=== PATIENT | male | born 1940 | race Caucasian/White ===

== ENCOUNTER 2021-04-19 11:20 | Inpatient (IN) ==
[2021-04-19] MEDS ORDERED: AMIODARONE / D5W 150 MG/100 ML BAG IV STA (12:12)
[2021-04-19] MEDS ORDERED: STAT IV Infusion **Titration per Protocol STA (12:12)
[2021-04-19] MEDS ORDERED: AMIODARONE IV BOLUS & DRIP IV STA (12:12)
[2021-04-19] MEDS ORDERED: 0.2 MICRON FILTER SET 1 EA IV ONE (12:12)
[2021-04-19 12:21] LABS: Basophils # (auto) 0.01 K/uL (0-0.2); Basophils % (auto) 0.2 %; Eosinophils # (auto) 0.15 K/uL (0-0.5); Eosinophils % (auto) 2.6 %; Hematocrit (blood only) 44.9 % (42-52); Hemoglobin 14.8 g/dL (14.0-18.0); Immature Granulocytes # (auto) 0.01 K/uL (0.00-0.02); Immature Granulocytes % (auto) 0.2 %; Lymphocytes # (auto) 1.27 K/uL (1.2-3.4); Lymphocytes % (auto) 22.2 %; Mean Corpuscular Hemoglobin 30.5 pg (25-34); Mean Corpuscular Volume 92.4 fL (80-100); Mean Platelet Volume 10.3 fL (7.4-10.4); Monocytes # (auto) 0.43 K/uL (0.11-0.59); Monocytes % (auto) 7.5 %; Neutrophils # (auto) 3.84 K/uL (1.4-6.5); Neutrophils % (auto) 67.3 %; Platelet Count 181 K/uL (130-400); RDW Coefficient of Variation 13.8 % (11.5-14.5); RDW Standard Deviation 46.8 fL (36.4-46.3); Red Blood Count 4.86 M/uL (4.7-6.1); White Blood Count 5.71 K/uL (4.8-10.8)
[2021-04-19] MEDS ORDERED: AMIODARONE / D5W 360 MG/200 ML BAG IV ONE (12:23)
--- NOTE | 2021-04-19 12:23 | Emergency Department Note ---
Impression & Plan Ventricular tachycardia, Chest pain, Cardiac defibrillator in place ED Provider Note Provider: Willie Swann MD DATE OF SERVICE: 04/16/2021 CHIEF COMPLAINT: Pacemaker defibrillation, referred HISTORY OF PRESENT ILLNESS: Patient is a 80-year-old gentleman extensive history of cardiac disease including prior CABG x2, stenting, and pacemaker placement presenting here today referred by his doctor for AICD defibrillation. Patient states yesterday he was doing some work and began to experience a bit of chest discomfort. Took a nitroglycerin and then shortly thereafter felt a little bit dizzy for very brief period and then received a jolt. Since then has not had further issues such as chest pain, shortness of breath, or lightheadedness. Patient denies recent illness. Patient states compliance with her medication including his aspirin, Plavix, and metoprolol. Patient referred here by his doctor for further evaluation given the pacemaker defibrillation which was interrogated in the office and reported to show evidence of episode of VT (~10- 12 secs shock x1 with termination) REVIEW OF SYSTEMS: A total of 10 review of systems was obtained and negative except as stated above in the HPI. 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 NECK: Trachea midline. ENT: Mucous membranes pink and moist. LUNGS: Airway patent. No retractions. Breath sounds clear with good air entry bilaterally. HEART: Regular rate and rhythm. No chest wall tenderness ABDOMEN: Soft and non-tender, without guarding or rebound. SKIN: Acyanotic, warm, dry, without rashes EXTREMITIES: Without swelling, tenderness or deformity NEUROLOGICAL: No focal deficits. No aphasia. No facial droop or slurred speech. Ambulatory. EK bpm sinus rhythm with first-degree AV block occasionally ventricular paced rhythms. No acute ST segment elevation with inferior and lateral T wave inversions noted in a QTC of 464.Compared to previous from July 192009 now with some paced rhythm however fairly persistent T wave inversions. CONTINUOUS CARDIAC MONITORING: was ordered and showed a heart rate of 60-80s bpm in sinus rhythm first-degree block with intermittently paced rhythms without evidence of V. tach. Patient's laboratory studies and imaging reviewed. Differential includes Premature contractions, cardiac ischemia, electrolyte abnormality, cardiac dysrhythmia, thyroid dysfunction, pulmonary embolism, infection, gastrointestinal, as well as other pathologies. IMPRESSION/MEDICAL DECISION MAKING: Patient denies any active chest pain or complaints at this time.'s extensive cardiac history. Defibrillated by his AICD yesterday after an episode of chest pain with an episode of ventricular tachycardia for approximately 10 to 12 seconds. Seen at bedside by Dr. 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 Patient will be loaded with amiodarone and start an amiodarone drip per cardiology direction. EKG here today without STEMI or obvious significant arrhythmia. Basic labs were obtained. Chest x-ray obtained. Doubt this is acute dissection or PE given the patient's lack of complaint at this time but question if there is some ongoing ischemia versus an episode of dysrhythmia from his underlying cardiac disease and CAD. Blood work today without significant leukocytosis or anemia. No significant electrolyte abnormality noted. Troponin level detectable but an abnormal at 0.044. Again patient without active chest pain at this time. Cardiology is making inquiries to see if the patient can be transferred to [facility] for advanced cardiac catheterization care. Given the current pandemic and busyness of the hospitals patient will likely need to be monitored here until this can be arranged. Hospitalist made aware. Cardiology ordered a TTE and given some delay in transfer planning for cardiac catheterization. DIAGNOSIS: Pacemaker defibrillation, chest pain/angina, ventricular tachycardia DISPOSITION: Hospitalist will evaluate Patient was agreeable with this plan. Critical Care I have personally spent 33 minutes of critical care time in the direct management of this patient. This includes bedside care, interpretation of diagnostic studies, and testing, discussion with consultants, patient, and other required patient management activities. These 33 minutes is in excess of all separately billable procedures. Past Med/Surg History Medical History (Updated 04/19/21 @ 14:18 by Ken Jacobs DO) BPH (benign prostatic hyperplasia) CAD (coronary artery disease) CKD (chronic kidney disease) stage 3, GFR 30-59 ml/min GERD (gastroesophageal reflux disease) H/O cardiac arrest H/O myocardial ischemia HTN (hypertension) Hypothyroidism ICD (implantable cardioverter-defibrillator) in place PLACED 2012 @ [facility] LAST CHECKED VIA REMOTE 09/20/2017 Ischemic cardiomyopathy EF 30-35% Pacemaker PLACED 2012 LAST CHECKED VIA REMOTE 09/20/2017 Prostate cancer Dx 2012, surveillance only Stable angina pectoris Systolic CHF Surgical History (System 11/20/19 @ 11:36 by Eleni Haro) Encounter for insertion of cardiac resynchronization therapy defibrillator H/O two vessel coronary artery bypass graft 1990 and 1999 History of appendectomy History of cardiac cath X6 STENTS (2012 & 2014 [facility]) UNSURE OF DATES -- WILL BRING STENT CARDS DOS History of tonsillectomy Social History (System 11/20/19 @ 11:36 by Eleni Haro) Smoking Status: Never smoker Second Hand Exposure: No; Hx Alcohol Use: No Hx Substance Use: No Preferred Language: Salvadorean Communication Ability: Effective Solution Professional Required: No Beliefs That Will Affect Care: None Current Living Situation: Alone Feels Safe at Home: Yes Assistive Devices: Glasses Allergies Allergies Allergy/AdvReac Type Severity Reaction Status Date / Time pantoprazole [From Protonix] Allergy Unknown Hives Verified 11/20/19 11:36 sucralfate Allergy Unknown Hives Verified 11/20/19 11:36 Home Meds Home Medications Medication Instructions Recorded Confirmed lisinopril 20 mg tablet 20 mg PO QAM #0 07/19/09 04/19/21 amlodipine 5 mg tablet 5 mg PO QAM #0 08/15/11 04/19/21 levothyroxine 50 mcg tablet 50 mcg PO QAM #0 08/15/11 04/19/21 aspirin 81 mg tablet,delayed 81 mg PO QAM 01/16/18 04/19/21 release (Aspirin Low Dose) clopidogrel 75 mg tablet (Plavix) 75 mg PO QAM 01/16/18 04/19/21 finasteride 5 mg tablet 5 mg PO QAM 01/16/18 04/19/21 isosorbide mononitrate 30 mg 30 mg PO QAM 01/16/18 04/19/21 tablet,extended release 24 hr metoprolol succinate 50 mg 50 mg PO QAM 01/16/18 04/19/21 tablet,extended release 24 hr nitroglycerin 0.4 mg sublingual 1 dose SUBLINGUAL UD PRN 01/16/18 04/19/21 tablet (Nitrostat) metoprolol succinate 25 mg 25 mg PO QPM 04/19/21 04/19/21 tablet,extended release 24 hr zoster vaccine live (PF) 1 ea IM Q2M 04/19/21 04/19/21 Results & Data (ED) Vital Signs Vital Signs - 24 hr 04/19/21 11:27 04/19/21 12:19 04/19/21 12:20 Temperature 36.7 C Temperature Source Temporal Artery Scan Pulse Rate 71 66 63 Pulse Rate [Left Radial] Pulse Rate from SpO2 Sensor 66 62 Pulse Rhythm Pulse Rhythm [Left Radial] Pulse Strength [Left Radial] Respiratory Rate 18 21 23 Respiratory Effort / Characteristics Non-Labored Spontaneous Respiratory Depth Normal Respiratory Pattern Regular Blood Pressure 150/87 H Blood Pressure [Left Radial Artery] Blood Pressure Mean 108 Blood Pressure Mean [Left Radial Artery] Blood Pressure Position Sitting Blood Pressure Position [Left Radial Artery] Pulse Oximetry 98 97 96 Oxygen Delivery Method Room Air Sepsis Recent Fever Within 48 Hours No Sepsis New/Unexplained Change in Mental Status N/A Sepsis Action Taken by Nursing No Action Required 04/19/21 12:30 04/19/21 12:40 04/19/21 12:50 Temperature Temperature Source Pulse Rate 67 67 73 Pulse Rate [Left Radial] Pulse Rate from SpO2 Sensor 64 66 67 Pulse Rhythm Pulse Rhythm [Left Radial] Pulse Strength [Left Radial] Respiratory Rate 22 22 21 Respiratory Effort / Characteristics Respiratory Depth Respiratory Pattern Blood Pressure Blood Pressure [Left Radial Artery] Blood Pressure Mean Blood Pressure Mean [Left Radial Artery] Blood Pressure Position Blood Pressure Position [Left Radial Artery] Pulse Oximetry 94 98 99 Oxygen Delivery Method Sepsis Recent Fever Within 48 Hours Sepsis New/Unexplained Change in Mental Status Sepsis Action Taken by Nursing 04/19/21 12:51 04/19/21 12:54 04/19/21 13:00 Temperature Temperature Source Pulse Rate 64 66 Pulse Rate [Left Radial] 64 Pulse Rate from SpO2 Sensor 66 Pulse Rhythm Regular Pulse Rhythm [Left Radial] Regular Pulse Strength [Left Radial] Normal Respiratory Rate 23 23 24 Respiratory Effort / Characteristics Non-Labored Respiratory Depth Normal Respiratory Pattern Regular Blood Pressure Blood Pressure [Left Radial Artery] 116/74 Blood Pressure Mean Blood Pressure Mean [Left Radial Artery] 88 Blood Pressure Position Blood Pressure Position [Left Radial Artery] Sitting Pulse Oximetry 98 98 97 Oxygen Delivery Method Room Air Room Air Sepsis Recent Fever Within 48 Hours Sepsis New/Unexplained Change in Mental Status Sepsis Action Taken by Nursing 04/19/21 13:10 04/19/21 13:20 Temperature Temperature Source Pulse Rate 62 61 Pulse Rate [Left Radial] Pulse Rate from SpO2 Sensor 61 Pulse Rhythm Pulse Rhythm [Left Radial] Pulse Strength [Left Radial] Respiratory Rate 25 H 20 Respiratory Effort / Characteristics Respiratory Depth Respiratory Pattern Blood Pressure Blood Pressure [Left Radial Artery] Blood Pressure Mean Blood Pressure Mean [Left Radial Artery] Blood Pressure Position Blood Pressure Position [Left Radial Artery] Pulse Oximetry 97 Oxygen Delivery Method Sepsis Recent Fever Within 48 Hours Sepsis New/Unexplained Change in Mental Status Sepsis Action Taken by Nursing Laboratory Data Result diagrams: 04/19/21 Unknown 04/19/21 Unknown Lab Results 04/19/21 04/19/21 04/19/21 Range/Units 12:50 Unknown Unknown WBC 5.71 (4.8-10.8) K/uL RBC 4.86 (4.7-6.1) M/uL Hgb 14.8 (14.0-18.0) g/dL Hct 44.9 (42-52) % MCV 92.4 (80-100) fL MCH 30.5 (25-34) pg MCHC 33.0 (32-36) g/dL RDW Std Deviation 46.8 H (36.4-46.3) fL RDW Coeff of Ángel 13.8 (11.5-14.5) % Plt Count 181 (130-400) K/uL MPV 10.3 (7.4-10.4) fL Immature Gran % (Auto) 0.2 % Neut % (Auto) 67.3 % Lymph % (Auto) 22.2 % Glades % (Auto) 7.5 % Eos % (Auto) 2.6 % Baso % (Auto) 0.2 % Neut # (Auto) 3.84 (1.4-6.5) K/uL Lymph # (Auto) 1.27 (1.2-3.4) K/uL Glades # (Auto) 0.43 (0.11-0.59) K/uL Eos # (Auto) 0.15 (0-0.5) K/uL Baso # (Auto) 0.01 (0-0.2) K/uL Immature Gran # (Auto) 0.01 (0.00-0.02) K/uL PT 11.1 (9.0-12.0) Seconds INR 1.1 (0.9-1.1) APTT 24.6 (21.0-31.0) Seconds PTT Ratio 0.9 Sodium (136-145) mmol/L Potassium (3.5-5.1) mmol/L Chloride (98-107) mmol/L Carbon Dioxide (21-32) mmol/L Anion Gap (3-11) BUN (7-18) mg/dl Creatinine (0.6-1.4) mg/dl Est Cr Clr Drug Dosing ml/min Est GFR ( Amer) ml/min Est GFR (Non-Af Amer) ml/min BUN/Creatinine Ratio (10-20) Glucose (70-99) mg/dl Calcium (8.5-10.1) mg/dl Magnesium (1.8-2.4) mg/dl Total Bilirubin (0.2-1) mg/dl AST (15-37) U/L ALT (12-78) Alkaline Phosphatase (45-117) U/L Troponin I (0-0.045) ng/ml Total Protein (6.4-8.2) gm/dl Albumin (3.4-5.0) gm/dl Globulin (2.5-4.0) gm/dl Albumin/Globulin Ratio (0.9-2) SARS-CoV-2, RNA, NAAT NEGATIVE (NEGATIVE) 04/19/21 Range/Units Unknown WBC (4.8-10.8) K/uL RBC (4.7-6.1) M/uL Hgb (14.0-18.0) g/dL Hct (42-52) % MCV (80-100) fL MCH (25-34) pg MCHC (32-36) g/dL RDW Std Deviation (36.4-46.3) fL RDW Coeff of Ángel (11.5-14.5) % Plt Count (130-400) K/uL MPV (7.4-10.4) fL Immature Gran % (Auto) % Neut % (Auto) % Lymph % (Auto) % Glades % (Auto) % Eos % (Auto) % Baso % (Auto) % Neut # (Auto) (1.4-6.5) K/uL Lymph # (Auto) (1.2-3.4) K/uL Glades # (Auto) (0.11-0.59) K/uL Eos # (Auto) (0-0.5) K/uL Baso # (Auto) (0-0.2) K/uL Immature Gran # (Auto) (0.00-0.02) K/uL PT (9.0-12.0) Seconds INR (0.9-1.1) APTT (21.0-31.0) Seconds PTT Ratio Sodium 142 (136-145) mmol/L Potassium 4.2 (3.5-5.1) mmol/L Chloride 110 H (98-107) mmol/L Carbon Dioxide 27 (21-32) mmol/L Anion Gap 5.0 (3-11) BUN 17 (7-18) mg/dl Creatinine 1.25 (0.6-1.4) mg/dl Est Cr Clr Drug Dosing 41.1 ml/min Est GFR ( Amer) 63.1 ml/min Est GFR (Non-Af Amer) 54.4 ml/min BUN/Creatinine Ratio 13.4 (10-20) Glucose 86 (70-99) mg/dl Calcium 8.8 (8.5-10.1) mg/dl Magnesium 2.5 H (1.8-2.4) mg/dl Total Bilirubin 0.7 (0.2-1) mg/dl AST 17 (15-37) U/L ALT 29 (12-78) Alkaline Phosphatase 60 (45-117) U/L Troponin I 0.044 (0-0.045) ng/ml Total Protein 7.7 (6.4-8.2) gm/dl Albumin 3.6 (3.4-5.0) gm/dl Globulin 4.1 H (2.5-4.0) gm/dl Albumin/Globulin Ratio 0.9 (0.9-2) SARS-CoV-2, RNA, NAAT (NEGATIVE) Administered Medications Amiodarone HCl/Dextrose (Nexterone / D5w) 360 mg in 200 mls @ 33.333 mls/hr IV ONE ONE Stop: 04/19/21 18:22 Last Admin: 04/19/21 13:04 Dose: 33.3 mls/hr Documented by: [id number] Cosigned by: [id number] Discontinued Medications Amiodarone HCl (Amiodarone Iv Bolus & Drip) 1 ea IV NOW STA; Protocol Stop: 04/19/21 12:13 Last Admin: 04/19/21 12:42 Dose: 1 ea Documented by: [id number] Amiodarone HCl/Dextrose (Nexterone / D5w) 150 mg in 100 mls @ 600 mls/hr IV NOW STA Stop: 04/19/21 12:21 Last Admin: 04/19/21 12:42 Dose: 600 mls/hr Documented by: [id number] Cosigned by: [id number] Miscellaneous (Stat Iv Infusion Titration Per Protocol) 1 ea N/A NOW STA Stop: 04/19/21 12:13 Last Admin: 04/19/21 12:42 Dose: 1 ea Documented by: [id number] Imaging Data Radiologist's Impression: Chest X-Ray 04/19/21 12:13 XR chest 1V portable HISTORY: 80 years-old Male pacemaker defib status post placement of a left subclavian pacer COMPARISON: Chest radiograph 07/19/2009 TECHNIQUE: Portable AP view of the chest FINDINGS: Cardiac silhouette is mildly enlarged. Prior median sternotomy. Surgical clips of the left heart border with coronary arterial stents. No pneumothorax, pleural effusion or overt pulmonary edema. Mild linear subsegmental left basilar opacities. The lead left subclavian pacer/AICD. No acute fracture. IMPRESSION: 1. Cardiomegaly with left subclavian pacer/AICD. 2. Minimal linear subsegmental left basilar scarring/atelectasis. ACT 112: Negative or not required by law. The above report was generated using voice recognition software. It may contain grammatical, syntax or spelling errors. Electronically signed by: Ghanshyam Jon M.D. 04/19/2021 12:32 PM Discharge Plan Visit Data Chief Complaint: Cardiac Assessment Stated Complaint: CHECK DEFIBILATOR/ERLINDA OFF YESTERDAY ED Provider: Willie Swann Discharge Problem: Ventricular tachycardia, Chest pain, Cardiac defibrillator in place Patient Disposition: Being Evaluated by Hospitalist Forms Stand Alone Forms: [facility] [employer] - [place] Prescriptions Prescriptions: No Action lisinopril 20 mg Tablet 20 mg PO QAM Qty: 0 RF: 0 amlodipine 5 mg Tablet 5 mg PO QAM Qty: 0 RF: 0 levothyroxine 50 mcg Tablet 50 mcg PO QAM Qty: 0 RF: 0 isosorbide mononitrate 30 mg Tablet Extended Release 24 Hr 30 mg PO QAM RF: 0 clopidogrel [Plavix] 75 mg Tablet 75 mg PO QAM RF: 0 metoprolol succinate 50 mg Tablet Extended Release 24 Hr 50 mg PO QAM RF: 0 finasteride 5 mg Tablet 5 mg PO QAM RF: 0 aspirin [Aspirin Low Dose] 81 mg Tablet,Delayed Release (Dr/Ec) 81 mg PO QAM RF: 0 nitroglycerin [Nitrostat] 0.4 mg Tablet, Sublingual 1 dose Sublingual UD PRN (Reason: Chest Pain) RF: 0 metoprolol succinate 25 mg Tablet Extended Release 24 Hr 25 mg PO QPM RF: 0 zoster vaccine live (PF) 1 ea IM Q2M RF: 0 Referrals Referrals: Arpit Thurston MD [Primary Care Provider] - Discharge Problem: Chest pain Qualifiers: Chest pain type: unspecified Qualified Code(s): R07.9 - Chest pain, unspecified
[2021-04-19 12:32] LABS: INR 1.1 (0.9-1.1); Partial Thromboplastin Ratio 0.9; Partial Thromboplastin Time 24.6 Seconds (21.0-31.0); Prothrombin Time 11.1 Seconds (9.0-12.0)
--- NOTE | 2021-04-19 12:34 | XRay Report ---
XR chest 1V portable HISTORY: 80 years-old Male pacemaker defib status post placement of a left subclavian pacer COMPARISON: Chest radiograph 07/19/2009 TECHNIQUE: Portable AP view of the chest FINDINGS: Cardiac silhouette is mildly enlarged. Prior median sternotomy. Surgical clips of the left heart bord er with coronary arterial stents. No pneumothorax, pleural effusion or overt pulmonary edema. Mild li near subsegmental left basilar opacities. The lead left subclavian pacer/AICD. No acute fracture. IMPRESSION: 1. Cardiomegaly with left subclavian pacer/AICD. 2. Minimal linear subsegmental left basilar scarring/atelectasis. ACT 112: Negative or not required by law. The above report was generated using voice recognition software. It may contain grammatical, syntax o r spelling errors. Electronically signed by: Ghanshyam Jon M.D. 04/19/2021 12:32 PM
--- NOTE | 2021-04-19 12:44 | Cardiology Consultation ---
Date of Consultation April 19, 2021 Assessment & Plan (1) Unstable angina pectoris: (2) Ventricular tachycardia: (3) Cardiac defibrillator in place: 80-year-old male with longstanding history of schema cardiomyopathy, moderate left ventricular systolic dysfunction, previously survived cardiac arrest, presents with worsening crescendo angina pattern for over a week, with angina yesterday followed by appropriate AICD discharge for ventricular fibrillation. At time presentation to the emergency room he has no current chest discomfort. Initial troponin is negative. Mild new repolarization changes in the lateral precordial leads of his EKG without ST elevation. The patient has had multiple complex coronary interventions performed at [facility] most recently in 2014. Initial consideration was hospital hospital transfer for ongoing evaluation and consideration of high risk cardiac catheterization at [facility], however with high emergency room and hospital volumes related to the ongoing pandemic, rapid transfer was not an option. Case reviewed with Dr. Persaud of [facility] interventional cardiology and we reviewed the 2015 films. Option reviewed with patient/son. At this time we will proceed with diagnostic cardiac catheterization here at [facility]. Continue prior to hospital medications including aspirin and clopidogrel. Ad[facility] telemetry floor[facility] amiodarone infusion has been initiated given the recent ventricular arrhythmias. History of Present Illness History of Present Illness Jose HendrixSr is a 73-year-old male seen in cardiology consultation in the emergency room per the request of my partner Dr Danielle and Dr Swann of emergency medicine for the evaluation of unstable angina and recent AICD discharge. The patient has a complex past cardiac history as described below. He has a history of chronic exertional angina, and on a chronic basis for at least the last year he takes nitroglycerin. Recently, for at least the last week he has been having more frequent episodes of angina at lower levels of exertion and has been taking multiple nitroglycerin tablets on a daily basis. 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 His son witnessed it and noticed that he had turned white. His AICD was interrogated remotely today, and it was found that the patient had a ventricular fibrillation event, successfully treated with AICD discharge. He has been in sinus rhythm since. Past Cardiac History: Patient with aggressive early onset coronary heart disease, initially having had coronary bypass graft surgery in 1990 at [place]. He had a second coronary bypass surgery in 1999 (or 2000) in [place] (although the patient's office chart describes that perhaps he had his second surgery at [facility] , the patient tells me he was in [place]) He has had multiple percutaneous coronary interventions in the meantime, most recently having had 3 cardiac catheterizations within a short span in July,, with complex PCI of the vein graft to the obtuse marginal, and 3 drug- eluting stents to the proximal [place] right coronary artery which was completely occluded distally. He has known 100% occlusions of his [place] LAD, circumflex and mid/distal RCA. History of ischemic cardiomyopathy, survived cardiac arrest, [place] dual- chamber AICD (placed 2002) with 8.9 months of estimated generator longevity LVEF 30-35%, chronic RCA territory scar, LAD territory hypokinesis Dyslipidemia Stage IIIa chronic kidney disease Allergies Allergy/AdvReac Type Severity Reaction Status Date / Time pantoprazole [From Protonix] Allergy Unknown Hives Verified 11/20/19 11:36 sucralfate Allergy Unknown Hives Verified 11/20/19 11:36 Home Medications Medication Instructions Recorded Confirmed Type lisinopril 20 mg tablet 20 mg PO QAM #0 07/19/09 02/23/19 History amlodipine 5 mg tablet 5 mg PO QAM #0 08/15/11 02/23/19 History levothyroxine 50 mcg tablet 50 mcg PO QAM #0 08/15/11 02/23/19 History aspirin 81 mg tablet,delayed 81 mg PO QAM 01/16/18 02/23/19 History release (Aspirin Low Dose) clopidogrel 75 mg tablet (Plavix) 75 mg PO QAM 01/16/18 02/23/19 History finasteride 5 mg tablet 5 mg PO QAM 01/16/18 01/20/18 History isosorbide mononitrate 30 mg 30 mg PO QAM 01/16/18 02/23/19 History tablet,extended release 24 hr metoprolol succinate 50 mg 50 mg PO QAM 01/16/18 02/23/19 History tablet,extended release 24 hr nitroglycerin 0.4 mg sublingual 1 dose SUBLINGUAL UD PRN 01/16/18 02/23/19 History tablet (Nitrostat) metoprolol succinate 25 mg 25 mg PO QPM 04/19/21 04/19/21 History tablet,extended release 24 hr zoster vaccine live (PF) 1 ea IM Q2M 04/19/21 04/19/21 History Patient History Medical History (Updated 04/19/21 @ 14:18 by Ken Jacobs DO) BPH (benign prostatic hyperplasia) CAD (coronary artery disease) CKD (chronic kidney disease) stage 3, GFR 30-59 ml/min GERD (gastroesophageal reflux disease) H/O cardiac arrest H/O myocardial ischemia HTN (hypertension) Hypothyroidism ICD (implantable cardioverter-defibrillator) in place PLACED 2012 @ [facility] LAST CHECKED VIA REMOTE 09/20/2017 Ischemic cardiomyopathy EF 30-35% Pacemaker PLACED 2012 LAST CHECKED VIA REMOTE 09/20/2017 Prostate cancer Dx 2011, surveillance only Stable angina pectoris Systolic CHF Surgical History Encounter for insertion of cardiac resynchronization therapy defibrillator H/O two vessel coronary artery bypass graft 1990 and 1999 History of appendectomy History of cardiac cath X6 STENTS (2012 & 2014 [place]) UNSURE OF DATES -- WILL BRING STENT CARDS DOS History of tonsillectomy Social History Smoking Status: Never smoker Second Hand Exposure: No; Hx Alcohol Use: No Hx Substance Use: No Preferred Language: Belgian Communication Ability: Effective Lather Apprentice Required: No Beliefs That Will Affect Care: None Current Living Situation: Alone Feels Safe at Home: Yes Assistive Devices: Glasses Review of Systems Review of Systems: All systems reviewed & are unremarkable except as noted in HPI & below Physical Exam Physical Exam: Temp Pulse Resp BP Pulse Ox 36.7 C 61 20 116/74 97 04/19/21 11:27 04/19/21 13:20 04/19/21 13:20 04/19/21 12:51 04/19/21 13:20 Constitutional: WD/WN, vitals as above Respiratory: normal respiratory effort, lungs clear to auscultation Cardiovascular: RRR, no murmur, no edema Gastrointestinal (Abdomen): normal bowel sounds, soft, nontender, no hepatosplenomegaly Neurologic: PERRL, EOMI, accommodation nl, no face palsy, no dysarthria Results & Data ([facility]) Vital Signs (Past 12 Hours) Vital Signs Temp Pulse Resp BP Pulse Ox 04/19/21 11:27 36.7 C 71 18 150/87 H 98 Laboratory Results Cardiac Enzymes 04/19/21 Range/Units Unknown AST 17 (15-37) U/L Troponin I 0.044 (0-0.045) ng/ml Coagulation 04/19/21 Range/Units Unknown PT 11.1 (9.0-12.0) Seconds APTT 24.6 (21.0-31.0) Seconds CBC 04/19/21 Range/Units Unknown WBC 5.71 (4.8-10.8) K/uL RBC 4.86 (4.7-6.1) M/uL Hgb 14.8 (14.0-18.0) g/dL Hct 44.9 (42-52) % Plt Count 181 (130-400) K/uL Neut # (Auto) 3.84 (1.4-6.5) K/uL Lymph # (Auto) 1.27 (1.2-3.4) K/uL [place] # (Auto) 0.43 (0.11-0.59) K/uL Eos # (Auto) 0.15 (0-0.5) K/uL Baso # (Auto) 0.01 (0-0.2) K/uL Comprehensive Metabolic Panel 04/19/21 Range/Units Unknown Sodium 142 (136-145) mmol/L Potassium 4.2 (3.5-5.1) mmol/L Chloride 110 H (98-107) mmol/L Carbon Dioxide 27 (21-32) mmol/L BUN 17 (7-18) mg/dl Creatinine 1.25 (0.6-1.4) mg/dl Glucose 86 (70-99) mg/dl Calcium 8.8 (8.5-10.1) mg/dl AST 17 (15-37) U/L ALT 29 (12-78) Alkaline Phosphatase 60 (45-117) U/L Total Protein 7.7 (6.4-8.2) gm/dl Albumin 3.6 (3.4-5.0) gm/dl Intake and Output 04/18/21 04/19/21 04/19/21 22:59 06:59 14:59 Other: Weight 69.6 kg Weight Measurement Method Chair Scale Patient Weight 04/20/21 06:59 Weight 69.6 kg Diagnostic Findings EKG performed today 04/19/2021 reviewed independently reveals sinus rhythm at 72 bpm with first-degree AV block, demand atrial and ventricular pacing, incomplete left bundle branch block, T wave inversions in the high lateral leads I and aVL, low amplitude T wave inversions in the lateral precordial leads V4 to V6. -Compared to the previous tracing performed as an outpatient 02/23/2020, the deep T wave inversions in leads I and aVL are chronic, the T wave inversions in leads V4 to V6 are new.
[2021-04-19 12:45] LABS: Albumin Level 3.6 gm/dl (3.4-5.0); BUN Creatinine Ratio 13.4 (10-20); Calcium 8.8 mg/dl (8.5-10.1); Creatinine Clr Calc Pharmacy 41.1 ml/min; Est GFR (African American) 63.1 ml/min; Est GFR (Non-African American) 54.4 ml/min; Magnesium 2.5 mg/dl (1.8-2.4); Potassium 4.2 mmol/L (3.5-5.1)
[2021-04-19 12:49] LABS: Albumin Globulin Ratio 0.9 (0.9-2); Bilirubin,Total 0.7 mg/dl (0.2-1); Globulin 4.1 gm/dl (2.5-4.0); Total Protein 7.7 gm/dl (6.4-8.2); Troponin I 0.044 ng/ml (0-0.045)
--- NOTE | 2021-04-19 14:01 | History & Physical Report ---
Date of Service April 19, 2021 Assessment & Plan (1) Unstable angina pectoris: (2) Ventricular tachycardia: (3) ICD (implantable cardioverter-defibrillator) discharge: Plan: CAD S/P Stents and CABG Ischemic cardiomyopathy, ICD in place Episode VT Patient is 80-year-old male with PMH complex cardiac history including unstable angina, ischemic cardiomyopathy, s/p ICD, history of cardiac arrest, CAD s/p stents and CABG, TIA, CKD III, HTN, HLD, prostate cancer, BPH presented to ER with complaint of episode of chest pain yesterday with firing of his ICD. Denies CP today. In ER vitals stable, initial troponin negative. EKG with some changes. Cardiology-Dr. Jacobs had evaluated patient in ER and initial attempt to transfer to [facility] with patient's complex cardiac history and high risk, however transfer at this time was not available. Dr. Persaud-interventional cardiology took patient to [facility] from ER. Amiodarone drip started in ER. Will continue Continue continue aspirin, Plavix, isosorbide, metoprolol succinate Will start low dose rosuvastatin. prior statin intolerance listed in outpatient notes Trend troponin EKG in a.m. CBC, BMP in a.m. Cardiology following along HTN Continue lisinopril, amlodipine H/O TIA Continue aspirin, plavix Hypothyroid Continue levothyroxine H/O Prostate Cancer, BPH Continue finasteride DVT Prophylaxis SCDs Full Code as per discussion with pt Follows with Dr Gale for routine care Pt was seen and care coordinated with Dr Allison. See addendum History of Present Illness Chief Complaint: ICD fired yesterday Primary Care Provider: Arpit Thurston MD Patient is 80-year-old male with PMH complex cardiac history including unstable angina, ischemic cardiomyopathy, s/p ICD, history of cardiac arrest, CAD s/p stents and CABG, TIA, CKD III, HTN, HLD, prostate cancer, BPH presented to ER with complaint of episode of chest pain yesterday with firing of his ICD. Patient reports was working yesterday using heavy equipment and when he had onset of right chest pain that radiated to right side of jaw. He reports he felt short of breath. He states he took 1 nitro and within 30 minutes chest pain resolved. He does report that had firing of his ICD yesterday and after that he felt dizzy. Patient denies any further chest pain or any recurrent ICD firings. He states "I feel fine right now". Cardiology-Dr. Jacobs had evaluated patient in ER and initial attempt to transfer to [facility] with patient's complex cardiac history and high risk, however transfer at this time was not available. Dr. Persaud-interventional cardiology took patient to [facility] from ER. Denies fever/chills, diaphoresis, N/V/D/C, QUINTERO, dizziness, syncope, vision changes, neck pain, cough, sore throat, choking, otalgia, rhinorrhea, abdominal pain, paresthesias, weakness, extremity weakness, extremity edema, rashes, urinary symptoms. Allergies Allergy/AdvReac Type Severity Reaction Status Date / Time pantoprazole [From Protonix] Allergy Unknown Hives Verified 11/20/19 11:36 sucralfate Allergy Unknown Hives Verified 11/20/19 11:36 Home Medications Medication Instructions Recorded Confirmed Type lisinopril 20 mg tablet 20 mg PO QAM #0 07/19/09 04/19/21 History amlodipine 5 mg tablet 5 mg PO QAM #0 08/15/11 04/19/21 History levothyroxine 50 mcg tablet 50 mcg PO QAM #0 08/15/11 04/19/21 History aspirin 81 mg tablet,delayed 81 mg PO QAM 01/16/18 04/19/21 History release (Aspirin Low Dose) clopidogrel 75 mg tablet (Plavix) 75 mg PO QAM 01/16/18 04/19/21 History finasteride 5 mg tablet 5 mg PO QAM 01/16/18 04/19/21 History isosorbide mononitrate 30 mg 30 mg PO QAM 01/16/18 04/19/21 History tablet,extended release 24 hr metoprolol succinate 50 mg 50 mg PO QAM 01/16/18 04/19/21 History tablet,extended release 24 hr nitroglycerin 0.4 mg sublingual 1 dose SUBLINGUAL UD PRN 01/16/18 04/19/21 History tablet (Nitrostat) metoprolol succinate 25 mg 25 mg PO QPM 04/19/21 04/19/21 History tablet,extended release 24 hr zoster vaccine live (PF) 1 ea IM Q2M 04/19/21 04/19/21 History Past Med/Surg History Medical History (Updated 04/19/21 @ 17:20 by Carmen Finn PA-C) BPH (benign prostatic hyperplasia) CAD (coronary artery disease) CKD (chronic kidney disease) stage 3, GFR 30-59 ml/min GERD (gastroesophageal reflux disease) H/O cardiac arrest H/O myocardial ischemia HTN (hypertension) Hypothyroidism ICD (implantable cardioverter-defibrillator) in place PLACED 2012 @ [facility] LAST CHECKED VIA REMOTE 09/20/2017 Ischemic cardiomyopathy EF 30-35% Pacemaker PLACED 2012 LAST CHECKED VIA REMOTE 09/20/2017 Prostate cancer Dx 2011, surveillance only Stable angina pectoris Systolic CHF Surgical History Encounter for insertion of cardiac resynchronization therapy defibrillator H/O two vessel coronary artery bypass graft 1990 and 1999 History of appendectomy History of cardiac cath X6 STENTS (2012 & 2014 [place]) UNSURE OF DATES -- WILL BRING STENT CARDS DOS History of tonsillectomy Family History (Updated 04/19/21 @ 17:19 by Carmen Finn PA-C) Other Coronary heart disease Social History Smoking Status: Never smoker Second Hand Exposure: No; Hx Alcohol Use: No Hx Substance Use: No Preferred Language: Kiswahili Communication Ability: Effective 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: No Beliefs That Will Affect Care: None Current Living Situation: Alone Other Information That Helps Us Care for You: No Feels Safe at Home: Yes Safety Concerns: Feels Safe At This Time Assistive Devices: Glasses Review of Systems Review of Systems: All systems reviewed & are unremarkable except as noted in HPI & below Physical Exam Physical Exam: General: no distress, WDWN Head: normocephalic, atraumatic Eyes: conjunctiva non-injected, anicteric ENT: normal inspection external ears, nose, mucous membranes moist Neck: supple, trachea midline Lungs: clear, no respiratory distress, no wheezing/rhonchi/rales CV: RRR, no pretibial edema Abd: normal BS, soft, non-tender Ext: no cyanosis, no calf tenderness Neuro: A&O x 3, no focal deficits noted, normal affect Skin: warm, dry Results & Data Results & Data ([facility]) Vital Signs (Past 12 Hours) Vital Signs Temp Pulse Pulse Resp BP BP Pulse Ox 04/19/21 13:20 61 20 97 04/19/21 13:10 62 25 H 04/19/21 13:00 66 24 97 04/19/21 12:54 64 23 98 04/19/21 12:51 64 23 116/74 98 04/19/21 12:50 73 21 99 04/19/21 12:40 67 22 98 04/19/21 12:30 67 22 94 04/19/21 12:20 63 23 96 04/19/21 12:19 66 21 97 04/19/21 11:27 36.7 C 71 18 150/87 H 98 Laboratory Results Short CBC 04/19/21 Range/Units Unknown WBC 5.71 (4.8-10.8) K/uL Hgb 14.8 (14.0-18.0) g/dL Hct 44.9 (42-52) % Plt Count 181 (130-400) K/uL BMP 04/19/21 Unknown Sodium 142 Potassium 4.2 Chloride 110 H Carbon Dioxide 27 BUN 17 Creatinine 1.25 Glucose 86 Calcium 8.8 Cardiac Enzymes 04/19/21 Range/Units Unknown Troponin I 0.044 (0-0.045) ng/ml Liver Function 04/19/21 Range/Units Unknown Total Bilirubin 0.7 (0.2-1) mg/dl AST 17 (15-37) U/L ALT 29 (12-78) Alkaline Phosphatase 60 (45-117) U/L Albumin 3.6 (3.4-5.0) gm/dl Diagnostic Findings Chest X-Ray 04/19/21 12:13 XR chest 1V portable HISTORY: 80 years-old Male pacemaker defib status post placement of a left subclavian pacer COMPARISON: Chest radiograph 07/19/2009 TECHNIQUE: Portable AP view of the chest FINDINGS: Cardiac silhouette is mildly enlarged. Prior median sternotomy. Surgical clips of the left heart border with coronary arterial stents. No pneumothorax, pleural effusion or overt pulmonary edema. Mild linear subsegmental left basilar opacities. The lead left subclavian pacer/AICD. No acute fracture. IMPRESSION: 1. Cardiomegaly with left subclavian pacer/AICD. 2. Minimal linear subsegmental left basilar scarring/atelectasis. ACT 112: Negative or not required by law. The above report was generated using voice recognition software. It may contain grammatical, syntax or spelling errors. Electronically signed by: Ghanshyam Jon M.D. 04/19/2021 12:32 PM Supervising Physician Co-Signing Physician Notes Patient is a 80-year-old male with history of unstable angina, ischemic cardiomyopathy, coronary artery disease and other medical problems presents with history of chest pain relieved with nitroglycerin and firing of ICD yesterday. He states chest pain lasted for about 30 minutes retrosternal, radiating to jaw, associated with shortness of breath. Patient also noticed to have ICD firing associated with dizziness. Please review HPI for complete details of presentation. AICD interrogation showed ventricular fibrillation, successfully AICD discharge. Patient was planned to be sent to emergent cardiac catheterization. His initial troponin was elevated at 0.52, TSH within normal limits 1.3. On exam patient is moderately built and nourished, no apparent distress, normocephalic atraumatic, EOMI, lungs are clear to auscultation, n ormal breath sounds, S1-S2, no murmur, no pedal edema, abdomen soft, nontender, no guarding or rigidity is noted alert, awake, oriented, grossly no focal deficits. Unstable angina, ventricular tachycardia, AICD discharge. Patient is planned for emergent cardiac catheterization. Appreciate cardiology input. We will continue to trend cardiac enzymes, consider resting echo. Plan to resume dual antiplatelet therapy and start on Lipitor. Continue beta-shamir. Further management based on cardiac catheterization. I personally reviewed the record. Patient is interviewed and examined at bedside. Patient's care is coordinated with Carmen Finn PA-C. Please refer to the documentation above for details of patient's presentation and for discussion of other issues.
[2021-04-19] MEDS ORDERED: niCARdipine HCL INJ 2.5 MG/ML 10 ML AMP ONE (14:08)
[2021-04-19] MEDS ORDERED: MIDAZOLAM HCL 1 MG/ML 2ML VIAL ONE ×2 (14:08→15:20)
[2021-04-19] MEDS ORDERED: fentaNYL citrate 100 MCG/2 ML VIAL ONE (14:08)
[2021-04-19] MEDS ORDERED: HEPARIN (PORCINE) 1000 UNIT/ML 10 ML (CATH LAB USE ONLY) ONE (14:09)
[2021-04-19] MEDS ORDERED: NITROGLYCERIN/D5W 100MCG/ML 20ML SYR ONE (14:09)
--- NOTE | 2021-04-19 14:23 | Pre Anesthesia Assessment ---
Date of Service April 19, 2021 Pre Sedation Assessment Vital Signs Temp Pulse Pulse Resp BP BP Pulse Ox 04/19/21 13:20 61 20 97 04/19/21 13:10 62 25 H 04/19/21 13:00 66 24 97 04/19/21 12:54 64 23 98 04/19/21 12:51 64 23 116/74 98 04/19/21 12:50 73 21 99 04/19/21 12:40 67 22 98 04/19/21 12:30 67 22 94 04/19/21 12:20 63 23 96 04/19/21 12:19 66 21 97 04/19/21 11:27 98.1 F 71 18 150/87 H 98 Cardiovascular RRR, no murmur, no edema Respiratory normal respiratory effort, lungs clear to auscultation Pre-Sedation Airway Assessment Smoking Status: Never smoker Hx Sleep Apnea: No Hx Difficult Intubation: No Short, Thick Neck: No Thyromental Distance: < 3.5 Finger Breadths Mallampati Class: III ASA: ASA3 Procedure Planning Contraindications for Sedation: none Current Medications Reviewed: Yes Notes The planned sedation has been discussed with the patient. Informed Consent was obtained. I have identified the patient, determined the appropriateness of sedation and have assessed the patient immediately prior to the procedure. All medicine(s) and interventions are by my order.
[2021-04-19] MEDS ORDERED: CLOPIDOGREL BISULFATE 300 MG TAB ONE (16:09)
--- NOTE | 2021-04-19 16:32 | Post Anesthesia Assessment ---
Date of Service April 19, 2021 Post Sedation Assessment Vital Signs Temp Pulse Pulse Resp BP BP Pulse Ox 04/19/21 16:19 63 16 108/78 95 04/19/21 13:20 61 20 97 04/19/21 13:10 62 25 H 04/19/21 13:00 66 24 97 04/19/21 12:54 64 23 98 04/19/21 12:51 64 23 116/74 98 04/19/21 12:50 73 21 99 04/19/21 12:40 67 22 98 04/19/21 12:30 67 22 94 04/19/21 12:20 63 23 96 04/19/21 12:19 66 21 97 04/19/21 11:27 98.1 F 71 18 150/87 H 98 Recovery Score Activity: Moves 4 extremities Respiration: Deep Breath/Cough Circulation: +/-20% PreAnes Value Consciousness: Fully Awake Oxygen Saturation: > 92% On Room Air Post Anesthesia Score: 10 Discharge Sedation Level of Care: Fast Track Phase II Post Sedation Plan On clinical assessment, the patient appears to have tolerated the sedation without complications. Patient is recovering as anticipated. Patient will continue to be monitored by nursing and may be discharged when sedation discharge criteria are met per below protocol. Upon Completions of procedure up to 15 minutes continue every 5 minute vital signs and the P.A.R. score; then discharge to a Phase I or Fast Track to Phase II per the following guidelines: * Discharge Patient to appropriate Phase II area if PAR is 8 or greater or return to pre- procedure baseline. The post - procedure orders will be as directed. * If PAR score is less than 8 or not return to pre-procedure baseline then patient will follow Phase I monitoring till PAR is reached for Phase II. The Phase I may be done in procedure room or may call to secure a Phase I area. * If naloxone or flumazenil are used for reversal, hold in Phase I for continued monitoring from when last reversal dose was given for a minimum of 60 minutes or longer pending the nurse and/or physician discretion of patient condition before discharge to Phase II. Please call the Sedation Physician to re-evaluate and complete post-note for discharge to Phase II area. Do NOT discharge from procedure sedation or Phase 1 until post- sedation evaluation note is complete by procedure /sedation MD Sedation Discharge Instructions to be given to the patient at discharge to home.
[2021-04-19] MEDS ORDERED: SODIUM CHLORIDE 0.9% 1000ML 1,000 ML IV SCH (16:45)
--- NOTE | 2021-04-19 16:53 | Cardiac Catheterization ---
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 fib) Lesion Segment Name: SVG to D2 Culprit Artery: Yes Stenosis Prior to Rx (%): 95 Chronic Total Occlusion: No IVUS: No FFR: No Pre-Procedure JOE Flow: 2 Previously Treated Lesion: Timeframe: greater than 2 years Treated with Stent: Yes In-Stent Restenosis: Yes Stent Type: KALEN Yes Lesion Complexity: High/C Lesion Length (mm): 12 Thrombus Present: Yes Bifurcation Lesion: No Guidewire Across Lesion: Stenosis Post-Procedure (%): 0 Post-Procedure JOE Flow: 3 Devices(s) Deployed: Yes Yes Intraprocedure Events Significant Disection: No Perforation: No Cardiac Cath Procedure Full Procedure Date April 19, 2021 Pre-Procedure Diagnosis Pre-Procedure Diagnosis: Angina and Arrhythmia AUC Score AUC Score: 8 Post-Procedure Diagnosis Post-Procedure Diagnosis: Severe CAD and Successful PCI Procedure(s) Performed Procedure(s) Performed: Coronary Angiography, Drug Eluting Stent and Bypass Graft Angiography Rubber Goods Repairer Corbin Persaud MD Rfid Specialist(s) Jonathan Estimated Blood Loss Estimated Blood Loss: 25 Medication(s) Medication(s): Clopidogrel, Fentanyl, Heparin, Lidocaine 1%, Nicardipine, Nitroglycerin and Versed Summary of Findings Indication: Unstable angina, VF post ICD firing. History of complex CAD post CABG and numerous PCI Access: 6 Fr right radial artery Catheters: Diagnostic JR4 (RCA), MPA (SVG-PDA-OM), [place] (SVG to D2), [place] left 3.5 guide Findings: LM -known to be 100% occluded LADdistal segment fills retrograde via right to left collaterals from RV branch and left to left collaterals from D2. Circumflexnondominant, fills via collaterals from proximal RCA branches. RCA -dominant, medium caliber, 50% proximal/earlymid stenosis, mid RCA stents widely patent. Distal RCA occluded after RV branch. PDA and RPL branches fill via right to right collaterals. SVG to second [id number] to 60% stenosis and proximal aspect of graft, 95% in- stent restenosis in mid segment, 70% stenosis at anastomosis. Bifurcating D2 without significant disease. SVG to right [id number] occluded at origin SVG to mid LADknown to be occluded at origin. Previously stented 03/19/2013 SVG to small first diagonalknown to be occluded at origin VERDUZCO to LADknown to be occluded -- PCI -- Antithrombotic therapy: Heparin, clopidogrel Procedure: SVG to D2 cannulated with [place] left 3.5 guide Speech Language Pathology Assistant 50 wire passed across lesion into distal vessel With the aid of a telescope support catheter lesion predilated with 2.5 compliant balloon Dilated in-stent lesion stented with 3.5 x 15 mm [place] drug-eluting stent Stent post-dilated with 4.0 noncompliant balloon Residual 70% stenosis at anastomosis. Lesion dilated with 2.5 balloon Anastomotic lesion stented with 2.5 x 15 mm Umesh drug-eluting stent IC vasodilators administered for spasm Post procedure JOE 3 flow, stents well expanded with minimal residual stenosis and no apparent cardiac complications. Arterial Closure: TR band Summary: 1. Chronic severe [place] multivessel CAD 50% proximal RCA stenosis. Patent mid stents. 100% distal RCA occlusion. PDA/RPLB fill via right to right collaterals -Known 100% LMCA occlusion Distal LAD fills via left to left collaterals from D2 and right to left collaterals from RV branch Circumflex fills via right to left collaterals from proximal RCA branches 2. Severe bypass graft occlusive disease Acute 95% in-stent restenosis in mid SVG to D2. 70% at anastomosis. SVG-PDA-OM2 now occluded at origin VERDUZCO to LAD, SVG to D1, SVG to mid LAD all previously known to be occluded 3. Successful PCI of SVG to D2 with a KALEN (3.5 x 15 U[place]) to mid graft in-stent restenosis and a second KALEN (2.5 x 15 Umesh) across graft anastomosis. Recommendations: To PCU for continued monitoring Reloaded with clopidogrel 300 mg in Power Grader Operator Continue extended dual antiplatelet therapy Consult cardiac Rehab Hemodynamics Rest Ao:: 91/61/93 Final Ao: 105/60/78 LV: Recommendations Recommendations: PCI without planned CABG Specimens Specimens: None Radiation Exposure (mGy) 2058 Contrast (mls) 135 Fluids (cc crystalloids) Fluids (cc crystalloids): 520 Drains Drains: None Anesthesia Moderate [id number] Procedural Complication(s) None Disposition PCU I attest to the content of the Intraoperative Record and any orders documented therein. Any exceptions are noted below. [facility] Card Cath Procedure Codes Cardiac Catheterization Procedure 1: Cardiovascular Cath Procedures: 14231 Coronaries and Grafts/IM (venous & atrial) & RHC Moderate Sedation Procedure 1: Sedation/Anesthesia: 99676 Mod Sedation by the same physician;Init15 Min Child Age 5 & Up Procedure 2: Sedation/Anesthesia: 94266 Mod Sedation by the same physician; Ea [id number] Minutes Stenting Procedure 1: Cardiovascular Stent Procedures: 49675 Perc tranluminal revascularization of or throughout CABG PG Care Time/CCT Total # of Minutes Spent Total Time Spent with Patient: Total time spent is greater than 50% in coordination of care (as documented) at patient's floor/unit and/or counseling patient:
[2021-04-19] MEDS ORDERED: NITROGLYCERIN SL 0.4 MG/TAB TAB SL PRN (17:04)
[2021-04-19] MEDS ORDERED: ACETAMINOPHEN 325 MG TAB PO PRN (17:04)
[2021-04-19] MEDS: AMIODARONE / D5W 360 MG/200 ML BAG IV SCH (18:46)
[2021-04-19] MEDS: METOPROLOL SUCC 25MG EXT REL TAB PO SCH (19:42)
[2021-04-20 05:52] LABS: Hematocrit (blood only) 41.5 % (42-52); Hemoglobin 13.3 g/dL (14.0-18.0); Mean Corpuscular Volume 93.7 fL (80-100); Mean Platelet Volume 10.6 fL (7.4-10.4); Platelet Count 171 K/uL (130-400); RDW Coefficient of Variation 13.8 % (11.5-14.5); RDW Standard Deviation 47.4 fL (36.4-46.3); Red Blood Count 4.43 M/uL (4.7-6.1); White Blood Count 5.72 K/uL (4.8-10.8)
[2021-04-20] MEDS: AMIODARONE / D5W 360 MG/200 ML BAG IV SCH (05:55)
[2021-04-20] MEDS: LEVOTHYROXINE SODIUM 50 MCG TABLET PO SCH (05:55)
[2021-04-20 06:30] LABS: BUN Creatinine Ratio 12.5 (10-20); Calcium 8.3 mg/dl (8.5-10.1); Creatinine Clr Calc Pharmacy 44.1 ml/min; Est GFR (Non-African American) 59.6 ml/min; Potassium 4.4 mmol/L (3.5-5.1)
[2021-04-20 07:43] LABS: Basophils # (auto) 0.02 K/uL (0-0.2); Basophils % (auto) 0.3 %; Eosinophils # (auto) 0.26 K/uL (0-0.5); Eosinophils % (auto) 4.5 %; Hematocrit (blood only) 41.8 % (42-52); Hemoglobin 13.7 g/dL (14.0-18.0); Immature Granulocytes # (auto) 0.01 K/uL (0.00-0.02); Immature Granulocytes % (auto) 0.2 %; Lymphocytes # (auto) 1.08 K/uL (1.2-3.4); Lymphocytes % (auto) 18.8 %; Mean Corpuscular Hemoglobin 30.2 pg (25-34); Mean Corpuscular Hgb Conc 32.8 g/dL (32-36); Mean Corpuscular Volume 92.3 fL (80-100); Mean Platelet Volume 10.5 fL (7.4-10.4); Monocytes % (auto) 6.9 %; Neutrophils # (auto) 3.99 K/uL (1.4-6.5); Neutrophils % (auto) 69.3 %; Platelet Count 173 K/uL (130-400); RDW Coefficient of Variation 13.8 % (11.5-14.5); RDW Standard Deviation 46.6 fL (36.4-46.3); Red Blood Count 4.53 M/uL (4.7-6.1); White Blood Count 5.76 K/uL (4.8-10.8)
[2021-04-20 08:07] LABS: Magnesium 2.4 mg/dl (1.8-2.4); Troponin I 0.67 ng/ml (0-0.045)
[2021-04-20] MEDS: ASPIRIN 81 MG ECTAB PO SCH (08:48)
[2021-04-20] MEDS: METOPROLOL SUCC 50MG EXT REL TAB PO SCH (08:48)
[2021-04-20] MEDS: ROSUVASTATIN CALCIUM 5 MG TAB PO SCH (08:48)
[2021-04-20] MEDS: amLODIPine BESYLATE 5 MG TAB PO SCH (08:49)
[2021-04-20] MEDS: FINASTERIDE 5 MG TAB PO SCH (08:49)
[2021-04-20] MEDS: ISOSORBIDE MONO EXTENDED REL 30 MG TABCR PO SCH (08:49)
[2021-04-20] MEDS: CLOPIDOGREL BISULFATE 75 MG TAB PO SCH (08:49)
[2021-04-20] MEDS: lisinopril 20 MG TAB PO SCH (08:50)
[2021-04-20] MEDS ORDERED: CLOPIDOGREL BISULFATE 75 MG TAB PO SCH (09:00)
[2021-04-20] MEDS ORDERED: ASPIRIN 81 MG ECTAB PO SCH (09:00)
[2021-04-20] MEDS ORDERED: AMIODARONE 200 MG TAB PO ONE (09:37)
--- NOTE | 2021-04-20 09:40 | Cardiology Progress Note ---
Date of Service April 20, 2021 Assessment & Plan (1) Unstable angina pectoris: (2) Ventricular tachycardia: (3) Cardiac defibrillator in place: Plan: s/p cardiac catheterization, complex PCI of SVG to D2 with a KALEN (3.5 x 15 [place]) to mid graft in-stent restenosis and a second KALEN (2.5 x 15 U[place]) across graft anastomosis. For clarification, this is the same graft for which the patient received intervention at [facility] in 2014, although it was labeled and the report is being a graft to the obtuse marginal territory, it appears to be a second diagonal branch. The patient has severe coronary heart disease, with patent stents in the mid RCA, 100% distal RCA occlusion, with collaterals supplying the PDA and right PLB. The patient's entire coronary circulation is dependent on the vein graft to D2 which was addressed with intervention today, and the proximal to mid RCA, with 100% occlusion of the distal RCA. Continue chronic ASA and clopidogrel. The patient's recent ventricular fibrillation event for which she received successful AICD discharge was likely due to ischemia, he is certainly at risk for further arrhythmia events despite the PCI as there is ongoing further substrate for ischemia. Although starting amiodarone may increase his defibrillation threshold, at present, feel it is prudent to continue amiodarone treatment. DC IV amiodarone, change to oral. LFTs and TSH normal. Continue metoprolol, amlodipine, Imdur, lisinopril. Add rosuvastatin, previously deemed to be intolerant of statins, but most recent trial was with simvastatin in 2015. OK to ambulate in hallway in order to assess for recurrent angina. 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 Admission and Anticipated Discharge Date Admission Date: April 19, 2021 Subjective Patient seen in follow-up. Denies chest discomfort or shortness of breath, sinus rhythm with atrial pacing in the 60s noted overnight last night, on amiodarone infusion. Review of Systems Review of Systems: All systems reviewed & are unremarkable except as noted in HPI & below Physical Exam Physical Exam: Temp Pulse Resp BP Pulse Ox 36.7 C 60 18 145/81 H 96 04/20/21 07:18 04/20/21 07:18 04/20/21 07:18 04/20/21 07:18 04/20/21 07:18 Constitutional: WD/WN, vitals as above Respiratory: normal respiratory effort, lungs clear to auscultation Cardiovascular: RRR, no murmur, no edema Gastrointestinal (Abdomen): normal bowel sounds, soft, nontender, no hepatosplenomegaly Skin: Right radial access clean dry and intact. No ecchymosis. No hematoma. Neurologic: PERRL, EOMI, accommodation nl, no face palsy, no dysarthria Results & Data ([facility]) Vital Signs (Past 12 Hours) Vital Signs Temp Pulse Resp BP Pulse Ox 04/20/21 07:18 36.7 C 60 18 145/81 H 96 04/20/21 04:03 36.6 C 61 20 120/46 L 96 04/19/21 23:18 36.5 C 80 17 123/76 95 Laboratory Results Cardiac Enzymes 04/19/21 04/19/21 04/20/21 Range/Units 17:16 Unknown 00:43 AST 17 (15-37) U/L Troponin I 0.052 H* 0.044 0.460 H* (0-0.045) ng/ml 04/20/21 Range/Units 07:23 AST (15-37) U/L Troponin I 0.670 H* (0-0.045) ng/ml Coagulation 04/19/21 Range/Units Unknown PT 11.1 (9.0-12.0) Seconds APTT 24.6 (21.0-31.0) Seconds Lipids 04/20/21 Range/Units 05:27 Triglycerides 101 (0-150) mg/dl Cholesterol 186 (0-200) mg/dl HDL Cholesterol 48 mg/dl Cholesterol/HDL Ratio 4 CBC 04/19/21 04/20/21 04/20/21 Range/Units Unknown 05:27 07:23 WBC 5.71 5.72 5.76 (4.8-10.8) K/uL RBC 4.86 4.43 L 4.53 L (4.7-6.1) M/uL Hgb 14.8 13.3 L 13.7 L (14.0-18.0) g/dL Hct 44.9 41.5 L 41.8 L (42-52) % Plt Count 181 171 173 (130-400) K/uL Neut # (Auto) 3.84 3.99 (1.4-6.5) K/uL Lymph # (Auto) 1.27 1.08 L (1.2-3.4) K/uL [place] # (Auto) 0.43 0.40 (0.11-0.59) K/uL Eos # (Auto) 0.15 0.26 (0-0.5) K/uL Baso # (Auto) 0.01 0.02 (0-0.2) K/uL Comprehensive Metabolic Panel 04/19/21 04/20/21 Range/Units Unknown 05:27 Sodium 142 139 (136-145) mmol/L Potassium 4.2 4.4 (3.5-5.1) mmol/L Chloride 110 H 110 H (98-107) mmol/L Carbon Dioxide 27 26 (21-32) mmol/L BUN 17 14 (7-18) mg/dl Creatinine 1.25 1.16 (0.6-1.4) mg/dl Glucose 86 85 (70-99) mg/dl Calcium 8.8 8.3 L (8.5-10.1) mg/dl AST 17 (15-37) U/L ALT 29 (12-78) Alkaline Phosphatase 60 (45-117) U/L Total Protein 7.7 (6.4-8.2) gm/dl Albumin 3.6 (3.4-5.0) gm/dl Intake and Output 04/19/21 04/20/21 04/20/21 22:59 06:59 14:59 Intake Total 800.000 / 1502.627 702.627 / 1502.627 59.285 / 59.285 Output Total 125 / 675 550 / 675 600 / 600 Balance 675.000 / 827.627 152.627 / 827.627 -540.715 / -540.715 Intake: IV 800.000 / 1002.627 202.627 / 1002.627 59.285 / 59.285 Amiodarone / D5w 150 mg In 100 100 / 100 ml @ 600 mls/hr IV NOW STA Rx#: [id number] Amiodarone / D5w 360 mg In 200 200.000 / 402.627 202.627 / 402.627 59.285 / 59.285 ml @ 0.5 MG/MIN 16.667 mls/hr IV .Q12H CECILIO Rx#:[id number] Sodium Chloride 0.9% 1000ML 1, 500 / 500 000 ml @ 100 mls/hr IV .Q10H CECILIO Rx#:[id number] Oral 500 / 500 Output: Urine 125 / 675 550 / 675 600 / 600 Other: Weight 69.6 kg 68.9 kg Weight Measurement Method Chair Scale Built in Bedscale
[2021-04-20] MEDS: AMIODARONE 200 MG TAB PO SCH (17:23)
--- NOTE | 2021-04-20 17:51 | Hospitalist Progress Note ---
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 Denied CP on the day of arrival. He is being managed for the following: #. CAD S/P Stents and CABG #. Ischemic cardiomyopathy, ICD in place #. Episodic VT In ER vitals stable, initial troponin negative. Admitting EKG without ST elevation but with mild new repolarization in the lateral precordial leads Cardiology-Dr. Jacobs had evaluated patient in ER and initial attempt to transfer to [facility] with patient's complex cardiac history and high risk, however transfer at this time was not available. Dr. Persaud-interventional cardiology took patient to Policy Director from ER 04/19 Status post cath on 04/20: Chronic severe [place] multivessel CAD, severe by vascular occlusive disease---> successful PCI with KALEN x2 (one to stent restenosis and another across graft anastomosis). c/w amiodarone and rosuvastatin Rx per cardiology. Previously deemed to be intolerant of statin as per outpatient notes. c/w home meds (amlod, imdur, metoprolol and lisinopril) Patient chest pain-free, no new issues. Cardiology following along, continue to monitor in telemetry. HTN Continue lisinopril, amlodipine H/O TIA Continue aspirin, plavix Hypothyroid Continue levothyroxine H/O Prostate Cancer, BPH Continue finasteride DVT Prophylaxis SCDs Full Code as per discussion with pt Follows with Dr Gale for routine care Admission and Anticipated Discharge Date Admission Date: April 19, 2021 Subjective Patient was sitting up in bed, on room air, NAD, no new acute events overnight. Patient is eating okay. Patient denies chest pain/palpitation/shortness of breath/fever/headache/dizziness/other review of symptoms. Physical Exam Physical Exam: GENERAL: Alert and oriented x3. NAD, on RA. HEENT: No pallor, no icterus. Pupils equal, round and reactive to light. Oral mucosa moist. NECK: No JVD, no neck masses. HEART: S1 and S2 heard. Regular rate and rhythm. Systolic murmur at Aortic area, no gallop. RESPIRATORY SYSTEM: Normal AP diameter. No accessory muscle use. No wheezing, no crackles. ABDOMEN: Soft, bowel sounds present, nontender, no distention. CENTRAL NERVOUS SYSTEM: No facial droop. Speech is clear. Obeys simple commands. Moves extremities. EXTREMITIES: No edema, no erythema seen. Results & Data Results & Data ([facility]) Vital Signs (Past 12 Hours) Vital Signs Temp Pulse Resp BP Pulse Ox 04/20/21 15:44 36.9 C 56 L 16 123/69 95 04/20/21 12:48 36.4 C L 60 16 106/66 93 04/20/21 07:18 36.7 C 60 18 145/81 H 96
[2021-04-20] MEDS: METOPROLOL SUCC 25MG EXT REL TAB PO SCH (20:54)
--- NOTE | 2021-04-20 21:07 | Electrocardiogram Report ---
Test Reason : Blood Pressure : / mmHG Vent. Rate : 072 BPM Atrial Rate : 072 BPM P-R Int : 222 ms QRS Dur : 118 ms QT Int : 424 ms P-R-T Axes : 052 045 160 degrees QTc Int : 464 ms Suspect unspecified pacemaker failure Sinus rhythm with 1st degree A-V block with occasional ventricular-paced complexes Occasional atrial pacing Premature atrial complexes and Premature ventricular complexes Incomplete left bundle block Abnormal ECG When compared with ECG of 19-JUL-2009 15:17, Ventricular and atrial paced complexes are now present T wave inversion more evident in Lateral leads Confirmed by Christian Lynch ([id number]) on 04/20/2021 9:07:02 PM Referred By: REFERRED SELF Confirmed By:Christian Lynch
--- NOTE | 2021-04-20 22:35 | Electrocardiogram Report ---
Test Reason : Blood Pressure : / mmHG Vent. Rate : 060 BPM Atrial Rate : 060 BPM P-R Int : 278 ms QRS Dur : 110 ms QT Int : 474 ms P-R-T Axes : 053 038 143 degrees QTc Int : 474 ms Poor data quality, interpretation may be adversely affected Atrial-paced rhythm with prolonged AV conduction Incomplete left bundle block Abnormal ECG When compared with ECG of 19-APR-2021 11:57, Ventricular pacing is no longer present Confirmed by Christian Lynch ([id number]) on 04/20/2021 10:34:58 PM Referred By: REFERRED SELF Confirmed By:Christian Lynch
[2021-04-21] MEDS: LEVOTHYROXINE SODIUM 50 MCG TABLET PO SCH (06:04)
--- NOTE | 2021-04-21 06:32 | Electrocardiogram Report ---
Test Reason : Blood Pressure : / mmHG Vent. Rate : 061 BPM Atrial Rate : 061 BPM P-R Int : 244 ms QRS Dur : 116 ms QT Int : 468 ms P-R-T Axes : 033 037 161 degrees QTc Int : 471 ms Sinus rhythm with 1st degree A-V block Incomplete left bundle block Abnormal ECG When compared with ECG of 20-APR-2021 05:58, Sinus rhythm has replaced Electronic atrial pacemaker Confirmed by Christian Lynch ([id number]) on 04/21/2021 6:32:29 AM Referred By: REFERRED SELF Confirmed By:Christian Lynch
[2021-04-21 07:45] LABS: Hematocrit (blood only) 42.5 % (42-52); Hemoglobin 13.9 g/dL (14.0-18.0); Mean Corpuscular Hemoglobin 30.2 pg (25-34); Mean Corpuscular Hgb Conc 32.7 g/dL (32-36); Mean Corpuscular Volume 92.4 fL (80-100); Mean Platelet Volume 10.8 fL (7.4-10.4); Platelet Count 175 K/uL (130-400); RDW Coefficient of Variation 13.6 % (11.5-14.5); RDW Standard Deviation 46.2 fL (36.4-46.3); White Blood Count 5.79 K/uL (4.8-10.8)
[2021-04-21 08:12] LABS: BUN Creatinine Ratio 12.6 (10-20); Calcium 8.6 mg/dl (8.5-10.1); Creatinine Clr Calc Pharmacy 39.2 ml/min; Est GFR (African American) 60.1 ml/min; Est GFR (Non-African American) 51.9 ml/min; Magnesium 2.4 mg/dl (1.8-2.4); Potassium 4.3 mmol/L (3.5-5.1)
[2021-04-21] MEDS: AMIODARONE 200 MG TAB PO SCH (08:23)
[2021-04-21] MEDS: amLODIPine BESYLATE 5 MG TAB PO SCH (08:38)
[2021-04-21] MEDS: CLOPIDOGREL BISULFATE 75 MG TAB PO SCH (08:39)
[2021-04-21] MEDS: ASPIRIN 81 MG ECTAB PO SCH (08:39)
[2021-04-21] MEDS: ISOSORBIDE MONO EXTENDED REL 30 MG TABCR PO SCH (08:40)
[2021-04-21] MEDS: FINASTERIDE 5 MG TAB PO SCH (08:40)
[2021-04-21] MEDS: lisinopril 20 MG TAB PO SCH (08:40)
[2021-04-21] MEDS: ROSUVASTATIN CALCIUM 5 MG TAB PO SCH (08:41)
[2021-04-21] MEDS: METOPROLOL SUCC 50MG EXT REL TAB PO SCH (08:41)
--- NOTE | 2021-04-21 10:11 | Cardiology Progress Note ---
Date of Service April 21, 2021 Assessment & Plan (1) Unstable angina pectoris: (2) Ventricular tachycardia: (3) Cardiac defibrillator in place: Plan: s/p cardiac catheterization, complex PCI of SVG to D2 with a KALEN (3.5 x 15 [place]) to mid graft in-stent restenosis and a second KALEN (2.5 x 15 [place]) across graft anastomosis. For clarification, this is the same graft for which the patient received intervention at [facility] in 2015, although it was labeled in the report is being a graft to the obtuse marginal territory,however it appears to be a second diagonal branch. The patient has severe coronary heart disease, with patent stents in the mid RCA, 100% distal RCA occlusion, with collaterals supplying the PDA and right PLB. 100% occusions of LAD, SVG to LAD, VERDUZCO to LAD, and [place] Cx. Continue chronic ASA and clopidogrel. The patient's recent ventricular fibrillation event for which she received successful AICD discharge was likely due to ischemia, he is certainly at risk for further arrhythmia events despite the PCI as there is ongoing further substrate for ischemia. Although starting amiodarone may increase his defibrillation threshold, at present, feel it is prudent to continue amiodarone treatment. Screeing LFTs and TSH normal. Continue metoprolol, amlodipine, Imdur, lisinopril. Add rosuvastatin, previously deemed to be intolerant of statins, but most recent trial was with simvastatin in 2014. 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 Stable for discharge: New medications, Rosuvastatin 5 mg daily, amiodarone 200 mg BID with meals, Metoprolol succinate 50 mg am, 25 mg pm. 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 I have contacted office , requested follow up visit with Lida Whittaker, or Dr Jacobs within 1-3 weeks. Admission and Anticipated Discharge Date Admission Date: April 19, 2021 Subjective Mr Hendrix is seen in cardiology follow up of unstable angina, AICD discharge. Pt feeling well s/p complex PCI two days ago. Telemetry reveals SR with atrial pacing at 60 bpm. Lateral T wave changes noted on presenting EKG have resolved. Review of Systems Review of Systems: All systems reviewed & are unremarkable except as noted in HPI & below Physical Exam Physical Exam: Temp Pulse Resp BP Pulse Ox 36.8 C 60 18 136/64 95 04/21/21 07:10 04/21/21 07:25 04/21/21 07:10 04/21/21 07:10 04/21/21 07:10 Constitutional: WD/WN, vitals as above Respiratory: normal respiratory effort, lungs clear to auscultation Cardiovascular: RRR, no murmur, no edema Gastrointestinal (Abdomen): normal bowel sounds, soft, nontender, no hepatosplenomegaly Neurologic: PERRL, EOMI, accommodation nl, no face palsy, no dysarthria Results & Data ([facility]) Vital Signs (Past 12 Hours) Vital Signs Temp Pulse Pulse Resp BP Pulse Ox 04/21/21 07:25 60 04/21/21 07:10 36.8 C 73 18 136/64 95 04/21/21 04:23 36.8 C 60 60 H 129/68 95 04/21/21 00:14 36.6 C 108 H 18 136/67 94 Laboratory Results Cardiac Enzymes 04/20/21 Range/Units 12:57 Troponin I 0.561 H* (0-0.045) ng/ml CBC 04/21/21 Range/Units 06:35 WBC 5.79 (4.8-10.8) K/uL RBC 4.60 L (4.7-6.1) M/uL Hgb 13.9 L (14.0-18.0) g/dL Hct 42.5 (42-52) % Plt Count 175 (130-400) K/uL Comprehensive Metabolic Panel 04/21/21 Range/Units 06:35 Sodium 139 (136-145) mmol/L Potassium 4.3 (3.5-5.1) mmol/L Chloride 108 H (98-107) mmol/L Carbon Dioxide 27 (21-32) mmol/L BUN 16 (7-18) mg/dl Creatinine 1.30 (0.6-1.4) mg/dl Glucose 83 (70-99) mg/dl Calcium 8.6 (8.5-10.1) mg/dl Intake and Output 04/20/21 04/21/21 04/21/21 22:59 06:59 14:59 Intake Total 250 / 1134.285 475 / 1134.285 Balance 250 / 533.285 475 / 533.285 Intake: Oral 250 / 1075 475 / 1075 Other: Weight 68.5 kg Weight Measurement Method Built in [facility]
--- NOTE | 2021-04-21 11:53 | Hospitalist Progress Note ---
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 Denied CP on the day of arrival. He is being managed for the following: #. CAD S/P Stents and CABG #. Ischemic cardiomyopathy, ICD in place #. Episodic VT In ER vitals stable, initial troponin negative. Admitting EKG without ST elevation but with mild new repolarization in the lateral precordial leads Cardiology-Dr. Jacobs had evaluated patient in ER and initial attempt to transfer to [facility] with patient's complex cardiac history and high risk, however transfer at this time was not available. Dr. Persaud-interventional cardiology took patient to Cubing Machine Tender from ER 04/19 Status post cath on 04/20:s/p cardiac catheterization, complex PCI of SVG to D2 with a KALEN (3.5 x 15 Umesh) to mid graft in-stent restenosis and a second KALEN (2.5 x 15 [place]) across graft anastomosis. The patient has severe coronary heart disease, with patent stents in the mid RCA, 100% distal RCA occlusion, with collaterals supplying the PDA and right PLB. 100% occusions of LAD, SVG to LAD, VERDUZCO to LAD, and [place] Cx. c/w amiodarone and rosuvastatin Rx per cardiology. Previously deemed to be intolerant of statin as per outpatient notes. c/w home meds (amlod, imdur, metoprolol and lisinopril) Appreciate cardiology input and recommendation Remains stable as of today and will be sent home this afternoon He will have follow-up with the ultra sound technician as an outpatient within 1 to 3 weeks HTN Continue lisinopril, amlodipine Blood pressure remains stable H/O TIA Continue aspirin, plavix Hypothyroid Continue levothyroxine H/O Prostate Cancer, BPH Continue finasteride DVT Prophylaxis SCDs Full Code as per discussion with pt Admission and Anticipated Discharge Date Admission Date: April 19, 2021 Subjective 04/21/2021 The patient was seen and examined in telemetry unit He was admitted with unstable angina and ventricular tachycardia with status post ICD implantation He underwent cardiac cath and has been feeling much better since then Denies any more cardiac symptoms and no more arrhythmias in the telemetry unit Review of Systems Review of Systems: All systems reviewed and are unremarkable except as noted below Cardiovascular: Additional Comments: No chest pain, palpitation or shortness of breath Physical Exam Physical Exam: Lying in bed comfortably Constitutional: average body habitus; not ill appearing Eyes: PERRL, conjunctivae normal, anicteric sclerae ENMT: external ear and nose normal, oropharynx normal Neck: trachea midline, no thyromegaly Respiratory: no respiratory distress Auscultation: lungs clear to auscultation bilaterally Cardiovascular: Rate/Rhythm: regular rate and regular rhythm; not tachycardic Heart Sounds: normal S1 and normal S2; no murmur Extremities: no edema Gastrointestinal (Abdomen): Inspection/Auscultation: normal bowel sounds; abdomen not distended Percussion/Palpation: abdomen soft; abdomen nontender Musculoskeletal: No acute arthritis in any joint Neurologic: Alert, awake and oriented x3. No focal sensory or motor deficit appreciated Lymphatic: no cervical or axillary lymphadenopathy Results & Data Results & Data ([facility]) Vital Signs (Past 12 Hours) Vital Signs Temp Pulse Pulse Resp BP BP Pulse Ox 04/21/21 11:08 36.6 C 60 19 110/67 96 04/21/21 07:25 60 04/21/21 07:10 36.8 C 73 18 136/64 95 04/21/21 04:23 36.8 C 60 60 H 129/68 95 04/21/21 00:14 36.6 C 108 H 18 136/67 94 Laboratory Results Short CBC 04/21/21 Range/Units 06:35 WBC 5.79 (4.8-10.8) K/uL Hgb 13.9 L (14.0-18.0) g/dL Hct 42.5 (42-52) % Plt Count 175 (130-400) K/uL BMP 04/21/21 06:35 Sodium 139 Potassium 4.3 Chloride 108 H Carbon Dioxide 27 BUN 16 Creatinine 1.30 Glucose 83 Calcium 8.6 Cardiac Enzymes 04/20/21 Range/Units 12:57 Troponin I 0.561 H* (0-0.045) ng/ml Medications Administered Current Inpatient Medications Acetaminophen (Acetaminophen 325 Mg Tab) 650 mg PO Q4H PRN PRN Reason: Pain or Fever Stop: 05/19/21 17:03 Amiodarone HCl ([facility] 200 Mg Tab) [facility] Stop: 05/20/21 16:59 Last Admin: 04/21/21 08:23 Dose: 200 mg Documented by: Amlodipine Besylate (Amlodipine Besylate 5 Mg Tab) 5 mg PO [facility] Stop: 05/20/21 08:59 Last Admin: 04/21/21 08:38 Dose: 5 mg Documented by: Aspirin (Aspirin 81 Mg Ectab) 81 mg PO [facility] Stop: 05/20/21 08:59 Last Admin: 04/21/21 08:39 Dose: 81 mg Documented by: Clopidogrel Bisulfate (Clopidogrel Bisulfate 75 Mg Tab) 75 mg PO [facility] Stop: 05/20/21 08:59 Last Admin: 04/21/21 08:39 Dose: 75 mg Documented by: Finasteride (Finasteride 5 Mg Tab) 5 mg PO [facility] Stop: 05/20/21 08:59 Last Admin: 04/21/21 08:40 Dose: 5 mg Documented by: Isosorbide Mononitrate (Isosorbide [place] Extended Rel 30 Mg Tabcr) 30 mg PO [facility] Stop: 05/20/21 08:59 Last Admin: 04/21/21 08:40 Dose: 30 mg Documented by: Levothyroxine Sodium (Levothyroxine Sodium 50 Mcg Tablet) [facility] Stop: 05/20/21 06:29 Last Admin: 04/21/21 06:04 Dose: 50 mcg Documented by: Lisinopril (Lisinopril 20 Mg Tab) 20 mg PO [facility] Stop: 05/20/21 08:59 Last Admin: 04/21/21 08:40 Dose: 20 mg Documented by: Metoprolol Succinate (Metoprolol Succ 50mg Ext Rel Tab) 50 mg PO [facility] Stop: 05/20/21 08:59 Last Admin: 04/21/21 08:41 Dose: 50 mg Documented by: Metoprolol Succinate (Metoprolol Succ 25mg Ext Rel Tab) 25 mg PO QPM [facility] Stop: 05/19/21 20:59 Last Admin: 04/20/21 20:54 Dose: 25 mg Documented by: Nitroglycerin (Nitroglycerin Sl 0.4 Mg/Tab Tab) 0.4 mg SL UD PRN PRN Reason: Chest Pain Stop: 05/19/21 17:03 Rosuvastatin Calcium (Rosuvastatin Calcium 5 Mg Tab) 5 mg PO [facility] Stop: 05/20/21 08:59 Last Admin: 04/21/21 08:41 Dose: 5 mg Documented by:
--- NOTE | 2021-04-21 15:07 | Electrocardiogram Report ---
Test Reason : Blood Pressure : / mmHG Vent. Rate : 062 BPM Atrial Rate : 062 BPM P-R Int : 256 ms QRS Dur : 140 ms QT Int : 492 ms P-R-T Axes : 047 -28 110 degrees QTc Int : 499 ms AV dual-paced rhythm with prolonged AV conduction with occasional ventricular-paced complexes Abnormal ECG When compared with ECG of 20-APR-2021 14:13, Electronic ventricular pacemaker has replaced Sinus rhythm Confirmed by Miky Rodriguez ([id number]) on 04/21/2021 3:07:04 PM Referred By: REFERRED SELF Confirmed By:Miky Rodriguez
--- NOTE | 2021-04-22 08:11 | Discharge Summary ---
Date of Service April 22, 2021 Admission HPI Per Admitting Provider Patient is 80-year-old male with PMH complex cardiac history including unstable angina, ischemic cardiomyopathy, s/p ICD, history of cardiac arrest, CAD s/p stents and CABG, TIA, CKD III, HTN, HLD, prostate cancer, BPH presented to ER with complaint of episode of chest pain yesterday with firing of his ICD. Patient reports was working yesterday using heavy equipment and when he had onset of right chest pain that radiated to right side of jaw. He reports he felt short of breath. He states he took 1 nitro and within 30 minutes chest pain resolved. He does report that had firing of his ICD yesterday and after that he felt dizzy. Patient denies any further chest pain or any recurrent ICD firings. He states "I feel fine right now". Cardiology-Dr. Jacobs had evaluated patient in ER and initial attempt to transfer to [facility] with patient's complex cardiac history and high risk, however transfer at this time was not available. Dr. Persaud-interventional cardiology took patient to Special Education Classroom Aide from ER. Denies fever/chills, diaphoresis, N/V/D/C, QUINTERO, dizziness, syncope, vision changes, neck pain, cough, sore throat, choking, otalgia, rhinorrhea, abdominal pain, paresthesias, weakness, extremity weakness, extremity edema, rashes, urinary symptoms. Admission Exam Per Admitting Provider Physical Exam: General: no distress, WDWN Head: normocephalic, atraumatic Eyes: conjunctiva non-injected, anicteric ENT: normal inspection external ears, nose, mucous membranes moist Neck: supple, trachea midline Lungs: clear, no respiratory distress, no wheezing/rhonchi/rales CV: RRR, no pretibial edema Abd: normal BS, soft, non-tender Ext: no cyanosis, no calf tenderness Neuro: A&O x 3, no focal deficits noted, normal affect Skin: warm, dry Principal Diagnosis Unstable angina pectoris, ventricular tachycardia, ischemic cardiomyopathy with ICD in place, status post cardiac cath Discharge Exam Lying in bed comfortably Constitutional average body habitus; not ill appearing Eyes PERRL, conjunctivae normal, anicteric sclerae ENMT external ear and nose normal, oropharynx normal Neck trachea midline, no thyromegaly Respiratory no respiratory distress Auscultation: lungs clear to auscultation bilaterally Cardiovascular Rate/Rhythm: regular rate and regular rhythm; not tachycardic Heart Sounds: normal S1 and normal S2; no murmur Extremities: no edema Gastrointestinal (Abdomen) Inspection/Auscultation: normal bowel sounds; abdomen not distended Percussion/Palpation: abdomen soft; abdomen nontender Lymphatic no cervical or axillary lymphadenopathy Discharge Data Allergies Allergy/AdvReac Type Severity Reaction Status Date / Time pantoprazole [From Protonix] Allergy Unknown Hives Verified 11/20/19 11:36 sucralfate Allergy Unknown Hives Verified 11/20/19 11:36 Consultations 04/19/21 12:15 ED Decision to Admit Stat 04/19/21 12:22 Consult Cardiology Stat 04/19/21 16:39 Consult Cardiac Rehabilitation Routine 04/19/21 17:04 Consult Cardiology Routine Procedures Performed Operation Date: 04/19/21 14:00 Actual Procedures s Cineradiography w/Routine Exam - Harjinder Persaud MD p Cath, Coronaries ONLY (no LV) - Harjinder Persaud MD s Drug Eluting Stent Bypass GR - Harjinder Persaud MD Ordered Studies 04/19/21 13:53 CL Cath Imgs for PACS use only Stat 04/19/21 13:54 CL Cath Imgs for PACS use only Stat Hospital Course (1) Unstable angina pectoris: (2) Ventricular tachycardia: (3) ICD (implantable cardioverter-defibrillator) discharge: 80-year-old male with PMH of complex cardiac history including unstable angina, ischemic cardiomyopathy, s/p ICD, history of cardiac arrest, CAD s/p stents and CABG, TIA, CKD III, HTN, HLD, prostate cancer, BPH presented to ER with 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 Denied CP on the day of arrival. He is being managed for the following: #. CAD S/P Stents and CABG #. Ischemic cardiomyopathy, ICD in place #. Episodic VT In ER vitals stable, initial troponin negative. Admitting EKG without ST elevation but with mild new repolarization in the lateral precordial leads Cardiology-Dr. Jacobs had evaluated patient in ER and initial attempt to transfer to [facility] with patient's complex cardiac history and high risk, however transfer at this time was not available. Dr. Persaud-interventional cardiology took patient to [employer] Education Classroom Aide from ER 04/19 Status post cath on 04/20:s/p cardiac catheterization, complex PCI of SVG to D2 with a KALEN (3.5 x 15 [place]) to mid graft in-stent restenosis and a second KALEN (2.5 x 15 [place]) across graft anastomosis. The patient has severe coronary heart disease, with patent stents in the mid RCA, 100% distal RCA occlusion, with collaterals supplying the PDA and right PLB. 100% occusions of LAD, SVG to LAD, VERDUZCO to LAD, and [place] Cx. c/w amiodarone and rosuvastatin Rx per cardiology. Previously deemed to be intolerant of statin as per outpatient notes. c/w home meds (amlod, imdur, metoprolol and lisinopril) Appreciate cardiology input and recommendation Remains stable as of today and will be sent home this afternoon He will have follow-up with the ctc operator as an outpatient within 1 to 3 weeks HTN Continue lisinopril, amlodipine Blood pressure remains stable H/O TIA Continue aspirin, plavix Hypothyroid Continue levothyroxine H/O Prostate Cancer, BPH Continue finasteride DVT Prophylaxis SCDs Full Code as per discussion with pt Total Time Total Time Spent Total Time Spent (In Minutes): 35 minutes Discharge Plan Discharge Items Patient Disposition: Home - Self-Care Reason For Visit: CHECK DEFIBILATOR/ERLINDA OFF YESTERDAY Discharge Diagnosis: Unstable angina pectoris, ventricular tachycardia, ischemic cardiomyopathy with ICD in place, status post cardiac cath Condition on Discharge: Fair Activity: Resume your previous activity Non-emergency contact: Primary Care Provider Call non-emergency contact if: you have any medication questions and your symptoms worsen Follow-up/Referrals: Vee Beckwith PA-C [Physician Garbage Truck Dispatcher] - (Date & Time 05/11/2021 3:00 PM Provider Vee Beckwith PA-C Department Cardiology, [facility] ) Roslyn Gale DO [Outside Practitioners] - (Date & Time 04/26/2021 1:40 PM Provider Roslyn Gale DO Department [facility] ) Diet: Heart Healthy Addtl Attending Provider Instructions: Please take precautions to avoid fall Take your medications as advised You should get the Covid vaccine as an outpatient ACTIVITY RECOMMENDATIONS: Excess manipulation of the wrist should be avoided for the next 24-48 hours. * No lifting over 2 pounds (approximately a 1/2 gallon of milk) with the utilized arm for 24 hours. * No strenuous activity such as bowling or tennis for 3 days. * Keep the site of the procedure covered with a bandage for 24 hours. *You may shower the day after the procedure. Do not take a tub bath or submerge the puncture site in water for the next 3 days. *Do not operate any motorized equipment for 3 days. SPECIAL CARE INSTRUCTIONS: The site may be slightly bruised and sore following your procedure. Should any of the following occur, contact the Dr. who performed your procedure. 1. Redness/inflammation, swelling, chills, or fever, or colored drainage at procedure site within 3-7 days after your procedure. 2. Coldness, discoloration, ongoing numbness, severe pain, or swelling. Expect mild tingling of hand and tenderness at the puncture site for up to three days. If this persists beyond three days, or other symptoms develop, notify the Dr. who performed y our procedure. BLEEDING: If the procedure site on your wrist begins to bleed, do not panic 1. Place 1 or 2 fingers firmly just slightly above the insertion site to stop the bleeding. You may be able to feel your pulse as you hold pressure. 2. Lift your finger after 5 minutes to see if the bleeding has stopped. 3. Once the bleeding has stopped, gently wipe the wrist area clean with a bandage. * If the bleeding from your wrist does not stop after 10 minutes, or if there is a large amount of bleeding or spurting, call 911 (do not drive yourself to the hospital). SKIN IRRITATION: * You may experience some redness and/or swelling in the area where radiation was administered. If any skin irritation occurs, please contact your family physician. FOLLOW UP VISIT: Keep any scheduled doctor appointments. Pending Studies at Discharge: No Stand-Alone Forms: My [facility] [employer], Smoking Cessation Medications and DC Order Prescriptions: New amiodarone 200 mg Tablet 200 mg PO BIDM 30 Days Qty: 60 RF: 0 rosuvastatin [Crestor] 5 mg Tablet 5 mg PO QAM 30 Days Qty: 30 RF: 0 Continued lisinopril 20 mg Tablet 20 mg PO QAM Qty: 0 RF: 0 amlodipine 5 mg Tablet 5 mg PO QAM Qty: 0 RF: 0 levothyroxine 50 mcg Tablet 50 mcg PO QAM Qty: 0 RF: 0 isosorbide mononitrate 30 mg Tablet Extended Release 24 Hr 30 mg PO QAM RF: 0 clopidogrel [Plavix] 75 mg Tablet 75 mg PO QAM RF: 0 metoprolol succinate 50 mg Tablet Extended Release 24 Hr 50 mg PO QAM RF: 0 finasteride 5 mg Tablet 5 mg PO QAM RF: 0 aspirin [Aspirin Low Dose] 81 mg Tablet,Delayed Release (Dr/Ec) 81 mg PO QAM RF: 0 nitroglycerin [Nitrostat] 0.4 mg Tablet, Sublingual 1 dose Sublingual UD PRN (Reason: Chest Pain) RF: 0 metoprolol succinate 25 mg Tablet Extended Release 24 Hr 25 mg PO QPM RF: 0 zoster vaccine live (PF) 1 ea IM Q2M RF: 0 Discharge Orders: Discharge Order (Routine); Ordered 04/21/21 Ordered By: Giovanna Ruiz/Other Patient Handouts: Eating Heart-Healthy Foods Admission Data Admit Date/Time: 04/19/21 14:05 Attending Provider: Giovanna Villanueva Admit Provider: Jesse Allison Primary Care Provider: Arpit Thurston Other Providers: Ken Jacobs ; Jesse Allison ; Alisha Son Other Interventions: Discharge Summary Assessment (RN) Last Done: 04/21/21 13:27
== END 2021-04-21 14:00 | disposition home or self-care (01) | DRG 246 ==
LOC: ED 11:20 → SUATTDRO 14:05 → EDINP 14:05 → 2S 17:00
PROC: CLB.CCO (2021-04-19 14:00)

== ENCOUNTER 2021-12-31 22:32 | Observation (INO) ==
[2021-12-31 22:57] LABS: Basophils # (auto) 0.05 K/uL (0-0.2); Basophils % (auto) 0.8 %; Eosinophils # (auto) 0.36 K/uL (0-0.50); Eosinophils % (auto) 5.4 %; Hematocrit (blood only) 44.2 % (40.1-51.0); Hemoglobin 14.4 g/dl (14.0-18.0); Immature Granulocytes # (auto) 0.02 K/uL (0.00-0.02); Immature Granulocytes % (auto) 0.3 %; Lymphocytes # (auto) 1.53 K/uL (1.2-3.4); Lymphocytes % (auto) 23.1 %; Mean Corpuscular Hemoglobin 29.8 pg (25.0-34.0); Mean Corpuscular Hgb Conc 32.6 g/dL (32.0-36.0); Mean Corpuscular Volume 91.5 fL (80.0-100.0); Mean Platelet Volume 10.2 fL (9.4-12.4); Monocytes # (auto) 0.66 K/uL (0.24-0.82); Neutrophils # (auto) 4.01 K/uL (1.4-6.5); Neutrophils % (auto) 60.4 %; Platelet Count 199 K/uL (130-400); RDW Coefficient of Variation 13.9 % (11.5-14.5); Red Blood Count 4.83 M/uL (4.63-6.08); White Blood Count 6.63 K/ul (4.8-10.8)
[2021-12-31 23:20] LABS: INR 1.1 (0.9-1.1); Partial Thromboplastin Ratio 0.9; Partial Thromboplastin Time 25.4 Seconds (21.0-31.0); Prothrombin Time 11.5 Seconds (9.0-12.0)
[2021-12-31 23:25] LABS: Alanine Aminotransferase 26 U/L (7-52); Albumin Globulin Ratio 1.3 (0.9-2); Albumin Level 4.3 gm/dl (3.4-5.0); Alkaline Phosphatase 72 U/L (34-104); Anion Gap 7 (3-11); Aspartate Aminotransferase 23 U/L (13-39); BUN Creatinine Ratio 16.3 (10-20); Bilirubin,Total 0.7 mg/dl (0.2-1.0); Blood Urea Nitrogen 20 mg/dl (6-23); Carbon Dioxide 25 mmol/L (21-32); Chloride 105 mmol/L (98-107); Est GFR (African American) 63.9 ml/min; Est GFR (Non-African American) 55.1 ml/min; Globulin 3.2 gm/dl (2.5-4.0); Glucose 98 mg/dl (70-99(Fasting)); Potassium 4.1 mmol/L (3.5-5.1); Sodium 137 mmol/L (136-145); Total Protein 7.5 gm/dl (6.0-8.3)
[2021-12-31 23:26] LABS: Troponin I High Sensitivity 11.4 pg/ml (0-20)
--- NOTE | 2021-12-31 23:38 | Emergency Department Note ---
Impression & Plan Chest pain ADMIT ED Provider Note HPI: The patient is an 81-year-old gentleman with history of coronary artery disease, who presents emergency department with a chief complaint of chest pain. Patient states that around 6 PM he developed some chest pain in the left side of his chest that radiated to his back. Patient states he took some sublingual nitro and this did seem to help with his pain however it did later then return. Patient then presented to the emergency room for further assessment. On arrival the patient is hemodynamically stable, he is in no acute distress on my initial evaluation. Patient states his pain is currently mild in nature ROS: -Cardio: Chest pain *10 point review systems was conducted and is otherwise negative unless stated above *Outpatient medications and allergy history reviewed PE: General: Alert, NAD HEENT: Normocephalic, atraumatic Eyes: Extraocular eye movement is intact, no scleral erythema Pulmonary: Clear to auscultation bilaterally, no wheezing Cardio: Regular rate and rhythm GI: Abdomen is soft, nontender : No suprapubic tenderness MSK: No evidence of trauma or malformation of the extremities, no edema Skin: No evidence of rash Neuro: Alert, no focal deficits Psychiatric: Cooperative classroom monitor: - An order was placed for continuous cardiac monitoring - Patient was noted to be in paced rhythm with a rate of 64 EKG: Rate: 60 Rhythm: Paced rhythm Intervals: [place] interval 310 ms, QRS 144 ms, QTC [address] changes: No ST elevation Time: 2239 Medical Decision Making: Patient presented to the emergency department the chief complaint of left-sided chest pain, EKG does not show any acute ischemic changes, shows paced rhythm. Troponin is negative x1. Given the patient's complaint of radiation of his pain to the mid back area I did obtain CT angiography of the chest that does not show any evidence of pulmonary embolism, no evidence of aortic dissection. Patient states he already took a full dose of aspirin earlier today therefore this was not given in the ED. On my reassessment the patient states that his chest pain is improved, just very mild in nature. Given his history of coronary artery disease status post multiple stents and reported open heart surgery, I feel that he should be admitted for observation and trending of troponin, patient is in agreement to this. I discussed the above case with the on-call hospitalist, Dr. Thompson, and the patient was admitted in stable condition for further care. Diagnosis: 1. Chest pain, acute 2. History of coronary artery disease status post multiple stents Disposition: Admission Ezequiel Peña DO Emergency Medicine Past Med/Surg History Medical History (Updated 01/01/22 @ 02:20 by Ezequiel Peña DO) BPH (benign prostatic hyperplasia) CAD (coronary artery disease) CKD (chronic kidney disease) stage 3, GFR 30-59 ml/min GERD (gastroesophageal reflux disease) H/O cardiac arrest H/O myocardial ischemia HTN (hypertension) Hypothyroidism ICD (implantable cardioverter-defibrillator) in place PLACED 2012 @ [facility] LAST CHECKED VIA REMOTE 09/20/2017 Ischemic cardiomyopathy EF 30-35% Pacemaker PLACED 2012 LAST CHECKED VIA REMOTE 09/20/2017 Prostate cancer Dx 2011, surveillance only Stable angina pectoris Systolic CHF Surgical History Encounter for insertion of cardiac resynchronization therapy defibrillator H/O two vessel coronary artery bypass graft 1990 and 1999 History of appendectomy History of cardiac cath X6 STENTS (2012 & 2014 [facility]) UNSURE OF DATES -- WILL BRING STENT CARDS DOS History of tonsillectomy Family History (Updated 04/19/21 @ 17:19 by Carmen Finn PA-C) Other Coronary heart disease Social History Smoking Status: Never smoker Second Hand Exposure: No; Hx Alcohol Use: No Hx Substance Use: No Preferred Language: Danish Communication Ability: Effective Bag Worker Required: No Beliefs That Will Affect Care: None marital status: Unknown Current Living Situation: Alone Feels Safe at Home: Yes Assistive Devices: None Allergies Allergies Allergy/AdvReac Type Severity Reaction Status Date / Time pantoprazole [From Protonix] Allergy Unknown Hives Verified 01/01/22 01:04 sucralfate Allergy Unknown Hives Verified 01/01/22 01:04 Home Meds Home Medications Medication Instructions Recorded Confirmed lisinopril 20 mg tablet 20 mg PO QAM ##0 07/19/09 01/01/22 amlodipine 5 mg tablet 5 mg PO QAM ##0 08/15/11 01/01/22 levothyroxine 50 mcg tablet 50 mcg PO QAM ##0 08/15/11 01/01/22 aspirin 81 mg tablet,delayed 81 mg PO QAM 01/16/18 01/01/22 release (Thomas Low Dose Aspirin) clopidogrel 75 mg tablet (Plavix) 75 mg PO QAM 01/16/18 01/01/22 finasteride 5 mg tablet 5 mg PO QAM 01/16/18 01/01/22 isosorbide mononitrate 30 mg 30 mg PO QAM 01/16/18 01/01/22 tablet,extended release 24 hr metoprolol succinate 50 mg 50 mg PO QAM 01/16/18 01/01/22 tablet,extended release 24 hr nitroglycerin 0.4 mg sublingual 1 dose sublingual UD PRN Chest Pain 01/16/18 01/01/22 tablet (Nitrostat) metoprolol succinate 25 mg 25 mg PO QPM 04/19/21 01/01/22 tablet,extended release 24 hr amiodarone 200 mg tablet 200 mg PO DAILY 01/01/22 01/01/22 rosuvastatin 5 mg tablet 5 mg PO DAILY 01/01/22 01/01/22 Results & Data (ED) Vital Signs Vital Signs - 24 hr 12/31/21 22:35 12/31/21 23:00 12/31/21 23:53 Temperature 36.9 C Temperature Source Temporal Artery Scan Pulse Rate 60 60 60 Pulse Rate from SpO2 Sensor 60 60 Respiratory Rate 19 21 26 H Respiratory Effort / Characteristics Non-Labored Spontaneous Respiratory Depth Normal Respiratory Pattern Regular Blood Pressure 173/98 H 154/89 H Blood Pressure Mean 123 110 Pulse Oximetry 97 97 95 Oxygen Delivery Method Room Air Sepsis Recent Fever Within 48 Hours No Sepsis New/Unexplained Change in Mental Status N/A Sepsis Action Taken by Nursing No Action Required 01/01/22 00:00 01/01/22 00:30 01/01/22 01:01 Temperature Temperature Source Pulse Rate 60 60 60 Pulse Rate from SpO2 Sensor 60 60 61 Respiratory Rate 22 17 15 Respiratory Effort / Characteristics Respiratory Depth Respiratory Pattern Blood Pressure 146/88 H 137/85 135/80 Blood Pressure Mean 107 102 98 Pulse Oximetry 97 94 96 Oxygen Delivery Method Sepsis Recent Fever Within 48 Hours Sepsis New/Unexplained Change in Mental Status Sepsis Action Taken by Nursing 01/01/22 01:30 Temperature Temperature Source Pulse Rate 60 Pulse Rate from SpO2 Sensor 60 Respiratory Rate 18 Respiratory Effort / Characteristics Respiratory Depth Respiratory Pattern Blood Pressure 144/89 H Blood Pressure Mean 107 Pulse Oximetry 97 Oxygen Delivery Method Sepsis Recent Fever Within 48 Hours Sepsis New/Unexplained Change in Mental Status Sepsis Action Taken by Nursing Laboratory Data Result diagrams: 12/31/21 22:48 12/31/21 22:48 Lab Results 12/31/21 12/31/21 12/31/21 Range/Units 22:48 22:48 22:48 WBC 6.63 (4.8-10.8) K/ul RBC 4.83 (4.63-6.08) M/uL Hgb 14.4 (14.0-18.0) g/dl Hct 44.2 (40.1-51.0) % MCV 91.5 (80.0-100.0) fL MCH 29.8 (25.0-34.0) pg MCHC 32.6 (32.0-36.0) g/dL RDW Std Deviation 47.0 H (36.4-46.3) fL RDW Coeff of Ángel 13.9 (11.5-14.5) % Plt Count 199 (130-400) K/uL MPV 10.2 (9.4-12.4) fL Immature Gran % (Auto) 0.3 % Neut % (Auto) 60.4 % Lymph % (Auto) 23.1 % [place] % (Auto) 10.0 % Eos % (Auto) 5.4 % Baso % (Auto) 0.8 % Neut # (Auto) 4.01 (1.4-6.5) K/uL Lymph # (Auto) 1.53 (1.2-3.4) K/uL [place] # (Auto) 0.66 (0.24-0.82) K/uL Eos # (Auto) 0.36 (0-0.50) K/uL Baso # (Auto) 0.05 (0-0.2) K/uL Immature Gran # (Auto) 0.02 (0.00-0.02) K/uL PT 11.5 (9.0-12.0) Seconds INR 1.1 (0.9-1.1) APTT 25.4 (21.0-31.0) Seconds PTT Ratio 0.9 Sodium 137 (136-145) mmol/L Potassium 4.1 (3.5-5.1) mmol/L Chloride 105 (98-107) mmol/L Carbon Dioxide 25 (21-32) mmol/L Anion Gap 7 (3-11) BUN 20 (6-23) mg/dl Creatinine 1.23 (0.6-1.4) mg/dl Est Cr Clr Drug Dosing Not Reportable Est GFR ( Amer) 63.9 ml/min Est GFR (Non-Af Amer) 55.1 ml/min BUN/Creatinine Ratio 16.3 (10-20) Glucose 98 (70-99(Fasting)) mg/dl Calcium 9.0 (8.5-10.1) mg/dl Total Bilirubin 0.7 (0.2-1.0) mg/dl AST 23 (13-39) U/L ALT 26 (7-52) U/L Alkaline Phosphatase 72 (34-104) U/L Troponin I High Sens 11.4 (0-20) pg/ml Total Protein 7.5 (6.0-8.3) gm/dl Albumin 4.3 (3.4-5.0) gm/dl Globulin 3.2 (2.5-4.0) gm/dl Albumin/Globulin Ratio 1.3 (0.9-2) SARS-CoV-2, RNA, NAAT (NEGATIVE) 01/01/22 01/01/22 Range/Units 00:40 00:47 WBC (4.8-10.8) K/ul RBC (4.63-6.08) M/uL Hgb (14.0-18.0) g/dl Hct (40.1-51.0) % MCV (80.0-100.0) fL MCH (25.0-34.0) pg MCHC (32.0-36.0) g/dL RDW Std Deviation (36.4-46.3) fL RDW Coeff of Ángel (11.5-14.5) % Plt Count (130-400) K/uL MPV (9.4-12.4) fL Immature Gran % (Auto) % Neut % (Auto) % Lymph % (Auto) % [place] % (Auto) % Eos % (Auto) % Baso % (Auto) % Neut # (Auto) (1.4-6.5) K/uL Lymph # (Auto) (1.2-3.4) K/uL [place] # (Auto) (0.24-0.82) K/uL Eos # (Auto) (0-0.50) K/uL Baso # (Auto) (0-0.2) K/uL Immature Gran # (Auto) (0.00-0.02) K/uL PT (9.0-12.0) Seconds INR (0.9-1.1) APTT (21.0-31.0) Seconds PTT Ratio Sodium (136-145) mmol/L Potassium (3.5-5.1) mmol/L Chloride (98-107) mmol/L Carbon Dioxide (21-32) mmol/L Anion Gap (3-11) BUN (6-23) mg/dl Creatinine (0.6-1.4) mg/dl Est Cr Clr Drug Dosing Est GFR ( Amer) ml/min Est GFR (Non-Af Amer) ml/min BUN/Creatinine Ratio (10-20) Glucose (70-99(Fasting)) mg/dl Calcium (8.5-10.1) mg/dl Total Bilirubin (0.2-1.0) mg/dl AST (13-39) U/L ALT (7-52) U/L Alkaline Phosphatase (34-104) U/L Troponin I High Sens 10.3 (0-20) pg/ml Total Protein (6.0-8.3) gm/dl Albumin (3.4-5.0) gm/dl Globulin (2.5-4.0) gm/dl Albumin/Globulin Ratio (0.9-2) SARS-CoV-2, RNA, NAAT NEGATIVE (NEGATIVE) Administered Medications Discontinued Medications Ioversol (Optiray 300 500ml) 125 ml IV ONCE ONE Stop: 12/31/21 23:58 Last Admin: 12/31/21 23:57 Dose: 106 ml Documented By: ALEJO Discharge Plan Visit Data Chief Complaint: Chest Pain Stated Complaint: CHEST PAIN ED Provider: Ezequiel Peña Discharge Problem: Chest pain Patient Disposition: Admitted As Inpatient Forms Stand Alone Forms: My [facility] Prescriptions Prescriptions: No Action lisinopril 20 mg Tablet 20 mg PO QAM Qty: 0 amlodipine 5 mg Tablet 5 mg PO QAM Qty: 0 levothyroxine 50 mcg Tablet 50 mcg PO QAM Qty: 0 isosorbide mononitrate 30 mg Tablet Extended Release 24 Hr 30 mg PO QAM clopidogrel [Plavix] 75 mg Tablet 75 mg PO QAM metoprolol succinate 50 mg Tablet Extended Release 24 Hr 50 mg PO QAM finasteride 5 mg Tablet 5 mg PO QAM aspirin [Thomas Low Dose Aspirin] 81 mg Tablet,Delayed Release (Dr/Ec) 81 mg PO QAM nitroglycerin [Nitrostat] 0.4 mg Tablet, Sublingual 1 dose Sublingual UD PRN (Reason: Chest Pain) metoprolol succinate 25 mg Tablet Extended Release 24 Hr 25 mg PO QPM amiodarone 200 mg tablet 200 mg PO DAILY rosuvastatin 5 mg tablet 5 mg PO DAILY Referrals Referrals: Arpit Thurston MD [Outside Practitioners] -
[2021-12-31] MEDS ORDERED: OPTIRAY 300 500mL IV ONE (23:57)
[2022-01-01] MEDS ORDERED: ACETAMINOPHEN 325 MG TAB PO PRN (02:59)
[2022-01-01] MEDS ORDERED: NITROGLYCERIN SL 0.4 MG/TAB TAB SL PRN (02:59)
[2022-01-01 05:14] LABS: Basophils # (auto) 0.04 K/uL (0-0.2); Basophils % (auto) 0.7 %; Eosinophils # (auto) 0.27 K/uL (0-0.50); Eosinophils % (auto) 4.9 %; Hematocrit (blood only) 44.5 % (40.1-51.0); Hemoglobin 14.6 g/dl (14.0-18.0); Immature Granulocytes # (auto) 0.02 K/uL (0.00-0.02); Immature Granulocytes % (auto) 0.4 %; Lymphocytes % (auto) 16.2 %; Mean Corpuscular Hemoglobin 29.9 pg (25.0-34.0); Mean Corpuscular Hgb Conc 32.8 g/dL (32.0-36.0); Mean Platelet Volume 10.1 fL (9.4-12.4); Monocytes # (auto) 0.44 K/uL (0.24-0.82); Monocytes % (auto) 7.9 %; Neutrophils # (auto) 3.89 K/uL (1.4-6.5); Neutrophils % (auto) 69.9 %; Platelet Count 167 K/uL (130-400); RDW Coefficient of Variation 13.7 % (11.5-14.5); Red Blood Count 4.89 M/uL (4.63-6.08); White Blood Count 5.56 K/ul (4.8-10.8)
--- NOTE | 2022-01-01 05:49 | History and Physical Report ---
DATE OF ADMISSION: 01/01/2022. CHIEF COMPLAINT: Chest pain. HISTORY OF PRESENT ILLNESS: This is an 81-year-old male with past medical history significant for hypothyroidism, hyperlipidemia, history of chronic kidney disease stage III, history of CABG, history of multiple coronary interventions, most recently in 04/2021 with a drug-eluting stent to SVG, history of coronary bypass surgery in 1980; repeat in 1999, cardiac arrest x 2, dual chamber ICD placement, V-fib arrest, systolic CHF, GERD, BPH, presents with chest pain. The patient lives alone, ambulates without any support. The patient has some chest pains on and off since last evening, he took nitro, it seemed to help, but the pain seemed to come back , that is why he came back to the hospital. It is in the left lower chest, radiating to the back, mild in severity, aching pain, sometimes sharp pains. Currently, the pain only just feeling some soreness in that area, not associated with any nausea or sweating, dizziness or headaches. Currently, resting comfortably and hemodynamically stable. Denies any blurred visions, no earache, no runny nose, no sore throat, no cough, no fever, no chills. Appetite is okay. No difficulty swallowing. No nausea, no vomiting, no shortness of breath, no abdominal pain. Normal bowel and bladder movements. No swelling in the legs. ALLERGIES: PROTONIX AND SUCRALFATE. PAST MEDICAL HISTORY: As mentioned above. PAST SURGICAL HISTORY: CABG, cardiac angioplasty, DC cardioversion, ICD placement, laparoscopic cholecystectomy, appendectomy, tonsillectomy, removal of small bladder stone. MEDICATIONS: The patient is on amiodarone 200 mg p.o. daily, amlodipine 5 mg p.o. daily, aspirin 81 mg p.o. daily, Plavix 75 mg p.o. daily, finasteride 5 mg p.o. daily, isosorbide mononitrate 30 mg p.o. daily, levothyroxine 50 mcg p.o. daily, lisinopril 20 mg p.o. daily, metoprolol succinate 50 mg p.o. a.m., metoprolol succinate 25 mg p.o. p.m., Nitrostat sublingual p.r.n., rosuvastatin 5 mg p.o. daily. FAMILY HISTORY: Significant for brother has heart disorder, father has CVA; mother has lung cancer. SOCIAL HISTORY: , lives alone. No smoking, no alcohol, no drug use. REVIEW OF SYSTEMS: As per HPI. Rest of review of systems is negative. PHYSICAL EXAMINATION: GENERAL: The patient is old and frail, not in acute distress. VITAL SIGNS: Temperature 36.9, pulse 60, respiratory rate 20, blood pressure 146/88, oxygen 97% on room air. HEENT: Pupils equal, round and reactive to light. Oral mucosa moist. NECK: No JVD. No neck masses. CARDIOVASCULAR: S1 and S2 heard. Regular rate and rhythm. No murmur, no gallop. RESPIRATORY SYSTEM: Normal AP diameter. No accessory muscle use. No wheezing, no crackles. ABDOMEN: Soft. Bowel sounds present, nontender, no distention. CENTRAL NERVOUS SYSTEM: Cranial nerves II-XII grossly intact, nonfocal. EXTREMITIES: No edema, no erythema. LABORATORY DATA: WBC 6.6, hemoglobin 14.4, hematocrit 44.2, platelets 199. PT 11.5, INR 1.1, APTT 25.4. Sodium 137, potassium 4.1, chloride 105, bicarbonate 25, BUN 20, creatinine 1.2, serum glucose 98, calcium 9, total bilirubin 0.7, AST 23, ALT 26, alkaline phosphatase 72. Troponin I high sensitivity 10.3. SARS-CoV-2 rapid test negative. IMAGING: CT of the chest results are pending. Chest x-ray, no acute findings. EKG: Atrial paced rhythm with prolonged AV conduction, rate of 60. ASSESSMENT AND PLAN: An 81-year-old male with a significant cardiac history who presented with chest pain. 1. Chest pain: Rule out acute coronary syndrome. Initial workup is negative. will keep him n.p.o. Serial enzymes, echo. Consult cardiology in the a.m. for further recommendation. Monitor in U-NOTE. 2. History of coronary artery disease, status post coronary artery bypass graft x2 in 1980 and repeat in 1999. 3. History of cardiac arrest x2 and AICD placement: Continue his home medication of aspirin, Plavix, statin, Imdur, and metoprolol succinate. 4. History of chronic systolic congestive heart failure, EF of 30%: On metoprolol succinate and lisinopril, Imdur. Monitor for any volume overload. 5. History of ventricular fibrillation cardiac arrest: On amiodarone. 6. Hyperlipidemia: On statin. 7. Hypothyroidism: On Synthroid. 8. Deep venous thrombosis prophylaxis: Sequential compression devices for now. DISPOSITION: Observe in med tele. PT/OT prior to discharge. Social service to help with discharge planning. Level 1 full code. Job ID: [id number] MTDD
[2022-01-01 05:52] LABS: BUN Creatinine Ratio 15.6 (10-20); Calcium 8.6 mg/dl (8.5-10.1); Creatinine Clr Calc Pharmacy 46.8 ml/min; Est GFR (African American) 73.9 ml/min; Est GFR (Non-African American) 63.8 ml/min; Magnesium 2.2 mg/dl (1.7-2.4); Potassium 3.9 mmol/L (3.5-5.1)
[2022-01-01] MEDS: LEVOTHYROXINE SODIUM 50 MCG TABLET PO SCH (06:38)
[2022-01-01] MEDS: ROSUVASTATIN CALCIUM 5 MG TAB PO SCH (08:27)
[2022-01-01] MEDS: lisinopril 20 MG TAB PO SCH (08:27)
[2022-01-01] MEDS: ISOSORBIDE MONO EXTENDED REL 30 MG TABCR PO SCH (08:27)
[2022-01-01] MEDS: FINASTERIDE 5 MG TAB PO SCH (08:27)
--- NOTE | 2022-01-01 08:27 | CT Scan Report ---
CT angio chest PE protocol CLINICAL HISTORY: PE TECHNIQUE: Multidetector row helical CT of the chest was performed with angiographic protocol. Arias l and sagittal reformations were obtained. Coronal and sagittal MIPS were obtained from the axial charo a set and were submitted for review. Automated dose lowering techniques and/or adjustment according to patient size were utilized for this exam. CT DOSE: 255.44 mGy.cm Comparison: Comparison is made to chest radiograph 04/19/2021 and chest radiograph 12/31/2021 FINDINGS: Lungs and pleura: Atelectasis versus scarring is seen in the dependent portions of the lungs. Heart and pericardium: Cardiomegaly is seen with biatrial enlargement. Pacemaker defibrillator is no rito. Vessels: Postsurgical changes of coronary bypass are noted. Atherosclerotic changes are seen. No evid ence of pulmonary embolus is seen. Mediastinum and nicholas: Subcentimeter lymph nodes are seen. Chest wall and lower neck: Unremarkable. 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 Bones: Unremarkable. IMPRESSION: No evidence of pulmonary embolism or other acute abnormality. Redemonstration of cardiomegaly and pos tsurgical changes about the heart. ACT 112: Negative or not required by law. Electronically signed by: Candido Oswald M.D. 01/01/2022 8:26 AM
[2022-01-01] MEDS: ASPIRIN 81 MG ECTAB PO SCH (08:28)
[2022-01-01] MEDS: amLODIPine BESYLATE 5 MG TAB PO SCH (08:28)
[2022-01-01] MEDS: CLOPIDOGREL BISULFATE 75 MG TAB PO SCH (08:28)
[2022-01-01] MEDS: AMIODARONE 200 MG TAB PO SCH (08:28)
--- NOTE | 2022-01-01 08:30 | XRay Report ---
SINGLE VIEW CHEST CLINICAL HISTORY: Atypical chest pain. FINDINGS: An AP, portable, upright chest radiograph is compared to study dated 04/19/2021. The patient is status post midline sternotomy. A 2-lead cardiac AICD is unchanged in position and largely obscur es the left lower chest. The heart is enlarged noting atherosclerotic calcification of the thoracic a jose. The pulmonary vasculature is noncongested. There is elevation of the left hemidiaphragm with bi basilar scarring/atelectasis. No airspace consolidation or large pleural effusion is identified. No p neumothorax is seen. The skeletal structures are osteopenic. The bony thorax is grossly intact. IMPRESSION: 1. Cardiomegaly and AICD without radiographic evidence of congestive failure. 2. No airspace consolidation or large pleural effusion is identified. ACT 112: Negative or not required by law. Electronically signed by: Chuck Pacheco M.D. 01/01/2022 8:29 AM
[2022-01-01] MEDS ORDERED: METOPROLOL SUCC 50MG EXT REL TAB PO SCH (09:00)
--- NOTE | 2022-01-01 09:21 | Cardiology Consultation ---
Date of Consultation January 01, 2022 Assessment & Plan (1) Chest pain: (2) Ischemic cardiomyopathy: (3) CAD (coronary artery disease): (4) H/O cardiac arrest: (5) H/O two vessel coronary artery bypass graft: (6) Pacemaker: (7) ICD (implantable cardioverter-defibrillator) in place: (8) HTN (hypertension): Plan Medically complex 81-year-old male with a history of complex CAD and ischemic cardiomyopathy with pacemaker/ICD in place. Initially presented for concerns regarding atypical chest discomfort. Echocardiogram stable. High-sensitivity troponin negative. Questionable musculoskeletal component to his discomfort. Given his atypical presentation and negative HS troponin would be hesitant to send patient for cardiac catheterization. He also received contrast dye load for CT scan done in the ED yesterday (hx of CKD stage 3). We will attempt to optimize medications and observe overnight prior to more invasive measures. 1. Increase metoprolol succinate to 50 mg twice daily 2. Interrogate AICD- patient presented atypically during last ICD firing. Supervising Physician Co-Signing Physician Notes Patient was seen and examined personally, chart reviewed. 81-year-old male with complex ischemic heart disease with last coronary invention April 2021 after presenting following ICD discharge. Patient very physically active with extensive exertion on day prior to admission. Symptoms atypical for angina and initial cardiac enzymes negative for injury or infarct, echocardiogram unchanged. Plan as above to optimize medical regimen increase activity in hospital. Currently no indications proceeding to cardiac catheterization especially in light of recent contrast administration. If change in symptoms or worsening complaints observed would proceed History of Present Illness Reason for Consultation: Chest pain Requesting Physician: Marci Fregoso Attending Physician: Reese Rinaldi MD History of Present Illness 81-year-old medically complex male initially presented to the emergency department due to complaints of chest pain. Carries a history of complex CAD as described below under problem list. Notes last evening (Saturday) he was sitting resting and developed a dull aching chest discomfort on his left side/back. Took total of x3 nitro with slight relief in symptoms. He then developed an sharp discomfort across his sternum whe re he took a 4th nitro and called his son to bring him to the ED. Since presentation the intensity of his chest discomfort has improved, but not completely resolved. Describes it as "annoying". Denies any associated symptoms of worsening shortness of breath, dizziness, or nausea. 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 Denies any heavy lifting. No chest pain while working. Upon entrance into the room he was resting comfortably in bed. HOB flat. Noted ongoing dull chest discomfort. No shortness of breath, palpitations, dizziness, syncope or near syncope. No orthopnea, PND, or increased lower extremity edema. No fever, chills, cough, hematochezia, melena, or hemoptysis. Chest x-ray showed: No acute abnormalities, no evidence of CHF CTA of the chest: No evidence of PE EKG atrial paced, LBBB, 60 bpm Echo: LVEF 30 to 35% with wall motion abnormalities/scarring of the inferior and posterior wall consistent with ischemic cardiomyopathy, grade 2 diastolic dysfunction consistent with elevated left atrial pressure, moderate aortic sclerosis without stenosis. Similar compared to 04/2021 echo. High-sensitivity troponin: Negative, 11.4, 10.3, 10.0 Lab work unremarkable. COVID-negative PMH: Complex CAD, hx of multiple coronary interventions, Hx of CABG , 1981 with redo in 1999 Last PCI 04/2021 with x2 KALEN to SVG Hx of cardiac arrest x2 ~2009, s/p ICD Hx of Vfib arrest with rescue with ICD, 04/2021- atypical symptoms. Chronic systolic CHF, LVEF 30%, 04/2021 CKD stage 3 Allergies Allergy/AdvReac Type Severity Reaction Status Date / Time pantoprazole [From Protonix] Allergy Unknown Hives Verified 01/01/22 01:04 sucralfate Allergy Unknown Hives Verified 01/01/22 01:04 Home Medications Medication Instructions Recorded Confirmed Type lisinopril 20 mg tablet 20 mg PO QAM ##0 07/19/09 01/01/22 History amlodipine 5 mg tablet 5 mg PO QAM ##0 08/15/11 01/01/22 History levothyroxine 50 mcg tablet 50 mcg PO QAM ##0 08/15/11 01/01/22 History aspirin 81 mg tablet,delayed 81 mg PO QAM 01/16/18 01/01/22 History release (Thomas Low Dose Aspirin) clopidogrel 75 mg tablet (Plavix) 75 mg PO QAM 01/16/18 01/01/22 History finasteride 5 mg tablet 5 mg PO QAM 01/16/18 01/01/22 History isosorbide mononitrate 30 mg 30 mg PO QAM 01/16/18 01/01/22 History tablet,extended release 24 hr metoprolol succinate 50 mg 50 mg PO QAM 01/16/18 01/01/22 History tablet,extended release 24 hr nitroglycerin 0.4 mg sublingual 1 dose sublingual UD PRN Chest Pain 01/16/18 01/01/22 History tablet (Nitrostat) metoprolol succinate 25 mg 25 mg PO QPM 04/19/21 01/01/22 History tablet,extended release 24 hr amiodarone 200 mg tablet 200 mg PO DAILY 01/01/22 01/01/22 History rosuvastatin 5 mg tablet 5 mg PO DAILY 01/01/22 01/01/22 History Patient History Medical History (Updated 01/01/22 @ 10:26 by WILLOW Trujillo) BPH (benign prostatic hyperplasia) CAD (coronary artery disease) CKD (chronic kidney disease) stage 3, GFR 30-59 ml/min GERD (gastroesophageal reflux disease) H/O cardiac arrest H/O myocardial ischemia HTN (hypertension) Hypothyroidism ICD (implantable cardioverter-defibrillator) in place PLACED 2012 @ [facility] LAST CHECKED VIA REMOTE 09/20/2017 Ischemic cardiomyopathy EF 30-35% Pacemaker PLACED 2012 LAST CHECKED VIA REMOTE 09/20/2017 Prostate cancer Dx 2011, surveillance only Stable angina pectoris Systolic CHF Surgical History (Updated 01/01/22 @ 10:26 by WILLOW Trujillo) Encounter for insertion of cardiac resynchronization therapy defibrillator H/O two vessel coronary artery bypass graft 1990 and 1999 History of appendectomy History of cardiac cath X6 STENTS (2012 & 2014 [facility]) UNSURE OF DATES -- WILL BRING STENT CARDS DOS History of tonsillectomy Family History (Updated 04/19/21 @ 17:19 by Carmen Finn PA-C) Other Coronary heart disease Social History Smoking Status: Never smoker Second Hand Exposure: No; Hx Alcohol Use: No Hx Substance Use: No Preferred Language: Tongan Communication Ability: Effective Geophysicist Required: No Beliefs That Will Affect Care: None marital status: Unknown Current Living Situation: Alone Feels Safe at Home: Yes Safety Concerns: Feels Safe At This Time Assistive Devices: None Review of Systems Review of Systems: All systems reviewed & are unremarkable except as noted in HPI & below Physical Exam Constitutional: WD/WN, vitals as above no acute distress Eyes: PERRL, conjunctivae normal, anicteric sclerae Neck: normal visual inspection and trachea midline Respiratory: normal respiratory effort, lungs clear to auscultation no cough Cardiovascular: RRR, no murmur, no edema Heart Sounds: normal S1 and normal S2 Vessels: no JVD and no carotid bruit Chest (Breasts): Chest: + pacemaker (no signs of infection) Gastrointestinal (Abdomen): normal bowel sounds, soft, nontender, no hepatosplenomegaly Skin: no rashes, warm and dry Psychiatric: A+Ox3, euthymic affect Results & Data ([facility]) Vital Signs (Past 12 Hours) Vital Signs Temp Pulse Pulse Resp BP BP Pulse Ox 01/01/22 07:00 60 18 140/91 96 01/01/22 07:00 01/01/22 07:00 01/01/22 06:39 60 20 135/90 94 01/01/22 04:30 60 21 01/01/22 04:00 60 20 01/01/22 03:31 60 17 95 01/01/22 03:00 60 19 95 01/01/22 02:38 60 20 141/85 H 97 01/01/22 02:30 60 14 163/93 H 94 01/01/22 01:30 60 18 144/89 H 97 01/01/22 01:01 60 15 135/80 96 01/01/22 00:30 60 17 137/85 94 01/01/22 00:00 60 22 146/88 H 97 12/31/21 23:53 60 26 H 154/89 H 95 12/31/21 23:00 60 21 97 12/31/21 22:35 36.9 C 60 19 173/98 H 97 Pulse Ox O2 Del Method O2 Del Method 01/01/22 07:00 Room Air 01/01/22 07:00 96 Room Air 01/01/22 07:00 Room Air 01/01/22 06:39 Room Air 01/01/22 04:30 01/01/22 04:00 01/01/22 03:31 01/01/22 03:00 01/01/22 02:38 01/01/22 02:30 01/01/22 01:30 01/01/22 01:01 01/01/22 00:30 01/01/22 00:00 12/31/21 23:53 12/31/21 23:00 12/31/21 22:35 Room Air Laboratory Results Cardiac Enzymes 12/31/21 01/01/22 01/01/22 Range/Units 22:48 00:47 05:01 AST 23 (13-39) U/L Troponin I High Sens 11.4 10.3 10.0 (0-20) pg/ml Coagulation 12/31/21 Range/Units 22:48 PT 11.5 (9.0-12.0) Seconds APTT 25.4 (21.0-31.0) Seconds CBC 12/31/21 01/01/22 Range/Units 22:48 05:01 WBC 6.63 5.56 (4.8-10.8) K/ul RBC 4.83 4.89 (4.63-6.08) M/uL Hgb 14.4 14.6 (14.0-18.0) g/dl Hct 44.2 44.5 (40.1-51.0) % Plt Count 199 167 (130-400) K/uL Neut # (Auto) 4.01 3.89 (1.4-6.5) K/uL Lymph # (Auto) 1.53 0.90 L (1.2-3.4) K/uL [place] # (Auto) 0.66 0.44 (0.24-0.82) K/uL Eos # (Auto) 0.36 0.27 (0-0.50) K/uL Baso # (Auto) 0.05 0.04 (0-0.2) K/uL Comprehensive Metabolic Panel 12/31/21 01/01/22 Range/Units 22:48 05:01 Sodium 137 138 (136-145) mmol/L Potassium 4.1 3.9 (3.5-5.1) mmol/L Chloride 105 106 (98-107) mmol/L Carbon Dioxide 25 24 (21-32) mmol/L BUN 20 17 (6-23) mg/dl Creatinine 1.23 1.09 (0.6-1.4) mg/dl Glucose 98 84 (70-99(Fasting)) mg/dl Calcium 9.0 8.6 (8.5-10.1) mg/dl AST 23 (13-39) U/L ALT 26 (7-52) U/L Alkaline Phosphatase 72 (34-104) U/L Total Protein 7.5 (6.0-8.3) gm/dl Albumin 4.3 (3.4-5.0) gm/dl Intake and Output 12/31/21 01/01/22 01/01/22 22:59 06:59 14:59 Other: Weight 71.1 kg 71 kg Weight Measurement Method Chair [facility] (1) Chest pain Chest pain type: unspecified Qualified Code(s): R07.9 - Chest pain, unspecified
--- NOTE | 2022-01-01 12:34 | Electrocardiogram Report ---
Test Reason : Blood Pressure : / mmHG Vent. Rate : 060 BPM Atrial Rate : 060 BPM P-R Int : 310 ms QRS Dur : 144 ms QT Int : 496 ms P-R-T Axes : -11 007 199 degrees QTc Int : 496 ms Atrial-paced rhythm with prolonged AV conduction Left bundle branch block Abnormal ECG When compared with ECG of 21-APR-2021 06:04, Electronic atrial pacemaker has replaced Electronic ventricular pacemaker Confirmed by Arpit Rodriguez ([id number]) on 01/01/2022 12:33:51 PM Referred By: REFERRED SELF Confirmed By:Arpit Rodriguez
--- NOTE | 2022-01-01 18:35 | Communication Note ---
Date of Service: January 01, 2022 Seen and examined at bedside. Reviewed H and P note and cardio consult note. Reviewed labs and imaging. No CP since admission, feels fine. No other issues. Monitoring overnight for chest pain per cardio given his complex history. Already on DAPT, BB, imdur, statin, ACEI. Continue current management. His ICD was interrogated and is working appropriately with no events or issues noted per the forest technician who I spoke to. Review H and P note for details of presentation.
[2022-01-01] MEDS: METOPROLOL SUCC 50MG EXT REL TAB PO SCH (20:36)
[2022-01-01] MEDS ORDERED: METOPROLOL SUCC 25MG EXT REL TAB PO SCH (21:00)
[2022-01-02] MEDS: LEVOTHYROXINE SODIUM 50 MCG TABLET PO SCH (06:13)
--- NOTE | 2022-01-02 07:51 | Cardiology Progress Note ---
Date of Service January 02, 2022 Assessment & Plan (1) Chest pain: (2) Ischemic cardiomyopathy: (3) CAD (coronary artery disease): (4) H/O cardiac arrest: (5) H/O two vessel coronary artery bypass graft: (6) Pacemaker: (7) ICD (implantable cardioverter-defibrillator) in place: (8) HTN (hypertension): Plan 81-year-old male with complex ischemic heart disease with last coronary intervention 04/2021 after presenting following an ICD discharge. Patient is physically active noting extensive exertion on day prior to admission. Patient presented to the emergency department for symptoms of atypical angina. Work-up has been negative thus far including normal high-sensitivity troponins, and stable echocardiogram. AICD working well per hospitalist team. Symptoms of atypical chest discomfort have resolved with this morning. Currently no indications proceeding to cardiac catheterization especially in light of recent contrast administration. If change in symptoms or worsening complaints observed would proceed. Renal decline noted on this morning's BMP. Encourage adequate hydration. Medications optimized, continue metoprolol succinate 50 mg twice daily at discharge, increased 01/01. Case discussed with Dr. Bynum. Jocelyne to discharge from a cardiology standpoint. Follow up with cardiology as an outpatient in in 4-6 weeks. I will arrange. Admission and Anticipated Discharge Date Admission Date: January 01, 2022 Supervising Physician Co-Signing Physician Notes Patient was seen and personally examined. Evaluation as above. No further symptoms of chest pain or discomfort with atypical complaints on presentation. No evidence of acute ischemia by enzyme analysis. Patient ambulatory in room and hallway without difficulty. Would recommend BMP in 1 week given mild decline in creatinine likely contrast mediated Medications adjusted as above. Patient to promptly report any recurrence of complaints with outpatient cardiology follow-up to be scheduled Subjective Medically complex 81-year-old male with a history of complex CAD and ischemic cardiomyopathy with pacemaker/ICD in place. Initially presented with atypical chest discomfort. Work-up has been negative thus far. Telemetry: Paced in the 60s 01/02/2022: Patient resting comfortably in bed without acute concern. Chest discomfort completely resolved. Denies any difficulties completing morning ADLs. Eager to go home today. Blood pressure and heart rate stable overnight. Unable to locate AICD interrogation report, Per hospitalist note yesterday, " AICD was interrogated and is working appropriately with no events or issues noted per the field contact technician". Renal decline after receiving IV contrast, serum creatinine 1.5. 01/01/2022: Metoprolol succinate increased to 50 mg twice daily AICD interrogated Review of Systems Review of Systems: All systems reviewed & are unremarkable except as noted in HPI & below Physical Exam Constitutional: WD/WN, vitals as above no acute distress Eyes: PERRL, conjunctivae normal, anicteric sclerae Neck: normal visual inspection and trachea midline Respiratory: normal respiratory effort, lungs clear to auscultation no cough Cardiovascular: RRR, no murmur, no edema Heart Sounds: normal S1 and normal S2 Vessels: no JVD and no carotid bruit Chest (Breasts): Chest: + pacemaker (no signs of infection) Gastrointestinal (Abdomen): normal bowel sounds, soft, nontender, no hepatosplenomegaly Skin: no rashes, warm and dry Psychiatric: A+Ox3, euthymic affect Results & Data ([facility]) Vital Signs (Past 12 Hours) Vital Signs Temp Pulse Pulse Resp BP BP Pulse Ox 01/02/22 07:40 01/02/22 07:13 61 01/02/22 04:00 36.7 C 60 18 110/73 95 01/01/22 23:48 60 01/01/22 23:19 36.7 C 60 18 117/70 97 O2 Del Method 01/02/22 07:40 Room Air 01/02/22 07:13 01/02/22 04:00 Room Air 01/01/22 23:48 01/01/22 23:19 Room Air Laboratory Results Cardiac Enzymes 01/01/22 01/02/22 Range/Units 11:12 07:19 Troponin I High Sens 10.5 9.2 (0-20) pg/ml CBC 01/02/22 Range/Units 07:19 WBC 6.15 (4.8-10.8) K/ul RBC 4.55 L (4.63-6.08) M/uL Hgb 13.6 L (14.0-18.0) g/dl Hct 41.6 (40.1-51.0) % Plt Count 175 (130-400) K/uL Comprehensive Metabolic Panel 01/02/22 Range/Units 07:19 Sodium 138 (136-145) mmol/L Potassium 3.9 (3.5-5.1) mmol/L Chloride 105 (98-107) mmol/L Carbon Dioxide 26 (21-32) mmol/L BUN 24 H (6-23) mg/dl Creatinine 1.51 H D (0.6-1.4) mg/dl Glucose 83 (70-99(Fasting)) mg/dl Calcium 8.5 (8.5-10.1) mg/dl Intake and Output 01/01/22 01/02/22 01/02/22 22:59 06:59 14:59 Intake Total 200 / 630 430 / 630 Output Total 0 / 0 0 / 0 Balance 200 / 630 430 / 630 Intake: Oral 200 / 630 430 / 630 Output: Urine 0 / 0 0 / 0 Other: Weight 68.8 kg 67 kg Weight Measurement Method Standing Scale Standing Scale (1) Chest pain Chest pain type: unspecified Qualified Code(s): R07.9 - Chest pain, unspecified
[2022-01-02 08:21] LABS: Hematocrit (blood only) 41.6 % (40.1-51.0); Hemoglobin 13.6 g/dl (14.0-18.0); Mean Corpuscular Hemoglobin 29.9 pg (25.0-34.0); Mean Corpuscular Hgb Conc 32.7 g/dL (32.0-36.0); Mean Corpuscular Volume 91.4 fL (80.0-100.0); Mean Platelet Volume 10.6 fL (9.4-12.4); Platelet Count 175 K/uL (130-400); RDW Coefficient of Variation 13.8 % (11.5-14.5); RDW Standard Deviation 46.5 fL (36.4-46.3); Red Blood Count 4.55 M/uL (4.63-6.08); White Blood Count 6.15 K/ul (4.8-10.8)
[2022-01-02] MEDS: ISOSORBIDE MONO EXTENDED REL 30 MG TABCR PO SCH (08:23)
[2022-01-02] MEDS: METOPROLOL SUCC 50MG EXT REL TAB PO SCH (08:23)
[2022-01-02] MEDS: lisinopril 20 MG TAB PO SCH (08:24)
[2022-01-02] MEDS: ROSUVASTATIN CALCIUM 5 MG TAB PO SCH (08:24)
[2022-01-02] MEDS: ASPIRIN 81 MG ECTAB PO SCH (08:24)
[2022-01-02] MEDS: amLODIPine BESYLATE 5 MG TAB PO SCH (08:24)
[2022-01-02] MEDS: AMIODARONE 200 MG TAB PO SCH (08:24)
[2022-01-02] MEDS: CLOPIDOGREL BISULFATE 75 MG TAB PO SCH (08:25)
[2022-01-02] MEDS: FINASTERIDE 5 MG TAB PO SCH (08:25)
[2022-01-02 08:43] LABS: BUN Creatinine Ratio 15.9 (10-20); Calcium 8.5 mg/dl (8.5-10.1); Creatinine Clr Calc Pharmacy 32.9 ml/min; Est GFR (African American) 49.8 ml/min; Magnesium 2.2 mg/dl (1.7-2.4); Potassium 3.9 mmol/L (3.5-5.1)
[2022-01-02 08:47] LABS: Troponin I High Sensitivity 9.2 pg/ml (0-20)
--- NOTE | 2022-01-02 09:41 | Electrocardiogram Report ---
Test Reason : Blood Pressure : / mmHG Vent. Rate : 060 BPM Atrial Rate : 060 BPM P-R Int : 348 ms QRS Dur : 142 ms QT Int : 506 ms P-R-T Axes : 029 006 198 degrees QTc Int : 506 ms Atrial-paced rhythm with prolonged AV conduction Left bundle branch block Abnormal ECG When compared with ECG of 31-DEC-2021 22:39, No significant change was found Confirmed by Arpit Rodriguez ([id number]) on 01/02/2022 9:41:01 AM Referred By: REFERRED SELF Confirmed By:Arpit Rodriguez
[2022-01-02 11:23] LABS: BUN Creatinine Ratio 16.1 (10-20); Calcium 8.5 mg/dl (8.5-10.1); Creatinine Clr Calc Pharmacy 36.2 ml/min; Est GFR (African American) 56.1 ml/min; Est GFR (Non-African American) 48.4 ml/min; Potassium 3.9 mmol/L (3.5-5.1)
--- NOTE | 2022-01-02 13:12 | Discharge Summary ---
Date of Service January 02, 2022 Admission HPI Per Admitting Provider This is an 81-year-old male with past medical history significant for hypothyroidism, hyperlipidemia, history of chronic kidney disease stage III, history of CABG, history of multiple coronary interventions, most recently in 04/2021 with a drug-eluting stent to SVG, history of coronary bypass surgery in 1980; repeat in 1999, cardiac arrest x 2, dual chamber ICD placement, V-fib arrest, systolic CHF, GERD, BPH, presents with chest pain. The patient lives alone, ambulates without any support. The patient has some chest pains on and off since last evening, he took nitro, it seemed to help, but the pain seemed to come back , that is why he came back to the hospital. It is in the left lower chest, radiating to the back, mild in severity, aching pain, sometimes sharp pains. Currently, the pain only just feeling some soreness in that area, not associated with any nausea or sweating, dizziness or headaches. Currently, resting comfortably and hemodynamically stable. Denies any blurred visions, no earache, no runny nose, no sore throat, no cough, no fever, no chills. Appetite is okay. No difficulty swallowing. No nausea, no vomiting, no shortness of breath, no abdominal pain. Normal bowel and bladder movements. No swelling in the legs. Admission Exam Per Admitting Provider GENERAL: The patient is old and frail, not in acute distress. VITAL SIGNS: Temperature 36.9, pulse 60, respiratory rate 20, blood pressure 146/88, oxygen 97% on room air. HEENT: Pupils equal, round and reactive to light. Oral mucosa moist. NECK: No JVD. No neck masses. CARDIOVASCULAR: S1 and S2 heard. Regular rate and rhythm. No murmur, no gallop. RESPIRATORY SYSTEM: Normal AP diameter. No accessory muscle use. No wheezing, no crackles. ABDOMEN: Soft. Bowel sounds present, nontender, no distention. CENTRAL NERVOUS SYSTEM: Cranial nerves II-XII grossly intact, nonfocal. EXTREMITIES: No edema, no erythema. Principal Diagnosis Chest pain Discharge Exam General: Sitting comfortably in bed, not in distress, on room air HEENT: EOMI, TIANA, MMM Chest: no chest wall tenderness. Clear breath sounds bilaterally, no wheezes or crackles CVS: Regular rate and rhythm, normal heart sounds, no murmur Abdomen: Soft, non tender, not distended, normal bowel sounds Neuro: Awake, alert, oriented, conversing well, non focal Extremities: No edema He is independent with ADL. He ambulated in the room independently in my presence. Discharge Data Allergies Allergy/AdvReac Type Severity Reaction Status Date / Time pantoprazole [From Protonix] Allergy Unknown Hives Verified 01/01/22 01:04 sucralfate Allergy Unknown Hives Verified 01/01/22 01:04 Consultations 01/01/22 00:50 ED Decision to Admit Stat 01/01/22 08:00 Consult Cardiology Routine Ordered Studies 12/31/21 23:35 CT angio chest PE protocol Urgent Laboratory Results WBC 6.15 K/ul (4.8-10.8) 01/02/22 07:19 RBC 4.55 M/uL (4.63-6.08) L 01/02/22 07:19 Hgb 13.6 g/dl (14.0-18.0) L 01/02/22 07:19 Hct 41.6 % (40.1-51.0) 01/02/22 07:19 MCV 91.4 fL (80.0-100.0) 01/02/22 07:19 MCH 29.9 pg (25.0-34.0) 01/02/22 07:19 MCHC 32.7 g/dL (32.0-36.0) 01/02/22 07:19 RDW Std Deviation 46.5 fL (36.4-46.3) H 01/02/22 07:19 RDW Coeff of Ángel 13.8 % (11.5-14.5) 01/02/22 07:19 Plt Count 175 K/uL (130-400) 01/02/22 07:19 MPV 10.6 fL (9.4-12.4) 01/02/22 07:19 Immature Gran % (Auto) 0.4 % 01/01/22 05:01 Neut % (Auto) 69.9 % 01/01/22 05:01 Lymph % (Auto) 16.2 % 01/01/22 05:01 [place] % (Auto) 7.9 % 01/01/22 05:01 Eos % (Auto) 4.9 % 01/01/22 05:01 Baso % (Auto) 0.7 % 01/01/22 05:01 Neut # (Auto) 3.89 K/uL (1.4-6.5) 01/01/22 05:01 Lymph # (Auto) 0.90 K/uL (1.2-3.4) L 01/01/22 05:01 [place] # (Auto) 0.44 K/uL (0.24-0.82) 01/01/22 05:01 Eos # (Auto) 0.27 K/uL (0-0.50) 01/01/22 05:01 Baso # (Auto) 0.04 K/uL (0-0.2) 01/01/22 05:01 Immature Gran # (Auto) 0.02 K/uL (0.00-0.02) 01/01/22 05:01 PT 11.5 Seconds (9.0-12.0) 12/31/21 22:48 INR 1.1 (0.9-1.1) 12/31/21 22:48 APTT 25.4 Seconds (21.0-31.0) 12/31/21 22:48 PTT Ratio 0.9 12/31/21 22:48 Sodium 138 mmol/L (136-145) 01/02/22 10:46 Potassium 3.9 mmol/L (3.5-5.1) 01/02/22 10:46 Chloride 104 mmol/L (98-107) 01/02/22 10:46 Carbon Dioxide 28 mmol/L (21-32) 01/02/22 10:46 Anion Gap 6 (3-11) 01/02/22 10:46 BUN 22 mg/dl (6-23) 01/02/22 10:46 Creatinine 1.37 mg/dl (0.6-1.4) 01/02/22 10:46 Est Cr Clr Drug Dosing 36.2 ml/min 01/02/22 10:46 Est GFR ( Amer) 56.1 ml/min 01/02/22 10:46 Est GFR (Non-Af Amer) 48.4 ml/min 01/02/22 10:46 BUN/Creatinine Ratio 16.1 (10-20) 01/02/22 10:46 Glucose 87 mg/dl (70-99(Fasting)) 01/02/22 10:46 Calcium 8.5 mg/dl (8.5-10.1) 01/02/22 10:46 Magnesium 2.2 mg/dl (1.7-2.4) 01/02/22 07:19 Total Bilirubin 0.7 mg/dl (0.2-1.0) 12/31/21 22:48 AST 23 U/L (13-39) 12/31/21 22:48 ALT 26 U/L (7-52) 12/31/21 22:48 Alkaline Phosphatase 72 U/L (34-104) 12/31/21 22:48 Troponin I High Sens 9.2 pg/ml (0-20) 01/02/22 07:19 Total Protein 7.5 gm/dl (6.0-8.3) 12/31/21 22:48 Albumin 4.3 gm/dl (3.4-5.0) 12/31/21 22:48 Globulin 3.2 gm/dl (2.5-4.0) 12/31/21 22:48 Albumin/Globulin Ratio 1.3 (0.9-2) 12/31/21 22:48 SARS-CoV-2, RNA, NAAT NEGATIVE (NEGATIVE) 01/01/22 00:40 Impressions Chest X-Ray 12/31/21 22:37 SINGLE VIEW CHEST CLINICAL HISTORY: Atypical chest pain. FINDINGS: An AP, portable, upright chest radiograph is compared to study dated 04/19/2021. The patient is status post midline sternotomy. A 2-lead cardiac AICD is unchanged in position and largely obscures the left lower chest. The heart is enlarged noting atherosclerotic calcification of the thoracic aorta. The pul monary vasculature is noncongested. There is elevation of the left hemidiaphragm with bibasilar scarring/atelectasis. No airspace consolidation or large pleural effusion is identified. No pneumothorax is seen. The skeletal structures are osteopenic. The bony thorax is grossly intact. IMPRESSION: 1. Cardiomegaly and AICD without radiographic evidence of congestive failure. 2. No airspace consolidation or large pleural effusion is identified. ACT 112: Negative or not required by law. Electronically signed by: Chuck Pacheco M.D. 01/01/2022 8:29 AM Chest CTA 12/31/21 23:35 CT angio chest PE protocol CLINICAL HISTORY: PE TECHNIQUE: Multidetector row helical CT of the chest was performed with angiographic protocol. Coronal and sagittal reformations were obtained. Coronal and sagittal MIPS were obtained from the axial data set and were submitted for review. Automated dose lowering techniques and/or adjustment according to patient size were utilized for this exam. CT DOSE: 255.44 mGy.cm Comparison: Comparison is made to chest radiograph 04/19/2021 and chest radiograph 12/31/2021 FINDINGS: Lungs and pleura: Atelectasis versus scarring is seen in the dependent portions of the lungs. Heart and pericardium: Cardiomegaly is seen with biatrial enlargement. Pacemaker defibrillator is noted. Vessels: Postsurgical changes of coronary bypass are noted. Atherosclerotic changes are seen. No evidence of pulmonary embolus is seen. Mediastinum and nicholas: Subcentimeter lymph nodes are seen. Chest wall and lower neck: Unremarkable. 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 Bones: Unremarkable. IMPRESSION: No evidence of pulmonary embolism or other acute abnormality. Redemonstration of cardiomegaly and postsurgical changes about the heart. ACT 112: Negative or not required by law. Electronically signed by: Candido Oswald M.D. 01/01/2022 8:26 AM Hospital Course (1) Chest pain: Plan 81 year old male with PMH as above presented to the ED with an episode of chest pain under the left breast. ACS ruled out with serial trop, EKG. Tele unremarkable. ICD interrogation unremarkable. Echo reviewed. He has had no more chest pain since presentation. Seen by cardio and cleared for discharge home- hi s toprol was increased to 50 bid. His Cr was slightly up this morning but already downtrending. Recommended repeat BMP in a week and follow up with cardio and PCP. He is comfortable and stable for discharge home. Ambulating independently without issues, no CP or WILLETT. Declines any needs for discharge. Total Time Total Time Spent Total Time Spent (In Minutes): 35 Discharge Plan Discharge Items Patient Disposition: Home - Self-Care Reason For Visit: CHEST PAIN Discharge Diagnosis: Chest pain Activity: Resume your previous activity Non-emergency contact: Primary Care Provider and Band Saw Operator Call non-emergency contact if: you have any medication questions, your symptoms worsen and your pain is concerning for you Follow-up/Referrals: Roslyn Gale DO [Primary Care Provider] - (Date & Time 01/10/2022 12:00 PM Provider Paola Rudolph DO Department [facility] [place] ) Diet: Heart Healthy Addtl Attending Provider Instructions: You were seen by cardiology. You currently do not have acute heart attack. Cardiology increased your metoprolol to 50 mg twice daily Recommend repeat blood work (BMP) in a week and follow with family doctor. If you have recurrent chest pain, please call cardiology immediately or come to the emergency. Pending Studies at Discharge: No Stand-Alone Forms: My [facility], Smoking Cessation Medications and DC Order Prescriptions: Continued lisinopril 20 mg Tablet 20 mg PO QAM Qty: 0 amlodipine 5 mg Tablet 5 mg PO QAM Qty: 0 levothyroxine 50 mcg Tablet 50 mcg PO QAM Qty: 0 isosorbide mononitrate 30 mg Tablet Extended Release 24 Hr 30 mg PO QAM clopidogrel [Plavix] 75 mg Tablet 75 mg PO QAM finasteride 5 mg Tablet 5 mg PO QAM aspirin [Thomas Low Dose Aspirin] 81 mg Tablet,Delayed Release (Dr/Ec) 81 mg PO QAM nitroglycerin [Nitrostat] 0.4 mg Tablet, Sublingual 1 dose Sublingual UD PRN (Reason: Chest Pain) amiodarone 200 mg tablet 200 mg PO DAILY rosuvastatin 5 mg tablet 5 mg PO DAILY metoprolol succinate 50 mg Tablet Extended Release 24 Hr 50 mg PO QAM Qty: 60 0RF Discontinued metoprolol succinate 25 mg Tablet Extended Release 24 Hr 25 mg PO QPM Discharge Orders: Discharge Order (Routine); Ordered 01/02/22 Ordered By: Reese Rinaldi Admission Data Admit Date/Time: 01/01/22 01:28 Attending Provider: Reese Rinaldi Admit Provider: Jake Thompson Primary Care Provider: Roslyn Gale Other Providers: Jake Thompson ; Dion Aguiar ; Ken Jacobs ; Geovani Bynum ; Kirk Ramos ; Alexis Danielle ; Ezequiel Mock ; Vee Beckwith ; Nancy Ramon ; Candace Adhikari ; Mega Stuart Other Interventions: Discharge Summary Assessment (RN) Last Done: 01/02/22 12:21
== END 2022-01-02 14:24 | disposition home or self-care (01) ==
LOC: ED 22:32 → EDINP 22:32 → 2N 01-01 03:30

== ENCOUNTER 2022-09-25 16:34 | Inpatient (IN) ==
--- NOTE | 2022-09-25 16:53 | Emergency Department Note ---
Impression & Plan Acute exacerbation of CHF (congestive heart failure), Elevated brain natriuretic peptide (BNP) level, Acute dyspnea, Acute hypokalemia ED Provider Note HISTORY OF PRESENT ILLNESS: Patient is an 81-year-old male presenting with shortness of breath. Patient reports he has been having progressively worsening shortness of breath for the last 3 months. However, since last night he has been having significant worsening shortness of breath and was noted to have saturations of 80% today. He is only able to take a few steps before becoming significantly winded. Denies any chest pain with shortness of breath. He denies any history of DVT or PE. He is on aspirin and Plavix daily. He has a history of multiple cardiac stents. Denies any lower extremity edema. Family reports the patient has had a 20 pound weight loss in the last 5 months. Before he has had numerous tests as an outpatient without any answers. No reported abdominal pain. No reported fevers. ROS: as above PHYSICAL EXAM: Constitutional: Patient appears in no acute distress. HENT: Head: Normocephalic and atraumatic. Eyes: EOMI, PERRL Mouth/Throat: Mucous membranes moist. Neck: Trachea midline. Neck supple. Cardiovascular: RRR, No murmurs, rubs or gallops. Intact distal pulses. Pulmonary/Chest: No respiratory distress. Breath sounds clear and equal bilaterally. No wheezes or rales. Conversationally dyspneic. Coarse breath sounds bilaterally. Abdominal: BS +. Abdomen soft, no tenderness, rebound or guarding. Musculoskeletal: No edema, tenderness or deformity noted. Skin: Warm and dry. No rash, erythema, pallor or cyanosis Psychiatric: Appropriate mood and affect for situation. Neurological: Alert and keenly responsive. CN II-XII grossly intact, moving all extremities equally and fully. MDM: - Vitals signs stable. - History obtained via patient. Patient presents with dyspnea. Reports progressively worsening dyspnea over the last 3 months, but significantly worse since last night. Reportedly had saturations of 80% today. Denies any DVT or PE history. He is on aspirin and Plavix daily. - Chronic conditions affecting care: CAD (s/p PCI); HTN; hypothyroidism; ischemic cardiomyopathy (s/p ICD and pacemaker); CHF - Differential diagnoses include, but are not limited to: Congestive heart failure; acute coronary syndrome; COPD/asthma exacerbation; pulmonary edema; pulmonary embolism; pneumonia; pneumothorax; viral syndrome - Order placed for continuous cardiac monitoring. At this time, monitor showed rate of 85 bpm with normal sinus rhythm, per my interpretation. - External medical records reviewed. Cardiology clinic note from March 2022 was reviewed. He had an ICD generator change performed in March - EKG reviewed by myself showed left bundle branch block, which has been noted on previous EKGs. No acute ischemic changes. Rate 61 bpm. - Laboratory workup interpreted by myself showed normal WBC; stable anemia; normal troponin; hypokalemia (K 3.4); normal creatinine; elevated BNP (3205) - Imaging interpretation by myself pulmonary vascular congestion, per my interpretation. Radiologist notes layering pleural effusion. - Patient givne 40 mg IV lasix. - He was started on 2L NC in ER. - Considered CT PE of the chest, but patient's hypoxia is likely secondary to pulmonary edema and he is has been taking his aspirin and plavix as prescribed. - Discussed case with manager social media about need for admission. - Discussed case with hospitalist for admission. - [facility] ASSESSMENT AND PLAN: Diagnosis: acute CHF exacerbation; dyspnea; pulmonary edema; hypokalemia Plan: admit Past Med/Surg History Medical History (Updated 09/25/22 @ 18:35 by Martha Tapia MD) BPH (benign prostatic hyperplasia) CAD (coronary artery disease) CKD (chronic kidney disease) stage 3, GFR 30-59 ml/min GERD (gastroesophageal reflux disease) H/O cardiac arrest H/O myocardial ischemia HTN (hypertension) Hypothyroidism ICD (implantable cardioverter-defibrillator) in place PLACED 2012 @ [facility] LAST CHECKED VIA REMOTE 09/20/2017 Ischemic cardiomyopathy EF 30-35% Pacemaker PLACED 2012 LAST CHECKED VIA REMOTE 09/20/2017 Prostate cancer Dx 2011, surveillance only Stable angina pectoris Systolic CHF Surgical History (Updated 01/01/22 @ 10:26 by WILLOW Trujillo) Encounter for insertion of cardiac resynchronization therapy defibrillator H/O two vessel coronary artery bypass graft 1990 and 1999 History of appendectomy History of cardiac cath X6 STENTS (2012 & 2014 [place]) UNSURE OF DATES -- WILL BRING STENT CARDS DOS History of tonsillectomy Family History (Updated 04/19/21 @ 17:19 by Carmen Finn PA-C) Other Coronary heart disease Social History Smoking Status: Never smoker Second Hand Exposure: No; Do You Dip or Chew Tobacco: No; Hx Alcohol Use: No Hx Substance Use: No Preferred Language: Surinamese Communication Ability: Effective Soundscriber Mechanic Required: No Beliefs That Will Affect Care: None marital status: Unknown Current Living Situation: Alone Feels Safe at Home: Yes Assistive Devices: Glasses Allergies Allergies Allergy/AdvReac Type Severity Reaction Status Date / Time pantoprazole [From Protonix] Allergy Unknown Hives Verified 03/14/22 07:12 sucralfate Allergy Unknown Hives Verified 03/14/22 07:12 Home Meds Home Medications Medication Instructions Recorded Confirmed lisinopril 20 mg tablet 20 mg PO QAM ##0 07/19/09 03/14/22 amlodipine 5 mg tablet 5 mg PO QAM ##0 08/15/11 03/14/22 levothyroxine 50 mcg tablet 50 mcg PO QAM ##0 08/15/11 03/14/22 aspirin 81 mg tablet,delayed 81 mg PO QAM 01/16/18 03/14/22 release (Thomas Low Dose Aspirin) clopidogrel 75 mg tablet (Plavix) 75 mg PO QAM 01/16/18 03/14/22 finasteride 5 mg tablet 5 mg PO QAM 01/16/18 03/14/22 isosorbide mononitrate 30 mg 30 mg PO QAM 01/16/18 03/14/22 tablet,extended release 24 hr nitroglycerin 0.4 mg sublingual 1 dose sublingual UD PRN Chest Pain 01/16/18 03/14/22 tablet (Nitrostat) amiodarone 200 mg tablet 200 mg PO DAILY 01/01/22 03/14/22 rosuvastatin 5 mg tablet 5 mg PO DAILY 01/01/22 03/14/22 Previous Rx's Medication Instructions Recorded metoprolol succinate 50 mg 50 mg PO QAM #60 tabs 01/02/22 tablet,extended release 24 hr Results & Data (ED) Vital Signs Vital Signs - 24 hr 09/25/22 16:37 09/25/22 16:35 09/25/22 16:49 Temperature 36.8 C Temperature Source Temporal Artery Scan Pulse Rate 84 60 Pulse Rate [Apical] 60 Respiratory Rate 16 18 18 Respiratory Effort / Characteristics Non-Labored Spontaneous Respiratory Depth Normal Respiratory Pattern Regular Blood Pressure 108/71 Blood Pressure [Left Arm] 107/68 Blood Pressure Mean 83 Blood Pressure Mean [Left Arm] 81 Blood Pressure Position Sitting Pulse Oximetry 93 95 95 Oxygen Delivery Method Room Air Nasal Cannula Oxygen Flow Rate 2 Sepsis Recent Fever Within 48 Hours No Sepsis New/Unexplained Change in Mental Status N/A Sepsis Action Taken by Nursing No Action Required 09/25/22 16:49 09/25/22 17:35 Temperature Temperature Source Pulse Rate 60 Pulse Rate [Apical] Respiratory Rate Respiratory Effort / Characteristics Respiratory Depth Respiratory Pattern Blood Pressure Blood Pressure [Left Arm] Blood Pressure Mean Blood Pressure Mean [Left Arm] Blood Pressure Position Pulse Oximetry Oxygen Delivery Method Room Air Oxygen Flow Rate Sepsis Recent Fever Within 48 Hours Sepsis New/Unexplained Change in Mental Status Sepsis Action Taken by Nursing Laboratory Data 09/25/22 17:06 09/25/22 17:06 Lab Results 09/25/22 09/25/22 09/25/22 Range/Units 17:06 17:06 17:06 WBC 7.71 (4.8-10.8) K/ul RBC 4.04 L (4.70-6.10) M/uL Hgb 12.4 L (14.0-18.0) g/dl Hct 36.6 L (42.0-52.0) % MCV 90.6 (80.0-100.0) fL MCH 30.7 (25.0-34.0) pg MCHC 33.9 (32.0-36.0) g/dL RDW Std Deviation 54.0 H (36.4-46.3) fL RDW Coeff of Ángel 16.4 H (11.5-14.5) % Plt Count 150 (130-400) K/uL MPV 11.8 (9.4-12.4) fL Immature Gran % (Auto) 0.6 % Neut % (Auto) 82.1 % Lymph % (Auto) 7.4 % [place] % (Auto) 8.7 % Eos % (Auto) 0.8 % Baso % (Auto) 0.4 % Neut # (Auto) 6.33 (1.40-6.50) K/uL Lymph # (Auto) 0.57 L (1.2-3.4) K/uL [place] # (Auto) 0.67 H (0.11-0.59) K/uL Eos # (Auto) 0.06 (0-0.50) K/uL Baso # (Auto) 0.03 (0-0.2) K/uL Immature Gran # (Auto) 0.05 (0.01-0.20) K/uL Sodium 132 L (136-145) mmol/L Potassium 3.4 L (3.5-5.1) mmol/L Chloride 99 (98-107) mmol/L Carbon Dioxide 23 (21-32) mmol/L Anion Gap 10 (3-11) BUN 23 (6-23) mg/dl Creatinine 1.00 (0.6-1.4) mg/dl Est Cr Clr Drug Dosing 45.5 ml/min Est GFR ( Amer) 82.0 ml/min Est GFR (Non-Af Amer) 70.8 ml/min BUN/Creatinine Ratio 23.0 H (10-20) Glucose 125 H (70-99(Fasting)) mg/dl Calcium 8.6 (8.6-10.3) mg/dl Magnesium 1.9 (1.7-2.4) mg/dl Total Bilirubin 1.3 H (0.2-1.0) mg/dl AST 20 (13-39) U/L ALT 23 (7-52) U/L Alkaline Phosphatase 72 (34-104) U/L Troponin I High Sens 13.0 (0-20) pg/ml B-Natriuretic Peptide 3205 H (0-100) pg/ml Total Protein 7.2 (6.0-8.3) gm/dl Albumin 3.6 (3.4-5.0) gm/dl Globulin 3.6 (2.5-4.0) gm/dl Albumin/Globulin Ratio 1.0 (0.9-2) Imaging Data Radiologist's Impression: Chest X-Ray 09/25/22 16:49 SINGLE VIEW CHEST CLINICAL HISTORY: Dyspnea. FINDINGS: An AP, portable, upright chest radiograph is compared to chest x-ray and chest CT dated 12/31/2021. The patient is status post midline sternotomy. A 2-lead cardiac AICD is unchanged in position and partially obscures the left lower chest. The heart is enlarged noting atherosclerotic calcification of the thoracic area. There is pulmonary vascular congestion with mild interstitial edema. There are layering pleural effusions with dependent consolidation. No pneumothorax is seen. The skeletal structures are osteopenic. The bony thorax is grossly intact. Cholecystectomy clips are noted in the right upper quadrant. IMPRESSION: 1. Cardiomegaly and AICD with evidence of congestive failure. 2. Small pleural effusions with dependent consolidation. ACT 112: Negative or not required by law. Electronically signed by: Chuck Pacheco M.D. 09/25/2022 5:30 PM Discharge Plan Visit Data Chief Complaint: Shortness of Breath/Dyspnea Stated Complaint: SOB,O2 81,WEAKNESS, ED Provider: Martha Tapia Discharge Problem: Acute exacerbation of CHF (congestive heart failure), Elevated brain natriuretic peptide (BNP) level, Acute dyspnea, Acute hypokalemia Forms Stand Alone Forms: [facility] Nu-Pulse Prescriptions Prescriptions: No Action lisinopril 20 mg Tablet 20 mg PO QAM Qty: 0 amlodipine 5 mg Tablet 5 mg PO QAM Qty: 0 levothyroxine 50 mcg Tablet 50 mcg PO QAM Qty: 0 isosorbide mononitrate 30 mg Tablet Extended Release 24 Hr 30 mg PO QAM clopidogrel [Plavix] 75 mg Tablet 75 mg PO QAM finasteride 5 mg Tablet 5 mg PO QAM aspirin [Thomas Low Dose Aspirin] 81 mg Tablet,Delayed Release (Dr/Ec) 81 mg PO QAM nitroglycerin [Nitrostat] 0.4 mg Tablet, Sublingual 1 dose Sublingual UD PRN (Reason: Chest Pain) amiodarone 200 mg tablet 200 mg PO DAILY rosuvastatin 5 mg tablet 5 mg PO DAILY metoprolol succinate 50 mg Tablet Extended Release 24 Hr 50 mg PO QAM Qty: 60 0RF Referrals Referrals: Roslyn Gale DO [Primary Care Provider] -
--- NOTE | 2022-09-25 17:32 | XRay Report ---
SINGLE VIEW CHEST CLINICAL HISTORY: Dyspnea. FINDINGS: An AP, portable, upright chest radiograph is compared to chest x-ray and chest CT dated 12/12. The patient is status post midline sternotomy. A 2-lead cardiac AICD is unchanged in position and partially obscures the left lower chest. The heart is enlarged noting atherosclerotic calcificat ion of the thoracic area. There is pulmonary vascular congestion with mild interstitial edema. There are layering pleural effusions with dependent consolidation. No pneumothorax is seen. The skeletal st ructures are osteopenic. The bony thorax is grossly intact. Cholecystectomy clips are noted in the ri ght upper quadrant. IMPRESSION: 1. Cardiomegaly and AICD with evidence of congestive failure. 2. Small pleural effusions with dependent consolidation. ACT 112: Negative or not required by law. Electronically signed by: Chuck Pacheco M.D. 09/25/2022 5:30 PM
[2022-09-25 17:51] LABS: Basophils # (auto) 0.03 K/uL (0-0.2); Basophils % (auto) 0.4 %; Eosinophils # (auto) 0.06 K/uL (0-0.50); Eosinophils % (auto) 0.8 %; Hematocrit (blood only) 36.6 % (42.0-52.0); Hemoglobin 12.4 g/dl (14.0-18.0); Immature Granulocytes # (auto) 0.05 K/uL (0.01-0.20); Immature Granulocytes % (auto) 0.6 %; Lymphocytes # (auto) 0.57 K/uL (1.2-3.4); Lymphocytes % (auto) 7.4 %; Mean Corpuscular Hemoglobin 30.7 pg (25.0-34.0); Mean Corpuscular Hgb Conc 33.9 g/dL (32.0-36.0); Mean Corpuscular Volume 90.6 fL (80.0-100.0); Mean Platelet Volume 11.8 fL (9.4-12.4); Monocytes # (auto) 0.67 K/uL (0.11-0.59); Monocytes % (auto) 8.7 %; Neutrophils # (auto) 6.33 K/uL (1.40-6.50); Neutrophils % (auto) 82.1 %; Platelet Count 150 K/uL (130-400); RDW Coefficient of Variation 16.4 % (11.5-14.5); Red Blood Count 4.04 M/uL (4.70-6.10); White Blood Count 7.71 K/ul (4.8-10.8)
[2022-09-25 18:09] LABS: Albumin Level 3.6 gm/dl (3.4-5.0); Bilirubin,Total 1.3 mg/dl (0.2-1.0); Calcium 8.6 mg/dl (8.6-10.3); Creatinine Clr Calc Pharmacy 45.5 ml/min; Est GFR (Non-African American) 70.8 ml/min; Globulin 3.6 gm/dl (2.5-4.0); Magnesium 1.9 mg/dl (1.7-2.4); Potassium 3.4 mmol/L (3.5-5.1); Total Protein 7.2 gm/dl (6.0-8.3)
[2022-09-25] MEDS ORDERED: FUROSEMIDE 40 MG/4 ML VIAL IV ONE (18:16)
[2022-09-25 18:41] LABS: INR 1.3 (0.9-1.1)
--- NOTE | 2022-09-25 18:49 | History & Physical Report ---
Date of Service September 25, 2022 Assessment & Plan (1) Acute exacerbation of CHF (congestive heart failure): (2) Elevated brain natriuretic peptide (BNP) level: (3) Ischemic cardiomyopathy: (4) H/O cardiac arrest: (5) ICD (implantable cardioverter-defibrillator) in place: (6) Acute hypokalemia: (7) CAD (coronary artery disease): (8) HTN (hypertension): (9) CKD (chronic kidney disease) stage 3, GFR 30-59 ml/min: (10) Hypothyroidism: Plan This is an 81yo M with a PMH of ischemic cardiomyopathy with chronic systolic heart failure and an estimated left ventricular ejection fraction of 30%, severe CAD s/p CABG and most recently stent in 04/2021 with KALEN, history of V-fib and V. tach status post AICD updated in Mar 2022, hypothyroidism, dyslipidemia, hypertension, BPH, statin intolerance and other medical problems listed below who presents with progressively worsening shortness of breath over the past few weeks. Acute decompensated heart failure Progressive SOB BLE edema over past few weeks Afebrile, no leukocytosis, HS troponin WNL, BNP 3,000 CXR with cardiomegaly and AICD with evidence of congestive failure. Small pleural effusions with dependent consolidation Most recent echo in Dec 2021 with EF 30-35%, grade II diastolic dysfunction, aortic valve sclerosis Given 40mg IV Lasix in ED, monitor on tele, strict I&Os, repeat 2D echo, cardiology consult Continue Toprol, lisinopril Weight loss Per Epic, 23 lb unintentional weight loss since May, per chart review Outpatient CT chest revealing evidence of mass effect on the esophagus as a result of the enlarged left atrium, however, there is also suggestion of thickening of the mucosa above this level Mass effect likely contributing to appetite decline Dietitian consult placed, will add Boost BID for now CAD H/o CABG, KALEN in 2020 No CP, ECG without acute changes. Continue Toprol, aspirin, plavix, Imdur, statin H/o Vfib, vtach cardiac arrest AICD updated in Mar 2022. Continue amiodarone Hypothyroidism Continue levothyroxine BPH Continue finasteride CKD III Cr of 1 (baseline ~1.3). Daily BMP DVT Ppx: SQ heparin Code status: FULL PCP: Shahla Dispo: Admitted to PCU Patient seen in collaboration with Dr. Chu. Please see addendum. I spent a total of 75 minutes coordinating, documenting, and providing care for this patient excluding time spent in the performance of separately billed services. History of Present Illness Chief Complaint: SOB Primary Care Provider: Roslyn Gale DO This is an 81yo M with a PMH of ischemic cardiomyopathy with chronic systolic heart failure and an estimated left ventricular ejection fraction of 30%, severe CAD s/p CABG and most recently stent in 04/2021 with KALEN, history of V-fib and V. tach status post AICD updated in Mar 2022, hypothyroidism, dyslipidemia, hypertension, BPH, statin intolerance and other medical problems listed below who presents with progressively worsening shortness of breath over the past few weeks. Associated swelling in lower extremities and had trouble fitting boots due to swelling the past day or two. Usually sleeps lying down but had to get out of bed and sleep in recliner last night. Does not take a diuretic. Feels dizzy with quick movements. Does not require oxygen at baseline. Endorses unintentional weight loss of approximately 20-30 lbs since May. No night sweats. Underwent outpatient workup in August with CT chest revealing evidence of mass effect on the esophagus as a result of the enlarged left atrium, however, there is also suggestion of thickening of the mucosa above this level. Consider EGD. Colonoscopy performed around this time with with evidence of diverticulosis. No fever, chills, visual changes, CP, wheezing, N/V, abdominal pain, dysuria, diarrhea or constipation. Lives in same home as grandson. Ambulates independently. Allergies Allergy/AdvReac Type Severity Reaction Status Date / Time pantoprazole [From Protonix] Allergy Unknown Hives Verified 09/25/22 18:55 sucralfate Allergy Unknown Hives Verified 09/25/22 18:55 Home Medications Medication Instructions Recorded Confirmed Type lisinopril 20 mg tablet 20 mg PO QAM ##0 07/19/09 09/25/22 History amlodipine 5 mg tablet 5 mg PO QAM ##0 08/15/11 09/25/22 History aspirin 81 mg tablet,delayed 81 mg PO QAM 01/16/18 09/25/22 History release (Thomas Low Dose Aspirin) clopidogrel 75 mg tablet (Plavix) 75 mg PO QAM 01/16/18 09/25/22 History finasteride 5 mg tablet 5 mg PO QAM 01/16/18 09/25/22 History isosorbide mononitrate 30 mg 30 mg PO BID 01/16/18 09/25/22 History tablet,extended release 24 hr nitroglycerin 0.4 mg sublingual 1 dose sublingual UD PRN Chest Pain 01/16/18 09/25/22 History tablet (Nitrostat) amiodarone 200 mg tablet 200 mg PO DAILY 01/01/22 09/25/22 History rosuvastatin 5 mg tablet 5 mg PO DAILY 01/01/22 09/25/22 History albuterol sulfate 90 mcg/actuation 2 puff inhalation 6XD PRN 09/25/22 09/25/22 History aerosol inhaler (Proventil HFA) Shortness Of Breath Or Wheezing cetirizine 5 mg tablet 5 mg PO DAILY 09/25/22 09/25/22 History levothyroxine 75 mcg tablet 75 mcg PO DAILYBB 09/25/22 09/25/22 History metoprolol succinate 50 mg 50 mg PO BID 09/25/22 09/25/22 History tablet,extended release 24 hr Past Med/Surg History Medical History (Updated 09/25/22 @ 19:26 by Maria C Webb PA-C) BPH (benign prostatic hyperplasia) CAD (coronary artery disease) CKD (chronic kidney disease) stage 3, GFR 30-59 ml/min GERD (gastroesophageal reflux disease) H/O cardiac arrest H/O myocardial ischemia HTN (hypertension) Hypothyroidism ICD (implantable cardioverter-defibrillator) in place PLACED 2012 @ [facility] LAST CHECKED VIA REMOTE 09/20/2017 Ischemic cardiomyopathy EF 30-35% Pacemaker PLACED 2012 LAST CHECKED VIA REMOTE 09/20/2017 Prostate cancer Dx 2011, surveillance only Stable angina pectoris Systolic CHF Surgical History Encounter for insertion of cardiac resynchronization therapy defibrillator H/O two vessel coronary artery bypass graft 1990 and 1999 History of appendectomy History of cardiac cath X6 STENTS (2012 & 2014 [place]) UNSURE OF DATES -- WILL BRING STENT CARDS DOS History of tonsillectomy Family History Other Coronary heart disease Social History Smoking Status: Never smoker Second Hand Exposure: No; Do You Dip or Chew Tobacco: No; Hx Alcohol Use: No Hx Substance Use: No Preferred Language: Belgian Communication Ability: Effective Supervisor Tower Required: No Beliefs That Will Affect Care: None marital status: Unknown Current Living Situation: Alone Feels Safe at Home: Yes Assistive Devices: Glasses Review of Systems Review of Systems: At least ten systems reviewed and negative except as noted in the HPI. Physical Exam Physical Exam: Please see Dr. Chu's addendum for physical exam. Results & Data Results & Data Vital Signs (Past 12 Hours) Vital Signs Temp Pulse Pulse Resp BP BP Pulse Ox 09/25/22 18:43 73 18 132/83 97 09/25/22 17:35 60 09/25/22 16:49 09/25/22 16:49 60 18 95 09/25/22 16:35 60 18 107/68 95 09/25/22 16:37 36.8 C 84 16 108/71 93 O2 Del Method O2 Flow Rate 09/25/22 18:43 09/25/22 17:35 09/25/22 16:49 Room Air 09/25/22 16:49 09/25/22 16:35 Nasal Cannula 2 09/25/22 16:37 Room Air Laboratory Results Short CBC 09/25/22 Range/Units 17:06 WBC 7.71 (4.8-10.8) K/ul Hgb 12.4 L (14.0-18.0) g/dl Hct 36.6 L (42.0-52.0) % Plt Count 150 (130-400) K/uL BMP 09/25/22 17:06 Sodium 132 L Potassium 3.4 L Chloride 99 Carbon Dioxide 23 BUN 23 Creatinine 1.00 Glucose 125 H Calcium 8.6 Liver Function 09/25/22 Range/Units 17:06 Total Bilirubin 1.3 H (0.2-1.0) mg/dl AST 20 (13-39) U/L ALT 23 (7-52) U/L Alkaline Phosphatase 72 (34-104) U/L Albumin 3.6 (3.4-5.0) gm/dl Urine 09/25/22 Range/Units 18:40 Urine Color Bond Urine Appearance Cloudy A (Clear) Urine pH 5.0 (4.5-7.5) Ur Specific [place] 1.028 (1.000-1.030) Urine Protein 2+ H (Negative) Urine Glucose (UA) Negative (Negative) Diagnostic Findings Chest X-Ray 09/25/22 16:49 SINGLE VIEW CHEST CLINICAL HISTORY: Dyspnea. FINDINGS: An AP, portable, upright chest radiograph is compared to chest x-ray and chest CT dated 12/31/2021. The patient is status post midline sternotomy. A 2-lead cardiac AICD is unchanged in position and partially obscures the left lower chest. The heart is enlarged noting atherosclerotic calcification of the thoracic area. There is pulmonary vascular congestion with mild interstitial edema. There are layering pleural effusions with dependent consolidation. No pneumothorax is seen. The skeletal structures are osteopenic. The bony thorax is grossly intact. Cholecystectomy clips are noted in the right upper quadrant. IMPRESSION: 1. Cardiomegaly and AICD with evidence of congestive failure. 2. Small pleural effusions with dependent consolidation. ACT 112: Negative or not required by law. Electronically signed by: Chuck Pacheco M.D. 09/25/2022 5:30 PM ECG Additional Comments: EKG reviewed: LBBB previous noted, no acute ST changes Code Status & VTE Plan VTE Prophylaxis Plan VTE Prophylaxis will be ordered: Yes Supervising Physician Co-Signing Physician Notes Pt is a 81 y/o M with hx of CAD s/p CABG, HFrEF, Hypothyroidism, Hx of Vfib s/p ICD, HTN, HLD, BPH admitted for acute respiratory failure due to acute HF CT chest w Con 08/29/22: there is evidence of mass affect on the esophagus as a result of the enlarged L atrium. However there is a also suggestion of thickening of mucosa EGD 08/27/22: small hiatal hernia, diffuse inflammation of the stomach, Gastroesophageal flap valve classified as Hill grade II Colonoscopy 08/27/22: overall normal PE: NAD, well developed, NC in place Cardiac: Systolic murmur, normal S1/S2 Lungs: good air entry b/l with lower lobe crackles Abd: ND, NT, soft MSK: no LE edema Psych: AAOx3, normal affect A/P: Acute respiratory failure 2/2 acute on CHF (HFrEF): -BNP is elevated and CXR showed small pleural effusions -trop neg -pt received IV lasix 40mg in the ER ---- pt is Lasix pattie -depending on the VS and Cr will decide on the Lasix dose tomorrow -Echo and admit to tele -cardiology consult -Strict I/O (will put pt on condom cath) UTI: -started the pt on ceftriaxone Weight loss: -pt has had outpt work up - CT chest, colonoscopy and egd results above -likely due to mild dysphagia from mass effect on the esophagus -recommend outpt GI follow up Agree with A/P by Maria C Wbeb PA-C
[2022-09-25] MEDS ORDERED: POTASSIUM CHLORIDE CRTAB 20 MEQ TABCR PO STA (18:56)
[2022-09-25 19:05] LABS: Appearance Urine Cloudy (Clear); Bacteria Urine Automated Negative (Negative); Blood Urine Negative (Negative); Color Urine Orange; Epithelial Cell Urine Auto >30 /lpf (0-5); Glucose Urine UA Negative (Negative); Ketones Urine Trace (Negative); Leukocyte Esterase Urine Trace (Negative); Nitrite Urine Positive (Negative); Protein Urine 2+ (Negative); Specific Gravity Urine 1.028 (1.000-1.030); Urobilinogen Urine Negative (Negative)
[2022-09-25 19:11] LABS: Bilirubin Urine 1+ (Negative)
[2022-09-25 19:26] LABS: Cast Urine Automated 0 /lpf (0-5)
[2022-09-25 19:27] LABS: Calcium Oxalate Crystals Urine Present (None Prsent); Mucus Urine Present (None Prsent)
[2022-09-25] MEDS ORDERED: ACETAMINOPHEN 325 MG TAB PO PRN (20:11)
[2022-09-25] MEDS ORDERED: ONDANSETRON INJ 2 MG/ML 2 ML VIAL IV PRN (20:11)
[2022-09-25] MEDS ORDERED: POLYETHYLENE (MIRALAX) 17 GM PACK PO PRN (20:11)
[2022-09-25] MEDS ORDERED: ALBUTEROL HFA 8 GM INHALER INH PRN (20:11)
[2022-09-25] MEDS: cefTRIAXone SODIUM 1,000 MG in DEXTROSE 5% AD-VAN 50 ML IV SCH (21:08)
[2022-09-25] MEDS: METOPROLOL SUCC 50MG EXT REL TAB PO SCH (21:08)
[2022-09-25] MEDS: ISOSORBIDE MONO EXTENDED REL 30 MG TABCR PO SCH (21:08)
[2022-09-26] MEDS: LEVOTHYROXINE SODIUM 75 MCG TABLET PO SCH (06:07)
[2022-09-26] MEDS: FINASTERIDE 5 MG TAB PO SCH (08:36)
[2022-09-26] MEDS: AMIODARONE 200 MG TAB PO SCH (08:36)
[2022-09-26] MEDS: lisinopril 20 MG TAB PO SCH (08:36)
[2022-09-26] MEDS: ISOSORBIDE MONO EXTENDED REL 30 MG TABCR PO SCH (08:36)
[2022-09-26] MEDS: CETIRIZINE HCL 10 MG TABLET PO SCH (08:36)
[2022-09-26] MEDS: METOPROLOL SUCC 50MG EXT REL TAB PO SCH ×2 (08:36→20:31)
[2022-09-26] MEDS: ROSUVASTATIN CALCIUM 5 MG TAB PO SCH (08:37)
[2022-09-26] MEDS: CLOPIDOGREL BISULFATE 75 MG TAB PO SCH (08:37)
[2022-09-26] MEDS: ASPIRIN 81 MG ECTAB PO SCH (08:37)
[2022-09-26] MEDS: HEPARIN SOD 5,000 UNIT/0.5 ML VIAL SQ SCH ×2 (08:38→20:31)
[2022-09-26 08:56] LABS: Hematocrit (blood only) 34.1 % (42.0-52.0); Hemoglobin 11.4 g/dl (14.0-18.0); Mean Corpuscular Hemoglobin 30.4 pg (25.0-34.0); Mean Corpuscular Hgb Conc 33.4 g/dL (32.0-36.0); Mean Corpuscular Volume 90.9 fL (80.0-100.0); Mean Platelet Volume 11.8 fL (9.4-12.4); Platelet Count 128 K/uL (130-400); RDW Coefficient of Variation 16.5 % (11.5-14.5); RDW Standard Deviation 54.2 fL (36.4-46.3); Red Blood Count 3.75 M/uL (4.70-6.10); White Blood Count 6.88 K/ul (4.8-10.8)
[2022-09-26] MEDS ORDERED: amLODIPine BESYLATE 5 MG TAB PO SCH (09:00)
--- NOTE | 2022-09-26 09:07 | Cardiology Consultation ---
Date of Consultation September 26, 2022 Assessment & Plan (1) Acute on chronic HFrEF (heart failure with reduced ejection fraction): (2) Ischemic cardiomyopathy: (3) Pacemaker: (4) H/O cardiac arrest: (5) ICD (implantable cardioverter-defibrillator) in place: Plan IMPRESSION: Medically complex 81 year old male with acute on chronic HFrEF. Carries a history of history of ischemic cardiomyopathy with AICD placement following x2 cardiac arrest- on amiodarone, most recent AICD shock 04/2021 for vfib arrest. Echo this admission with a further decline in EF noting ~15-20%. PLAN: 1. Hyponatremia noted on blood work, possibly dilutional. Patient symptoms improving with the use of IV diuretics- continue IV Lasix 40 mg daily. 2. Trend daily BMP- potassium goal of 4.0 (supplemented this am), and mag goal of 2.0. Monitor sodium 3. Strict I&O. Daily STANDING weights. 4. Discontinue Norvasc due to recent CHF exacerbation. Will focus on GDMT titration- continue Lisinopril and metoprolol as ordered, consider transition to Entresto . 5. Amiodarone for history of VFIB arrest- continue. 6. Imdur currently being taken as 30 mg TWICE per day- will change to 60 mg daily to allow for adequate time off nitrate therapy. 7. Continue DAPT with ASA and Plavix for CAD. Case discussed with Dr. Bynum- will follow. Supervising Physician Co-Signing Physician Notes Patient was seen and personally examined. Findings and plan as well outlined above 81-year-old male with known ischemic cardiomyopathy presenting with gradual decline in functional capacity and reduced ejection fraction, acute on chronic congestive heart failure. He denies any specific cardiac complaints otherwise other than dyspnea and fluid retention. No chest pains. Has been concerned regarding ongoing weight loss since May with weight down 20 pounds but with negative evaluation. Does admit to anorexia and dysgeusia. Plan will be to continue diuretics as above. Follow renal function closely History of Present Illness Reason for Consultation: Acute on chronic CHF Requesting Physician: Marci hospitalist Attending Physician: Jesse Allison MD History of Present Illness Medically complex 81-year-old male who presented to the [facility] emergency department due to progressive shortness of breath and lower extremity edema over the last 3 months. Chest x-ray revealing small pleural effusions with dependent consolidation. Patient was given 40 mg of IV Lasix in the emergency department. As an outpatient he is on any diuretics. Echocardiogram 09/26: Revealed a severely reduced LVEF of 15 to 20%. Wall motion abnormalities consistent with ischemic cardiomyopathy with extensive inferior posterior scarring and severe hypokinesis of other segments. Moderate MR and TR. RV systolic pressure elevated at 40 to 50 mmHg. Prior echo dated 12/2021 showed an LVEF of 30 to 35%. Wall motion abnormality and valvular status similar to recent. Upon entrance into the room patient resting in bed with HOB slightly inclined. Notes an improvement in his breathing since admission- wore O2 over night, but not currently this am. Lower extremity swelling resolved. No chest pain. No palpitations or lightheadedness. Notes activity intolerance. Of note, he also endorses an unintentional weight loss of approximately 30 pounds since May. Outpatient work-up in the spring including a chest CT revealed mass effect on the esophagus. Patient notes that he had an EGD/[facility] done at [facility]- biopsies taken. Past medical history Complex CAD, hx of multiple coronary interventions, Hx of CABG , 1980 with redo in 1999 Last PCI 04/2021 with x2 KALEN to SVG Hx of cardiac arrest x2 ~2009, s/p ICD (generator change 03/2022) Hx of Vfib arrest with rescue with ICD, 04/2021- atypical symptoms. On amiodarone. Chronic systolic CHF, LVEF 30%, 04/2021 CKD stage 3 Allergies Allergy/AdvReac Type Severity Reaction Status Date / Time pantoprazole [From Protonix] Allergy Unknown Hives Verified 09/25/22 18:55 sucralfate Allergy Unknown Hives Verified 09/25/22 18:55 Home Medications Medication Instructions Recorded Confirmed Type lisinopril 20 mg tablet 20 mg PO QAM ##0 07/19/09 09/25/22 History amlodipine 5 mg tablet 5 mg PO QAM ##0 08/15/11 09/25/22 History aspirin 81 mg tablet,delayed 81 mg PO QAM 01/16/18 09/25/22 History release (Thomas Low Dose Aspirin) clopidogrel 75 mg tablet (Plavix) 75 mg PO QAM 01/16/18 09/25/22 History finasteride 5 mg tablet 5 mg PO QAM 01/16/18 09/25/22 History isosorbide mononitrate 30 mg 30 mg PO BID 01/16/18 09/25/22 History tablet,extended release 24 hr nitroglycerin 0.4 mg sublingual 1 dose sublingual UD PRN Chest Pain 01/16/18 09/25/22 History tablet (Nitrostat) amiodarone 200 mg tablet 200 mg PO DAILY 01/01/22 09/25/22 History rosuvastatin 5 mg tablet 5 mg PO DAILY 01/01/22 09/25/22 History albuterol sulfate 90 mcg/actuation 2 puff inhalation 6XD PRN 09/25/22 09/25/22 History aerosol inhaler (Proventil HFA) Shortness Of Breath Or Wheezing cetirizine 5 mg tablet 5 mg PO DAILY 09/25/22 09/25/22 History levothyroxine 75 mcg tablet 75 mcg PO DAILYBB 09/25/22 09/25/22 History metoprolol succinate 50 mg 50 mg PO BID 09/25/22 09/25/22 History tablet,extended release 24 hr Patient History Medical History BPH (benign prostatic hyperplasia) CAD (coronary artery disease) CKD (chronic kidney disease) stage 3, GFR 30-59 ml/min GERD (gastroesophageal reflux disease) H/O cardiac arrest H/O myocardial ischemia HTN (hypertension) Hypothyroidism ICD (implantable cardioverter-defibrillator) in place PLACED 2012 @ [facility] LAST CHECKED VIA REMOTE 09/20/2017 Ischemic cardiomyopathy EF 30-35% Pacemaker PLACED 2012 LAST CHECKED VIA REMOTE 09/20/2017 Prostate cancer Dx 2011, surveillance only Stable angina pectoris Systolic CHF Surgical History Encounter for insertion of cardiac resynchronization therapy defibrillator H/O two vessel coronary artery bypass graft 1990 and 1999 History of appendectomy History of cardiac cath X6 STENTS (2012 & 2014 [place]) UNSURE OF DATES -- WILL BRING STENT CARDS DOS History of tonsillectomy Family History Other Coronary heart disease Social History Smoking Status: Never smoker Second Hand Exposure: No; Do You Dip or Chew Tobacco: No; Hx Alcohol Use: No Hx Substance Use: No Preferred Language: Sami Communication Ability: Effective Specialist Managers Required: No Beliefs That Will Affect Care: None marital status: Unknown Current Living Situation: Family Feels Safe at Home: Yes Safety Concerns: Feels Safe At This Time Assistive Devices: None Review of Systems Review of Systems: All systems reviewed & are unremarkable except as noted in HPI & below Physical Exam Constitutional: WD/WN, vitals as above no acute distress Eyes: PERRL, conjunctivae normal, anicteric sclerae Neck: normal visual inspection and trachea midline Respiratory: normal respiratory effort and + cough; no respiratory distress Auscultation: + diminished lung sounds (BL bases) and + rales (bibasilar) Cardiovascular: Rate/Rhythm: regular rate and regular rhythm Heart Sounds: normal S1, normal S2 and + murmur Vessels: no JVD Extremities: + edema (trace pedal edema) Chest (Breasts): Chest: + pacemaker Gastrointestinal (Abdomen): normal bowel sounds, soft, nontender, no hepatosplenomegaly Skin: no rashes, warm and dry Psychiatric: A+Ox3, euthymic affect Results & Data Vital Signs (Past 12 Hours) Vital Signs Temp Pulse Resp BP BP Pulse Ox O2 Del Method 09/26/22 07:26 36.6 C 60 18 114/78 98 Nasal Cannula 09/26/22 03:30 37.0 C 60 16 111/67 95 Nasal Cannula 09/25/22 23:51 37.0 C 68 18 111/76 94 Nasal Cannula 09/25/22 21:43 Nasal Cannula O2 Flow Rate 09/26/22 07:26 2 09/26/22 03:30 1.0 09/25/22 23:51 2.0 09/25/22 21:43 2 Laboratory Results Cardiac Enzymes 09/25/22 09/25/22 Range/Units 17:06 17:06 AST 20 (13-39) U/L Troponin I High Sens 13.0 (0-20) pg/ml B-Natriuretic Peptide 3205 H (0-100) pg/ml Coagulation 09/25/22 09/25/22 Range/Units 17:06 17:06 PT 14.0 H (9.0-12.0) Seconds B-Natriuretic Peptide 3205 H (0-100) pg/ml CBC 09/25/22 09/26/22 Range/Units 17:06 07:44 WBC 7.71 6.88 (4.8-10.8) K/ul RBC 4.04 L 3.75 L (4.70-6.10) M/uL Hgb 12.4 L 11.4 L (14.0-18.0) g/dl Hct 36.6 L 34.1 L (42.0-52.0) % Plt Count 150 128 L (130-400) K/uL Neut # (Auto) 6.33 (1.40-6.50) K/uL Lymph # (Auto) 0.57 L (1.2-3.4) K/uL [place] # (Auto) 0.67 H (0.11-0.59) K/uL Eos # (Auto) 0.06 (0-0.50) K/uL Baso # (Auto) 0.03 (0-0.2) K/uL Comprehensive Metabolic Panel 09/25/22 09/26/22 Range/Units 17:06 07:44 Sodium 132 L 134 L (136-145) mmol/L Potassium 3.4 L 3.4 L (3.5-5.1) mmol/L Chloride 99 100 (98-107) mmol/L Carbon Dioxide 23 25 (21-32) mmol/L BUN 23 17 (6-23) mg/dl Creatinine 1.00 0.92 (0.6-1.4) mg/dl Glucose 125 H 85 (70-99(Fasting)) mg/dl Calcium 8.6 8.7 (8.6-10.3) mg/dl AST 20 (13-39) U/L ALT 23 (7-52) U/L Alkaline Phosphatase 72 (34-104) U/L Total Protein 7.2 (6.0-8.3) gm/dl Albumin 3.6 (3.4-5.0) gm/dl Intake and Output 09/25/22 09/26/22 09/26/22 22:59 06:59 14:59 Intake Total 50 / 150 100 / 150 Output Total 400 / 401 200 / 200 Balance 49 / -251 -300 / -251 -200 / -200 Intake: IV 50 / 50 cefTRIAXone SODIUM 1,000 mg In 50 / 50 Dextrose 5% Ad-Van 50 ml @ 100 mls/hr IV Q24H [facility] Rx#:[id number] Oral 100 / 100 Output: Urine 400 / 400 200 / 200 # Bowel Movements Other: # Unmeasured Voids 1 1 Weight 56.6 kg 55.3 kg Weight Measurement Method Built in [facility]
[2022-09-26 09:08] LABS: BUN Creatinine Ratio 18.5 (10-20); Calcium 8.7 mg/dl (8.6-10.3); Creatinine Clr Calc Pharmacy 49.5 ml/min; Est GFR (African American) 90.7 ml/min; Est GFR (Non-African American) 78.3 ml/min; Potassium 3.4 mmol/L (3.5-5.1)
--- NOTE | 2022-09-26 10:01 | Electrocardiogram Report ---
Test Reason : Blood Pressure : / mmHG Vent. Rate : 061 BPM Atrial Rate : 000 BPM P-R Int : 000 ms QRS Dur : 178 ms QT Int : 508 ms P-R-T Axes : 000 000 176 degrees QTc Int : 511 ms Sinus rhythm with demand atrial pacing Left bundle branch block Abnormal ECG Confirmed by Corbin Torres ([id number] on 09/26/2022 10:00:54 AM Referred By: REFERRED SELF Confirmed By:Alfie Torres
[2022-09-26] MEDS ORDERED: POTASSIUM CHLORIDE CRTAB 20 MEQ TABCR PO ONE (10:03)
--- NOTE | 2022-09-26 10:29 | Electrocardiogram Report ---
Test Reason : Blood Pressure : / mmHG Vent. Rate : 061 BPM Atrial Rate : 061 BPM P-R Int : 274 ms QRS Dur : 182 ms QT Int : 508 ms P-R-T Axes : -07 003 168 degrees QTc Int : 511 ms Atrial-paced rhythm with prolonged AV conduction Left bundle branch block Abnormal ECG When compared with ECG of 25-SEP-2022 16:55, (unconfirmed) Electronic atrial pacemaker has replaced Wide QRS rhythm Confirmed by Corbin Torres ([id number] on 09/26/2022 10:29:10 AM Referred By: REFERRED SELF Confirmed By:Alfie Torres
[2022-09-26] MEDS: FUROSEMIDE 40 MG/4 ML VIAL IV SCH (11:12)
--- NOTE | 2022-09-26 16:35 | Hospitalist Progress Note ---
Date of Service September 26, 2022 Assessment & Plan (1) Acute exacerbation of CHF (congestive heart failure): (2) Elevated brain natriuretic peptide (BNP) level: (3) Ischemic cardiomyopathy: (4) H/O cardiac arrest: (5) ICD (implantable cardioverter-defibrillator) in place: (6) Acute hypokalemia: (7) CAD (coronary artery disease): (8) HTN (hypertension): (9) CKD (chronic kidney disease) stage 3, GFR 30-59 ml/min: (10) Hypothyroidism: Plan Patient is an 81 yr male with H/O Ischemic cardiomyopathy with chronic systolic heart failure and an estimated left ventricular ejection fraction of 30%, severe CAD s/p CABG and most recently stent in 04/2021 with KALEN, history of V-fib and V. tach status post AICD updated in Mar 2022, hypothyroidism, dyslipidemia, hypertension, BPH, statin intolerance and other medical problems listed below who presents with progressively worsening shortness of breath over the past few weeks. Acute on chronic Systolic heart failure -CXR:Cardiomegaly and AICD with evidence of congestive failure. Small pleural effusions with dependent consolidation. --ECHO: Aortic valve sclerosis mild, without significant aortic valvular stenosis. Left ventricle is borderline dilated. Apical wall motion abnormality may reflect pacemaker activation. Wall motion abnormalities are present consistent with ischemic cardiomyopathy with extensive inferoposterior scar and severe hypokinesis of other segments. EF 15 to 20%. Moderate mitral and tricuspid regurgitation. Right ventricle systolic pressure is elevated at 40 to 50 mmHg. --BNP 3205 -- Continue IV Lasix 40 mg daily Monitor I's and O's, daily weight Appreciate cardiology input Continue metoprolol, lisinopril, Imdur Hyponatremia Likely secondary to volume overload Monitor sodium levels Hypokalemia Replete electrolytes as needed Weight loss Per Epic, 23 lb unintentional weight loss since May, per chart review Outpatient CT chest revealing evidence of mass effect on the esophagus as a result of the enlarged left atrium, however, there is also suggestion of thickening of the mucosa above this level Mass effect likely contributing to appetite decline Dietitian consulted CAD H/o CABG, KALEN in 2020 Continue Toprol, aspirin, Plavix, Imdur, statin H/o Vfib, vtach cardiac arrest AICD updated in Mar 2022. 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 22.3 Control Technician Consulted DVT Px: SQ heparin Code status: FULL CODE Admission and Anticipated Discharge Date Admission Date: September 25, 2022 Subjective Patient is seen and examined at bedside Reports dyspnea on exertion, chest congestion, leg edema Denies any chest pain, nausea, vomiting, abdominal pain Discussed with cardiology today No other complaints Saturating low 90s on room air Review of Systems Review of Systems: All systems reviewed & are unremarkable except as noted in Subjective Physical Exam Physical Exam: Physical Exam: Vitals signs as noted above General Appearance:Thin, frail, no apparent distress Head: normocephalic, Atraumatic Eyes: normal inspection, EOMI Neck: supple, Trachea midline Respiratory/Chest: Decreased breath sounds, +rales, No accessory muscle use Cardiovascular: S1, S2, + murmur Abdomen/GI:Soft, Non tender, Bowel sounds present Extremities/Musculoskeletal:normal inspection, no edema Neurologic/Psych:AAOX3, grossly no focal neurological deficits Skin: normal color, warm Results & Data Results & Data Vital Signs (Past 12 Hours) Vital Signs Temp Pulse Resp BP BP Pulse Ox O2 Del Method 09/26/22 15:31 36.6 C 66 17 110/66 91 Room Air 09/26/22 10:00 Room Air 09/26/22 11:11 36.8 C 62 18 109/65 92 Room Air 09/26/22 07:26 36.6 C 60 18 114/78 98 Nasal Cannula O2 Flow Rate 09/26/22 15:31 09/26/22 10:00 09/26/22 11:11 09/26/22 07:26 2 Laboratory Results Short CBC 09/25/22 09/26/22 Range/Units 17:06 07:44 WBC 7.71 6.88 (4.8-10.8) K/ul Hgb 12.4 L 11.4 L (14.0-18.0) g/dl Hct 36.6 L 34.1 L (42.0-52.0) % Plt Count 150 128 L (130-400) K/uL BMP 09/25/22 09/26/22 17:06 07:44 Sodium 132 L 134 L Potassium 3.4 L 3.4 L Chloride 99 100 Carbon Dioxide 23 25 BUN 23 17 Creatinine 1.00 0.92 Glucose 125 H 85 Calcium 8.6 8.7 Liver Function 09/25/22 Range/Units 17:06 Total Bilirubin 1.3 H (0.2-1.0) mg/dl AST 20 (13-39) U/L ALT 23 (7-52) U/L Alkaline Phosphatase 72 (34-104) U/L Albumin 3.6 (3.4-5.0) gm/dl Urine 09/25/22 Range/Units 18:40 Urine Color [place] Urine Appearance Cloudy A (Clear) Urine pH 5.0 (4.5-7.5) Ur Specific [place] 1.028 (1.000-1.030) Urine Protein 2+ H (Negative) Urine Glucose (UA) Negative (Negative)
[2022-09-26] MEDS: cefTRIAXone SODIUM 1,000 MG in DEXTROSE 5% AD-VAN 50 ML IV SCH (20:28)
[2022-09-27] MEDS: LEVOTHYROXINE SODIUM 75 MCG TABLET PO SCH (05:57)
[2022-09-27 07:27] LABS: Hematocrit (blood only) 32.6 % (42.0-52.0); Mean Corpuscular Hemoglobin 30.6 pg (25.0-34.0); Mean Corpuscular Hgb Conc 33.7 g/dL (32.0-36.0); Mean Corpuscular Volume 90.6 fL (80.0-100.0); Mean Platelet Volume 11.9 fL (9.4-12.4); Platelet Count 127 K/uL (130-400); RDW Coefficient of Variation 16.6 % (11.5-14.5); RDW Standard Deviation 55.1 fL (36.4-46.3); White Blood Count 5.96 K/ul (4.8-10.8)
[2022-09-27 07:39] LABS: BUN Creatinine Ratio 19.3 (10-20); Calcium 8.6 mg/dl (8.6-10.3); Creatinine Clr Calc Pharmacy 39.9 ml/min; Est GFR (Non-African American) 60.4 ml/min; Magnesium 1.8 mg/dl (1.7-2.4); Potassium 3.7 mmol/L (3.5-5.1)
--- NOTE | 2022-09-27 08:24 | Cardiology Progress Note ---
Date of Service September 27, 2022 Assessment & Plan (1) Acute on chronic HFrEF (heart failure with reduced ejection fraction): (2) Ischemic cardiomyopathy: (3) Pacemaker: (4) H/O cardiac arrest: (5) ICD (implantable cardioverter-defibrillator) in place: Plan IMPRESSION: Medically complex 81 year old male with acute on chronic HFrEF. Carries a history of history of ischemic cardiomyopathy with AICD placement following x2 cardiac arrest- on amiodarone, most recent AICD shock 04/2021 for vfib arrest. Echo this admission with a further decline in EF noting ~15-20%. PLAN: 1. Hyponatremia noted on blood work, possibly dilutional. Patient symptoms improving with the use of IV diuretics- will give and addition 40 mg IV Lasix this afternoon. 2. Trend daily BMP- potassium goal of 4.0 (supplemented this am), and mag goal of 2.0. Unable to add Aldactone at this time due to hyponatremia- will continue to monitor sodium level. 3. Strict I&O. Daily STANDING weights. 4. Discontinue Norvasc due to recent CHF exacerbation. Will focus on GDMT titration- continue Lisinopril and metoprolol as ordered, consider transition to Entresto . 5. Amiodarone for history of VFIB arrest- continue. 6. Imdur currently being taken as 30 mg TWICE per day- will change to 60 mg daily to allow for adequate time off nitrate therapy. 7. Continue DAPT with ASA and Plavix for CAD. Case discussed with Dr. Bynum- will follow. Admission and Anticipated Discharge Date Admission Date: September 25, 2022 Supervising Physician Co-Signing Physician Notes Patient seen and assessed as above. Slowly making progress but still room to improve volume status. Continue to adjust medical therapies with inpatient foll owing on telemetry as diuresis continue Subjective Medically complex 81-year-old male who initially presented to [facility] due to shortness of breath and lower extremity edema-found to be in acute on chronic CHF Carries a history of ischemic cardiomyopathy with AICD placement following x2 cardiac arrest, on amiodarone. LVEF at baseline approximately 30 to 35%, further reduced on inpatient echo of approximately 15 to 20% 09/26: Diuresed with 40 mg of IV Lasix Norvasc discontinued. 09/27: Telemetry: Paced 60s Weight: 58.2 >> 58 kg I&O: -1.3L Upon entrance into the room patient resting comfortably in bed. COntinues to have dyspnea with minimal activity- asymptomatic at rest. Notes mild orthopnea. No chest pain. Lower extremity edema resolved. No lightheadedness. Review of Systems Review of Systems: All systems reviewed & are unremarkable except as noted in HPI & below Physical Exam Constitutional: WD/WN, vitals as above no acute distress Eyes: PERRL, conjunctivae normal, anicteric sclerae Neck: normal visual inspection and trachea midline Respiratory: normal respiratory effort and + cough; no respiratory distress Auscultation: + diminished lung sounds (BL bases) and + rales (bibasilar) Cardiovascular: Rate/Rhythm: regular rate and regular rhythm Heart Sounds: normal S1, normal S2 and + murmur Vessels: no JVD Extremities: no edema Chest (Breasts): Chest: + pacemaker Gastrointestinal (Abdomen): normal bowel sounds, soft, nontender, no he patosplenomegaly Skin: no rashes, warm and dry Psychiatric: A+Ox3, euthymic affect Results & Data Vital Signs (Past 12 Hours) Vital Signs Temp Pulse Pulse Resp BP Pulse Ox O2 Del Method 09/27/22 07:56 65 09/27/22 07:36 36.7 C 64 18 112/73 93 Nasal Cannula 09/27/22 03:00 36.7 C 68 16 102/67 99 Room Air 09/26/22 23:00 36.7 C 63 19 103/68 97 Room Air O2 Flow Rate 09/27/22 07:56 09/27/22 07:36 2 09/27/22 03:00 09/26/22 23:00 Laboratory Results CBC 09/26/22 09/27/22 Range/Units 07:44 06:43 WBC 6.88 5.96 (4.8-10.8) K/ul RBC 3.75 L 3.60 L (4.70-6.10) M/uL Hgb 11.4 L 11.0 L (14.0-18.0) g/dl Hct 34.1 L 32.6 L (42.0-52.0) % Plt Count 128 L 127 L (130-400) K/uL Comprehensive Metabolic Panel 09/26/22 09/27/22 Range/Units 07:44 06:43 Sodium 134 L 134 L (136-145) mmol/L Potassium 3.4 L 3.7 (3.5-5.1) mmol/L Chloride 100 100 (98-107) mmol/L Carbon Dioxide 25 26 (21-32) mmol/L BUN 17 22 (6-23) mg/dl Creatinine 0.92 1.14 (0.6-1.4) mg/dl Glucose 85 82 (70-99(Fasting)) mg/dl Calcium 8.7 8.6 (8.6-10.3) mg/dl Intake and Output 09/26/22 09/27/22 09/27/22 22:59 06:59 14:59 Intake Total 50 / 50 Output Total 350 / 1150 100 / 1150 Balance -300 / -1100 -100 / -1100 Intake: IV 50 / 50 cefTRIAXone SODIUM 1,000 mg In 50 / 50 Dextrose 5% Ad-Van 50 ml @ 100 mls/hr IV Q24H [facility] Rx#:[id number] Output: Urine 350 / 1150 100 / 1150 Other: Weight 58 kg
[2022-09-27] MEDS: AMIODARONE 200 MG TAB PO SCH (08:48)
[2022-09-27] MEDS: CETIRIZINE HCL 10 MG TABLET PO SCH (08:49)
[2022-09-27] MEDS: ASPIRIN 81 MG ECTAB PO SCH (08:49)
[2022-09-27] MEDS: CLOPIDOGREL BISULFATE 75 MG TAB PO SCH (08:50)
[2022-09-27] MEDS: FINASTERIDE 5 MG TAB PO SCH (08:51)
[2022-09-27] MEDS: lisinopril 20 MG TAB PO SCH (08:51)
[2022-09-27] MEDS: ROSUVASTATIN CALCIUM 5 MG TAB PO SCH (08:52)
[2022-09-27] MEDS: METOPROLOL SUCC 50MG EXT REL TAB PO SCH ×2 (08:52→21:37)
[2022-09-27] MEDS: FUROSEMIDE 40 MG/4 ML VIAL IV SCH (09:00)
[2022-09-27] MEDS ORDERED: ISOSORBIDE MONO EXTENDED REL 60 MG TABCR PO SCH (09:00)
[2022-09-27] MEDS ORDERED: POTASSIUM CHLORIDE CRTAB 20 MEQ TABCR PO SCH (09:00)
[2022-09-27] MEDS: HEPARIN SOD 5,000 UNIT/0.5 ML VIAL SQ SCH ×2 (09:02→21:38)
[2022-09-27] MEDS ORDERED: FUROSEMIDE 40 MG/4 ML VIAL IV ONE (14:00)
--- NOTE | 2022-09-27 19:02 | Hospitalist Progress Note ---
Date of Service September 27, 2022 Assessment & Plan (1) Acute exacerbation of CHF (congestive heart failure): (2) Elevated brain natriuretic peptide (BNP) level: (3) Ischemic cardiomyopathy: (4) H/O cardiac arrest: (5) ICD (implantable cardioverter-defibrillator) in place: (6) Acute hypokalemia: (7) CAD (coronary artery disease): (8) HTN (hypertension): (9) CKD (chronic kidney disease) stage 3, GFR 30-59 ml/min: (10) Hypothyroidism: Plan Patient is an 81 yr male with H/O Ischemic cardiomyopathy with chronic systolic heart failure and an estimated left ventricular ejection fraction of 30%, severe CAD s/p CABG and most recently stent in 04/2021 with KALEN, history of V-fib and V. tach status post AICD updated in Mar 2022, hypothyroidism, dyslipidemia, hypertension, BPH, statin intolerance and other medical problems listed below who presents with progressively worsening shortness of breath over the past few weeks. Acute on chronic Systolic heart failure -CXR:Cardiomegaly and AICD with evidence of congestive failure. Small pleural effusions with dependent consolidation. --ECHO: Aortic valve sclerosis mild, without significant aortic valvular stenosis. Left ventricle is borderline dilated. Apical wall motion abnormality may reflect pacemaker activation. Wall motion abnormalities are present consistent with ischemic cardiomyopathy with extensive inferoposterior scar and severe hypokinesis of other segments. EF 15 to 20%. Moderate mitral and tricuspid regurgitation. Right ventricle systolic pressure is elevated at 40 to 50 mmHg. --BNP 3205 -- Continue IV Lasix 40 mg daily Monitor I's and O's, daily weight Appreciate cardiology input Continue metoprolol, lisinopril, Imdur Amlodipine discontinued Continue current management Needs follow-up with cardiology upon discharge Hyponatremia Likely secondary to volume overload Monitor sodium levels Sodium level improved to 134 Hypokalemia Replete electrolytes as needed Resolved Weight loss Per Epic, 23 lb unintentional weight loss since May, per chart review Outpatient CT chest revealing evidence of mass effect on the esophagus as a result of the enlarged left atrium, however, there is also suggestion of thickening of the mucosa above this level Mass effect likely contributing to appetite decline Dietitian consulted CAD H/o CABG, KALEN in 2020 Continue Toprol, aspirin, Plavix, Imdur, statin H/o Vfib, vtach cardiac arrest AICD updated in Mar 2022. 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 22.3 Dispensing And Measuring Optician Consulted DVT Px: SQ heparin Code status: FULL CODE Admission and Anticipated Discharge Date Admission Date: September 25, 2022 Subjective Patient is seen and examined at bedside Leg edema much improved No new complaints Dyspnea on exertion slowly improving Denies any chest congestion today Denies any chest pain, nausea, vomiting, abdominal pain Review of Systems Review of Systems: All systems reviewed & are unremarkable except as noted in Subjective Physical Exam Physical Exam: Physical Exam: Vitals signs as noted above General Appearance:Thin, frail, no apparent distress Head: normocephalic, Atraumatic Eyes: normal inspection, EOMI Neck: supple, Trachea midline Respiratory/Chest: Decreased breath sounds, +R basal rales, No accessory muscle use Cardiovascular: S1, S2, + murmur Abdomen/GI:Soft, Non tender, Bowel sounds present Extremities/Musculoskeletal:normal inspection, no edema Neurologic/Psych:AAOX3, grossly no focal neurological deficits Skin: normal color, warm Results & Data Results & Data Vital Signs (Past 12 Hours) Vital Signs Temp Pulse Pulse Resp BP BP Pulse Ox 09/27/22 07:30 09/27/22 16:47 81 09/27/22 15:20 37.0 C 65 18 95/58 L 93 09/27/22 10:49 36.5 C 68 19 112/79 94 09/27/22 07:56 65 09/27/22 07:36 36.7 C 64 18 112/73 93 O2 Del Method O2 Flow Rate 09/27/22 07:30 Room Air 09/27/22 16:47 09/27/22 15:20 Room Air 09/27/22 10:49 Room Air 09/27/22 07:56 09/27/22 07:36 Nasal Cannula 2 Laboratory Results Short CBC 09/27/22 Range/Units 06:43 WBC 5.96 (4.8-10.8) K/ul Hgb 11.0 L (14.0-18.0) g/dl Hct 32.6 L (42.0-52.0) % Plt Count 127 L (130-400) K/uL BMP 09/27/22 06:43 Sodium 134 L Potassium 3.7 Chloride 100 Carbon Dioxide 26 BUN 22 Creatinine 1.14 Glucose 82 Calcium 8.6
[2022-09-27] MEDS: cefTRIAXone SODIUM 1,000 MG in DEXTROSE 5% AD-VAN 50 ML IV SCH (23:52)
[2022-09-28] MEDS: LEVOTHYROXINE SODIUM 75 MCG TABLET PO SCH (05:56)
[2022-09-28 06:55] LABS: BUN Creatinine Ratio 22.1 (10-20); Calcium 8.5 mg/dl (8.6-10.3); Creatinine Clr Calc Pharmacy 40.3 ml/min; Est GFR (African American) 70.8 ml/min; Est GFR (Non-African American) 61.1 ml/min; Potassium 3.4 mmol/L (3.5-5.1)
--- NOTE | 2022-09-28 07:18 | Cardiology Progress Note ---
Date of Service September 28, 2022 Assessment & Plan (1) Acute on chronic HFrEF (heart failure with reduced ejection fraction): (2) Ischemic cardiomyopathy: (3) Pacemaker: (4) H/O cardiac arrest: (5) ICD (implantable cardioverter-defibrillator) in place: Plan IMPRESSION: Medically complex 81 year old male with acute on chronic HFrEF. Carries a history of history of ischemic cardiomyopathy with AICD placement following x2 cardiac arrest- on amiodarone, most recent AICD shock 04/2021 for vfib arrest. Echo this admission with a further decline in EF noting ~15-20%. PLAN: 1. Patient remains mildly hypervolemic. Will give an addition 40 mg IV lasix this afternoon. Ongoing mild hyponatremia- renal function otherwise stable with continued IV diuresis. 2. Trend daily BMP- potassium goal of 4.0 (supplemented this am and increased to 40 meq BID), and mag goal of 2.0. Unable to add Aldactone at this time due to hyponatremia- will continue to monitor sodium level. 3. Strict I&O. Daily STANDING weights. 4. Discontinue Norvasc due to recent CHF exacerbation. Will focus on GDMT titration, will hold lisinopril at this time due to hypotension- consider restarting at lower dose pending clinic course. Continue metoprolol as ordered 5. Amiodarone for history of VFIB arrest- continue. 6. Imdur currently being taken as 30 mg TWICE per day- will change to 60 mg daily to allow for adequate time off nitrate therapy- holding currently due to hypotension 7. Continue DAPT with ASA and Plavix for CAD. Case discussed with Dr. Bynum- will follow. Admission and Anticipated Discharge Date Admission Date: September 25, 2022 Supervising Physician Co-Signing Physician Notes Patient seen and assessed as above. Slowly making progress but still room to improve volume status. Rales audible on exam. Hemodynamic stable with blood pressure trending downward. Lisinopril and isosorbide mononitrate on hold Add spironolactone 12.5 mg/day given potassium demand We will consider restarting lisinopril versus low-dose Entresto as diuresis progresses Subjective Medically complex 81-year-old male who initially presented to [facility] due to shortness of breath and lower extremity edema-found to be in acute on chronic CHF Carries a history of ischemic cardiomyopathy with AICD placement following x2 cardiac arrest, on amiodarone. LVEF at baseline approximately 30 to 35%, further reduced on inpatient echo of approximately 15 to 20% 09/26: Diuresed with 40 mg of IV Lasix Norvasc discontinued. 09/27: Telemetry: Paced 60s Weight: 58.2 >> 58 kg I&O: -1.3L Continued diuresis with IV Lasix 40 mg daily. 09/28: Telemetry: Paced 60s I&O: -1.7 L Weight: 58.2 >> 57 kg Potassium low at 3.4 Patient resting in bed. No acute concerns. No chest pain, shortness of breath improved. No orthopnea, no lower extremity edema. Notes ongoing weakenss. Review of Systems Review of Systems: All systems reviewed & are unremarkable except as noted in HPI & below Physical Exam Constitutional: WD/WN, vitals as above no acute distress Eyes: PERRL, conjunctivae normal, anicteric sclerae Neck: normal visual inspection and trachea midline Respiratory: normal respiratory effort and + cough; no respiratory distress Auscultation: + diminished lung sounds (BL bases) and + rales (bibasilar) Cardiovascular: Rate/Rhythm: regular rate and regular rhythm Heart Sounds: normal S1, normal S2 and + murmur Vessels: no JVD Extremities: no edema Chest (Breasts): Chest: + pacemaker Gastrointestinal (Abdomen): normal bowel sounds, soft, nontender, no hepatosplenomegaly Skin: no rashes, warm and dry Psychiatric: A+Ox3, euthymic affect Results & Data Vital Signs (Past 12 Hours) Vital Signs Temp Pulse Pulse Resp BP BP Pulse Ox 09/27/22 22:00 60 09/28/22 03:00 36.6 C 66 21 107/64 98 09/27/22 23:00 36.8 C 62 18 99/61 L 95 09/27/22 21:37 72 99/61 L O2 Del Method 09/27/22 22:00 09/28/22 03:00 Room Air 09/27/22 23:00 Room Air 09/27/22 21:37 Laboratory Results Laboratory Results - last 24 hr 09/28/22 05:52 Sodium 134 L Potassium 3.4 L Chloride 98 Carbon Dioxide 27 Anion Gap 9 BUN 25 H Creatinine 1.13 Est Cr Clr Drug Dosing 40.3 Est GFR ( Amer) 70.8 Est GFR (Non-Af Amer) 61.1 BUN/Creatinine Ratio 22.1 H Glucose 75 Calcium 8.5 L
[2022-09-28] MEDS: POTASSIUM CHLORIDE CRTAB 20 MEQ TABCR PO SCH ×2 (08:24→17:23)
[2022-09-28] MEDS: ROSUVASTATIN CALCIUM 5 MG TAB PO SCH (08:28)
[2022-09-28] MEDS: AMIODARONE 200 MG TAB PO SCH (08:29)
[2022-09-28] MEDS: CLOPIDOGREL BISULFATE 75 MG TAB PO SCH (08:30)
[2022-09-28] MEDS: ASPIRIN 81 MG ECTAB PO SCH (08:30)
[2022-09-28] MEDS: FINASTERIDE 5 MG TAB PO SCH (08:30)
[2022-09-28] MEDS: CETIRIZINE HCL 10 MG TABLET PO SCH (08:30)
[2022-09-28] MEDS: METOPROLOL SUCC 50MG EXT REL TAB PO SCH ×2 (08:31→21:32)
[2022-09-28] MEDS: FUROSEMIDE 40 MG/4 ML VIAL IV SCH (08:35)
[2022-09-28] MEDS: HEPARIN SOD 5,000 UNIT/0.5 ML VIAL SQ SCH ×2 (08:38→21:32)
[2022-09-28] MEDS: SPIRONOLACTONE 12.5 MG TAB PO SCH (12:39)
[2022-09-28] MEDS ORDERED: FUROSEMIDE 40 MG/4 ML VIAL IV ONE (14:00)
--- NOTE | 2022-09-28 18:07 | Hospitalist Progress Note ---
Date of Service September 28, 2022 Assessment & Plan (1) Acute exacerbation of CHF (congestive heart failure): (2) Elevated brain natriuretic peptide (BNP) level: (3) Ischemic cardiomyopathy: (4) H/O cardiac arrest: (5) ICD (implantable cardioverter-defibrillator) in place: (6) Acute hypokalemia: (7) CAD (coronary artery disease): (8) HTN (hypertension): (9) CKD (chronic kidney disease) stage 3, GFR 30-59 ml/min: (10) Hypothyroidism: Plan Patient is an 81 yr male with H/O Ischemic cardiomyopathy with chronic systolic heart failure and an estimated left ventricular ejection fraction of 30%, severe CAD s/p CABG and most recently stent in 04/2021 with KALEN, history of V-fib and V. tach status post AICD updated in Mar 2022, hypothyroidism, dyslipidemia, hypertension, BPH, statin intolerance and other medical problems listed below who presents with progressively worsening shortness of breath over the past few weeks. Acute on chronic Systolic heart failure -CXR:Cardiomegaly and AICD with evidence of congestive failure. Small pleural effusions with dependent consolidation. --ECHO: Aortic valve sclerosis mild, without significant aortic valvular stenosis. Left ventricle is borderline dilated. Apical wall motion abnormality may reflect pacemaker activation. Wall motion abnormalities are present consistent with ischemic cardiomyopathy with extensive inferoposterior scar and severe hypokinesis of other segments. EF 15 to 20%. Moderate mitral and tricuspid regurgitation. Right ventricle systolic pressure is elevated at 40 to 50 mmHg. --BNP 3205 -- Continue IV Lasix 40 mg daily Monitor I's and O's, daily weight Appreciate cardiology input Continue metoprolol lisinopril, Imdur held due to low BP Amlodipine discontinued Needs follow-up with cardiology upon discharge Continue IV diuresis per cardiology Also added on Aldactone 12 mg daily Hyponatremia Likely secondary to volume overload Monitor sodium levels Sodium level improved to 134 Hypokalemia Replete electrolytes as needed Resolved Weight loss Per Epic, 23 lb unintentional weight loss since May, per chart review Outpatient CT chest revealing evidence of mass effect on the esophagus as a result of the enlarged left atrium, however, there is also suggestion of thickening of the mucosa above this level Mass effect likely contributing to appetite decline Dietitian consulted CAD H/o CABG, KALEN in 2020 Continue Toprol, aspirin, Plavix, Imdur, statin H/o Vfib, vtach cardiac arrest AICD updated in Mar 2022. 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 22.3 Undercollar Maker Consulted DVT Px: SQ heparin Code status: FULL CODE Admission and Anticipated Discharge Date Admission Date: September 25, 2022 Subjective Patient is seen and examined at bedside No new complaints Denies any chest pain, dyspnea, dizziness, nausea, abdominal pain Leg edema resolved No other complaints Saturating well on room air Review of Systems Review of Systems: All systems reviewed & are unremarkable except as noted in Subjective Physical Exam Physical Exam: Physical Exam: Vitals signs as noted above General Appearance:Thin, frail, no apparent distress Head: normocephalic, Atraumatic Eyes: normal inspection, EOMI Neck: supple, Trachea midline Respiratory/Chest: Decreased breath sounds, CTA, No accessory muscle use Cardiovascular: S1, S2, + murmur Abdomen/GI:Soft, Non tender, Bowel sounds present Extremities/Musculoskeletal:normal inspection, no edema Neurologic/Psych:AAOX3, grossly no focal neurological deficits Skin: normal color, warm Results & Data Results & Data Vital Signs (Past 12 Hours) Vital Signs Temp Pulse Pulse Resp BP Pulse Ox O2 Del Method 09/28/22 15:56 36.6 C 68 18 95/65 L 91 Room Air 09/28/22 15:25 73 09/28/22 08:00 Room Air 09/28/22 12:19 36.8 C 69 19 98/63 L 91 Room Air 09/28/22 07:57 36.8 C 63 19 113/70 97 Room Air 09/28/22 07:27 64 Laboratory Results [facility] 09/28/22 05:52 Sodium 134 L Potassium 3.4 L Chloride 98 Carbon Dioxide 27 BUN 25 H Creatinine 1.13 Glucose 75 Calcium 8.5 L
[2022-09-29] MEDS: LEVOTHYROXINE SODIUM 75 MCG TABLET PO SCH (06:23)
[2022-09-29 06:49] LABS: Hemoglobin 11.4 g/dl (14.0-18.0); Mean Corpuscular Hemoglobin 29.9 pg (25.0-34.0); Mean Corpuscular Hgb Conc 32.6 g/dL (32.0-36.0); Mean Corpuscular Volume 91.9 fL (80.0-100.0); Mean Platelet Volume 10.9 fL (9.4-12.4); Platelet Count 146 K/uL (130-400); RDW Coefficient of Variation 16.8 % (11.5-14.5); RDW Standard Deviation 56.1 fL (36.4-46.3); Red Blood Count 3.81 M/uL (4.70-6.10); White Blood Count 5.87 K/ul (4.8-10.8)
[2022-09-29 07:09] LABS: BUN Creatinine Ratio 23.8 (10-20); Calcium 8.6 mg/dl (8.6-10.3); Creatinine Clr Calc Pharmacy 37.3 ml/min; Est GFR (African American) 64.5 ml/min; Est GFR (Non-African American) 55.6 ml/min; Magnesium 1.8 mg/dl (1.7-2.4); Potassium 4.3 mmol/L (3.5-5.1)
[2022-09-29] MEDS: HEPARIN SOD 5,000 UNIT/0.5 ML VIAL SQ SCH ×3 (09:16→20:30)
[2022-09-29] MEDS: AMIODARONE 200 MG TAB PO SCH (09:17)
[2022-09-29] MEDS: CETIRIZINE HCL 10 MG TABLET PO SCH (09:17)
[2022-09-29] MEDS: SPIRONOLACTONE 12.5 MG TAB PO SCH (09:17)
[2022-09-29] MEDS: ROSUVASTATIN CALCIUM 5 MG TAB PO SCH (09:17)
[2022-09-29] MEDS: CLOPIDOGREL BISULFATE 75 MG TAB PO SCH (09:18)
[2022-09-29] MEDS: FUROSEMIDE 40 MG/4 ML VIAL IV SCH (09:18)
[2022-09-29] MEDS: ASPIRIN 81 MG ECTAB PO SCH (09:18)
[2022-09-29] MEDS: FINASTERIDE 5 MG TAB PO SCH (09:18)
[2022-09-29] MEDS: METOPROLOL SUCC 50MG EXT REL TAB PO SCH ×2 (09:18→20:30)
[2022-09-29] MEDS: POTASSIUM CHLORIDE CRTAB 20 MEQ TABCR PO SCH ×2 (09:31→16:55)
--- NOTE | 2022-09-29 14:53 | Cardiology Progress Note ---
Date of Service September 29, 2022 Assessment & Plan (1) Acute on chronic HFrEF (heart failure with reduced ejection fraction): (2) Ischemic cardiomyopathy: (3) Pacemaker: (4) H/O cardiac arrest: (5) ICD (implantable cardioverter-defibrillator) in place: Plan IMPRESSION: Medically complex 81 year old male with acute on chronic HFrEF. Carries a history of history of ischemic cardiomyopathy with AICD placement following x2 cardiac arrest- on amiodarone, most recent AICD shock 04/2021 for vfib arrest. Echo this admission with a further decline in EF noting ~15-20%. PLAN: Continue DAPT with ASA and Plavix for CAD. Change to oral torsemide am of 09/29/22 Continue spironolactone 12.5 mg daily Imdur and lisinopril are on hold due to low blood pressure with SBPs in the 90s to low 100s. Continue metoprolol and amiodarone-has h/o VT arrest. Has dual chamber AICD. Given decline in LVEF from 30-35% in 12/2021 to 15-20% now, and development of LBBB QRS duration in range of 130-180 ms future considerations include upgrade to a Biventricular CHIEF CRUISER capable device. Continue SQ heparin for DVT prophylaxis. Admission and Anticipated Discharge Date Admission Date: September 25, 2022 Subjective Patient seen in cardiology follow up. No acute distress. Feels like he is better from a shortness of breath standpoint compared to when he was admitted. Telemetry reveals SR in the 60s with LBBB. Review of Systems Review of Systems: All systems reviewed & are unremarkable except as noted in HPI & below Physical Exam Constitutional: WD/WN, vitals as above no acute distress Eyes: PERRL, conjunctivae normal, anicteric sclerae Neck: normal visual inspection and trachea midline Respiratory: normal respiratory effort and + cough; no respiratory distress Auscultation: + diminished lung sounds (BL bases) and + rales (bibasilar) Cardiovascular: Rate/Rhythm: regular rate and regular rhythm Heart Sounds: normal S1, normal S2 and + murmur Vessels: no JVD Extremities: no edema Chest (Breasts): Chest: + pacemaker Gastrointestinal (Abdomen): normal bowel sounds, soft, nontender, no hepatosplenomegaly Skin: no rashes, warm and dry Psychiatric: A+Ox3, euthymic affect Results & Data Vital Signs (Past 12 Hours) Vital Signs Temp Pulse Resp BP Pulse Ox O2 Del Method O2 Flow Rate 09/29/22 08:00 Room Air, Nasal Cannula 09/29/22 11:03 36.6 C 63 18 95/64 L 93 Room Air 09/29/22 07:49 37.3 C 60 18 102/61 99 Nasal Cannula 2 09/29/22 04:32 36.9 C 62 20 112/63 98 Nasal Cannula 2 Laboratory Results CBC 09/29/22 Range/Units 06:22 WBC 5.87 (4.8-10.8) K/ul RBC 3.81 L (4.70-6.10) M/uL Hgb 11.4 L (14.0-18.0) g/dl Hct 35.0 L (42.0-52.0) % Plt Count 146 (130-400) K/uL Comprehensive Metabolic Panel 09/29/22 Range/Units 06:22 Sodium 137 (136-145) mmol/L Potassium 4.3 D (3.5-5.1) mmol/L Chloride 101 (98-107) mmol/L Carbon Dioxide 29 (21-32) mmol/L BUN 29 H (6-23) mg/dl Creatinine 1.22 (0.6-1.4) mg/dl Glucose 78 (70-99(Fasting)) mg/dl Calcium 8.6 (8.6-10.3) mg/dl Intake and Output 09/28/22 09/29/22 09/29/22 22:59 06:59 14:59 Intake Total 720 / 720 Output Total 450 / 1375 1300 / 1300 Balance -450 / -895 -580 / -580 Intake: Oral 720 / 720 Output: Urine 450 / 1375 1300 / 1300 Other: Weight 56.1 kg Weight Measurement Method Built in [facility] Diagnostic Findings EKG 09/26/22 and reviewed independently:SR with atrial pacing, [place] QRS with LBBB. ttecho performed 09/26/22: LVEF 15-20% with extensive inferior posterior scar and severe hypokinesis of the remaining segments
--- NOTE | 2022-09-29 16:37 | Hospitalist Progress Note ---
Date of Service September 29, 2022 Assessment & Plan (1) Acute exacerbation of CHF (congestive heart failure): (2) Elevated brain natriuretic peptide (BNP) level: (3) Ischemic cardiomyopathy: (4) H/O cardiac arrest: (5) ICD (implantable cardioverter-defibrillator) in place: (6) Acute hypokalemia: (7) CAD (coronary artery disease): (8) HTN (hypertension): (9) CKD (chronic kidney disease) stage 3, GFR 30-59 ml/min: (10) Hypothyroidism: Plan Patient is an 81 yr male with H/O Ischemic cardiomyopathy with chronic systolic heart failure and an estimated left ventricular ejection fraction of 30%, severe CAD s/p CABG and most recently stent in 04/2021 with KALEN, history of V-fib and V. tach status post AICD updated in Mar 2022, hypothyroidism, dyslipidemia, hypertension, BPH, statin intolerance and other medical problems listed below who presents with progressively worsening shortness of breath over the past few weeks. Acute on chronic Systolic heart failure -CXR:Cardiomegaly and AICD with evidence of congestive failure. Small pleural effusions with dependent consolidation. --ECHO: Aortic valve sclerosis mild, without significant aortic valvular stenosis. Left ventricle is borderline dilated. Apical wall motion abnormality may reflect pacemaker activation. Wall motion abnormalities are present consistent with ischemic cardiomyopathy with extensive inferoposterior scar and severe hypokinesis of other segments. EF 15 to 20%. Moderate mitral and tricuspid regurgitation. Right ventricle systolic pressure is elevated at 40 to 50 mmHg. --BNP 3205 -- Received IV Lasix Monitor I's and O's, daily weight Appreciate cardiology input Continue metoprolol lisinopril, Imdur held due to low BP Amlodipine discontinued Needs follow-up with cardiology upon discharge IV Lasix transition to torsemide Continue Aldactone 12.5 mg daily May need 2 step prior to discharge Hyponatremia Likely secondary to volume overload Monitor sodium levels Sodium level improved to 137 Hypokalemia Replete electrolytes as needed Resolved Weight loss Per Epic, 23 lb unintentional weight loss since May, per chart review Outpatient CT chest revealing evidence of mass effect on the esophagus as a result of the enlarged left atrium, however, there is also suggestion of thickening of the mucosa above this level Mass effect likely contributing to appetite decline Dietitian consulted CAD H/o CABG, KALEN in 2020 Continue Toprol, aspirin, Plavix, Imdur, statin H/o Vfib, vtach cardiac arrest AICD updated in Mar 2022. 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 22.3 Qualifications Examiner Consulted DVT Px: SQ heparin Code status: FULL CODE Admission and Anticipated Discharge Date Admission Date: September 25, 2022 Subjective Patient is seen and examined at bedside Feeling well today Dyspnea on exertion resolved Denies any chest pain, dyspnea, dizziness, nausea, abdominal pain Saturating well on room air Review of Systems Review of Systems: All systems reviewed & are unremarkable except as noted in Subjective Physical Exam Physical Exam: Physical Exam: Vitals signs as noted above General Appearance:Thin, frail, no apparent distress Head: normocephalic, Atraumatic Eyes: normal inspection, EOMI Neck: supple, Trachea midline Respiratory/Chest: Decreased breath sounds, CTA, No accessory muscle use Cardiovascular: S1, S2, + murmur Abdomen/GI:Soft, Non tender, Bowel sounds present Extremities/Musculoskeletal:normal inspection, no edema Neurologic/Psych:AAOX3, grossly no focal neurological deficits Skin: normal color, warm Results & Data Results & Data Vital Signs (Past 12 Hours) Vital Signs Temp Pulse Resp BP Pulse Ox O2 Del Method O2 Flow Rate 09/29/22 15:25 36.3 C L 63 16 103/67 96 Room Air 09/29/22 08:00 Room Air, Nasal Cannula 09/29/22 11:03 36.6 C 63 18 95/64 L 93 Room Air 09/29/22 07:49 37.3 C 60 18 102/61 99 Nasal Cannula 2 Laboratory Results Short CBC 09/29/22 Range/Units 06:22 WBC 5.87 (4.8-10.8) K/ul Hgb 11.4 L (14.0-18.0) g/dl Hct 35.0 L (42.0-52.0) % Plt Count 146 (130-400) K/uL BMP 09/29/22 06:22 Sodium 137 Potassium 4.3 D Chloride 101 Carbon Dioxide 29 BUN 29 H Creatinine 1.22 Glucose 78 Calcium 8.6
[2022-09-30] MEDS: LEVOTHYROXINE SODIUM 75 MCG TABLET PO SCH (06:22)
[2022-09-30 07:28] LABS: BUN Creatinine Ratio 26.6 (10-20); Calcium 8.7 mg/dl (8.6-10.3); Creatinine Clr Calc Pharmacy 41.7 ml/min; Est GFR (African American) 73.9 ml/min; Est GFR (Non-African American) 63.8 ml/min; Potassium 4.7 mmol/L (3.5-5.1)
[2022-09-30] MEDS ORDERED: TORSEMIDE 10 MG TAB PO SCH (09:00)
[2022-09-30] MEDS: POTASSIUM CHLORIDE CRTAB 20 MEQ TABCR PO SCH (09:08)
[2022-09-30] MEDS: SPIRONOLACTONE 12.5 MG TAB PO SCH (09:17)
[2022-09-30] MEDS: AMIODARONE 200 MG TAB PO SCH (09:17)
[2022-09-30] MEDS: CLOPIDOGREL BISULFATE 75 MG TAB PO SCH (09:17)
[2022-09-30] MEDS: METOPROLOL SUCC 50MG EXT REL TAB PO SCH (09:17)
[2022-09-30] MEDS: FINASTERIDE 5 MG TAB PO SCH (09:18)
[2022-09-30] MEDS: ASPIRIN 81 MG ECTAB PO SCH (09:18)
[2022-09-30] MEDS: ROSUVASTATIN CALCIUM 5 MG TAB PO SCH (09:18)
[2022-09-30] MEDS: CETIRIZINE HCL 10 MG TABLET PO SCH (09:18)
[2022-09-30] MEDS: HEPARIN SOD 5,000 UNIT/0.5 ML VIAL SQ SCH (09:19)
--- NOTE | 2022-09-30 13:27 | Hospitalist Progress Note ---
Date of Service September 30, 2022 Assessment & Plan (1) Acute exacerbation of CHF (congestive heart failure): (2) Elevated brain natriuretic peptide (BNP) level: (3) Ischemic cardiomyopathy: (4) H/O cardiac arrest: (5) ICD (implantable cardioverter-defibrillator) in place: (6) Acute hypokalemia: (7) CAD (coronary artery disease): (8) HTN (hypertension): (9) CKD (chronic kidney disease) stage 3, GFR 30-59 ml/min: (10) Hypothyroidism: Plan Patient is an 81 yr male with H/O Ischemic cardiomyopathy with chronic systolic heart failure and an estimated left ventricular ejection fraction of 30%, severe CAD s/p CABG and most recently stent in 04/2021 with KALEN, history of V-fib and V. tach status post AICD updated in Mar 2022, hypothyroidism, dyslipidemia, hypertension, BPH, statin intolerance and other medical problems listed below who presents with progressively worsening shortness of breath over the past few weeks. Acute on chronic Systolic heart failure -CXR:Cardiomegaly and AICD with evidence of congestive failure. Small pleural effusions with dependent consolidation. --ECHO: Aortic valve sclerosis mild, without significant aortic valvular stenosis. Left ventricle is borderline dilated. Apical wall motion abnormality may reflect pacemaker activation. Wall motion abnormalities are present consistent with ischemic cardiomyopathy with extensive inferoposterior scar and severe hypokinesis of other segments. EF 15 to 20%. Moderate mitral and tricuspid regurgitation. Right ventricle systolic pressure is elevated at 40 to 50 mmHg. --BNP 3205 -- Received IV Lasix Monitor I's and O's, daily weight Appreciate cardiology input Continue metoprolol lisinopril discontinued Changed Imdur to 60mg daily Amlodipine discontinued Needs follow-up with cardiology upon discharge IV Lasix transition to torsemide 10 mg daily Continue Aldactone 12.5 mg daily 2 step: Did not qualify for Oxygen Consideration for Entresto as outpatient Needs follow-up with cardiology upon discharge Hyponatremia Likely secondary to volume overload Monitor sodium levels Sodium level improved to 136 Hypokalemia Replete electrolytes as needed Resolved Weight loss Per Epic, 23 lb unintentional weight loss since May, per chart review Outpatient CT chest revealing evidence of mass effect on the esophagus as a result of the enlarged left atrium, however, there is also suggestion of thickening of the mucosa above this level Mass effect likely contributing to appetite decline Dietitian consulted CAD H/o CABG, KALEN in 2020 Continue Toprol, aspirin, Plavix, Imdur, statin H/o Vfib, vtach cardiac arrest AICD updated in Mar 2022. 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 22.3 Pneumatic Tester Consulted DVT Px: SQ heparin Code status: FULL CODE Admission and Anticipated Discharge Date Admission Date: September 25, 2022 Subjective Patient is seen and examined at bedside No new complaints Doing well today Denies any chest pain, dyspnea, dizziness, nausea, abdominal pain Saturating well on room air Had 2 step earlier today Review of Systems Review of Systems: All systems reviewed & are unremarkable except as noted in Subjective Physical Exam Physical Exam: Physical Exam: Vitals signs as noted above General Appearance:Thin, frail, no apparent distress Head: normocephalic, Atraumatic Eyes: normal inspection, EOMI Neck: supple, Trachea midline Respiratory/Chest: Decreased breath sounds, CTA, No accessory muscle use Cardiovascular: S1, S2, + murmur Abdomen/GI:Soft, Non tender, Bowel sounds present Extremities/Musculoskeletal:normal inspection, no edema Neurologic/Psych:AAOX3, grossly no focal neurological deficits Skin: normal color, warm Results & Data Results & Data Vital Signs (Past 12 Hours) Vital Signs Temp Pulse Pulse Pulse Pulse Resp Resp 09/30/22 09:00 09/30/22 11:19 37.0 C 67 18 09/30/22 08:02 77 71 70 20 09/30/22 07:22 36.5 C 64 16 09/30/22 03:16 36.6 C 66 20 Resp Resp BP BP Pulse Ox Pulse Ox Pulse Ox 09/30/22 09:00 09/30/22 11:19 101/65 91 09/30/22 08:02 16 16 93 94 09/30/22 07:22 109/72 98 09/30/22 03:16 107/67 99 Pulse Ox O2 Del Method O2 Flow Rate 09/30/22 09:00 Room Air 09/30/22 11:19 Room Air 09/30/22 08:02 95 09/30/22 07:22 Nasal Cannula 2 09/30/22 03:16 Nasal Cannula 2 Laboratory Results BMP 09/30/22 06:38 Sodium 136 Potassium 4.7 Chloride 102 Carbon Dioxide 30 BUN 29 H Creatinine 1.09 Glucose 82 Calcium 8.7
--- NOTE | 2022-09-30 13:53 | Cardiology Progress Note ---
Date of Service September 30, 2022 Assessment & Plan (1) Acute on chronic HFrEF (heart failure with reduced ejection fraction): (2) Ischemic cardiomyopathy: (3) Pacemaker: (4) H/O cardiac arrest: (5) ICD (implantable cardioverter-defibrillator) in place: Plan IMPRESSION: Medically complex 81 year old male with acute on chronic HFrEF. Carries a history of history of ischemic cardiomyopathy with AICD placement following x2 cardiac arrest- on amiodarone, most recent AICD shock 04/2021 for vfib arrest. Echo this admission with a further decline in EF noting ~15-20%. PLAN: Stable for discharge on current medications to include: Aspirin 81 mg daily Clopidogrel 75 mg daily Rosuvastatin 5 mg daily Amiodarone 200 mg daily Metoprolol succinate 50 mg twice daily Levothyroxine 75 mcg daily Spironolactone 12.5 mg daily (new medication) Torsemide 10 mg by mouth daily (new medication) Isosorbide mononitrate 60 mg daily-change from previous dose of 30 mg twice daily -Continue to hold lisinopril 20 mg daily at discharge. If blood pressure allows at follow-up, future considerations include resuming lisinopril at lower dose or perhaps transitioning to Entresto. Patient being discharged off of an ADRIANO inhibitor, ARB , and Entresto due to re lative hypotension with systolic blood pressure in the 90s to low 100s. Has dual chamber AICD. Given decline in LVEF from 30-35% in 12/2021 to 15-20% now, and development of LBBB QRS duration in range of 130-180 ms future considerations include upgrade to a Biventricular PLANT MAINTENANCE MANAGER capable device. Patient had recently had generator change performed in March,, at that time, upgrade to a PLANT MAINTENANCE MANAGER capable device was not clinically indicated as he was stable from a CHF standpoint without preceding decompensations or worsening heart failure symptoms. Admission and Anticipated Discharge Date Admission Date: September 25, 2022 Subjective Patient seen in cardiology follow-up. He notes feeling well. Denies chest discomfort or shortness of breath at present and states he is feeling progressively improved compared to when he was admitted to the hospital. Telemetry reveals sinus rhythm with atrial pacing, ventricular QRS complexes in the 60s. Physical Exam Constitutional: WD/WN, vitals as above no acute distress Eyes: PERRL, conjunctivae normal, anicteric sclerae Neck: normal visual inspection and trachea midline Respiratory: normal respiratory effort and + cough; no respiratory distress Auscultation: + diminished lung sounds (BL bases) and + rales (bibasilar) Cardiovascular: Rate/Rhythm: regular rate and regular rhythm Heart Sounds: normal S1, normal S2 and + murmur Vessels: no JVD Extremities: no edema Chest (Breasts): Chest: + pacemaker Gastrointestinal (Abdomen): normal bowel sounds, soft, nontender, no hepatosplenomegaly Skin: no rashes, warm and dry Psychiatric: A+Ox3, euthymic affect Results & Data Vital Signs (Past 12 Hours) Vital Signs Temp Pulse Pulse Pulse Pulse Resp Resp 09/30/22 09:00 09/30/22 11:19 37.0 C 67 18 09/30/22 08:02 77 71 70 20 09/30/22 07:22 36.5 C 64 16 09/30/22 03:16 36.6 C 66 20 Resp Resp BP BP Pulse Ox Pulse Ox Pulse Ox 09/30/22 09:00 09/30/22 11:19 101/65 91 09/30/22 08:02 16 16 93 94 09/30/22 07:22 109/72 98 09/30/22 03:16 107/67 99 Pulse Ox O2 Del Method O2 Flow Rate 09/30/22 09:00 Room Air 09/30/22 11:19 Room Air 09/30/22 08:02 95 09/30/22 07:22 Nasal Cannula 2 09/30/22 03:16 Nasal Cannula 2 Laboratory Results Comprehensive Metabolic Panel 09/30/22 Range/Units 06:38 Sodium 136 (136-145) mmol/L Potassium 4.7 (3.5-5.1) mmol/L Chloride 102 (98-107) mmol/L Carbon Dioxide 30 (21-32) mmol/L BUN 29 H (6-23) mg/dl Creatinine 1.09 (0.6-1.4) mg/dl Glucose 82 (70-99(Fasting)) mg/dl Calcium 8.7 (8.6-10.3) mg/dl Intake and Output 09/29/22 09/30/22 09/30/22 22:59 06:59 14:59 Intake Total 150 / 1110 240 / 1110 Output Total 500 / 2100 300 / 2100 Balance -350 / -990 -60 / -990 Intake: Oral 150 / 1110 240 / 1110 Output: Urine 500 / 2100 300 / 2100 Other: Weight 55 kg Weight Measurement Method Built in [facility]
[2022-09-30] MEDS ORDERED: ISOSORBIDE MONO EXTENDED REL 60 MG TABCR PO SCH (14:00)
--- NOTE | 2022-09-30 14:10 | Discharge Summary ---
Date of Service September 30, 2022 Admission HPI Per Admitting Provider This is an 81yo M with a PMH of ischemic cardiomyopathy with chronic systolic heart failure and an estimated left ventricular ejection fraction of 30%, severe CAD s/p CABG and most recently stent in 04/2021 with KALEN, history of V-fib and V. tach status post AICD updated in Mar 2022, hypothyroidism, dyslipidemia, hypertension, BPH, statin intolerance and other medical problems listed below who presents with progressively worsening shortness of breath over the past few weeks. Associated swelling in lower extremities and had trouble fitting boots due to swelling the past day or two. Usually sleeps lying down but had to get out of bed and sleep in recliner last night. Does not take a diuretic. Feels dizzy with quick movements. Does not require oxygen at baseline. Endorses unintentional weight loss of approximately 20-30 lbs since May. No night sweats. Underwent outpatient workup in August with CT chest revealing evidence of mass effect on the esophagus as a result of the enlarged left atrium, however, there is also suggestion of thickening of the mucosa above this level. Consider EGD. Colonoscopy performed around this time with with evidence of diverticulosis. No fever, chills, visual changes, CP, wheezing, N/V, abdominal pain, dysuria, diarrhea or constipation. Lives in same home as grandson. Ambulates independently. Admission Exam Per Admitting Provider PE: NAD, well developed, NC in place Cardiac: Systolic murmur, normal S1/S2 Lungs: good air entry b/l with lower lobe crackles Abd: ND, NT, soft MSK: no LE edema Psych: AAOx3, normal affect Principal Diagnosis Acute on chronic Systolic heart failure Hyponatremia Discharge Data Allergies Allergy/AdvReac Type Severity Reaction Status Date / Time pantoprazole [From Protonix] Allergy Unknown Hives Verified 09/25/22 18:55 sucralfate Allergy Unknown Hives Verified 09/25/22 18:55 Consultations 09/25/22 18:28 ED Decision to Admit Stat 09/25/22 20:05 Consult Cardiology Routine Procedures Performed Laboratory Results WBC 5.87 K/ul (4.8-10.8) 09/29/22 06:22 RBC 3.81 M/uL (4.70-6.10) L 09/29/22 06:22 Hgb 11.4 g/dl (14.0-18.0) L 09/29/22 06: Hct 35.0 % (42.0-52.0) L 09/29/22 06:22 MCV 91.9 fL (80.0-100.0) 09/29/22 06:22 MCH 29.9 pg (25.0-34.0) 09/29/22 06: MCHC 32.6 g/dL (32.0-36.0) 09/29/22 06: RDW Std Deviation 56.1 fL (36.4-46.3) H 09/29/22 06: RDW Coeff of Ángel 16.8 % (11.5-14.5) H 09/29/22 06: Plt Count 146 K/uL (130-400) 09/29/22 06: MPV 10.9 fL (9.4-12.4) 09/29/22 06:22 Immature Gran % (Auto) 0.6 % 09/25/22 17:06 Neut % (Auto) 82.1 % 09/25/22 17:06 Lymph % (Auto) 7.4 % 09/25/22 17:06 Morgan % (Auto) 8.7 % 09/25/22 17:06 Eos % (Auto) 0.8 % 09/25/22 17:06 Baso % (Auto) 0.4 % 09/25/22 17:06 Neut # (Auto) 6.33 K/uL (1.40-6.50) 09/25/22 17:06 Lymph # (Auto) 0.57 K/uL (1.2-3.4) L 09/25/22 17:06 Morgan # (Auto) 0.67 K/uL (0.11-0.59) H 09/25/22 17:06 Eos # (Auto) 0.06 K/uL (0-0.50) 09/25/22 17:06 Baso # (Auto) 0.03 K/uL (0-0.2) 09/25/22 17:06 Immature Gran # (Auto) 0.05 K/uL (0.01-0.20) 09/25/22 17:06 PT 14.0 Seconds (9.0-12.0) H 09/25/22 17:06 INR 1.3 (0.9-1.1) H 09/25/22 17:06 Sodium 136 mmol/L (136-145) 09/30/22 06:38 Potassium 4.7 mmol/L (3.5-5.1) 09/30/22 06:38 Chloride 102 mmol/L (98-107) 09/30/22 06:38 Carbon Dioxide 30 mmol/L (21-32) 09/30/22 06:38 Anion Gap 4 (3-11) 09/30/22 06:38 BUN 29 mg/dl (6-23) H 09/30/22 06:38 Creatinine 1.09 mg/dl (0.6-1.4) 09/30/22 06:38 Est Cr Clr Drug Dosing 41.7 ml/min 09/30/22 06:38 Est GFR ( Amer) 73.9 ml/min 09/30/22 06:38 Est GFR (Non-Af Amer) 63.8 ml/min 09/30/22 06:38 BUN/Creatinine Ratio 26.6 (10-20) H 09/30/22 06:38 Glucose 82 mg/dl (70-99(Fasting)) 09/30/22 06:38 Calcium 8.7 mg/dl (8.6-10.3) 09/30/22 06:38 Magnesium 1.8 mg/dl (1.7-2.4) 09/29/22 06:22 Total Bilirubin 1.3 mg/dl (0.2-1.0) H 09/25/22 17:06 AST 20 U/L (13-39) 09/25/22 17:06 ALT 23 U/L (7-52) 09/25/22 17:06 Alkaline Phosphatase 72 U/L (34-104) 09/25/22 17:06 Troponin I High Sens 13.0 pg/ml (0-20) 09/25/22 17:06 B-Natriuretic Peptide 3205 pg/ml (0-100) H 09/25/22 17:06 Total Protein 7.2 gm/dl (6.0-8.3) 09/25/22 17:06 Albumin 3.6 gm/dl (3.4-5.0) 09/25/22 17:06 Globulin 3.6 gm/dl (2.5-4.0) 09/25/22 17:06 Albumin/Globulin Ratio 1.0 (0.9-2) 09/25/22 17:06 Procalcitonin < 0.05 ng/ml (0-0.5) 09/26/22 08:41 Urine Color Sierra 09/25/22 18:40 Urine Appearance Cloudy (Clear) A 09/25/22 18:40 Urine pH 5.0 (4.5-7.5) 09/25/22 18:40 Ur Specific Holiday 1.028 (1.000-1.030) 09/25/22 18:40 Urine Protein 2+ (Negative) H 09/25/22 18:40 Urine Glucose (UA) Negative (Negative) 09/25/22 18:40 Urine Ketones Trace (Negative) H 09/25/22 18:40 Urine Blood Negative (Negative) 09/25/22 18:40 Urine Nitrite Positive (Negative) A 09/25/22 18:40 Urine Bilirubin 1+ (Negative) H 09/25/22 18:40 Urine Urobilinogen Negative (Negative) 09/25/22 18:40 Ur Leukocyte Esterase Trace (Negative) H 09/25/22 18:40 Urine WBC (Auto) 5-10 /hpf (0-5) H 09/25/22 18:40 Urine RBC (Auto) 5-10 /hpf (0-4) H 09/25/22 18:40 U Hyaline Cast (Auto) 0 /lpf (0-5) 09/25/22 18:40 U Epithel Cells (Auto) >30 /lpf (0-5) H 09/25/22 18:40 Urine Bacteria (Auto) Negative (Negative) 09/25/22 18:40 Ur Renal Epithelial Cell Not Reportable 09/25/22 18:40 Urine Crystals Not Reportable 09/25/22 18:40 Calcium Oxalate Crystal Present (None Prsent) A 09/25/22 18:40 Urine Mucus Present (None Prsent) A 09/25/22 18:40 SARS-CoV-2, RNA, NAAT NEGATIVE (NEGATIVE) 09/25/22 Unknown Impressions Chest X-Ray 09/25/22 16:49 SINGLE VIEW CHEST CLINICAL HISTORY: Dyspnea. FINDINGS: An AP, portable, upright chest radiograph is compared to chest x-ray and chest CT dated 12/31/2021. The patient is status post midline sternotomy. A 2-lead cardiac AICD is unchanged in position and partially obscures the left lower chest. The heart is enlarged noting atherosclerotic calcification of the thoracic area. There is pulmonary vascular congestion with mild interstitial edema. There are layering pleural effusions with dependent consolidation. No pneumothorax is seen. The skeletal structures are osteopenic. The bony thorax is grossly intact. Cholecystectomy clips are noted in the right upper quadrant. IMPRESSION: 1. Cardiomegaly and AICD with evidence of congestive failure. 2. Small pleural effusions with dependent consolidation. ACT 112: Negative or not required by law. Electronically signed by: Chuck Pacheco M.D. 09/25/2022 5:30 PM Hospital Course (1) Acute exacerbation of CHF (congestive heart failure): (2) Elevated brain natriuretic peptide (BNP) level: (3) Ischemic cardiomyopathy: (4) H/O cardiac arrest: (5) ICD (implantable cardioverter-defibrillator) in place: (6) Acute hypokalemia: (7) CAD (coronary artery disease): (8) HTN (hypertension): (9) CKD (chronic kidney disease) stage 3, GFR 30-59 ml/min: (10) Hypothyroidism: Plan Patient is an 81 yr male with H/O Ischemic cardiomyopathy with chronic systolic heart failure and an estimated left ventricular ejection fraction of 30%, severe CAD s/p CABG and most recently stent in 04/2021 with KALEN, history of V-fib and V. tach status post AICD updated in Mar 2022, hypothyroidism, dyslipidemia, hypertension, BPH, statin intolerance and other medical problems listed below who presents with progressively worsening shortness of breath over the past few weeks. Acute on chronic Systolic heart failure -CXR:Cardiomegaly and AICD with evidence of congestive failure. Small pleural effusions with dependent consolidation. --ECHO: Aortic valve sclerosis mild, without significant aortic valvular stenosis. Left ventricle is borderline dilated. Apical wall motion abnormality may reflect pacemaker activation. Wall motion abnormalities are present consistent with ischemic cardiomyopathy with extensive inferoposterior scar and severe hypokinesis of other segments. EF 15 to 20%. Moderate mitral and tricuspid regurgitation. Right ventricle systolic pressure is elevated at 40 to 50 mmHg. --BNP 3205 -- Received IV Lasix Monitor I's and O's, daily weight Appreciate cardiology input Continue metoprolol lisinopril discontinued Changed Imdur to 60mg daily Amlodipine discontinued Needs follow-up with cardiology upon discharge IV Lasix transition to torsemide 10 mg daily Continue Aldactone 12.5 mg daily 2 step: Did not qualify for Oxygen Consideration for Entresto as outpatient Needs follow-up with cardiology upon discharge Hyponatremia Likely secondary to volume overload Monitor sodium levels Sodium level improved to 136 Hypokalemia Replete electrolytes as needed Resolved Weight loss Per Epic, 23 lb unintentional weight loss since May, per chart review Outpatient CT chest revealing evidence of mass effect on the esophagus as a result of the enlarged left atrium, however, there is also suggestion of thickening of the mucosa above this level Mass effect likely contributing to appetite decline Dietitian consulted CAD H/o CABG, KALEN in 2020 Continue Toprol, aspirin, Plavix, Imdur, statin H/o Vfib, vtach cardiac arrest AICD updated in Mar 2022. 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 DVT Px: SQ heparin Code status: FULL CODE Total Time Total Time Spent Total Time Spent (In Minutes): 53 minutes Discharge Plan Discharge Items Patient Disposition: Home - Self-Care Reason For Visit: CHF EXACERBATION Discharge Diagnosis: Acute on chronic Systolic heart failure Hyponatremia Activity: Per Instructions section Exercise/Sports: Wait until after follow-up appointment Non-emergency contact: Primary Care Provider and Pheresis Specialist Call non-emergency contact if: you have any medication questions, your symptoms worsen, your pain is concerning for you and you have a fever Follow-up/Referrals: Roslyn Gale DO [Primary Care Provider] - Diet: Heart Healthy and Low Sodium (2gm) Diet Texture: Easy to Chew Addtl Attending Provider Instructions: Follow-up with your primary care physician Dr. 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 Bynum/ as recommended. Office will call you with appointment Seek immediate medical attention if your symptoms reoccur or worsen Please take all medications as instructed on discharge list below. Please call if you have any questions or problems. You can reach a [facility] hospitalist on duty at [facility] 24 hours a day by calling [phone] Call your Primary Care doctor if any of the following symptoms or problems start or get worse: * Shortness of breath or difficulty breathing * Wake up at night short of breath * Chest pain * Cough * Swelling of your hands, feet, or legs * More fatigued or tired with your normal activity * Palpitations - sudden fast heart beats WEIGHT * Weigh yourself every morning after using the bathroom. * Use the same scale. * Wear the same amount of clothing. * Write your weight down on a chart. * Call your Primary Care doctor if you gain more than 2-3 pounds in 1-2 days. MEDICATIONS * Use this discharge instruction sheet for medication instructions. * Take your medications at the time your doctor ordered. * Do not skip a dose of your medicines. * If you miss a dose of medicine, take it as soon as possible, but DO NOT DOUBLE A DOSE. * Read your medicine information when you get home. * Know all of the side effects of your medicine. If in doubt, ask your pharmacist * Call your Primary Care doctor's office if you have any side effects. * Be sure all of your doctors know what medicine and herbs you take (including cold, flu, and herbal medicine). Take the following with you to your follow-up doctor appointments: * Weight Chart * Medication List * List of questions Do not drink excessive alcohol, beer or wine. Pending Studies at Discharge: No Stand-Alone Forms: My [facility], Smoking Cessation Medications and DC Order Prescriptions: New torsemide 10 mg Tablet 10 mg PO QAM Qty: 30 1RF spironolactone 25 mg Tablet 12.5 mg PO DAILY Qty: 30 1RF isosorbide mononitrate 60 mg Tablet Extended Release 24 Hr 60 mg PO QAM Qty: 30 1RF Continued clopidogrel [Plavix] 75 mg Tablet 75 mg PO QAM finasteride 5 mg Tablet 5 mg PO QAM aspirin [Thomas Low Dose Aspirin] 81 mg Tablet,Delayed Release (Dr/Ec) 81 mg PO QAM nitroglycerin [Nitrostat] 0.4 mg Tablet, Sublingual 1 dose Sublingual UD PRN (Reason: Chest Pain) amiodarone 200 mg tablet 200 mg PO DAILY rosuvastatin 5 mg tablet 5 mg PO DAILY levothyroxine 75 mcg tablet 75 mcg PO DAILYBB cetirizine 5 mg tablet 5 mg PO DAILY albuterol sulfate [Proventil HFA] 90 mcg/actuation Hfa Aerosol Inhaler 2 puff INHALATION 6XD PRN (Reason: Shortness Of Breath Or Wheezing) metoprolol succinate 50 mg tablet extended release 24 hr 50 mg PO BID Discontinued lisinopril 20 mg Tablet 20 mg PO QAM Qty: 0 amlodipine 5 mg Tablet 5 mg PO QAM Qty: 0 isosorbide mononitrate 30 mg Tablet Extended Release 24 Hr 30 mg PO BID Discharge Orders: Discharge Order- CHF (Routine); Ordered 09/30/22 Ordered By: Jesse Allison Admission Data Admit Date/Time: 09/25/22 18:36 Attending Provider: Jesse Allison Admit Provider: Demetrius Chu Primary Care Provider: Roslyn Gale Other Providers: Demetrius Chu ; Geovani Bynum
[2022-10-01] MEDS ORDERED: POTASSIUM CHLORIDE 10 MEQ TABCR PO SCH (09:00)
== END 2022-09-30 16:00 | disposition home or self-care (01) | DRG 291 ==
LOC: ED 16:34 → SUATTDRO 18:36 → 2E 18:36

== ENCOUNTER 2023-05-17 21:28 | Inpatient (IN) ==
--- NOTE | 2023-05-17 22:33 | CT Scan Report ---
CT SCAN OF THE BRAIN WITHOUT IV CONTRAST CLINICAL HISTORY: Change in mental status. COMPARISON STUDY: No priors. TECHNIQUE: Unenhanced axial CT scan of the brain is performed from the vertex to the skull base. A do se lowering technique was utilized adhering to the principles of ALARA. CT DOSE: 547.75 mGy.cm FINDINGS: Brain parenchyma: There is age-related involutional change noting mild subcortical and periventricula r microangiopathic disease. There is no hemorrhage, mass effect, or evidence of acute territorial isc hemia by CT criteria. 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 Mi neralization is noted in the basal ganglia. Mcgregor-white matter differentiation is preserved. No extra- axial fluid collection is seen. Ventricles, sulci, cisterns: Prominent secondary to involutional change. Intracranial vasculature: There is atherosclerotic calcification of the cavernous carotid and vertebr al arteries. Calvarium: Unremarkable. Sinuses and mastoids: The visualized paranasal sinuses are clear. The mastoid air cells are well pneu matized. Orbits: The bony orbits are grossly intact. IMPRESSION: There is no hemorrhage, mass effect, or evidence of acute territorial ischemia by CT lyndsay gan. ACT 112: Negative or not required by law. Electronically signed by: Chuck Pacheco M.D. 05/17/2023 10:31 PM
[2023-05-17 22:44] LABS: Basophils # (auto) 0.04 K/uL (0.00-0.20); Basophils % (auto) 0.6 %; Eosinophils # (auto) 0.18 K/uL (0.00-0.50); Eosinophils % (auto) 2.6 %; Hematocrit (blood only) 36.6 % (42.0-52.0); Hemoglobin 11.4 g/dl (14.0-18.0); Immature Granulocytes # (auto) 0.03 K/uL (0.01-0.20); Immature Granulocytes % (auto) 0.4 %; Lymphocytes # (auto) 0.57 K/uL (1.20-3.40); Lymphocytes % (auto) 8.3 %; Mean Corpuscular Hemoglobin 31.1 pg (25.0-34.0); Mean Corpuscular Hgb Conc 31.1 g/dL (32.0-36.0); Mean Corpuscular Volume 99.7 fL (80.0-100.0); Mean Platelet Volume 11.2 fL (9.4-12.4); Monocytes # (auto) 0.36 K/uL (0.11-0.59); Monocytes % (auto) 5.2 %; Neutrophils % (auto) 82.9 %; Platelet Count 143 K/uL (130-400); RDW Coefficient of Variation 18.2 % (11.5-14.5); RDW Standard Deviation 65.2 fL (36.4-46.3); Red Blood Count 3.67 M/uL (4.70-6.10); White Blood Count 6.88 K/ul (4.8-10.8)
--- NOTE | 2023-05-17 22:45 | XRay Report ---
SINGLE VIEW CHEST CLINICAL HISTORY: Sepsis FINDINGS: An AP, portable, upright chest radiograph is compared to study dated 09/25/2022. A 2-lead ca rdiac AICD is unchanged in position and partially obscures the left mid chest. Coronary artery stents are noted. The patient is status post midline sternotomy. The heart is enlarged. The pulmonary vascu lature is noncongested. Chronic interstitial thickening is similar to previous. There is bibasilar sc arring/atelectasis. The lungs and pleural spaces are otherwise clear. No pneumothorax is seen. The sk eletal structures are osteopenic. The bony thorax is grossly intact. IMPRESSION: 1. Cardiomegaly and AICD without radiographic evidence of congestive failure. 2. No airspace consolidation or large pleural effusion is identified. ACT 112: Negative or not required by law. Electronically signed by: Chuck Pacheco M.D. 05/17/2023 10:44 PM
[2023-05-17 22:59] LABS: Albumin Level 3.4 gm/dl (3.4-5.0); BUN Creatinine Ratio 19.1 (10-20); Bilirubin Direct 1.1 mg/dl (0-0.2); Bilirubin,Total 2.2 mg/dl (0.2-1.0); Calcium 8.8 mg/dl (8.6-10.3); Creatinine Clr Calc Pharmacy 35.3 ml/min; Est GFR (African American) 68.8 ml/min; Est GFR (Non-African American) 59.4 ml/min; Magnesium 2.1 mg/dl (1.7-2.4); Potassium 4.1 mmol/L (3.5-5.1); Total Protein 7.4 gm/dl (6.0-8.3)
[2023-05-17 23:05] LABS: Troponin I High Sensitivity 18.9 pg/ml (0-20)
[2023-05-17 23:05] LABS: Appearance Urine Clear (Clear); Bacteria Urine Automated Negative (Negative); Blood Urine Negative (Negative); Color Urine Dark Yellow; Epithelial Cell Urine Auto >30 /lpf (0-5); Glucose Urine UA Negative (Negative); Ketones Urine Negative (Negative); Leukocyte Esterase Urine Trace (Negative); Nitrite Urine Positive (Negative); Protein Urine 2+ (Negative); RBC Urine Automated 0-4 /hpf (0-4); Specific Gravity Urine 1.023 (1.000-1.030); Urobilinogen Urine Positive (Negative); pH Urine 5.5 (4.5-7.5)
[2023-05-17 23:10] LABS: INR 1.3 (0.9-1.1); Partial Thromboplastin Time 29 Seconds (21-31)
[2023-05-17 23:11] LABS: Base Excess VBG -1.1 mEq/L; HCO3 VBG 24 mmol/L; Oxygen Saturation VBG < 60.0 %; PCO2 VBG 42 mmHg (38-50); PO2 VBG 20 mmHg; pH VBG 7.37 (7.36-7.41)
[2023-05-17 23:25] LABS: Bilirubin Urine 1+ (Negative)
--- NOTE | 2023-05-17 23:43 | Emergency Department Note ---
History of Present Illness General Chief complaint: Confusion Stated complaint: INCREASED CONFUSION, WEAKNESS Time Seen by Provider: 05/17/23 21:50 Source: patient and family (Son and [id number]) History of Present Illness Provider complaint: Altered mental status 82-year-old male was brought into the hospital by his son and [id number] for altered mental status. Son and [id number] report that the patient been increasing confused the last 2 days and having visual hallucinations not knowing where he is. They report that the patient is on Eliquis but has not had any falls or traumas. They report that the patient been on a fluid restriction for his congestive heart failure. No fevers. Patient is reporting no pain. Home Medications Medication Instructions Recorded Confirmed Type aspirin 81 mg tablet,delayed 81 mg PO QAM 01/16/18 05/17/23 History release (Thomas Low Dose Aspirin) clopidogrel 75 mg tablet (Plavix) 75 mg PO QAM 01/16/18 05/17/23 History finasteride 5 mg tablet (Proscar) 5 mg PO QAM 01/16/18 05/17/23 History rosuvastatin 5 mg tablet 5 mg PO DAILY 01/01/22 05/17/23 History metoprolol succinate 50 mg 50 mg PO BID 09/25/22 05/17/23 History tablet,extended release 24 hr lisinopril 2.5 mg tablet 2.5 mg PO QAM 01/28/23 05/17/23 History docusate sodium 100 mg capsule 100 mg PO HS 05/17/23 05/17/23 History isosorbide mononitrate 30 mg 30 mg PO QAM 05/17/23 05/17/23 History tablet,extended release 24 hr levothyroxine 100 mcg tablet 100 mcg PO DAILYBB 05/17/23 05/17/23 History polyethylene glycol 3350 17 17 g PO DAILY 05/17/23 05/17/23 History gram/dose oral powder (Miralax) potassium chloride 10 mEq 10 meq PO BID 05/17/23 05/17/23 History capsule,extended release torsemide 10 mg tablet 5 mg PO QAM 05/17/23 05/17/23 History Allergies Allergy/AdvReac Type Severity Reaction Status Date / Time pantoprazole [From Protonix] Allergy Intermediate Hives Verified 05/17/23 22:21 sucralfate Allergy Intermediate Hives Verified 05/17/23 22:21 Past Med/Surg History Medical History Pacemaker PLACED 2012 LAST CHECKED VIA REMOTE 09/20/2017 ICD (implantable cardioverter-defibrillator) in place PLACED 2012 @ [facility] LAST CHECKED VIA REMOTE 09/20/2017 Systolic CHF HTN (hypertension) GERD (gastroesophageal reflux disease) Hypothyroidism CKD (chronic kidney disease) stage 3, GFR 30-59 ml/min Prostate cancer Dx 2011, surveillance only BPH (benign prostatic hyperplasia) H/O cardiac arrest Stable angina pectoris Ischemic cardiomyopathy EF 30-35% H/O myocardial ischemia CAD (coronary artery disease) Surgical History History of tonsillectomy History of appendectomy Encounter for insertion of cardiac resynchronization therapy defibrillator History of cardiac cath X6 STENTS (2012 & 2014 [place]) UNSURE OF DATES -- WILL BRING STENT CARDS DOS H/O two vessel coronary artery bypass graft 1990 and 1999 Family History Other Coronary heart disease Social History Smoking Status: Never smoker Second Hand Exposure: No; Do You Dip or Chew Tobacco: No; Hx Alcohol Use: No Hx Substance Use: No Preferred Language: Citizen Of [place] Communication Ability: Effective Offbearer Sewer Pipe Required: No Beliefs That Will Affect Care: None marital status: Unknown Current Living Situation: Family Feels Safe at Home: Yes Assistive Devices: None Physical Exam Vital Signs Vital Signs - 24 hr 05/17/23 21:36 05/17/23 21:36 05/17/23 21:36 Temperature 36.8 C Temperature Source Oral Pulse Rate 68 Pulse Rate [Left Apical] 68 Respiratory Rate 15 Blood Pressure 116/82 Blood Pressure [Right Arm] 116/82 Blood Pressure Mean 93 Blood Pressure Mean [Right Arm] 93 Pulse Oximetry 97 Oxygen Delivery Method Room Air Room Air Sepsis Recent Fever Within 48 Hours No Sepsis New/Unexplained Change in Mental Status N/A Sepsis Action Taken by Nursing No Action Required Pulse Oximetry Post Tiitration 97 05/17/23 21:46 05/17/23 22:57 05/17/23 22:57 Temperature 36.8 C Temperature Source Oral Pulse Rate 66 66 Pulse Rate [Left Apical] 68 Respiratory Rate 15 15 Blood Pressure Blood Pressure [Right Arm] 116/82 Blood Pressure Mean Blood Pressure Mean [Right Arm] 93 Pulse Oximetry 97 97 Oxygen Delivery Method Room Air Room Air Sepsis Recent Fever Within 48 Hours Sepsis New/Unexplained Change in Mental Status Sepsis Action Taken by Nursing Pulse Oximetry Post Tiitration Physical Exam HENT: Exam performed. - Head: Normocephalic and atraumatic. - Right Ear: External ear normal. No mastoid erythema - Left Ear: External ear normal. No mastoid erythema - Mouth/Throat: The oropharynx is clear and moist. No trismus in the jaw. No dental abscesses or uvula swelling. No oropharyngeal exudate or tonsillar abscesses. EYES: Conjunctivae and EOM are normal. Pupils are equal, round, and reactive to light. Right eye exhibits no discharge. Left eye exhibits no discharge. No scleral icterus. NECK: Normal range of motion. Neck supple. No JVD present. No spinous process tenderness present.No rigidity. No tracheal deviation and normal range of motion present. CV: Normal rate, regular rhythm, normal heart sounds and intact distal pulses. There is no peripheral edema. Palpable radial pulses bue. PULM/CHEST: Effort normal and breath sounds normal. No respiratory distress. No stridor. He has no wheezes. He has no rales. ABD: The abdomen is soft. Bowel sounds are normal. He has no distension. No mass is present. There is no tenderness. There is no rebound, no guarding, no Sam's sign and no tenderness at McBurney's point. Rovsig negative. MUSC/SKEL: Normal range of motion. There is no peripheral edema, tenderness or deformity. NEURO: He is alert and oriented to person and place. Patient is not oriented to time. He has normal strength. No cranial nerve deficit or sensory deficit. Coordination and gait normal. Course Course 2149: The patient was evaluated in room A12. A complete history and physical exam was performed Cardiac monitoring: An order was placed for continuous cardiac monitoring. The monitor shows a rate of 70 with sinus rhythm interpreted by [place] 0010: Vital signs stable. Labs within normal limits with exception of mild lactic acidemia of 2.1 urinalysis does appear to be infected. Patient be treated with Rocephin. Labs are also significant for total bilirubin of 2.2 direct bilirubin of 1.1 AST of 42 alkaline phosphatase 158. Patient has no pain on palpation the abdomen. Imaging is within normal limits. Patient will be admitted to the [facility] hospitalist team. Administered Medications Discontinued Medications Ceftriaxone Sodium (Rocephin) 2,000 mg in 50 mls @ 100 mls/hr IV NOW STA Stop: 05/18/23 00:23 Last Admin: 05/18/23 00:37 Dose: 100 mls/hr Documented By: LATHA Medical Decision Making Laboratory Data Attestation: I reviewed the patient's lab results. 05/17/23 21:54 05/17/23 21:54 Lab Results 05/17/23 05/17/23 05/17/23 Range/Units 21:54 22:35 22:55 WBC 6.88 (4.8-10.8) K/ul RBC 3.67 L (4.70-6.10) M/uL Hgb 11.4 L (14.0-18.0) g/dl Hct 36.6 L (42.0-52.0) % MCV 99.7 (80.0-100.0) fL MCH 31.1 (25.0-34.0) pg MCHC 31.1 L (32.0-36.0) g/dL RDW Std Deviation 65.2 H (36.4-46.3) fL RDW Coeff of Ángel 18.2 H (11.5-14.5) % Plt Count 143 (130-400) K/uL MPV 11.2 (9.4-12.4) fL Immature Gran % (Auto) 0.4 % Neut % (Auto) 82.9 % Lymph % (Auto) 8.3 % [place] % (Auto) 5.2 % Eos % (Auto) 2.6 % Baso % (Auto) 0.6 % Neut # (Auto) 5.70 (1.40-6.50) K/uL Lymph # (Auto) 0.57 L (1.20-3.40) K/uL [place] # (Auto) 0.36 (0.11-0.59) K/uL Eos # (Auto) 0.18 (0.00-0.50) K/uL Baso # (Auto) 0.04 (0.00-0.20) K/uL Immature Gran # (Auto) 0.03 (0.01-0.20) K/uL PT 14.0 H (9.0-12.0) Seconds INR 1.3 H (0.9-1.1) APTT 29 (21-31) Seconds PTT Ratio 1.0 VBG pH (7.36-7.41) VBG pCO2 (38-50) mmHg VBG pO2 mmHg VBG HCO3 mmol/L VBG O2 Saturation % VBG Base Excess mEq/L Carboxyhemoglobin % THgb Sodium 139 (136-145) mmol/L Potassium 4.1 (3.5-5.1) mmol/L Chloride 107 (98-107) mmol/L Carbon Dioxide 23 (21-32) mmol/L Anion Gap 9 (3-11) BUN 22 (6-23) mg/dl Creatinine 1.15 (0.6-1.4) mg/dl Est Cr Clr Drug Dosing 35.3 ml/min Est GFR ( Amer) 68.8 ml/min Est GFR (Non-Af Amer) 59.4 ml/min BUN/Creatinine Ratio 19.1 (10-20) Glucose 105 H (70-99(Fasting)) mg/dl Lactate (0.4-2.0) mmol/L Calcium 8.8 (8.6-10.3) mg/dl Magnesium 2.1 (1.7-2.4) mg/dl Total Bilirubin 2.2 H (0.2-1.0) mg/dl Direct Bilirubin 1.1 H (0-0.2) mg/dl AST 42 H (13-39) U/L ALT 45 (7-52) U/L Alkaline Phosphatase 158 H (34-104) U/L Ammonia Troponin I High Sens 18.9 (0-20) pg/ml Total Protein 7.4 (6.0-8.3) gm/dl Albumin 3.4 (3.4-5.0) gm/dl Procalcitonin 0.21 (0-0.5) ng/ml Urine Color Dark Yellow Urine Appearance Clear (Clear) Urine pH 5.5 (4.5-7.5) Ur Specific [place] 1.023 (1.000-1.030) Urine Protein 2+ H (Negative) Urine Glucose (UA) Negative (Negative) Urine Ketones Negative (Negative) Urine Blood Negative (Negative) Urine Nitrite Positive A (Negative) Urine Bilirubin 1+ H (Negative) Urine Urobilinogen Positive H (Negative) Ur Leukocyte Esterase Trace H (Negative) Urine WBC (Auto) 1-5 (0-5) /hpf Urine RBC (Auto) 0-4 (0-4) /hpf U Hyaline Cast (Auto) 5-10 H (0-5) /lpf U Epithel Cells (Auto) >30 H (0-5) /lpf Urine Bacteria (Auto) Negative (Negative) Urine Mucus Present A (None Prsent) Adenovirus (PCR) Not Detected (NotDetected) B. pertussis DNA (PCR) Not Detected (NotDetected) B.parapertussis DNA PCR Not Detected (NotDetected) C. pneumoniae DNA (PCR) Not Detected (NotDetected) Coronavirus OC43 (PCR) Not Detected (NotDetected) Coronavirus HKU1 (PCR) Not Detected (NotDetected) Coronavirus 229E (PCR) Not Detected (NotDetected) SARS-CoV-2 (PCR) Not Detected (NotDetected) Coronavirus NL63 (PCR) Not Detected (NotDetected) Human Metapneumovir PCR Not Detected (NotDetected) Influenza Type A (PCR) Not Detected (NotDetected) Influenza Type B (PCR) Not Detected (NotDetected) M. pneumoniae (PCR) Not Detected (NotDetected) Parainfluenza 1 (PCR) Not Detected (NotDetected) Parainfluenza 2 (PCR) Not Detected (NotDetected) Parainfluenza 3 (PCR) Not Detected (NotDetected) Parainfluenza 4 (PCR) Not Detected (NotDetected) RSV (PCR) Not Detected (NotDetected) Entero/Rhino (PCR) Not Detected (NotDetected) 05/17/23 05/18/23 Range/Units 22:56 00:05 WBC (4.8-10.8) K/ul RBC (4.70-6.10) M/uL Hgb (14.0-18.0) g/dl Hct (42.0-52.0) % MCV (80.0-100.0) fL MCH (25.0-34.0) pg MCHC (32.0-36.0) g/dL RDW Std Deviation (36.4-46.3) fL RDW Coeff of Ángel (11.5-14.5) % Plt Count (130-400) K/uL MPV (9.4-12.4) fL Immature Gran % (Auto) % Neut % (Auto) % Lymph % (Auto) % [place] % (Auto) % Eos % (Auto) % Baso % (Auto) % Neut # (Auto) (1.40-6.50) K/uL Lymph # (Auto) (1.20-3.40) K/uL [place] # (Auto) (0.11-0.59) K/uL Eos # (Auto) (0.00-0.50) K/uL Baso # (Auto) (0.00-0.20) K/uL Immature Gran # (Auto) (0.01-0.20) K/uL PT (9.0-12.0) Seconds INR (0.9-1.1) APTT (21-31) Seconds PTT Ratio VBG pH 7.37 (7.36-7.41) VBG pCO2 42 (38-50) mmHg VBG pO2 20 mmHg VBG HCO3 24 mmol/L VBG O2 Saturation < 60.0 % VBG Base Excess -1.1 mEq/L Carboxyhemoglobin < 0.3 % THgb Sodium (136-145) mmol/L Potassium (3.5-5.1) mmol/L Chloride (98-107) mmol/L Carbon Dioxide (21-32) mmol/L Anion Gap (3-11) BUN (6-23) mg/dl Creatinine (0.6-1.4) mg/dl Est Cr Clr Drug Dosing ml/min Est GFR ( Amer) ml/min Est GFR (Non-Af Amer) ml/min BUN/Creatinine Ratio (10-20) Glucose (70-99(Fasting)) mg/dl Lactate 2.1 H* (0.4-2.0) mmol/L Calcium (8.6-10.3) mg/dl Magnesium (1.7-2.4) mg/dl Total Bilirubin (0.2-1.0) mg/dl Direct Bilirubin (0-0.2) mg/dl AST (13-39) U/L ALT (7-52) U/L Alkaline Phosphatase (34-104) U/L Ammonia TNP 23.0 Troponin I High Sens (0-20) pg/ml Total Protein (6.0-8.3) gm/dl Albumin (3.4-5.0) gm/dl Procalcitonin (0-0.5) ng/ml Urine Color Urine Appearance (Clear) Urine pH (4.5-7.5) Ur Specific [place] (1.000-1.030) Urine Protein (Negative) Urine Glucose (UA) (Negative) Urine Ketones (Negative) Urine Blood (Negative) Urine Nitrite (Negative) Urine Bilirubin (Negative) Urine Urobilinogen (Negative) Ur Leukocyte Esterase (Negative) Urine WBC (Auto) (0-5) /hpf Urine RBC (Auto) (0-4) /hpf U Hyaline Cast (Auto) (0-5) /lpf U Epithel Cells (Auto) (0-5) /lpf Urine Bacteria (Auto) (Negative) Urine Mucus (None Prsent) Adenovirus (PCR) (NotDetected) B. pertussis DNA (PCR) (NotDetected) B.parapertussis DNA PCR (NotDetected) C. pneumoniae DNA (PCR) (NotDetected) Coronavirus OC43 (PCR) (NotDetected) Coronavirus HKU1 (PCR) (NotDetected) Coronavirus 229E (PCR) (NotDetected) SARS-CoV-2 (PCR) (NotDetected) Coronavirus NL63 (PCR) (NotDetected) Human Metapneumovir PCR (NotDetected) Influenza Type A (PCR) (NotDetected) Influenza Type B (PCR) (NotDetected) M. pneumoniae (PCR) (NotDetected) Parainfluenza 1 (PCR) (NotDetected) Parainfluenza 2 (PCR) (NotDetected) Parainfluenza 3 (PCR) (NotDetected) Parainfluenza 4 (PCR) (NotDetected) RSV (PCR) (NotDetected) Entero/Rhino (PCR) (NotDetected) Imaging Data Attestation: I personally reviewed and interpreted this imaging study as follows: My Impression: Chest x-ray: No significant change from the x-ray done on Sep 25 2022 Radiologist's Impression: Chest X-Ray 05/17/23 22:05 SINGLE VIEW CHEST CLINICAL HISTORY: Sepsis FINDINGS: An AP, portable, upright chest radiograph is compared to study dated 09/25/2022. A 2-lead cardiac AICD is unchanged in position and partially obscures the left mid chest. Coronary artery stents are noted. The patient is status post midline sternotomy. The heart is enlarged. The pulmonary vasculature is noncongested. Chronic interstitial thickening is similar to previous. There is bibasilar scarring/atelectasis. The lungs and pleural spaces are otherwise clear. No pneumothorax is seen. The skeletal structures are osteopenic. The bony thorax is grossly intact. IMPRESSION: 1. Cardiomegaly and AICD without radiographic evidence of congestive failure. 2. No airspace consolidation or large pleural effusion is identified. ACT 112: Negative or not required by law. Electronically signed by: Chuck Pacheco M.D. 05/17/2023 10:[address] 05/17/23 22:06 CT SCAN OF THE BRAIN WITHOUT IV CONTRAST CLINICAL HISTORY: Change in mental status. COMPARISON STUDY: No priors. TECHNIQUE: Unenhanced axial CT scan of the brain is performed from the vertex to the skull base. A dose lowering technique was utilized adhering to the principles of ALARA. CT DOSE: 547.75 mGy.cm FINDINGS: Brain parenchyma: There is age-related involutional change noting mild subcortical and periventricular microangiopathic disease. There is no hemorrhage, mass effect, or evidence of acute territorial ischemia by CT criteria. 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 Mineralization is noted in the basal ganglia. Mcgregor-white matter differentiation is preserved. No extra-axial fluid collection is seen. Ventricles, sulci, cisterns: Prominent secondary to involutional change. Intracranial vasculature: There is atherosclerotic calcification of the cavernous carotid and vertebral arteries. Calvarium: Unremarkable. Sinuses and mastoids: The visualized paranasal sinuses are clear. The mastoid air cells are well pneumatized. Orbits: The bony orbits are grossly intact. IMPRESSION: There is no hemorrhage, mass effect, or evidence of acute territorial ischemia by CT criteria. ACT 112: Negative or not required by law. Electronically signed by: Chuck Pacheco M.D. 05/17/2023 10:31 PM ECG Data Attestation: I personally reviewed and interpreted this ECG as follows: Additional Comments: Sinus rhythm with rate of 65. RI 198 QRS [address] elevation or ST depression [facility] Narrative 2150: The patient was evaluated in room A12. A complete history and physical exam was performed Cardiac monitoring: An order was placed for continuous cardiac monitoring. The monitor shows a rate of 70 with sinus rhythm interpreted by me 0010: Vital signs stable. Labs within normal limits with exception of mild lactic acidemia of 2.1 urinalysis does appear to be infected. Patient be treated with Rocephin. Labs are also significant for total bilirubin of 2.2 direct bilirubin of 1.1 AST of 42 alkaline phosphatase 158. Patient has no pain on palpation the abdomen. Imaging is within normal limits. Patient will be admitted to the [facility]ist team. Impression & Plan Altered mental status, Lactic acidemia, Acute UTI Discharge Plan Visit Data Chief Complaint: Confusion Stated Complaint: INCREASED CONFUSION, WEAKNESS ED Provider: Juan Manuel Toussaint Discharge Problem: Altered mental status, Lactic acidemia, Acute UTI Patient Disposition: Admitted As Inpatient Forms Stand Alone Forms: My [facility] Prescriptions Prescriptions: No Action clopidogrel [Plavix] 75 mg Tablet 75 mg PO QAM finasteride [Proscar] 5 mg Tablet 5 mg PO QAM aspirin [Thomas Low Dose Aspirin] 81 mg Tablet,Delayed Release (Dr/Ec) 81 mg PO QAM rosuvastatin 5 mg tablet 5 mg PO DAILY lisinopril 2.5 mg tablet 2.5 mg PO QAM potassium chloride 10 mEq capsule, extended release 10 meq PO BID isosorbide mononitrate 30 mg tablet extended release 24 hr 30 mg PO QAM levothyroxine 100 mcg tablet 100 mcg PO DAILYBB docusate sodium 100 mg Capsule 100 mg PO HS polyethylene glycol 3350 [Miralax] 17 gram/dose Powder 17 g PO DAILY torsemide 10 mg tablet 5 mg PO QAM metoprolol succinate 50 mg tablet extended release 24 hr 50 mg PO BID Rx Instructions: PER GM--"ONLY TAKING ONCE DAILY NON ADHERENCE" Referrals Referrals: Roslyn Gale DO [Primary Care Provider] -
[2023-05-17 23:47] LABS: Mucus Urine Present (None Prsent)
[2023-05-17] MEDS ORDERED: cefTRIAXone SODIUM 2,000 MG/50 ML BAG IV STA (23:54)
[2023-05-18 00:04] LABS: Adenovirus PCR Not Detected (NotDetected); Bordetella parapertussis PCR Not Detected (NotDetected); Bordetella pertussis PCR Not Detected (NotDetected); Chlamydia pneumoniae PCR Not Detected (NotDetected); Coronavirus 229E PCR Not Detected (NotDetected); Coronavirus CoV-2 (COVID19)PCR Not Detected (NotDetected); Coronavirus HKU1 PCR Not Detected (NotDetected); Coronavirus NL63 PCR Not Detected (NotDetected); Coronavirus OC43PCR Not Detected (NotDetected); Human Metapneumovirus PCR Not Detected (NotDetected); Influenza A PCR Not Detected (NotDetected); Influenza B PCR Not Detected (NotDetected); Mycoplasma pneumoniae PCR Not Detected (NotDetected); Parainfluenza Virus 1 PCR Not Detected (NotDetected); Parainfluenza Virus 2 PCR Not Detected (NotDetected); Parainfluenza Virus 3 PCR Not Detected (NotDetected); Parainfluenza Virus 4 PCR Not Detected (NotDetected); Respiratory Syncytial VirusPCR Not Detected (NotDetected); Rhinovirus/Enterovirus PCR Not Detected (NotDetected)
--- NOTE | 2023-05-18 05:26 | History & Physical Report ---
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 Seems no falls. Patient currently alert and awake and oriented. Currently family not in the room. His main concern is losing weight. Denies any headache. Denies cough. No runny nose or sore throat. No chest pain. No shortness of breath. No nausea. No abdominal pain. Normal bowel and bladder movements as per patient.As per cardiology notes patient had 2 cardiac arrest. First in 2009 when he received secondary prevention ICD. Second cardiac arrest in 2020 and was rescued by his ICD. He is having significant weight loss and chris cachexia. Amiodarone was stopped because of possible toxicity .Also CAT scan of the chest was showing enlargement of left atrium with compression of the esophagus which is not unexpected considering his severe heart disease and could be contributing to his anorexia as per cardiology notes. Seems lately his appetite is slightly better. Altered mental status Possible from UTI Initial lactic acid was 2.1 repeat is 1.6 Received IV Rocephin which will be continued Gentle fluids IV normal saline 50 mill per hour for 1 L Will follow cultures Close monitor History of chronic systolic CHF EF 15 to 20% S/p ICD Currently getting gentle fluids Holding torsemide and potassium supplements Restart diuretics as soon as possible Monitor for volume overload History of CAD s/p CABG S/p stents Continue aspirin, Plavix, Imdur, Toprol and rosuvastatin History of ventricular fibrillation and cardiac arrest S/p ICD Hypertension On Imdur, Toprol, lisinopril Will monitor BPH On Proscar CKD stage III Presented creatinine 1.15 Will follow Malnutrition Dietitian consult Follow-up with PCP DVT prophylaxis Heparin subcu Disposition Med/tele Full code History of Present Illness Chief Complaint: Confusion, UTI Primary Care Provider: Roslyn Gale DO 82-year-old male with past medical history significant for hyperlipidemia, hypothyroidism, 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 Seems no falls. Patient currently alert and awake and oriented. Currently family not in the room. His main concern is losing weight. Denies any headache. Denies cough. No runny nose or sore throat. No chest pain. No shortness of breath. No nausea. No abdominal pain. Normal bowel and bladder movements as per patient.As per cardiology notes patient had 2 cardiac arrest. First in 2009 when he received secondary prevention ICD. Second cardiac arrest in 2020 and was rescued by his ICD. He is having significant weight loss and chris cachexia. Amiodarone was stopped because of possible toxicity .Also CAT scan of the chest was showing enlargement of left atrium with compression of the esophagus which is not unexpected considering his severe heart disease and could be contributing to his anorexia as per cardiology notes. Seems lately his appetite is slightly better. Past medical history. As mentioned above Past surgical history. CABG in 1980 and with redo in 1999. S/p ICD. status postcardiac stents. Laparoscopic cholecystectomy. Appendectomy. Tonsillectomy. Removal of bladder stone. Social history. No smoking. No alcohol use. No drug use. Family history. All brothers have heart disease. Father had CVA. Mother had lung cancer. Allergies Allergy/AdvReac Type Severity Reaction Status Date / Time pantoprazole [From Protonix] Allergy Intermediate Hives Verified 05/17/23 22:21 sucralfate Allergy Intermediate Hives Verified 05/17/23 22:21 Home Medications Medication Instructions Recorded Confirmed Type aspirin 81 mg tablet,delayed 81 mg PO QAM 01/16/18 05/17/23 History release (Thomas Low Dose Aspirin) clopidogrel 75 mg tablet (Plavix) 75 mg PO QAM 01/16/18 05/17/23 History finasteride 5 mg tablet (Proscar) 5 mg PO QAM 01/16/18 05/17/23 History rosuvastatin 5 mg tablet 5 mg PO DAILY 01/01/22 05/17/23 History metoprolol succinate 50 mg 50 mg PO BID 09/25/22 05/17/23 History tablet,extended release 24 hr lisinopril 2.5 mg tablet 2.5 mg PO QAM 01/28/23 05/17/23 History docusate sodium 100 mg capsule 100 mg PO HS 05/17/23 05/17/23 History isosorbide mononitrate 30 mg 30 mg PO QAM 05/17/23 05/17/23 History tablet,extended release 24 hr levothyroxine 100 mcg tablet 100 mcg PO DAILYBB 05/17/23 05/17/23 History polyethylene glycol 3350 17 17 g PO DAILY 05/17/23 05/17/23 History gram/dose oral powder (Miralax) potassium chloride 10 mEq 10 meq PO BID 05/17/23 05/17/23 History capsule,extended release torsemide 10 mg tablet 5 mg PO QAM 05/17/23 05/17/23 History Past Med/Surg History Medical History Pacemaker PLACED 2012 LAST CHECKED VIA REMOTE 09/20/2017 ICD (implantable cardioverter-defibrillator) in place PLACED 2012 @ [facility] LAST CHECKED VIA REMOTE 09/20/2017 Systolic CHF HTN (hypertension) GERD (gastroesophageal reflux disease) Hypothyroidism CKD (chronic kidney disease) stage 3, GFR 30-59 ml/min Prostate cancer Dx 2011, surveillance only BPH (benign prostatic hyperplasia) H/O cardiac arrest Stable angina pectoris Ischemic cardiomyopathy EF 30-35% H/O myocardial ischemia CAD (coronary artery disease) Surgical History History of tonsillectomy History of appendectomy Encounter for insertion of cardiac resynchronization therapy defibrillator History of cardiac cath X6 STENTS (2012 & 2014 [place]) UNSURE OF DATES -- WILL BRING STENT CARDS DOS H/O two vessel coronary artery bypass graft 1990 and 1999 Family History Other Coronary heart disease Social History Smoking Status: Never smoker Second Hand Exposure: No; Do You Dip or Chew Tobacco: No; Hx Alcohol Use: No Hx Substance Use: No Preferred Language: Guamanian Communication Ability: Effective Manager Book Required: No Beliefs That Will Affect Care: None marital status: Unknown Current Living Situation: Family Feels Safe at Home: Yes Assistive Devices: None Review of Systems Review of Systems: All systems reviewed & are unremarkable except as noted in HPI & below Physical Exam Physical Exam: General- Not in distress Head- atraumatic Eyes- PERRL. ENT- oropharynx clear Neck- supple, no JVD. Lungs- clear to auscultation no wheezing or crackles. Heart- regular rhythm; no murmur, no gallop. Abdomen- normal bowel sounds, soft, nontender, no distension. Extremities- no pretibial edema, no erythema t Neuro- alert, oriented x 3; PERRL,no facial palsy; no dysarthria; moves extremities. Skin- warm & dry Results & Data Results & Data Vital Signs (Past 12 Hours) Vital Signs Temp Pulse Pulse Resp BP BP Pulse Ox 05/18/23 04:00 77 16 140/99 98 05/18/23 03:12 73 18 132/90 96 05/18/23 02:01 64 20 131/89 05/18/23 01:35 63 05/18/23 01:30 62 21 92 05/18/23 01:00 63 12 127/85 93 05/18/23 00:30 65 23 132/90 05/18/23 00:00 66 22 05/17/23 23:30 65 24 05/17/23 23:00 66 23 05/17/23 22:57 36.8 C 68 15 116/82 97 05/17/23 22:57 66 15 97 05/17/23 21:46 66 05/17/23 21:36 68 116/82 05/17/23 21:36 05/17/23 21:36 36.8 C 68 15 116/82 97 O2 Del Method 05/18/23 04:00 Room Air 05/18/23 03:12 Room Air 05/18/23 02:01 05/18/23 01:35 05/18/23 01:30 05/18/23 01:00 05/18/23 00:30 05/18/23 00:00 05/17/23 23:30 05/17/23 23:00 05/17/23 22:57 Room Air 05/17/23 22:57 Room Air 05/17/23 21:46 05/17/23 21:36 05/17/23 21:36 Room Air 05/17/23 21:36 Room Air Diagnostic Findings Laboratory Results WBC 6.88 K/ul (4.8-10.8) 05/17/23 21:54 RBC 3.67 M/uL (4.70-6.10) L 05/17/23 21:54 Hgb 11.4 g/dl (14.0-18.0) L 05/17/23 21:54 Hct 36.6 % (42.0-52.0) L 05/17/23 21:54 MCV 99.7 fL (80.0-100.0) 05/17/23 21:54 MCH 31.1 pg (25.0-34.0) 05/17/23 21:54 MCHC 31.1 g/dL (32.0-36.0) L 05/17/23 21:54 RDW Std Deviation 65.2 fL (36.4-46.3) H 05/17/23 21:54 RDW Coeff of Ángel 18.2 % (11.5-14.5) H 05/17/23 21:54 Plt Count 143 K/uL (130-400) 05/17/23 21:54 MPV 11.2 fL (9.4-12.4) 05/17/23 21:54 Immature Gran % (Auto) 0.4 % 05/17/23 21:54 Neut % (Auto) 82.9 % 05/17/23 21:54 Lymph % (Auto) 8.3 % 05/17/23 21:54 Garrard % (Auto) 5.2 % 05/17/23 21:54 Eos % (Auto) 2.6 % 05/17/23 21:54 Baso % (Auto) 0.6 % 05/17/23 21:54 Neut # (Auto) 5.70 K/uL (1.40-6.50) 05/17/23 21:54 Lymph # (Auto) 0.57 K/uL (1.20-3.40) L 05/17/23 21:54 Garrard # (Auto) 0.36 K/uL (0.11-0.59) 05/17/23 21:54 Eos # (Auto) 0.18 K/uL (0.00-0.50) 05/17/23 21:54 Baso # (Auto) 0.04 K/uL (0.00-0.20) 05/17/23 21:54 Immature Gran # (Auto) 0.03 K/uL (0.01-0.20) 05/17/23 21:54 PT 14.0 Seconds (9.0-12.0) H 05/17/23 21:54 INR 1.3 (0.9-1.1) H 05/17/23 21:54 APTT 29 Seconds (21-31) 05/17/23 21:54 PTT Ratio 1.0 05/17/23 21:54 VBG pH 7.37 (7.36-7.41) 05/17/23 22:56 VBG pCO2 42 mmHg (38-50) 05/17/23 22:56 VBG pO2 20 mmHg 05/17/23 22:56 VBG HCO3 24 mmol/L 05/17/23 22:56 VBG O2 Saturation < 60.0 % 05/17/23 22:56 VBG Base Excess -1.1 mEq/L 05/17/23 22:56 Carboxyhemoglobin < 0.3 % TH 05/17/23 22:56 Sodium 139 mmol/L (136-145) 05/17/23 21:54 Potassium 4.1 mmol/L (3.5-5.1) 05/17/23 21:54 Chloride 107 mmol/L (98-107) 05/17/23 21:54 Carbon Dioxide 23 mmol/L (21-32) 05/17/23 21:54 Anion Gap 9 (3-11) 05/17/23 21:54 BUN 22 mg/dl (6-23) 05/17/23 21:54 Creatinine 1.15 mg/dl (0.6-1.4) 05/17/23 21:54 Est Cr Clr Drug Dosing 35.3 ml/min 05/17/23 21:54 Est GFR ( Amer) 68.8 ml/min 05/17/23 21:54 Est GFR (Non-Af Amer) 59.4 ml/min 05/17/23 21:54 BUN/Creatinine Ratio 19.1 (10-20) 05/17/23 21:54 Glucose 105 mg/dl (70-99(Fasting)) H 05/17/23 21:54 Lactate 1.6 mmol/L (0.4-2.0) 05/18/23 01:40 Calcium 8.8 mg/dl (8.6-10.3) 05/17/23 21:54 Magnesium 2.1 mg/dl (1.7-2.4) 05/17/23 21:54 Total Bilirubin 2.2 mg/dl (0.2-1.0) H 05/17/23 21:54 Direct Bilirubin 1.1 mg/dl (0-0.2) H 05/17/23 21:54 AST 42 U/L (13-39) H 05/17/23 21:54 ALT 45 U/L (7-52) 05/17/23 21:54 Alkaline Phosphatase 158 U/L (34-104) H 05/17/23 21:54 Ammonia 23.0 umol/L (18-72) 05/18/23 00:05 Troponin I High Sens 18.9 pg/ml (0-20) 05/17/23 21:54 Total Protein 7.4 gm/dl (6.0-8.3) 05/17/23 21:54 Albumin 3.4 gm/dl (3.4-5.0) 05/17/23 21:54 Procalcitonin 0.21 ng/ml (0-0.5) 05/17/23 21:54 Urine Color Dark Yellow 05/17/23 22:35 Urine Appearance Clear (Clear) 05/17/23 22:35 Urine pH 5.5 (4.5-7.5) 05/17/23 22:35 Ur Specific [place] 1.023 (1.000-1.030) 05/17/23 22:35 Urine Protein 2+ (Negative) H 05/17/23 22:35 Urine Glucose (UA) Negative (Negative) 05/17/23 22:35 Urine Ketones Negative (Negative) 05/17/23 22:35 Urine Blood Negative (Negative) 05/17/23 22:35 Urine Nitrite Positive (Negative) A 05/17/23 22:35 Urine Bilirubin 1+ (Negative) H 05/17/23 22:35 Urine Urobilinogen Positive (Negative) H 05/17/23 22:35 Ur Leukocyte Esterase Trace (Negative) H 05/17/23 22:35 Urine WBC (Auto) 1-5 /hpf (0-5) 05/17/23 22:35 Urine RBC (Auto) 0-4 /hpf (0-4) 05/17/23 22:35 U Hyaline Cast (Auto) 5-10 /lpf (0-5) H 05/17/23 22:35 U Epithel Cells (Auto) >30 /lpf (0-5) H 05/17/23 22:35 Urine Bacteria (Auto) Negative (Negative) 05/17/23 22:35 Urine Mucus Present (None Prsent) A 05/17/23 22:35 Adenovirus (PCR) Not Detected (NotDetected) 05/17/23 22:55 B. pertussis DNA (PCR) Not Detected (NotDetected) 05/17/23 22:55 B.parapertussis DNA PCR Not Detected (NotDetected) 05/17/23 22:55 C. pneumoniae DNA (PCR) Not Detected (NotDetected) 05/17/23 22:55 Coronavirus OC43 (PCR) Not Detected (NotDetected) 05/17/23 22:55 Coronavirus HKU1 (PCR) Not Detected (NotDetected) 05/17/23 22:55 Coronavirus 229E (PCR) Not Detected (NotDetected) 05/17/23 22:55 SARS-CoV-2 (PCR) Not Detected (NotDetected) 05/17/23 22:55 Coronavirus NL63 (PCR) Not Detected (NotDetected) 05/17/23 22:55 Human Metapneumovir PCR Not Detected (NotDetected) 05/17/23 22:55 Influenza Type A (PCR) Not Detected (NotDetected) 05/17/23 22:55 Influenza Type B (PCR) Not Detected (NotDetected) 05/17/23 22:55 M. pneumoniae (PCR) Not Detected (NotDetected) 05/17/23 22:55 Parainfluenza 1 (PCR) Not Detected (NotDetected) 05/17/23 22:55 Parainfluenza 2 (PCR) Not Detected (NotDetected) 05/17/23 22:55 Parainfluenza 3 (PCR) Not Detected (NotDetected) 05/17/23 22:55 Parainfluenza 4 (PCR) Not Detected (NotDetected) 05/17/23 22:55 RSV (PCR) Not Detected (NotDetected) 05/17/23 22:55 Entero/Rhino (PCR) Not Detected (NotDetected) 05/17/23 22:55 Impressions Chest X-Ray 05/17/23 22:05 SINGLE VIEW CHEST CLINICAL HISTORY: Sepsis FINDINGS: An AP, portable, upright chest radiograph is compared to study dated 09/25/2022. A 2-lead cardiac AICD is unchanged in position and partially obscures the left mid chest. Coronary artery stents are noted. The patient is status post midline sternotomy. The heart is enlarged. The pulmonary vasculature is noncongested. Chronic interstitial thickening is similar to previous. There is bibasilar scarring/atelectasis. The lungs and pleural spaces are otherwise clear. No pneumothorax is seen. The skeletal structures are osteopenic. The bony thorax is grossly intact. IMPRESSION: 1. Cardiomegaly and AICD without radiographic evidence of congestive failure. 2. No airspace consolidation or large pleural effusion is identified. ACT 112: Negative or not required by law. Electronically signed by: Chuck Pacheco M.D. 05/17/2023 10:[address] 05/17/23 22:06 CT SCAN OF THE BRAIN WITHOUT IV CONTRAST CLINICAL HISTORY: Change in mental status. COMPARISON STUDY: No priors. TECHNIQUE: Unenhanced axial CT scan of the brain is performed from the vertex to the skull base. A dose lowering technique was utilized adhering to the principles of ALARA. CT DOSE: 547.75 mGy.cm FINDINGS: Brain parenchyma: There is age-related involutional change noting mild subcortical and periventricular microangiopathic disease. There is no hemorrhage, mass effect, or evidence of acute territorial ischemia by CT criteria. 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 Mineralization is noted in the basal ganglia. Mcgregor-white matter differentiation is preserved. No extra-axial fluid collection is seen. Ventricles, sulci, cisterns: Prominent secondary to involutional change. Intracranial vasculature: There is atherosclerotic calcification of the cavernous carotid and vertebral arteries. Calvarium: Unremarkable. Sinuses and mastoids: The visualized paranasal sinuses are clear. The mastoid air cells are well pneumatized. Orbits: The bony orbits are grossly intact. IMPRESSION: There is no hemorrhage, mass effect, or evidence of acute territorial ischemia by CT criteria. ACT 112: Negative or not required by law. Electronically signed by: Chuck Pacheco M.D. 05/17/2023 10:31 PM ECG Additional Comments: ECG. Normal sinus rhythm rate of 65. Nonspecific intraventricular conduction block. Nonspecific T wave abnormalities. Code Status & VTE Plan VTE Prophylaxis Plan VTE Prophylaxis will be ordered: Yes
[2023-05-18] MEDS ORDERED: NITROGLYCERIN SL 0.4 MG/TAB TAB SL PRN (05:56)
[2023-05-18] MEDS ORDERED: SODIUM CHLORIDE 0.9% 1,000 ML IV SCH (05:56)
[2023-05-18] MEDS: LEVOTHYROXINE SODIUM 100 MCG TABLET PO SCH (06:44)
[2023-05-18] MEDS: FINASTERIDE 5 MG TAB PO SCH (08:00)
[2023-05-18] MEDS: ASPIRIN 81 MG ECTAB PO SCH (08:00)
[2023-05-18] MEDS: CLOPIDOGREL BISULFATE 75 MG TAB PO SCH (08:00)
[2023-05-18] MEDS: HEPARIN SOD 5,000 UNIT/0.5 ML VIAL SQ SCH ×2 (08:01→20:29)
[2023-05-18] MEDS: POLYETHYLENE (MIRALAX) 17 GM PACK PO SCH (08:02)
[2023-05-18] MEDS: ISOSORBIDE MONO EXTENDED REL 30 MG TABCR PO SCH (08:02)
[2023-05-18] MEDS: METOPROLOL SUCC 50MG EXT REL TAB PO SCH ×2 (08:02→20:29)
[2023-05-18] MEDS: ROSUVASTATIN CALCIUM 5 MG TAB PO SCH (08:02)
[2023-05-18] MEDS: lisinopril 2.5 MG TAB PO SCH (08:02)
[2023-05-18 08:51] LABS: Basophils # (auto) 0.04 K/uL (0.00-0.20); Basophils % (auto) 0.6 %; Eosinophils # (auto) 0.11 K/uL (0.00-0.50); Eosinophils % (auto) 1.7 %; Hemoglobin 11.1 g/dl (14.0-18.0); Immature Granulocytes # (auto) 0.03 K/uL (0.01-0.20); Immature Granulocytes % (auto) 0.5 %; Lymphocytes # (auto) 0.71 K/uL (1.20-3.40); Mean Corpuscular Hemoglobin 31.4 pg (25.0-34.0); Mean Corpuscular Hgb Conc 31.7 g/dL (32.0-36.0); Mean Corpuscular Volume 98.9 fL (80.0-100.0); Mean Platelet Volume 11.2 fL (9.4-12.4); Monocytes # (auto) 0.37 K/uL (0.11-0.59); Monocytes % (auto) 5.8 %; Neutrophils # (auto) 5.17 K/uL (1.40-6.50); Neutrophils % (auto) 80.4 %; Platelet Count 146 K/uL (130-400); RDW Standard Deviation 64.4 fL (36.4-46.3); Red Blood Count 3.54 M/uL (4.70-6.10); White Blood Count 6.43 K/ul (4.8-10.8)
[2023-05-18 08:54] LABS: BUN Creatinine Ratio 19.4 (10-20); Calcium 8.4 mg/dl (8.6-10.3); Creatinine Clr Calc Pharmacy 37.6 ml/min; Est GFR (African American) 74.2 ml/min; Magnesium 2.1 mg/dl (1.7-2.4)
--- OUTSIDE RECORDS SUMMARY | 2023-05-18 10:47 | External Medical Summary | Summary of Care ---
Author Name Unknown Organization [facility] Address [address] [place] [address] Phone [phone] Care Team Providers Care Assembler Trim Name Role Phone Roslyn Gale DO Primary Care Provider [phone]- [phone] Encounter Details Date Type Department Care Team (Late st Contact Info) Description 04/22/2023 8:00 AM EST Home Visit Care Coordination and Integration [address], [place] [id number] Rebecca Roque, Community Health Capacity Planning Manager [address] [place] [address], [place] [phone] Allergies Active Allergy Reactions Criticality Noted Date Comments Pantoprazole Hives 01/13/2016 Sucralfate Hives 01/13/2016 documented as of this encounter (statuses as of 04/25/2023) Medications Medication Sig Dispensed Refills Start Date End Date Status ASPIRIN 81 MG PO CHEWIndications:INTE RFACED RESULT Take 1 tablet by mouth daily 32 Tab 11 03/24/2013 Active Nitroglycerin 0.4 MG Sublingual Tablet Sublingual (Nitrostat)Indicatio ns:Cardiac arrest (HCC),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 25 Tablet 3 05/11/2021 Active Additional Information Patient not taking.Reported on 04/03/2023 Finasteride 5 MG Oral Tablet (Proscar)Indications :BPH with obstruction/lower urinary tract symptoms,Prostate cancer (HCC) Take 1 Tablet by mouth in the morning. 90 Tablet 3 05/22/2022 Active Rosuvastatin Calcium 5 MG Oral Tablet (Crestor)Indications :Dyslipidemia, goal LDL below 70 Take 1 Tablet by mouth in the morning. 90 Tablet 3 05/24/2022 Active Docusate Sodium 100 MG Oral Capsule (Colace)Indications: Constipation, unspecified constipation type Take 1 Capsule by mouth every night at bedtime. 90 Capsule 3 10/19/2022 Active Torsemide 10 MG Oral Tablet (Demadex) Take 0.5 Tablets by mouth in the morning. 90 Tablet 3 10/24/2022 Active Isosorbide Mononitrate ER 30 MG Oral Tablet Extended Release 24 Hour (Imdur)Indications:H eart failure, systolic, due to CAD Take 1 Tablet by mouth in the morning. 90 Tablet 3 10/26/2022 Active Lisinopril 2.5 MG Oral Tablet (Prinivil) Take 1 Tablet by mouth in the morning. 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 850 g 5 03/28/2023 Active Levothyroxine Sodium 100 MCG Oral Tablet (Synthroid)Indicatio ns:Acquired hypothyroidism Take 1 Tablet by mouth in the morning. (at least 30 min prior to breakfast or other meds). 90 Tablet 1 04/10/2023 Active Potassium Chloride ER 10 MEQ Oral Capsule Extended ReleaseIndications:H ypokalemia Take 1 Capsule by mouth in the morning and 1 Capsule before bedtime. 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, model [id number] Fortify, serial number [id number]. -Atrial lead digital business analyst [employer], model [id number]-52 Tendril SDX, serial number [id number]. -Right ventricular defibrillator lead digital business analyst [employer], model [id number]-65 Durata, serial number [id number]. 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 stage 3 chronic kidney disease 04/22/2017 09/22/2020 Overview: Per CKD protocol Gastroesophageal reflux dise ase without esophagitis 08/04/2015 2015 HTN, goal below 140/90 04/04/201512/04 Kidney disease, chronic, sta ge III (GFR 30-59 ml/min) 12/13/2014 08/23/2017 Overview: Per CKD protocol #1 Prostate cancer 08/20/2014 07/13/2021 CAD (coronary artery disease) 07/21/2014 11/10/2018 Stable angina 04/22/2014 2015 Heart failure, systolic, due to CAD 04/03/2013 04/22/2017 Atrial flutter 03/23/2013 06/19/2016 HTN (hypertension) 03/18/2013 5 Pharyngeal dysphagia 03/18/2013 016 Electrolyte and fluid disorder 03/15/2013 08/04/2015 Pulmonary edema cardiac cause 03/15/2013 06/19/2016 Arrhythmia 03/15/2013 08/04/2015 Elevated liver enzymes 03/15/201306/19 Metabolic acidosis 03/15/2013 6 Cardiac arrest 03/14/2013 10/23/2016 Respiratory failure, acute 03/14/2013 1 06/04/2014 documented as of this encounter (statuses as of 04/25/2023) Immunizations Name Administration Dates Next Due Pneumococcal Conjugate Vacc, 13 Valent (Prevnar) 2015 Pneumococcal Conjugate Vacci ne, 7 Valent 04/01/2014 Pneumococcal Polysaccharide PPV23 (Pneumovax) 03/21/2013 Seasonal Influenza Virus Vac cine, Unspecified Formulation 01/30/2022,01/13/2021,03/09/2020,02/17,04/22/2018,04/22/2017,03/21/2013 Seasonal Influenza, PF, 6 M & above, IM , (FluLaval or Fluzone) 03/09/2020,02/17/2019,04/22/2018 Seasonal Influenza, Quadriva lent Hd (Fluzone Hd) 03/28/2023,01/30/2022,01/13/2021 Seasonal Influenza, Quadriva lent, No Preserve, IM 04/04/2015 Seasonal Influenza, Split, I IV3, With Preserve, Inj 03/29/2014,03/21/2013 Seasonal Influenza, Trivalen t, High Dose, No Preserve, IM 04/22/2017 TDAP (age 11 and older)(Adacel) 04/08/2023,04/12 Varicella Zoster Vaccine (Adult) 05/17/2014 documented as of this encounter Social History Tobacco Use Types Packs/Day Years Used Date Smoking Tobacco: Never Smokeless Tobacco: Never Alcohol Use Standard Drinks/Week Comments No 0 (1 standard drink = 0.6 oz pur e alcohol) PHQ-2 Answer Date Recorded PHQ-2 Score 0 05/18/2019 Hunger Vital Sign Answer Date Recorded Within the past 12 months, y ou worried that your food would run out before you got the money to buy more. Never true 04/22/20 23 Within the past 12 months, t he food you bought just didn't last and you didn't have money to get more. Never true 04/22/2023 Sex and Gender Information Value Date Recorded Sex Assigned at Not on file Gender Identity Not on file Sexual Orientation Not on file Job Start Date Occupation Industry Not on file Not on file Not on file documented as of this encounter Last Filed Vital Signs Vital Sign Reading Time Taken Comments Blood Pressure 98/64 04/22/2023 10:22 AM EST Pulse 59 04/22/2023 10:22 AM EST Temperature 36.7 C (98.1 F) 04/22/2023 10:[address] Respiratory Rate 16 04/22/2023 10:22 AM EST Oxygen Saturation 98% 04/22/2023 10:22 AM EST Inhaled Oxygen Concentration - - Weight - - Height - - Body Mass Index - - documented in this encounter Progress Notes * Rebecca Roque Community Health Capacity Planning Manager - 04/22/2023 10:25 AM EST Telemedicine visit: No Community Health Capacity Planning Manager ([facility]) documentation: [facility] home visit per the request of [facility] BP 98/64 (BP Site: Left Arm, BP Position: Sitting, BP Cuff Size: Regular) | Pulse 59 | Temp 36.7 C (98.1 F) (Infrared ) | Resp 16 | SpO2 98% Son, Jose Sanz, present for visit Taking all meds as prescribed--son manages pill box Resides in small apartment set-up within grandson's home. Son lives across driveway Multiple family members check on pt throughout day Son reports main concern is weakness and appetite Prefers soft, moist foods--mainly eating soups, pudding, yogurt, soft breads Reports multiple falls in past 6 months--one fall at PCP office required stitches on nose Has walker present, but not using for all ambulation; furniture surfs thru home Discussed waiver paperwork---son does not feel patient needs waiver at this time; declines help in home, states family will continue to care for patient as his health declines. Discussed AAA referral---referral placed by CM in March, pt has not heard from office to schedule intake visit. Son also reluctant about AAA involvement, does not feel pt needs at this time Discussed PERS d/t frequent falls---declines at this time; per son, "someone is always home and cancome check on him" Discussed falls thru night, states "he always has cordless phone nearby and would call for help if he needed it" Discussed MOW---does not feel pt would be able to eat most of the foods d/t textures; may be interested in revisiting MOW referral if pt is able to put on some weight and able to tolerate more foods in future. Discussed DME---has walker and DIL just purchased raised toilet seat. Interested in shower chair; message to CM to place order Plans to keep Palliative appt tmrw, though does not understand need for multiple specialist appts. Prefers PCP and Cardiology manage majority of care. Denies further needs/concerns documented in this encounter Plan of Treatment Upcoming Encounters Date Type Department Care Team (Late st Contact Info) Description 04/30/2023 12:20 PM EST Office Visit Family Practice [address] [place] [address] Paul Brandt PA-C [address] [place] [address] 05/22/2023 8:15 AM EST Office Visit Urology [facility] [address] [place] [address] [place] [address] Ronny Mackey Jr., MD [address] [place] [address] [place] [address] 07/02/2023 2:30 PM EST Office Visit Cardiology, [facility] [address] [place] [address] Candace Adhikari CRNP [address] [place] [address] 10/04/2023 7:20 AM EDT Office Visit Family Practice [place] [facility] [address] [place] [id number] Roslyn Gale DO [address] [place] [address] Health Maintenance Due Date Last Done Comments COVID-19 Vaccine (#1) 06/07/1941 Zoster Vaccines (2 of 3) 07/12/2014 05/17/2014 Depression Screening 11/22/2020 11/23/2019 Albumin/Creatinine Ratio 10/06/2023 023, 04/15/2017, 11/10/2014 GFR 10/07/2023 04/08/2023, 10/13, 10/24/2022, Additional history exists CKD HGB USE SMARTSET 01805 04/08/202404/08, 04/08/2023, 10/24/2022, Additional history exists CKD PHOS USE SMARTSET 30276 04/08/202403/14, 01/23/2022, 01/13/2021, Additional history exists TSH 04/08/2024 04/08/2023, 10/11, 10/24/2022, Additional history exists DTaP,Tdap,and Td Vaccines (3 - Td or Tdap) 04/08/2033 04/08/2023, 04/12/2014 Pneumococcal Vaccine: 65+ Years Completed 2015, 03/21/2013 Influenza Vaccine (FLU shot) Completed , 01/30/2022, 01/30/2022, Additional history exists GARDASIL-HPV IMMUNIZATION SERIES Aged Out No longer eligible based on patient's age to complete this topic Hepatitis B Aged Out No longer eligi ble based on patient's age to complete this topic MENINGOCOCCAL (MENACTRA/MENVEO) Aged Out No longer eligible based on patient's age to complete this topic documented as of this encounter Medical Devices Not on filedocumented as of this encounter Advance Directives Latest Code Status on File Code Status Date Activated Date Inactivated Comments Full Code 02/29/2020 12:43 PM 02/29/2020 7:27 PM Th is order reflects the patients wishes and were consensually agreed upon. Question Answer Comments Discussion of Advance Directives occurred with: Not Discussed Does the patient have a Living Will? No Does the patient have Health Care Power of Director Clinical Operations? No Code Status History Code Status Date Activated Date Inactivated Comments Full Code 07/27/2014 1:43 PM 07/28/2014 2:00 PM This order reflects the patients wishes and were consensually agreed upon. Question Answer Comments Discussion of Advance Directives occurred with: Not Discussed Does the patient have a Living Will? No Does the patient have Health Care Power of Director Clinical Operations? No Full Code 07/21/2014 11:34 AM 07/21/2014 10:34 PM Thi s order reflects the patients wishes and were consensually agreed upon. Question Answer Comments Discussion of Advance Directives occurred with: Not Discussed Does the patient have a Living Will? No Does the patient have Health Care Power of Director Clinical Operations? No Full Code 03/14/2013 10:18 PM 03/25/2013 2:39 PM Thi s order reflects the patients wishes and were consensually agreed upon. Question Answer Comments Discussion of Advance Directives occurred with: Not Discussed Does the patient have a Living Will? No Does the patient have Health Care Power of Director Clinical Operations? No Healthcare Agents on File Name Relationship Healthcare Agent Relationship Communication Jose HENDRIX Adult Child Health Early Breastfeeding Care Specialist resentative (appointed verbally by patient or by statute hierarchy) Care Teams Assembler Trim Relationship Specialty Start Date End Date Roslyn Gale DO [address] [facility] [place] [address] PCP - General Family Medicine 11/10/18 documented as of this encounter
--- OUTSIDE RECORDS SUMMARY | 2023-05-18 10:47 | External Medical Summary | Summary of Care ---
Author Name Unknown Organization [facility] Address [address] [place] [address] Phone [phone] Care Team Providers Care Seo Coordinator Name Role Phone Roslyn Gale DO Primary Care Provider +1- [phone] Encounter Details Date Type Department Care Team (Late st Contact Info) Description 04/26/2023 12:30 PM EST Home Visit Care Coordination and Integration [address] [place], [place] [phone] Rebecca Roque, Community Health Public Safety Officer [address] [employer], [place] [phone] Allergies Active Allergy Reactions Criticality Noted Date Comments Pantoprazole Hives 01/13/2016 Sucralfate Hives 01/13/2016 documented as of this encounter (statuses as of 04/26/2023) Medications Medication Sig Dispensed Refills Start Date End Date Status ASPIRIN 81 MG PO CHEWIndications:INTE RFACED RESULT Take 1 tablet by mouth daily 32 Tab 11 03/24/2013 Active Nitroglycerin 0.4 MG Sublingual Tablet Sublingual (Nitrostat)Indicatio ns:Cardiac arrest (HCC),Atherosclerosi s of koi coronary artery of koi heart with stable angina pectoris (HCC),Crescendo angina [...] Oral Tablet (pLAVix)Indications: Cardiomyopathy, ischemic,Atheroscler osis of koi coronary artery of koi heart with stable angina pectoris (HCC) take 1 tablet by mouth once daily 90 Tablet 3 02/23/2023 Active Metoprolol Succinate ER 50 MG Oral Tablet Extended Release 24 Hour (toPROL XL)Indications:Ather osclerosis of koi coronary artery of koi heart with stable angina pectoris (HCC),Cardiomyopathy , [...] as of this encounter (statuses as of 04/26/2023) Active Problems Problem Noted Date Diagnosed Date Osteoarthritis, knee 03/28/2023 Protein-calorie malnutrition 10/19/2022 VT (ventricular tachycardia) 07/13/2021 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 stage 3 chronic kidney disease 07/13/2021 VF (ventricular fibrillation) 05/11/2021 S/P drug eluting coronary stent placement 2020 Heart failure, systolic, due to CAD 07/13/2020 Atherosclerosis of koi co ronary artery of koi heart with stable angina pectoris 11/10/2018 History of cardiac arrest 11/10/2018 History of prostate cancer 04/22/2017 S/P CABG (coronary artery bypass graft) 04/22/20 17 Statin intolerance 10/23/2016 Gastroesophageal reflux disease with esophagitis 2015 HTN, goal below 130/80 2015 BPH without obstruction/lower urinary tract symp toms 08/20/2014 ICD (implantable cardioverter-defibrillator) in place 03/20/2013 Overview: -Cardioverter-defibrillator liquor tester [employer], model [id number] Fortify, serial number [id number]. -Atrial lead liquor tester [employer], model [id number]-52 Tendril SDX, serial number [id number]. -Right ventricular defibrillator lead liquor tester [employer], model [id number]-65 Durata, serial number [id number]. Dyslipidemia, goal LDL below 70 03/18/2013 Acquired hypothyroidism 03/18/2013 Cardiomyopathy, ischemic 03/15/2013 documented as of this encounter (statuses as of 04/26/2023) Resolved Problems Problem Noted Date Diagnosed Date [...] as of this encounter (statuses as of 04/26/2023) Immunizations Name Administration Dates Next Due Pneumococcal [...] on file documented as of this encounter Progress Notes * Rebecca Roque Community Health Public Safety Officer - 04/26/2023 12:25 PM EST Telemedicine visit: No Community Health Public Safety Officer ([facility]) documentation: [facility] home visit to deliver shower chair from Lauren Dao. documented in this encounter Plan of Treatment Upcoming Encounters Date Type Department Care Team (Late st Contact Info) Description 04/30/2023 12:20 PM EST Office Visit Family Practice [address] [place] [address] Paul Brandt PA-C [address] [place] [address] [address] 05/22/2023 8:15 AM EST Office [facility] [address] [place] [address] Ronny Mackey Jr., MD [address] [place] [address] [place] [address] 07/02/2023 2:30 PM EST [facility] [place] [address] Candace Adhikari CRNP [address] [place] [address] 10/04/2023 7:20 AM EDT Office Visit Family Practice [address], [place] [address] [place] [address] Roslyn Gale DO [address] [place] [address] Health Maintenance Due Date Last Done Comments COVID-19 Vaccine (#1) 06/07/1941 Zoster Vaccines (2 of 3) 07/12/2014 05/17/2014 Depression Screening 11/22/2020 11/23/2019 Albumin/Creatinine Ratio 10/06/2023 023, 04/15/2017, 11/10/2014 GFR 10/07/2023 04/08/2023, 10/13, 10/24/2022, Additional history exists CKD HGB USE SMARTSET 59931 04/08/202404/08, 04/08/2023, 10/24/2022, Additional history exists CKD PHOS USE SMARTSET 64753 04/08/202403/14, 01/23/2022, 01/13/2021, Additional history exists TSH [...] the patient have Health Care Power of Hospice Team Lead? No Code Status History Code Status Date Activated Date Inactivated Comments Full Code 07/27/2014 1:43 PM 07/28/2014 2:00 PM This order reflects the patients wishes and were consensually agreed upon. Question Answer Comments Discussion of Advance Directives occurred with: Not Discussed Does the patient have a Living Will? No Does the patient have Health Care Power of Hospice Team Lead? No Full Code 07/21/2014 11:34 AM 07/21/2014 10:34 PM Thi s order reflects the patients wishes and were consensually agreed upon. Question Answer Comments Discussion of Advance Directives occurred with: Not Discussed Does the patient have a Living Will? No Does the patient have Health Care Power of Hospice Team Lead? No Full Code 03/14/2013 10:18 PM 03/25/2013 2:39 PM Thi s order reflects the patients wishes and were consensually agreed upon. Question Answer Comments Discussion of Advance Directives occurred with: Not Discussed Does the patient have a Living Will? No Does the patient have Health Care Power of Hospice Team Lead? No Healthcare Agents on File Name Relationship Healthcare Agent Relationship Communication Jose HENDRIX Adult Child Health Object Oriented Developer resentative (appointed verbally by patient or by statute hierarchy) Care Teams Seo Coordinator Relationship Specialty Start Date End Date Roslyn Gale DO [address] [facility] [place] [address] PCP - General Family Medicine 11/10/18 documented as of this encounter
--- OUTSIDE RECORDS SUMMARY | 2023-05-18 10:47 | External Medical Summary | Summary of Care ---
Author Name Unknown Organization [facility] Address [address] [facility] [address] Phone [phone] Care Team Providers Care Marble Supervisor Name Role Phone ShahlaEzekielRoslynashleigh Mora DO Primary Care Provider +1- [phone] Reason for Visit * Reason Comments eRx-Medication Refill Encounter Details Date Type Department Care Team (Late st Contact Info) Description 05/11/2023 Refill Cardiology, [facility] [address] [place] [address] Vee Beckwith PA-C [address] [place] [address] Allergies Active Allergy Reactions Criticality Noted Date Comments Pantoprazole Hives 01/13/2016 Sucralfate Hives 01/13/2016 documented as of this encounter (statuses as of 05/16/2023) Medications Medication Sig Dispensed Refills Start Date End Date Status ASPIRIN 81 MG PO CHEWIndications:INTE RFACED RESULT Take 1 tablet by mouth daily 32 Tab 11 03/24/2013 Active Nitroglycerin 0.4 MG Sublingual Tablet Sublingual (Nitrostat)Indicatio ns:Cardiac arrest (HCC),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),Crescendo angina [...] Oral Tablet (pLAVix)Indications: Cardiomyopathy, ischemic,Atheroscler osis of [place] coronary artery of [place] heart with stable angina pectoris (HCC) take 1 tablet by mouth once daily 90 Tablet 3 02/23/2023 Active Metoprolol Succinate ER 50 MG Oral Tablet Extended Release 24 Hour (toPROL XL)Indications:Ather osclerosis of [place] coronary artery of [place] heart with stable angina pectoris (HCC),Cardiomyopathy , [...] as of this encounter (statuses as of 05/16/2023) Active Problems Problem Noted Date Diagnosed Date Osteoarthritis, knee 03/28/2023 Protein-calorie malnutrition 10/19/2022 VT (ventricular tachycardia) 07/13/2021 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 stage 3 chronic kidney disease 07/13/2021 VF (ventricular fibrillation) 05/11/2021 S/P drug eluting coronary stent placement 2020 Heart failure, systolic, due to CAD 07/13/2020 Atherosclerosis of [place] co ronary artery of [place] heart with stable angina pectoris 11/10/2018 History of cardiac arrest 11/10/2018 History of prostate cancer 04/22/2017 S/P CABG (coronary artery bypass graft) 04/22/20 17 Statin intolerance 10/23/2016 Gastroesophageal reflux disease with esophagitis 2015 HTN, goal below 130/80 2015 BPH without obstruction/lower urinary tract symp toms 08/20/2014 ICD (implantable cardioverter-defibrillator) in place 03/20/2013 Overview: -Cardioverter-defibrillator insulation technician [employer], model [id number] Fortify, serial number [id number]. -Atrial lead insulation technician [employer], model 1688TC-52 Tendril SDX, serial number [id number]. -Right ventricular defibrillator lead insulation technician [employer], model 7122Q-65 Durata, serial number [id number]. Dyslipidemia, goal LDL below 70 03/18/2013 Acquired hypothyroidism 03/18/2013 Cardiomyopathy, ischemic 03/15/2013 documented as of this encounter (statuses as of 05/16/2023) Resolved Problems Problem Noted Date Diagnosed Date [...] as of this encounter (statuses as of 05/16/2023) Immunizations Name Administration Dates Next Due Pneumococcal [...] on file documented as of this encounter Miscellaneous Notes * Telephone Encounter - Vee Beckwith PA-C - 05/16/2023 9:48 AM EST Previously discontinued * Telephone Encounter - Alexis Danielle DO - 05/16/2023 9:42 AM EST Pending Prescriptions: Disp Refills Amiodarone HCl 200 MG Oral Tablet [Pharmac*90 Tab*3 Sig: take 1 tablet by mouth once daily * Telephone Encounter - Susan Gonzalez LPN - 05/15/2023 9:16 AM ESTPending Prescriptions: Disp Refills Amiodarone HCl 200 MG Oral Tablet [Pharmac*90 Tab*3 Sig: take 1 tablet by mouth once daily * Telephone Encounter - Susan Gonzalez LPN - 05/15/2023 9:16 AM EST Pending Prescriptions: Disp Refills Amiodarone HCl 200 MG Oral Tablet (Cordar*90 Tab*3 Sig: take 1 tablet by mouth once daily documented in this encounter Plan of Treatment Upcoming Encounters Date Type Department Care Team (Late st Contact Info) Description 05/22/2023 8:15 AM EST Office Visit Urology Sherman Coleman [address] [place] [address] [place] [address] Ronny Mackey Jr., MD [address] [place] [address] [place] [address] 07/02/2023 2:30 PM EST Office Visit Cardiology, [facility] [address] [place] [address] Candace Adhikari CRNP [address] [place] [address] 10/04/2023 7:20 AM EDT [facility] [address] [place] [address] Roslyn Gale DO [address] [facility] [place] [address] Health Maintenance Due Date Last Done Comments COVID-19 Vaccine (#1) 06/07/1941 Zoster Vaccines (2 of 3) 07/12/2014 05/17/2014 Depression Screening 11/22/2020 11/23/2019 Albumin/Creatinine Ratio 10/06/2023 023, 04/15/2017, 11/10/2014 GFR 10/07/2023 04/08/2023, 10/13, 10/24/2022, Additional history exists CKD HGB USE SMARTSET 75678 04/08/202404/08, 04/08/2023, 10/24/2022, Additional history exists CKD PHOS USE SMARTSET 99223 04/08/202403/14, 01/23/2022, 01/13/2021, Additional history exists TSH [...] patient have Health Care Power of Director Agency & Strategic Partnerships? No Code Status History Code Status Date Activated Date Inactivated Comments Full Code 07/27/2014 1:43 PM 07/28/2014 2:00 PM This order reflects the patients wishes and were consensually agreed upon. Question Answer Comments Discussion of Advance Directives occurred with: Not Discussed Does the patient have a Living Will? No Does the patient have Health Care Power of Director Agency & Strategic Partnerships? No Full Code 07/21/2014 11:34 AM 07/21/2014 10:34 PM Thi s order reflects the patients wishes and were consensually agreed upon. Question Answer Comments Discussion of Advance Directives occurred with: Not Discussed Does the patient have a Living Will? No Does the patient have Health Care Power of Director Agency & Strategic Partnerships? No Full Code 03/14/2013 10:18 PM 03/25/2013 2:39 PM Thi s order reflects the patients wishes and were consensually agreed upon. Question Answer Comments Discussion of Advance Directives occurred with: Not Discussed Does the patient have a Living Will? No Does the patient have Health Care Power of Director Agency & Strategic Partnerships? No Healthcare Agents on File Name Relationship Healthcare Agent Relationship Communication Jose HENDRIX Adult Child Health Lithographers Printer resentative (appointed verbally by patient or by statute hierarchy) Care Teams Marble Supervisor Relationship Specialty Start Date End Date Rosyln Gale DO [address] [facility] [place] [address] PCP - General Family Medicine 11/10/18 documented as of this encounter
--- OUTSIDE RECORDS SUMMARY | 2023-05-18 10:48 | External Medical Summary | Summary of Care ---
Author Name Unknown Organization [facility] Address [address] [facility] [address] Phone [phone] Care Team Providers Care Speech Therapy Assistant Name Role Phone Roslyn Gale DO Primary Care Provider +1- [phone] Reason for Visit * Reason Onset Date Comments Advice 04/12/2023 Encounter Details Date Type Department Care Team (Late st Contact Info) Description 04/12/2023 Telephone Cardiology Sherman Rowley [address] [place] [address] Nancy Ramon DO [address] [place] [id number] Advice Allergies Active Allergy Reactions Criticality Noted Date Comments Pantoprazole Hives 01/13/2016 Sucralfate Hives 01/13/2016 documented as of this encounter (statuses as of 04/19/2023) Medications Medication Sig Dispensed Refills Start Date End Date Status ASPIRIN 81 MG PO CHEWIndications:INTE RFACED RESULT Take 1 tablet by mouth daily 32 Tab 11 03/24/2013 Active Nitroglycerin 0.4 MG Sublingual Tablet Sublingual (Nitrostat)Indicatio ns:Cardiac arrest (HCC),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),Crescendo angina [...] Oral Tablet (pLAVix)Indications: Cardiomyopathy, ischemic,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) take 1 tablet by mouth once daily 90 Tablet 3 02/23/2023 Active Metoprolol Succinate ER 50 MG Oral Tablet Extended Release 24 Hour (toPROL XL)Indications:Ather osclerosis of [place] coronary artery of [place] heart with stable angina pectoris (HCC),Cardiomyopathy , [...] as of this encounter (statuses as of 04/19/2023) Active Problems Problem Noted Date Diagnosed Date Osteoarthritis, knee 03/28/2023 Protein-calorie malnutrition 10/19/2022 VT (ventricular tachycardia) 07/13/2021 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 stage 3 chronic kidney disease 07/13/2021 VF (ventricular fibrillation) 05/11/2021 S/P drug eluting coronary stent placement 2020 Heart failure, systolic, due to CAD 07/13/2020 Atherosclerosis of [place] co ronary artery of [place] heart with stable angina pectoris 11/10/2018 History of cardiac arrest 11/10/2018 History of prostate cancer 04/22/2017 S/P CABG (coronary artery bypass graft) 04/22/20 17 Statin intolerance 10/23/2016 Gastroesophageal reflux disease with esophagitis 2015 HTN, goal below 130/80 2015 BPH without obstruction/lower urinary tract symp toms 08/20/2014 ICD (implantable cardioverter-defibrillator) in place 03/20/2013 Overview: -Cardioverter-defibrillator anode crew supervisor [employer], model [id number] Fortify, serial number [id number]. -Atrial lead anode crew supervisor [employer], model 1688TC-52 Tendril SDX, serial number [id number]. -Right ventricular defibrillator lead anode crew supervisor [employer], model 7122Q-65 Durata, serial number [id number]. Dyslipidemia, goal LDL below 70 03/18/2013 Acquired hypothyroidism 03/18/2013 Cardiomyopathy, ischemic 03/15/2013 documented as of this encounter (statuses as of 04/19/2023) Resolved Problems Problem Noted Date Diagnosed Date [...] as of this encounter (statuses as of 04/19/2023) Immunizations Name Administration Dates Next Due Pneumococcal Conjugate Vacc, 13 Valent (Prevnar) 2015 Pneumococcal Conjugate Vacci ne, 7 Valent 04/01/2014 Pneumococcal Polysaccharide PPV23 (Pneumovax) 03/21/2013 SEASONAL INFLUENZA, PF, 6 M & Above, IM , (FLULAVAL or FLUZONE) 03/09/2020,02/17/2019,04/22/2018 Seasonal Influenza Virus Vac cine, Unspecified Formulation 01/30/2022,01/13/2021,03/09/2020,02/17,04/22/2018,04/22/2017,03/21/2013 Seasonal Influenza, Quadriva lent Hd (Fluzone Hd) [...] the money to buy more. Never true 10/02/19 23 Within the past 12 months, t he food you bought just didn't last and you didn't have money to get more. Never true 10/01/2022 Sex and Gender Information Value Date Recorded Sex Assigned at Not on file Gender Identity Not on file Sexual Orientation Not on file Job Start Date Occupation Industry Not on file Not on file Not on file documented as of this encounter Miscellaneous Notes * Telephone Encounter - Alexis Danielle DO - 04/19/2023 7:34 AM EST Agree patient should just keep appointment On 04/24. * Telephone Encounter - Jeremiah Belcher LPN - 04/17/2023 10:25 AM EST Patient's son called back an indicated he sees no concerns for edema. Patient is losing weight and weak but no other concerns. Patient to keep appointment with Dr. Danielle on 04/24/23. * Telephone Encounter - José Castillo RN - 04/16/2023 2:33 PM EST Called and left message to return call to assess for fluid retention due to abnormal pace maker reading * Telephone Encounter - Jessica Billy RN - 04/12/2023 4:26 PM EST Remote transmission received and reviewed. Providers see scanned reports in scans tab. Jessica Billy RN Thoracic Impedance Out of Range 1 Fluid index reveals a decreased thoracic impedance indicating fluid retention. Findings report to the office staff to contact patient and assess for symptoms. documented in this encounter Plan of Treatment Upcoming Encounters Date Type Department Care Team (Late st Contact Info) Description 04/22/2023 8:00 AM EST Home Visit [facility] [address] [place] [address] Rebecca Roque [facility] Bench [facility] [address] [place] [address] 04/23/2023 1:00 PM EST Office Visit Palliative Medicine, [facility] [address] [facility] 5th [place] [address] Aleta Blake CRNP [address] [place] [address] 04/24/2023 10:30 AM EST [facility] Visit [facility], [facility] [place] [address] Alexis Danielle DO [address] [place] [address] 04/24/2023 10:30 AM EST Cardiac Studies Cardiology, [facility] [address] [place] [address] [facility] [address] [place] [address] 04/30/2023 12:20 PM EST Office [facility] [facility] [place] [address] [place] [address] Paul Brandt PA-C [address] [place] [address] 05/22/2023 8:15 AM EST Office Visit Urology Sherman Coleman [address] [place] [address] [place] [address] Ronny Mackey Jr., MD [address] [place] [address] [place] [address] 10/04/2023 7:20 AM EDT [facility] [address] [place] [address] Roslyn Gale DO [address] [place] [address] Health Maintenance Due Date Last Done Comments COVID-19 Vaccine (#1) 06/07/1941 Zoster Vaccines (2 of 3) 07/12/2014 05/17/2014 Depression Screening 11/22/2020 11/23/2019 Albumin/Creatinine Ratio 10/06/2023 023, 04/15/2017, 11/10/2014 GFR 10/07/2023 04/08/2023, 10/13, 10/24/2022, Additional history exists CKD HGB USE SMARTSET 37742 04/08/202404/08, 04/08/2023, 10/24/2022, Additional history exists CKD PHOS USE SMARTSET 28913 04/08/202403/14, 01/23/2022, 01/13/2021, Additional history exists TSH [...] the patient have Health Care Power of Research Tech? No Code Status History Code Status Date Activated Date Inactivated Comments Full Code 07/27/2014 1:43 PM 07/28/2014 2:00 PM This order reflects the patients wishes and were consensually agreed upon. Question Answer Comments Discussion of Advance Directives occurred with: Not Discussed Does the patient have a Living Will? No Does the patient have Health Care Power of Research Tech? No Full Code 07/21/2014 11:34 AM 07/21/2014 10:34 PM Thi s order reflects the patients wishes and were consensually agreed upon. Question Answer Comments Discussion of Advance Directives occurred with: Not Discussed Does the patient have a Living Will? No Does the patient have Health Care Power of Research Tech? No Full Code 03/14/2013 10:18 PM 03/25/2013 2:39 PM Thi s order reflects the patients wishes and were consensually agreed upon. Question Answer Comments Discussion of Advance Directives occurred with: Not Discussed Does the patient have a Living Will? No Does the patient have Health Care Power of Research Tech? No Healthcare Agents on File Name Relationship Healthcare Agent Relationship Communication Jose HENDRIX Adult Child Health Staying Machine Operator resentative (appointed verbally by patient or by statute hierarchy) Care Teams Speech Therapy Assistant Relationship Specialty Start Date End Date Roslyn Gale DO [address] [facility] [place] [address] PCP - General Family Medicine 11/10/18 documented as of this encounter
--- OUTSIDE RECORDS SUMMARY | 2023-05-18 10:48 | External Medical Summary | Summary of Care ---
Author Name Unknown Organization [facility] Address [address] [place] [address] Phone [phone] Care Team Providers Care Wire Mill Rover Name Role Phone Roslyn Gale DO Primary Care Provider +1- [phone] Reason for Visit * Reason Onset Date Comments Palliative Care Follow-up 04/16/2023 Encounter Details Date Type Department Care Team (Late st Contact Info) Description 04/16/2023 Telephone Palliative Medicine, [facility] [address] [facility] 5th [place] [address] Aleta Blake CRNP [address] [place] [address] Palliative Care Follow-up Allergies Active Allergy Reactions Criticality Noted Date Comments Pantoprazole Hives 01/13/2016 Sucralfate Hives 01/13/2016 documented as of this encounter (statuses as of 04/16/2023) Medications Medication Sig Dispensed Refills Start Date End Date Status ASPIRIN 81 MG PO CHEWIndications:INTE RFACED RESULT Take 1 tablet by mouth daily 32 Tab 11 03/24/2013 Active Nitroglycerin 0.4 MG Sublingual Tablet Sublingual (Nitrostat)Indicatio ns:Cardiac arrest (HCC),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),Crescendo angina [...] Oral Tablet (pLAVix)Indications: Cardiomyopathy, ischemic,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) take 1 tablet by mouth once daily 90 Tablet 3 02/23/2023 Active Metoprolol Succinate ER 50 MG Oral Tablet Extended Release 24 Hour (toPROL XL)Indications:Ather osclerosis of [place] coronary artery of [place] heart with stable angina pectoris (HCC),Cardiomyopathy , [...] as of this encounter (statuses as of 04/16/2023) Active Problems Problem Noted Date Diagnosed Date Osteoarthritis, knee 03/28/2023 Protein-calorie malnutrition 10/19/2022 VT (ventricular tachycardia) 07/13/2021 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 stage 3 chronic kidney disease 07/13/2021 VF (ventricular fibrillation) 05/11/2021 S/P drug eluting coronary stent placement 2020 Heart failure, systolic, due to CAD 07/13/2020 Atherosclerosis of [place] co ronary artery of [place] heart with stable angina pectoris 11/10/2018 History of cardiac arrest 11/10/2018 History of prostate cancer 04/22/2017 S/P CABG (coronary artery bypass graft) 04/22/20 17 Statin intolerance 10/23/2016 Gastroesophageal reflux disease with esophagitis 2015 HTN, goal below 130/80 2015 BPH without obstruction/lower urinary tract symp toms 08/20/2014 ICD (implantable cardioverter-defibrillator) in place 03/20/2013 Overview: -Cardioverter-defibrillator smearer [employer], model [id number] Fortify, serial number [id number]. -Atrial lead smearer [employer], model 1688TC-52 Tendril SDX, serial number [id number]. -Right ventricular defibrillator lead smearer [employer], model 7122Q-65 Durata, serial number [id number]. Dyslipidemia, goal LDL below 70 03/18/2013 Acquired hypothyroidism 03/18/2013 Cardiomyopathy, ischemic 03/15/2013 documented as of this encounter (statuses as of 04/16/2023) Resolved Problems Problem Noted Date Diagnosed Date [...] as of this encounter (statuses as of 04/16/2023) Immunizations Name Administration Dates Next Due Pneumococcal [...] encounter Miscellaneous Notes * Telephone Encounter - Lilly Sims OSA - 04/16/2023 2:21 PM EST Pt's daughter in law returning call; the appt date/time is fine, confirmed 04/23 at 1 PM. * Telephone Encounter - Juanita Drake LPN - 04/16/2023 8:54 AM EST Referral received from Case Management Call to patient Offered 04/23 at 1pm He asked if we could call son to confirm that will be okay as his son coordinates his appointments Call to polloJose No answer Left message requesting return call to [phone] documented in this encounter Plan of Treatment Upcoming Encounters Date Type Department Care Team (Late st Contact Info) Description 04/23/2023 1:00 PM EST Office Visit Palliative Medicine, [facility] [address] [facility] 5th [address] [place] [address] Aleta Blake CRNP [address] [facility] [place] [address] 04/24/2023 10:30 AM EST Office Visit [facility], [facility] [address] [facility] [place] [address] Alexis Danielle DO [address] [facility] [place] [address] 04/24/2023 10:30 AM EST Cardiac Studies Cardiology, [facility] [address] [facility] [place] [address] [place] [address] [place] [address] 04/30/2023 12:20 PM EST Office Visit [facility] [address] [place] [address] [place] [address] Paul Brandt PA-C [address] [place] [address] 05/22/2023 8:15 AM EST Office Visit Urology [facility] [place] [address] [place] [address] [place] [address] Ronny Mackey Jr., MD [address] [place] [address] [place] [address] 10/04/2023 7:20 AM EDT Office Visit [facility] [address] [place] [address] [place] [address] Shahla Roslyn Abby, [address] [place] [address] Health Maintenance Due Date Last Done Comments COVID-19 Vaccine (#1) 06/07/1941 Zoster Vaccines (2 of 3) 07/12/2014 05/17/2014 Depression Screening 11/22/2020 11/23/2019 Albumin/Creatinine Ratio 10/06/2023 023, 04/15/2017, 11/10/2014 GFR 10/07/2023 04/08/2023, 10/13, 10/24/2022, Additional history exists CKD HGB USE SMARTSET 69525 04/08/202404/08, 04/08/2023, 10/24/2022, Additional history exists CKD PHOS USE SMARTSET 32076 04/08/202403/14, 01/23/2022, 01/13/2021, Additional history exists TSH [...] the patient have Health Care Power of Media Clerk? No Code Status History Code Status Date Activated Date Inactivated Comments Full Code 07/27/2014 1:43 PM 07/28/2014 2:00 PM This order reflects the patients wishes and were consensually agreed upon. Question Answer Comments Discussion of Advance Directives occurred with: Not Discussed Does the patient have a Living Will? No Does the patient have Health Care Power of Media Clerk? No Full Code 07/21/2014 11:34 AM 07/21/2014 10:34 PM Thi s order reflects the patients wishes and were consensually agreed upon. Question Answer Comments Discussion of Advance Directives occurred with: Not Discussed Does the patient have a Living Will? No Does the patient have Health Care Power of Media Clerk? No Full Code 03/14/2013 10:18 PM 03/25/2013 2:39 PM Thi s order reflects the patients wishes and were consensually agreed upon. Question Answer Comments Discussion of Advance Directives occurred with: Not Discussed Does the patient have a Living Will? No Does the patient have Health Care Power of Media Clerk? No Healthcare Agents on File Name Relationship Healthcare Agent Relationship Communication Jose HENDRIX Adult Child Health Learning Coach resentative (appointed verbally by patient or by statute hierarchy) Care Teams Wire Mill Rover Relationship Specialty Start Date End Date Roslyn Gale DO [address] [facility] [place] [address] PCP - General Family Medicine 11/10/18 documented as of this encounter
--- OUTSIDE RECORDS SUMMARY | 2023-05-18 10:48 | External Medical Summary | Summary of Care ---
Author Name Unknown Organization [facility] Address [address] [place] [address] Phone [phone] Care Team Providers Care Resin Remover Name Role Phone Roslyn Gale DO Primary Care Provider +1- [phone] Reason for Visit * Reason Onset Date Comments Test Results 04/12/2023 Encounter Details Date Type Department Care Team (Late st Contact Info) Description 04/12/2023 Telephone Family Practice [address] [place] [address] [place] [address] Roslyn Gale DO [address] [facility] [place] [address] Test Results Allergies Active Allergy Reactions Criticality Noted Date Comments Pantoprazole Hives 01/13/2016 Sucralfate Hives 01/13/2016 documented as of this encounter (statuses as of 04/12/2023) Medications Medication Sig Dispensed Refills Start Date End Date Status ASPIRIN 81 MG PO CHEWIndications:INTE RFACED RESULT Take 1 tablet by mouth daily 32 Tab 11 03/24/2013 Active Nitroglycerin 0.4 MG Sublingual Tablet Sublingual (Nitrostat)Indicatio ns:Cardiac arrest (HCC),Atherosclerosi s of blackfeet coronary artery of blackfeet heart with stable angina pectoris (HCC),Crescendo angina [...] Oral Tablet (pLAVix)Indications: Cardiomyopathy, ischemic,Atheroscler osis of blackfeet coronary artery of blackfeet heart with stable angina pectoris (HCC) take 1 tablet by mouth once daily 90 Tablet 3 02/23/2023 Active Metoprolol Succinate ER 50 MG Oral Tablet Extended Release 24 Hour (toPROL XL)Indications:Ather osclerosis of blackfeet coronary artery of blackfeet heart with stable angina pectoris (HCC),Cardiomyopathy , [...] as of this encounter (statuses as of 04/12/2023) Active Problems Problem Noted Date Diagnosed Date Osteoarthritis, knee 03/28/2023 Protein-calorie malnutrition 10/19/2022 VT (ventricular tachycardia) 07/13/2021 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 stage 3 chronic kidney disease 07/13/2021 VF (ventricular fibrillation) 05/11/2021 S/P drug eluting coronary stent placement 2020 Heart failure, systolic, due to CAD 07/13/2020 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, model [id number] Fortify, serial number [id number]. -Atrial lead director of personnel [employer], model 1688TC-52 Tendril SDX, serial number [id number]. -Right ventricular defibrillator lead director of personnel [employer], model 7122Q-65 Durata, serial number [id number]. Dyslipidemia, goal LDL below 70 03/18/2013 Acquired hypothyroidism 03/18/2013 Cardiomyopathy, ischemic 03/15/2013 documented as of this encounter (statuses as of 04/12/2023) Resolved Problems Problem Noted Date Diagnosed Date [...] as of this encounter (statuses as of 04/12/2023) Immunizations Name Administration Dates Next Due Pneumococcal [...] encounter Miscellaneous Notes * Telephone Encounter - Leticia Murguia LPN - 04/12/2023 2:41 PM EST Pt updated, verbalized understanding. * Telephone Encounter - Roslyn Gale DO - 04/12/2023 2:02 PM EST Please let patient and family know that his liver ultrasound was normal documented in this encounter Plan of Treatment Upcoming Encounters Date Type Department Care Team (Late st Contact Info) Description 04/15/2023 9:00 AM EST Office Visit Family [facility] [address] [place] [address] Paul Brandt PA-C [address] [place] [address] 04/24/2023 10:30 AM EST Office Visit Cardiology, [facility] [address] [place] [address] Alexis Danielle, DO [address] [facility] [place] [address] 04/26/2023 9:00 AM EST Cardiac Studies Cardiology, [facility] [address] [place] [address] [facility] [address] [place] [address] 05/22/2023 8:15 AM EST Office Visit Urology [facility] Coleman [address] [place] [address] Ronny Mackey Jr., MD [address] [place] [address] 10/04/2023 7:20 AM EDT Office Visit Family [facility] [place] [address] [place] [address] Roslyn Gale DO [address] [place] [address] Health Maintenance Due Date Last Done Comments COVID-19 Vaccine (#1) 06/07/1941 Zoster Vaccines (2 of 3) 07/12/2014 05/17/2014 Depression Screening 11/22/2020 11/23/2019 Albumin/Creatinine Ratio 10/06/2023 023, 04/15/2017, 11/10/2014 GFR 10/07/2023 04/08/2023, 10/13, 10/24/2022, Additional history exists CKD HGB USE SMARTSET 67881 04/08/202404/08, 04/08/2023, 10/24/2022, Additional history exists CKD PHOS USE SMARTSET 42970 04/08/202403/14, 01/23/2022, 01/13/2021, Additional history exists TSH [...] the patient have Health Care Power of Phlebotomy Manager? No Code Status History Code Status Date Activated Date Inactivated Comments Full Code 07/27/2014 1:43 PM 07/28/2014 2:00 PM This order reflects the patients wishes and were consensually agreed upon. Question Answer Comments Discussion of Advance Directives occurred with: Not Discussed Does the patient have a Living Will? No Does the patient have Health Care Power of Phlebotomy Manager? No Full Code 07/21/2014 11:34 AM 07/21/2014 10:34 PM Thi s order reflects the patients wishes and were consensually agreed upon. Question Answer Comments Discussion of Advance Directives occurred with: Not Discussed Does the patient have a Living Will? No Does the patient have Health Care Power of Phlebotomy Manager? No Full Code 03/14/2013 10:18 PM 03/25/2013 2:39 PM Thi s order reflects the patients wishes and were consensually agreed upon. Question Answer Comments Discussion of Advance Directives occurred with: Not Discussed Does the patient have a Living Will? No Does the patient have Health Care Power of Phlebotomy Manager? No Healthcare Agents on File Name Relationship Healthcare Agent Relationship Communication Jose HENDRIX Adult Child Health Manager Clinic resentative (appointed verbally by patient or by statute hierarchy) Care Teams Resin Remover Relationship Specialty Start Date End Date Roslyn Gale DO [address] [facility] [place] [address] PCP - General Family Medicine 11/10/18 documented as of this encounter
--- OUTSIDE RECORDS SUMMARY | 2023-05-18 10:48 | External Medical Summary | Summary of Care ---
Author Name Unknown Organization [facility] Address [address] [place] [address] Phone [phone] Care Team Providers Care Land Department Head Name Role Phone Roslyn Gale DO Primary Care Provider [phone]- [phone] Reason for Referral * Evaluate & Treat - Unlimited Visits (Within 3 days (urgent)) - Authorized Specialty Diagnoses / Procedures Referred By Contac sissy Referred To Contact Dietitian / Nutrition Services Diagnoses Heart failure, systolic, due to CAD Cardiomyopathy, ischemic Protein-calorie malnutrition (HCC) Roslyn Gale DO [address] [facility] [place] [address] Referral ID Status Reason Start Date Expiration Date Visits Requested Visits Authorized [id number] Authorized Specialty Services Required 3 999 999 Question Answer Referral Priority Within 3 days (urgent) Where should this appointment be scheduled? [facility] What condition is the patient being seen for? Weight Reduction/Excessive Weight Gain Comments Patient has had ~50 lb weight loss in last 6 months. Unable to determine cause, need assistance with nutrition recommendations/ consult. ?FTT Thank you! * Evaluate & Treat - Unlimited Visits (Within 3 days (urgent)) - Authorized Specialty Diagnoses / Procedures Referred By Contac t Referred To Contact Hospice and Palliative Medicine / Palliative Medicine Diagnoses Heart failure, systolic, due to CAD Cardiomyopathy, ischemic Protein-calorie malnutrition (HCC) Roslyn Gale DO [address] [place] [address] Referral ID Status Reason Start Date Expiration Date Visits Requested Visits Authorized [id number] Authorized Specialty Services Required 3 999 999 Question Answer Referral Priority Within 3 days (urgent) Where should this appointment be scheduled? [facility] Reason for Referral: Heart Failure Palliative Medicine To Address: Goals of Care Is this referral for [facility] Palliative service? ([facility] Insurance Only) No Comments CHF patient, discussion on goals of care intermediate project manager Reason for Visit * Reason Onset Date Comments case management 04/11/2023 Referral 04/11/202304/12 LMOM/Pallia tive/nutrition Encounter Details Date Type Department Care Team (Latest Contact Info) Description 04/11/2023 Materials Handling Coordinator Telephone Care Coordination and Integration [address] [place] [address] Martha Peters RN [address] [place] [address] case management; Referral (04/12 LMOM/Palli... Allergies Active Allergy Reactions Criticality Noted Date Comments Pantoprazole Hives 01/13/2016 Sucralfate Hives 01/13/2016 documented as of this encounter (statuses as of 04/12/2023) Medications Medication Sig Dispensed Refills Start Date End Date Status ASPIRIN 81 MG PO CHEWIndications:INTE RFACED RESULT Take 1 tablet by mouth daily 32 Tab 11 03/24/2013 Active Nitroglycerin 0.4 MG Sublingual Tablet Sublingual (Nitrostat)Indicatio ns:Cardiac arrest (HCC),Atherosclerosi s of [place] coronary artery of [place] heart with stable angina pectoris (HCC),Crescendo angina [...] Oral Tablet (pLAVix)Indications: Cardiomyopathy, ischemic,Atheroscler osis of [place] coronary artery of [place] heart with stable angina pectoris (HCC) take 1 tablet by mouth once daily 90 Tablet 3 02/23/2023 Active Metoprolol Succinate ER 50 MG Oral Tablet Extended Release 24 Hour (toPROL XL)Indications:Ather osclerosis of [place] coronary artery of [place] heart with stable angina pectoris (HCC),Cardiomyopathy , [...] systolic, due to CAD 07/13/2020 Atherosclerosis of still[place] co ronary artery of stillaguam[place] heart with stable angina pectoris 11/10/2018 History of cardiac arrest 11/10/2018 History of prostate cancer 04/22/2017 S/P CABG (coronary artery bypass graft) 04/22/20 17 Statin intolerance 10/23/2016 Gastroesophageal reflux disease with esophagitis 2015 HTN, goal below 130/80 2015 BPH without obstruction/lower urinary tract symp toms 08/20/2014 ICD (implantable cardioverter-defibrillator) in place 03/20/2013 Overview: -Cardioverter-defibrillator collections manager [employer], model [id number] Fortify, serial number [id number]. -Atrial lead collections manager [employer], model 1688TC-52 Tendril SDX, serial number [id number]. -Right ventricular defibrillator lead collections manager [employer], model 7122Q-65 Durata, serial number [id number]. Dyslipidemia, goal LDL below 70 03/18/2013 Acquired [...] encounter Miscellaneous Notes * Telephone Encounter - Sarah Mendoza OSA - 04/12/2023 11:01 AM EST LMOM to schedule nutrition appt. Pt will be contacted directly by Palliative care * Telephone Encounter - Roslyn Gale DO - 04/11/2023 4:30 PM EST Referral signed * Telephone Encounter - Martha Peters RN - 04/11/2023 4:05 PM EST Spoke with Dr Gale regarding patient via telephone. See CM encounter from today. Dr Gale- pending referrals for palliative and nutrition. Is there an appetite stimulant? Not sureif that would work-- US of liver is tomorrow.. Called [employer], senior sales associate will be out to look at in home care. Thanks! Martha Peters, RN documented in this encounter Plan of Treatment Upcoming Encounters Date Type Department Care Team (Late st Contact Info) Description 04/12/2023 12:30 PM EST Imaging Radiology [facility] [address] [facility] [place] [address] 04/15/2023 9:00 AM EST Office Visit [facility] [address], [place] [address] [place] [address] Paul Brandt PA-C [address] [place] [address] 04/24/2023 10:30 AM EST Office Visit Cardiology, [facility] [address] [place] [address] Alexis Danielle, [address] [facility] [place] [address] 04/26/2023 9:00 AM EST Cardiac Studies Cardiology, [facility] [address] [place] [address] [facility] [address] [facility] [place] [address] 05/22/2023 8:15 AM EST Office Visit Urology Sherman Coleman [address] [place] [address] Ronny Mackey Jr., MD [address] [place] [address] [place] [address] 10/04/2023 7:20 AM EDT Office Visit [facility] [address], [place] [address] [place] [address] Roslyn Gale DO [address] [place] [address] Scheduled Referrals Name Type Priority Associated Diagnoses Orde r Schedule PALLIATIVE CARE REFERRAL OP Referral Within 3 days (urgent) Heart failure, systolic, due to CAD Cardiomyopathy, ischemic Protein-calorie malnutrition (HCC) Ordered: 04/11/2023 NUTRITION-CLINICAL DIETITIAN REFERRAL OP Referral Within 3 days (urgent) Heart failure, systolic, due to CAD Cardiomyopathy, ischemic Protein-calorie malnutrition (HCC) Ordered: 04/11/2023 Health Maintenance Due Date Last Done Comments COVID-19 Vaccine (#1) 06/07/1941 Zoster Vaccines (2 of 3) 07/12/2014 05/17/2014 Depression Screening 11/22/2020 11/23/2019 Albumin/Creatinine Ratio 10/06/2023 023, 04/15/2017, 11/10/2014 GFR 10/07/2023 04/08/2023, 10/13, 10/24/2022, Additional history exists CKD HGB USE SMARTSET 94280 04/08/202404/08, 04/08/2023, 10/24/2022, Additional history exists CKD PHOS USE SMARTSET 00772 04/08/202403/14, 01/23/2022, 01/13/2021, Additional history exists TSH [...] Not on filedocumented as of this encounter Visit Diagnoses Diagnosis Heart failure, systolic, due to CAD- Primary Unspecified systolic heart failure Cardiomyopathy, ischemic Other specified forms of chronic ischemic heart disease Protein-calorie malnutrition (HCC) Unspecified protein-calorie malnutrition documented in this encounter Advance Directives Latest Code Status on File Code Status Date Activated Date Inactivated Comments Full Code 02/29/2020 12:43 PM 02/29/2020 7:27 PM Th is order reflects the patients wishes and were consensually agreed upon. Question Answer Comments Discussion of Advance Directives occurred with: Not Discussed Does the patient have a Living Will? No Does the patient have Health Care Power of Rotary Machine Operator? No Code Status History Code Status Date Activated Date Inactivated Comments Full Code 07/27/2014 1:43 PM 07/28/2014 2:00 PM This order reflects the patients wishes and were consensually agreed upon. Question Answer Comments Discussion of Advance Directives occurred with: Not Discussed Does the patient have a Living Will? No Does the patient have Health Care Power of Rotary Machine Operator? No Full Code 07/21/2014 11:34 AM 07/21/2014 10:34 PM Thi s order reflects the patients wishes and were consensually agreed upon. Question Answer Comments Discussion of Advance Directives occurred with: Not Discussed Does the patient have a Living Will? No Does the patient have Health Care Power of Rotary Machine Operator? No Full Code 03/14/2013 10:18 PM 03/25/2013 2:39 PM Thi s order reflects the patients wishes and were consensually agreed upon. Question Answer Comments Discussion of Advance Directives occurred with: Not Discussed Does the patient have a Living Will? No Does the patient have Health Care Power of Rotary Machine Operator? No Healthcare Agents on File Name Relationship Healthcare Agent Relationship Communication Jose HENDRIX Adult Child Health Cooperative Manager resentative (appointed verbally by patient or by statute hierarchy) Care Teams Land Department Head Relationship Specialty Start Date End Date Roslyn Gale DO [address] [facility] [place] [address] PCP - General Family Medicine 11/10/18 documented as of this encounter
--- OUTSIDE RECORDS SUMMARY | 2023-05-18 10:48 | External Medical Summary | Summary of Care ---
Author Name Unknown Organization [facility] Address [address] [place] [address] Phone [phone] Care Team Providers Care High Speed Printer Operator Name Role Phone Roslyn Gale DO Primary Care Provider [phone]- [phone] Reason for Visit * Reason Comments Pacemaker Clinic Encounter Details Date Type Department Care Team (Late st Contact Info) Description 04/24/2023 10:30 AM EST Cardiac Studies Cardiology, [facility] [address] [place] [address] [facility] [address] [place] [address] Arrived Allergies Active Allergy Reactions Criticality Noted Date Comments Pantoprazole Hives 01/13/2016 Sucralfate Hives 01/13/2016 documented as of this encounter (statuses as of 04/24/2023) Medications Medication Sig Dispensed Refills Start Date End Date Status ASPIRIN 81 MG PO CHEWIndications:INTE RFACED RESULT Take 1 tablet by mouth daily 32 Tab 11 03/24/2013 Active Nitroglycerin 0.4 MG Sublingual Tablet Sublingual (Nitrostat)Indicatio ns:Cardiac arrest (HCC),Atherosclerosi s of [place] coronary artery of [place] heart with stable angina pectoris (HCC),Crescendo angina [...] Oral Tablet (pLAVix)Indications: Cardiomyopathy, ischemic,Atheroscler osis of [place] coronary artery of ak [place] heart with stable angina pectoris (HCC) take 1 tablet by mouth once daily 90 Tablet 3 02/23/2023 Active Metoprolol Succinate ER 50 MG Oral Tablet Extended Release 24 Hour (toPROL XL)Indications:Ather osclerosis of [place] chin coronary artery of ak chin heart with stable angina pectoris (HCC),Cardiomyopathy , [...] as of this encounter (statuses as of 04/24/2023) Active Problems Problem Noted Date Diagnosed Date Osteoarthritis, knee 03/28/2023 Protein-calorie malnutrition 10/19/2022 VT (ventricular tachycardia) 07/13/2021 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 stage 3 chronic kidney disease 07/13/2021 VF (ventricular fibrillation) 05/11/2021 S/P drug eluting coronary stent placement 2020 Heart failure, systolic, due to CAD 07/13/2020 Atherosclerosis of ak chin co ronary artery of ak chin heart with stable angina pectoris 11/10/2018 History of cardiac arrest 11/10/2018 History of prostate cancer 04/22/2017 S/P CABG (coronary artery bypass graft) 04/22/20 17 Statin intolerance 10/23/2016 Gastroesophageal reflux disease with esophagitis 2015 HTN, goal below 130/80 2015 BPH without obstruction/lower urinary tract symp toms 08/20/2014 ICD (implantable cardioverter-defibrillator) in place 03/20/2013 Overview: -Cardioverter-defibrillator webfed offset press operator [employer], model [id number] Fortify, serial number [id number]. -Atrial lead webfed offset press operator [employer], model 1688TC-52 Tendril SDX, serial number [id number]. -Right ventricular defibrillator lead webfed offset press operator [employer], model 7122Q-65 Durata, serial number [id number]. Dyslipidemia, goal LDL below 70 03/18/2013 Acquired hypothyroidism 03/18/2013 Cardiomyopathy, ischemic 03/15/2013 documented as of this encounter (statuses as of 04/24/2023) Resolved Problems Problem Noted Date Diagnosed Date [...] as of this encounter (statuses as of 04/24/2023) Immunizations Name Administration Dates Next Due Pneumococcal [...] on file documented as of this encounter Nursing Notes * Aleta Hoffman RN - 04/24/2023 11:20 AM EST ICD reprogramming B>AX performed as per [employer] advisory. documented in this encounter Plan of Treatment Upcoming Encounters Date Type Department Care Team (Late st Contact Info) Description 04/30/2023 12:20 PM EST Office Visit Family Practice [address] [place] [address] Paul Brandt PA-C [address] [place] [address] 05/22/2023 8:15 AM EST Office Visit Urology [facility] Coleman [address] [place] [address] [place] [address] Ronny Mackey Jr., MD [address] [place] [address] [place] [address] 07/02/2023 2:30 PM EST Office Visit Cardiology, [facility] [address] [facility] [place] [address] Candace Adhikari CRNP [address] [place] [address] 10/04/2023 7:20 AM EDT Office Visit Family Practice [address], [place] [address] [place] [id number] Roslyn Gale DO [address] [place] [address] Health Maintenance Due Date Last Done Comments COVID-19 Vaccine (#1) 06/07/1941 Zoster Vaccines (2 of 3) 07/12/2014 05/17/2014 Depression Screening 11/22/2020 11/23/2019 Albumin/Creatinine Ratio 10/06/2023 023, 04/15/2017, 11/10/2014 GFR 10/07/2023 04/08/2023, 10/13, 10/24/2022, Additional history exists CKD HGB USE SMARTSET 61761 04/08/202404/08, 04/08/2023, 10/24/2022, Additional history exists CKD PHOS USE SMARTSET 67417 04/08/202403/14, 01/23/2022, 01/13/2021, Additional history exists TSH [...] the patient have Health Care Power of Topstitcher Lockstitch? No Code Status History Code Status Date Activated Date Inactivated Comments Full Code 07/27/2014 1:43 PM 07/28/2014 2:00 PM This order reflects the patients wishes and were consensually agreed upon. Question Answer Comments Discussion of Advance Directives occurred with: Not Discussed Does the patient have a Living Will? No Does the patient have Health Care Power of Topstitcher Lockstitch? No Full Code 07/21/2014 11:34 AM 07/21/2014 10:34 PM Thi s order reflects the patients wishes and were consensually agreed upon. Question Answer Comments Discussion of Advance Directives occurred with: Not Discussed Does the patient have a Living Will? No Does the patient have Health Care Power of Topstitcher Lockstitch? No Full Code 03/14/2013 10:18 PM 03/25/2013 2:39 PM Thi s order reflects the patients wishes and were consensually agreed upon. Question Answer Comments Discussion of Advance Directives occurred with: Not Discussed Does the patient have a Living Will? No Does the patient have Health Care Power of Topstitcher Lockstitch? No Healthcare Agents on File Name Relationship Healthcare Agent Relationship Communication Jose HENDRIX Adult Child Health Department Helper resentative (appointed verbally by patient or by statute hierarchy) Care Teams High Speed Printer Operator Relationship Specialty Start Date End Date Roslyn Gale DO [address] [facility] [place] [id number] PCP - General Family Medicine 11/10/18 documented as of this encounter
--- OUTSIDE RECORDS SUMMARY | 2023-05-18 10:48 | External Medical Summary | Summary of Care ---
Author Name Unknown Organization [facility] Address [address] [place] [address] Phone [phone] Care Team Providers Care Pasting Inspector Name Role Phone oRslyn Gale DO Primary Care Provider +1- [phone] Reason for Visit * Reason Onset Date Comments Palliative Care Follow-up 04/23/2023 Encounter Details Date Type Department Care Team (Late st Contact Info) Description 04/23/2023 Telephone Palliative Medicine, [facility] [address] [facility] 5th [place] [address] Aleta Blake CRNP [address] [place] [address] Palliative Care Follow-up Allergies Active Allergy Reactions Criticality Noted Date Comments Pantoprazole Hives 01/13/2016 Sucralfate Hives 01/13/2016 documented as of this encounter (statuses as of 04/23/2023) Medications Medication Sig Dispensed Refills Start Date End Date Status ASPIRIN 81 MG PO CHEWIndications:INTE RFACED RESULT Take 1 tablet by mouth daily 32 Tab 11 03/24/2013 Active Nitroglycerin 0.4 MG Sublingual Tablet Sublingual (Nitrostat)Indicatio ns:Cardiac arrest (HCC),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),Crescendo angina [...] Oral Tablet (pLAVix)Indications: Cardiomyopathy, ischemic,Atheroscler osis of [place] coronary artery of [place] heart with stable angina pectoris (HCC) take 1 tablet by mouth once daily 90 Tablet 3 02/23/2023 Active Metoprolol Succinate ER 50 MG Oral Tablet Extended Release 24 Hour (toPROL XL)Indications:Ather osclerosis of [place] coronary artery of [place] heart with stable angina pectoris (HCC),Cardiomyopathy , [...] as of this encounter (statuses as of 04/23/2023) Active Problems Problem Noted Date Diagnosed Date Osteoarthritis, knee 03/28/2023 Protein-calorie malnutrition 10/19/2022 VT (ventricular tachycardia) 07/13/2021 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 stage 3 chronic kidney disease 07/13/2021 VF (ventricular fibrillation) 05/11/2021 S/P drug eluting coronary stent placement 2020 Heart failure, systolic, due to CAD 07/13/2020 Atherosclerosis of [place] co ronary artery of [place] heart with stable angina pectoris 11/10/2018 History of cardiac arrest 11/10/2018 History of prostate cancer 04/22/2017 S/P CABG (coronary artery bypass graft) 04/22/20 17 Statin intolerance 10/23/2016 Gastroesophageal reflux disease with esophagitis 2015 HTN, goal below 130/80 2015 BPH without obstruction/lower urinary tract symp toms 08/20/2014 ICD (implantable cardioverter-defibrillator) in place 03/20/2013 Overview: -Cardioverter-defibrillator poultry farmer 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, model [id number] Fortify, serial number [id number]. -Atrial lead poultry farmer meat [employer], model 1688TC-52 Tendril SDX, serial number [id number]. -Right ventricular defibrillator lead poultry farmer meat [employer], model 7122Q-65 Durata, serial number [id number]. Dyslipidemia, goal LDL below 70 03/18/2013 Acquired hypothyroidism 03/18/2013 Cardiomyopathy, ischemic 03/15/2013 documented as of this encounter (statuses as of 04/23/2023) Resolved Problems Problem Noted Date Diagnosed Date [...] as of this encounter (statuses as of 04/23/2023) Immunizations Name Administration Dates Next Due Pneumococcal [...] encounter Miscellaneous Notes * Telephone Encounter - Juanita Drake LPN - 04/23/2023 1:22 PM EST Patient was scheduled for a new patient palliative visit today at 1pm Phone call to patient at 1:16pm Patient answered home phone He states he is not coming to appointment He is very overwhelmed with all the appointments and phone calls he has been getting, and he isn't even sure what this appointment was for Explained to patient the role of palliative medicine Informed him this visit was to discuss his goals of care in regards to his healthcare Explained to patient what a POLST form was-he does not recall he has ever completed one before Did inform patient that this can be done at PCP or cardiology as well He would prefer that as that would mean less appointments for him He does not want to reschedule palliative visit at this time FYI to Care Team documented in this encounter Plan of Treatment Upcoming Encounters Date Type Department Care Team (Late st Contact Info) Description 04/24/2023 10:30 AM EST Office Visit Cardiology, [facility] [address] [place] [address] Alexis Danielle 132 [facility] [place] [address] 04/24/2023 10:30 AM EST Cardiac Studies Cardiology, [facility] [address] [facility] [place] [address] [facility] [address] [place] [address] 04/30/2023 12:20 PM EST Office Visit Family Practice [address], [place] [address] [place] [address] Paul Brandt PA-C [address] [place] [address] 05/22/2023 8:15 AM EST Office Visit Urology [place] [address] [place] [address] [place] [address] Ronny Mackey Jr., MD [address] [place] [address] [place] [address] 10/04/2023 7:20 AM EDT Office Visit Family Practice [address], [place] [address] [place] [address] Roslyn Gale DO [address] [place] [address] Health Maintenance Due Date Last Done Comments COVID-19 Vaccine (#1) 06/07/1941 Zoster Vaccines (2 of 3) 07/12/2014 05/17/2014 Depression Screening 11/22/2020 11/23/2019 Albumin/Creatinine Ratio 10/06/2023 023, 04/15/2017, 11/10/2014 GFR 10/07/2023 04/08/2023, 10/13, 10/24/2022, Additional history exists CKD HGB USE SMARTSET 07587 04/08/202404/08, 04/08/2023, 10/24/2022, Additional history exists CKD PHOS USE SMARTSET 65176 04/08/202403/14, 01/23/2022, 01/13/2021, Additional history exists TSH [...] the patient have Health Care Power of Bed And Breakfast Cook? No Code Status History Code Status Date Activated Date Inactivated Comments Full Code 07/27/2014 1:43 PM 07/28/2014 2:00 PM This order reflects the patients wishes and were consensually agreed upon. Question Answer Comments Discussion of Advance Directives occurred with: Not Discussed Does the patient have a Living Will? No Does the patient have Health Care Power of Bed And Breakfast Cook? No Full Code 07/21/2014 11:34 AM 07/21/2014 10:34 PM Thi s order reflects the patients wishes and were consensually agreed upon. Question Answer Comments Discussion of Advance Directives occurred with: Not Discussed Does the patient have a Living Will? No Does the patient have Health Care Power of Bed And Breakfast Cook? No Full Code 03/14/2013 10:18 PM 03/25/2013 2:39 PM Thi s order reflects the patients wishes and were consensually agreed upon. Question Answer Comments Discussion of Advance Directives occurred with: Not Discussed Does the patient have a Living Will? No Does the patient have Health Care Power of Bed And Breakfast Cook? No Healthcare Agents on File Name Relationship Healthcare Agent Relationship Communication Jose HENDRIX Adult Child Health Locomotive Mechanic resentative (appointed verbally by patient or by statute hierarchy) Care Teams Pasting Inspector Relationship Specialty Start Date End Date Roslyn Gale DO [address] [facility] [place] [address] PCP - General Family Medicine 11/10/18 documented as of this encounter
--- OUTSIDE RECORDS SUMMARY | 2023-05-18 10:48 | External Medical Summary | Summary of Care ---
Author Name Unknown Organization [facility] Address [address] [facility] [address] Phone [phone] Care Team Providers Care Senior Billing Consultant Name Role Phone Roslyn Gale DO Primary Care Provider +1- [phone] Encounter Details Date Type Department Care Team (Late st Contact Info) Description 04/12/2023 Telephone [facility] [place] [address] [place] [address] Nancy Ramon DO [address] [facility] [place] [address] Allergies Active Allergy Reactions Criticality Noted Date Comments Pantoprazole Hives 01/13/2016 Sucralfate Hives 01/13/2016 documented as of this encounter (statuses as of 04/17/2023) Medications Medication Sig Dispensed Refills Start Date End Date Status ASPIRIN 81 MG PO CHEWIndications:INTE RFACED RESULT Take 1 tablet by mouth daily 32 Tab 11 03/24/2013 Active Nitroglycerin 0.4 MG Sublingual Tablet Sublingual (Nitrostat)Indicatio ns:Cardiac arrest (HCC),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),Crescendo angina [...] Oral Tablet (pLAVix)Indications: Cardiomyopathy, ischemic,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) take 1 tablet by mouth once daily 90 Tablet 3 02/23/2023 Active Metoprolol Succinate ER 50 MG Oral Tablet Extended Release 24 Hour (toPROL XL)Indications:Ather osclerosis of [place] coronary artery of [place] heart with stable angina pectoris (HCC),Cardiomyopathy , [...] as of this encounter (statuses as of 04/17/2023) Active Problems Problem Noted Date Diagnosed Date Osteoarthritis, knee 03/28/2023 Protein-calorie malnutrition 10/19/2022 VT (ventricular tachycardia) 07/13/2021 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 stage 3 chronic kidney disease 07/13/2021 VF (ventricular fibrillation) 05/11/2021 S/P drug eluting coronary stent placement 2020 Heart failure, systolic, due to CAD 07/13/2020 Atherosclerosis of [place] co ronary artery of [place] heart with stable angina pectoris 11/10/2018 History of cardiac arrest 11/10/2018 History of prostate cancer 04/22/2017 S/P CABG (coronary artery bypass graft) 04/22/20 17 Statin intolerance 10/23/2016 Gastroesophageal reflux disease with esophagitis 2015 HTN, goal below 130/80 2015 BPH without obstruction/lower urinary tract symp toms 08/20/2014 ICD (implantable cardioverter-defibrillator) in place 03/20/2013 Overview: -Cardioverter-defibrillator expander [employer], model [id number] Fortify, serial number [id number]. -Atrial lead expander [employer], model 1688TC-52 Tendril SDX, serial number [id number]. -Right ventricular defibrillator lead expander [employer], model 7122Q-65 Durata, serial number [id number]. Dyslipidemia, goal LDL below 70 03/18/2013 Acquired hypothyroidism 03/18/2013 Cardiomyopathy, ischemic 03/15/2013 documented as of this encounter (statuses as of 04/17/2023) Resolved Problems Problem Noted Date Diagnosed Date [...] as of this encounter (statuses as of 04/17/2023) Immunizations Name Administration Dates Next Due Pneumococcal [...] encounter Miscellaneous Notes * Telephone Encounter - Jeremiah Belcher LPN [...] 1:00 PM EST Office Visit Palliative Medicine, [facility] [address] [facility] 5th [place] [address] Aleta Blake CRNP [address] [place] [address] 04/24/2023 10:30 AM EST Office Visit Cardiology, [facility] [address] [facility] [place] [address] Alexis Danielle DO [address] [facility] [place] [address] 04/24/2023 10:30 AM EST Cardiac Studies Cardiology, [facility] [address] [facility] [place] [address] [place], Pacer [facility] [address] [facility] [address] 04/30/2023 12:20 PM EST Office Visit Family [facility] [place] [address] [place] [address] Paul Brandt PA-C [address] [place] [address] 05/22/2023 8:15 AM EST Office Visit [facility] [address] [place] [address] [place] [address] [place] Sanz, Ronny Esquivel MD [address] [place] [address] [place] [address] 10/04/2023 7:20 AM EDT Office Visit Family Practice [address], [place] [address] [place] [address] Roslyn Gale DO [address] [place] [address] Health Maintenance Due Date Last Done Comments COVID-19 Vaccine (#1) 06/07/1941 Zoster Vaccines (2 of 3) 07/12/2014 05/17/2014 Depression Screening 11/22/2020 11/23/2019 Albumin/Creatinine Ratio 10/06/2023 023, 04/15/2017, 11/10/2014 GFR 10/07/2023 04/08/2023, 10/13, 10/24/2022, Additional history exists CKD HGB USE SMARTSET 25256 04/08/202404/08, 04/08/2023, 10/24/2022, Additional history exists CKD PHOS USE SMARTSET 12165 04/08/202403/14, 01/23/2022, 01/13/2021, Additional history exists TSH [...] the patient have Health Care Power of Printing Equipment Mechanic? No Code Status History Code Status Date Activated Date Inactivated Comments Full Code 07/27/2014 1:43 PM 07/28/2014 2:00 PM This order reflects the patients wishes and were consensually agreed upon. Question Answer Comments Discussion of Advance Directives occurred with: Not Discussed Does the patient have a Living Will? No Does the patient have Health Care Power of Printing Equipment Mechanic? No Full Code 07/21/2014 11:34 AM 07/21/2014 10:34 PM Thi s order reflects the patients wishes and were consensually agreed upon. Question Answer Comments Discussion of Advance Directives occurred with: Not Discussed Does the patient have a Living Will? No Does the patient have Health Care Power of Printing Equipment Mechanic? No Full Code 03/14/2013 10:18 PM 03/25/2013 2:39 PM Thi s order reflects the patients wishes and were consensually agreed upon. Question Answer Comments Discussion of Advance Directives occurred with: Not Discussed Does the patient have a Living Will? No Does the patient have Health Care Power of Printing Equipment Mechanic? No Healthcare Agents on File Name Relationship Healthcare Agent Relationship Communication Jose HENDRIX Adult Child Health Verification Clerk resentative (appointed verbally by patient or by statute hierarchy) Care Teams Senior Billing Consultant Relationship Specialty Start Date End Date Roslyn Gale DO [address] [facility] [place] [address] PCP - General Family Medicine 11/10/18 documented as of this encounter
--- OUTSIDE RECORDS SUMMARY | 2023-05-18 10:48 | External Medical Summary | Summary of Care ---
Author Name Unknown Organization [facility] Address [address] [place] [address] Phone [phone] Care Team Providers Care Log Cut Off Sawyer Name Role Phone Roslyn Gale DO Primary Care Provider +1- [phone] Reason for Visit * Reason Onset Date Comments Palliative Care Follow-up 04/23/2023 Encounter Details Date Type Department Care Team (Late st Contact Info) Description 04/23/2023 Telephone Palliative Medicine, [facility] [address] [facility] 5th [place] [address] Aleta Blake CRNP [address] [place] [address] Palliative Care Follow-up Allergies Active [...] Sublingual (Nitrostat)Indicatio ns:Cardiac arrest (HCC),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),Crescendo angina [...] Oral Tablet (pLAVix)Indications: Cardiomyopathy, ischemic,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) take 1 tablet by mouth once daily 90 Tablet 3 02/23/2023 Active Metoprolol Succinate ER 50 MG Oral Tablet Extended Release 24 Hour (toPROL XL)Indications:Ather osclerosis of [place] coronary artery of [place] heart with stable angina pectoris (HCC),Cardiomyopathy , [...] systolic, due to CAD 07/13/2020 Atherosclerosis of [place] co ronary artery of hoh heart with stable angina pectoris 11/10/2018 History of cardiac arrest 11/10/2018 History of prostate cancer 04/22/2017 S/P CABG (coronary artery bypass graft) 04/22/20 17 Statin intolerance 10/23/2016 Gastroesophageal reflux disease with esophagitis 2015 HTN, goal below 130/80 2015 BPH without obstruction/lower urinary tract symp toms 08/20/2014 ICD (implantable cardioverter-defibrillator) in place 03/20/2013 Overview: -Cardioverter-defibrillator child's nurse [employer], model [id number] Fortify, serial number [id number]. -Atrial lead child's nurse [employer], model 1688TC-52 Tendril SDX, serial number [id number]. -Right ventricular defibrillator lead child's nurse [employer], model 7122Q-65 Durata, serial number [id number]. Dyslipidemia, goal LDL below 70 03/18/2013 Acquired [...] encounter Miscellaneous Notes * Telephone Encounter - Juana Mccall MD - 04/23/2023 1:58 PM EST Sharan pierce seeing you 04/30/23 * Telephone Encounter - Juanita Drake LPN [...] 04/24/2023 10:30 AM EST Office Visit Cardiology, [facility] [address] [place] [address] Alexis Danielle DO [address] [place] [address] 04/24/2023 10:30 AM EST Cardiac Studies Cardiology, [facility] [address] [place] [address] [place], Pacer Clinic [facility] [address] [place] [address] 04/30/2023 12:20 PM EST Office Visit [facility] [place] Bull[place] [address] [place] [address] Paul Brandt PA-C [address] [place] [address] 05/22/2023 8:15 AM EST Office Visit Urology Sherman Coleman [address] [place] [address] [place] [address] Ronny Mackey Jr., MD [address] [place] [address] [place] [address] 10/04/2023 7:20 AM EDT Office Visit [facility] [place] Bullock [address] [place] [address] Roslyn Gale, DO [address] [facility] [place] [address] Health Maintenance Due Date Last Done Comments COVID-19 Vaccine (#1) 06/07/1941 Zoster Vaccines (2 of 3) 07/12/2014 05/17/2014 Depression Screening 11/22/2020 11/23/2019 Albumin/Creatinine Ratio 10/06/2023 023, 04/15/2017, 11/10/2014 GFR 10/07/2023 04/08/2023, 10/13, 10/24/2022, Additional history exists CKD HGB USE SMARTSET 18699 04/08/202404/08, 04/08/2023, 10/24/2022, Additional history exists CKD PHOS USE SMARTSET 53235 04/08/202403/14, 01/23/2022, 01/13/2021, Additional history exists TSH [...] the patient have Health Care Power of Ocean Freight Forwarder? No Code Status History Code Status Date Activated Date Inactivated Comments Full Code 07/27/2014 1:43 PM 07/28/2014 2:00 PM This order reflects the patients wishes and were consensually agreed upon. Question Answer Comments Discussion of Advance Directives occurred with: Not Discussed Does the patient have a Living Will? No Does the patient have Health Care Power of Ocean Freight Forwarder? No Full Code 07/21/2014 11:34 AM 07/21/2014 10:34 PM Thi s order reflects the patients wishes and were consensually agreed upon. Question Answer Comments Discussion of Advance Directives occurred with: Not Discussed Does the patient have a Living Will? No Does the patient have Health Care Power of Ocean Freight Forwarder? No Full Code 03/14/2013 10:18 PM 03/25/2013 2:39 PM Thi s order reflects the patients wishes and were consensually agreed upon. Question Answer Comments Discussion of Advance Directives occurred with: Not Discussed Does the patient have a Living Will? No Does the patient have Health Care Power of Ocean Freight Forwarder? No Healthcare Agents on File Name Relationship Healthcare Agent Relationship Communication Jose HENDRIX Adult Child Health Computer Information Science Professor resentative (appointed verbally by patient or by statute hierarchy) Care Teams Log Cut Off Sawyer Relationship Specialty Start Date End Date Roslyn Gale DO [address] [facility] [place] [address] PCP - General Family Medicine 11/10/18 documented as of this encounter
--- OUTSIDE RECORDS SUMMARY | 2023-05-18 10:48 | External Medical Summary | Summary of Care ---
Author Name Unknown Organization [facility] Address [address] [place] [address] Phone [phone] Care Team Providers Care Pacs Administrator Name Role Phone Roslyn Gale DO Primary Care Provider [phone] Encounter Details Date Type Department Care Team (Late st Contact Info) Description 04/22/2023 Result Scan Unspecified Department Alexis Danielle DO [address] [place] [address] <No scans attached> Allergies Active Allergy Reactions Criticality Noted Date Comments Pantoprazole Hives 01/13/2016 Sucralfate Hives 01/13/2016 documented as of this encounter (statuses as of 04/22/2023) Medications Medication Sig Dispensed Refills Start Date End Date Status ASPIRIN 81 MG PO CHEWIndications:INTE RFACED RESULT Take 1 tablet by mouth daily 32 Tab 11 03/24/2013 Active Nitroglycerin 0.4 MG Sublingual Tablet Sublingual (Nitrostat)Indicatio ns:Cardiac arrest (HCC),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 (HCC),Crescendo angina [...] Oral Tablet (pLAVix)Indications: Cardiomyopathy, ischemic,Atheroscler osis of [place] coronary artery of [place] heart with stable angina pectoris (HCC) take 1 tablet by mouth once daily 90 Tablet 3 02/23/2023 Active Metoprolol Succinate ER 50 MG Oral Tablet Extended Release 24 Hour (toPROL XL)Indications:Ather osclerosis of [place] coronary artery of [place] heart with stable angina pectoris (HCC),Cardiomyopathy , [...] as of this encounter (statuses as of 04/22/2023) Active Problems Problem Noted Date Diagnosed Date Osteoarthritis, knee 03/28/2023 Protein-calorie malnutrition 10/19/2022 VT (ventricular tachycardia) 07/13/2021 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 stage 3 chronic kidney disease 07/13/2021 VF (ventricular fibrillation) 05/11/2021 S/P drug eluting coronary stent placement 2020 Heart failure, systolic, due to CAD 07/13/2020 Atherosclerosis of [place] co ronary artery of [place] heart with stable angina pectoris 11/10/2018 History of cardiac arrest 11/10/2018 History of prostate cancer 04/22/2017 S/P CABG (coronary artery bypass graft) 04/22/20 17 Statin intolerance 10/23/2016 Gastroesophageal reflux disease with esophagitis 2015 HTN, goal below 130/80 2015 BPH without obstruction/lower urinary tract symp toms 08/20/2014 ICD (implantable cardioverter-defibrillator) in place 03/20/2013 Overview: -Cardioverter-defibrillator still operator batch or continuous [employer], model [id number] Fortify, serial number [id number]. -Atrial lead still operator batch or continuous [employer], model 1688TC-52 Tendril SDX, serial number [id number]. -Right ventricular defibrillator lead still operator batch or continuous [employer], model [id number]-65 Durata, serial number [id number]. Dyslipidemia, goal LDL below 70 03/18/2013 Acquired hypothyroidism 03/18/2013 Cardiomyopathy, ischemic 03/15/2013 documented as of this encounter (statuses as of 04/22/2023) Resolved Problems Problem Noted Date Diagnosed Date [...] as of this encounter (statuses as of 04/22/2023) Immunizations Name Administration Dates Next Due Pneumococcal [...] on file documented as of this encounter Plan of Treatment Upcoming Encounters Date Type Department Care Team (Late st Contact Info) Description 04/23/2023 1:00 PM EST Office Visit Palliative Medicine, [facility] [address] [facility] 5[address] [place] [address] Aleta Blake CRNP [address] [place] [address] 04/24/2023 10:30 AM EST Office Visit Cardiology, [facility] [address] [place] [address] Alexis Danielle DO [address] [place] [address] 04/24/2023 10:30 AM EST Cardiac Studies Cardiology, [facility] [address] [place] [address] [place], [address] [place] [address] 04/30/2023 12:20 PM EST Office Visit Family Practice [facility] [place] [address] [place] [place] [address] Paul Brandt PA-C [address] [place] [address] 05/22/2023 8:15 AM EST Office Visit Urology [facility] [address] [place] [address] [place] [address] Ronny Mackey Jr., MD [address] [place] [address] [place] [address] 10/04/2023 7:20 AM EDT Office Visit [facility] [place] [address] [place] [address] Roslyn Gale DO [address] [place] [address] Health Maintenance Due Date Last Done Comments COVID-19 Vaccine (#1) 06/07/1941 Zoster Vaccines (2 of 3) 07/12/2014 05/17/2014 Depression Screening 11/22/2020 11/23/2019 Albumin/Creatinine Ratio 10/06/2023 023, 04/15/2017, 11/10/2014 GFR 10/07/2023 04/08/2023, 10/13, 10/24/2022, Additional history exists CKD HGB USE SMARTSET 88485 04/08/202404/08, 04/08/2023, 10/24/2022, Additional history exists CKD PHOS USE SMARTSET 83227 04/08/202403/14, 01/23/2022, 01/13/2021, Additional history exists TSH [...] Not on filedocumented as of this encounter Procedures Procedure Name Priority Date/Time Associated Diagnosis Comments CARDIOLOGY SCANNED RESULT 04/22/2023 documented in this encounter Results * CARDIOLOGY SCANNED RESULT (04/22/2023) 04/22/2023 Alexis Danielle DO OTHER documented in this encounter Advance Directives Latest [...] the patient have Health Care Power of Conservation Policy Analyst? No Code Status History Code Status Date Activated Date Inactivated Comments Full Code 07/27/2014 1:43 PM 07/28/2014 2:00 PM This order reflects the patients wishes and were consensually agreed upon. Question Answer Comments Discussion of Advance Directives occurred with: Not Discussed Does the patient have a Living Will? No Does the patient have Health Care Power of Conservation Policy Analyst? No Full Code 07/21/2014 11:34 AM 07/21/2014 10:34 PM Thi s order reflects the patients wishes and were consensually agreed upon. Question Answer Comments Discussion of Advance Directives occurred with: Not Discussed Does the patient have a Living Will? No Does the patient have Health Care Power of Conservation Policy Analyst? No Full Code 03/14/2013 10:18 PM 03/25/2013 2:39 PM Thi s order reflects the patients wishes and were consensually agreed upon. Question Answer Comments Discussion of Advance Directives occurred with: Not Discussed Does the patient have a Living Will? No Does the patient have Health Care Power of Conservation Policy Analyst? No Healthcare Agents on File Name Relationship Healthcare Agent Relationship Communication Jose HENDRIX Adult Child Health Script Girl resentative (appointed verbally by patient or by statute hierarchy) Care Teams Pacs Administrator Relationship Specialty Start Date End Date Roslyn Gale DO [address] [facility] [place] [id number] PCP - General Family Medicine 11/10/18 documented as of this encounter
--- OUTSIDE RECORDS SUMMARY | 2023-05-18 10:48 | External Medical Summary | Summary of Care ---
Author Name Unknown Organization [facility] Address [address] [facility] [place] [address] Phone [phone] Care Team Providers Care Home Care Giver Name Role Phone Roslyn Gale DO Primary Care Provider [phone] Reason for Visit * Reason Comments Follow Up Encounter Details Date Type Department Care Team (Late st Contact Info) Description 04/24/2023 10:30 AM EST Office Visit Cardiology, [facility] [address] [place] [address] Alexis Danielle DO [address] [place] [id number] ICD (implantable cardioverter-defibril lator) battery depletion*; Ischemic cardiomyopathy; Heart failure, systolic, due to CAD ; History of cardiac arrest; SSS (sick sinus syndrome) ([facility]) Allergies Active Allergy Reactions Criticality Noted Date Comments Pantoprazole Hives 01/13/2016 Sucralfate Hives 01/13/2016 documented as of this encounter (statuses as of 04/24/2023) Medications Medication Sig Dispensed Refills Start Date End Date Status ASPIRIN 81 MG PO CHEWIndications:INTE RFACED RESULT Take 1 tablet by mouth daily 32 Tab 11 03/24/2013 Active Nitroglycerin 0.4 MG Sublingual Tablet Sublingual (Nitrostat)Indicatio ns:Cardiac arrest (HCC),Atherosclerosi s of [place] coronary artery of [place] heart with stable angina pectoris (HCC),Crescendo angina [...] Oral Tablet (pLAVix)Indications: Cardiomyopathy, ischemic,Atheroscler osis of [place] coronary artery of [place] heart with stable angina pectoris (HCC) take 1 tablet by mouth once daily 90 Tablet 3 02/23/2023 Active Metoprolol Succinate ER 50 MG Oral Tablet Extended Release 24 Hour (toPROL XL)Indications:Ather osclerosis of [place] coronary artery of [place] heart with stable angina pectoris (HCC),Cardiomyopathy , [...] systolic, due to CAD 07/13/2020 Atherosclerosis of [place] co ronary artery of [place] heart with stable angina pectoris 11/10/2018 History of cardiac arrest 11/10/2018 History of prostate cancer 04/22/2017 S/P CABG (coronary artery bypass graft) 04/22/20 17 Statin intolerance 10/23/2016 Gastroesophageal reflux disease with esophagitis 2015 HTN, goal below 130/80 2015 BPH without obstruction/lower urinary tract symp toms 08/20/2014 ICD (implantable cardioverter-defibrillator) in place 03/20/2013 Overview: -Cardioverter-defibrillator cold food packer [employer], model [id number] Fortify, serial number [id number]. -Atrial lead cold food packer [employer], model 1688TC-52 Tendril SDX, serial number [id number]. -Right ventricular defibrillator lead cold food packer [employer], model 7122Q-65 Durata, serial number [id number]. Dyslipidemia, goal LDL below 70 03/18/2013 Acquired [...] Sign Reading Time Taken Comments Blood Pressure 112/74 04/24/2023 10:40 AM EST Pulse 64 04/24/2023 10:40 AM EST Temperature - - Respiratory Rate 16 04/24/2023 10:40 AM EST Oxygen Saturation - - Inhaled Oxygen Concentration - - Weight 45.8 kg (101 lb) 04/24/2023 10:40 AM EST Height - - Body Mass Index 18.47 03/28/2023 7:49 AM EST documented in this encounter Progress Notes * Alexis Danielle, DO - 04/24/2023 10:57 AM EST Cardiology Outpatient Follow-up Jose Lida Hendrix Sr. is a 82 year old male who is seen for follow-up of cardiomyopathy. HPI: This is an 82-year-old male patient who had coronary artery bypass surgery 1980 with a redo in 1999. He has had previous PCI of the vein graft. He has also had 2 cardiac arrest. The 1st occurred in 2009 when he received a secondary prevention ICD. He then had a 2nd cardiac arrest in 2020 and was rescued by his ICD. His last estimated left ventricular ejection fraction was 15-20% by echocardiography. Recently he has had significant weight loss and chris cachexia. During his last visit we stoppedhis amiodarone because of possible toxicity. Labs also indicated an elevated TSH and he has since been started on thyroid supplement by his PCP. He returned today for follow-up with his son. There has been some improvement in his appetite and his son feels he has gained a little weight back. Since his last visit, he had a fall which resulted in a laceration of the bridge of his nose requiring sutures. Also during that emergency department visit he had several CT scans including a CT of the chest which revealed an enlargement of left atrium with compression of the esophagus which is not unexpected considering his severe heart disease. It could be contributing to his anorexia. 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 CHF, NYHA class 3 and CKD stage 3 (HCC) Per CKD protocol BPH without obstruction/lower urinary tract symptoms 08/20/2014 CAD (coronary artery disease) Cardiac arrest (HCC) 04/22/2018 HLD (hyperlipidemia) HTN (hypertension) INFORMATION 02/2013 cardiac arrest - hospitalized over 1 week Malignant neoplasm of prostate (HCC) 08/20/2014 Prostate cancer (HCC) Thyroid activity decreased TIA (transient ischemic attack) Patient Active Problem List Diagnosis Code Cardiomyopathy, ischemic I25.5 Dyslipidemia, goal LDL below 70 E78.5 Acquired hypothyroidism E03.9 ICD (implantable cardioverter-defibrillator) in place Z95.810 BPH without obstruction/lower urinary tract symptoms N40.0 Gastroesophageal reflux disease with esophagitis K21.00 HTN, goal below 130/80 I10 Statin intolerance Z78.9 History of prostate cancer Z85.46 S/P CABG (coronary artery bypass graft) Z95.1 Atherosclerosis of sh[place]ne[place] coronary artery of [place] heart with stable angina pectoris (HCC) I25.118 History of cardiac arrest Z86.74 Heart failure, systolic, due to CAD I50.20, I25.10 VF (ventricular fibrillation) ([facility]) I49.01 S/P drug eluting coronary stent placement Z95.5 VT (ventricular tachycardia) ([facility]) I47.20 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 stage 3 chronic kidney disease ([facility]) I13.0, I50.20, N18.30 Protein-calorie malnutrition ([facility]) E46 Osteoarthritis, knee M17.9 Past Surgical History: Procedure Laterality Date BYPASS GRAFT ANGIOGRAPHY W/LEFT HEART CATH 03/19/2013 BYPASS GRAFT ANGIOGRAPHY W/LEFT HEART CATH performed by Maribel Lion MD at [facility] BYPASS GRAFT ANGIOGRAPHY W/LEFT HEART CATH 07/14/2014 BYPASS GRAFT ANGIOGRAPHY W/LEFT HEART CATH performed by Ken Haider MD at [facility] CABG, ARTERIAL, FOUR OR MORE 1991 4 CARDIAC ANGIOPLASTY, PERCUTANEOUS, 1 ARTERY 07/21/2014 PTCA, CARDIAC ANGIOPLASTY, PERCUTANEOUS, 1 ARTERY performed by Ken Haider MD at [facility] CARDIAC ANGIOPLASTY, PERCUTANEOUS, 1 ARTERY 07/27/2014 PTCA, CARDIAC ANGIOPLASTY, PERCUTANEOUS, 1 ARTERY performed by Ken Haider MD at [facility] CORONARY ANGIOGRAPHY W/LEFT HEART CATH 03/19/2013 CORONARY ANGIOGRAPHY W/LEFT HEART CATH performed by Maribel Lion MD at [facility] HEART ELECTROCONVERSION, EXTERNAL 05/20/2013 DC CARDIOVERSION performed by Samantha Hernández IV, MD at [facility] INSERT/REPLACE DEFIBRILLATOR W/TRANSVERSE LEAD(S) 03/20/2013 NON-THOR ICD LEADS AND GENERATOR IMPLANT performed by Samantha Hernández IV, MD at [facility] LAPAROSCOPY; CHOLECYSTECTOMY 01/20/2018 01/20/2018 laparoscopic cholecystecomy [facility] Dr. Stnaton LAPAROSCOPY; CHOLECYSTECTOMY 01/20/2018 01/20/2018 laparoscopic cholecystectomy [facility] Dr. Stanton REMOVAL OF APPENDIX REMOVAL OF TONSILS, UNDER AGE 12 REMOVE SMALL BLADDER STONE, SIMPLE N/A 02/29/2020 LITHOLAPAXY SIMPLE performed by Ronny Mackey Jr., MD at OR [facility] REOPERATION, CORONARY ARTERY BYPASS PROCEDURE OR VALVE PROCEDURE 2000 3 Family History Problem Relation Age of Onset Other (lung cancer [Other]) Mother Other (cva [Other]) Father Heart Disorder Brother all brothers have heart disease Social History Tobacco Use Smoking status: Never Smokeless tobacco: Never Substance Use Topics Alcohol use: No Drug use: No Review of patient's allergies indicates: Allergen Reactions Protonix [Pantoprazole] Hives Sucralfate Hives Current Outpatient Medications Medication Sig Dispense Refill ASPIRIN 81 MG PO CHEW Take 1 tablet by mouth daily 32 Tab 11 Finasteride 5 MG Oral Tablet (Proscar) Take 1 Tablet by mouth in the morning. 90 Tablet 3 Rosuvastatin Calcium 5 MG Oral Tablet (Crestor) Take 1 Tablet by mouth in the morning. 90 Tablet 3 Docusate Sodium 100 MG Oral Capsule (Colace) Take 1 Capsule by mouth every night at bedtime. 90 Capsule 3 Torsemide 10 MG Oral Tablet (Demadex) Take 0.5 Tablets by mouth in the morning. 90 Tablet 3 Isosorbide Mononitrate ER 30 MG Oral Tablet Extended Release 24 Hour (Imdur) Take 1 Tablet by mouthin the morning. 90 Tablet 3 Lisinopril 2.5 MG Oral Tablet (Prinivil) Take 1 Tablet by mouth in the morning. 90 Tablet 3 Clopidogrel Bisulfate 75 MG Oral Tablet (pLAVix) take 1 tablet by mouth once daily 90 Tablet 3 Metoprolol Succinate ER 50 MG Oral Tablet Extended Release 24 Hour (toPROL XL) take 1 tablet by mouth twice a day 180 Tablet 2 Polyethylene Glycol 3350 17 GM/SCOOP Oral Powder (Miralax) Take 17 g by mouth in the morning. 850 g5 Levothyroxine Sodium 100 MCG Oral Tablet (Synthroid) Take 1 Tablet by mouth in the morning. (at least 30 min prior to breakfast or other meds). 90 Tablet 1 Potassium Chloride ER 10 MEQ Oral Capsule Extended Release Take 1 Capsule by mouth in the morning and 1 Capsule before bedtime. 60 Capsule 5 Nitroglycerin 0.4 MG Sublingual Tablet Sublingual (Nitrostat) PLACE 1 TABLET UNDER THE TONGUE EVERY5 MINUTES NEEDED, UP TO 3 DOSES PER EPISODE. (Patient not taking: Reported on 04/03/2023) 25 Tablet 3 No current facility-administered medications for this visit. ROS: Review of Systems: See HPI for pertinent positives. All other review of systems is negative. PHYSICAL EXAMINATION BP 112/74 | Pulse 64 | Resp 16 | Wt 45.8 kg (101 lb) | BMI 18.47 kg/m | BSA 1.42 m Body mass index is 18.47 kg/m. General: no acute distress and stated age Head: normocephalic, no masses, lesions, tenderness or abnormalities Eyes: conjunctiva are pink and non-injected, sclera clear Neck: supple, no adenopathy, no bruits, normal jugular venous pulse, no hepatojugular reflux Chest: normal shape and normal respiratory effort Lungs: clear to auscultation and percussion Cardiac Exam: - regular rate & rhythm, no murmurs gallops or rubs - normal S1, normal S2 Pulses: 2(+) throughout Abdomen: abdomen soft, non-tender, no abnormal masses and no hepatosplenomegaly Musculoskeletal: no gait disturbance, no joint inflammation, no deforming arthritis Extremities: no edema and no cyanosis Neuro: grossly normal exam Laboratory Data Review: Latest Reference Range & Units 04/08/23 11:05 Triglycerides <=174 mg/dL 110 Cholesterol <200 mg/dL 138 Non-HDL Cholesterol <=159 mg/dL 103 HDL Cholesterol >39 mg/dL 35 (L) LDL Cholesterol <=129 mg/dL 81 Sodium 135 - 146 mmol/L 135 Potassium 3.5 - 5.1 mmol/L 3.0 (L) Chloride 98 - 107 mmol/L 94 (L) CO2 22 - 32 mmol/L 26 BUN 6 - 20 mg/dL 11 Creatinine 0.6 - 1.2 mg/dL 0.8 Estimated Glomerular Filtration Rate >=60 mL/min 88 Anion Gap 7 - 15 mmol/L 15 Glucose 70 - 120 mg/dL 78 Calcium 8.4 - 10.2 mg/dL 8.4 Phosphorus 2.5 - 4.8 mg/dL 2.7 Protein 6.0 - 8.3 g/dL 6.5 TSH 0.27 - 4.20 uIU/mL 16.50 (H) TSH WITH FREE T4 IF INDICATED Rpt ! T4, Free 0.9 - 1.7 ng/dL 1.5 CBC Rpt ! CBC WITH WBC DIFFERENTIAL Rpt ! WBC 4.00 - 10.80 K/uL 4.62 HGB 14.0 - 16.8 g/dL 13.4 (L) HCT 40.0 - 48.4 % 41.7 MCV 82.0 - 99.5 fL 95.0 PLT 140 - 400 K/uL 144 Absolute Neutrophils 1.80 - 7.70 K/uL 3.91 Absolute Lymphocytes 1.00 - 4.80 K/ul 0.44 (L) Absolute Monocytes 0.00 - 1.10 K/uL 0.18 Absolute Eosinophils 0.00 - 0.70 K/uL 0.05 Absolute Basophils 0.00 - 0.20 K/uL 0.01 (L): Data is abnormally low (H): Data is abnormally high !: Data is abnormal Rpt: View report in Results Review for more information Impression: Complex coronary artery disease, history of multiple coronary interventions History of CABG, 1980 with redo in 1999 Last PCI 04/2021 with KALEN x2 to SVG History of cardiac arrest x2 ~2010, s/p ICD (generator change 03/2022) History of VFib arrest with rescue from ICD, 04/2021, atypical symptoms. 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 As mentioned above his appetite has improved and he may have gained some of the weight back. Currently he is going to continue his current medications. I will have follow-up with him in 2 months to monitor his progress. This chart was completed in part utilizing [employer] Speech Voice Recognition Software. Grammatical errors, random word insertions, prounoun errors, and incomplete sentences are an occasional consequence of this system due to software limitations, ambient noise, and hardware issues. Any formal questions or concerns about the content, text, or information contained within the body of this dictation should be directly addressed to the provider for clarification. I spent a total of 30-39 minutes (exact time 35 mins) on the date of service in preparation, delivery, and documentation of the care provided to Jose Hendrix Sr. excluding any time spent in theperformance of separately billed services. Alexis Danielle DO Cardiology, [address] [address] 04/24/2023 documented in this encounter Nursing Notes * José Castillo RN - 04/24/2023 10:39 AM EST Examination Room: room 17 Name: Jose Hendrix Sr. Date of : (1940). Reason for Visit: for follow up Interim Hospitalization(s): denies Problems/Concerns: fell several weeks ago and fractured his nose, losing a lot of weight Chest Pain/SOB: denies [facility] Discussed: Not applicable [facility] is a way you can talk to your provider online through e-mail. Would you like to sign up? I can activate it for you? ALREADY ACTIVE Patient was instructed to not get up on the exam table until directed and assisted by their provider; patient is to remain seated in the chair/ wheelchair/ exam table for fall prevention and safety reasons. Patient is aware to have assistance to step down off exam table with personnel. Patient voiced full comprehension of instructions. documented in this encounter Plan of Treatment Upcoming Encounters Date Type Department Care Team (Late st Contact Info) Description 04/30/2023 12:20 PM EST Office Visit Family [facility], [address] [place] [address] Paul Brandt PA-C [address] [place] [address] 05/22/2023 8:15 AM EST Office Visit Urology [facility] [address] [place] [address] [place] [address] Ronny Mackey Jr., MD [address] [place] [address] [place] [address] 07/02/2023 2:30 PM EST Office Visit Cardiology, [facility] [address] [place] [address] Candace Adhikari CRNP [address] [place] [address] 10/04/2023 7:20 AM EDT Office Visit Family [facility] [address] [place] [address] Roslyn Gale DO [address] [place] [address] Health Maintenance Due Date Last Done Comments COVID-19 Vaccine (#1) 06/07/1941 Zoster Vaccines (2 of 3) 07/12/2014 05/17/2014 Depression Screening 11/22/2020 11/23/2019 Albumin/Creatinine Ratio 10/06/2023 023, 04/15/2017, 11/10/2014 GFR 10/07/2023 04/08/2023, 10/13, 10/24/2022, Additional history exists CKD HGB USE SMARTSET 50486 04/08/202404/08, 04/08/2023, 10/24/2022, Additional history exists CKD PHOS USE SMARTSET 29713 04/08/202403/14, 01/23/2022, 01/13/2021, Additional history exists TSH [...] as of this encounter Visit Diagnoses Diagnosis ICD (implantable cardioverter-defibrillator) battery depletion- Primary Ischemic cardiomyopathy Other specified forms of chronic ischemic heart disease Heart failure, systolic, due to CAD Unspecified systolic heart failure History of cardiac arrest Personal history of sudden cardiac arrest SSS (sick sinus syndrome) (HCC) Sinoatrial node dysfunction documented in this encounter Advance Directives Latest [...] the patient have Health Care Power of Vp Corporate Development? No Code Status History Code Status Date Activated Date Inactivated Comments Full Code 07/27/2014 1:43 PM 07/28/2014 2:00 PM This order reflects the patients wishes and were consensually agreed upon. Question Answer Comments Discussion of Advance Directives occurred with: Not Discussed Does the patient have a Living Will? No Does the patient have Health Care Power of Vp Corporate Development? No Full Code 07/21/2014 11:34 AM 07/21/2014 10:34 PM Thi s order reflects the patients wishes and were consensually agreed upon. Question Answer Comments Discussion of Advance Directives occurred with: Not Discussed Does the patient have a Living Will? No Does the patient have Health Care Power of Vp Corporate Development? No Full Code 03/14/2013 10:18 PM 03/25/2013 2:39 PM Thi s order reflects the patients wishes and were consensually agreed upon. Question Answer Comments Discussion of Advance Directives occurred with: Not Discussed Does the patient have a Living Will? No Does the patient have Health Care Power of Vp Corporate Development? No Healthcare Agents on File Name Relationship Healthcare Agent Relationship Communication Jose HENDRIX Adult Child Health Cylinder Inspector resentative (appointed verbally by patient or by statute hierarchy) Care Teams Home Care Giver Relationship Specialty Start Date End Date Roslyn Gale DO [address] [facility] [place] [address] PCP - General Family Medicine 11/10/18 documented as of this encounter"
--- OUTSIDE RECORDS SUMMARY | 2023-05-18 10:48 | External Medical Summary | Summary of Care ---
Author Name Unknown Organization [facility] Address [address] [place] [address] Phone [phone] Care Team Providers Care Signals Collector/Analyst Name Role Phone Roslyn Gale DO Primary Care Provider +1- [phone] Reason for Referral * Evaluate & Treat - Unlimited Visits (Within 3 days (urgent)) - Authorized Specialty Diagnoses / Procedures Referred By Contac sissy Referred To Contact Dietitian / Nutrition Services Diagnoses Heart failure, systolic, due to CAD Cardiomyopathy, ischemic Protein-calorie malnutrition (HCC) Roslyn Gale DO [address] [facility] [place] [address] Referral ID Status Reason Start Date Expiration Date Visits Requested Visits Authorized [id number] Authorized Specialty Services Required 3 999 999 [...] ischemic Protein-calorie malnutrition (HCC) Roslyn Gale DO [address] [place] [address] Referral ID Status Reason Start Date Expiration Date Visits Requested Visits Authorized [id number] Authorized Specialty Services Required 3 999 999 Question Answer Referral Priority Within 3 days (urgent) Where should this appointment be scheduled? [facility] Reason for Referral: Heart Failure Palliative Medicine To Address: Goals of Care Is this referral for [facility] Palliative service? 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) take 1 tablet by mouth once daily 90 Tablet 3 02/23/2023 Active Metoprolol Succinate ER 50 MG Oral Tablet Extended Release 24 Hour (toPROL XL)Indications:Ather osclerosis of [place] coronary artery of [place] heart with stable angina pectoris (HCC),Cardiomyopathy , [...] systolic, due to CAD 07/13/2020 Atherosclerosis of [place] co ronary artery of [place] heart with stable angina pectoris 11/10/2018 History of cardiac arrest 11/10/2018 History of prostate cancer 04/22/2017 S/P CABG (coronary artery bypass graft) 04/22/20 17 Statin intolerance 10/23/2016 Gastroesophageal reflux disease with esophagitis 2015 HTN, goal below 130/80 2015 BPH without obstruction/lower urinary tract symp toms 08/20/2014 ICD (implantable cardioverter-defibrillator) in place 03/20/2013 Overview: -Cardioverter-defibrillator procurement intern [employer], model [id number] Fortify, serial number [id number]. -Atrial lead procurement intern [employer], model 1688TC-52 Tendril SDX, serial number [id number]. -Right ventricular defibrillator lead procurement intern [employer], model 7122Q-65 Durata, serial number [id number]. Dyslipidemia, goal LDL below 70 03/18/2013 Acquired [...] Telephone Encounter - Sarah Mendoza OSA - 04/16/2023 9:21 AM EST LMOM * Telephone Encounter - Sarah Mendoza OSA [...] US of liver is tomorrow.. Called [employer], newborn hearing screener will be out to look at in home care. Thanks! Martha Peters, RN documented in this encounter Plan of Treatment Upcoming Encounters Date Type Department Care Team (Late st Contact Info) Description 04/23/2023 1:00 PM EST Office Visit Palliative Medicine, [facility] [address] [facility] 5th [place] [address] Aleta Blake CRNP [address] [facility] [address] 04/24/2023 10:30 AM EST Office Visit Cardiology, [facility] [address] [facility] [place] [address] Alexis Danielle, [address] [facility] [place] [address] 04/26/2023 9:00 AM EST Cardiac Studies Cardiology, [facility] [address] [facility] [place] [address] Tessie, Pacer Clinic [facility] [address] [facility] [place] [address] 04/30/2023 12:20 PM EST Office Visit Family Practice [address] Lauren Bullock [address] [place] [address] Paul Brandt PA-C [address] [place] [address] 05/22/2023 8:15 AM EST Office Visit Urology Sherman Coleman [address] [place] [address] Ronny Mackey Jr., MD [address] [place] [address] 10/04/2023 7:20 AM EDT [facility] [address] [place] [address] Roslyn Gale DO [address] [place] [address] Scheduled Referrals Name Type Priority Associated Diagnoses [...] Additional history exists CKD HGB USE SMARTSET 93324 04/08/202404/08, 04/08/2023, 10/24/2022, Additional history exists CKD PHOS USE SMARTSET 34488 04/08/202403/14, 01/23/2022, 01/13/2021, Additional history exists TSH [...] the patient have Health Care Power of Air Traffic Control Operator? No Code Status History Code Status Date Activated Date Inactivated Comments Full Code 07/27/2014 1:43 PM 07/28/2014 2:00 PM This order reflects the patients wishes and were consensually agreed upon. Question Answer Comments Discussion of Advance Directives occurred with: Not Discussed Does the patient have a Living Will? No Does the patient have Health Care Power of Air Traffic Control Operator? No Full Code 07/21/2014 11:34 AM 07/21/2014 10:34 PM Thi s order reflects the patients wishes and were consensually agreed upon. Question Answer Comments Discussion of Advance Directives occurred with: Not Discussed Does the patient have a Living Will? No Does the patient have Health Care Power of Air Traffic Control Operator? No Full Code 03/14/2013 10:18 PM 03/25/2013 2:39 PM Thi s order reflects the patients wishes and were consensually agreed upon. Question Answer Comments Discussion of Advance Directives occurred with: Not Discussed Does the patient have a Living Will? No Does the patient have Health Care Power of Air Traffic Control Operator? No Healthcare Agents on File Name Relationship Healthcare Agent Relationship Communication Jose HENDRIX Adult Child Health Or Manager resentative (appointed verbally by patient or by statute hierarchy) Care Teams Signals Collector/Analyst Relationship Specialty Start Date End Date Roslyn Gale DO [address] [facility] [place] [address] PCP - General Family Medicine 11/10/18 documented as of this encounter
--- OUTSIDE RECORDS SUMMARY | 2023-05-18 10:48 | External Medical Summary | Summary of Care ---
Author Name Unknown Organization [facility] Address [address] [place] [address] Phone [phone] Care Team Providers Care Shaper Setter Name Role Phone Roslyn Gale DO Primary Care Provider +1- [phone] Reason for Visit * Reason Onset Date Comments Palliative Care Follow-up 04/23/2023 Encounter Details Date Type Department Care Team (Late st Contact Info) Description 04/23/2023 Telephone Palliative Medicine, [facility] [address] [facility] 5th [place] [address] Aleta Blake CRNP [address] [place] [address] Palliative Care Follow-up Allergies Active [...] Sublingual (Nitrostat)Indicatio ns:Cardiac arrest (HCC),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),Crescendo angina [...] Oral Tablet (pLAVix)Indications: Cardiomyopathy, ischemic,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) take 1 tablet by mouth once daily 90 Tablet 3 02/23/2023 Active Metoprolol Succinate ER 50 MG Oral Tablet Extended Release 24 Hour (toPROL XL)Indications:Ather osclerosis of [place] coronary artery of [place] heart with stable angina pectoris (HCC),Cardiomyopathy , [...] systolic, due to CAD 07/13/2020 Atherosclerosis of [place] co ronary artery of [place] heart with stable angina pectoris 11/10/2018 History of cardiac arrest 11/10/2018 History of prostate cancer 04/22/2017 S/P CABG (coronary artery bypass graft) 04/22/20 17 Statin intolerance 10/23/2016 Gastroesophageal reflux disease with esophagitis 2015 HTN, goal below 130/80 2015 BPH without obstruction/lower urinary tract symp toms 08/20/2014 ICD (implantable cardioverter-defibrillator) in place 03/20/2013 Overview: -Cardioverter-defibrillator remote mortgage underwriter [employer], model [id number] Fortify, serial number [id number]. -Atrial lead remote mortgage underwriter [employer], model 1688TC-52 Tendril SDX, serial number [id number]. -Right ventricular defibrillator lead remote mortgage underwriter [employer], model 7122Q-65 Durata, serial number [id number]. Dyslipidemia, goal LDL below 70 03/18/2013 Acquired [...] money to buy more. Never true 04/22/20 Within the past 12 months, t he [...] encounter Miscellaneous Notes * Telephone Encounter - Paul Brandt PA-C - 04/23/2023 8:59 PM EST Noted. Thank you * Telephone Encounter - Juana Mccall MD [...] 04/24/2023 10:30 AM EST Office Visit Cardiology, [facility] [address] [place] [address] Alexis Danielle, 132 [facility] [place] [address] 04/24/2023 10:30 AM EST Cardiac Studies Cardiology, [facility] [address] [place] [address] [place], Pacer Clinic [facility] 132 [facility] [place] [address] 04/30/2023 12:20 PM EST Office Visit Family [facility] [address] Lauren Bullock [address] [place] [address] Paul Brandt PA-C [address] [place] [address] 05/22/2023 8:15 AM EST Office Visit Urology Sherman Coleman [address] [place] [address] Ronny Mackey Jr., MD [address] [place] [address] 10/04/2023 7:20 AM EDT Office Visit Family [facility] [address], Lauren [address] [place] [address] Roslyn Gale DO [address] [place] [address] Health Maintenance Due Date Last Done Comments COVID-19 Vaccine (#1) 06/07/1941 Zoster Vaccines (2 of 3) 07/12/2014 05/17/2014 Depression Screening 11/22/2020 11/23/2019 Albumin/Creatinine Ratio 10/06/2023 023, 04/15/2017, 11/10/2014 GFR 10/07/2023 04/08/2023, 10/13, 10/24/2022, Additional history exists CKD HGB USE SMARTSET 68565 04/08/202404/08, 04/08/2023, 10/24/2022, Additional history exists CKD PHOS USE SMARTSET 36803 04/08/202403/14, 01/23/2022, 01/13/2021, Additional history exists TSH [...] the patient have Health Care Power of Sausage Stringer? No Code Status History Code Status Date Activated Date Inactivated Comments Full Code 07/27/2014 1:43 PM 07/28/2014 2:00 PM This order reflects the patients wishes and were consensually agreed upon. Question Answer Comments Discussion of Advance Directives occurred with: Not Discussed Does the patient have a Living Will? No Does the patient have Health Care Power of Sausage Stringer? No Full Code 07/21/2014 11:34 AM 07/21/2014 10:34 PM Thi s order reflects the patients wishes and were consensually agreed upon. Question Answer Comments Discussion of Advance Directives occurred with: Not Discussed Does the patient have a Living Will? No Does the patient have Health Care Power of Sausage Stringer? No Full Code 03/14/2013 10:18 PM 03/25/2013 2:39 PM Thi s order reflects the patients wishes and were consensually agreed upon. Question Answer Comments Discussion of Advance Directives occurred with: Not Discussed Does the patient have a Living Will? No Does the patient have Health Care Power of Sausage Stringer? No Healthcare Agents on File Name Relationship Healthcare Agent Relationship Communication Jose HENDRIX Adult Child Health Bean Snapper resentative (appointed verbally by patient or by statute hierarchy) Care Teams Shaper Setter Relationship Specialty Start Date End Date Roslyn Gale DO [address] [facility] [place] [address] PCP - General Family Medicine 11/10/18 documented as of this encounter
--- OUTSIDE RECORDS SUMMARY | 2023-05-18 10:48 | External Medical Summary | Summary of Care ---
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),Crescendo angina [...] Oral Tablet (pLAVix)Indications: Cardiomyopathy, ischemic,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) take 1 tablet by mouth once daily 90 Tablet 3 02/23/2023 Active Metoprolol Succinate ER 50 MG Oral Tablet Extended Release 24 Hour (toPROL XL)Indications:Ather osclerosis of [place] coronary artery of [place] heart with stable angina pectoris (HCC),Cardiomyopathy , [...] systolic, due to CAD 07/13/2020 Atherosclerosis of [place] co ronary artery of [place] heart with stable angina pectoris 11/10/2018 History of cardiac arrest 11/10/2018 History of prostate cancer 04/22/2017 S/P CABG (coronary artery bypass graft) 04/22/20 17 Statin intolerance 10/23/2016 Gastroesophageal reflux disease with esophagitis 2015 HTN, goal below 130/80 2015 BPH without obstruction/lower urinary tract symp toms 08/20/2014 ICD (implantable cardioverter-defibrillator) in place 03/20/2013 Overview: -Cardioverter-defibrillator architecture drafter [employer], model [id number] Fortify, serial number [id number]. -Atrial lead architecture drafter [employer], model 1688TC-52 Tendril SDX, serial number [id number]. -Right ventricular defibrillator lead architecture drafter [employer], model 7122Q-65 Durata, serial number [id number]. Dyslipidemia, goal LDL below 70 03/18/2013 Acquired [...] 12:20 PM EST [facility] [address] [facility] [place] [address] Paul Brandt PA-C [address] [facility] [place] [address] 05/22/2023 8:15 AM EST Office Visit Urology Sherman Coleman [address] [place] [address] [place] [address] Ronny Mackey Jr., MD [address] [place] [address] [place] [address] 07/02/2023 2:30 PM EST Office Visit Cardiology, [facility] [address] [place] [address] Candace Adhikari CRNP [address] [place] [address] 10/04/2023 7:20 AM EDT Office Visit [facility] [address], Lauren [address] [place] [address] Roslyn Gale DO [address] [place] [address] Health Maintenance Due Date Last Done Comments COVID-19 Vaccine (#1) 06/07/1941 Zoster Vaccines (2 of 3) 07/12/2014 05/17/2014 Depression Screening 11/22/2020 11/23/2019 Albumin/Creatinine Ratio 10/06/2023 023, 04/15/2017, 11/10/2014 GFR 10/07/2023 04/08/2023, 10/13, 10/24/2022, Additional history exists CKD HGB USE SMARTSET 75829 04/08/202404/08, 04/08/2023, 10/24/2022, Additional history exists CKD PHOS USE SMARTSET 08855 04/08/202403/14, 01/23/2022, 01/13/2021, Additional history exists TSH [...] Date/Time Associated Diagnosis Comments CARDIOLOGY SCANNED RESULT 04/24/2023 documented in this encounter Results * CARDIOLOGY SCANNED RESULT (04/24/2023) 04/24/2023 No Physician Data Unknown OTHER documented in this encounter Advance Directives [...] the patient have Health Care Power of Sand Mixer? No Code Status History Code Status Date Activated Date Inactivated Comments Full Code 07/27/2014 1:43 PM 07/28/2014 2:00 PM This order reflects the patients wishes and were consensually agreed upon. Question Answer Comments Discussion of Advance Directives occurred with: Not Discussed Does the patient have a Living Will? No Does the patient have Health Care Power of Sand Mixer? No Full Code 07/21/2014 11:34 AM 07/21/2014 10:34 PM Thi s order reflects the patients wishes and were consensually agreed upon. Question Answer Comments Discussion of Advance Directives occurred with: Not Discussed Does the patient have a Living Will? No Does the patient have Health Care Power of Sand Mixer? No Full Code 03/14/2013 10:18 PM 03/25/2013 2:39 PM Thi s order reflects the patients wishes and were consensually agreed upon. Question Answer Comments Discussion of Advance Directives occurred with: Not Discussed Does the patient have a Living Will? No Does the patient have Health Care Power of Sand Mixer? No Healthcare Agents on File Name Relationship Healthcare Agent Relationship Communication Jose [facility]ALINCOL[facility] MEDICAL CENTERBERENICE Adult Child Health Wireworker resentative (appointed verbally by patient or by statute hierarchy) Care Teams Summer Analyst Relationship Specialty Start Date End Date Roslyn Gale DO [address] [facility] [place] [address] PCP - General Family Medicine 11/10/18 documented as of this encounter
--- OUTSIDE RECORDS SUMMARY | 2023-05-18 10:48 | External Medical Summary | Summary of Care ---
Author Name Unknown Organization [facility] Address [address] [place] [address] Phone [phone] Care Team Providers Care Car Rental Agent Name Role Phone Roslyn Gale DO Primary Care Provider +1- [phone] Reason for Visit * Reason Onset Date Comments Test Results 04/12/2023 Encounter Details Date Type Department Care Team (Late st Contact Info) Description 04/12/2023 Telephone Family Practice [address] Lauren Bullock [address] [place] [address] Roslyn Gale DO [address] [facility] [place] [address] Test Results Allergies Active Allergy Reactions Criticality [...] Sublingual (Nitrostat)Indicatio ns:Cardiac arrest (HCC),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),Crescendo angina [...] Oral Tablet (pLAVix)Indications: Cardiomyopathy, ischemic,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) take 1 tablet by mouth once daily 90 Tablet 3 02/23/2023 Active Metoprolol Succinate ER 50 MG Oral Tablet Extended Release 24 Hour (toPROL XL)Indications:Ather osclerosis of [place] 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, model [id number] Fortify, serial number [id number]. -Atrial lead press worker helper [employer], model 1688TC-52 Tendril SDX, serial number [id number]. -Right ventricular defibrillator lead press worker helper [employer], model 7122Q-65 Durata, serial number [id number]. Dyslipidemia, goal LDL below 70 03/18/2013 Acquired [...] encounter Miscellaneous Notes * Telephone Encounter - Roslyn Gale DO - 04/12/2023 2:02 PM EST Please let patient and family know that his liver ultrasound was normal documented in this encounter Plan of Treatment Upcoming Encounters Date Type Department Care Team (Late st Contact Info) Description 04/15/2023 9:00 AM EST Office Visit Family Practice [address] [place] [address] Paul Brandt PA-C [address] [place] [address] 04/24/2023 10:30 AM EST Office Visit Cardiology, [facility] [address] [place] [address] Alexis Danielle, DO [address] [place] [address] 04/26/2023 9:00 AM EST Cardiac Studies Cardiology, [facility] [address] [place] [address] Tessie Pacer Clinic [facility] [address] [place] [address] 05/22/2023 8:15 AM EST Office Visit Urology Sherman Coleman [address] [place] [address] [place] [address] Ronny Mackey Jr., MD [address] [place] [address] [place] [address] 10/04/2023 7:20 AM EDT Office Visit Family Practice [address] Lauren Bullock [address] [place] [address] Roslyn Gale, [address] [place] [address] Health Maintenance Due Date Last Done Comments COVID-19 Vaccine (#1) 06/07/1941 Zoster Vaccines (2 of 3) 07/12/2014 05/17/2014 Depression Screening 11/22/2020 11/23/2019 Albumin/Creatinine Ratio 10/06/2023 023, 04/15/2017, 11/10/2014 GFR 10/07/2023 04/08/2023, 10/13, 10/24/2022, Additional history exists CKD HGB USE SMARTSET 57435 04/08/202404/08, 04/08/2023, 10/24/2022, Additional history exists CKD PHOS USE SMARTSET 21694 04/08/202403/14, 01/23/2022, 01/13/2021, Additional history exists TSH [...] the patient have Health Care Power of Road Sign Installer? No Code Status History Code Status Date Activated Date Inactivated Comments Full Code 07/27/2014 1:43 PM 07/28/2014 2:00 PM This order reflects the patients wishes and were consensually agreed upon. Question Answer Comments Discussion of Advance Directives occurred with: Not Discussed Does the patient have a Living Will? No Does the patient have Health Care Power of Road Sign Installer? No Full Code 07/21/2014 11:34 AM 07/21/2014 10:34 PM Thi s order reflects the patients wishes and were consensually agreed upon. Question Answer Comments Discussion of Advance Directives occurred with: Not Discussed Does the patient have a Living Will? No Does the patient have Health Care Power of Road Sign Installer? No Full Code 03/14/2013 10:18 PM 03/25/2013 2:39 PM Thi s order reflects the patients wishes and were consensually agreed upon. Question Answer Comments Discussion of Advance Directives occurred with: Not Discussed Does the patient have a Living Will? No Does the patient have Health Care Power of Road Sign Installer? No Healthcare Agents on File Name Relationship Healthcare Agent Relationship Communication Jose HENDRIX Adult Child Health Civil Designer resentative (appointed verbally by patient or by statute hierarchy) Care Teams Car Rental Agent Relationship Specialty Start Date End Date Roslyn Gale DO [address] [facility] [place] [address] PCP - General Family Medicine 11/10/18 documented as of this encounter
--- OUTSIDE RECORDS SUMMARY | 2023-05-18 10:49 | External Medical Summary | Summary of Care ---
Author Name Unknown Organization [facility] Address [address] [place] [address] Phone [phone] Care Team Providers Care Paste Mixer Name Role Phone Rsolyn Gale DO Primary Care Provider +1- [phone] Reason for Visit * Reason Onset Date Comments FYI 04/08/2023 Encounter Details Date Type Department Care Team (Late st Contact Info) Description 04/08/2023 Telephone Family Practice [place] Bullock [address] [place] [place] [address] Roslyn Gale DO [address] [place] [address] FYI Allergies Active Allergy Reactions Criticality Noted Date Comments Pantoprazole Hives 01/13/2016 Sucralfate Hives 01/13/2016 documented as of this encounter (statuses as of 04/09/2023) Medications Medication Sig Dispensed Refills Start Date End Date Status ASPIRIN 81 MG PO CHEWIndications:INTE RFACED RESULT Take 1 tablet by mouth daily 32 Tab 11 03/24/2013 Active Nitroglycerin 0.4 MG Sublingual Tablet Sublingual (Nitrostat)Indicatio ns:Cardiac arrest (HCC),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 25 Tablet 3 05/11/2021 Active Additional Information Patient not taking.Reported on 04/03/2023 Amiodarone HCl 200 MG Oral Tablet (Cordarone) take 1 tablet by mouth once daily 90 Tablet 3 04/30/2022 Active Finasteride 5 MG Oral Tablet (Proscar)Indications :BPH [...] at bedtime. 90 Capsule 3 10/19/2022 Active Additional Information Patient not taking.Reported on 04/03/2023 Torsemide 10 MG Oral Tablet (Demadex) Take [...] Oral Tablet (pLAVix)Indications: Cardiomyopathy, ischemic,Atheroscler osis of [place] coronary artery of [place] heart with stable angina pectoris (HCC) take 1 tablet by mouth once daily 90 Tablet 3 02/23/2023 Active Levothyroxine Sodium 75 MCG Oral Tablet (Levoxyl)Indications :Acquired hypothyroidism take 1 tablet by mouth every morning AT LEAST 30 MINUTES PRIOR TO BREAKFAST/OTHER MEDS 90 Tablet 3 02/23/2023 Active Metoprolol Succinate ER 50 MG Oral Tablet Extended Release 24 Hour (toPROL XL)Indications:Ather osclerosis of [place] coronary artery of [place] heart with stable angina pectoris (HCC),Cardiomyopathy , ischemic take 1 tablet by mouth twice a day 180 Tablet 2 03/15/2023 Active Polyethylene Glycol 3350 17 GM/SCOOP Oral Powder (Miralax) Take 17 g by mouth in the morning. 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 stage 3 chronic kidney disease 07/13/2021 VF (ventricular fibrillation) 05/11/2021 S/P drug eluting coronary stent placement 2020 Heart failure, systolic, due to CAD 07/13/2020 Atherosclerosis of [place] co ronary artery of [place] heart with stable angina pectoris 11/10/2018 History of cardiac arrest 11/10/2018 History of prostate cancer 04/22/2017 S/P CABG (coronary artery bypass graft) 04/22/20 17 Statin intolerance 10/23/2016 Gastroesophageal reflux disease with esophagitis 2015 HTN, goal below 130/80 2015 BPH without obstruction/lower urinary tract symp toms 08/20/2014 ICD (implantable cardioverter-defibrillator) in place 03/20/2013 Overview: -Cardioverter-defibrillator commercial coordinator [employer], model [id number] Fortify, serial number [id number]. -Atrial lead commercial coordinator [employer], model 1688TC-52 Tendril SDX, serial number [id number]. -Right ventricular defibrillator lead commercial coordinator [employer], model 7122Q-65 Durata, serial number [id number]. Dyslipidemia, goal LDL below 70 03/18/2013 Acquired hypothyroidism 03/18/2013 Cardiomyopathy, ischemic 03/15/2013 documented as of this encounter (statuses as of 04/09/2023) Resolved Problems Problem Noted Date Diagnosed Date [...] as of this encounter (statuses as of 04/09/2023) Immunizations Name Administration Dates Next Due Pneumococcal [...] encounter Miscellaneous Notes * Telephone Encounter - Susan Wade LPN - 04/09/2023 10:38 AM EST Please assist with scheduling * Telephone Encounter - Juana Mccall MD - 04/09/2023 10:[address] from ED visit Nasal fracture noted Some sinus mucosal thickening But there was not of some chronic and senescent intracranial findings with suggestions for MRI if concern persists Would recommend ED follow up to review this with patient and if MRI warranted * Telephone Encounter - Patricia Brandt PA-C - 04/08/2023 12:25 PM EST I saw and evaluated the patient in the office. There is a large laceration across the nasal bridge with visible nasal bone. Active bleeding noted. There is also a small laceration on the left fourth finger. Laceration on the nasal bridge was dressed with a pressure dressing and ice applied. Cervical spine was non-tender to palpation. No visible deformity of the eyes, neck noted. Recommended pt go to the ER by ambulance; pt and his son declined; son will drive him to [facility] ER. Nursing called ER to give report and faxed face sheet over. Jose Hendrix Sr. refuses treatment and/or wishes to leave the office against medical advice. 1. The circumstances surrounding the care: fall in the parking lot, sustained a large open wound tothe face with visible bone 2. The patient's mental status: alert and oriented x 3, son was also present and alert, oriented x 3 3. The exact care refused: ambulance transfer to hospital for facial trauma 4. I have discussed with the nature of the patient's condition; the potential risks and consequences of the patient/parent refusing the care or leaving the office against medical advice; any factual scenarios that prompt an immediate return to the emergency department. 5. Follow up instructions for the patient: No follow-ups on file. Patricia Brandt PA-C 04/08/2023 12:27 PM * Telephone Encounter - Sheyla Richardson LPN - 04/08/2023 11:26 AM EST Pt. Fell outside of facility after having labs done. Pt. Was reaching down for his handkerchief with out bending at knees and fell directly on face. documented in this encounter Plan of Treatment Upcoming Encounters Date Type Department Care Team (Late st Contact Info) Description 04/24/2023 10:30 AM EST Office Visit Cardiology, [address] [place] [address] Alexis Danielle DO [address] [place] [address] 04/26/2023 9:00 AM EST Cardiac Studies Cardiology, [facility] [address] [place] [address] [place], [facility] [address] [place] [address] 05/22/2023 8:15 AM EST Office Visit Urology [place] [address] [place] [address] [place] [address] Ronny Mackey Jr., MD [address] [place] [address] [place] [address] 10/04/2023 7:20 AM EDT Office Visit Family Practice [place] Bull[place] [address] [place] [address] Roslyn Gale, [address] [place] [address] Health Maintenance Due Date Last Done Comments COVID-19 Vaccine (#1) 06/07/1941 Zoster Vaccines (2 of 3) 07/12/2014 05/17/2014 Depression Screening 11/22/2020 11/23/2019 Albumin/Creatinine Ratio 10/06/2023 023, 04/15/2017, 11/10/2014 GFR 10/07/2023 04/08/2023, 10/13, 10/24/2022, Additional history exists CKD HGB USE SMARTSET 55314 04/08/202404/08, 04/08/2023, 10/24/2022, Additional history exists CKD PHOS USE SMARTSET 89732 04/08/202403/14, 01/23/2022, 01/13/2021, Additional history exists TSH [...] the patient have Health Care Power of Janitorial Cleaner? No Code Status History Code Status Date Activated Date Inactivated Comments Full Code 07/27/2014 1:43 PM 07/28/2014 2:00 PM This order reflects the patients wishes and were consensually agreed upon. Question Answer Comments Discussion of Advance Directives occurred with: Not Discussed Does the patient have a Living Will? No Does the patient have Health Care Power of Janitorial Cleaner? No Full Code 07/21/2014 11:34 AM 07/21/2014 10:34 PM Thi s order reflects the patients wishes and were consensually agreed upon. Question Answer Comments Discussion of Advance Directives occurred with: Not Discussed Does the patient have a Living Will? No Does the patient have Health Care Power of Janitorial Cleaner? No Full Code 03/14/2013 10:18 PM 03/25/2013 2:39 PM Thi s order reflects the patients wishes and were consensually agreed upon. Question Answer Comments Discussion of Advance Directives occurred with: Not Discussed Does the patient have a Living Will? No Does the patient have Health Care Power of Janitorial Cleaner? No Healthcare Agents on File Name Relationship Healthcare Agent Relationship Communication Jose HENDRIX Adult Child Health Vest Front Presser resentative (appointed verbally by patient or by statute hierarchy) Care Teams Paste Mixer Relationship Specialty Start Date End Date Roslyn Gale DO [address] [facility] [place] [address] PCP - General Family Medicine 11/10/18 documented as of this encounter
--- OUTSIDE RECORDS SUMMARY | 2023-05-18 10:49 | External Medical Summary | Summary of Care ---
Author Name Unknown Organization [facility] Address [address] [place] [address] Phone [phone] Care Team Providers Care Buyer Renter Name Role Phone Roslyn Gale DO Primary Care Provider +1- [phone] Reason for Visit * Reason Onset Date Comments FYI 04/08/2023 Encounter Details Date Type Department Care Team (Late st Contact Info) Description 04/08/2023 Telephone Family Practice [place] Bullock [address] [place] [address] [place] [address] Roslyn Gale DO [address] [place] [address] [place] [address] FYI Allergies Active Allergy Reactions Criticality Noted Date Comments Pantoprazole Hives 01/13/2016 Sucralfate Hives 01/13/2016 documented as of this encounter (statuses as of 04/08/2023) Medications Medication Sig Dispensed Refills Start Date [...] as of this encounter (statuses as of 04/08/2023) Active Problems Problem Noted Date Diagnosed Date [...] (implantable cardioverter-defibrillator) in place 03/20/2013 Overview: -Cardioverter-defibrillator senior interactive producer [employer], model [id number] Fortify, serial number [id number]. -Atrial lead senior interactive producer [employer], model 1688TC-52 Tendril SDX, serial number [id number]. -Right ventricular defibrillator lead senior interactive producer [employer], model 7122Q-65 Durata, serial number [id number]. Dyslipidemia, goal LDL below 70 03/18/2013 Acquired hypothyroidism 03/18/2013 Cardiomyopathy, ischemic 03/15/2013 documented as of this encounter (statuses as of 04/08/2023) Resolved Problems Problem Noted Date Diagnosed Date [...] as of this encounter (statuses as of 04/08/2023) Immunizations Name Administration Dates Next Due Pneumococcal [...] IM 04/22/2017 TDAP (age 11 and older)(Adacel) 04/12/2014 Varicella Zoster Vaccine (Adult) 05/17/2014 documented as [...] encounter Miscellaneous Notes * Telephone Encounter - Patricia Brandt PA-C [...] son declined; son will drive him to [facility] ER. Nursing called ER to give report [...] 04/24/2023 10:30 AM EST Office Visit Cardiology, [facility] [address] [facility] [place] [address] Alexis Danielle, [address] [facility] [place] [address] 04/26/2023 9:00 AM EST Cardiac Studies Cardiology, [facility] [address] [facility] [place] [address] [facility] [address] [facility] [place] [address] 05/22/2023 8:15 AM EST Office Visit Urology [place] [address] [place] [address] [place] [address] Ronny Mackey Jr., MD [address] [place] [address] [place] [address] 10/04/2023 7:20 AM EDT Office Visit Family Practice [address], [place] [address] [place] [address] Roslyn Gale DO [address] [place] [address] Health Maintenance Due Date Last Done Comments COVID-19 Vaccine (#1) 06/07/1941 Zoster Vaccines (2 of 3) 07/12/2014 05/17/2014 Depression Screening 11/22/2020 11/23/2019 CKD PHOS USE SMARTSET 61740 01/23/202301/11, 01/13/2021, 03/04/2019, Additional history exists GFR 05/11/2023 11/09/2022, 10/11, 10/05/2022, Additional history exists Albumin/Creatinine Ratio 10/06/2023 023, 04/15/2017, 11/10/2014 CKD HGB USE SMARTSET 21865 10/25/202310/24, 10/24/2022, 10/05/2022, Additional history exists TSH 10/25/2023 10/24/2022, 10/11, 10/05/2022, Additional history exists DTaP,Tdap,and Td Vaccines (2 - Td or Tdap) 04/12/2024 04/12/2014 Pneumococcal Vaccine: 65+ Years Completed 2015, [...] the patient have Health Care Power of Brand Executive? No Code Status History Code Status Date Activated Date Inactivated Comments Full Code 07/27/2014 1:43 PM 07/28/2014 2:00 PM This order reflects the patients wishes and were consensually agreed upon. Question Answer Comments Discussion of Advance Directives occurred with: Not Discussed Does the patient have a Living Will? No Does the patient have Health Care Power of Brand Executive? No Full Code 07/21/2014 11:34 AM 07/21/2014 10:34 PM Thi s order reflects the patients wishes and were consensually agreed upon. Question Answer Comments Discussion of Advance Directives occurred with: Not Discussed Does the patient have a Living Will? No Does the patient have Health Care Power of Brand Executive? No Full Code 03/14/2013 10:18 PM 03/25/2013 2:39 PM Thi s order reflects the patients wishes and were consensually agreed upon. Question Answer Comments Discussion of Advance Directives occurred with: Not Discussed Does the patient have a Living Will? No Does the patient have Health Care Power of Brand Executive? No Healthcare Agents on File Name Relationship Healthcare Agent Relationship Communication Jose HENDRIX Adult Child Health Concrete Panel Installer resentative (appointed verbally by patient or by statute hierarchy) Care Teams Buyer Renter Relationship Specialty Start Date End Date Roslyn Gale DO [address] [facility] [place] [address] PCP - General Family Medicine 11/10/18 documented as of this encounter
--- OUTSIDE RECORDS SUMMARY | 2023-05-18 10:49 | External Medical Summary | Summary of Care ---
Author Name Unknown Organization [facility] Address [address] [place] [address] Phone [phone] Care Team Providers Care Theatre Program Director Name Role Phone Roslyn Gale DO Primary Care Provider +1- [phone] Reason for Visit * Reason Onset Date Comments FYI 04/08/2023 ER follow up Encounter Details Date Type Department Care Team (Late st Contact Info) Description 04/08/2023 Telephone Family Practice [place] Bullock [address] [place] [address] Roslyn Gale DO [address] [facility] [place] [address] FYI (ER follow up) Allergies Active Allergy Reactions Criticality Noted Date Comments Pantoprazole Hives 01/13/2016 Sucralfate Hives 01/13/2016 documented as of this encounter (statuses as of 04/09/2023) Medications Medication Sig Dispensed Refills Start Date End Date Status ASPIRIN 81 MG PO CHEWIndications:INTE RFACED RESULT Take 1 tablet by mouth daily 32 Tab 11 03/24/2013 Active Nitroglycerin 0.4 MG Sublingual Tablet Sublingual (Nitrostat)Indicatio ns:Cardiac arrest (HCC),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),Crescendo angina [...] Oral Tablet (pLAVix)Indications: Cardiomyopathy, ischemic,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) take 1 tablet by mouth once daily 90 Tablet 3 02/23/2023 Active Levothyroxine Sodium 75 MCG Oral Tablet (Levoxyl)Indications :Acquired hypothyroidism take 1 tablet by mouth every morning AT LEAST 30 MINUTES PRIOR TO BREAKFAST/OTHER MEDS 90 Tablet 3 02/23/2023 Active Metoprolol Succinate ER 50 MG Oral Tablet Extended Release 24 Hour (toPROL XL)Indications:Ather osclerosis of [place] coronary artery of [place] heart with stable angina pectoris (HCC),Cardiomyopathy , [...] systolic, due to CAD 07/13/2020 Atherosclerosis of [place] co ronary artery of [place] heart with stable angina pectoris 11/10/2018 History of cardiac arrest 11/10/2018 History of prostate cancer 04/22/2017 S/P CABG (coronary artery bypass graft) 04/22/20 17 Statin intolerance 10/23/2016 Gastroesophageal reflux disease with esophagitis 2015 HTN, goal below 130/80 2015 BPH without obstruction/lower urinary tract symp toms 08/20/2014 ICD (implantable cardioverter-defibrillator) in place 03/20/2013 Overview: -Cardioverter-defibrillator sandblaster paint sprayer [employer], model [id number] Fortify, serial number [id number]. -Atrial lead sandblaster paint sprayer [employer], model 1688TC-52 Tendril SDX, serial number [id number]. -Right ventricular defibrillator lead sandblaster paint sprayer [employer], model 7122Q-65 Durata, serial number [id number]. Dyslipidemia, goal LDL below 70 03/18/2013 Acquired [...] encounter Miscellaneous Notes * Telephone Encounter - Arelis Mohamud OSA - 04/09/2023 12:18 PM EST Spoke with pt. Appt scheduled. * Telephone Encounter - Susan Wade LPN [...] son declined; son will drive him to [facility] ER. Nursing called ER to [...] Description 04/15/2023 9:00 AM EST Office Visit [facility] [address] [place] [address] Paul Brandt PA-C [address] [place] [address] 04/24/2023 10:30 AM EST Office Visit Cardiology, [facility] [address] [place] [address] Alexis Danielle, [address] [place] [address] 04/26/2023 9:00 AM EST Cardiac Studies Cardiology, [facility] [address] [place] [address] [address] [facility] [address] [place] [address] 05/22/2023 8:15 AM EST Office Visit Urology [place] [address] [place] [address] [place] [address] Ronny Mackey Jr., MD [address] [place] [address] [place] [address] 10/04/2023 7:20 AM EDT Office Visit [facility] [place] Bullock [address] [place] [address] Roslyn Gale DO [address] [place] [address] Health Maintenance Due Date Last Done Comments COVID-19 Vaccine (#1) 06/07/1941 Zoster Vaccines (2 of 3) 07/12/2014 05/17/2014 Depression Screening 11/22/2020 11/23/2019 Albumin/Creatinine Ratio 10/06/2023 023, 04/15/2017, 11/10/2014 GFR 10/07/2023 04/08/2023, 10/13, 10/24/2022, Additional history exists CKD HGB USE SMARTSET 83162 04/08/202404/08, 04/08/2023, 10/24/2022, Additional history exists CKD PHOS USE SMARTSET 43256 04/08/202403/14, 01/23/2022, 01/13/2021, Additional history exists TSH [...] the patient have Health Care Power of Merchandise Distributor? No Code Status History Code Status Date Activated Date Inactivated Comments Full Code 07/27/2014 1:43 PM 07/28/2014 2:00 PM This order reflects the patients wishes and were consensually agreed upon. Question Answer Comments Discussion of Advance Directives occurred with: Not Discussed Does the patient have a Living Will? No Does the patient have Health Care Power of Merchandise Distributor? No Full Code 07/21/2014 11:34 AM 07/21/2014 10:34 PM Thi s order reflects the patients wishes and were consensually agreed upon. Question Answer Comments Discussion of Advance Directives occurred with: Not Discussed Does the patient have a Living Will? No Does the patient have Health Care Power of Merchandise Distributor? No Full Code 03/14/2013 10:18 PM 03/25/2013 2:39 PM Thi s order reflects the patients wishes and were consensually agreed upon. Question Answer Comments Discussion of Advance Directives occurred with: Not Discussed Does the patient have a Living Will? No Does the patient have Health Care Power of Merchandise Distributor? No Healthcare Agents on File Name Relationship Healthcare Agent Relationship Communication Jose HENDRIX Adult Child Health Garbage Stoker resentative (appointed verbally by patient or by statute hierarchy) Care Teams Theatre Program Director Relationship Specialty Start Date End Date Roslyn Gale DO [address] [facility] [place] [address] PCP - General Family Medicine 11/10/18 documented as of this encounter
--- OUTSIDE RECORDS SUMMARY | 2023-05-18 10:49 | External Medical Summary | Summary of Care ---
Author Name Unknown Organization [facility] Address [address] [place] [address] Phone [phone] Care Team Providers Care Government Documents Librarian Name Role Phone Roslyn Gale DO Primary Care Provider +1- [phone] Reason for Visit * Reason Onset Date Comments Abnormal Test Results 04/10/202304/10 Encounter Details Date Type Department Care Team (Late st Contact Info) Description 04/10[facility] [place] [address] Roslyn Gale DO [address] [place] [address] Abnormal Test Results (04/10) Allergies Active Allergy Reactions Criticality Noted Date Comments Pantoprazole Hives 01/13/2016 Sucralfate Hives 01/13/2016 documented as of this encounter (statuses as of 04/10/2023) Medications Medication Sig Dispensed Refills Start Date End Date Status ASPIRIN 81 MG PO CHEWIndications:INT ERFACED RESULT Take 1 tablet by mouth daily 32 Tab 11 3 Active Nitroglycerin 0.4 MG Sublingual Tablet Sublingual (Nitrostat)Indicati ons:Cardiac arrest (HCC),Atheroscleros [place] of [place] 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 25 Tablet 3 1 Active Additional Information Patient not taking.Reported on 04/03/2023 Amiodarone HCl 200 MG Oral Tablet (Cordarone) take 1 tablet by mouth once daily 90 Tablet 3 2 Active Finasteride 5 MG Oral Tablet (Proscar)Indication s:BPH with obstruction/lower urinary tract symptoms,Prostate cancer (HCC) Take 1 Tablet by mouth in the morning. 90 Tablet 3 3 Active Rosuvastatin Calcium 5 MG Oral Tablet (Crestor)Indication s:Dyslipidemia, goal LDL below 70 Take 1 Tablet by mouth in the morning. 90 Tablet 3 3 Active Docusate Sodium 100 MG Oral Capsule (Colace)Indications :Constipation, unspecified constipation type Take 1 Capsule by mouth every night at bedtime. 90 Capsule 3 3 Active Additional Information Patient not taking.Reported on 04/03/2023 Torsemide 10 MG Oral Tablet (Demadex) Take 0.5 Tablets by mouth in the morning. 90 Tablet 3 3 Active Isosorbide Mononitrate ER 30 MG Oral Tablet Extended Release 24 Hour (Imdur)Indications: Heart failure, systolic, due to CAD Take 1 Tablet by mouth in the morning. 90 Tablet 3 3 Active Lisinopril 2.5 MG Oral Tablet (Prinivil) Take 1 Tablet by mouth in the morning. 90 Tablet 3 3 Active Clopidogrel Bisulfate 75 MG Oral Tablet (pLAVix)Indications :Cardiomyopathy, ischemic,Atheroscle rosis of [place] coronary artery of [place] heart with stable angina pectoris (HCC) take 1 tablet by mouth once daily 90 Tablet 3 3 Active Metoprolol Succinate ER 50 MG Oral Tablet Extended Release 24 Hour (toPROL XL)Indications:Athe rosclerosis of [place] coronary artery of [place] heart with stable angina pectoris (HCC),Cardiomyopath y, ischemic take 1 tablet by mouth twice a day 180 Tablet 2 3 Active Polyethylene Glycol 3350 17 GM/SCOOP Oral Powder (Miralax) Take 17 g by mouth in the morning. 850 g 5 3 Active Additional Information Patient not taking.Reported on 04/03/2023 Levothyroxine Sodium 100 MCG Oral Tablet (Synthroid)Indicati ons:Acquired hypothyroidism Take 1 Tablet by mouth in the morning. (at least 30 min prior to breakfast or other meds). 90 Tablet 1 3 Active Potassium Chloride ER 10 MEQ Oral Capsule Extended ReleaseIndications: Hypokalemia Take 1 Capsule by mouth in the morning and 1 Capsule before bedtime. 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 stage 3 chronic kidney disease 07/13/2021 VF (ventricular fibrillation) 05/11/2021 S/P drug eluting coronary stent placement 2020 Heart failure, systolic, due to CAD 07/13/2020 Atherosclerosis of [place] co ronary artery of [place] heart with stable angina pectoris 11/10/2018 History of cardiac arrest 11/10/2018 History of prostate cancer 04/22/2017 S/P CABG (coronary artery bypass graft) 04/22/20 17 Statin intolerance 10/23/2016 Gastroesophageal reflux disease with esophagitis 2015 HTN, goal below 130/80 2015 BPH without obstruction/lower urinary tract symp toms 08/20/2014 ICD (implantable cardioverter-defibrillator) in place 03/20/2013 Overview: -Cardioverter-defibrillator high school principal [employer], model [id number] Fortify, serial number [id number]. -Atrial lead high school principal [employer], model 1688TC-52 Tendril SDX, serial number [id number]. -Right ventricular defibrillator lead high school principal [employer], model 7122Q-65 Durata, serial number [id number]. Dyslipidemia, goal LDL below 70 03/18/2013 Acquired hypothyroidism 03/18/2013 Cardiomyopathy, ischemic 03/15/2013 documented as of this encounter (statuses as of 04/10/2023) Resolved Problems Problem Noted Date Diagnosed Date [...] as of this encounter (statuses as of 04/10/2023) Immunizations Name Administration Dates Next Due Pneumococcal [...] Telephone Encounter - Leticia Murguia LPN - 04/10/2023 9:19 AM EST Left message for pt to return call for update * Telephone Encounter - Sarah Mendoza OSA - 04/10/2023 8:44 AM EST Please send encounter to [id number] when pt is aware of US order so appt can be nicky'd. * Telephone Encounter - Roslyn Gale DO - 04/10/2023 8:30 AM EST Labs reviewed Thyroid levels are not normal Recommend starting low dose of synthroid Will take one tablet daily in morning Potassium levels are also low, will send in potassium supplement Will also check a ultrasound of his liver xochitl Liver test are mildly elevated documented in this encounter Plan of Treatment Upcoming Encounters Date Type Department Care Team (Late st Contact Info) Description 04/15/2023 9:00 AM EST Office Visit Family [facility] [place] [address] [place] [address] Paul Brandt PA-C [address] [place] [address] 04/24/2023 10:30 AM EST Office Visit Cardiology, [facility] [address] [place] [address] Alexis Danielle DO [address] [place] [address] 04/26/2023 9:00 AM EST Cardiac Studies Cardiology, [facility] [address] [place] [address] Katherine Kurtz [facility] [address] [place] [address] 05/22/2023 8:15 AM EST Office Visit Urology [place] [address] [place] [address] [place] [address] Ronny Mackey Jr., MD [address] [place] [address] [place] [address] 10/04/2023 7:20 AM EDT Office Visit [facility] [address], [place] [address] [place] [id number] Roslyn Gale DO [address] [place] [address] Scheduled Orders Name Type Priority Associated Diagnoses Orde r Schedule US ABDOMEN LIMITED Medical Imaging STAT Elevated LFTs Expected: 04/10/2023, Expires: 05/10/2024 TSH WITH FREE T4 IF INDICATED Lab Routine Acquired hypothyroidism Expected: 05/10/2023 (Approximate), Expires: 04/09/2024 COMPREHENSIVE METABOLIC PANEL Lab Routine Hypokalemia Elevated LFTs Expected: 05/10/2023 (Approximate), Expires: 04/09/2024 Health Maintenance Due Date Last Done Comments COVID-19 Vaccine (#1) 06/07/1941 Zoster Vaccines (2 of 3) 07/12/2014 05/17/2014 Depression Screening 11/22/2020 11/23/2019 Albumin/Creatinine Ratio 10/06/2023 023, 04/15/2017, 11/10/2014 GFR 10/07/2023 04/08/2023, 10/13, 10/24/2022, Additional history exists CKD HGB USE SMARTSET 99303 04/08/202404/08, 04/08/2023, 10/24/2022, Additional history exists CKD PHOS USE SMARTSET 68590 04/08/202403/14, 01/23/2022, 01/13/2021, Additional history exists TSH [...] as of this encounter Visit Diagnoses Diagnosis Acquired hypothyroidism- Primary Unspecified hypothyroidism Hypokalemia Hypopotassemia Elevated LFTs Other abnormal blood chemistry documented in this encounter Advance Directives Latest [...] the patient have Health Care Power of Environmental Attorney? No Code Status History Code Status Date Activated Date Inactivated Comments Full Code 07/27/2014 1:43 PM 07/28/2014 2:00 PM This order reflects the patients wishes and were consensually agreed upon. Question Answer Comments Discussion of Advance Directives occurred with: Not Discussed Does the patient have a Living Will? No Does the patient have Health Care Power of Environmental Attorney? No Full Code 07/21/2014 11:34 AM 07/21/2014 10:34 PM Thi s order reflects the patients wishes and were consensually agreed upon. Question Answer Comments Discussion of Advance Directives occurred with: Not Discussed Does the patient have a Living Will? No Does the patient have Health Care Power of Environmental Attorney? No Full Code 03/14/2013 10:18 PM 03/25/2013 2:39 PM Thi s order reflects the patients wishes and were consensually agreed upon. Question Answer Comments Discussion of Advance Directives occurred with: Not Discussed Does the patient have a Living Will? No Does the patient have Health Care Power of Environmental Attorney? No Healthcare Agents on File Name Relationship Healthcare Agent Relationship Communication Jose HENDRIX Adult Child Health Feather Shaper resentative (appointed verbally by patient or by statute hierarchy) Care Teams Government Documents Librarian Relationship Specialty Start Date End Date Roslyn Gale DO [address] [facility] [place] [address] PCP - General Family Medicine 11/10/18 documented as of this encounter
--- OUTSIDE RECORDS SUMMARY | 2023-05-18 10:49 | External Medical Summary | Summary of Care ---
Author Name Unknown Organization [facility] Address [address] [place] [address] Phone [phone] Care Team Providers Care Electric Meter Reader Name Role Phone Roslyn Gale DO Primary Care Provider +1- [phone] Reason for Referral * Evaluate & Treat - Unlimited Visits (Within 3 days (urgent)) - Authorized Specialty Diagnoses / Procedures Referred By Contac sissy Referred To Contact Dietitian / Nutrition Services Diagnoses Heart failure, systolic, due to CAD Cardiomyopathy, ischemic Protein-calorie malnutrition (HCC) Roslyn Gale DO [address] [facility] [place] [address] Referral ID Status Reason Start Date Expiration Date Visits Requested Visits Authorized [id number] Authorized Specialty Services Required 3 999 999 [...] ischemic Protein-calorie malnutrition (HCC) Roslyn Gale DO [address] [place] [address] Referral ID Status Reason Start Date Expiration Date Visits Requested Visits Authorized [id number] Authorized Specialty Services Required 3 999 999 Question Answer Referral Priority Within 3 days (urgent) Where should this appointment be scheduled? [facility] Reason for Referral: Heart Failure Palliative Medicine To Address: Goals of Care Is this referral for [facility] service? ([facility] Insurance Only) No Comments CHF patient, discussion on goals of care intermediate Reason for Visit * Reason Onset Date Comments case management 04/11/2023 Referral 04/11/2023 Palliative/nutri tion Encounter Details Date Type Department Care Team (Latest Contact Info) Description 04/11/2023 Exhauster Telephone Care Coordination and Integration [address] [place] [address] Martha Peters RN [address] [place] [address] case management; Referral (Palliative/nutr... Allergies Active Allergy Reactions Criticality Noted Date Comments Pantoprazole Hives 01/13/2016 Sucralfate Hives 01/13/2016 documented as of this encounter (statuses as of 04/11/2023) Medications Medication Sig Dispensed Refills Start Date End Date Status ASPIRIN 81 MG PO CHEWIndications:INTE RFACED RESULT Take 1 tablet by mouth daily 32 Tab 11 03/24/2013 Active Nitroglycerin 0.4 MG Sublingual Tablet Sublingual (Nitrostat)Indicatio ns:Cardiac arrest (HCC),Atherosclerosi s of [place] coronary artery of [place] heart with stable angina pectoris (HCC),Crescendo angina [...] Oral Tablet (pLAVix)Indications: Cardiomyopathy, ischemic,Atheroscler osis of [place] coronary artery of [place] heart with stable angina pectoris (HCC) take 1 tablet by mouth once daily 90 Tablet 3 02/23/2023 Active Metoprolol Succinate ER 50 MG Oral Tablet Extended Release 24 Hour (toPROL XL)Indications:Ather osclerosis of [place] coronary artery of [place] heart with stable angina pectoris (HCC),Cardiomyopathy , [...] as of this encounter (statuses as of 04/11/2023) Active Problems Problem Noted Date Diagnosed Date Osteoarthritis, knee 03/28/2023 Protein-calorie malnutrition 10/19/2022 VT (ventricular tachycardia) 07/13/2021 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 stage 3 chronic kidney disease 07/13/2021 VF (ventricular fibrillation) 05/11/2021 S/P drug eluting coronary stent placement 2020 Heart failure, systolic, due to CAD 07/13/2020 Atherosclerosis of [place] co ronary artery of [place] heart with stable angina pectoris 11/10/2018 History of cardiac arrest 11/10/2018 History of prostate cancer 04/22/2017 S/P CABG (coronary artery bypass graft) 04/22/20 17 Statin intolerance 10/23/2016 Gastroesophageal reflux disease with esophagitis 2015 HTN, goal below 130/80 2015 BPH without obstruction/lower urinary tract symp toms 08/20/2014 ICD (implantable cardioverter-defibrillator) in place 03/20/2013 Overview: -Cardioverter-defibrillator senior system operator [employer], model [id number] Fortify, serial number [id number]. -Atrial lead senior system operator [employer], model 1688TC-52 Tendril SDX, serial number [id number]. -Right ventricular defibrillator lead senior system operator [employer], model 7122Q-65 Durata, serial number [id number]. Dyslipidemia, goal LDL below 70 03/18/2013 Acquired hypothyroidism 03/18/2013 Cardiomyopathy, ischemic 03/15/2013 documented as of this encounter (statuses as of 04/11/2023) Resolved Problems Problem Noted Date Diagnosed Date [...] as of this encounter (statuses as of 04/11/2023) Immunizations Name Administration Dates Next Due Pneumococcal [...] US of liver is tomorrow.. Called [facility], cinder worker will be out to look at in home care. Thanks! Martha Peters RN documented in this encounter Plan of Treatment Upcoming Encounters Date Type Department Care Team (Late st Contact Info) Description 04/12/2023 12:30 PM EST Imaging Radiology [address] [place] [address] 04/15/2023 9:00 AM EST Office Visit [facility] [place] [address] [place] [address] Paul Brandt PA-C [address] [place] [address] 04/24/2023 10:30 AM EST Office Visit Cardiology, [facility] [address] [place] [address] Alexis Danielle, DO [address] [place] [address] 04/26/2023 9:00 AM EST Cardiac Studies Cardiology, [facility] [address] [facility] [place] [address] [facility] [address] [place] [address] 05/22/2023 8:15 AM EST Office Visit Urology [facility] [address] [place] [address] [place] [address] Ronny Mackey Jr., MD [address] [place] [address] [place] [address] 10/04/2023 7:20 AM EDT Office Visit [facility] [place], [place] [address] [place] [address] Roslyn Gale DO [address] [place] [address] Scheduled Referrals Name Type Priority Associated Diagnoses [...] Additional history exists CKD HGB USE SMARTSET 10543 04/08/202404/08, 04/08/2023, 10/24/2022, Additional history exists CKD PHOS USE SMARTSET 35824 04/08/202403/14, 01/23/2022, 01/13/2021, Additional history exists TSH [...] the patient have Health Care Power of Vocational Education Teacher? No Code Status History Code Status Date Activated Date Inactivated Comments Full Code 07/27/2014 1:43 PM 07/28/2014 2:00 PM This order reflects the patients wishes and were consensually agreed upon. Question Answer Comments Discussion of Advance Directives occurred with: Not Discussed Does the patient have a Living Will? No Does the patient have Health Care Power of Vocational Education Teacher? No Full Code 07/21/2014 11:34 AM 07/21/2014 10:34 PM Thi s order reflects the patients wishes and were consensually agreed upon. Question Answer Comments Discussion of Advance Directives occurred with: Not Discussed Does the patient have a Living Will? No Does the patient have Health Care Power of Vocational Education Teacher? No Full Code 03/14/2013 10:18 PM 03/25/2013 2:39 PM Thi s order reflects the patients wishes and were consensually agreed upon. Question Answer Comments Discussion of Advance Directives occurred with: Not Discussed Does the patient have a Living Will? No Does the patient have Health Care Power of Vocational Education Teacher? No Healthcare Agents on File Name Relationship Healthcare Agent Relationship Communication Jose HENDRIX Adult Child Health Clipper Operator resentative (appointed verbally by patient or by statute hierarchy) Care Teams Electric Meter Reader Relationship Specialty Start Date End Date Roslyn Gale DO [address] [facility] [place] [address] PCP - General Family Medicine 11/10/18 documented as of this encounter
--- OUTSIDE RECORDS SUMMARY | 2023-05-18 10:49 | External Medical Summary | Summary of Care ---
Author Name Unknown Organization [facility] Address [address] [place] [address] Phone [phone] Care Team Providers Care Road Driver Name Role Phone Roslyn Gale DO Primary Care Provider +1- [phone] Reason for Referral * Evaluate & Treat - Unlimited Visits (Within 3 days (urgent)) - Authorized Specialty Diagnoses / Procedures Referred By Contac sissy Referred To Contact Dietitian / Nutrition Services Diagnoses Heart failure, systolic, due to CAD Cardiomyopathy, ischemic Protein-calorie malnutrition (HCC) Roslyn Gale DO [address] [facility] [place] [address] Referral ID Status Reason Start Date Expiration Date Visits Requested Visits Authorized [id number] Authorized Specialty Services Required 3 [phone] [...] ischemic Protein-calorie malnutrition (HCC) Roslyn Gale DO [address] [place] [address] Referral ID Status Reason Start Date Expiration Date Visits Requested Visits Authorized [id number] Authorized Specialty Services Required 3 999 999 Question Answer Referral Priority Within 3 days (urgent) Where should this appointment be scheduled? [facility] Reason for Referral: Heart Failure Palliative Medicine To Address: Goals of Care Is this referral for [facility]? ([facility] Insurance Only) No Comments CHF patient, discussion on goals of care retirement Reason for Visit * Reason Onset Date Comments case management 04/11/2023 Referral 04/11/2023 Palliative/nutri tion Encounter Details Date Type Department Care Team (Latest Contact Info) Description 04/11/2023 [place] Telephone Care Coordination and Integration [address] [place] [address] Martha Peters RN [address] [place] [address] case management; Referral (Palliative/nutr... 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) take 1 tablet by mouth once daily 90 Tablet 3 02/23/2023 Active Metoprolol Succinate ER 50 MG Oral Tablet Extended Release 24 Hour (toPROL XL)Indications:Ather osclerosis of [place] coronary artery of [place] heart with stable angina pectoris (HCC),Cardiomyopathy , [...] systolic, due to CAD 07/13/2020 Atherosclerosis of [place] co ronary artery of [place] heart with stable angina pectoris 11/10/2018 History of cardiac arrest 11/10/2018 History of prostate cancer 04/22/2017 S/P CABG (coronary artery bypass graft) 04/22/20 17 Statin intolerance 10/23/2016 Gastroesophageal reflux disease with esophagitis 2015 HTN, goal below 130/80 2015 BPH without obstruction/lower urinary tract symp toms 08/20/2014 ICD (implantable cardioverter-defibrillator) in place 03/20/2013 Overview: -Cardioverter-defibrillator needle board repairer [employer], model [id number] Fortify, serial number [id number]. -Atrial lead needle board repairer [employer], model 1688TC-52 Tendril SDX, serial number [id number]. -Right ventricular defibrillator lead needle board repairer [employer], model 7122Q-65 Durata, serial number [id number]. Dyslipidemia, goal LDL below 70 03/18/2013 Acquired [...] US of liver is tomorrow.. Called [facility], digital imager will be out to look at in home care. Thanks! Martha Peters RN documented in this encounter Plan of Treatment Upcoming Encounters Date Type Department Care Team (Late st Contact Info) Description 04/12/2023 12:30 PM EST Imaging Radiology [address] [place] [address] 04/15/2023 9:00 AM EST Office Visit [facility] [place] [address] [place] [address] Paul Brandt PA-C [address] [place] [address] 04/24/2023 10:30 AM EST Office Visit Cardiology, [facility] [address] [place] [address] Alexis Danielle, DO [address] [facility] [place] [address] 04/26/2023 9:00 AM EST Cardiac Studies Cardiology, [facility] [address] [facility] [place] [address] [facility] [address] [facility] [place] [address] 05/22/2023 8:15 AM EST Office Visit Urology [facility] [address] [place] [address] [place] [address] Ronny Mackey Jr., MD [address] [place] [address] [place] [address] 10/04/2023 7:20 AM EDT Office Visit [facility] [place], [place] [address] [place] [address] Roslyn Gale DO [address] [place] [address] Scheduled Referrals Name Type Priority Associated Diagnoses [...] Additional history exists CKD HGB USE SMARTSET 36844 04/08/202404/08, 04/08/2023, 10/24/2022, Additional history exists CKD PHOS USE SMARTSET 75182 04/08/202403/14, 01/23/2022, 01/13/2021, Additional history exists TSH [...] the patient have Health Care Power of Gym Manager? No Code Status History Code Status Date Activated Date Inactivated Comments Full Code 07/27/2014 1:43 PM 07/28/2014 2:00 PM This order reflects the patients wishes and were consensually agreed upon. Question Answer Comments Discussion of Advance Directives occurred with: Not Discussed Does the patient have a Living Will? No Does the patient have Health Care Power of Gym Manager? No Full Code 07/21/2014 11:34 AM 07/21/2014 10:34 PM Thi s order reflects the patients wishes and were consensually agreed upon. Question Answer Comments Discussion of Advance Directives occurred with: Not Discussed Does the patient have a Living Will? No Does the patient have Health Care Power of Gym Manager? No Full Code 03/14/2013 10:18 PM 03/25/2013 2:39 PM Thi s order reflects the patients wishes and were consensually agreed upon. Question Answer Comments Discussion of Advance Directives occurred with: Not Discussed Does the patient have a Living Will? No Does the patient have Health Care Power of Gym Manager? No Healthcare Agents on File Name Relationship Healthcare Agent Relationship Communication Jose HENDRIX Adult Child Health Straw Hat Washer Operator resentative (appointed verbally by patient or by statute hierarchy) Care Teams Road Driver Relationship Specialty Start Date End Date Roslyn Gale DO [address] [facility] [place] [address] PCP - General Family Medicine 11/10/18 documented as of this encounter
--- OUTSIDE RECORDS SUMMARY | 2023-05-18 10:49 | External Medical Summary | Summary of Care ---
Author Name Unknown Organization [facility] Address [address] [place] [address] Phone [phone] Care Team Providers Care Pipeline Systems Operator Name Role Phone Roslyn Gale DO Primary Care Provider +1- [phone] Reason for Visit * Reason Onset Date Comments Abnormal Test Results 04/10/202304/10 Encounter Details Date Type Department Care Team (Late st Contact Info) Description 04/10/2023 [facility] [place] [address] Roslyn Gale DO [address] [facility] [place] [address] Abnormal Test Results (04/10) Allergies Active [...] Sublingual (Nitrostat)Indicati ons:Cardiac arrest (HCC),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),Crescendo angina [...] Oral Tablet (pLAVix)Indications :Cardiomyopathy, ischemic,Atheroscle rosis of jackson 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) take 1 tablet by mouth once daily 90 Tablet 3 3 Active Metoprolol Succinate ER 50 MG Oral Tablet Extended Release 24 Hour (toPROL XL)Indications:Athe rosclerosis of jackson 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, model [id number] Fortify, serial number [id number]. -Atrial lead cook ship [employer], model 1688TC-52 Tendril SDX, serial number [id number]. -Right ventricular defibrillator lead cook ship [employer], model 7122Q-65 Durata, serial number [id number]. Dyslipidemia, goal LDL below 70 03/18/2013 Acquired [...] encounter Miscellaneous Notes * Telephone Encounter - Liliane Heath LPN - 04/10/2023 10:32 AM EST Patient's son aware and verbalized understanding, will comply. Transferred to radiology scheduling to make US appt. * Telephone Encounter - Leticia Murguia LPN - 04/10/2023 9:19 AM EST Left message for pt to return call for update * Telephone Encounter - Sarah Mendoza OSA - 04/10/2023 8:44 AM EST Please send encounter to [id number] when pt is aware of US order [...] Description 04/15/2023 9:00 AM EST Office Visit [facility], Lauren [address] [facility] [place] [address] Paul Brandt PA-C 57[address] [facility] [place] [address] 04/24/2023 10:30 AM EST Office Visit Cardiology, [facility] [address] [facility] [place] [address] Alexis Danielle DO [address] [place] [address] 04/26/2023 9:00 AM EST Cardiac Studies Cardiology, [facility] [address] [facility] [place] [address] [facility] [address] [place] [address] 05/22/2023 8:15 AM EST Office Visit [facility]rology [facility] [address] [place] [address] [place] [address] Key Sanz, Ronny Esquivel MD [address] [place] [address] [place] [address] 10/04/2023 7:20 AM EDT Office Visit Family Practice [address], Lauren [address] [place] [address] Roslyn Gale DO [address] [place] [address] Scheduled Orders Name Type Priority Associated Diagnoses [...] Additional history exists CKD HGB USE SMARTSET 82799 04/08/202404/08, 04/08/2023, 10/24/2022, Additional history exists CKD PHOS USE SMARTSET 90436 04/08/202403/14, 01/23/2022, 01/13/2021, Additional history exists TSH [...] the patient have Health Care Power of Artillery Officer? No Code Status History Code Status Date Activated Date Inactivated Comments Full Code 07/27/2014 1:43 PM 07/28/2014 2:00 PM This order reflects the patients wishes and were consensually agreed upon. Question Answer Comments Discussion of Advance Directives occurred with: Not Discussed Does the patient have a Living Will? No Does the patient have Health Care Power of Artillery Officer? No Full Code 07/21/2014 11:34 AM 07/21/2014 10:34 PM Thi s order reflects the patients wishes and were consensually agreed upon. Question Answer Comments Discussion of Advance Directives occurred with: Not Discussed Does the patient have a Living Will? No Does the patient have Health Care Power of Artillery Officer? No Full Code 03/14/2013 10:18 PM 03/25/2013 2:39 PM Thi s order reflects the patients wishes and were consensually agreed upon. Question Answer Comments Discussion of Advance Directives occurred with: Not Discussed Does the patient have a Living Will? No Does the patient have Health Care Power of Artillery Officer? No Healthcare Agents on File Name Relationship Healthcare Agent Relationship Communication Jose HENDRIX Adult Child Health Home Performance Laborer resentative (appointed verbally by patient or by statute hierarchy) Care Teams Pipeline Systems Operator Relationship Specialty Start Date End Date Roslyn Gale DO [address] [facility] [place] [address] PCP - General Family Medicine 11/10/18 documented as of this encounter
--- OUTSIDE RECORDS SUMMARY | 2023-05-18 10:49 | External Medical Summary | Summary of Care ---
Author Name Unknown Organization [facility] Address [address] [place] [address] Phone [phone] Care Team Providers Care Weaver Axminster Name Role Phone Roslyn Gale DO Primary Care Provider +1- [phone] Reason for Visit * Reason Onset Date Comments FYI 04/08/2023 Encounter Details Date Type Department Care Team (Late st Contact Info) Description 04/08/2023 Telephone Family Practice [place] Bullock [address] [place] [address] Roslyn Gale DO [address] [place] [address] FYI Allergies Active Allergy Reactions Criticality Noted [...] Sublingual (Nitrostat)Indicatio ns:Cardiac arrest (HCC),Atherosclerosi s of kake coronary artery of kake heart with stable angina pectoris (HCC),Crescendo angina [...] Oral Tablet (pLAVix)Indications: Cardiomyopathy, ischemic,Atheroscler osis of kake coronary artery of kake heart with stable angina pectoris (HCC) take 1 tablet by mouth once daily 90 Tablet 3 02/23/2023 Active Levothyroxine Sodium 75 MCG Oral Tablet (Levoxyl)Indications :Acquired hypothyroidism take 1 tablet by mouth every morning AT LEAST 30 MINUTES PRIOR TO BREAKFAST/OTHER MEDS 90 Tablet 3 02/23/2023 Active Metoprolol Succinate ER 50 MG Oral Tablet Extended Release 24 Hour (toPROL XL)Indications:Ather osclerosis of kake coronary artery of kake heart with stable angina pectoris (HCC),Cardiomyopathy , [...] systolic, due to CAD 07/13/2020 Atherosclerosis of kake co ronary artery of kake heart with stable angina pectoris 11/10/2018 History of cardiac arrest 11/10/2018 History of prostate cancer 04/22/2017 S/P CABG (coronary artery bypass graft) 04/22/20 17 Statin intolerance 10/23/2016 Gastroesophageal reflux disease with esophagitis 2015 HTN, goal below 130/80 2015 BPH without obstruction/lower urinary tract symp toms 08/20/2014 ICD (implantable cardioverter-defibrillator) in place 03/20/2013 Overview: -Cardioverter-defibrillator middleware systems architect [employer], model [id number] Fortify, serial number [id number]. -Atrial lead middleware systems architect [employer], model 1688TC-52 Tendril SDX, serial number [id number]. -Right ventricular defibrillator lead middleware systems architect [employer], model 7122Q-65 Durata, serial number [id number]. Dyslipidemia, goal LDL below 70 03/18/2013 Acquired [...] also a small laceration on the left fourthfinger. Laceration on the nasal bridge was dressed with a pressure dressing and ice applied. Cervical spine was non-tender to palpation. No visible deformity of the eyes, neck noted. Recommended pt go to the ER by ambulance; pt and his son declined; son will drive him to [facility] ER. Nursing called ER to give report and faxed face sheet over. Jose R Ruma Troy. refuses treatment and/or wishes to leave the [...] 04/24/2023 10:30 AM EST Office Visit Cardiology, [place] [address] [place] [address] Alexis Danielle, [address] [place] [address] [place] [address] 04/26/2023 9:00 AM EST Cardiac Studies Cardiology, [facility] 132 [place] [address] [facility] [address] [place] [address] 05/22/2023 8:15 AM EST Office Visit Urology [facility] [address] [place] [address] [place] [address] Ronny Mackey Jr., MD [address] [place] [address] [place] [address] 10/04/2023 7:20 AM EDT Office Visit Family Practice [address], Lauren [address] [place] [address] Roslyn Gale, [address] [place] [address] Health Maintenance Due Date Last Done Comments COVID-19 Vaccine (#1) 06/07/1941 Zoster Vaccines (2 of 3) 07/12/2014 05/17/2014 Depression Screening 11/22/2020 11/23/2019 Albumin/Creatinine Ratio 10/06/2023 023, 04/15/2017, 11/10/2014 GFR 10/07/2023 04/08/2023, 10/13, 10/24/2022, Additional history exists CKD HGB USE SMARTSET 50998 04/08/202404/08, 04/08/2023, 10/24/2022, Additional history exists CKD PHOS USE SMARTSET 45019 04/08/202403/14, 01/23/2022, 01/13/2021, Additional history exists TSH [...] the patient have Health Care Power of Sports Athletic Trainer? No Code Status History Code Status Date Activated Date Inactivated Comments Full Code 07/27/2014 1:43 PM 07/28/2014 2:00 PM This order reflects the patients wishes and were consensually agreed upon. Question Answer Comments Discussion of Advance Directives occurred with: Not Discussed Does the patient have a Living Will? No Does the patient have Health Care Power of Sports Athletic Trainer? No Full Code 07/21/2014 11:34 AM 07/21/2014 10:34 PM Thi s order reflects the patients wishes and were consensually agreed upon. Question Answer Comments Discussion of Advance Directives occurred with: Not Discussed Does the patient have a Living Will? No Does the patient have Health Care Power of Sports Athletic Trainer? No Full Code 03/14/2013 10:18 PM 03/25/2013 2:39 PM Thi s order reflects the patients wishes and were consensually agreed upon. Question Answer Comments Discussion of Advance Directives occurred with: Not Discussed Does the patient have a Living Will? No Does the patient have Health Care Power of Sports Athletic Trainer? No Healthcare Agents on File Name Relationship Healthcare Agent Relationship Communication Jose HENDRIX Adult Child Health French Edge Operator resentative (appointed verbally by patient or by statute hierarchy) Care Teams Weaver [place]minster Relationship Specialty Start Date End Date Roslyn Gale DO [address] [facility] [place] [address] PCP - General Family Medicine 11/10/18 documented as of this encounter
--- OUTSIDE RECORDS SUMMARY | 2023-05-18 10:49 | External Medical Summary | Summary of Care ---
Author Name Unknown Organization [facility] Address [address] [place] [address] Phone [phone] Care Team Providers Care Avionics Test Technician Name Role Phone Roslyn Gale DO Primary Care Provider +1- [phone] Reason for Visit * Reason Onset Date Comments Abnormal Test Results 04/10/2023 Encounter Details Date Type Department Care Team (Late st Contact Info) Description 04/10/2023 Telephone Family Practice [place] Lauren Bullock [address] [place] [address] Roslyn Gale DO [address] [facility] [place] [address] Abnormal Test Results Allergies Active Allergy Reactions Criticality [...] Sublingual (Nitrostat)Indicati ons:Cardiac arrest (HCC),Atheroscleros is of enterprise coronary artery of enterprise heart with stable angina pectoris (HCC),Crescendo angina [...] Oral Tablet (pLAVix)Indications :Cardiomyopathy, ischemic,Atheroscle rosis of enterprise coronary artery of enterprise heart with stable angina pectoris (HCC) take 1 tablet by mouth once daily 90 Tablet 3 3 Active Metoprolol Succinate ER 50 MG Oral Tablet Extended Release 24 Hour (toPROL XL)Indications:Athe rosclerosis of enterprise coronary artery of enterprise heart with stable angina pectoris (HCC),Cardiomyopath y, [...] systolic, due to CAD 07/13/2020 Atherosclerosis of enterprise co ronary artery of enterprise heart with stable angina pectoris 11/10/2018 History of cardiac arrest 11/10/2018 History of prostate cancer 04/22/2017 S/P CABG (coronary artery bypass graft) 04/22/20 17 Statin intolerance 10/23/2016 Gastroesophageal reflux disease with esophagitis 2015 HTN, goal below 130/80 2015 BPH without obstruction/lower urinary tract symp toms 08/20/2014 ICD (implantable cardioverter-defibrillator) in place 03/20/2013 Overview: -Cardioverter-defibrillator board finisher [employer], model [id number] Fortify, serial number [id number]. -Atrial lead board finisher [employer], model 1688TC-52 Tendril SDX, serial number [id number]. -Right ventricular defibrillator lead board finisher [employer], model 7122Q-65 Durata, serial number [id number]. Dyslipidemia, goal LDL below 70 03/18/2013 Acquired [...] 8:44 AM EST Please send encounter to [id number] when pt is aware of US order [...] 9:00 AM EST Office Visit [facility] Lauren Bullock [address] [place] [address] Paul Brandt PA-C [address] [place] [address] 04/24/2023 10:30 AM EST Office Visit Cardiology, [facility] 132 [facility] [place] [address] Aelxis Danielle DO 132 [facility] [place] [address] 04/26/2023 9:00 AM EST Cardiac Studies Cardiology, [facility] 132 [facility] [place] [address] [facility] 132 [facility] [place] [address] 05/22/2023 8:15 AM EST Office Visit Urology [place] [address] [place] [address] [place] [address] Key Sanz, Ronny Esquivel MD [address] [place] [address] [place] [address] 10/04/2023 7:20 AM EDT Office Visit [facility] Lauren Bullock [address] [place] [address] Roslyn Gale DO [address] [place] [address] Scheduled Orders Name Type Priority Associated Diagnoses [...] Additional history exists CKD HGB USE SMARTSET 44121 04/08/202404/08, 04/08/2023, 10/24/2022, Additional history exists CKD PHOS USE SMARTSET 61158 04/08/202403/14, 01/23/2022, 01/13/2021, Additional history exists TSH [...] the patient have Health Care Power of Therapeutic Massage Technician? No Code Status History Code Status Date Activated Date Inactivated Comments Full Code 07/27/2014 1:43 PM 07/28/2014 2:00 PM This order reflects the patients wishes and were consensually agreed upon. Question Answer Comments Discussion of Advance Directives occurred with: Not Discussed Does the patient have a Living Will? No Does the patient have Health Care Power of Therapeutic Massage Technician? No Full Code 07/21/2014 11:34 AM 07/21/2014 10:34 PM Thi s order reflects the patients wishes and were consensually agreed upon. Question Answer Comments Discussion of Advance Directives occurred with: Not Discussed Does the patient have a Living Will? No Does the patient have Health Care Power of Therapeutic Massage Technician? No Full Code 03/14/2013 10:18 PM 03/25/2013 2:39 PM Thi s order reflects the patients wishes and were consensually agreed upon. Question Answer Comments Discussion of Advance Directives occurred with: Not Discussed Does the patient have a Living Will? No Does the patient have Health Care Power of Therapeutic Massage Technician? No Healthcare Agents on File Name Relationship Healthcare Agent Relationship Communication Jose HENDRIX Adult Child Health Sugar Mill Worker resentative (appointed verbally by patient or by statute hierarchy) Care Teams Avionics Test Technician Relationship Specialty Start Date End Date Roslyn Gale DO [address] [facility] [place] [address] PCP - General Family Medicine 11/10/18 documented as of this encounter
--- OUTSIDE RECORDS SUMMARY | 2023-05-18 10:49 | External Medical Summary | Summary of Care ---
Author Name Unknown Organization [facility] Address [address] [place] [address] Phone [phone] Care Team Providers Care Nuclear Powerplant Mechanic Helper Name Role Phone Roslyn Gale DO Primary Care Provider +1- [phone] Reason for Visit * Reason Onset Date Comments Abnormal Test Results 04/10/2023 Encounter Details Date Type Department Care Team (Late st Contact Info) Description 04/10/2023 Telephone Family Practice [place] Lauren Bullock [address] [place] [address] Roslyn Gale DO [address] [facility] [place] [address] Abnormal Test Results Allergies Active Allergy Reactions [...] Sublingual (Nitrostat)Indicati ons:Cardiac arrest (HCC),Atheroscleros is of upper sioux coronary artery of upper si[place] heart with stable angina pectoris (HCC),Crescendo angina [...] Oral Tablet (pLAVix)Indications :Cardiomyopathy, ischemic,Atheroscle rosis of upper [place] coronary artery of upper [place] heart with stable angina pectoris (HCC) take 1 tablet by mouth once daily 90 Tablet 3 3 Active Metoprolol Succinate ER 50 MG Oral Tablet Extended Release 24 Hour (toPROL XL)Indications:Athe rosclerosis of upper [place] coronary artery of upper si[place] heart with stable angina pectoris (HCC),Cardiomyopath y, [...] systolic, due to CAD 07/13/2020 Atherosclerosis of upper sioux co ronary artery of upper sioux heart with stable angina pectoris 11/10/2018 History of cardiac arrest 11/10/2018 History of prostate cancer 04/22/2017 S/P CABG (coronary artery bypass graft) 04/22/20 17 Statin intolerance 10/23/2016 Gastroesophageal reflux disease with esophagitis 2015 HTN, goal below 130/80 2015 BPH without obstruction/lower urinary tract symp toms 08/20/2014 ICD (implantable cardioverter-defibrillator) in place 03/20/2013 Overview: -Cardioverter-defibrillator senior php developer [employer], model [id number] Fortify, serial number [id number]. -Atrial lead senior php developer [employer], model 1688TC-52 Tendril SDX, serial number [id number]. -Right ventricular defibrillator lead senior php developer [employer], model 7122Q-65 Durata, serial number [id number]. Dyslipidemia, goal LDL below 70 03/18/2013 Acquired [...] call for update * Telephone Encounter - NewSarah guerrero OSA - 04/10/2023 8:44 AM EST Please send encounter to [id number] when pt is aware of US order [...] 04/15/2023 9:00 AM EST Office Visit Family [facility] Lauren Bullock [address] [place] [address] Paul Brandt PA-C [address] [place] [address] 04/24/2023 10:30 AM EST Office Visit Cardiology, [facility] [address] [place] [address] Alexis Danielle DO [address] [place] [address] 04/26/2023 9:00 AM EST Cardiac Studies Cardiology, [facility] [address] [place] [address] Katherine Kurtz [facility] [address] [place] [address] 05/22/2023 8:15 AM EST Office Visit Urology [place] [address] [place] [address] [place] [address] Ronny Mackey Jr., MD 27 [facility] [place] [address] [place] [address] 10/04/2023 7:20 AM EDT Office Visit [facility] [address], [place] [address] [place] [address] Roslyn Gale DO [address] [place] [address] Scheduled Orders Name Type [...] Additional history exists CKD HGB USE SMARTSET 18434 04/08/202404/08, 04/08/2023, 10/24/2022, Additional history exists CKD PHOS USE SMARTSET 04840 04/08/202403/14, 01/23/2022, 01/13/2021, Additional history exists TSH [...] the patient have Health Care Power of Marketing Content Coordinator? No Code Status History Code Status Date Activated Date Inactivated Comments Full Code 07/27/2014 1:43 PM 07/28/2014 2:00 PM This order reflects the patients wishes and were consensually agreed upon. Question Answer Comments Discussion of Advance Directives occurred with: Not Discussed Does the patient have a Living Will? No Does the patient have Health Care Power of Marketing Content Coordinator? No Full Code 07/21/2014 11:34 AM 07/21/2014 10:34 PM Thi s order reflects the patients wishes and were consensually agreed upon. Question Answer Comments Discussion of Advance Directives occurred with: Not Discussed Does the patient have a Living Will? No Does the patient have Health Care Power of Marketing Content Coordinator? No Full Code 03/14/2013 10:18 PM 03/25/2013 2:39 PM Thi s order reflects the patients wishes and were consensually agreed upon. Question Answer Comments Discussion of Advance Directives occurred with: Not Discussed Does the patient have a Living Will? No Does the patient have Health Care Power of Marketing Content Coordinator? No Healthcare Agents on File Name Relationship Healthcare Agent Relationship Communication Jose HENDRIX Adult Child Health Card Boxer resentative (appointed verbally by patient or by statute hierarchy) Care Teams Nuclear Powerplant Mechanic Helper Relationship Specialty Start Date End Date Roslyn Gale DO [address] [facility] [place] [address] PCP - General Family Medicine 11/10/18 documented as of this encounter
--- OUTSIDE RECORDS SUMMARY | 2023-05-18 10:49 | External Medical Summary | Summary of Care ---
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),Crescendo angina [...] Oral Tablet (pLAVix)Indications: Cardiomyopathy, ischemic,Atheroscler osis of wiy[place]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) take 1 tablet by mouth once daily 90 Tablet 3 02/23/2023 Active Levothyroxine Sodium 75 MCG Oral Tablet (Levoxyl)Indications :Acquired hypothyroidism take 1 tablet by mouth every morning AT LEAST 30 MINUTES PRIOR TO BREAKFAST/OTHER MEDS 90 Tablet 3 02/23/2023 Active Metoprolol Succinate ER 50 MG Oral Tablet Extended Release 24 Hour (toPROL XL)Indications:Ather osclerosis of wiyot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, model [id number] Fortify, serial number [id number]. -Atrial lead skull grinder [employer], model 1688TC-52 Tendril SDX, serial number [id number]. -Right ventricular defibrillator lead skull grinder [employer], model 7122Q-65 Durata, serial number [id number]. Dyslipidemia, goal LDL below 70 03/18/2013 Acquired [...] 04/24/2023 10:30 AM EST Office Visit Cardiology, [facility] [address] [facility] [place] [address] Alexis Danielle, [address] [place] [address] 04/26/2023 9:00 AM EST Cardiac Studies Cardiology, [facility] [address] [facility] [place] [address] [facility] [address] [place] [address] 05/22/2023 8:15 AM EST Office Visit Urology [place] Coleman [address] [place] [address] [place] [address] Ronny Mackey Jr., MD [address] [place] [address] [place] [address] 10/04/2023 7:20 AM EDT Office Visit Family Practice [address] [place] [address] Roslyn Gale DO [address] [place] [address] Health Maintenance Due Date Last Done Comments COVID-19 Vaccine (#1) 06/07/1941 Zoster Vaccines (2 of 3) 07/12/2014 05/17/2014 Depression Screening 11/22/2020 11/23/2019 Albumin/Creatinine Ratio 10/06/2023 023, 04/15/2017, 11/10/2014 GFR 10/07/2023 04/08/2023, 10/13, 10/24/2022, Additional history exists CKD HGB USE SMARTSET 73372 04/08/202404/08, 04/08/2023, 10/24/2022, Additional history exists CKD PHOS USE SMARTSET 76805 04/08/202403/14, 01/23/2022, 01/13/2021, Additional history exists TSH [...] Procedure Name Priority Date/Time Associated Diagnosis Comments RADIOLOGY SCANNED RESULT 04/08/2023 RADIOLOGY SCANNED RESULT 04/08/2023 documented in this encounter Results * RADIOLOGY SCANNED RESULT (04/08/2023) 04/08/2023 No Physician Data Unknown DIAGNOSTIC RAD IOLOGY SERVICES * RADIOLOGY SCANNED RESULT (04/08/2023) 04/08/2023 No Physician Data Unknown DIAGNOSTIC RAD IOLOGY SERVICES documented in this encounter Advance Directives Latest [...] the patient have Health Care Power of Computer Equipment Installer? No Code Status History Code Status Date Activated Date Inactivated Comments Full Code 07/27/2014 1:43 PM 07/28/2014 2:00 PM This order reflects the patients wishes and were consensually agreed upon. Question Answer Comments Discussion of Advance Directives occurred with: Not Discussed Does the patient have a Living Will? No Does the patient have Health Care Power of Computer Equipment Installer? No Full Code 07/21/2014 11:34 AM 07/21/2014 10:34 PM Thi s order reflects the patients wishes and were consensually agreed upon. Question Answer Comments Discussion of Advance Directives occurred with: Not Discussed Does the patient have a Living Will? No Does the patient have Health Care Power of Computer Equipment Installer? No Full Code 03/14/2013 10:18 PM 03/25/2013 2:39 PM Thi s order reflects the patients wishes and were consensually agreed upon. Question Answer Comments Discussion of Advance Directives occurred with: Not Discussed Does the patient have a Living Will? No Does the patient have Health Care Power of Computer Equipment Installer? No Healthcare Agents on File Name Relationship Healthcare Agent Relationship Communication Jose HENDRIX Adult Child Health Gyro Mechanic resentative (appointed verbally by patient or by statute hierarchy) Care Teams Analysis Intern Relationship Specialty Start Date End Date Roslyn Gale DO [address] [facility] [place] [address] PCP - General Family Medicine 11/10/18 documented as of this encounter
--- OUTSIDE RECORDS SUMMARY | 2023-05-18 10:49 | External Medical Summary | Summary of Care ---
Author Name Unknown Organization [facility] Address [address] [place] [address] Phone [phone] Care Team Providers Care Patch Sander Name Role Phone Roslyn Gale DO Primary Care Provider +1- [phone] Reason for Visit * Reason Onset Date Comments Abnormal Test Results 04/10/2023 Encounter Details Date Type Department Care Team (Late st Contact Info) Description 04/10/2023 Telephone Family Practice [place] Lauren Bullock [address] [place] [address] Roslyn Gale DO [address] [facility] [place] [address] Abnormal Test Results Allergies Active Allergy Reactions [...] Sublingual (Nitrostat)Indicati ons:Cardiac arrest (HCC),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),Crescendo angina [...] Oral Tablet (pLAVix)Indications :Cardiomyopathy, ischemic,Atheroscle rosis of [place] coronary artery of [place] heart with stable angina pectoris (HCC) take 1 tablet by mouth once daily 90 Tablet 3 3 Active Metoprolol Succinate ER 50 MG Oral Tablet Extended Release 24 Hour (toPROL XL)Indications:Athe rosclerosis of [place] coronary artery of [place] heart with stable angina pectoris (HCC),Cardiomyopath y, [...] systolic, due to CAD 07/13/2020 Atherosclerosis of chil[place] co ronary artery of chilkat heart with stable angina pectoris 11/10/2018 History of cardiac arrest 11/10/2018 History of prostate cancer 04/22/2017 S/P CABG (coronary artery bypass graft) 04/22/20 17 Statin intolerance 10/23/2016 Gastroesophageal reflux disease with esophagitis 2015 HTN, goal below 130/80 2015 BPH without obstruction/lower urinary tract symp toms 08/20/2014 ICD (implantable cardioverter-defibrillator) in place 03/20/2013 Overview: -Cardioverter-defibrillator research anthropologist [employer], model [id number] Fortify, serial number [id number]. -Atrial lead research anthropologist [employer], model 1688TC-52 Tendril SDX, serial number [id number]. -Right ventricular defibrillator lead research anthropologist [employer], model 7122Q-65 Durata, serial number [id number]. Dyslipidemia, goal LDL below 70 03/18/2013 Acquired [...] 8:44 AM EST Please send encounter to [id number] when pt is aware of US order [...] Description 04/15/2023 9:00 AM EST [facility]ern Bullock [address] [place] [address] Paul Brandt PA-C [address] [place] [address] 04/24/2023 10:30 AM EST Office Visit Cardiology, [facility] [address] [facility] [place] [address] Alexis Danielle DO [address] [facility] [place] [address] 04/26/2023 9:00 AM EST Cardiac Studies Cardiology, [facility] [address] [facility] [place] [address] [address] [facility] 132 [facility] [place] [address] 05/22/2023 8:15 AM EST Office Visit Urology Sherman Coleman [address] [place] [address] [place] [address] Key Sanz, Ronny Esquivel MD [address] [place] [address] [place] [address] 10/04/2023 7:20 AM EDT [facility] Lauren Bullock [address] [place] [address] Roslyn Gale DO [address] [place] [address] Scheduled Orders Name Type [...] Additional history exists CKD HGB USE SMARTSET 45228 04/08/202404/08, 04/08/2023, 10/24/2022, Additional history exists CKD PHOS USE SMARTSET 39930 04/08/202403/14, 01/23/2022, 01/13/2021, Additional history exists TSH [...] the patient have Health Care Power of Information Systems Consultant? No Code Status History Code Status Date Activated Date Inactivated Comments Full Code 07/27/2014 1:43 PM 07/28/2014 2:00 PM This order reflects the patients wishes and were consensually agreed upon. Question Answer Comments Discussion of Advance Directives occurred with: Not Discussed Does the patient have a Living Will? No Does the patient have Health Care Power of Information Systems Consultant? No Full Code 07/21/2014 11:34 AM 07/21/2014 10:34 PM Thi s order reflects the patients wishes and were consensually agreed upon. Question Answer Comments Discussion of Advance Directives occurred with: Not Discussed Does the patient have a Living Will? No Does the patient have Health Care Power of Information Systems Consultant? No Full Code 03/14/2013 10:18 PM 03/25/2013 2:39 PM Thi s order reflects the patients wishes and were consensually agreed upon. Question Answer Comments Discussion of Advance Directives occurred with: Not Discussed Does the patient have a Living Will? No Does the patient have Health Care Power of Information Systems Consultant? No Healthcare Agents on File Name Relationship Healthcare Agent Relationship Communication Jose HENDRIX Adult Child Health Cushion Sewer resentative (appointed verbally by patient or by statute hierarchy) Care Teams Patch Sander Relationship Specialty Start Date End Date Roslyn Gale DO [address] [facility] [place] [address] PCP - General Family Medicine 11/10/18 documented as of this encounter
--- OUTSIDE RECORDS SUMMARY | 2023-05-18 10:49 | External Medical Summary | Summary of Care ---
Author Name Unknown Organization [facility] Address [address] [place] [address] Phone [phone] Care Team Providers Care Practice Professional Name Role Phone Roslyn Gale DO Primary Care Provider +1- [phone] Reason for Visit * Reason Onset Date Comments FYI 04/08/2023 ER follow up Encounter Details Date Type Department Care Team (Late st Contact Info) Description 04/08/2023 Telephone Family Practice [place] Lauren Bullock [address] [place] [address] Roslyn Gale DO [address] [facility] [place] [address] FYI (ER follow up) Allergies Active Allergy [...] Sublingual (Nitrostat)Indicatio ns:Cardiac arrest (HCC),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),Crescendo angina [...] Oral Tablet (pLAVix)Indications: Cardiomyopathy, ischemic,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) take 1 tablet by mouth once daily 90 Tablet 3 02/23/2023 Active Levothyroxine Sodium 75 MCG Oral Tablet (Levoxyl)Indications :Acquired hypothyroidism take 1 tablet by mouth every morning AT LEAST 30 MINUTES PRIOR TO BREAKFAST/OTHER MEDS 90 Tablet 3 02/23/2023 Active Metoprolol Succinate ER 50 MG Oral Tablet Extended Release 24 Hour (toPROL XL)Indications:Ather osclerosis of [place] 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, model [id number] Fortify, serial number [id number]. -Atrial lead alterations workroom clerk [employer], model 1688TC-52 Tendril SDX, serial number [id number]. -Right ventricular defibrillator lead alterations workroom clerk [employer], model 7122Q-65 Durata, serial number [id number]. Dyslipidemia, goal LDL below 70 03/18/2013 Acquired [...] Miscellaneous Notes * Telephone Encounter - Susan Waed LPN - 04/09/2023 10:38 AM EST Please [...] son declined; son will drive him to [facility] ER. Nursing called ER to give [...] 04/24/2023 10:30 AM EST Office Visit Cardiology, [address] [place] [address] Alexis Danielle, DO [address] [place] [address] 04/26/2023 9:00 AM EST Cardiac Studies Cardiology, [facility] [address] [place] [address] [facility] [address] [place] [address] 05/22/2023 8:15 AM EST Office Visit Urology Sherman Coleman [address] [place] [address] [place] [address] Ronny Mackey Jr., MD [address] [place] [address] [place] [address] 10/04/2023 7:20 AM EDT Office Visit Family Practice [place] Lauren Bullock [address] [place] [address] Roslyn Gale, [address] [place] [address] Health Maintenance Due Date Last Done Comments COVID-19 Vaccine (#1) 06/07/1941 Zoster Vaccines (2 of 3) 07/12/2014 05/17/2014 Depression Screening 11/22/2020 11/23/2019 Albumin/Creatinine Ratio 10/06/2023 023, 04/15/2017, 11/10/2014 GFR 10/07/2023 04/08/2023, 10/13, 10/24/2022, Additional history exists CKD HGB USE SMARTSET 86619 04/08/202404/08, 04/08/2023, 10/24/2022, Additional history exists CKD PHOS USE SMARTSET 24011 04/08/202403/14, 01/23/2022, 01/13/2021, Additional history exists TSH [...] the patient have Health Care Power of Insulation Worker Interior Surface? No Code Status History Code Status Date Activated Date Inactivated Comments Full Code 07/27/2014 1:43 PM 07/28/2014 2:00 PM This order reflects the patients wishes and were consensually agreed upon. Question Answer Comments Discussion of Advance Directives occurred with: Not Discussed Does the patient have a Living Will? No Does the patient have Health Care Power of Insulation Worker Interior Surface? No Full Code 07/21/2014 11:34 AM 07/21/2014 10:34 PM Thi s order reflects the patients wishes and were consensually agreed upon. Question Answer Comments Discussion of Advance Directives occurred with: Not Discussed Does the patient have a Living Will? No Does the patient have Health Care Power of Insulation Worker Interior Surface? No Full Code 03/14/2013 10:18 PM 03/25/2013 2:39 PM Thi s order reflects the patients wishes and were consensually agreed upon. Question Answer Comments Discussion of Advance Directives occurred with: Not Discussed Does the patient have a Living Will? No Does the patient have Health Care Power of Insulation Worker Interior Surface? No Healthcare Agents on File Name Relationship Healthcare Agent Relationship Communication Jose HENDRIX Adult Child Health Yarrow Gatherer resentative (appointed verbally by patient or by statute hierarchy) Care Teams Practice Professional Relationship Specialty Start Date End Date Roslyn Gale DO [address] [facility] [place] [address] PCP - General Family Medicine 11/10/18 documented as of this encounter
--- OUTSIDE RECORDS SUMMARY | 2023-05-18 10:49 | External Medical Summary | Summary of Care ---
Author Name Unknown Organization [facility] Address [address] [place] [address] Phone [phone] Care Team Providers Care Forestry Aid Name Role Phone Roslyn Gale DO Primary Care Provider +1- [phone] Reason for Visit * Reason Onset Date Comments FYI 04/08/2023 Encounter Details Date Type Department Care Team (Late st Contact Info) Description 04/08/2023 Telephone Family Practice [place] Lauren Bullock [address] [place] [address] Roslyn Gale DO [address] [place] [address] FYI Allergies Active Allergy Reactions Criticality Noted [...] Sublingual (Nitrostat)Indicatio ns:Cardiac arrest (HCC),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),Crescendo angina [...] Oral Tablet (pLAVix)Indications: Cardiomyopathy, ischemic,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) take 1 tablet by mouth once daily 90 Tablet 3 02/23/2023 Active Levothyroxine Sodium 75 MCG Oral Tablet (Levoxyl)Indications :Acquired hypothyroidism take 1 tablet by mouth every morning AT LEAST 30 MINUTES PRIOR TO BREAKFAST/OTHER MEDS 90 Tablet 3 02/23/2023 Active Metoprolol Succinate ER 50 MG Oral Tablet Extended Release 24 Hour (toPROL XL)Indications:Ather osclerosis of [place] 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),Cardiomyopathy , [...] systolic, due to CAD 07/13/2020 Atherosclerosis of [place] co ronary artery of [place] heart with stable angina pectoris 11/10/2018 History of cardiac arrest 11/10/2018 History of prostate cancer 04/22/2017 S/P CABG (coronary artery bypass graft) 04/22/20 17 Statin intolerance 10/23/2016 Gastroesophageal reflux disease with esophagitis 2015 HTN, goal below 130/80 2015 BPH without obstruction/lower urinary tract symp toms 08/20/2014 ICD (implantable cardioverter-defibrillator) in place 03/20/2013 Overview: -Cardioverter-defibrillator orthotist/prosthetist [employer], model [id number] Fortify, serial number [id number]. -Atrial lead orthotist/prosthetist [employer], model 1688TC-52 Tendril SDX, serial number [id number]. -Right ventricular defibrillator lead orthotist/prosthetist [employer], model 7122Q-65 Durata, serial number [id number]. Dyslipidemia, goal LDL below 70 03/18/2013 Acquired [...] son declined; son will drive him to [facility] ER. Nursing called ER to give [...] 04/24/2023 10:30 AM EST Office Visit Cardiology, [facility] 132 [facility] [place] [address] Alexis Danielle, 132 [facility] [place] [address] 04/26/2023 9:00 AM EST Cardiac Studies Cardiology, [facility] [address] [facility] [place] [address] [facility] [address] [facility] [place] [address] 05/22/2023 8:15 AM EST Office Visit Urology Sherman Coleman [address] [place] [address] Ronny Mackey Jr., MD [address] [place] [address] [place] [address] 10/04/2023 7:20 AM EDT Office Visit Family Practice [place] [address], [place] [address] [place] [address] Roslyn Gale DO [address] [place] [address] Health Maintenance Due Date Last Done Comments COVID-19 Vaccine (#1) 06/07/1941 Zoster Vaccines (2 of 3) 07/12/2014 05/17/2014 Depression Screening 11/22/2020 11/23/2019 CKD PHOS USE SMARTSET 43168 01/23/202301/11, 01/13/2021, 03/04/2019, Additional history exists GFR 05/11/2023 11/09/2022, 10/11, 10/05/2022, Additional history exists Albumin/Creatinine Ratio 10/06/2023 023, 04/15/2017, 11/10/2014 CKD HGB USE SMARTSET 44753 10/25/202310/24, 10/24/2022, 10/05/2022, Additional history exists TSH [...] the patient have Health Care Power of Roll Slicing Machine Tender? No Code Status History Code Status Date Activated Date Inactivated Comments Full Code 07/27/2014 1:43 PM 07/28/2014 2:00 PM This order reflects the patients wishes and were consensually agreed upon. Question Answer Comments Discussion of Advance Directives occurred with: Not Discussed Does the patient have a Living Will? No Does the patient have Health Care Power of Roll Slicing Machine Tender? No Full Code 07/21/2014 11:34 AM 07/21/2014 10:34 PM Thi s order reflects the patients wishes and were consensually agreed upon. Question Answer Comments Discussion of Advance Directives occurred with: Not Discussed Does the patient have a Living Will? No Does the patient have Health Care Power of Roll Slicing Machine Tender? No Full Code 03/14/2013 10:18 PM 03/25/2013 2:39 PM Thi s order reflects the patients wishes and were consensually agreed upon. Question Answer Comments Discussion of Advance Directives occurred with: Not Discussed Does the patient have a Living Will? No Does the patient have Health Care Power of Roll Slicing Machine Tender? No Healthcare Agents on File Name Relationship Healthcare Agent Relationship Communication Jose HENDRIX Adult Child Health Operator resentative (appointed verbally by patient or by statute hierarchy) Care Teams Forestry Aid Relationship Specialty Start Date End Date Roslyn Gale DO [address] [facility] [place] [address] PCP - General Family Medicine 11/10/18 documented as of this encounter
--- OUTSIDE RECORDS SUMMARY | 2023-05-18 10:50 | External Medical Summary | Summary of Care ---
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) Allergies Active Allergy Reactions Criticality Noted Date Comments Pantoprazole Hives 01/13/2016 Sucralfate Hives 01/13/2016 documented as of this encounter (statuses as of 03/08/2023) Medications Medication Sig Dispensed Refills Start Date End Date Status ASPIRIN 81 MG PO CHEWIndications:INTERF ACED RESULT Take 1 tablet by mouth daily 32 Tab 11 03/24/2013 Active Nitroglycerin 0.4 MG Sublingual Tablet Sublingual (Nitrostat)Indications :Cardiac arrest (HCC),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 25 Tablet 3 05/11/2021 Active Metoprolol Succinate ER 50 MG Oral Tablet Extended Release 24 Hour (toPROL XL)Indications:Atheros clerosis of [place] coronary artery of [place] heart with stable angina pectoris (HCC),Cardiomyopathy, ischemic Take by mouth 1 Tablet in the morning AND 1 Tablet before bedtime. 180 Tablet 4 01/24/2022 Active Amiodarone HCl 200 MG Oral Tablet (Cordarone) take 1 tablet by mouth once daily 90 Tablet 3 04/30/2022 Active Finasteride 5 MG Oral Tablet (Proscar)Indications:B PH with obstruction/lower urinary tract symptoms,Prostate cancer (HCC) Take 1 Tablet by mouth in the morning. 90 Tablet 3 05/22/2022 Active Rosuvastatin Calcium 5 MG Oral Tablet (Crestor)Indications:D yslipidemia, goal LDL below 70 Take 1 Tablet by mouth in the morning. 90 Tablet 3 05/24/2022 Active Docusate Sodium 100 MG Oral Capsule (Colace)Indications:Co nstipation, unspecified constipation type Take 1 Capsule by mouth every night at bedtime. 90 Capsule 3 10/19/2022 Active Torsemide 10 MG Oral Tablet (Demadex) Take 0.5 Tablets by mouth in the morning. 90 Tablet 3 10/24/2022 Active Isosorbide Mononitrate ER 30 MG Oral Tablet Extended Release 24 Hour (Imdur)Indications:Hea rt failure, systolic, due to CAD Take 1 Tablet by mouth in the morning. 90 Tablet 3 10/26/2022 Active Lisinopril 2.5 MG Oral Tablet (Prinivil) Take 1 Tablet by mouth in the morning. 90 Tablet 3 10/26/2022 Active Clopidogrel Bisulfate 75 MG Oral Tablet (pLAVix)Indications:Ca rdiomyopathy, ischemic,Atheroscleros is of [place] coronary artery of [place] heart with stable angina pectoris (HCC) take 1 tablet by mouth once daily 90 Tablet 3 02/23/2023 Active Levothyroxine Sodium 75 MCG Oral Tablet (Levoxyl)Indications:A cquired hypothyroidism take 1 tablet by mouth every morning AT LEAST 30 MINUTES PRIOR TO BREAKFAST/OTHER MEDS 90 Tablet 3 02/23/2023 Active documented as of this encounter (statuses as of 03/08/2023) Active Problems Problem Noted Date Diagnosed Date Protein-calorie malnutrition 10/19/2022 VT (ventricular tachycardia) 07/13/2021 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 stage 3 chronic kidney disease 07/13/2021 VF (ventricular fibrillation) 05/11/2021 S/P drug eluting coronary stent placement 2020 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 CHF, NYHA class 3 and CKD stage 3 09/20/2020 Overview: Per CKD protocol Heart failure, systolic, due to CAD 07/13/2020 Atherosclerosis of [place] co ronary artery of [place] heart with stable angina pectoris 11/10/2018 History of cardiac arrest 11/10/2018 S/P CABG (coronary artery bypass graft) 04/22/20 17 Statin intolerance 10/23/2016 Gastroesophageal reflux disease with esophagitis 2015 HTN, goal below 130/80 2015 BPH without obstruction/lower urinary tract symp toms 08/20/2014 ICD (implantable cardioverter-defibrillator) in place 03/20/2013 Overview: -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 -Atrial lead livestock trucker [employer], model 1688TC-52 Tendril SDX, serial number [id number]. -Right ventricular defibrillator lead livestock trucker [employer], model 7122Q-65 Durata, serial number [id number]. Dyslipidemia, goal LDL below 70 03/18/2013 Acquired hypothyroidism 03/18/2013 Cardiomyopathy, ischemic 03/15/2013 documented as of this encounter (statuses as of 03/08/2023) Resolved Problems Problem Noted Date Diagnosed Date Resolved Date Cardiac arrest 07/13/2020 07/15/2020 Crescendo angina 11/10/2018 07/13/2021 Cardiac arrest 04/22/2018 04/22/2018 Hx of malignant neoplasm of prostate 04/22/2017 04/22/2017 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 [...] as of this encounter (statuses as of 03/08/2023) Immunizations Name Administration Dates Next Due Pneumococcal Conjugate Vacc, 13 Valent (Prevnar) 2015 Pneumococcal Conjugate Vacci ne, 7 Valent 04/01/2014 Pneumococcal Polysaccharide PPV23 (Pneumovax) 03/21/2013 SEASONAL INFLUENZA, PF, 6 M & Above, IM , (FLULAVAL or FLUZONE) 03/09/2020,02/17/2019,04/22/2018 Seasonal Influenza Virus Vac cine, Unspecified Formulation 01/30/2022,01/13/2021,03/09/2020,02/17,04/22/2018,04/22/2017,03/21/2013 Seasonal Influenza, Quadriva lent Hd (Fluzone Hd) 01/30/2022,01/13/2021 Seasonal Influenza, Quadriva lent, No Preserve, IM [...] drink = 0.6 oz pur e alcohol) Sex and Gender Information Value Date Recorded Sex Assigned at Not on file Gender Identity Not on file Sexual Orientation Not on file Job Start Date Occupation Industry Not on file Not on file Not on file documented as of this encounter Miscellaneous Notes * Telephone Encounter - Laith Fulton RP - 03/08/2023 5:33 PM EDTRefused Prescriptions: Disp Refills Clopidogrel Bisulfate 75 MG Oral Tablet (p*90 Tab*3 Sig: take 1tablet by mouth once dailyRefused By: LAITH FULTON LReason for Refusal: Too soonReason for RefusalComment: 1 year sent 02/23/23 documented in this encounter Plan of Treatment Upcoming Encounters Date Type Department Care Team (Late st Contact Info) Description 03/28/2023 8:00 AM EST [facility] [address] [place] [address] Roslyn Gale DO [address] [place] [address] 04/26/2023 9:00 AM EST Cardiac Studies Cardiology, [facility] [address] [place] [address] Katherine Kurtz [facility] [address] [facility] [place] [address] 05/22/2023 8:15 AM EST Office Visit Urology [place] [address] [place] [address] [place] [address] Ronny Mackey Jr., MD [address] [place] [address] [place] [address] Health Maintenance Due Date Last Done Comments COVID-19 Vaccine (#1) 06/07/1941 Zoster Vaccines (2 of 3) 07/12/2014 05/17/2014 Depression Screening 11/22/2020 11/23/2019 Influenza Vaccine (FLU shot) (#1) 2023 01/30/2022, 01/30/2022, 01/13/2021, Additional history exists CKD PHOS USE SMARTSET 72301 01/23/202301/11, 01/13/2021, 03/04/2019, Additional history exists GFR 05/11/2023 11/09/2022, 10/11, 10/05/2022, Additional history exists Albumin/Creatinine Ratio 10/06/2023 023, 04/15/2017, 11/10/2014 CKD HGB USE SMARTSET 81405 10/25/202310/24, 10/24/2022, 10/05/2022, Additional history exists TSH 10/25/2023 10/24/2022, 10/11, 10/05/2022, Additional history exists DTaP,Tdap,and Td Vaccines (2 - Td or Tdap) 04/12/2024 04/12/2014 Pneumococcal Vaccine: 65+ Years Completed 2015, 03/21/2013 GARDASIL-HPV IMMUNIZATION SERIES Aged Out No longer [...] as of this encounter Visit Diagnoses Diagnosis Cardiomyopathy, ischemic Other specified forms of chronic ischemic heart disease 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 No Code Status History Code Status Date Activated Date Inactivated Comments Full Code 07/27/2014 1:43 PM 07/28/2014 2:00 PM This order reflects the patients wishes and were consensually agreed upon. Question Answer Comments Discussion of Advance Directives occurred with: Not Discussed Does the patient have a Living Will? No Does the patient have Health Care Power of Grocery Team Member? No Full Code 07/21/2014 11:34 AM 07/21/2014 10:34 PM Thi s order reflects the patients wishes and were consensually agreed upon. Question Answer Comments Discussion of Advance Directives occurred with: Not Discussed Does the patient have a Living Will? No Does the patient have Health Care Power of Grocery Team Member? No Full Code 03/14/2013 10:18 PM 03/25/2013 2:39 PM Thi s order reflects the patients wishes and were consensually agreed upon. Question Answer Comments Discussion of Advance Directives occurred with: Not Discussed Does the patient have a Living Will? No Does the patient have Health Care Power of Grocery Team Member? No Healthcare Agents on File Name Relationship Healthcare Agent Relationship Communication Jose HENDRIX Adult Child Health Audograph Operator resentative (appointed verbally by patient or by statute hierarchy) Care Teams Metal Sander Relationship Specialty Start Date End Date Roslyn Gale DO [address] [facility] [place] [address] PCP - General Family Medicine 11/10/18 documented as of this encounter
--- OUTSIDE RECORDS SUMMARY | 2023-05-18 10:50 | External Medical Summary | Summary of Care ---
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); Cardiomyopathy, ischemic Allergies Active Allergy Reactions Criticality Noted Date Comments Pantoprazole Hives 01/13/2016 Sucralfate Hives 01/13/2016 documented as of this encounter (statuses as of 03/15/2023) Medications Medication Sig Dispensed Refills Start Date End Date Status ASPIRIN 81 MG PO CHEWIndications:INTE RFACED RESULT Take 1 tablet by mouth daily 32 Tab 11 03/24/2013 Active Nitroglycerin 0.4 MG Sublingual Tablet Sublingual (Nitrostat)Indicatio ns:Cardiac arrest (HCC),Atherosclerosi s of [place] coronary artery of [place] heart with stable angina pectoris (HCC),Crescendo angina (HCC) PLACE 1 TABLET UNDER THE TONGUE EVERY 5 MINUTES NEEDED, UP TO 3 DOSES PER EPISODE. 25 Tablet 3 05/11/2021 Active Amiodarone HCl 200 MG Oral Tablet [...] Oral Tablet (pLAVix)Indications: Cardiomyopathy, ischemic,Atheroscler osis of [place] coronary artery of [place] heart with stable angina pectoris (HCC) take 1 tablet by mouth once daily 90 Tablet 3 02/23/2023 Active Levothyroxine Sodium 75 MCG Oral Tablet (Levoxyl)Indications :Acquired hypothyroidism take 1 tablet by mouth every morning AT LEAST 30 MINUTES PRIOR TO BREAKFAST/OT HER MEDS 90 Tablet 3 02/23/2023 Active Metoprolol Succinate ER 50 MG Oral Tablet Extended Release 24 Hour (toPROL XL)Indications:Ather osclerosis of [place] coronary artery of [place] heart with stable angina pectoris (HCC),Cardiomyopathy , ischemic take 1 tablet by mouth twice a day 180 Tablet 2 03/15/2023 Active Metoprolol Succinate ER 50 MG Oral Tablet Extended Release 24 Hour (toPROL XL)Indications:Ather osclerosis of [place] coronary artery of [place] heart with stable angina pectoris (HCC),Cardiomyopathy , ischemic Take by mouth 1 Tablet in the morning AND 1 Tablet before bedtime. 180 Tablet 4 01/24/2022 3 Discontinued documented as of this encounter (statuses as of 03/15/2023) Active Problems Problem Noted Date Diagnosed Date [...] systolic, due to CAD 07/13/2020 Atherosclerosis of [place] co ronary artery of [place] heart with stable angina pectoris 11/10/2018 History of cardiac arrest 11/10/2018 S/P CABG (coronary artery bypass graft) 04/22/20 17 Statin intolerance 10/23/2016 Gastroesophageal reflux disease with esophagitis 2015 HTN, goal below 130/80 2015 BPH without obstruction/lower urinary tract symp toms 08/20/2014 ICD (implantable cardioverter-defibrillator) in place 03/20/2013 Overview: -Cardioverter-defibrillator spot sprayer [employer], model [id number] Fortify, serial number [id number]. -Atrial lead spot sprayer [employer], model 1688TC-52 Tendril SDX, serial number [id number]. -Right ventricular defibrillator lead spot sprayer [employer], model 7122Q-65 Durata, serial number [id number]. Dyslipidemia, goal LDL below 70 03/18/2013 Acquired hypothyroidism 03/18/2013 Cardiomyopathy, ischemic 03/15/2013 documented as of this encounter (statuses as of 03/15/2023) Resolved Problems Problem Noted Date Diagnosed Date [...] as of this encounter (statuses as of 03/15/2023) Immunizations Name Administration Dates Next Due Pneumococcal [...] encounter Miscellaneous Notes * Telephone Encounter - [facility] - 03/15/2023 8:34 AM EDTSigned Prescriptions: Disp Refills Metoprolol Succinate ER 50 MG Oral Tablet *180 Ta*2 Sig: take 1tablet by mouth twice a dayAuthorizing Provider: CATHLEEN GALE User: CLARENCE HILL documented in this encounter Plan of Treatment Upcoming Encounters Date Type Department Care Team (Late st Contact Info) Description 03/28/2023 8:00 AM EST Office Visit Family Practice [address] [place] [address] Cathleen Gale DO [address] [place] [address] 04/26/2023 9:00 AM EST Cardiac Studies Cardiology, [facility] [address] [place] [address] [facility] [address] [place] [address] 05/22/2023 8:15 AM EST Office Visit Urology [place] [address] [place] [address] [place] [address] Ronny Mackey Jr., MD [address] [place] [address] [place] [address] Health Maintenance Due Date Last Done Comments COVID-19 Vaccine (#1) 06/07/1941 Zoster Vaccines (2 of 3) 07/12/2014 05/17/2014 Depression Screening 11/22/2020 11/23/2019 Influenza Vaccine (FLU shot) (#1) 2023 01/30/2022, 01/30/2022, 01/13/2021, Additional history exists CKD PHOS USE SMARTSET 82715 01/23/202301/11, 01/13/2021, 03/04/2019, Additional history exists GFR 05/11/2023 11/09/2022, 10/11, 10/05/2022, Additional history exists Albumin/Creatinine Ratio 10/06/2023 023, 04/15/2017, 11/10/2014 CKD HGB USE SMARTSET 65600 10/25/202310/24, 10/24/2022, 10/05/2022, Additional history exists TSH [...] as of this encounter Visit Diagnoses Diagnosis 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 No Code Status History Code Status Date Activated Date Inactivated Comments Full Code 07/27/2014 1:43 PM 07/28/2014 2:00 PM This order reflects the patients wishes and were consensually agreed upon. Question Answer Comments Discussion of Advance Directives occurred with: Not Discussed Does the patient have a Living Will? No Does the patient have Health Care Power of Armor Officer? No Full Code 07/21/2014 11:34 AM 07/21/2014 10:34 PM Thi s order reflects the patients wishes and were consensually agreed upon. Question Answer Comments Discussion of Advance Directives occurred with: Not Discussed Does the patient have a Living Will? No Does the patient have Health Care Power of Armor Officer? No Full Code 03/14/2013 10:18 PM 03/25/2013 2:39 PM Thi s order reflects the patients wishes and were consensually agreed upon. Question Answer Comments Discussion of Advance Directives occurred with: Not Discussed Does the patient have a Living Will? No Does the patient have Health Care Power of Armor Officer? No Healthcare Agents on File Name Relationship Healthcare Agent Relationship Communication Jose HENDRIX Adult Child Health 411 Directory Assistance Operator resentative (appointed verbally by patient or by statute hierarchy) Care Teams Glass Cutter Helper Relationship Specialty Start Date End Date Cathleen Gale DO [address] [facility] [place] [address] PCP - General Family Medicine 11/10/18 documented as of this encounter
--- OUTSIDE RECORDS SUMMARY | 2023-05-18 10:50 | External Medical Summary | Summary of Care ---
Author Name Unknown Organization [facility] Address [address] [place] [address] Phone [phone] Care Team Providers Care Mold Blower Name Role Phone Cathleen Gale DO Primary Care Provider [phone]- [phone] Reason for Visit * Reason Comments eRx-Medication Refill Encounter Details Date Type Department Care Team Description 02/22/[address] [facility] [place] [address] 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) Allergies Active Allergy Reactions Severity Noted Date Comments Pantoprazole Hives 01/13/2016 Sucralfate Hives 01/13/2016 documented as of this encounter (statuses as of 02/23/2023) Medications Medication Sig Dispensed Refills Start Date End Date Status ASPIRIN 81 MG PO CHEWIndications:INTE RFACED RESULT Take 1 tablet by mouth daily 32 Tab 11 03/24/2013 Active Nitroglycerin 0.4 MG Sublingual Tablet Sublingual (Nitrostat)Indicatio ns:Cardiac arrest (HCC),Atherosclerosi s of [place] coronary artery of [place] heart with stable angina pectoris (HCC),Crescendo angina (HCC) PLACE 1 TABLET UNDER THE TONGUE EVERY 5 MINUTES NEEDED, UP TO 3 DOSES PER EPISODE. 25 Tablet 3 05/11/2021 Active Metoprolol Succinate ER 50 MG Oral Tablet Extended Release 24 Hour (toPROL XL)Indications:Ather osclerosis of [place] coronary artery of [place] heart with stable angina pectoris (HCC),Cardiomyopathy , [...] Oral Tablet (pLAVix)Indications: Cardiomyopathy, ischemic,Atheroscler osis of [place] coronary artery of [place] heart with stable angina pectoris (HCC) take 1 tablet by mouth once daily 90 Tablet 3 02/23/2023 Active Clopidogrel Bisulfate 75 MG Oral Tablet (pLAVix)Indications: Cardiomyopathy, ischemic,Atheroscler osis of [place] coronary artery of [place] heart with stable angina pectoris (HCC) take 1 tablet by mouth once daily 90 Tablet 3 02/12/2022 Discontinued Levothyroxine Sodium 75 MCG Oral Tablet (Levoxyl)Indications :Acquired hypothyroidism take 1 tablet by mouth every morning AT LEAST 30 MINUTES PRIOR TO BREAKFAST/OT HER MEDS 90 Tablet 1 08/22/2022 3 Discontinued documented as of this encounter (statuses as of 02/23/2023) Active Problems Problem Noted Date Protein-calorie malnutrition 10/19/2022 VT (ventricular tachycardia) 07/13/2021 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 stage 3 chronic kidney disease 07/13/2021 VF (ventricular fibrillation) 05/11/2021 S/P drug eluting coronary stent placemen t 05/11/2021 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 CHF, NYHA class 3 and CKD stage 3 09/20/2020 Overview: Per CKD protocol Heart failure, systolic, due to CAD 07/2020 Atherosclerosis of [place] co ronary artery of [place] heart with stable angina pectoris 11/10/2018 History of cardiac arrest 11/10/2018 S/P CABG (coronary artery bypass graft) 04/22/2017 Statin intolerance 10/23/2016 Gastroesophageal reflux disease with eso phagitis 2015 HTN, goal below 130/80 2015 BPH without obstruction/lower urinary tr act symptoms 08/20/2014 ICD (implantable cardioverter-defibrilla tor) in place 03/20/2013 Overview: -Cardioverter-defibrillator equipment services associate [employer], model [id number] Fortify, serial number [id number]. -Atrial lead equipment services associate [employer], model 1688TC-52 Tendril SDX, serial number [id number]. -Right ventricular defibrillator lead equipment services associate [employer], model 7122Q-65 Durata, serial number [id number]. 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 stage 3 chronic kidney disease 04/22/2017 09/22/2020 Overview: Per CKD protocol Gastroesophageal reflux disease without esophagi tis 08/04/2015 2015 HTN, goal below 140/90 04/04/2015 6 Kidney disease, chronic, stage III (GFR 30-59 ml /min) 12/13/2014 08/23/2017 Overview: Per CKD protocol #1 Prostate cancer 08/20/2014 07/13/2021 CAD (coronary artery disease) 07/21/2014 Stable angina 04/22/2014 2015 Heart failure, systolic, due to CAD 04/03/2013 04/22/2017 Atrial flutter 03/23/2013 06/19/2016 HTN (hypertension) 03/18/2013 04/04/2015 Pharyngeal dysphagia 03/18/2013 2015 Electrolyte and fluid disorder 03/15/2013 0 08/04/2015 Pulmonary edema cardiac cause 03/15/2013 Arrhythmia 03/15/2013 08/04/2015 Elevated liver enzymes 03/15/2013 7 Metabolic acidosis 03/15/2013 08/04/2015 Cardiac arrest 03/14/2013 10/23/2016 Respiratory failure, acute 03/14/201304/04 documented as of this encounter (statuses as of 02/23/2023) Immunizations Name Administration Dates Next Due Pneumococcal [...] drink = 0.6 oz pur e alcohol) Food Insecurity Answer Date Recorded Within the past 12 months, y ou worried that your food would run out before you got money to buy more. Never true 05/18/2019 Within the past 12 months, t he food you bought just didn't last and you didn't have money to get more. Never true 05/18/2019 Sex Assigned at Date Recorded Not on file Job Start Date Occupation Industry Not on file Not on file Not on file documented as of this encounter Miscellaneous Notes * Telephone Encounter - Florentin Balderrama RPh - 02/23/2023 8:48 AM EDTSigned Prescriptions: Disp Refills Clopidogrel Bisulfate 75 MG Oral Tablet (p*90 Tab*3 Sig: take 1 tablet by mouth once dailyAuthorizing Provider: CATHLEEN GALE User: FLORENTIN BALDERRAMA- documented in this encounter Plan of Treatment Upcoming Encounters Date Type Specialty Care Team Description 03/28/2023 Office Visit Family Medicine Cathleen Gale DO [address] [facility] [place] [address] 04/26/2023 Cardiac Studies Cardiology [facility], [facility] [address] [place] [address] 04/26/2023 Office Visit Cardiology Alexis Danielle DO [address] [place] [address] 05/22/2023 Office Visit Urology Key Sanz, Ronny Esquivel MD [address] [place] [address] Health Maintenance Due Date Last Done Comments COVID-19 Vaccine (#1) 06/07/1941 Zoster Vaccines (2 of 3) 07/12/2014 05/17/2014 Depression Screening 11/22/2020 11/23/2019 Influenza Vaccine (FLU shot) (#1) 2023 01/30/2022, 01/30/2022, 01/13/2021, Additional history exists CKD PHOS USE SMARTSET 09185 01/23/202301/11, 01/13/2021, 03/04/2019, Additional history exists GFR 05/11/2023 11/09/2022, 10/11, 10/05/2022, Additional history exists Albumin/Creatinine Ratio 10/06/2023 023, 04/15/2017, 11/10/2014 CKD HGB USE SMARTSET 77384 10/25/202310/24, 10/24/2022, 10/05/2022, Additional history exists TSH [...] of chronic ischemic heart disease 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 No Code Status History Code Status Date Activated Date Inactivated Comments Full Code 07/27/2014 1:43 PM 07/28/2014 2:00 PM This order reflects the patients wishes and were consensually agreed upon. Question Answer Comments Discussion of Advance Directives occurred with: Not Discussed Does the patient have a Living Will? No Does the patient have Health Care Power of Grit Blaster? No Full Code 07/21/2014 11:34 AM 07/21/2014 10:34 PM Thi s order reflects the patients wishes and were consensually agreed upon. Question Answer Comments Discussion of Advance Directives occurred with: Not Discussed Does the patient have a Living Will? No Does the patient have Health Care Power of Grit Blaster? No Full Code 03/14/2013 10:18 PM 03/25/2013 2:39 PM Thi s order reflects the patients wishes and were consensually agreed upon. Question Answer Comments Discussion of Advance Directives occurred with: Not Discussed Does the patient have a Living Will? No Does the patient have Health Care Power of Grit Blaster? No Healthcare Agents on File Name Relationship Healthcare Agent Relationship Communication Jose HENDRIX Adult Child Health Casino Change Attendant resentative (appointed verbally by patient or by statute hierarchy) Care Teams Mold Blower Relationship Specialty Start Date End Date Cathleen Gale DO [address] [facility] [place] [address] PCP - General Family Medicine 7/1/19 documented as of this encounter
--- OUTSIDE RECORDS SUMMARY | 2023-05-18 10:50 | External Medical Summary ---
Author Name Unknown Address Unknown Organization K01:[facility] [place] - [address] [place] [address] Laboratory Report Ordering Provider Test Date Status CATHLEENGREENFIELD 04/08/2023 11:05:20 Final Observation Date Value Abnormality Reference (Units ) Status TSH 04/08/2023 11:05:20 16.50 Above high normal 0. 27-4.20 (uIU/mL) Final Performing Location [facility] [place] - [address] [place] [address]
--- OUTSIDE RECORDS SUMMARY | 2023-05-18 10:50 | External Medical Summary | Summary of Care ---
Author Name Unknown Organization [facility] Address [address] [place] [address] Phone [phone] Care Team Providers Care Jacquard Twine Polisher Operator Name Role Phone Roslyn Gale DO Primary Care Provider [phone]- [phone] Encounter Details Date Type Department Care Team Description 12/31/2022 Telephone Cardiology, [facility] [address] [facility] [place] [address] Candace Adhikari CRNP [address] [facility] [place] [address] Allergies Active Allergy Reactions Severity Noted Date Comments Pantoprazole Hives 01/13/2016 Sucralfate Hives 01/13/2016 documented as of this encounter (statuses as of 01/07/2023) Medications Medication Sig Dispensed Refills Start Date End Date Status ASPIRIN 81 MG PO CHEWIndications:INTE RFACED RESULT Take 1 tablet by mouth daily 32 Tab 11 03/24/2013 Active Nitroglycerin 0.4 MG Sublingual Tablet Sublingual (Nitrostat)Indicatio ns:Cardiac arrest (HCC),Atherosclerosi s of [place] coronary artery of [place] heart with stable angina pectoris (HCC),Crescendo angina (HCC) PLACE 1 TABLET UNDER THE TONGUE EVERY 5 MINUTES NEEDED, UP TO 3 DOSES PER EPISODE. 25 Tablet 3 05/11/2021 Active Metoprolol Succinate ER 50 MG Oral Tablet Extended Release 24 Hour (toPROL XL)Indications:Ather osclerosis of [place] coronary artery of [place] heart with stable angina pectoris (HCC),Cardiomyopathy , ischemic Take by mouth 1 Tablet in the morning AND 1 Tablet before bedtime. 180 Tablet 4 01/24/2022 Active Clopidogrel Bisulfate 75 MG Oral Tablet (pLAVix)Indications: Cardiomyopathy, ischemic,Atheroscler osis of [place] coronary artery of [place] heart with stable angina pectoris (HCC) take 1 tablet by mouth once daily 90 Tablet 3 02/12/2022 Active Amiodarone HCl 200 MG Oral Tablet [...] the morning. 90 Tablet 3 05/24/2022 Active Levothyroxine Sodium 75 MCG Oral Tablet (Levoxyl)Indications :Acquired hypothyroidism take 1 tablet by mouth every morning AT LEAST 30 MINUTES PRIOR TO BREAKFAST/OT HER MEDS 90 Tablet 1 08/22/2022 Active Docusate Sodium 100 MG Oral Capsule (Colace)Indications: Constipation, unspecified constipation type Take 1 Capsule by mouth every night at bedtime. 90 Capsule 3 10/19/2022 Active Torsemide 10 MG Oral Tablet (Demadex) Take 0.5 Tablets by mouth in the morning. 90 Tablet 3 10/24/2022 Active Isosorbide Mononitrate ER 30 MG Oral Tablet Extended Release 24 Hour (Imdur)Indications:H eart failure, systolic, due to CAD (HCC) Take 1 Tablet by mouth in the morning. 90 Tablet 3 10/26/2022 Active Lisinopril 2.5 MG Oral Tablet (Prinivil) Take 1 Tablet by mouth in the morning. 90 Tablet 3 10/26/2022 Active Polyethylene Glycol 3350 17 GM/SCOOP Oral Powder (MiraLax)Indications :Change in bowel function Take 17 g by mouth in the morning. 850 g 1 06/29/2022 3 Discontinued Famotidine 20 MG Oral Tablet (Pepcid) Take 1 Tablet by mouth daily. 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, model [id number] Fortify, serial number [id number]. -Atrial lead container coordinator [employer], model 1688TC-52 Tendril SDX, serial number [id number]. -Right ventricular defibrillator lead container coordinator [employer], model 7122Q-65 Durata, serial number [id number]. Dyslipidemia, goal LDL below 70 03/18/20 13 Acquired hypothyroidism 03/18/2013 Cardiomyopathy, ischemic 03/15/2013 documented as of this encounter (statuses as of 01/07/2023) Resolved Problems Problem Noted Date Resolved Date [...] as of this encounter (statuses as of 01/07/2023) Immunizations Name Administration Dates Next Due Pneumococcal Conjugate Vacc, 13 Valent (Prevnar) 2015 Pneumococcal Conjugate Vacci ne, 7 Valent 04/01/2014 Pneumococcal Polysaccharide PPV23 (Pneumovax) 03/21/2013 Seasonal Influenza Virus Vac cine, Unspecified Formulation 01/30/2022,01/13/2021,03/09/2020,02/17,04/22/2018,04/22/2017,03/21/2013 Seasonal Influenza, PF, 6 mo ns & Above, IM , (Flulaval) 03/09/2020,02/17/2019,04/22/2018 Seasonal Influenza, Quadriva lent Hd (Fluzone [...] encounter Miscellaneous Notes * Telephone Encounter - Paola Meeks CMA - 01/03/2023 11:55 AM EDT Attempted to contact patient by phone, no answer. Left brief message on unidentified VM for patient to return call. * Telephone Encounter - WILLOW Hernandez - 12/31/2022 10:17 AM EDT Echocardiogram reviewed. LVEF remains severely reduced at less than 20%. There is akinesis with scarring of the inferior posterior and inferoseptal comer severe diffuse hypokinesis other segments. Dilated IVC with a moderate left pleural effusion. Please call the patient in follow-up regarding volume status and home blood pressure readings. May need to increase torsemide to 10 mg daily x3 days. He has a follow-up with Dr. Danielle on 01/07. I would like him to keep this appointment. Will need todiscuss possible upgrade to Bi V ICD. (Patient has an ICD due to history of card VFib arrest in 2009). WILLOW Leiva documented in this encounter Plan of Treatment Upcoming Encounters Date Type Specialty Care Team Description 03/28/2023 Office Visit Family Medicine Roslyn Gale DO [address] [facility] [place] [address] 04/26/2023 Cardiac Studies Cardiology [facility] [place] [address] [place] [address] 04/26/2023 Office Visit Cardiology Alexis Danielle DO [address] [place] [address] 05/22/2023 Office Visit Urology Ronny Mackey Jr., MD [address] [place] [address] Health Maintenance Due Date Last Done Comments COVID-19 Vaccine (#1) 06/07/1941 Zoster Vaccines (2 of 3) 07/12/2014 05/17/2014 Depression Screening, Annual for Pts 12 and Over 11/22/2020 11/23/2019 Influenza Vaccine (FLU shot) (#1) 2023 01/30/2022, 01/30/2022, 01/13/2021, Additional history exists CKD PHOS USE SMARTSET 72277 01/23/202301/11, 01/13/2021, 03/04/2019, Additional history exists GFR 05/11/2023 11/09/2022, 10/11, 10/05/2022, Additional history exists Albumin/Creatinine Ratio 10/06/2023 023, 04/15/2017, 11/10/2014 CKD HGB USE SMARTSET 19753 10/25/202310/24, 10/24/2022, 10/05/2022, Additional history exists TSH [...] the patient have Health Care Power of Supervisor Abattoir? No Code Status History Code Status Date Activated Date Inactivated Comments Full Code 07/27/2014 1:43 PM 07/28/2014 2:00 PM This order reflects the patients wishes and were consensually agreed upon. Question Answer Comments Discussion of Advance Directives occurred with: Not Discussed Does the patient have a Living Will? No Does the patient have Health Care Power of Supervisor Abattoir? No Full Code 07/21/2014 11:34 AM 07/21/2014 10:34 PM Thi s order reflects the patients wishes and were consensually agreed upon. Question Answer Comments Discussion of Advance Directives occurred with: Not Discussed Does the patient have a Living Will? No Does the patient have Health Care Power of Supervisor Abattoir? No Full Code 03/14/2013 10:18 PM 03/25/2013 2:39 PM Thi s order reflects the patients wishes and were consensually agreed upon. Question Answer Comments Discussion of Advance Directives occurred with: Not Discussed Does the patient have a Living Will? No Does the patient have Health Care Power of Supervisor Abattoir? No Healthcare Agents on File Name Relationship Healthcare Agent Relationship Communication Jose HENDRIX Adult Child Health Apparel Designer resentative (appointed verbally by patient or by statute hierarchy) Care Teams Jacquard Twine Polisher Operator Relationship Specialty Start Date End Date Roslyn Gale, [address] [facility] [place] [address] PCP - General Family Medicine 11/10/18 documented as of this encounter
--- OUTSIDE RECORDS SUMMARY | 2023-05-18 10:50 | External Medical Summary | Summary of Care ---
Author Name Unknown Organization [facility] Address [address] [place] [address] Phone [phone] Care Team Providers Care Associate Professor Of Mathematics Name Role Phone Cathleen Gale DO Primary Care Provider [phone]- [phone] Reason for Visit * Reason Comments eRx-Medication Refill Encounter Details Date Type Department Care Team Description 02/22/2023 Refill Family Practice [facility] [place] [address] [facility] [place] [address] Cathleen Gale DO [address] [place] [address] Acquired hypothyroidism Allergies Active Allergy Reactions Severity Noted Date Comments Pantoprazole Hives 01/13/2016 Sucralfate Hives 01/13/2016 documented as of this encounter (statuses as of 02/23/2023) Medications Medication Sig Dispensed Refills Start Date End Date Status ASPIRIN 81 MG PO CHEWIndications:INTE RFACED RESULT Take 1 tablet by mouth daily 32 Tab 11 03/24/2013 Active Nitroglycerin 0.4 MG Sublingual Tablet Sublingual (Nitrostat)Indicatio ns:Cardiac arrest (HCC),Atherosclerosi s of [place] coronary artery of [place] heart with stable angina pectoris (HCC),Crescendo angina (HCC) PLACE 1 TABLET UNDER THE TONGUE EVERY 5 MINUTES NEEDED, UP TO 3 DOSES PER EPISODE. 25 Tablet 3 05/11/2021 Active Metoprolol Succinate ER 50 MG Oral Tablet Extended Release 24 Hour (toPROL XL)Indications:Ather osclerosis of [place] coronary artery of [place] heart with stable angina pectoris (HCC),Cardiomyopathy , [...] Oral Tablet (pLAVix)Indications: Cardiomyopathy, ischemic,Atheroscler osis of [place] coronary artery of [place] heart with stable angina pectoris (HCC) take 1 tablet by mouth once daily 90 Tablet 3 02/23/2023 Active Levothyroxine Sodium 75 MCG Oral Tablet (Levoxyl)Indications :Acquired hypothyroidism take 1 tablet by mouth every morning AT LEAST 30 MINUTES PRIOR TO BREAKFAST/OT HER MEDS 90 Tablet 3 02/23/2023 Active Levothyroxine Sodium [...] systolic, due to CAD 07/2020 Atherosclerosis of [place] co ronary artery of [place] heart with stable angina pectoris 11/10/2018 History of cardiac arrest 11/10/2018 S/P CABG (coronary artery bypass graft) 04/22/2017 Statin intolerance 10/23/2016 Gastroesophageal reflux disease with eso phagitis 2015 HTN, goal below 130/80 2015 BPH without obstruction/lower urinary tr act symptoms 08/20/2014 ICD (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, model [id number] Fortify, serial number [id number]. -Atrial lead drop clipper [employer], model 1688TC-52 Tendril SDX, serial number [id number]. -Right ventricular defibrillator lead drop clipper [employer], model 7122Q-65 Durata, serial number [id number]. Dyslipidemia, goal LDL below 70 03/18/20 13 [...] Encounter - Florentin Balderrama RPh - 02/23/2023 8:50 AM EDTSigned Prescriptions: Disp Refills Levothyroxine Sodium 75 MCG Oral Tablet (L*90 Tab*3 Sig: take 1tablet by mouth every morning AT LEAST 30 MINUTES PRIOR TO BREAKFAST/OTHER MEDSAuthorizing Provider: CATHLEEN GALE User: FLORENTIN BALDERRAMA documented in this encounter Plan of Treatment Upcoming Encounters Date Type Specialty Care Team Description 03/28/2023 Office Visit Family Medicine Cathleen Gale DO [address] [facility] [place] [address] 04/26/[address] [facility] [place] [address] [place] [address] 04/26/2023 Office Visit Cardiology Alexis Danielle DO [address] [place] [address] 05/22/2023 Office Visit Urology Key Sanz, Ronny Esquivel MD [address] [place] [address] Health Maintenance Due Date Last Done Comments COVID-19 Vaccine (#1) 06/07/1941 Zoster Vaccines (2 of 3) 07/12/2014 05/17/2014 Depression Screening 11/22/2020 11/23/2019 Influenza Vaccine (FLU shot) (#1) 2023 01/30/2022, 01/30/2022, 01/13/2021, Additional history exists CKD PHOS USE SMARTSET 00993 01/23/202301/11, 01/13/2021, 03/04/2019, Additional history exists GFR 05/11/2023 11/09/2022, 10/11, 10/05/2022, Additional history exists Albumin/Creatinine Ratio 10/06/2023 023, 04/15/2017, 11/10/2014 CKD HGB USE SMARTSET 89132 10/25/202310/24, 10/24/2022, 10/05/2022, Additional history exists TSH [...] of this encounter Visit Diagnoses Diagnosis Acquired hypothyroidism Unspecified hypothyroidism documented in this encounter Advance Directives Latest [...] the patient have Health Care Power of Freezer Person? No Code Status History Code Status Date Activated Date Inactivated Comments Full Code 07/27/2014 1:43 PM 07/28/2014 2:00 PM This order reflects the patients wishes and were consensually agreed upon. Question Answer Comments Discussion of Advance Directives occurred with: Not Discussed Does the patient have a Living Will? No Does the patient have Health Care Power of Freezer Person? No Full Code 07/21/2014 11:34 AM 07/21/2014 10:34 PM Thi s order reflects the patients wishes and were consensually agreed upon. Question Answer Comments Discussion of Advance Directives occurred with: Not Discussed Does the patient have a Living Will? No Does the patient have Health Care Power of Freezer Person? No Full Code 03/14/2013 10:18 PM 03/25/2013 2:39 PM Thi s order reflects the patients wishes and were consensually agreed upon. Question Answer Comments Discussion of Advance Directives occurred with: Not Discussed Does the patient have a Living Will? No Does the patient have Health Care Power of Freezer Person? No Healthcare Agents on File Name Relationship Healthcare Agent Relationship Communication Jose HENDRIX Adult Child Health Wildlife Control Agent resentative (appointed verbally by patient or by statute hierarchy) Care Teams Associate Professor Of Mathematics Relationship Specialty Start Date End Date Cathleen Gale DO [address] [facility] [place] [address] PCP - General Family Medicine 11/10/18 documented as of this encounter
--- OUTSIDE RECORDS SUMMARY | 2023-05-18 10:50 | External Medical Summary | Summary of Care ---
Author Name Unknown Organization [facility] Address [address] [place] [address] Phone [phone] Care Team Providers Care Clay Dry Press Operator Name Role Phone GaleRoslyn Primary Care Provider [phone]- [phone] Reason for Visit * Reason Onset Date Comments FYI 01/28/2023 Encounter Details Date Type Department Care Team Description 01/28/2023 Telephone Urology Sherman Coleman [address] [place] [address] [place] [address] Ronny Mackey Jr., MD [address] [place] [address] [place] [address] FYI Allergies Active Allergy Reactions Severity Noted Date Comments Pantoprazole Hives 01/13/2016 Sucralfate Hives 01/13/2016 documented as of this encounter (statuses as of 01/31/2023) Medications Medication Sig Dispensed Refills Start Date End Date Status ASPIRIN 81 MG PO CHEWIndications:INTERF ACED RESULT Take 1 tablet by mouth daily 32 Tab 11 03/24/2013 Active Nitroglycerin 0.4 MG Sublingual Tablet Sublingual (Nitrostat)Indications :Cardiac arrest (HCC),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 25 Tablet 3 05/11/2021 Active Metoprolol Succinate ER 50 MG Oral Tablet Extended Release 24 Hour (toPROL XL)Indications:Atheros clerosis [place] coronary artery [place] heart with stable angina pectoris (HCC),Cardiomyopathy, ischemic Take by mouth 1 Tablet in the morning AND 1 Tablet before bedtime. 180 Tablet 4 01/24/2022 Active Clopidogrel Bisulfate 75 MG Oral Tablet (pLAVix)Indications:Ca rdiomyopathy, ischemic,Atheroscleros is [place] coronary artery [place] heart with stable angina pectoris (HCC) take [...] MINUTES PRIOR TO BREAKFAST/OTHER MEDS 90 Tablet 1 08/22/2022 Active Docusate [...] (Imdur)Indications:Hea rt failure, systolic, due to CAD (HCC) Take 1 Tablet by mouth in the morning. 90 Tablet 3 10/26/2022 Active Lisinopril 2.5 MG Oral Tablet (Prinivil) Take 1 Tablet by mouth in the morning. 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, model [id number] Fortify, serial number [id number]. -Atrial lead retail event coordinator [employer], model 1688TC-52 Tendril SDX, serial number [id number]. -Right ventricular defibrillator lead retail event coordinator [employer], model 7122Q-65 Durata, serial number [id number]. Dyslipidemia, goal LDL below 70 03/18/20 13 Acquired hypothyroidism 03/18/2013 Cardiomyopathy, ischemic 03/15/2013 documented as of this encounter (statuses as of 01/31/2023) Resolved Problems Problem Noted Date Resolved Date [...] as of this encounter (statuses as of 01/31/2023) Immunizations Name Administration Dates Next Due Pneumococcal [...] encounter Miscellaneous Notes * Telephone Encounter - Ronny Mackey Jr., MD - 01/28/2023 10:02 AM EDT He can be best managed in the ER for his complex collection of symptoms and problems not in the Urology office. * Telephone Encounter - RONIT Antunez ASSIST - 01/28/2023 9:51 AM EDT Patient was transferred to us by call center, he was calling in regards to urinary retention, SOB. He has congested heart failure and was concern, with the fluid retention. I suggested he go to the ER for treatment and for a possible cath, but with him saying he was SOB and his heart issues I felt that was the best option. His Son Agreed. documented in this encounter Plan of Treatment Upcoming Encounters Date Type Specialty Care Team Description 03/28/2023 Office Visit Family Medicine Roslyn Gale DO [address] [facility] [place] [address] 04/26/2023 Cardiac Studies Cardiology Katherine Kurtz [address] [place] [address] 04/26/2023 Office Visit Cardiology Alexis Danielle DO [address] [place] [address] 05/22/2023 Office Visit Urology Key Sanz, Ronny Esquivel MD [address] [facility] [place] [address] [place] [address] Health Maintenance Due Date Last Done Comments COVID-19 Vaccine (#1) 06/07/1941 Zoster Vaccines (2 of 3) 07/12/2014 05/17/2014 Depression Screening 11/22/2020 11/23/2019 Influenza Vaccine (FLU shot) (#1) 2023 01/30/2022, 01/30/2022, 01/13/2021, Additional history exists CKD PHOS USE SMARTSET 96155 01/23/202301/11, 01/13/2021, 03/04/2019, Additional history exists GFR 05/11/2023 11/09/2022, 10/11, 10/05/2022, Additional history exists Albumin/Creatinine Ratio 10/06/2023 023, 04/15/2017, 11/10/2014 CKD HGB USE SMARTSET 31347 10/25/202310/24, 10/24/2022, 10/05/2022, Additional history exists TSH [...] the patient have Health Care Power of Lens Gauger? No Code Status History Code Status Date Activated Date Inactivated Comments Full Code 07/27/2014 1:43 PM 07/28/2014 2:00 PM This order reflects the patients wishes and were consensually agreed upon. Question Answer Comments Discussion of Advance Directives occurred with: Not Discussed Does the patient have a Living Will? No Does the patient have Health Care Power of Lens [place]? No Full Code 07/21/2014 11:34 AM 07/21/2014 10:34 PM Thi s order reflects the patients wishes and were consensually agreed upon. Question Answer Comments Discussion of Advance Directives occurred with: Not Discussed Does the patient have a Living Will? No Does the patient have Health Care Power of Lens Gauger? No Full Code 03/14/2013 10:18 PM 03/25/2013 2:39 PM Thi s order reflects the patients wishes and were consensually agreed upon. Question Answer Comments Discussion of Advance Directives occurred with: Not Discussed Does the patient have a Living Will? No Does the patient have Health Care Power of Lens Gauger? No Healthcare Agents on File Name Relationship Healthcare Agent Relationship Communication Jose HENDRIX Adult Child Health Head Neck Surgeon resentative (appointed verbally by patient or by statute hierarchy) Care Teams Clay Dry Press Operator Relationship Specialty Start Date End Date Roslyn Gale DO [address] [facility] [place] [address] PCP - General Family Medicine 11/10/18 documented as of this encounter
--- OUTSIDE RECORDS SUMMARY | 2023-05-18 10:50 | External Medical Summary ---
Author Name Unknown Address Unknown Organization K01:[facility] [address] [place] [address] Laboratory Report Ordering Provider Test Date Status GIN CONNOLLY 04/08/2023 11:05:20 Final Observation Date Value Abnormality Reference (Units ) Status Phosphate 04/08/2023 11:05:20 2.7 2.5-4.8 (m g/dL) Final Performing Location [facility] - [address] [place] [address]
--- OUTSIDE RECORDS SUMMARY | 2023-05-18 10:50 | External Medical Summary ---
Author Name Unknown Address Unknown Organization [id number]:[facility] [place] - [address] [place] [address] Laboratory Report Ordering Provider Test Date Status GIN CONNOLLY 04/08/2023 11:05:20 Final Observation Date Value Abnormality Reference (Units ) Status Sobia cells [Presence] in Blood by Light microscopy 04/08/2023 11:05:20 Many Abnormal None Seen Final Performing Location [facility] - [address] [place] [address]
--- OUTSIDE RECORDS SUMMARY | 2023-05-18 10:50 | External Medical Summary ---
Author Name Unknown Address Unknown Organization K01:[facility] [place] - [address] [place] [address] [place] [address] Laboratory Report Ordering Provider Test Date Status GIN CONNOLLY 04/08/2023 11:05:20 Final Observation Date Value Abnormality Reference (Units ) Status BUN 04/08/2023 11:05:20 11 6-20 (mg/dL) Final Creatinine 04/08/2023 11:05:20 0.8 0.6-1.2 (mg/dL) Final Glomerular filtration rate/1.73 sq M.predicted [Volume Rate/Area] in Serum, Plasma or Blood by Creatinine-based formula (CKD-EPI) 04/08/2023 11:05:20 88 >=60 (mL/min) Final eGFR is calculated based on the CKD-EPI 2020 equation SODIUM 04/08/2023 11:05:20 135 135-146 (m mol/L) Final Potassium 04/08/2023 11:05:20 3.0 Below low normal 3.5 -5.1 (mmol/L) Final Cl 04/08/2023 11:05:20 94 Below low normal 98- 107 (mmol/L) Final CO2 04/08/2023 11:05:20 26 22-32 (mmo l/L) Final Anion gap 04/08/2023 11:05:20 15 7-15 (mmol /L) Final Glucose 04/08/2023 11:05:20 78 70-120 (mg /dL) Final Albumin 04/08/2023 11:05:20 3.3 Below low normal 3.8 -5.0 (g/dL) Final AST (Aspartate aminotransferase) 04/08/2023 11:05:20 97 Above high normal 10-50 (U/L) Final Alk Phos 04/08/2023 11:05:20 131 Above high normal 35 -130 (U/L) Final Bilirubin, Total 04/08/2023 11:05:20 2.7 Above high no rmal <=1.2 (mg/dL) Final Calcium 04/08/2023 11:05:20 8.4 8.4-10.2 ( mg/dL) Final Protein 04/08/2023 11:05:20 6.5 6.0-8.3 (g /dL) Final ALT (Alanine aminotransferase) 04/08/2023 11:05:20 68 Above high normal 10-50 (U/L) Final Performing Location LABORATORY [facility] [place] - [address] [facility] [id number]
--- OUTSIDE RECORDS SUMMARY | 2023-05-18 10:50 | External Medical Summary | Summary of Care ---
Author Name Unknown Organization [facility] Address [address] [address] Phone [phone] Care Team Providers Care Deep Well Contractor Name Role Phone Roslyn Gale DO Primary Care Provider [phone] Reason for Visit * Reason Comments Follow Up Encounter Details Date Type Department Care Team Description 01/07/2023 Office Visit Cardiology, [facility] [address] [place] [id number] Alexis Danielle DO [address] [place] [address] Heart failure, systolic, due to CAD (HCC)*; Ischemic cardiomyopathy; ICD (implantable cardioverter-defibrill ator) battery depletion; History of cardiac arrest Allergies Active Allergy Reactions Severity Noted Date Comments Pantoprazole Hives 01/13/2016 Sucralfate Hives 01/13/2016 documented as of this encounter (statuses as of 01/07/2023) Medications Medication Sig Dispensed Refills Start Date End Date Status ASPIRIN 81 MG PO CHEWIndications:INTE RFACED RESULT Take 1 tablet by mouth daily 32 Tab 11 03/24/2013 Active Nitroglycerin 0.4 MG Sublingual Tablet Sublingual (Nitrostat)Indicatio ns:Cardiac arrest (HCC),Atherosclerosi s of [place] coronary artery of [place] heart with stable angina pectoris (HCC),Crescendo angina (HCC) PLACE 1 TABLET UNDER THE TONGUE EVERY 5 MINUTES NEEDED, UP TO 3 DOSES PER EPISODE. 25 Tablet 3 05/11/2021 Active Metoprolol Succinate ER 50 MG Oral Tablet Extended Release 24 Hour (toPROL XL)Indications:Ather osclerosis of [place] coronary artery of [place] heart with stable angina pectoris (HCC),Cardiomyopathy , ischemic Take by mouth 1 Tablet in the morning AND 1 Tablet before bedtime. 180 Tablet 4 01/24/2022 Active Clopidogrel Bisulfate 75 MG Oral Tablet (pLAVix)Indications: Cardiomyopathy, ischemic,Atheroscler osis of [place] coronary artery of [place] heart with stable angina pectoris (HCC) take 1 tablet by mouth once daily 90 Tablet 3 02/12/2022 Active Amiodarone HCl 200 MG Oral Tablet (Cordarone) take 1 tablet by mouth once daily 90 Tablet 3 04/30/2022 Active Finasteride 5 MG Oral Tablet (Proscar)Indications :BPH with obstruction/lower urinary tract symptoms,Prostate cancer ([facility]) Take 1 Tablet by mouth in the [...] (Imdur)Indications:H eart failure, systolic, due to CAD ([facility]) Take 1 Tablet by mouth in the [...] systolic, due to CAD 07/[address] [place] co ronary artery of 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, model [id number] Fortify, serial number [id number]. -Atrial lead property loss insurance claim adjuster [employer], model 1688TC-52 Tendril SDX, serial number [id number]. -Right ventricular defibrillator lead property loss insurance claim adjuster [employer], model 7122Q-65 Durata, serial number [id number]. Dyslipidemia, goal LDL below 70 03/18/20 13 [...] Date Smoking Tobacco: Never Smokeless Tobacco: Never Tobacco Cessation:Counseling Given: Not Answered Alcohol Use Standard Drinks/Week Comments No 0 [...] Sign Reading Time Taken Comments Blood Pressure 120/70 01/07/2023 8:08 AM EDT Pulse 70 01/07/2023 8:08 AM EDT Temperature - - Respiratory Rate - - Oxygen Saturation 95% 01/07/2023 8:08 AM EDT Inhaled Oxygen Concentration - - Weight 55.3 kg (122 lb) 01/07/2023 8:08 AM EDT Height - - Body Mass Index 22.31 10/19/2022 6:52 AM EDT documented in this encounter Progress Notes * Alexis Danielle, DO - 01/07/2023 8:40 AM EDT Cardiology Outpatient Follow-up Jose Hendrix . is a 82 year old male who is seen for follow-up of cardiomyopathy. HPI: This is an 82-year-old male patient who had coronary artery bypass surgery in 1980 with a redo in 1999. He has also had previous PCI of a vein graft. He has had 2 cardiac arrests. The 1st was in 2009when he received his 1st ICD. He then had a 2nd arrest that was rescued by his ICD in 2020. He has been on chronic amiodarone for several years. He was admitted to the hospital in September of this year for heart failure. At that time and echocardiogram estimated his left ventricular ejection fraction lloyd 15-20%. Also since May this year he has had chronic weight loss of up to 40 lb of unknown etiology. During his hospital admission he had a CT scan completed of his chest that suggested the left atrium was massively enlarged and pressing against his esophagus. This could be the etiology as heseems to have trouble swallowing and some early satiety. As mentioned above however he has also been on amiodarone for years and could be contributing to his anorexia. He was started on thyroid medications recently. His LFTs are not really elevated. Past Medical History: Diagnosis Date BPH without obstruction/lower urinary tract symptoms 08/20/2014 CAD (coronary artery disease) Cardiac arrest ([facility]) 04/22/2018 HLD (hyperlipidemia) HTN (hypertension) INFORMATION 02/2013 cardiac arrest - hospitalized over 1 week Malignant neoplasm of prostate ([facility]) 08/20/2014 Prostate cancer ([facility]) Thyroid activity decreased TIA (transient ischemic attack) Patient Active Problem List Diagnosis Code Cardiomyopathy, ischemic I25.5 Dyslipidemia, goal LDL below 70 E78.5 Acquired hypothyroidism E03.9 ICD (implantable cardioverter-defibrillator) in place Z95.810 BPH without obstruction/lower urinary tract symptoms N40.0 Gastroesophageal reflux disease with esophagitis K21.00 HTN, goal below 130/80 I10 Statin intolerance Z78.9 S/P CABG (coronary artery bypass graft) Z95.[address] [place] coronary artery of 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, NYHA class 3 and CKD stage 3 ([facility]) I13.0, I50.20, N18.30 VF (ventricular fibrillation) ([facility]) I49.01 S/P drug eluting coronary stent placement Z95.5 VT (ventricular tachycardia) ([facility]) I47.20 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 stage 3 chronic kidney disease (HCC) I13.0, I50.20, N18.30 Protein-calorie malnutrition (HCC) E46 Past Surgical History: Procedure Laterality Date BYPASS GRAFT ANGIOGRAPHY W/LEFT HEART CATH 03/19/2013 BYPASS GRAFT ANGIOGRAPHY W/LEFT HEART CATH performed by Maribel Lion MD at [facility] [place] BYPASS GRAFT ANGIOGRAPHY W/LEFT HEART CATH 07/14/2014 BYPASS GRAFT ANGIOGRAPHY W/LEFT HEART CATH performed by Ken Haider MD at [facility] [place] CABG, ARTERIAL, FOUR OR MORE 1991 4 CARDIAC ANGIOPLASTY, PERCUTANEOUS, 1 ARTERY 07/21/2014 PTCA, CARDIAC ANGIOPLASTY, PERCUTANEOUS, 1 ARTERY performed by Ken Haider MD at [facility] [place] CARDIAC ANGIOPLASTY, PERCUTANEOUS, 1 ARTERY 07/27/2014 PTCA, CARDIAC ANGIOPLASTY, PERCUTANEOUS, 1 ARTERY performed by Ken Haider MD at [facility] [place] CORONARY ANGIOGRAPHY W/LEFT HEART CATH 03/19/2013 CORONARY ANGIOGRAPHY W/LEFT HEART CATH performed by Maribel Lion MD at [facility] [place] HEART ELECTROCONVERSION, EXTERNAL 05/20/2013 DC CARDIOVERSION performed by Samantha Hernández IV, MD at [facility] [place] INSERT/REPLACE DEFIBRILLATOR W/TRANSVERSE LEAD(S) 03/20/2013 NON-THOR ICD LEADS AND GENERATOR IMPLANT performed by Samantha Hernández IV, MD at [facility] LAPAROSCOPY; CHOLECYSTECTOMY 01/20/2018 01/20/2018 laparoscopic cholecystecomy [facility] Dr[facility] Stanton LAPAROSCOPY; CHOLECYSTECTOMY 01/20/2018 01/20/2018 laparoscopic cholecystectomy [facility] Dr[facility] Stanton REMOVAL OF APPENDIX REMOVAL OF TONSILS, UNDER AGE 12 REMOVE SMALL BLADDER STONE, SIMPLE N/A 02/29/2020 LITHOLAPAXY SIMPLE performed by Ronny Mackey Jr., MD at [facility] REOPERATION, CORONARY ARTERY BYPASS PROCEDURE OR VALVE [...] tablet by mouth daily 32 Tab 11 Metoprolol Succinate ER 50 MG Oral Tablet Extended Release 24 Hour (toPROL XL) Take by mouth 1 Tablet in the morning AND 1 Tablet before bedtime. 180 Tablet 4 Clopidogrel Bisulfate 75 MG Oral Tablet (pLAVix) take 1 tablet by mouth once daily 90 Tablet 3 Finasteride 5 MG Oral Tablet (Proscar) Take 1 Tablet by mouth in the morning. 90 Tablet 3 Rosuvastatin Calcium 5 MG Oral Tablet (Crestor) Take 1 Tablet by mouth in the morning. 90 Tablet 3 Levothyroxine Sodium 75 MCG Oral Tablet (Levoxyl) take 1 tablet by mouth every morning AT LEAST 30 MINUTES PRIOR TO BREAKFAST/OTHER MEDS 90 Tablet 1 Docusate Sodium 100 MG Oral Capsule (Colace) [...] mouth in the morning. 90 Tablet 3 Nitroglycerin 0.4 MG Sublingual Tablet Sublingual (Nitrostat) PLACE 1 TABLET UNDER THE TONGUE EVERY5 MINUTES NEEDED, UP TO 3 DOSES PER EPISODE. 25 Tablet 3 Amiodarone HCl 200 MG Oral Tablet (Cordarone) take 1 tablet by mouth once daily 90 Tablet 3 No current facility-administered medications for this visit. ROS: Review of Systems: See HPI for pertinent positives. All other review of systems is negative. PHYSICAL EXAMINATION BP 120/70 | Pulse 70 | Wt 55.3 kg (122 lb) | SpO2 95% | BMI 22.31 kg/m | BSA 1.56 m Body mass index is 22.31 kg/m. General: no acute distress and stated [...] Data Review: Latest Reference Range & Units 11/09/22 13:17 Sodium 135 - 146 mmol/L 138 Potassium 3.5 - 5.1 mmol/L 3.8 Chloride 98 - 107 mmol/L 103 CO2 22 - 32 mmol/L 23 BUN 6 - 20 mg/dL 23 (H) Creatinine 0.6 - 1.2 mg/dL 1.2 Estimated Glomerular Filtration Rate >=60 mL/min 64 Anion Gap 7 - 15 mmol/L 12 Glucose 70 - 120 mg/dL 103 Calcium 8.4 - 10.2 mg/dL 8.7 (H): Data is abnormally high Impression: Complex coronary artery disease, history of multiple coronary interventions History of CABG, 1980 with redo in 1999 Last PCI 04/2021 with KALEN x2 to SVG History of cardiac arrest x2 ~2009, s/p ICD (generator change 03/2022) History of VFib arrest with rescue from ICD, 04/2021, atypical symptoms. On amiodarone Chronic systolic CHF, LVEF 30%, 04/2021, LVEF 15-20% per echo 09/2022 CKD stage 3 Weight loss of unknown etiology possibly due to dilatation of left atrium pressing against the esophagus Plan: The patient will remain on his current medications including the amiodarone. Unfortunately, it is arisk versus benefit and if he stops the amiodarone I think he is at high risk for additional ventricular tachycardia/fibrillation. I recommended that he take nutrition supplements such as boost whichshould be easier for him to swallow. I plan follow-up again in 3 months to monitor his progress. This chart was completed in part utilizing [employer] Voice Recognition Software. Grammatical errors, random [...] a total of 30-39 minutes (exact time 39 mins) on the date of service in preparation, delivery, and documentation of the care provided to Jose R Hoffmaster Sr. excluding any time spent in theperformance of separately billed services. Alexis Danielle DO Cardiology, [facility] [address] [place] [address] 01/07/2023 documented in this encounter Nursing Notes * Hannah Arzola CMA - 01/07/2023 8:10 AM EDT Examination Room: 17 Name: Jose Chandlercarlos a [place]. Date of : (1940) Reason for Visit: 3m Interim Hospitalization(s): none Problems/Concerns: denied Chest Pain/SOB: denied chest pain, having some sob on exertion My [facility] is a way you can [...] Office Visit Family Medicine Roslyn Gale DO [address] [facility] [place] [address] 04/26/2023 Cardiac Studies [facility] [address] [place] [address] 04/26/2023 Office Visit Cardiology Alxeis Danielle DO [address] [place] [address] 05/22/2023 Office Visit Urology [place] Sanz, Ronny Esquivel MD [address] [facility] [address] [place] [address] Health Maintenance Due Date Last Done Comments COVID-19 Vaccine (#1) 06/07/1941 Zoster Vaccines (2 of 3) 07/12/2014 05/17/2014 Depression Screening, Annual for Pts 12 and Over 11/22/2020 11/23/2019 Influenza Vaccine (FLU shot) (#1) 2023 01/30/2022, 01/30/2022, 01/13/2021, Additional history exists CKD PHOS USE SMARTSET 04615 01/23/202301/11, 01/13/2021, 03/04/2019, Additional history exists GFR 05/11/2023 11/09/2022, 10/11, 10/05/2022, Additional history exists Albumin/Creatinine Ratio 10/06/2023 023, 04/15/2017, 11/10/2014 CKD HGB USE SMARTSET 93189 10/25/202310/24, 10/24/2022, 10/05/2022, Additional history exists TSH [...] Diagnoses Diagnosis Heart failure, systolic, due to CAD (HCC)- Primary Unspecified systolic heart failure Ischemic cardiomyopathy Other specified forms of chronic ischemic heart disease ICD (implantable cardioverter-defibrillator) battery depletion History of cardiac arrest Personal history of sudden cardiac arrest documented in this encounter Advance Directives Latest [...] patient have Health Care Power of Director [employer]? No Code Status History Code Status Date Activated Date Inactivated Comments Full Code 07/27/2014 1:43 PM 07/28/2014 2:00 PM This order reflects the patients wishes and were consensually agreed upon. Question Answer Comments Discussion of Advance Directives occurred with: Not Discussed Does the patient have a Living Will? No Does the patient have Health Care Power of Director [employer]? No Full Code 07/21/2014 11:34 AM 07/21/2014 10:34 PM Thi s order reflects the patients wishes and were consensually agreed upon. Question Answer Comments Discussion of Advance Directives occurred with: Not Discussed Does the patient have a Living Will? No Does the patient have Health Care Power of Director [employer]ging? No Full Code 03/14/2013 10:18 PM 03/25/2013 2:39 PM Thi s order reflects the patients wishes and were consensually agreed upon. Question Answer Comments Discussion of Advance Directives occurred with: Not Discussed Does the patient have a Living Will? No Does the patient have Health Care Power of Director [employer]ging? No Healthcare Agents on File Name Relationship Healthcare Agent Relationship Communication Jose HENDRIX Adult Child Health Credentialing Specialist resentative (appointed verbally by patient or by statute hierarchy) Care Teams Deep Well Contractor Relationship Specialty Start Date End Date Roslyn Gale DO [address] [facility] [place] [address] PCP - General Family Medicine 11/10/18 documented as of this encounter"
--- OUTSIDE RECORDS SUMMARY | 2023-05-18 10:50 | External Medical Summary | Summary of Care ---
Author Name Unknown Organization [facility] Address [address] [facility] [place] [address] Phone [phone] Care Team Providers Care Chief Guard Name Role Phone Roslyn Gale DO Primary Care Provider [phone]- [phone] Reason for Visit * Reason Comments Follow Up Encounter Details Date Type Department Care Team (Late st Contact Info) Description 04/03/2023 2:00 PM EST Office Visit Cardiology, [facility] [address] [place] [address] Alexis Danielle DO [address] [place] [address] Heart failure, systolic, due to CAD *; ICD (implantable cardioverter-defibril lator) battery depletion; Ischemic cardiomyopathy; History of cardiac arrest Allergies Active Allergy Reactions Criticality Noted Date Comments Pantoprazole Hives 01/13/2016 Sucralfate Hives 01/13/2016 documented as of this encounter (statuses as of 04/03/2023) Medications Medication Sig Dispensed Refills Start Date End Date Status ASPIRIN 81 MG PO CHEWIndications:INTE RFACED RESULT Take 1 tablet by mouth daily 32 Tab 11 03/24/2013 Active Nitroglycerin 0.4 MG Sublingual Tablet Sublingual (Nitrostat)Indicatio ns:Cardiac arrest (HCC),Atherosclerosi s of [place] coronary artery [place] heart with stable angina pectoris (HCC),Crescendo angina [...] Oral Tablet (pLAVix)Indications: Cardiomyopathy, ischemic,Atheroscler osis of [place] coronary artery of [place] heart with stable angina pectoris (HCC) take 1 tablet by mouth once daily 90 Tablet 3 02/23/2023 Active Levothyroxine Sodium 75 MCG Oral Tablet (Levoxyl)Indications :Acquired hypothyroidism take 1 tablet by mouth every morning AT LEAST 30 MINUTES PRIOR TO BREAKFAST/OTHER MEDS 90 Tablet 3 02/23/2023 Active Metoprolol Succinate ER 50 MG Oral Tablet Extended Release 24 Hour (toPROL XL)Indications:Ather osclerosis of [place] coronary artery [place] heart with stable angina pectoris (HCC),Cardiomyopathy , ischemic take 1 tablet by mouth twice a day 180 Tablet 2 03/15/2023 Active Polyethylene Glycol 3350 17 GM/SCOOP Oral Powder (Miralax) Take 17 g by mouth in the morning. 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 stage 3 chronic kidney disease 07/13/2021 VF (ventricular fibrillation) 05/11/2021 S/P drug eluting coronary stent placement 2020 Heart failure, systolic, due to CAD 07/13/2020 Atherosclerosis of [place] co ronary artery of [place] heart with stable angina pectoris 11/10/2018 History of cardiac arrest 11/10/2018 History of prostate cancer 04/22/2017 S/P CABG (coronary artery bypass graft) 04/22/20 17 Statin intolerance 10/23/2016 Gastroesophageal reflux disease with esophagitis 2015 HTN, goal below 130/80 2015 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, model [id number] Fortify, serial number [id number]. -Atrial lead global engineering manager [employer], model [id number] Tendril SDX, serial number [id number]. -Right ventricular defibrillator lead global engineering manager [employer], model [id number]-65 Durata, serial number [id number]. Dyslipidemia, goal LDL below 70 03/18/2013 Acquired hypothyroidism 03/18/2013 Cardiomyopathy, ischemic 03/15/2013 documented as of this encounter (statuses as of 04/03/2023) Resolved Problems Problem Noted Date Diagnosed Date [...] as of this encounter (statuses as of 04/03/2023) Immunizations Name Administration Dates Next Due Pneumococcal [...] Sign Reading Time Taken Comments Blood Pressure 114/66 04/03/2023 2:01 PM EST Pulse 76 04/03/2023 2:01 PM EST Temperature - - Respiratory Rate - - Oxygen Saturation - - Inhaled Oxygen Concentration - - Weight 54 kg (119 lb) 04/03/2023 2:01 PM EST Height - - Body Mass Index 21.77 03/28/2023 7:49 AM EST documented in this encounter Progress Notes * Alexis Danielle, DO - 04/03/2023 2:22 PM EST Cardiology Outpatient Follow-up Jose Chandlerkirti . is a 82 year old male who is seen for follow-up of heart failure. HPI: This is an 82-year-old male patient [...] been on chronic amiodarone for several years. His last estimated left ventricular ejection fraction was 15-20% by echocardiography earlier this year. More recently he has had weight loss and cachexia.According to his family he has lost somewhere between 30-40 lb. No abdominal pain but he does have trouble swallowing and has some early satiety. Today he is brought here by his son and [id number] in a wheelchair. This is the 1st time I have seen him in a wheelchair as he usually comes in on his own. He appears to be cachectic. No lower extremity edema or orthopnea. 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 CHF, NYHA class 3 and CKD stage 3 ([facility]) Per CKD protocol BPH without obstruction/lower urinary tract symptoms 08/20/2014 CAD (coronary artery disease) Cardiac arrest ([facility]) 04/22/2018 HLD (hyperlipidemia) HTN (hypertension) INFORMATION 02/2013 cardiac arrest - hospitalized over 1 week Malignant neoplasm of prostate ([facility]) 08/20/2014 Prostate cancer ([facility]) Thyroid activity decreased TIA (transient ischemic attack) [...] (coronary artery bypass graft) Z95.1 Atherosclerosis of [place] coronary artery [place] heart with stable angina pectoris ([facility]) I25.118 History of cardiac arrest Z86.74 Heart failure, systolic, due to CAD I50.20, I25.10 VF (ventricular fibrillation) ([facility]) I49.01 S/P drug eluting coronary stent placement Z95.5 VT (ventricular tachycardia) ([facility]) I47.20 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 stage 3 chronic kidney disease (HCC) I13.0, I50.20, N18.30 Protein-calorie malnutrition (HCC) E46 Osteoarthritis, knee M17.9 Past Surgical History: Procedure Laterality Date BYPASS GRAFT ANGIOGRAPHY W/LEFT HEART CATH 03/19/2013 BYPASS GRAFT ANGIOGRAPHY W/LEFT HEART CATH performed by Maribel Lion MD at [facility] BYPASS GRAFT ANGIOGRAPHY W/LEFT HEART CATH 07/14/2014 BYPASS GRAFT ANGIOGRAPHY W/LEFT HEART CATH performed by Ken Haider MD at [facility] CABG, ARTERIAL, FOUR OR MORE 1991 4 CARDIAC ANGIOPLASTY, PERCUTANEOUS, 1 ARTERY 07/21/2014 PTCA, CARDIAC ANGIOPLASTY, PERCUTANEOUS, 1 ARTERY performed by Ken Haider MD at [facility] CARDIAC ANGIOPLASTY, PERCUTANEOUS, 1 ARTERY 07/27/2014 PTCA, CARDIAC ANGIOPLASTY, PERCUTANEOUS, 1 ARTERY performed by Ken Haider MD at [facility] CORONARY ANGIOGRAPHY W/LEFT HEART CATH 03/19/2013 CORONARY ANGIOGRAPHY W/LEFT HEART CATH performed by Maribel Lion MD at [facility] HEART ELECTROCONVERSION, EXTERNAL 05/20/2013 DC CARDIOVERSION performed by Samantha Hernández IV, MD at [facility] INSERT/REPLACE DEFIBRILLATOR W/TRANSVERSE LEAD(S) 03/20/2013 NON-THOR ICD LEADS AND GENERATOR IMPLANT performed by Samantha Hernández IV, MD at [facility] LAPAROSCOPY; CHOLECYSTECTOMY 01/20/2018 01/20/2018 laparoscopic cholecystecomy [facility] Dr. Stanton LAPAROSCOPY; CHOLECYSTECTOMY 01/20/2018 01/20/2018 laparoscopic cholecystectomy [facility] Dr. Stanton REMOVAL OF APPENDIX REMOVAL OF TONSILS, UNDER AGE 12 REMOVE SMALL BLADDER STONE, SIMPLE N/A 02/29/2020 LITHOLAPAXY SIMPLE performed by Ronny Mackey Jr., MD at OR [facility] REOPERATION, CORONARY ARTERY BYPASS PROCEDURE [...] tablet by mouth daily 32 Tab 11 Amiodarone HCl 200 MG Oral Tablet (Cordarone) take 1 tablet by mouth once daily 90 Tablet 3 Finasteride 5 MG Oral Tablet (Proscar) Take 1 Tablet by mouth in the morning. 90 Tablet 3 Rosuvastatin Calcium 5 MG Oral Tablet (Crestor) Take 1 Tablet by mouth in the morning. 90 Tablet 3 Torsemide 10 MG Oral Tablet (Demadex) [...] by mouth once daily 90 Tablet 3 Levothyroxine Sodium 75 MCG Oral Tablet (Levoxyl) take 1 tablet by mouth every morning AT LEAST 30 MINUTES PRIOR TO BREAKFAST/OTHER MEDS 90 Tablet 3 Metoprolol Succinate ER 50 MG Oral Tablet Extended Release 24 Hour (toPROL XL) take 1 tablet by mouth twice a day 180 Tablet 2 Nitroglycerin 0.4 MG Sublingual Tablet Sublingual (Nitrostat) PLACE 1 TABLET UNDER THE TONGUE EVERY5 MINUTES NEEDED, UP TO 3 DOSES PER EPISODE. (Patient not taking: Reported on 04/03/2023) 25 Tablet 3 Docusate Sodium 100 MG Oral Capsule (Colace) Take 1 Capsule by mouth every night at bedtime. (Patient not taking: Reported on 04/03/2023) 90 Capsule 3 Polyethylene Glycol 3350 17 GM/SCOOP Oral Powder (Miralax) Take 17 g by mouth in the morning. (Patient not taking: Reported on 04/03/2023) 850 g 5 No current facility-administered medications for this visit. ROS: Review of Systems: See HPI for pertinent positives. All other review of systems is negative. PHYSICAL EXAMINATION BP 114/66 | Pulse 76 | Wt 54 kg (119 lb) | BMI 21.77 kg/m | BSA 1.54 m Body mass index is 21.77 kg/m. General: no acute distress and stated [...] Neuro: grossly normal exam Laboratory Data Review: No recent labs Impression: Complex coronary artery disease, history of [...] the esophagus, cardiac cachexia, or amiodarone toxicity Plan: I had a discussion with the patient and his family today. I think it is unlikely, but his weight loss and cachexia may be related to the amiodarone. I think it is reasonable to stop this medication even though there may be an increased risk of arrhythmias. He has not had any recent lab and today I have ordered a CBC, CMP and TSH level. He appears to be a little jaundiced today which may be from liver congestion due to heart failure, cancer and metastatic disease or amiodarone. I think consideration should be given for hospice care. I plan follow-up in the next 2-3 weeks to monitor his progress. This chart was completed in part utilizing [employer] Speech Voice Recognition Software. Grammatical errors, random word insertions, prounoun errors, and incomplete sentences are an occasional consequence of this system due to software limitations, ambient noise, and hardware issues. Any formal questions or concerns about the content, text, or information contained within the body of this dictation should be directly addressed to the provider for clarification. I spent a total of 40-54 minutes (exact time 43 mins) on the date of service in preparation, delivery, and documentation of the care provided to Josebobby Hendrix Sr. excluding any time spent in theperformance of separately billed services. Alexis Danielle DO Cardiology, [facility] [address] [facility] [place] [address] 04/03/2023 documented in this encounter Nursing Notes * José Castillo RN - 04/03/2023 1:54 PM EST Examination Room: room 16 Name: Jose Lida Ruma [place]. Date of : (1940). Reason for Visit: for follow up Interim Hospitalization(s): denies Problems/Concerns: has not been eating well and losing weight Chest Pain/SOB: denies chest pain ; but gets [facility] Discussed: Not applicable [...] Office Visit Cardiology, [facility] [address] [place] [address] Alexis Danielle DO [address] [place] [address] 04/26/2023 9:00 AM EST Cardiac Studies Cardiology, [facility] [address] [facility] [place] [address] [facility] [address] [place] [address] 05/22/2023 8:15 AM EST Office Visit [facility] [address] [place] [address] [place] [address] Ronny Mackey Jr., MD [address] [place] [address] [place] [address] 10/04/2023 7:20 AM EDT Office Visit [facility] [address] [place] [address] [place] [address] Roslyn Gale DO [address] [place] [address] Scheduled Orders Name Type Priority Associated Diagnoses Orde r Schedule CBC WITH WBC DIFFERENTIAL Lab Routine ICD (implantable cardioverter-defibrilla tor) battery depletion Ischemic cardiomyopathy Heart failure, systolic, due to CAD History of cardiac arrest Expected: 04/03/2023, Expires: 08/02/2023 COMPREHENSIVE METABOLIC PANEL Lab Routine ICD (implantable cardioverter-defibrilla tor) battery depletion Ischemic cardiomyopathy Heart failure, systolic, due to CAD History of cardiac arrest Expected: 04/03/2023, Expires: 08/02/2023 TSH Lab Routine ICD (implantable cardioverter-defibrilla tor) battery depletion Ischemic cardiomyopathy Heart failure, systolic, due to CAD History of cardiac arrest Expected: 04/03/2023, Expires: 08/02/2023 Health Maintenance Due Date Last Done Comments COVID-19 Vaccine (#1) 06/07/1941 Zoster Vaccines (2 of 3) 07/12/2014 05/17/2014 Depression Screening 11/22/2020 11/23/2019 CKD PHOS USE SMARTSET 41570 01/23/202301/11, 01/13/2021, 03/04/2019, Additional history exists GFR 05/11/2023 11/09/2022, 10/11, 10/05/2022, Additional history exists Albumin/Creatinine Ratio 10/06/2023 023, 04/15/2017, 11/10/2014 CKD HGB USE SMARTSET [id number] 10/25/202310/24, 10/24/2022, 10/05/2022, Additional history exists TSH [...] to CAD- Primary Unspecified systolic heart failure ICD (implantable cardioverter-defibrillator) battery depletion Ischemic cardiomyopathy Other specified forms of chronic ischemic heart disease History of cardiac arrest Personal history of [...] the patient have Health Care Power of Title Closer? No Code Status History Code Status Date Activated Date Inactivated Comments Full Code 07/27/2014 1:43 PM 07/28/2014 2:00 PM This order reflects the patients wishes and were consensually agreed upon. Question Answer Comments Discussion of Advance Directives occurred with: Not Discussed Does the patient have a Living Will? No Does the patient have Health Care Power of Title Closer? No Full Code 07/21/2014 11:34 AM 07/21/2014 10:34 PM Thi s order reflects the patients wishes and were consensually agreed upon. Question Answer Comments Discussion of Advance Directives occurred with: Not Discussed Does the patient have a Living Will? No Does the patient have Health Care Power of Title Closer? No Full Code 03/14/2013 10:18 PM 03/25/2013 2:39 PM Thi s order reflects the patients wishes and were consensually agreed upon. Question Answer Comments Discussion of Advance Directives occurred with: Not Discussed Does the patient have a Living Will? No Does the patient have Health Care Power of Title Closer? No Healthcare Agents on File Name Relationship Healthcare Agent Relationship Communication Jose HENDRIX Adult Child Health Med Asst resentative (appointed verbally by patient or by statute hierarchy) Care Teams Chief Guard Relationship Specialty Start Date End Date Roslyn Gale DO [address] [facility] [place] [address] PCP - General Family Medicine 11/10/18 documented as of this encounter"
--- OUTSIDE RECORDS SUMMARY | 2023-05-18 10:50 | External Medical Summary ---
Author Name Unknown Address Unknown Organization K01:[facility] [address] [place] [address] Laboratory Report Ordering Provider Test Date Status GIN CONNOLLY 04/08/2023 11:05:20 Final Observation Date Value Abnormality Reference (Units ) Status WBC, Total 04/08/2023 11:05:20 4.62 4.00-10.80 (K/uL) Final RBC 04/08/2023 11:05:20 4.39 4.50-5.25 (M/uL) Final Hemoglobin 04/08/2023 11:05:20 13.4 Below low normal 14.0-16.8 (g/dL) Final HCT 04/08/2023 11:05:20 41.7 40.0-48.4 (%) Final MCV 04/08/2023 11:05:20 95.0 82.0-99.5 (fL) Final MCH 04/08/2023 11:05:20 30.5 27.0-34.0 (pg) Final MCHC 04/08/2023 11:05:20 32.1 32.0-36.0 (g/dL) Final RDW 04/08/2023 11:05:20 19.1 11.5-15.5 (%) Final Platelets 04/08/2023 11:05:20 144 140-400 (K/uL) Final MPV 04/08/2023 11:05:20 11.4 6.6-11.1 (fL) Final Nucleated erythrocytes/100 leukocytes [Ratio] in Blood by Automated count 04/08/2023 11:05:20 0 <=0 (/100 WBCs) Final Performing Location [facility] [address] [place] [address]
--- OUTSIDE RECORDS SUMMARY | 2023-05-18 10:50 | External Medical Summary | Summary of Care ---
Author Name Unknown Organization [facility] Address [address] [place] [address] Phone [phone] Care Team Providers Care Cemetery Keeper Name Role Phone Roslyn Gale DO Primary Care Provider [phone] Reason for Visit * Reason Onset Date Comments Routine Exam Routine check up , no new or acute concerns, still having weight loss, constipation issues, weak and tired, ongoing from May Medication Administration 03/28/2023 Flu an d/or Pneumo Inj Encounter Details Date Type Department Care Team (Late st Contact Info) Description 03/28/2023 8:00 AM EST Office Visit [facility] [place] [address] [place] [address] Roslyn Gale DO [address] [place] [address] Dyslipidemia, goal LDL below 70*; Acquired hypothyroidism; Cardiomyopathy, ischemic; VF (ventricular fibrillation) (HCC); 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; 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); 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 stage 3 chronic kidney disease (HCC); Need for prophylactic vaccination and inoculation against influenza; BPH without obstruction/lower urinary tract symptoms; Gastroesophageal reflux disease with esophagitis, unspecified whether hemorrhage; History of prostate cancer Allergies Active Allergy Reactions Criticality Noted Date Comments Pantoprazole Hives 01/13/2016 Sucralfate Hives 01/13/2016 documented as of this encounter (statuses as of 03/28/2023) Medications Medication Sig Dispensed Refills Start Date End Date Status ASPIRIN 81 MG PO CHEWIndications:INTERF ACED RESULT Take 1 tablet by mouth daily 32 Tab 11 03/24/2013 Active Nitroglycerin 0.4 MG Sublingual Tablet Sublingual (Nitrostat)Indications :Cardiac arrest (HCC),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),Crescendo angina [...] Oral Tablet (pLAVix)Indications:Ca rdiomyopathy, ischemic,Atheroscleros is of [place] coronary artery of [place] heart with stable angina pectoris (HCC) take 1 tablet by mouth once daily 90 Tablet 3 02/23/2023 Active Levothyroxine Sodium 75 MCG Oral Tablet (Levoxyl)Indications:A cquired hypothyroidism take 1 tablet by mouth every morning AT LEAST 30 MINUTES PRIOR TO BREAKFAST/OTHER MEDS 90 Tablet 3 02/23/2023 Active Metoprolol Succinate ER 50 MG Oral Tablet Extended Release 24 Hour (toPROL XL)Indications:Atheros clerosis of [place] coronary artery of [place] heart with stable angina pectoris (HCC),Cardiomyopathy, ischemic take 1 tablet by mouth twice a day 180 Tablet 2 03/15/2023 Active Polyethylene Glycol 3350 17 GM/SCOOP Oral Powder (Miralax) Take 17 g by mouth in the morning. 850 g 5 03/28/2023 Active documented as of this encounter (statuses as of 03/28/2023) Active Problems Problem Noted Date Diagnosed Date Osteoarthritis, knee 03/28/2023 Protein-calorie malnutrition 10/19/2022 VT (ventricular tachycardia) 07/13/2021 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 stage 3 chronic kidney disease 07/13/2021 VF (ventricular fibrillation) 05/11/2021 S/P drug eluting coronary stent placement 2020 Heart failure, systolic, due to CAD 07/13/2020 Atherosclerosis of [place] co ronary artery of [place] heart with stable angina pectoris 11/10/2018 History of cardiac arrest 11/10/2018 History of prostate cancer 04/22/2017 S/P CABG (coronary artery bypass graft) 04/22/20 17 Statin intolerance 10/23/2016 Gastroesophageal reflux disease with esophagitis 2015 HTN, goal below 130/80 2015 BPH without obstruction/lower urinary tract symp toms 08/20/2014 ICD (implantable cardioverter-defibrillator) in place 03/20/2013 Overview: -Cardioverter-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, model [id number] Fortify, serial number [id number]. 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, model 1688TC-52 Tendril SDX, serial number [id number]. 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, model 7122Q-65 Durata, serial number [id number]. Dyslipidemia, goal LDL below 70 03/18/2013 Acquired hypothyroidism 03/18/2013 Cardiomyopathy, ischemic 03/15/2013 documented as of this encounter (statuses as of 03/28/2023) Resolved Problems Problem Noted Date Diagnosed Date [...] as of this encounter (statuses as of 03/28/2023) Immunizations Name Administration Dates Next Due Pneumococcal [...] Never Smokeless Tobacco: Never Tobacco Cessation:Counseling Given: No Alcohol Use Standard Drinks/Week Comments No 0 (1 standard drink = 0.6 oz pur e alcohol) PHQ-2 Answer Date Recorded PHQ-2 Score 0 05/18/2019 Hunger Vital Sign Answer Date Recorded Worried About Running Out of Food in the Last Ye ar Never true 05/18/2019 Ran Out of Food in the Last Year Never true 05/18/2019 Sex and Gender Information Value Date Recorded Sex Assigned at Not on file Gender Identity Not on file Sexual Orientation Not on file Job Start Date Occupation Industry Not on file Not on file Not on file documented as of this encounter Last Filed Vital Signs Vital Sign Reading Time Taken Comments Blood Pressure 122/64 03/28/2023 7:49 AM EST Pulse 63 03/28/2023 7:49 AM EST Temperature 36.8 C (98.2 F) 03/28/2023 7:49 AM ES T Respiratory Rate 22 03/28/2023 7:49 AM EST Oxygen Saturation 97% 03/28/2023 7:49 AM EST Inhaled Oxygen Concentration - - Weight 54.6 kg (120 lb 6.4 oz) 03/28/2023 7:49 A M EST Height 157.5 cm (5' 2") 03/28/2023 7:49 AM EST Body Mass Index 22.02 03/28/2023 7:49 AM EST documented in this encounter Progress Notes * Roslyn Gale, DO - 03/28/2023 8:20 AM EST Subjective Jose Hendrix Sr. is a 82 year old male. Chief Complaint Patient presents with Routine Exam Routine check up, no new or acute concerns, still having weight loss, constipation issues, weak andtired, ongoing from May Medication Administration Flu and/or Pneumo Inj HPI: 82-year-old male here today for routine visit Here with son Overall no major significant changes He continues to really struggle with generalized weakness, decreased appetite and weight loss Patient has had EGD colonoscopy and CT scans, labs which have all been normal He is concerned that maybe it side effects of medications, no major changes However wonder if amiodarone would be playing into some of his issues with appetite He does have follow-up with Cardiology scheduled next week He denies any chest pain shortness and breath or palpitations no lower extremity swelling He does have issues with constipation at times, had tried the Colace that we gave him last time butdoes not seem to help PMH: Patient Active Problem List Diagnosis Code Cardiomyopathy, ischemic I25.5 Dyslipidemia, goal LDL below 70 E78.5 Acquired hypothyroidism E03.9 ICD (implantable cardioverter-defibrillator) in place Z95.810 BPH without obstruction/lower urinary tract symptoms N40.0 Gastroesophageal reflux disease with esophagitis K21.00 HTN, goal below 130/80 I10 Statin intolerance Z78.9 History of prostate cancer Z85.46 S/P CABG (coronary artery bypass graft) Z95.1 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) I25.118 History of cardiac arrest Z86.74 Heart failure, systolic, due to CAD I50.20, I25.10 VF (ventricular fibrillation) ([facility]) I49.01 S/P drug eluting coronary stent placement Z95.5 VT (ventricular tachycardia) ([facility]) I47.20 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 850 g5 No current facility-administered medications for this visit. Past Medical History: Diagnosis Date Benign hypertensive [...] Thyroid activity decreased TIA (transient ischemic attack) Past Surgical History: Procedure Laterality Date BYPASS GRAFT ANGIOGRAPHY W/LEFT HEART CATH 03/19/2013 BYPASS GRAFT ANGIOGRAPHY W/LEFT HEART CATH performed by Maribel Lion MD at [facility] [place] BYPASS GRAFT ANGIOGRAPHY W/LEFT HEART CATH 07/14/2014 BYPASS GRAFT ANGIOGRAPHY W/LEFT HEART CATH performed by Ken Haider MD at [facility] [place] CABG, ARTERIAL, FOUR OR MORE 1991 4 CARDIAC ANGIOPLASTY, PERCUTANEOUS, 1 ARTERY 07/21/2014 PTCA, CARDIAC ANGIOPLASTY, PERCUTANEOUS, 1 ARTERY performed by Ken Haider MD at [facility] [place] CARDIAC ANGIOPLASTY, PERCUTANEOUS, 1 ARTERY 07/27/2014 PTCA, CARDIAC ANGIOPLASTY, PERCUTANEOUS, 1 ARTERY performed by Ken Haider MD at [facility] [place] CORONARY ANGIOGRAPHY W/LEFT HEART CATH 03/19/2013 CORONARY ANGIOGRAPHY W/LEFT HEART CATH performed by Maribel Lion MD at [facility] [place] HEART ELECTROCONVERSION, EXTERNAL 05/20/2013 DC CARDIOVERSION performed by Samantha Hernández IV, MD at [facility] [place] INSERT/REPLACE DEFIBRILLATOR W/TRANSVERSE LEAD(S) 03/20/2013 NON-THOR ICD LEADS AND GENERATOR IMPLANT performed by Samantha Hernández IV, MD at [facility] [place] LAPAROSCOPY; CHOLECYSTECTOMY 01/20/2018 01/20/2018 laparoscopic cholecystecomy [facility] Dr. Stanton LAPAROSCOPY; CHOLECYSTECTOMY 01/20/2018 01/20/2018 laparoscopic cholecystectomy [facility] Dr[facility] Stanton REMOVAL OF APPENDIX REMOVAL OF TONSILS, UNDER AGE 13 REMOVE SMALL BLADDER STONE, SIMPLE N/A 02/29/2020 LITHOLAPAXY SIMPLE performed by Ronny Mackey Jr., MD at OR [facility] REOPERATION, CORONARY ARTERY BYPASS PROCEDURE OR VALVE PROCEDURE 2000 07 Review of patient's allergies indicates: Allergen Reactions Protonix [Pantoprazole] Hives Sucralfate Hives Family History Problem Relation Age of Onset Other (lung cancer [Other]) Mother Other (cva [Other]) Father Heart Disorder Brother all brothers have heart disease Family Status Relation Status Mo Fa Sis Alive Sis Alive Sis Alive Bro Bro Alive Bro Alive Bro Alive Son Alive Son Alive MGMA MGFA PGMA PGFA Bro (Not Specified) Social History Socioeconomic History Marital status: Spouse name: Not on file Number of children: Not on file Years of education: Not on file Highest education level: Not on file Occupational History Not on file Tobacco Use Smoking status: Never Smokeless tobacco: Never Substance and Sexual Activity Alcohol use: No Drug use: No Sexual activity: Not on file Other Topics Concern Service No Blood Transfusions Not Asked Caffeine Concern Not Asked Occupational Exposure Not Asked Hobby Hazards Not Asked Sleep Concern Not Asked Stress Concern Not Asked Weight Concern Not Asked Special Diet Not Asked Back Care Not Asked Exercise Not Asked Bike Helmet Not Asked Seat Belt Not Asked Self-Exams Not Asked Social History Narrative Not on file Social Determinants of Health Financial Resource Strain: Not on file Food Insecurity: No Food Insecurity (10/01/2022) Hunger Vital Sign Worried About Running Out of Food in the Last Year: Never true Ran Out of Food in the Last Year: Never true Transportation Needs: Not on file Physical Activity: Not on file Stress: Not on file Social Connections: Not on file Intimate Partner Violence: Not on file Housing Stability: Not on file Objective BP 122/64 | Pulse 63 | Temp 36.8 C (98.2 F) (Temporal Artery) | Resp 22 | Ht 1.575 m (5' 2") | Wt 54.6 kg (120 lb 6.4 oz) | SpO2 97% | BMI 22.02 kg/m | BSA 1.55 m Physical Exam Vitals and nursing note reviewed. Constitutional: General: He is not in acute distress. Appearance: Normal appearance. He is well-developed. He is not ill-appearing or diaphoretic. HENT: Head: Normocephalic and atraumatic. Right Ear: External ear normal. Left Ear: External ear normal. Eyes: General: No scleral icterus. Right eye: No discharge. Left eye: No discharge. Neck: Thyroid: No thyromegaly. Cardiovascular: Rate and Rhythm: Normal rate and regular rhythm. Heart sounds: Normal heart sounds. No murmur heard. Pulmonary: Effort: Pulmonary effort is normal. No respiratory distress. Breath sounds: Normal breath sounds. No wheezing, rhonchi or rales. Abdominal: General: Bowel sounds are normal. There is no distension. Palpations: Abdomen is soft. Tenderness: There is no abdominal tenderness. Musculoskeletal: General: No deformity. Cervical back: Neck supple. Right lower leg: No edema. Left lower leg: No edema. Lymphadenopathy: Cervical: No cervical adenopathy. Skin: General: Skin is warm and dry. Neurological: General: No focal deficit present. Mental Status: He is alert and oriented to person, place, and time. Gait: Gait normal. Psychiatric: Mood and Affect: Mood normal. Behavior: Behavior normal. Thought Content: Thought content normal. Judgment: Judgment normal. ASSESSMENT/PLAN: Dyslipidemia, goal LDL below 70 (Primary) - PHOSPHORUS - COMPREHENSIVE METABOLIC PANEL; Future; Expected date: 03/28/2023 - LIPID PANEL WITH DIRECT LDL IF TG IS HIGH; Future; Expected date: 03/28/2023 - CBC WITH WBC DIFFERENTIAL; Future; Expected date: 03/28/2023 - TSH WITH FREE T4 IF INDICATED; Future; Expected date: 03/28/2023 Acquired hypothyroidism - PHOSPHORUS - COMPREHENSIVE METABOLIC PANEL; Future; Expected date: 03/28/2023 - LIPID PANEL WITH DIRECT LDL IF TG IS HIGH; Future; Expected date: 03/28/2023 - CBC WITH WBC DIFFERENTIAL; Future; Expected date: 03/28/2023 - TSH WITH FREE T4 IF INDICATED; Future; Expected date: 03/28/2023 Cardiomyopathy, ischemic - PHOSPHORUS - COMPREHENSIVE METABOLIC PANEL; Future; Expected date: 03/28/2023 - LIPID PANEL WITH DIRECT LDL IF TG IS HIGH; Future; Expected date: 03/28/2023 - CBC WITH WBC DIFFERENTIAL; Future; Expected date: 03/28/2023 - TSH WITH FREE T4 IF INDICATED; Future; Expected date: 03/28/2023 VF (ventricular fibrillation) (HCC) 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) 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 stage 3 chronic kidney disease (HCC) - PHOSPHORUS - COMPREHENSIVE METABOLIC PANEL; Future; Expected date: 03/28/2023 - LIPID PANEL WITH DIRECT LDL IF TG IS HIGH; Future; Expected date: 03/28/2023 - CBC WITH WBC DIFFERENTIAL; Future; Expected date: 03/28/2023 - TSH WITH FREE T4 IF INDICATED; Future; Expected date: 03/28/2023 Need for prophylactic vaccination and inoculation against influenza - INFLUENZA VACC, QUAD, HIGH DOSE (FLUZONE HD) BPH without obstruction/lower urinary tract symptoms Gastroesophageal reflux disease with esophagitis, unspecified whether hemorrhage History of prostate cancer Other orders - Polyethylene Glycol 3350 17 GM/SCOOP Oral Powder (Miralax); Take 17 g by mouth in the morning. Update labs Update flu shot Will start MiraLax to help with constipation Will follow-up with cardiology next week unsure if amiodarone could be adjusted to see if this would help with his appetite Follow Up: Return in about 6 months (around 09/26/2023). Roslyn Gale DO * Nataliia Richardson LPN - 03/28/2023 7:49 AM EST PRE - ADMINISTRATION DOCUMENTATION Are you experiencing any cold symptoms or fever? No Have you had Guillain-Sum[place] Syndrome (an illness that causes paralysis) within the last 6 weeks? No Have you had the flu shot in the past? YES Have you ever had a reaction to the flu shot? No Nataliia Richardson LPN, 03/28/2023 7:49 AM Immunization Administration Documentation Time Out Procedure Performed: Yes Patient Identified (Ask Name/Date of ): Yes Does the patient have a fever greater than 101 degrees today? No Patient allergic to latex? No VFC Stock: No Immunization(s) verified: Yes, Immunization Name: Flu, VIS Sheet(s) given: Yes Verified Side and Site: Yes Verified Shot(s) with Parent(s)/Patient: Yes documented in this encounter Nursing Notes * Nataliia Richardson LPN - 03/28/2023 7:46 AM EST Chief Complaint Patient presents with Routine Exam Routine check up, no new or acute concerns, still having weight loss, constipation issues, weak andtired, ongoing from May documented in this encounter Plan of Treatment Upcoming Encounters Date Type Department Care Team (Late st Contact Info) Description 04/02/2023 8:00 AM EST [facility] [address] [place] [address] Alexis Danielle DO [address] [place] [address] 04/26/2023 9:00 AM EST Cardiac Studies Cardiology[facility] [address] [place] [address] [place], [facility] [address] [place] [address] 05/22/2023 8:15 AM EST Office Visit Urology [facility] [address] [place] [address] Ronny Mackey Jr., MD [address] [place] [address] 10/04/2023 7:20 AM EDT Office Visit Family 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 stage 3 chronic kidney disease (HCC) Expected: 03/28/2023 (Approximate), Expires: 03/28/2024 LIPID PANEL WITH DIRECT LDL IF TG IS HIGH Lab Routine Dyslipidemia, goal LDL below 70 Acquired hypothyroidism Cardiomyopathy, ischemic 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 stage 3 chronic kidney disease (HCC) Expected: 03/28/2023 (Approximate), Expires: 03/28/2024 CBC WITH WBC DIFFERENTIAL Lab Routine Dyslipidemia, goal LDL below 70 Acquired hypothyroidism Cardiomyopathy, ischemic 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 stage 3 chronic kidney disease (HCC) Expected: 03/28/2023 (Approximate), Expires: 03/28/2024 TSH WITH FREE T4 IF INDICATED Lab Routine Dyslipidemia, goal LDL below 70 Acquired hypothyroidism Cardiomyopathy, ischemic 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 stage 3 chronic kidney disease (HCC) Expected: 03/28/2023 (Approximate), Expires: 03/28/2024 Health Maintenance Due Date Last Done Comments COVID-19 Vaccine (#1) 06/07/1941 Zoster Vaccines (2 of 3) 07/12/2014 05/17/2014 Depression Screening 11/22/2020 11/23/2019 CKD PHOS USE SMARTSET 05206 01/23/202301/11, 01/13/2021, 03/04/2019, Additional history exists GFR 05/11/2023 11/09/2022, 10/11, 10/05/2022, Additional history exists Albumin/Creatinine Ratio 10/06/2023 023, 04/15/2017, 11/10/2014 CKD HGB USE SMARTSET 60735 10/25/202310/24, 10/24/2022, 10/05/2022, Additional history exists TSH [...] as of this encounter Visit Diagnoses Diagnosis Dyslipidemia, goal LDL below 70- Primary Other and unspecified hyperlipidemia Acquired hypothyroidism Unspecified hypothyroidism Cardiomyopathy, ischemic Other specified forms of chronic ischemic heart disease VF (ventricular fibrillation) (HCC) Ventricular fibrillation 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) 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 No Code Status History Code Status Date Activated Date Inactivated Comments Full Code 07/27/2014 1:43 PM 07/28/2014 2:00 PM This order reflects the patients wishes and were consensually agreed upon. Question Answer Comments Discussion of Advance Directives occurred with: Not Discussed Does the patient have a Living Will? No Does the patient have Health Care Power of Horizontal Drill Operator? No Full Code 07/21/2014 11:34 AM 07/21/2014 10:34 PM Thi s order reflects the patients wishes and were consensually agreed upon. Question Answer Comments Discussion of Advance Directives occurred with: Not Discussed Does the patient have a Living Will? No Does the patient have Health Care Power of Horizontal Drill Operator? No Full Code 03/14/2013 10:18 PM 03/25/2013 2:39 PM Thi s order reflects the patients wishes and were consensually agreed upon. Question Answer Comments Discussion of Advance Directives occurred with: Not Discussed Does the patient have a Living Will? No Does the patient have Health Care Power of Horizontal Drill Operator? No Healthcare Agents on File Name Relationship Healthcare Agent Relationship Communication Jose HENDRIX Adult Child Health [employer] Repairer resentative (appointed verbally by patient or by statute hierarchy) Care Teams Cemetery Keeper Relationship Specialty Start Date End Date Roslyn Gale DO [address] [facility] [place] [address] PCP - General Family Medicine 11/10/18 documented as of this encounter
--- OUTSIDE RECORDS SUMMARY | 2023-05-18 10:50 | External Medical Summary ---
Author Name Unknown Address Unknown Organization [id number]:[facility] [address] [place] [address] Laboratory Report Ordering Provider Test Date Status GIN CONNOLLY 04/08/2023 11:05:20 Final Observation Date Value Abnormality Reference (Units ) Status T4, Free 04/08/2023 11:05:20 1.5 0.9-1.7 (n g/dL) Final Performing Location [facility] - [address] [place] [address]
--- OUTSIDE RECORDS SUMMARY | 2023-05-18 10:50 | External Medical Summary | Summary of Care ---
Author Name Unknown Organization [facility] Address [address] [place] [address] Phone [phone] Care Team Providers Care Medical Specialist Name Role Phone Roslyn Gale DO Primary Care Provider [phone]- [phone] Encounter Details Date Type Department Care Team (Late st Contact Info) Description 10/01/2022 Population Health External Data Unspecified Department Allergies Active Allergy Reactions Criticality Noted Date Comments Pantoprazole Hives 01/13/2016 Sucralfate Hives 01/13/2016 documented as of this encounter (statuses as of 03/25/2023) Medications Medication Sig Dispensed Refills Start Date End Date Status ASPIRIN 81 MG PO CHEWIndications:INTER FACED RESULT Take 1 tablet by mouth daily 32 Tab 11 03/24/2013 Active Nitroglycerin 0.4 MG Sublingual Tablet Sublingual (Nitrostat)Indication s:Cardiac arrest (HCC),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 25 Tablet 3 05/11/2021 Active Amiodarone HCl 200 MG Oral Tablet (Cordarone) take 1 tablet by mouth once daily 90 Tablet 3 04/30/2022 Active Finasteride 5 MG Oral Tablet (Proscar)Indications: BPH with obstruction/lower urinary tract symptoms,Prostate cancer (HCC) Take 1 Tablet by mouth in the morning. 90 Tablet 3 05/22/2022 Active Rosuvastatin Calcium 5 MG Oral Tablet (Crestor)Indications: Dyslipidemia, goal LDL below 70 Take 1 Tablet by mouth in the morning. 90 Tablet 3 05/24/2022 Active documented as of this encounter (statuses as of 03/25/2023) Active Problems Problem Noted Date Diagnosed Date [...] systolic, due to CAD 07/13/2020 Atherosclerosis of [place] co ronary artery of [place] heart with stable angina pectoris 11/10/2018 History of cardiac arrest 11/10/2018 S/P CABG (coronary artery bypass graft) 04/22/20 17 Statin intolerance 10/23/2016 Gastroesophageal reflux disease with esophagitis 2015 HTN, goal below 130/80 2015 BPH without obstruction/lower urinary tract symp toms 08/20/2014 ICD (implantable cardioverter-defibrillator) in place 03/20/2013 Overview: -Cardioverter-defibrillator painter assistant [employer], model [id number] Fortify, serial number [id number]. -Atrial lead painter assistant [employer], model 1688TC-52 Tendril SDX, serial number [id number]. -Right ventricular defibrillator lead painter assistant [employer], model 7122Q-65 Durata, serial number [id number]. Dyslipidemia, goal LDL below 70 03/18/2013 Acquired hypothyroidism 03/18/2013 Cardiomyopathy, ischemic 03/15/2013 documented as of this encounter (statuses as of 03/25/2023) Resolved Problems Problem Noted Date Diagnosed Date [...] as of this encounter (statuses as of 03/25/2023) Immunizations Name Administration Dates Next Due Pneumococcal [...] 8:00 AM EST Office Visit Family Practice [facility] [address] [facility] [place] [address] Roslyn Gale DO [address] [facility] [place] [address] 04/02/2023 8:00 AM EST Office Visit Cardiology, [facility] [address] [place] [address] Alexis Danielle DO [address] [place] [address] 04/26/2023 9:00 AM EST Cardiac Studies Cardiology, [facility] [address] [place] [address] [facility] [address] [place] [address] 05/22/2023 8:15 AM EST Office Visit Urology [facility] [address] [place] [address] [place] [address] Ronny Mackey Jr., MD [address] [place] [address] [place] [address] Health Maintenance Due Date Last Done Comments COVID-19 Vaccine (#1) 06/07/1941 Zoster Vaccines (2 of 3) 07/12/2014 05/17/2014 Depression Screening 11/22/2020 11/23/2019 Influenza Vaccine (FLU shot) (#1) 2023 01/30/2022, 01/30/2022, 01/13/2021, Additional history exists CKD PHOS USE SMARTSET 17763 01/23/202301/11, 01/13/2021, 03/04/2019, Additional history exists GFR 05/11/2023 11/09/2022, 10/11, 10/05/2022, Additional history exists Albumin/Creatinine Ratio 10/06/2023 023, 04/15/2017, 11/10/2014 CKD HGB USE SMARTSET 01020 10/25/202310/24, 10/24/2022, 10/05/2022, Additional history exists TSH [...] the patient have Health Care Power of Investigations Manager? No Code Status History Code Status Date Activated Date Inactivated Comments Full Code 07/27/2014 1:43 PM 07/28/2014 2:00 PM This order reflects the patients wishes and were consensually agreed upon. Question Answer Comments Discussion of Advance Directives occurred with: Not Discussed Does the patient have a Living Will? No Does the patient have Health Care Power of Investigations Manager? No Full Code 07/21/2014 11:34 AM 07/21/2014 10:34 PM Thi s order reflects the patients wishes and were consensually agreed upon. Question Answer Comments Discussion of Advance Directives occurred with: Not Discussed Does the patient have a Living Will? No Does the patient have Health Care Power of Investigations Manager? No Full Code 03/14/2013 10:18 PM 03/25/2013 2:39 PM Thi s order reflects the patients wishes and were consensually agreed upon. Question Answer Comments Discussion of Advance Directives occurred with: Not Discussed Does the patient have a Living Will? No Does the patient have Health Care Power of Investigations Manager? No Healthcare Agents on File Name Relationship Healthcare Agent Relationship Communication Jose HENDRIX Adult Child Health Nail Cutter resentative (appointed verbally by patient or by statute hierarchy) Care Teams Medical Specialist Relationship Specialty Start Date End Date Roslyn Gale DO [address] [facility] [place] [address] PCP - General Family Medicine 11/10/18 documented as of this encounter
--- OUTSIDE RECORDS SUMMARY | 2023-05-18 10:50 | External Medical Summary ---
Author Name Unknown Address Unknown Organization K01:[facility] [place] [address] [facility] [place] [address] Laboratory Report Ordering Provider Test Date Status GIN CONNOLLY 04/08/2023 11:05:20 Final Observation Date Value Abnormality Reference (Units ) Status Triglyceride 04/08/2023 11:05:20 110 <=174 ( mg/dL) Final Triglyceride Reference Range s (mg/dL):
<150 Acceptable
150-174 Borderline high
175-499 High
>=500 Very high Cholesterol 04/08/2023 11:05:20 138 <200 (mg /dL) Final Total Cholesterol Reference Ranges (mg/dL):
<200 Desirable
200-239 Borderline high
>=240 High HDL 04/08/2023 11:05:20 35 Below low normal >39 (mg/dL) Final HDL Cholesterol Reference Ra nges (mg/dL):
>=60 High (Desirable)
<50 Low (Undesirable) For Females
<40 Low (Undesirable) For Males NON-HDL CHOLESTEROL 04/08/2023 11:05:20 103 <=159 (mg/dL) Final Non-HDL Cholesterol Referenc e Range (mg/dL):
<100 Target level for high risk ASCVD patient
<130 Optimal for general population
130-159 Near optimal for general population
160-189 Borderline High
190-219 High
>=220 Very High LDL, (calculated) 04/08/2023 11:05:20 81 <= 129 (mg/dL) Final LDL Cholesterol Reference Ra nges (mg/dL):
<70 Target level for high risk ASCVD patient
<100 Optimal for general population
100-129 Near optimal for general population
130-159 Borderline high
160-189 High
>=190 Very high Performing Location [facility] [place] [address] [facility] [address]
--- OUTSIDE RECORDS SUMMARY | 2023-05-18 10:50 | External Medical Summary | Summary of Care ---
Author Name Unknown Organization [facility] Address [address] [place] [address] Phone [phone] Care Team Providers Care Heating Technician Name Role Phone Roslyn Gale DO Primary Care Provider +1- [phone] Reason for Visit * Reason Comments Outpatient Testing Encounter Details Date Type Department Care Team (Late st Contact Info) Description 04/08/2023 11:00 AM EST Laboratory Laboratory [facility] [address] [place] [phone] Zohaib Aguilar [facility] [address] [place] [address] Dyslipidemia, goal LDL below 70; Acquired hypothyroidism; Cardiomyopathy, ischemic; 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 stage 3 chronic kidney disease (HCC); ICD (implantable cardioverter-defibrill ator) battery depletion; Ischemic cardiomyopathy; Heart failure, systolic, due to CAD ; History of cardiac arrest Allergies Active Allergy [...] Sublingual (Nitrostat)Indicatio ns:Cardiac arrest (HCC),Atherosclerosi s of [place] coronary artery of [place] heart with stable angina pectoris (HCC),Crescendo angina [...] Oral Tablet (pLAVix)Indications: Cardiomyopathy, ischemic,Atheroscler osis of [place] coronary artery of [place] heart with stable angina pectoris (HCC) take 1 tablet by mouth once daily 90 Tablet 3 02/23/2023 Active Levothyroxine Sodium 75 MCG Oral Tablet (Levoxyl)Indications :Acquired hypothyroidism take 1 tablet by mouth every morning AT LEAST 30 MINUTES PRIOR TO BREAKFAST/OTHER MEDS 90 Tablet 3 02/23/2023 Active Metoprolol Succinate ER 50 MG Oral Tablet Extended Release 24 Hour (toPROL XL)Indications:Ather osclerosis of [place] coronary artery of [place] heart with stable angina pectoris (HCC),Cardiomyopathy , [...] systolic, due to CAD 07/13/2020 Atherosclerosis of [place] co 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, model [id number] Fortify, serial number [id number]. -Atrial lead car sales consultant [employer], model 1688TC-52 Tendril SDX, serial number [id number]. -Right ventricular defibrillator lead car sales consultant [employer], model 7122Q-65 Durata, serial number [id number]. Dyslipidemia, goal LDL below 70 03/18/2013 Acquired [...] 04/24/2023 10:30 AM EST Office Visit Cardiology, [facility] [address] [place] [address] Alexis Danielle, [address] [place] [address] 04/26/2023 9:00 AM EST Cardiac Studies Cardiology, [facility] [address] [place] [address] [place] [address] [place] [address] 05/22/2023 8:15 AM EST Office Visit Urology [facility] [address] [place] [address] [place] [address] Ronny Mackey Jr., MD [address] [place] [address] [place] [address] 10/04/2023 7:20 AM EDT Office Visit Family Practice [facility] [address] [place] [address] Roslyn Gale DO [address] [place] [address] Pending Results Name Type Priority Associated Diagnoses Date /Time COMPREHENSIVE METABOLIC PANEL Lab Routine Dyslipidemia, goal LDL below 70 Acquired hypothyroidism Cardiomyopathy, ischemic 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 stage 3 chronic kidney disease (HCC) 04/08/2023 11:05 AM EST LIPID PANEL WITH DIRECT LDL IF TG IS HIGH Lab Routine Dyslipidemia, goal LDL below 70 Acquired hypothyroidism Cardiomyopathy, ischemic 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 stage 3 chronic kidney disease (HCC) 04/08/2023 11:05 AM EST CBC WITH WBC DIFFERENTIAL Lab Routine Dyslipidemia, goal LDL below 70 Acquired hypothyroidism Cardiomyopathy, ischemic 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 stage 3 chronic kidney disease (HCC) 04/08/2023 11:05 AM EST TSH WITH FREE T4 IF INDICATED Lab Routine Dyslipidemia, goal LDL below 70 Acquired hypothyroidism Cardiomyopathy, ischemic 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 stage 3 chronic kidney disease (HCC) 04/08/2023 11:05 AM EST CBC Lab Routine Dyslipidemia, goal LDL below 70 Acquired hypothyroidism Cardiomyopathy, ischemic 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 stage 3 chronic kidney disease (HCC) 04/08/2023 11:05 AM EST DIFFERENTIAL, AUTOMATED Lab Routine Dyslipidemia, goal LDL below 70 Acquired hypothyroidism Cardiomyopathy, ischemic 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 stage 3 chronic kidney disease (HCC) 04/08/2023 11:05 AM EST Health Maintenance Due Date Last Done Comments COVID-19 Vaccine (#1) 06/07/1941 Zoster Vaccines (2 of 3) 07/12/2014 05/17/2014 Depression Screening 11/22/2020 11/23/2019 CKD PHOS USE SMARTSET 33993 01/23/202301/11, 01/13/2021, 03/04/2019, Additional history exists GFR 05/11/2023 11/09/2022, 10/11, 10/05/2022, Additional history exists Albumin/Creatinine Ratio 10/06/2023 023, 04/15/2017, 11/10/2014 CKD HGB USE SMARTSET 80515 10/25/202310/24, 10/24/2022, 10/05/2022, Additional history exists TSH [...] Visit Diagnoses Diagnosis Dyslipidemia, goal LDL below 70 Other and unspecified hyperlipidemia Acquired hypothyroidism Unspecified hypothyroidism Cardiomyopathy, ischemic Other specified forms of chronic ischemic heart disease 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 No Code Status History Code Status Date Activated Date Inactivated Comments Full Code 07/27/2014 1:43 PM 07/28/2014 2:00 PM This order reflects the patients wishes and were consensually agreed upon. Question Answer Comments Discussion of Advance Directives occurred with: Not Discussed Does the patient have a Living Will? No Does the patient have Health Care Power of Front End Technician? No Full Code 07/21/2014 11:34 AM 07/21/2014 10:34 PM Thi s order reflects the patients wishes and were consensually agreed upon. Question Answer Comments Discussion of Advance Directives occurred with: Not Discussed Does the patient have a Living Will? No Does the patient have Health Care Power of Front End Technician? No Full Code 03/14/2013 10:18 PM 03/25/2013 2:39 PM Thi s order reflects the patients wishes and were consensually agreed upon. Question Answer Comments Discussion of Advance Directives occurred with: Not Discussed Does the patient have a Living Will? No Does the patient have Health Care Power of Front End Technician? No Healthcare Agents on File Name Relationship Healthcare Agent Relationship Communication Jose HENDRIX Adult Child Health Warehouse Coordinator resentative (appointed verbally by patient or by statute hierarchy) Care Teams Heating Technician Relationship Specialty Start Date End Date Roslyn Gale DO [address] [facility] [place] [address] PCP - General Family Medicine 11/10/18 documented as of this encounter
--- OUTSIDE RECORDS SUMMARY | 2023-05-18 10:50 | External Medical Summary ---
Author Name Unknown Address Unknown Organization K01:[facility] [place] - [address] [facility] [address] Laboratory Report Ordering Provider Test Date Status GIN CONNOLLY 04/08/2023 11:05:20 Final Observation Date Value Abnormality Reference (Units ) Status SYNC LEUKOCYTES IN BLOOD BY AUTOMATED COUNT 04/08/2023 11:05:20 4.62 4.00-10.80 (K/uL) Final Segs 04/08/2023 11:05:20 84.7 Above high normal 40.0-75.0 (%) Final Lymphs % 04/08/2023 11:05:20 9.5 Below low normal 18.0-42.0 (%) Final Monos 04/08/2023 11:05:20 3.9 1.0-11.0 (%) Final Eosinophils 04/08/2023 11:05:20 1.1 0.0-6.0 (%) Final Basos 04/08/2023 11:05:20 0.2 0.0-2.0 (%) Final Immature Granulocyte, Percent 04/08/2023 11:05:20 0.6 0.0-2.0 (%) Final Absolute Segs 04/08/2023 11:05:20 3.91 1.80-7.70 (K/uL) Final Lymphs, absolute 04/08/2023 11:05:20 0.44 Below low normal 1.00-4.80 (K/ul) Final Monos, Abs 04/08/2023 11:05:20 0.18 0.00-1.10 (K/uL) Final Eos, Abs 04/08/2023 11:05:20 0.05 0.00-0.70 (K/uL) Final Basos, Abs 04/08/2023 11:05:20 0.01 0.00-0.20 (K/uL) Final Immature Granulocytes, Number 04/08/2023 11:05:20 0.03 0.00-0.20 (K/uL) Final Performing Location [facility] [place] - [facility] [address] [facility] [address]
--- OUTSIDE RECORDS SUMMARY | 2023-05-18 10:50 | External Medical Summary | Summary of Care ---
Author Name Unknown Organization [facility] Address [address] [place] [address] Phone [phone] Care Team Providers Care Boardmarker Name Role Phone Roslyn Gale DO Primary Care Provider +1- [phone] Encounter Details Date Type Department Care Team Description 01/01/2023 Result Scan Unspecified Department Nancy Ramon DO [address] [place] [address] <No scans attached> Allergies Active Allergy Reactions Severity Noted Date Comments Pantoprazole Hives 01/13/2016 Sucralfate Hives 01/13/2016 documented as of this encounter (statuses as of 01/01/2023) Medications Medication Sig Dispensed Refills Start Date End Date Status ASPIRIN 81 MG PO CHEWIndications:INTE RFACED RESULT Take 1 tablet by mouth daily 32 Tab 11 03/24/2013 Active Nitroglycerin 0.4 MG Sublingual Tablet Sublingual (Nitrostat)Indicatio ns:Cardiac arrest (HCC),Atherosclerosi s of [place] coronary artery of [place] heart with stable angina pectoris (HCC),Crescendo angina (HCC) PLACE 1 TABLET UNDER THE TONGUE EVERY 5 MINUTES NEEDED, UP TO 3 DOSES PER EPISODE. 25 Tablet 3 05/11/2021 Active Metoprolol Succinate ER 50 MG Oral Tablet Extended Release 24 Hour (toPROL XL)Indications:Ather osclerosis of [place] coronary artery of [place] heart with stable angina pectoris (HCC),Cardiomyopathy , ischemic Take by mouth 1 Tablet in the morning AND 1 Tablet before bedtime. 180 Tablet 4 01/24/2022 Active Clopidogrel Bisulfate 75 MG Oral Tablet (pLAVix)Indications: Cardiomyopathy, ischemic,Atheroscler osis of [place] coronary artery of [place] heart with stable angina pectoris (HCC) take [...] the morning. 90 Tablet 3 05/24/2022 Active Polyethylene Glycol 3350 17 GM/SCOOP Oral Powder (MiraLax)Indications :Change in bowel function Take 17 g by mouth in the morning. 850 g 1 06/29/2022 Active Additional Information Patient not taking.Reported on 11/07/2022 Levothyroxine Sodium 75 MCG Oral Tablet (Levoxyl)Indications :Acquired hypothyroidism take 1 tablet by mouth every morning AT LEAST 30 MINUTES PRIOR TO BREAKFAST/OTHER MEDS 90 Tablet 1 08/22/2022 Active Famotidine 20 MG Oral Tablet (Pepcid) Take 1 Tablet by mouth daily. 0 08/06/2022 Active Docusate Sodium 100 MG Oral Capsule [...] as of this encounter (statuses as of 01/01/2023) Active Problems Problem Noted Date Protein-calorie malnutrition [...] systolic, due to CAD 07/2020 Atherosclerosis of [place] co ronary artery of [place] heart with stable angina pectoris 11/10/2018 History of cardiac arrest 11/10/2018 S/P CABG (coronary artery bypass graft) 04/22/2017 Statin intolerance 10/23/2016 Gastroesophageal reflux disease with eso phagitis 2015 HTN, goal below 130/80 2015 BPH without obstruction/lower urinary tr act symptoms 08/20/2014 ICD (implantable cardioverter-defibrilla tor) in place 03/20/2013 Overview: -Cardioverter-defibrillator natural resources extension educator [employer], model [id number] Fortify, serial number [id number]. -Atrial lead natural resources extension educator [employer], model 1688TC-52 Tendril SDX, serial number [id number]. -Right ventricular defibrillator lead natural resources extension educator [employer], model 7122Q-65 Durata, serial number [id number]. Dyslipidemia, goal LDL below 70 03/18/20 13 Acquired hypothyroidism 03/18/2013 Cardiomyopathy, ischemic 03/15/2013 documented as of this encounter (statuses as of 01/01/2023) Resolved Problems Problem Noted Date Resolved Date [...] as of this encounter (statuses as of 01/01/2023) Immunizations Name Administration Dates Next Due Pneumococcal [...] Encounters Date Type Specialty Care Team Description 01/07/2023 Office Visit Cardiology Alexis Danielle DO [address] [place] [address] 03/28/2023 Office Visit Family Medicine Roslyn Gale DO [address] [facility] [place] [address] 04/26/2023 Cardiac Studies Cardiology Katherine [facility] [address] [place] [address] 05/22/2023 Office Visit Urology Ronny Mackey Jr., MD [address] [facility] [address] [place] [address] Health Maintenance Due Date Last Done Comments COVID-19 Vaccine (#1) 06/07/1941 Zoster Vaccines (2 of 3) 07/12/2014 05/17/2014 Depression Screening, Annual for Pts 12 and Over 11/22/2020 11/23/2019 Influenza Vaccine (FLU shot) (#1) 2023 01/30/2022, 01/30/2022, 01/13/2021, Additional history exists CKD PHOS USE SMARTSET 05483 01/23/202301/11, 01/13/2021, 03/04/2019, Additional history exists GFR 05/11/2023 11/09/2022, 10/11, 10/05/2022, Additional history exists Albumin/Creatinine Ratio 10/06/2023 023, 04/15/2017, 11/10/2014 CKD HGB USE SMARTSET 60099 10/25/202310/24, 10/24/2022, 10/05/2022, Additional history exists TSH [...] Date/Time Associated Diagnosis Comments CARDIOLOGY SCANNED RESULT 01/01/2023 documented in this encounter Results * CARDIOLOGY SCANNED RESULT (01/01/2023) 01/01/2023 Nancy Ramon DO OTHER documented in this encounter Advance [...] the patient have Health Care Power of Academic Specialist? No Code Status History Code Status Date Activated Date Inactivated Comments Full Code 07/27/2014 1:43 PM 07/28/2014 2:00 PM This order reflects the patients wishes and were consensually agreed upon. Question Answer Comments Discussion of Advance Directives occurred with: Not Discussed Does the patient have a Living Will? No Does the patient have Health Care Power of Academic Specialist? No Full Code 07/21/2014 11:34 AM 07/21/2014 10:34 PM Thi s order reflects the patients wishes and were consensually agreed upon. Question Answer Comments Discussion of Advance Directives occurred with: Not Discussed Does the patient have a Living Will? No Does the patient have Health Care Power of Academic Specialist? No Full Code 03/14/2013 10:18 PM 03/25/2013 2:39 PM Thi s order reflects the patients wishes and were consensually agreed upon. Question Answer Comments Discussion of Advance Directives occurred with: Not Discussed Does the patient have a Living Will? No Does the patient have Health Care Power of Academic Specialist? No Healthcare Agents on File Name Relationship Healthcare Agent Relationship Communication Jose HENDRIX Adult Child Health Jailor resentative (appointed verbally by patient or by statute hierarchy) Care Teams Boardmarker Relationship Specialty Start Date End Date Roslyn Gale DO [address] [facility] [place] [address] PCP - General Family Medicine 11/10/18 documented as of this encounter
--- OUTSIDE RECORDS SUMMARY | 2023-05-18 10:51 | External Medical Summary | Summary of Care ---
Author Name Unknown Organization [facility] Address [address] [facility] [place] [address] Phone [phone] Care Team Providers Care Crane Operator Cab Name Role Phone Roslyn Gale DO Primary Care Provider +1- [phone] Encounter Details Date Type Department Care Team Description 11/23/2022 Result Scan Unspecified Department Alexis Danielle DO [address] [place] [address] <No scans attached> Allergies Active Allergy Reactions Severity Noted Date Comments Pantoprazole Hives 01/13/2016 Sucralfate Hives 01/13/2016 documented as of this encounter (statuses as of 11/23/2022) Medications Medication Sig Dispensed Refills Start Date End Date Status ASPIRIN 81 MG PO CHEWIndications:INTE RFACED RESULT Take 1 tablet by mouth daily 32 Tab 11 03/24/2013 Active Nitroglycerin 0.4 MG Sublingual Tablet Sublingual (Nitrostat)Indicatio ns:Cardiac arrest (HCC),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 25 Tablet 3 05/11/2021 Active Metoprolol Succinate ER 50 MG Oral Tablet Extended Release 24 Hour (toPROL XL)Indications:Ather osclerosis of [place] coronary artery of [place] heart with stable angina pectoris (HCC),Cardiomyopathy , ischemic Take by mouth 1 Tablet in the morning AND 1 Tablet before bedtime. 180 Tablet 4 01/24/2022 Active Clopidogrel Bisulfate 75 MG Oral Tablet (pLAVix)Indications: Cardiomyopathy, ischemic,Atheroscler osis of [place] coronary artery of [place] heart with stable angina pectoris (HCC) take [...] as of this encounter (statuses as of 11/23/2022) Active Problems Problem Noted Date Protein-calorie malnutrition [...] systolic, due to CAD 07/2020 Atherosclerosis of [place] co ronary artery of [place] heart with stable angina pectoris 11/10/2018 History of cardiac arrest 11/10/2018 S/P CABG (coronary artery bypass graft) 04/22/2017 Statin intolerance 10/23/2016 Gastroesophageal reflux disease with eso phagitis 2015 HTN, goal below 130/80 2015 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, model [id number] Fortify, serial number [id number]. -Atrial lead lithograph operator [employer], model 1688TC-52 Tendril SDX, serial number [id number]. -Right ventricular defibrillator lead lithograph operator [employer], model 7122Q-65 Durata, serial number [id number]. Dyslipidemia, goal LDL below 70 03/18/20 13 Acquired hypothyroidism 03/18/2013 Cardiomyopathy, ischemic 03/15/2013 documented as of this encounter (statuses as of 11/23/2022) Resolved Problems Problem Noted Date Resolved Date [...] as of this encounter (statuses as of 11/23/2022) Immunizations Name Administration Dates Next Due Pneumococcal Conjugate Vacc, 13 Valent (Prevnar) 2015 Pneumococcal Conjugate Vacci ne, 7 Valent 04/01/2014 Pneumococcal Polysaccharide PPV23 (Pneumovax) 03/21/2013 Seasonal Influenza Virus Vac cine, Unspecified Formulation 01/30/2022,01/13/2021,03/09/2020,02/17,04/22/2018,04/22/2017,03/21/2013 Seasonal Influenza, Quadriva lent Hd (Fluzone Hd) 01/30/2022,01/13/2021 Seasonal Influenza, Quadriva lent, No Preserve, 6 Mons & Above, IM 03/09/2020,02/17/2019,04/22/2018 Seasonal Influenza, Quadriva lent, No Preserve, IM [...] Encounters Date Type Specialty Care Team Description 12/31/2022 Cardiac Studies Cardiac Studies 01/07/2023 Office Visit Cardiology Alexis Danielle DO [address] [place] [address] 03/28/2023 Office Visit Family Medicine Roslyn Gale DO [address] [facility] [place] [address] 04/26/2023 Cardiac Studies Cardiology Tessie Pacefrancisca [facility] [address] [place] [address] 05/22/2023 Office Visit Urology Key Sanz, Ronny Esquivel MD [address] [facility] [address] [place] [address] Health Maintenance Due Date Last Done Comments COVID-19 Vaccine (#1) 06/07/1941 Zoster Vaccines (2 of 3) 07/12/2014 05/17/2014 Depression Screening, Annual for Pts 12 and Over 11/22/2020 11/23/2019 Influenza Vaccine (FLU shot) (#1) 2023 01/30/2022, 01/30/2022, 01/13/2021, Additional history exists CKD PHOS USE SMARTSET 71243 01/23/202301/11, 01/13/2021, 03/04/2019, Additional history exists GFR 05/11/2023 11/09/2022, 10/11, 10/05/2022, Additional history exists Albumin/Creatinine Ratio 10/06/2023 023, 04/15/2017, 11/10/2014 CKD HGB USE SMARTSET 24046 10/25/202310/24, 10/24/2022, 10/05/2022, Additional history exists TSH [...] Date/Time Associated Diagnosis Comments CARDIOLOGY SCANNED RESULT 11/23/2022 documented in this encounter Results * CARDIOLOGY SCANNED RESULT (11/23/2022) 11/23/2022 Alexis Danielle DO OTHER documented in this [...] the patient have Health Care Power of Retail Sales Associate Seasonal? No Code Status History Code Status Date Activated Date Inactivated Comments Full Code 07/27/2014 1:43 PM 07/28/2014 2:00 PM This order reflects the patients wishes and were consensually agreed upon. Question Answer Comments Discussion of Advance Directives occurred with: Not Discussed Does the patient have a Living Will? No Does the patient have Health Care Power of Retail Sales Associate Seasonal? No Full Code 07/21/2014 11:34 AM 07/21/2014 10:34 PM Thi s order reflects the patients wishes and were consensually agreed upon. Question Answer Comments Discussion of Advance Directives occurred with: Not Discussed Does the patient have a Living Will? No Does the patient have Health Care Power of Retail Sales Associate Seasonal? No Full Code 03/14/2013 10:18 PM 03/25/2013 2:39 PM Thi s order reflects the patients wishes and were consensually agreed upon. Question Answer Comments Discussion of Advance Directives occurred with: Not Discussed Does the patient have a Living Will? No Does the patient have Health Care Power of Retail Sales Associate Seasonal? No Healthcare Agents on File Name Relationship Healthcare Agent Relationship Communication Jose HENDRIX Adult Child Health Internet Sales Director resentative (appointed verbally by patient or by statute hierarchy) Care Teams Crane Operator Cab Relationship Specialty Start Date End Date Roslyn Gale DO [address] [facility] [place] [address] PCP - General Family Medicine 11/10/18 documented as of this encounter
--- OUTSIDE RECORDS SUMMARY | 2023-05-18 10:51 | External Medical Summary | Summary of Care ---
Author Name Unknown Organization [facility] Address [address] [place] [address] Phone [phone] Care Team Providers Care Sash Assembler Name Role Phone Roslyn Gale DO Primary Care Provider +1- [phone] Reason for Visit * Reason Comments case management Encounter Details Date Type Department Care Team Description 11/26/2022 Engineering CoordinatorCompacting Machine Operator/Tender Practice [facility], [place] [address] [place] [address] Neela Mcgregor, RN [address] [place] [address] Medical home patient encounter* Allergies Active Allergy Reactions Severity Noted Date Comments Pantoprazole Hives 01/13/2016 Sucralfate Hives 01/13/2016 documented as of this encounter (statuses as of 11/26/2022) Medications Medication Sig Dispensed Refills Start Date End Date Status ASPIRIN 81 MG PO CHEWIndications:INTE RFACED RESULT Take 1 tablet by mouth daily 32 Tab 11 03/24/2013 Active Nitroglycerin 0.4 MG Sublingual Tablet Sublingual (Nitrostat)Indicatio ns:Cardiac arrest (HCC),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 25 Tablet 3 05/11/2021 Active Metoprolol Succinate ER 50 MG Oral Tablet Extended Release 24 Hour (toPROL XL)Indications:Ather osclerosis of [place] coronary artery of [place] heart with stable angina pectoris (HCC),Cardiomyopathy , ischemic Take by mouth 1 Tablet in the morning AND 1 Tablet before bedtime. 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, model [id number] Fortify, serial number [id number]. -Atrial lead director of donor relations [employer], model 1688TC-52 Tendril SDX, serial number [id number]. -Right ventricular defibrillator lead director of donor relations [employer], model 7122Q-65 Durata, serial number [id number]. Dyslipidemia, goal LDL below 70 03/18/20 13 Acquired hypothyroidism 03/18/2013 Cardiomyopathy, ischemic 03/15/2013 documented as of this encounter (statuses as of 11/26/2022) Resolved Problems Problem Noted Date Resolved Date [...] as of this encounter (statuses as of 11/26/2022) Immunizations Name Administration Dates Next Due Pneumococcal [...] as of this encounter Progress Notes * Neela Mcgregor RN - 11/26/2022 12:54 PM EDT SITUATION: [facility] Tier 2 follow up BACKGROUND: [facility] 09/25-09/30 Acute CHF ASSESSMENT: Reports he is "still alive"-denies any LE edema/swelling at present time. Weight today was 114 lbs.Did not check his BP today. Reports occasional WILLETT when walking to his mailbox and back-feels that this happens when there is more humidity and temperature is higher. Has ongoing chronic constipation-using senna tea which improved symptoms-last bm yesterday. Reviewed salt/fluid recommendations and importance of staying hydrated. Denies any recent falls. Reviewed red flags: worsening constipation, worsening shortness of breath, edema/swelling. RECOMMENDATION: Advised to notify PCP of any symptoms. Will plan to follow up in one week. Neela Mcgregor RNmanager therapyAdventhealth [place], [place] [address] [facility] [address] documented in this encounter Plan of Treatment Upcoming Encounters Date Type Specialty Care Team Description 12/31/2022 Cardiac Studies Cardiac Studies 01/07/2023 Office Visit Cardiology Alexis Danielle, [address] [place] [address] 03/28/2023 Office Visit Family Medicine Roslyn Gale, [address] [facility] [place] [address] 04/26/2023 Cardiac Studies Cardiology [facility] [address] [place] [address] 05/22/2023 Office Visit Urology Key Sanz, Ronny Esquivel MD [address] [facility] [address] [place] [address] Health Maintenance Due Date Last Done Comments COVID-19 Vaccine (#1) 06/07/1941 Zoster Vaccines (2 of 3) 07/12/2014 05/17/2014 Depression Screening, Annual for Pts 12 and Over 11/22/2020 11/23/2019 Influenza Vaccine (FLU shot) (#1) 2023 01/30/2022, 01/30/2022, 01/13/2021, Additional history exists CKD PHOS USE SMARTSET 93539 01/23/202301/11, 01/13/2021, 03/04/2019, Additional history exists GFR 05/11/2023 11/09/2022, 10/11, 10/05/2022, Additional history exists Albumin/Creatinine Ratio 10/06/2023 023, 04/15/2017, 11/10/2014 CKD HGB USE SMARTSET 78950 10/25/202310/24, 10/24/2022, 10/05/2022, Additional history exists TSH [...] as of this encounter Visit Diagnoses Diagnosis Medical home patient encounter- Primary Other specified examination documented in this encounter Advance Directives Latest [...] the patient have Health Care Power of Manager Portable? No Code Status History Code Status Date Activated Date Inactivated Comments Full Code 07/27/2014 1:43 PM 07/28/2014 2:00 PM This order reflects the patients wishes and were consensually agreed upon. Question Answer Comments Discussion of Advance Directives occurred with: Not Discussed Does the patient have a Living Will? No Does the patient have Health Care Power of Manager Portable? No Full Code 07/21/2014 11:34 AM 07/21/2014 10:34 PM Thi s order reflects the patients wishes and were consensually agreed upon. Question Answer Comments Discussion of Advance Directives occurred with: Not Discussed Does the patient have a Living Will? No Does the patient have Health Care Power of Manager Portable? No Full Code 03/14/2013 10:18 PM 03/25/2013 2:39 PM Thi s order reflects the patients wishes and were consensually agreed upon. Question Answer Comments Discussion of Advance Directives occurred with: Not Discussed Does the patient have a Living Will? No Does the patient have Health Care Power of Manager Portable? No Healthcare Agents on File Name Relationship Healthcare Agent Relationship Communication Jose HENDRIX Adult Child Health Board Mill Supervisor resentative (appointed verbally by patient or by statute hierarchy) Care Teams Sash Assembler Relationship Specialty Start Date End Date Roslyn Gale DO [address] [facility] [place] [address] PCP - General Family Medicine 11/10/18 documented as of this encounter
--- OUTSIDE RECORDS SUMMARY | 2023-05-18 10:51 | External Medical Summary | Summary of Care ---
Author Name Unknown Organization [facility] Address [address] [place] [address] Phone [phone] Care Team Providers Care Drawing Machine Operator Name Role Phone Roslyn Gale DO Primary Care Provider +1- [phone] Reason for Visit * Reason Comments case management Encounter Details Date Type Department Care Team Description 12/04/2022 Snowmobile MechanicDeath Claim Examiner Practice 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 25 Tablet 3 05/11/2021 Active Metoprolol Succinate ER 50 MG Oral Tablet Extended Release 24 Hour (toPROL XL)Indications:Ather osclerosis of [place] coronary artery of [place] heart with stable angina pectoris (HCC),Cardiomyopathy , ischemic Take by mouth 1 Tablet in the morning AND 1 Tablet before bedtime. 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) take [...] as of this encounter (statuses as of 12/04/2022) Active Problems Problem Noted Date Protein-calorie malnutrition [...] systolic, due to CAD 07/2020 Atherosclerosis of [place] co ronary artery of [place] heart with stable angina pectoris 11/10/2018 History of cardiac arrest 11/10/2018 S/P CABG (coronary artery bypass graft) 04/22/2017 Statin intolerance 10/23/2016 Gastroesophageal reflux disease with eso phagitis 2015 HTN, goal below 130/80 2015 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, model [id number] Fortify, serial number [id number]. -Atrial lead can reforming machine operator [employer], model 1688TC-52 Tendril SDX, serial number [id number]. -Right ventricular defibrillator lead can reforming machine operator [employer], model 7122Q-65 Durata, serial number [id number]. Dyslipidemia, goal LDL below 70 03/18/20 13 Acquired hypothyroidism 03/18/2013 Cardiomyopathy, ischemic 03/15/2013 documented as of this encounter (statuses as of 12/04/2022) Resolved Problems Problem Noted Date Resolved Date [...] as of this encounter (statuses as of 12/04/2022) Immunizations Name Administration Dates Next Due Pneumococcal [...] Progress Notes * Neela Mcgregor RN - 12/04/2022 4:15 PM EDT SITUATION: [facility] Tier 2 follow up BACKGROUND: [facility] 09/25-09/30 Acute CHF ASSESSMENT: Spoke with patient in follow up. Reports he is feeling a little tired today-was working outside this morning for a while. Denies any worsening WILLETT. Denies any LE edema/swelling. Taking medications asprescribed. Scheduled for Echo on 12/31/22 and cardiology follow up on 01/07/23. Still having ongoingconstipation issues. Senna tea is most effective treatment. Last bm was yesterday. Did not check his weight or BP today. Monitoring his salt and fluid intake as recommended. Denies any further concerns at present time. RECOMMENDATION: Advised to continue to monitor for worsening symptoms and report to PCP if occur. Will plan to follow up again within one week. Neela Mcgregor RNmerchandise appraiser [facility], [place] [address] [facility] [address] documented in this encounter Plan of Treatment Upcoming Encounters Date Type Specialty Care Team Description 12/31/2022 Cardiac Studies Cardiac Studies 01/07/2023 Office Visit Cardiology Alexis Danielle DO [address] [place] [address] 03/28/2023 Office Visit Family Medicine Roslyn Gale, [address] [facility] [place] [address] 04/26/2023 Cardiac Studies Cardiology Katherine Kurtz [facility] [address] [place] [address] 05/22/2023 Office Visit Urology Key Sanz, Ronny Esquivel MD [address] [facility] [address] [place] [address] Health Maintenance Due Date Last Done Comments COVID-19 Vaccine (#1) 06/07/1941 Zoster Vaccines (2 of 3) 07/12/2014 05/17/2014 Depression Screening, Annual for Pts 12 and Over 11/22/2020 11/23/2019 Influenza Vaccine (FLU shot) (#1) 2023 01/30/2022, 01/30/2022, 01/13/2021, Additional history exists CKD PHOS USE SMARTSET 32712 01/23/202301/11, 01/13/2021, 03/04/2019, Additional history exists GFR 05/11/2023 11/09/2022, 10/11, 10/05/2022, Additional history exists Albumin/Creatinine Ratio 10/06/2023 023, 04/15/2017, 11/10/2014 CKD HGB USE SMARTSET 54800 10/25/202310/24, 10/24/2022, 10/05/2022, Additional history exists TSH [...] the patient have Health Care Power of Splicing Technician? No Code Status History Code Status Date Activated Date Inactivated Comments Full Code 07/27/2014 1:43 PM 07/28/2014 2:00 PM This order reflects the patients wishes and were consensually agreed upon. Question Answer Comments Discussion of Advance Directives occurred with: Not Discussed Does the patient have a Living Will? No Does the patient have Health Care Power of Splicing Technician? No Full Code 07/21/2014 11:34 AM 07/21/2014 10:34 PM Thi s order reflects the patients wishes and were consensually agreed upon. Question Answer Comments Discussion of Advance Directives occurred with: Not Discussed Does the patient have a Living Will? No Does the patient have Health Care Power of Splicing Technician? No Full Code 03/14/2013 10:18 PM 03/25/2013 2:39 PM Thi s order reflects the patients wishes and were consensually agreed upon. Question Answer Comments Discussion of Advance Directives occurred with: Not Discussed Does the patient have a Living Will? No Does the patient have Health Care Power of Splicing Technician? No Healthcare Agents on File Name Relationship Healthcare Agent Relationship Communication Jose HENDRIX Adult Child Health Music Industry Internship resentative (appointed verbally by patient or by statute hierarchy) Care Teams Drawing Machine Operator Relationship Specialty Start Date End Date Roslyn Gale DO [address] [facility] [place] [address] PCP - General Family Medicine 11/10/18 documented as of this encounter
--- NOTE | 2023-05-18 11:49 | Ultrasound Report ---
US liver CLINICAL HISTORY: Elevated bilirubin and ALP COMPARISON STUDY: CT of the abdomen and pelvis October 11, 2010. FINDINGS: Small right pleural effusion is incidentally noted. There is slight nodularity of the liver surface. Size of the liver is normal. No hepatic lesions are present. The common bile duct measures 7 mm status post cholecystectomy. No common bile duct calculi are identified. Pancreas is unremarkabl e although the tail is slightly obscured. No right hydronephrosis. A few right renal cysts measure up to 2 cm. A small amount of abdominal ascites is present. Size of the spleen is normal. IMPRESSION: 1. Top normal caliber common bile duct, likely related to cholecystectomy. 2. Small amount of abdominal ascites. Small right pleural effusion. 3. Slight nodularity of the liver surface. This could indicate early cirrhosis. No hepatic lesions. ACT 112: Negative or not required by law. Electronically signed by: Edward Gonzales M.D. 05/18/2023 11:47 AM
--- NOTE | 2023-05-18 14:07 | Hospitalist Progress Note ---
Date of Service May 18, 2023 Assessment & Plan (1) Altered mental status: Plan: 82-year-old male with past medical history significant for hyperlipidemia, hypothyroidism, chronic systolic CHF EF 15 to 20%, history of cardiac arrest, history of ventricular fibrillation, s/p ICD, history of CAD s/p CABG, s/p stent, CKD stage III, GERD, protein calorie malnutrition, BPH, history of prostate cancer, was brought in by son and [id number] because of confusion for last 2 days and some visual hallucinations. Altered mental status Possible from UTI Patient was brought to the hospital due to confusion Initial lactic acid was 2.[address] head on admission did not show any acute finding Chest x-ray personally reviewed; no acute finding Urinalysis suggestive of infection Blood culture pending Continue IV antibiotics for now. Follow-up on urine culture and blood culture. Elevated liver enzymes Liver enzymes found to be elevated. His total bilirubin in January was 2.9; 2.2. ALP elevated. Liver ultrasounds done; slight nodularity of liver surface which could indicate early cirrhosis. Liver enzyme elevation can secondary to congestive hepatopathy History of weight loss Severe malnutrition Patient reports significant weight loss over several months. Will consult speech and dietitian for recommendations. History of chronic systolic CHF EF 15 to 20% S/p ICD Continue torsemide. Continue at Toprol, Imdur. History of CAD s/p CABG S/p stents Continue aspirin, Plavix, Imdur, Toprol and rosuvastatin History of ventricular fibrillation and cardiac arrest S/p ICD Hypertension On Imdur, Toprol, lisinopril, torsemide Will monitor BPH On Proscar CKD stage III Presented creatinine 1.15 Will follow DVT prophylaxis Heparin subcu Disposition Med/tele Full code Please note the above document was generated using voice recognition software. It may contain grammatical, syntax or spelling errors. Any formal questions or concerns about the content, text or information contained within the body of this dictation should be directly addressed to the provider for clarification Admission and Anticipated Discharge Date Admission Date: May 18, 2023 Subjective Patient seen and examined at bedside. Comfortable; not in distress. Denies fever, chills, chest pain, shortness of breath, abdominal pain or urinary symptoms. Review of Systems Review of Systems: All systems reviewed & are unremarkable except as noted in Subjective Physical Exam Physical Exam: Constitutional: Alert oriented x 3; not in distress. Respiratory: Bilateral vesicular breath sounds Cardiovascular: RRR, no murmur, no edema Vessels: no JVD or carotid bruit Abdomen: normal bowel sounds, soft, nontender, no hepatosplenomegaly Musculoskeletal: no cyanosis or clubbing, extremities motor strength 5/5 Skin: no rashes, warm and dry normal turgor Neurologic: PERRL, EOMI, accommodation nl, no face palsy, no dysarthria CN's II- XI intact bilaterally and moves all extremities Psychiatric: A+Ox3, euthymic affect Results & Data Results & Data Vital Signs (Past 12 Hours) Vital Signs Temp Pulse Pulse Pulse Resp BP Pulse Ox 05/18/23 12:42 36.6 C 64 18 133/92 98 05/18/23 11:05 63 05/18/23 10:59 36.8 C 64 18 122/79 98 05/18/23 08:00 70 22 129/91 98 05/18/23 07:12 63 05/18/23 05:56 72 05/18/23 05:48 73 16 98 05/18/23 04:00 77 16 140/99 98 05/18/23 03:12 73 18 132/90 96 O2 Del Method 05/18/23 12:42 Room Air 05/18/23 11:05 05/18/23 10:59 Room Air 05/18/23 08:00 Room Air 05/18/23 07:12 05/18/23 05:56 05/18/23 05:48 Room Air 05/18/23 04:00 Room Air 05/18/23 03:12 Room Air
[2023-05-18] MEDS: cefTRIAXone SODIUM 2,000 MG in DEXTROSE 5 % MINI-B 50 ML IV SCH (20:30)
[2023-05-18] MEDS: DOCUSATE SODIUM 100 MG CAP PO SCH (20:31)
[2023-05-19] MEDS: LEVOTHYROXINE SODIUM 100 MCG TABLET PO SCH (05:43)
[2023-05-19] MEDS: METOPROLOL SUCC 50MG EXT REL TAB PO SCH ×2 (08:17→20:15)
[2023-05-19] MEDS: TORSEMIDE 10 MG TAB PO SCH (08:17)
[2023-05-19] MEDS: ASPIRIN 81 MG ECTAB PO SCH (08:18)
[2023-05-19] MEDS: ISOSORBIDE MONO EXTENDED REL 30 MG TABCR PO SCH (08:18)
[2023-05-19] MEDS: ROSUVASTATIN CALCIUM 5 MG TAB PO SCH (08:18)
[2023-05-19] MEDS: HEPARIN SOD 5,000 UNIT/0.5 ML VIAL SQ SCH ×2 (08:18→20:15)
[2023-05-19] MEDS: CLOPIDOGREL BISULFATE 75 MG TAB PO SCH (08:18)
[2023-05-19] MEDS: FINASTERIDE 5 MG TAB PO SCH (08:18)
[2023-05-19] MEDS: lisinopril 2.5 MG TAB PO SCH (08:18)
[2023-05-19] MEDS: POLYETHYLENE (MIRALAX) 17 GM PACK PO SCH (08:29)
[2023-05-19 09:04] LABS: Basophils # (auto) 0.03 K/uL (0.00-0.20); Basophils % (auto) 0.4 %; Eosinophils # (auto) 0.03 K/uL (0.00-0.50); Eosinophils % (auto) 0.4 %; Hematocrit (blood only) 35.9 % (42.0-52.0); Hemoglobin 11.7 g/dl (14.0-18.0); Immature Granulocytes # (auto) 0.04 K/uL (0.01-0.20); Immature Granulocytes % (auto) 0.5 %; Lymphocytes # (auto) 0.71 K/uL (1.20-3.40); Lymphocytes % (auto) 8.9 %; Mean Corpuscular Hemoglobin 31.6 pg (25.0-34.0); Mean Corpuscular Hgb Conc 32.6 g/dL (32.0-36.0); Mean Platelet Volume 11.2 fL (9.4-12.4); Monocytes # (auto) 0.65 K/uL (0.11-0.59); Monocytes % (auto) 8.1 %; Neutrophils # (auto) 6.52 K/uL (1.40-6.50); Neutrophils % (auto) 81.7 %; Platelet Count 157 K/uL (130-400); RDW Coefficient of Variation 18.4 % (11.5-14.5); RDW Standard Deviation 63.9 fL (36.4-46.3); White Blood Count 7.98 K/ul (4.8-10.8)
[2023-05-19 09:11] LABS: BUN Creatinine Ratio 23.3 (10-20); Calcium 8.6 mg/dl (8.6-10.3); Est GFR (African American) 68.1 ml/min; Est GFR (Non-African American) 58.7 ml/min; Potassium 4.3 mmol/L (3.5-5.1)
--- NOTE | 2023-05-19 14:11 | Hospitalist Progress Note ---
Date of Service May 19, 2023 Assessment & Plan (1) Altered mental status: Plan: 82-year-old male with past medical history significant for hyperlipidemia, hypothyroidism, chronic systolic CHF EF 15 to 20%, history of cardiac arrest, history of ventricular fibrillation, s/p ICD, history of CAD s/p CABG, s/p stent, CKD stage III, GERD, protein calorie malnutrition, BPH, history of prostate cancer, was brought in by son and [id number] because of confusion for last 2 days and some visual hallucinations. Altered mental status Possible from UTI Patient was brought to the hospital due to confusion Initial lactic acid was 2.[address] head on admission did not show any acute finding Chest x-ray personally reviewed; no acute finding Urinalysis suggestive of infection Blood cultureno growth Urinalysis test no growth Continue on IV ceftriaxone for now; plan to treat for possible UTI for total of 7 days. Follow-up on urine culture and blood culture. Elevated liver enzymes Liver enzymes found to be elevated. His total bilirubin in January was 2.9; 2.2. ALP elevated. Liver ultrasounds done; slight nodularity of liver surface which could indicate early cirrhosis. Liver enzyme elevation can secondary to congestive hepatopathy History of weight loss Severe malnutrition Patient reports significant weight loss over several months. Consulted speech and dietitian for recommendations. History of chronic systolic CHF EF 15 to 20% S/p ICD Continue torsemide. Continue at Toprol, Imdur. History of CAD s/p CABG S/p stents Continue aspirin, Plavix, Imdur, Toprol and rosuvastatin History of ventricular fibrillation and cardiac arrest S/p ICD Hypertension On Imdur, Toprol, lisinopril, torsemide Will monitor BPH On Proscar CKD stage III Presented creatinine 1.15 Will follow DVT prophylaxis Heparin subcu Disposition Lives with son and [id number]. PT OT ordered. Discharge in next few days. Full code Discussed plan of care with the patient's son over the phone. Answered questions/queries. Please note the above document was generated using voice recognition software. It may contain grammatical, syntax or spelling errors. Any formal questions or concerns about the content, text or information contained within the body of this dictation should be directly addressed to the provider for clarification Admission and Anticipated Discharge Date Admission Date: May 18, 2023 Subjective Patient seen and examined at bedside. Comfortable; not in distress. Denies fever, chills, chest pain, shortness of breath, abdominal pain or urinary symptoms. Overnight, patient was reported to be slightly delirious. Review of Systems Review of Systems: All systems reviewed & are unremarkable except as noted in Subjective Physical Exam Physical Exam: Constitutional: Alert oriented x 3; not in distress. Respiratory: Bilateral vesicular breath sounds Cardiovascular: RRR, no murmur, no edema Vessels: no JVD or carotid bruit Abdomen: normal bowel sounds, soft, nontender, no hepatosplenomegaly Musculoskeletal: no cyanosis or clubbing, extremities motor strength 5/5 Skin: no rashes, warm and dry normal turgor Neurologic: PERRL, EOMI, accommodation nl, no face palsy, no dysarthria CN's II- XI intact bilaterally and moves all extremities Psychiatric: A+Ox3, euthymic affect Results & Data Results & Data Vital Signs (Past 12 Hours) Vital Signs Temp Pulse Pulse Resp BP Pulse Ox O2 Del Method 05/19/23 12:01 36.4 C L 78 18 133/86 95 Room Air 05/19/23 08:20 36.6 C 65 16 130/84 98 Room Air 05/19/23 06:52 62 05/19/23 03:01 36.3 C L 77 18 118/71 93 Room Air
[2023-05-19] MEDS ORDERED: OLANZapine 10 MG/2.1 ML SDV IM STA (15:50)
[2023-05-19] MEDS: OLANZAPINE 2.5 MG TAB PO SCH (20:15)
[2023-05-19] MEDS: DOCUSATE SODIUM 100 MG CAP PO SCH (20:15)
[2023-05-19] MEDS: cefTRIAXone SODIUM 2,000 MG in DEXTROSE 5 % MINI-B 50 ML IV SCH (21:10)
[2023-05-20] MEDS: LEVOTHYROXINE SODIUM 100 MCG TABLET PO SCH (05:44)
[2023-05-20 07:29] LABS: Basophils # (auto) 0.04 K/uL (0.00-0.20); Basophils % (auto) 0.5 %; Eosinophils % (auto) 1.3 %; Hematocrit (blood only) 34.2 % (42.0-52.0); Hemoglobin 11.1 g/dl (14.0-18.0); Immature Granulocytes # (auto) 0.04 K/uL (0.01-0.20); Immature Granulocytes % (auto) 0.5 %; Lymphocytes # (auto) 0.64 K/uL (1.20-3.40); Lymphocytes % (auto) 8.4 %; Mean Corpuscular Hemoglobin 31.5 pg (25.0-34.0); Mean Corpuscular Hgb Conc 32.5 g/dL (32.0-36.0); Mean Corpuscular Volume 97.2 fL (80.0-100.0); Mean Platelet Volume 11.1 fL (9.4-12.4); Monocytes # (auto) 0.51 K/uL (0.11-0.59); Monocytes % (auto) 6.7 %; Neutrophils # (auto) 6.28 K/uL (1.40-6.50); Neutrophils % (auto) 82.6 %; Platelet Count 155 K/uL (130-400); RDW Standard Deviation 63.3 fL (36.4-46.3); Red Blood Count 3.52 M/uL (4.70-6.10); White Blood Count 7.61 K/ul (4.8-10.8)
[2023-05-20 07:51] LABS: Calcium 8.3 mg/dl (8.6-10.3); Creatinine Clr Calc Pharmacy 38.7 ml/min; Est GFR (African American) 74.2 ml/min; Potassium 3.7 mmol/L (3.5-5.1)
[2023-05-20 08:06] LABS: Thyroid Stimulating Hormone 6.13 uIu/ml (0.300-4.500)
--- NOTE | 2023-05-20 08:13 | Electrocardiogram Report ---
Test Reason : Blood Pressure : / mmHG Vent. Rate : 065 BPM Atrial Rate : 065 BPM P-R Int : 198 ms QRS Dur : 126 ms QT Int : 496 ms P-R-T Axes : 021 002 190 degrees QTc Int : 515 ms Normal sinus rhythm Non-specific intra-ventricular conduction block Nonspecific T wave abnormality Abnormal ECG When compared with ECG of 28-JAN-2023 12:28, Sinus rhythm has replaced Electronic atrial pacemaker QRS duration has decreased Confirmed by Arpit Rodriguez ([id number]) on 05/20/2023 8:13:21 AM Referred By: REFERRED SELF Confirmed By:Arpit Rodriguez
[2023-05-20] MEDS: lisinopril 2.5 MG TAB PO SCH (08:22)
[2023-05-20] MEDS: TORSEMIDE 10 MG TAB PO SCH (08:22)
[2023-05-20] MEDS: ASPIRIN 81 MG ECTAB PO SCH (08:22)
[2023-05-20] MEDS: CLOPIDOGREL BISULFATE 75 MG TAB PO SCH (08:22)
[2023-05-20] MEDS: ROSUVASTATIN CALCIUM 5 MG TAB PO SCH (08:22)
[2023-05-20] MEDS: HEPARIN SOD 5,000 UNIT/0.5 ML VIAL SQ SCH ×2 (08:22→20:36)
[2023-05-20] MEDS: METOPROLOL SUCC 50MG EXT REL TAB PO SCH ×2 (08:22→20:36)
[2023-05-20] MEDS: ISOSORBIDE MONO EXTENDED REL 30 MG TABCR PO SCH (08:22)
[2023-05-20] MEDS: FINASTERIDE 5 MG TAB PO SCH (08:22)
[2023-05-20] MEDS: POLYETHYLENE (MIRALAX) 17 GM PACK PO SCH (08:27)
--- NOTE | 2023-05-20 13:09 | Hospitalist Progress Note ---
Date of Service May 20, 2023 Assessment & Plan (1) Altered mental status: Plan: 82-year-old male with past medical history significant for hyperlipidemia, hypothyroidism, chronic systolic CHF EF 15 to 20%, history of cardiac arrest, history of ventricular fibrillation, s/p ICD, history of CAD s/p CABG, s/p stent, CKD stage III, GERD, protein calorie malnutrition, BPH, history of prostate cancer, was brought in by son and [id number] because of confusion for last 2 days and some visual hallucinations. Altered mental status Patient was brought to the hospital due to confusion Initial lactic acid was 2.[address] head on admission did not show any acute finding Chest x-ray personally reviewed; no acute finding Urinalysis suggestive of infection Blood cultureno growth Urinalysis culture no growth Vitamin [id number] TSH slightly elevated Patient continues to have delusion and hallucination despite being under treatment for UTI. He is started on Zyprexa 2.5 mg at bedtime to see if that helps with the behavioral abnormalities. Will appreciate psychiatry's recommendation as well. Elevated liver enzymes Liver enzymes found to be elevated. His total bilirubin in January was 2.9; 2.2. ALP elevated. Liver ultrasounds done; slight nodularity of liver surface which could indicate early cirrhosis. Liver enzyme elevation can secondary to congestive hepatopathy Follow-up as outpatient History of weight loss Severe malnutrition Patient reports significant weight loss over several months. Consulted speech and dietitian for recommendations. History of chronic systolic CHF EF 15 to 20% S/p ICD Continue torsemide. Continue at Toprol, Imdur. History of CAD s/p CABG S/p stents Continue aspirin, Plavix, Imdur, Toprol and rosuvastatin History of ventricular fibrillation and cardiac arrest S/p ICD Hypertension On Imdur, Toprol, lisinopril, torsemide Will monitor BPH On Proscar CKD stage III Presented creatinine 1.15 Will follow DVT prophylaxis Heparin subcu Disposition Lives with son and [id number]. PT OT recommends rehab if family is not able to provide 24/7 care. Appreciate case management input. Full code Discussed plan of care with the patient's son over the phone on May 20, 2023.. Answered questions/queries. Please note the above document was generated using voice recognition software. It may contain grammatical, syntax or spelling errors. Any formal questions or concerns about the content, text or information contained within the body of this dictation should be directly addressed to the provider for clarification Admission and Anticipated Discharge Date Admission Date: May 18, 2023 Subjective Patient seen and examined at bedside. Comfortable; not in distress. Denies fever, chills, chest pain, shortness of breath, abdominal pain or urinary symptoms. Overnight, patient got out of bed and into the hallways. He appears to have hallucinations and paranoid thoughts. Review of Systems Review of Systems: All systems reviewed & are unremarkable except as noted in Subjective Physical Exam Physical Exam: Constitutional: Alert oriented x 3; not in distress. Respiratory: Bilateral vesicular breath sounds Cardiovascular: RRR, no murmur, no edema Vessels: no JVD or carotid bruit Abdomen: normal bowel sounds, soft, nontender, no hepatosplenomegaly Musculoskeletal: no cyanosis or clubbing, extremities motor strength 5/5 Skin: no rashes, warm and dry normal turgor Neurologic: PERRL, EOMI, accommodation nl, no face palsy, no dysarthria CN's II- XI intact bilaterally and moves all extremities Psychiatric: A+Ox3, euthymic affect Results & Data Results & Data Vital Signs (Past 12 Hours) Vital Signs Temp Pulse Pulse Resp BP Pulse Ox O2 Del Method 05/20/23 11:49 36.2 C L 78 20 118/76 98 Room Air 05/20/23 08:17 36.5 C 80 28 H 143/86 H 96 Room Air 05/20/23 08:00 Room Air 05/20/23 07:00 71
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
[2023-05-20] MEDS: CYANOCOBALAMIN (B-12) 500 MCG TABLET PO SCH (15:31)
[2023-05-20] MEDS: cefTRIAXone SODIUM 2,000 MG in DEXTROSE 5 % MINI-B 50 ML IV SCH (20:34)
[2023-05-20] MEDS: OLANZAPINE 2.5 MG TAB PO SCH (20:36)
[2023-05-20] MEDS: DOCUSATE SODIUM 100 MG CAP PO SCH (20:39)
[2023-05-21] MEDS: LEVOTHYROXINE SODIUM 100 MCG TABLET PO SCH (05:31)
[2023-05-21 08:06] LABS: Basophils # (auto) 0.03 K/uL (0.00-0.20); Basophils % (auto) 0.4 %; Eosinophils % (auto) 4.5 %; Hematocrit (blood only) 32.7 % (42.0-52.0); Hemoglobin 10.9 g/dl (14.0-18.0); Immature Granulocytes # (auto) 0.02 K/uL (0.01-0.20); Immature Granulocytes % (auto) 0.3 %; Lymphocytes # (auto) 0.63 K/uL (1.20-3.40); Lymphocytes % (auto) 9.4 %; Mean Corpuscular Hemoglobin 31.9 pg (25.0-34.0); Mean Corpuscular Hgb Conc 33.3 g/dL (32.0-36.0); Mean Corpuscular Volume 95.6 fL (80.0-100.0); Mean Platelet Volume 11.1 fL (9.4-12.4); Monocytes # (auto) 0.43 K/uL (0.11-0.59); Monocytes % (auto) 6.4 %; Neutrophils # (auto) 5.27 K/uL (1.40-6.50); Platelet Count 144 K/uL (130-400); RDW Coefficient of Variation 18.4 % (11.5-14.5); RDW Standard Deviation 62.9 fL (36.4-46.3); Red Blood Count 3.42 M/uL (4.70-6.10); White Blood Count 6.68 K/ul (4.8-10.8)
[2023-05-21 08:28] LABS: BUN Creatinine Ratio 25.2 (10-20); Calcium 8.1 mg/dl (8.6-10.3); Est GFR (African American) 63.4 ml/min; Est GFR (Non-African American) 54.7 ml/min; Potassium 3.7 mmol/L (3.5-5.1)
[2023-05-21] MEDS: METOPROLOL SUCC 50MG EXT REL TAB PO SCH ×2 (08:52→21:21)
[2023-05-21] MEDS: ISOSORBIDE MONO EXTENDED REL 30 MG TABCR PO SCH (08:52)
[2023-05-21] MEDS: ASPIRIN 81 MG ECTAB PO SCH (08:52)
[2023-05-21] MEDS: lisinopril 2.5 MG TAB PO SCH (08:52)
[2023-05-21] MEDS: ROSUVASTATIN CALCIUM 5 MG TAB PO SCH (08:52)
[2023-05-21] MEDS: FINASTERIDE 5 MG TAB PO SCH (08:52)
[2023-05-21] MEDS: TORSEMIDE 10 MG TAB PO SCH (08:52)
[2023-05-21] MEDS: CYANOCOBALAMIN (B-12) 500 MCG TABLET PO SCH (08:52)
[2023-05-21] MEDS: HEPARIN SOD 5,000 UNIT/0.5 ML VIAL SQ SCH ×2 (08:53→21:21)
[2023-05-21] MEDS: POLYETHYLENE (MIRALAX) 17 GM PACK PO SCH (09:00)
[2023-05-21] MEDS: CLOPIDOGREL BISULFATE 75 MG TAB PO SCH (11:09)
--- NOTE | 2023-05-21 13:19 | Hospitalist Progress Note ---
Date of Service May 21, 2023 Assessment & Plan (1) Altered mental status: Plan: 82-year-old male with past medical history significant for hyperlipidemia, hypothyroidism, chronic systolic CHF EF 15 to 20%, history of cardiac arrest, history of ventricular fibrillation, s/p ICD, history of CAD s/p CABG, s/p stent, CKD stage III, GERD, protein calorie malnutrition, BPH, history of prostate cancer, was brought in by son and [id number] because of confusion for last 2 days and some visual hallucinations. Altered mental status Patient was brought to the hospital due to confusion Initial lactic acid was 2.[address] head on admission did not show any acute finding Chest x-ray personally reviewed; no acute finding Urinalysis suggestive of infection Blood cultureno growth Urinalysis culture no growth Vitamin [id number] TSH slightly elevated: Free T4 within normal limits Patient is on ceftriaxone for presumed UTI. Finish 7-day course even though culture is negative as patient is symptomatically improving. Started on Zyprexa 2.5 mg at bedtime for behavioral abnormalities. Psychiatry consulted; recommended to continue the same.. Also started on vitamin B12 supplement Elevated liver enzymes Liver enzymes found to be elevated. His total bilirubin in January was 2.9; 2.2. ALP elevated. Liver ultrasounds done; slight nodularity of liver surface which could indicate early cirrhosis. Liver enzyme elevation can secondary to congestive hepatopathy Follow-up as outpatient History of weight loss Severe malnutrition Patient reports significant weight loss over several months. Consulted speech and dietitian for recommendations. History of chronic systolic CHF EF 15 to 20% S/p ICD Continue torsemide. Continue at Toprol, Imdur. History of CAD s/p CABG S/p stents Continue aspirin, Plavix, Imdur, Toprol and rosuvastatin History of ventricular fibrillation and cardiac arrest S/p ICD Hypertension On Imdur, Toprol, lisinopril, torsemide Will monitor BPH On Proscar CKD stage III Presented creatinine 1.15 Will follow DVT prophylaxis Heparin subcu Disposition Used to live with son and ccmdvdbq-li-fnz. PT OT recommends rehab if family is not able to provide 24/7 care. Discussed with patient's son, gslbqcqh-sj-smg at bedside on May 20; they want him to go to [place] where patient's ctrgwiwo-uu-alg works. Case management on board. Full code Please note the above document was generated using voice recognition software. It may contain grammatical, syntax or spelling errors. Any formal questions or concerns about the content, text or information contained within the body of this dictation should be directly addressed to the provider for clarification Admission and Anticipated Discharge Date Admission Date: May 18, 2023 Subjective Patient seen and examined at bedside. Comfortable; not in distress. Denies fever, chills, chest pain, shortness of breath, abdominal pain or urinary symptoms. No significant overnight events Review of Systems Review of Systems: All systems reviewed & are unremarkable except as noted in Subjective Physical Exam Physical Exam: Constitutional: Alert oriented x 3; not in distress. Respiratory: Bilateral vesicular breath sounds Cardiovascular: RRR, no murmur, no edema Vessels: no JVD or carotid bruit Abdomen: normal bowel sounds, soft, nontender, no hepatosplenomegaly Musculoskeletal: no cyanosis or clubbing, extremities motor strength 5/5 Skin: no rashes, warm and dry normal turgor Neurologic: PERRL, EOMI, accommodation nl, no face palsy, no dysarthria CN's II- XI intact bilaterally and moves all extremities Psychiatric: A+Ox3, euthymic affect Results & Data Results & Data Vital Signs (Past 12 Hours) Vital Signs Temp Pulse Pulse Resp BP Pulse Ox O2 Del Method 05/21/23 11:51 36.6 C 60 16 120/74 98 Room Air 05/21/23 08:00 Room Air 05/21/23 07:41 36.5 C 60 16 138/85 93 Room Air 05/21/23 07:00 63 05/21/23 04:00 60 20 126/79 97 Room Air
[2023-05-21] MEDS: cefTRIAXone SODIUM 2,000 MG in DEXTROSE 5 % MINI-B 50 ML IV SCH (21:21)
[2023-05-21] MEDS: DOCUSATE SODIUM 100 MG CAP PO SCH (21:24)
[2023-05-21] MEDS: OLANZAPINE 2.5 MG TAB PO SCH (21:55)
[2023-05-21] MEDS ORDERED: OLANZapine 10 MG/2.1 ML SDV IM STA (23:03)
[2023-05-22] MEDS: LEVOTHYROXINE SODIUM 100 MCG TABLET PO SCH (05:45)
[2023-05-22 07:34] LABS: Basophils # (auto) 0.04 K/uL (0.00-0.20); Basophils % (auto) 0.5 %; Eosinophils # (auto) 0.06 K/uL (0.00-0.50); Eosinophils % (auto) 0.8 %; Hematocrit (blood only) 36.1 % (42.0-52.0); Hemoglobin 11.9 g/dl (14.0-18.0); Immature Granulocytes # (auto) 0.03 K/uL (0.01-0.20); Immature Granulocytes % (auto) 0.4 %; Lymphocytes # (auto) 0.51 K/uL (1.20-3.40); Lymphocytes % (auto) 6.8 %; Mean Corpuscular Hemoglobin 31.6 pg (25.0-34.0); Mean Corpuscular Volume 95.8 fL (80.0-100.0); Mean Platelet Volume 10.8 fL (9.4-12.4); Monocytes # (auto) 0.45 K/uL (0.11-0.59); Neutrophils # (auto) 6.46 K/uL (1.40-6.50); Neutrophils % (auto) 85.5 %; Platelet Count 192 K/uL (130-400); RDW Coefficient of Variation 18.4 % (11.5-14.5); RDW Standard Deviation 63.4 fL (36.4-46.3); Red Blood Count 3.77 M/uL (4.70-6.10); White Blood Count 7.55 K/ul (4.8-10.8)
[2023-05-22 08:03] LABS: Calcium 8.3 mg/dl (8.6-10.3); Est GFR (African American) 62.8 ml/min; Est GFR (Non-African American) 54.2 ml/min; Potassium 4.2 mmol/L (3.5-5.1)
[2023-05-22] MEDS: FINASTERIDE 5 MG TAB PO SCH (08:06)
[2023-05-22] MEDS: HEPARIN SOD 5,000 UNIT/0.5 ML VIAL SQ SCH ×2 (08:06→19:52)
[2023-05-22] MEDS: METOPROLOL SUCC 50MG EXT REL TAB PO SCH ×3 (08:06→20:57)
[2023-05-22] MEDS: ASPIRIN 81 MG ECTAB PO SCH (08:06)
[2023-05-22] MEDS: ISOSORBIDE MONO EXTENDED REL 30 MG TABCR PO SCH (08:06)
[2023-05-22] MEDS: CLOPIDOGREL BISULFATE 75 MG TAB PO SCH (08:06)
[2023-05-22] MEDS: CYANOCOBALAMIN (B-12) 500 MCG TABLET PO SCH (08:06)
[2023-05-22] MEDS: lisinopril 2.5 MG TAB PO SCH (08:06)
[2023-05-22] MEDS: POLYETHYLENE (MIRALAX) 17 GM PACK PO SCH (08:07)
[2023-05-22] MEDS: ROSUVASTATIN CALCIUM 5 MG TAB PO SCH (08:07)
[2023-05-22] MEDS: TORSEMIDE 10 MG TAB PO SCH (08:07)
--- NOTE | 2023-05-22 15:52 | Hospitalist Progress Note ---
Date of Service May 22, 2023 Assessment & Plan (1) Altered mental status: Plan: 82-year-old male with past medical history significant for hyperlipidemia, hypothyroidism, chronic systolic CHF EF 15 to 20%, history of cardiac arrest, history of ventricular fibrillation, s/p ICD, history of CAD s/p CABG, s/p stent, CKD stage III, GERD, protein calorie malnutrition, BPH, history of prostate cancer, was brought in by son and [id number]-ff-bjf because of confusion for last 2 days and some visual hallucinations. He is being managed with the following: Altered mental status Patient was brought to the hospital due to confusion Initial lactic acid was 2.[address] head on admission did not show any acute finding Chest x-ray personally reviewed; no acute finding Urinalysis suggestive of infection Blood cultureno growth Urinalysis culture no growth Vitamin [id number] TSH slightly elevated: Free T4 within normal limits Patient is on ceftriaxone for presumed UTI. Finish 5-day course even though culture is negative as patient is symptomatically improving. Started on Zyprexa 2.5 mg at bedtime for behavioral abnormalities. Psychiatry consulted; recommended to continue the same.. Also started on vitamin B12 supplement Elevated liver enzymes Liver enzymes found to be elevated. His total bilirubin in January was 2.9; 2.2. ALP elevated. Liver ultrasounds done; slight nodularity of liver surface which could indicate early cirrhosis. Liver enzyme elevation can secondary to congestive hepatopathy Follow-up as outpatient History of weight loss Severe malnutrition Patient reports significant weight loss over several months. Consulted speech and dietitian for recommendations. History of chronic systolic CHF EF 15 to 20% S/p ICD Continue torsemide. Continue at Toprol, Imdur. History of CAD s/p CABG S/p stents Continue aspirin, Plavix, Imdur, Toprol and rosuvastatin History of ventricular fibrillation and cardiac arrest S/p ICD Hypertension On Imdur, Toprol, lisinopril, torsemide Will monitor BPH On Proscar CKD stage III Presented creatinine 1.15 Will follow DVT prophylaxis Heparin subcu Disposition Used to live with son and [id number]. PT OT recommends rehab if family is not able to provide 24/7 care. Prior attending discussed with patient's son, obltowlr-ub-igw at bedside on May 20; they want him to go to [place] where patient's gmeuvsbn-in-buf works. Case management on board. Full code Admission and Anticipated Discharge Date Admission Date: May 18, 2023 Subjective Patient seen and examined at bedside. Comfortable; not in distress. Sitting up in chair. Denies fever, chills, chest pain, shortness of breath, abdominal pain or urinary symptoms. Required IM Zyprexa overnight for agitation. Physical Exam Physical Exam: Constitutional: Alert oriented x 3; not in distress. Respiratory: Bilateral vesicular breath sounds Cardiovascular: RRR, no murmur, no edema Vessels: no JVD or carotid bruit Abdomen: normal bowel sounds, soft, nontender, no hepatosplenomegaly Musculoskeletal: no cyanosis or clubbing, extremities motor strength 5/5 Skin: no rashes, warm and dry normal turgor Neurologic: PERRL, EOMI, accommodation nl, no face palsy, no dysarthria CN's II- XI intact bilaterally and moves all extremities Psychiatric: A+Ox3, euthymic affect Results & Data Results & Data Vital Signs (Past 12 Hours) Vital Signs Temp Pulse Pulse Resp BP Pulse Ox O2 Del Method 05/22/23 11:26 36.3 C L 61 16 131/79 95 Room Air 05/22/23 08:43 64 05/22/23 07:52 36.4 C L 61 16 120/75 91 Room Air
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
[2023-05-22] MEDS: cefTRIAXone SODIUM 2,000 MG in DEXTROSE 5 % MINI-B 50 ML IV SCH (19:53)
[2023-05-22] MEDS ORDERED: OLANZapine 10 MG/2.1 ML SDV IM STA (20:01)
[2023-05-22] MEDS: DOCUSATE SODIUM 100 MG CAP PO SCH ×2 (20:56→20:58)
[2023-05-23] MEDS: LEVOTHYROXINE SODIUM 100 MCG TABLET PO SCH (05:41)
[2023-05-23 06:26] LABS: Hematocrit (blood only) 32.1 % (42.0-52.0); Hemoglobin 10.4 g/dl (14.0-18.0); Mean Corpuscular Hemoglobin 31.4 pg (25.0-34.0); Mean Corpuscular Hgb Conc 32.4 g/dL (32.0-36.0); Mean Platelet Volume 10.8 fL (9.4-12.4); Platelet Count 149 K/uL (130-400); RDW Standard Deviation 62.9 fL (36.4-46.3); Red Blood Count 3.31 M/uL (4.70-6.10); White Blood Count 7.27 K/ul (4.8-10.8)
[2023-05-23 06:47] LABS: BUN Creatinine Ratio 32.4 (10-20); Calcium 8.1 mg/dl (8.6-10.3); Creatinine Clr Calc Pharmacy 41.4 ml/min; Est GFR (African American) 76.8 ml/min; Est GFR (Non-African American) 66.3 ml/min; Potassium 3.7 mmol/L (3.5-5.1)
[2023-05-23] MEDS: CLOPIDOGREL BISULFATE 75 MG TAB PO SCH (08:13)
[2023-05-23] MEDS: ASPIRIN 81 MG ECTAB PO SCH (08:13)
[2023-05-23] MEDS: FINASTERIDE 5 MG TAB PO SCH (08:13)
[2023-05-23] MEDS: CYANOCOBALAMIN (B-12) 500 MCG TABLET PO SCH (08:13)
[2023-05-23] MEDS: HEPARIN SOD 5,000 UNIT/0.5 ML VIAL SQ SCH ×2 (08:13→22:00)
[2023-05-23] MEDS: POLYETHYLENE (MIRALAX) 17 GM PACK PO SCH (08:14)
[2023-05-23] MEDS: lisinopril 2.5 MG TAB PO SCH (08:14)
[2023-05-23] MEDS: ISOSORBIDE MONO EXTENDED REL 30 MG TABCR PO SCH (08:14)
[2023-05-23] MEDS: METOPROLOL SUCC 50MG EXT REL TAB PO SCH (08:14)
[2023-05-23] MEDS: TORSEMIDE 10 MG TAB PO SCH (08:14)
[2023-05-23] MEDS: ROSUVASTATIN CALCIUM 5 MG TAB PO SCH (08:14)
[2023-05-23] MEDS: OLANZAPINE 2.5 MG TAB PO SCH (10:21)
--- NOTE | 2023-05-23 15:22 | Hospitalist Progress Note ---
Date of Service May 23, 2023 Assessment & Plan (1) Altered mental status: Plan: 82-year-old male with past medical history significant for hyperlipidemia, hypothyroidism, chronic systolic CHF EF 15 to 20%, history of cardiac arrest, history of ventricular fibrillation, s/p ICD, history of CAD s/p CABG, s/p stent, CKD stage III, GERD, protein calorie malnutrition, BPH, history of prostate cancer, was brought in by son and [id number] because of confusion for last 2 days and some visual hallucinations. He is being managed with the following: Altered mental status Patient was brought to the hospital due to confusion Initial lactic acid was 2.[address] head on admission did not show any acute finding Chest x-ray personally reviewed; no acute finding Urinalysis suggestive of infection Blood cultureno growth Urinalysis culture no growth Vitamin [id number] TSH slightly elevated: Free T4 within normal limits Patient is on ceftriaxone for presumed UTI. Finished 5-day course of antibiotic. increased zyprexa dose which was started for behavioral abnormalities. Psychiatry consulted; appreciate recs. Also started on vitamin B12 supplement Elevated liver enzymes Liver enzymes found to be elevated. His total bilirubin in January was 2.9; 2.2. ALP elevated. Liver ultrasounds done; slight nodularity of liver surface which could indicate early cirrhosis. Liver enzyme elevation can secondary to congestive hepatopathy Follow-up as outpatient History of weight loss Severe malnutrition Patient reports significant weight loss over several months. Consulted speech and dietitian for recommendations. History of chronic systolic CHF EF 15 to 20% S/p ICD Continue torsemide. Continue at Toprol, Imdur. History of CAD s/p CABG S/p stents Continue aspirin, Plavix, Imdur, Toprol and rosuvastatin History of ventricular fibrillation and cardiac arrest S/p ICD Hypertension On Imdur, Toprol, lisinopril, torsemide Will monitor BPH On Proscar CKD stage III Presented creatinine 1.15 Will follow DVT prophylaxis Heparin subcu Disposition Used to live with son and [id number]. PT OT recommends rehab if family is not able to provide 24/7 care. Prior attending discussed with patient's son, [id number] at bedside on May 20; they want him to go to [place] where patient's [id number]-no-jpd works. Case management on board. Full code Admission and Anticipated Discharge Date Admission Date: May 18, 2023 Subjective Patient seen and examined at bedside. Comfortable; not in distress. Sitting up in chair. Denies fever, chills, chest pain, shortness of breath, abdominal pain or urinary symptoms. Required IM Zyprexa overnight for agitation. Increase po zyprexa dose. Physical Exam Physical Exam: Constitutional: Alert oriented x 3; not in distress. Respiratory: Bilateral vesicular breath sounds Cardiovascular: RRR, no murmur, no edema Vessels: no JVD or carotid bruit Abdomen: normal bowel sounds, soft, nontender, no hepatosplenomegaly Musculoskeletal: no cyanosis or clubbing, extremities motor strength 5/5 Skin: no rashes, warm and dry normal turgor Neurologic: PERRL, EOMI, accommodation nl, no face palsy, no dysarthria CN's II- XI intact bilaterally and moves all extremities Psychiatric: A+Ox3, euthymic affect Results & Data Results & Data Vital Signs (Past 12 Hours) Vital Signs Temp Pulse Resp BP Pulse Ox O2 Del Method 05/23/23 11:29 36.9 C 62 18 108/66 97 Room Air 05/23/23 07:47 36.6 C 61 16 137/82 92 Room Air
[2023-05-23] MEDS ORDERED: OLANZAPINE 2.5 MG TAB PO SCH (21:00)
[2023-05-23] MEDS: DOCUSATE SODIUM 100 MG CAP PO SCH (22:01)
[2023-05-23] MEDS: OLANZapine 5 MG TABLET PO SCH (23:56)
[2023-05-24] MEDS: LEVOTHYROXINE SODIUM 100 MCG TABLET PO SCH (06:11)
[2023-05-24] MEDS: METOPROLOL SUCC 50MG EXT REL TAB PO SCH ×2 (08:31→21:28)
[2023-05-24] MEDS: FINASTERIDE 5 MG TAB PO SCH (08:31)
[2023-05-24] MEDS: lisinopril 2.5 MG TAB PO SCH (08:31)
[2023-05-24] MEDS: ASPIRIN 81 MG ECTAB PO SCH (08:31)
[2023-05-24] MEDS: CYANOCOBALAMIN (B-12) 500 MCG TABLET PO SCH (08:31)
[2023-05-24] MEDS: HEPARIN SOD 5,000 UNIT/0.5 ML VIAL SQ SCH ×2 (08:31→21:28)
[2023-05-24] MEDS: CLOPIDOGREL BISULFATE 75 MG TAB PO SCH (08:31)
[2023-05-24] MEDS: ISOSORBIDE MONO EXTENDED REL 30 MG TABCR PO SCH (08:31)
[2023-05-24] MEDS: POLYETHYLENE (MIRALAX) 17 GM PACK PO SCH (08:32)
[2023-05-24] MEDS: ROSUVASTATIN CALCIUM 5 MG TAB PO SCH (08:32)
[2023-05-24] MEDS: OLANZAPINE 2.5 MG TAB PO SCH ×2 (08:32→23:42)
[2023-05-24] MEDS: TORSEMIDE 10 MG TAB PO SCH (08:32)
--- NOTE | 2023-05-24 15:16 | Hospitalist Progress Note ---
Date of Service May 24, 2023 Assessment & Plan (1) Altered mental status: Plan: 82-year-old male with past medical history significant for hyperlipidemia, hypothyroidism, chronic systolic CHF EF 15 to 20%, history of cardiac arrest, history of ventricular fibrillation, s/p ICD, history of CAD s/p CABG, s/p stent, CKD stage III, GERD, protein calorie malnutrition, BPH, history of prostate cancer, was brought in by son and [id number] because of confusion for last 2 days and some visual hallucinations. He is being managed with the following: Altered mental status Patient was brought to the hospital due to confusion Initial lactic acid was 2.[address] head on admission did not show any acute finding Chest x-ray personally reviewed; no acute finding Urinalysis suggestive of infection Blood cultureno growth Urinalysis culture no growth Vitamin [id number] TSH slightly elevated: Free T4 within normal limits Patient is on ceftriaxone for presumed UTI. Finished 5-day course of antibiotic. increased zyprexa dose which was started for behavioral abnormalities. Psychiatry consulted; appreciate recs. Also started on vitamin B12 supplement Elevated liver enzymes Liver enzymes found to be elevated. His total bilirubin in January was 2.9; 2.2. ALP elevated. Liver ultrasounds done; slight nodularity of liver surface which could indicate early cirrhosis. Liver enzyme elevation can secondary to congestive hepatopathy Follow-up as outpatient History of weight loss Severe malnutrition Patient reports significant weight loss over several months. Consulted speech and dietitian for recommendations. History of chronic systolic CHF EF 15 to 20% S/p ICD Continue torsemide. Continue at Toprol, Imdur. History of CAD s/p CABG S/p stents Continue aspirin, Plavix, Imdur, Toprol and rosuvastatin History of ventricular fibrillation and cardiac arrest S/p ICD Hypertension On Imdur, Toprol, lisinopril, torsemide Will monitor BPH On Proscar CKD stage III Presented creatinine 1.15 Will follow DVT prophylaxis Heparin subcu Disposition Used to live with son and [id number]. PT OT recommends rehab if family is not able to provide 24/7 care. Prior attending discussed with patient's son, [id number] at bedside on May 20; they want him to go to [place] where patient's lslokfmj-hb-tor works. Case management on board. Full code Admission and Anticipated Discharge Date Admission Date: May 18, 2023 Subjective Patient seen and examined at bedside. Comfortable; not in distress. Lying in bed. Denies fever, chills, chest pain, shortness of breath, abdominal pain or urinary symptoms. Did not require IM Zyprexa overnight. Continue with increased po zyprexa dose. Physical Exam Physical Exam: Constitutional: Alert oriented x 3; not in distress. Respiratory: Bilateral vesicular breath sounds Cardiovascular: RRR, no murmur, no edema Vessels: no JVD or carotid bruit Abdomen: normal bowel sounds, soft, nontender, no hepatosplenomegaly Musculoskeletal: no cyanosis or clubbing, extremities motor strength 5/5 Skin: no rashes, warm and dry normal turgor Neurologic: PERRL, EOMI, accommodation nl, no face palsy, no dysarthria CN's II- XI intact bilaterally and moves all extremities Psychiatric: A+Ox3, euthymic affect Results & Data Results & Data Vital Signs (Past 12 Hours) Vital Signs Temp Pulse Resp BP Pulse Ox O2 Del Method 05/24/23 14:40 36.7 C 64 18 107/71 94 Room Air 05/24/23 08:07 36.4 C L 70 16 110/74 92 Room Air 05/24/23 03:43 36.6 C 59 L 16 109/53 L 96 Room Air
[2023-05-24] MEDS: OLANZapine 5 MG TABLET PO SCH (21:28)
[2023-05-24] MEDS: DOCUSATE SODIUM 100 MG CAP PO SCH (21:28)
[2023-05-25] MEDS: LEVOTHYROXINE SODIUM 100 MCG TABLET PO SCH (05:40)
[2023-05-25] MEDS: ACETAMINOPHEN 325 MG TAB PO PRN (07:30)
[2023-05-25] MEDS: TORSEMIDE 10 MG TAB PO SCH (08:37)
[2023-05-25] MEDS: ASPIRIN 81 MG ECTAB PO SCH (08:37)
[2023-05-25] MEDS: OLANZAPINE 2.5 MG TAB PO SCH (08:38)
[2023-05-25] MEDS: lisinopril 2.5 MG TAB PO SCH (08:38)
[2023-05-25] MEDS: CLOPIDOGREL BISULFATE 75 MG TAB PO SCH (08:38)
[2023-05-25] MEDS: FINASTERIDE 5 MG TAB PO SCH (08:38)
[2023-05-25] MEDS: CYANOCOBALAMIN (B-12) 500 MCG TABLET PO SCH (08:39)
[2023-05-25] MEDS: ISOSORBIDE MONO EXTENDED REL 30 MG TABCR PO SCH (08:39)
[2023-05-25] MEDS: ROSUVASTATIN CALCIUM 5 MG TAB PO SCH (08:40)
[2023-05-25] MEDS: HEPARIN SOD 5,000 UNIT/0.5 ML VIAL SQ SCH ×2 (08:45→21:20)
[2023-05-25] MEDS: POLYETHYLENE (MIRALAX) 17 GM PACK PO SCH (09:26)
[2023-05-25] MEDS: METOPROLOL SUCC 50MG EXT REL TAB PO SCH ×2 (09:26→21:20)
--- NOTE | 2023-05-25 15:34 | Hospitalist Progress Note ---
Date of Service May 25, 2023 Assessment & Plan (1) Altered mental status: Plan: 82-year-old male with past medical history significant for hyperlipidemia, hypothyroidism, chronic systolic CHF EF 15 to 20%, history of cardiac arrest, history of ventricular fibrillation, s/p ICD, history of CAD s/p CABG, s/p stent, CKD stage III, GERD, protein calorie malnutrition, BPH, history of prostate cancer, was brought in by son and xcypdyun-qj-elg because of confusion for last 2 days and some visual hallucinations. He is being managed with the following: Altered mental status Patient was brought to the hospital due to confusion Initial lactic acid was 2.[address] head on admission did not show any acute finding Chest x-ray personally reviewed; no acute finding Urinalysis suggestive of infection Blood cultureno growth Urinalysis culture no growth Vitamin [id number] TSH slightly elevated: Free T4 within normal limits Patient is on ceftriaxone for presumed UTI. Finished 5-day course of antibiotic. increased zyprexa dose which was started for behavioral abnormalities. Psychiatry consulted; appreciate recs. Also started on vitamin B12 supplement Elevated liver enzymes Liver enzymes found to be elevated. His total bilirubin in January was 2.9; 2.2. ALP elevated. Liver ultrasounds done; slight nodularity of liver surface which could indicate early cirrhosis. Liver enzyme elevation can secondary to congestive hepatopathy Follow-up as outpatient History of weight loss Severe malnutrition Patient reports significant weight loss over several months. Consulted speech and dietitian for recommendations. History of chronic systolic CHF EF 15 to 20% S/p ICD Continue torsemide. Continue at Toprol, Imdur. History of CAD s/p CABG S/p stents Continue aspirin, Plavix, Imdur, Toprol and rosuvastatin History of ventricular fibrillation and cardiac arrest S/p ICD Hypertension On Imdur, Toprol, lisinopril, torsemide Will monitor BPH On Proscar CKD stage III Presented creatinine 1.15 Will follow DVT prophylaxis Heparin subcu Disposition Used to live with son and [id number]-nl-bod. PT OT recommends rehab if family is not able to provide 24/7 care. Prior attending discussed with patient's son, [id number] at bedside on May 20; they want him to go to [place] where patient's cmodsegs-ee-nto works. Case management on board. Full code Admission and Anticipated Discharge Date Admission Date: May 18, 2023 Subjective Patient seen and examined at bedside. Comfortable; not in distress. Lying in bed. Denies fever, chills, chest pain, shortness of breath, abdominal pain or urinary symptoms. Did not require IM Zyprexa overnight. Continue with increased po zyprexa dose. Patient is eating okay and moving bowels okay. Physical Exam Physical Exam: Constitutional: Alert and awake; not in distress. Respiratory: Bilateral vesicular breath sounds Cardiovascular: RRR, no murmur, no edema Vessels: no JVD or carotid bruit Abdomen: normal bowel sounds, soft, nontender, no hepatosplenomegaly Musculoskeletal: no cyanosis or clubbing, extremities motor strength 5/5 Skin: no rashes, warm and dry normal turgor Neurologic: PERRL, EOMI, accommodation nl, no face palsy, no dysarthria CN's II- XI intact bilaterally and moves all extremities Psychiatric: A+Ox3, euthymic affect Results & Data Results & Data Vital Signs (Past 12 Hours) Vital Signs Temp Pulse Resp BP Pulse Ox O2 Del Method 05/25/23 13:26 36.3 C L 64 18 101/69 94 Room Air 05/25/23 09:25 66 18 104/61 05/25/23 08:50 Room Air 05/25/23 06:58 36.5 C 63 16 126/80 94 Room Air
[2023-05-25] MEDS: OLANZapine 5 MG TABLET PO SCH (21:21)
[2023-05-25] MEDS: DOCUSATE SODIUM 100 MG CAP PO SCH (21:23)
[2023-05-26] MEDS: LEVOTHYROXINE SODIUM 100 MCG TABLET PO SCH (05:29)
[2023-05-26] MEDS: CYANOCOBALAMIN (B-12) 500 MCG TABLET PO SCH (07:35)
[2023-05-26] MEDS: ISOSORBIDE MONO EXTENDED REL 30 MG TABCR PO SCH (07:36)
[2023-05-26] MEDS: TORSEMIDE 10 MG TAB PO SCH (07:36)
[2023-05-26] MEDS: lisinopril 2.5 MG TAB PO SCH (07:36)
[2023-05-26] MEDS: ROSUVASTATIN CALCIUM 5 MG TAB PO SCH (07:37)
[2023-05-26] MEDS: CLOPIDOGREL BISULFATE 75 MG TAB PO SCH (07:37)
[2023-05-26] MEDS: HEPARIN SOD 5,000 UNIT/0.5 ML VIAL SQ SCH ×2 (07:37→21:55)
[2023-05-26] MEDS: METOPROLOL SUCC 50MG EXT REL TAB PO SCH ×2 (07:38→21:55)
[2023-05-26] MEDS: OLANZAPINE 2.5 MG TAB PO SCH (07:38)
[2023-05-26] MEDS: ASPIRIN 81 MG ECTAB PO SCH (07:39)
[2023-05-26] MEDS: FINASTERIDE 5 MG TAB PO SCH (07:39)
[2023-05-26] MEDS: POLYETHYLENE (MIRALAX) 17 GM PACK PO SCH (07:39)
[2023-05-26] MEDS: ACETAMINOPHEN 325 MG TAB PO PRN (08:50)
--- NOTE | 2023-05-26 14:37 | Hospitalist Progress Note ---
Date of Service May 26, 2023 Assessment & Plan (1) Altered mental status: Plan: 82-year-old male with past medical history significant for hyperlipidemia, hypothyroidism, chronic systolic CHF EF 15 to 20%, history of cardiac arrest, history of ventricular fibrillation, s/p ICD, history of CAD s/p CABG, s/p stent, CKD stage III, GERD, protein calorie malnutrition, BPH, history of prostate cancer, was brought in by son and [id number]-[id number] because of confusion for last 2 days and some visual hallucinations. He is being managed with the following: Altered mental status Patient was brought to the hospital due to confusion Initial lactic acid was 2.[address] head on admission did not show any acute finding Chest x-ray personally reviewed; no acute finding Urinalysis suggestive of infection Blood cultureno growth Urinalysis culture no growth Vitamin [id number] TSH slightly elevated: Free T4 within normal limits Patient is on ceftriaxone for presumed UTI. Finished 5-day course of antibiotic. increased zyprexa dose which was started for behavioral abnormalities. Psychiatry consulted; appreciate recs. Also started on vitamin B12 supplement Elevated liver enzymes Liver enzymes found to be elevated. His total bilirubin in January was 2.9; 2.2. ALP elevated. Liver ultrasounds done; slight nodularity of liver surface which could indicate early cirrhosis. Liver enzyme elevation can secondary to congestive hepatopathy Follow-up as outpatient History of weight loss Severe malnutrition Patient reports significant weight loss over several months. Consulted speech and dietitian for recommendations. History of chronic systolic CHF EF 15 to 20% S/p ICD Continue torsemide. Continue at Toprol, Imdur. History of CAD s/p CABG S/p stents Continue aspirin, Plavix, Imdur, Toprol and rosuvastatin History of ventricular fibrillation and cardiac arrest S/p ICD Hypertension On Imdur, Toprol, lisinopril, torsemide Will monitor BPH On Proscar CKD stage III Presented creatinine 1.15 Will follow DVT prophylaxis Heparin subcu Disposition Used to live with son and tbijpucz-jz-lwi. PT OT recommends rehab if family is not able to provide 24/7 care. Prior attending discussed with patient's son, [id number]-[id number] at bedside on May 20; they want him to go to [place] where patient's dgoyftrz-rp-acu works. Case management on board.Likely DC tomorrow. Full code Admission and Anticipated Discharge Date Admission Date: May 18, 2023 Subjective Patient seen and examined at bedside. Comfortable; not in distress. Lying in bed. Denies fever, chills, chest pain, shortness of breath, abdominal pain or urinary symptoms. Did not require IM Zyprexa overnight. Continue with increased po zyprexa dose. Patient is eating okay and moving bowels okay. Physical Exam Physical Exam: Constitutional: Alert and awake; not in distress. Respiratory: Bilateral vesicular breath sounds Cardiovascular: RRR, no murmur, no edema Vessels: no JVD or carotid bruit Abdomen: normal bowel sounds, soft, nontender, no hepatosplenomegaly Musculoskeletal: no cyanosis or clubbing, extremities motor strength 5/5 Skin: no rashes, warm and dry normal turgor Neurologic: PERRL, EOMI, accommodation nl, no face palsy, no dysarthria CN's II- XI intact bilaterally and moves all extremities Psychiatric: A+Ox3, euthymic affect Results & Data Results & Data Vital Signs (Past 12 Hours) Vital Signs Temp Pulse Resp BP Pulse Ox O2 Del Method 05/26/23 08:51 Room Air 05/26/23 07:32 36.7 C 85 16 114/78 95 Room Air
[2023-05-26] MEDS: OLANZapine 5 MG TABLET PO SCH (21:55)
[2023-05-26] MEDS: DOCUSATE SODIUM 100 MG CAP PO SCH (23:06)
[2023-05-27] MEDS: LEVOTHYROXINE SODIUM 100 MCG TABLET PO SCH (06:01)
[2023-05-27] MEDS: ASPIRIN 81 MG ECTAB PO SCH (08:53)
[2023-05-27] MEDS: CYANOCOBALAMIN (B-12) 500 MCG TABLET PO SCH (08:54)
[2023-05-27] MEDS: ROSUVASTATIN CALCIUM 5 MG TAB PO SCH (08:54)
[2023-05-27] MEDS: OLANZAPINE 2.5 MG TAB PO SCH (08:54)
[2023-05-27] MEDS: ISOSORBIDE MONO EXTENDED REL 30 MG TABCR PO SCH (08:54)
[2023-05-27] MEDS: lisinopril 2.5 MG TAB PO SCH (08:54)
[2023-05-27] MEDS: METOPROLOL SUCC 50MG EXT REL TAB PO SCH (08:54)
[2023-05-27] MEDS: CLOPIDOGREL BISULFATE 75 MG TAB PO SCH (08:54)
[2023-05-27] MEDS: FINASTERIDE 5 MG TAB PO SCH (08:54)
[2023-05-27] MEDS: TORSEMIDE 10 MG TAB PO SCH (08:55)
[2023-05-27] MEDS: HEPARIN SOD 5,000 UNIT/0.5 ML VIAL SQ SCH (08:59)
[2023-05-27] MEDS: POLYETHYLENE (MIRALAX) 17 GM PACK PO SCH (09:08)
--- NOTE | 2023-05-27 12:19 | Discharge Summary ---
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 Seems no falls. Patient currently alert and awake and oriented. Currently family not in the room. His main concern is losing weight. Denies any headache. Denies cough. No runny nose or sore throat. No chest pain. No shortness of breath. No nausea. No abdominal pain. Normal bowel and bladder movements as per patient.As per cardiology notes patient had 2 cardiac arrest. First in 2009 when he received secondary prevention ICD. Second cardiac arrest in 2020 and was rescued by his ICD. He is having significant weight loss and chris cachexia. Amiodarone was stopped because of possible toxicity .Also CAT scan of the chest was showing enlargement of left atrium with compression of the esophagus which is not unexpected considering his severe heart disease and could be contributing to his anorexia as per cardiology notes. Seems lately his appetite is slightly better. Past medical history. As mentioned above Past surgical history. CABG in 1980 and with redo in 1999. S/p ICD. status postcardiac stents. Laparoscopic cholecystectomy. Appendectomy. Tonsillectomy. Removal of bladder stone. Social history. No smoking. No alcohol use. No drug use. Family history. All brothers have heart disease. Father had CVA. Mother had lung cancer. Admission Exam Per Admitting Provider General- Not in distress Head- atraumatic Eyes- PERRL. ENT- oropharynx clear Neck- supple, no JVD. Lungs- clear to auscultation no wheezing or crackles. Heart- regular rhythm; no murmur, no gallop. Abdomen- normal bowel sounds, soft, nontender, no distension. Extremities- no pretibial edema, no erythema t Neuro- alert, oriented x 3; PERRL,no facial palsy; no dysarthria; moves extremities. Skin- warm & dry Principal Diagnosis Altered mental status Delirium Discharge Exam Constitutional: Alert and awake; not in distress. Respiratory: Bilateral vesicular breath sounds Cardiovascular: RRR, no murmur, no edema Vessels: no JVD or carotid bruit Abdomen: normal bowel sounds, soft, nontender, no hepatosplenomegaly Musculoskeletal: no cyanosis or clubbing, extremities motor strength 5/5 Skin: no rashes, warm and dry normal turgor Neurologic: PERRL, EOMI, accommodation nl, no face palsy, no dysarthria CN's II- XI intact bilaterally and moves all extremities Psychiatric: A+Ox3, euthymic affect Discharge Data Allergies Allergy/AdvReac Type Severity Reaction Status Date / Time pantoprazole [From Protonix] Allergy Intermediate Hives Verified 05/17/23 22:21 sucralfate Allergy Intermediate Hives Verified 05/17/23 22:21 Consultations 05/18/23 00:11 ED Decision to Admit Stat 05/20/23 13:04 Consult Psychiatry Routine Ordered Studies 05/17/23 22:06 CT head/brain wo con Stat 05/18/23 08:11 US liver Routine Hospital Course (1) Altered mental status: 82-year-old male with past medical history significant for hyperlipidemia, hypothyroidism, chronic systolic CHF EF 15 to 20%, history of cardiac arrest, history of ventricular fibrillation, s/p ICD, history of CAD s/p CABG, s/p stent, CKD stage III, GERD, protein calorie malnutrition, BPH, history of prostate cancer, was brought in by son and [id number] because of confusion for last 2 days and some visual hallucinations. He was managed for the following: Altered mental status Patient was brought to the hospital due to confusion Initial lactic acid was 2.[address] head on admission did not show any acute finding Chest x-ray personally reviewed; no acute finding Urinalysis suggestive of infection Blood cultureno growth Urinalysis culture no growth Vitamin [id number] TSH slightly elevated: Free T4 within normal limits Patient is on ceftriaxone for presumed UTI. Finished 5-day course of antibiotic. increased zyprexa dose which was started for behavioral abnormalities. Psychiatry consulted; appreciate recs. Also started on vitamin B12 supplement Behavioral abnormalities were stable on current dose of Zyprexa which is being prescribed upon discharge. Elevated liver enzymes Liver enzymes found to be elevated. His total bilirubin in January was 2.9; 2.2. ALP elevated. Liver ultrasounds done; slight nodularity of liver surface which could indicate early cirrhosis. Liver enzyme elevation can secondary to congestive hepatopathy Follow-up as outpatient History of weight loss Severe malnutrition Patient reports significant weight loss over several months. Consulted speech and dietitian for recommendations. History of chronic systolic CHF EF 15 to 20% S/p ICD Continue torsemide. Continue at Toprol, Imdur. History of CAD s/p CABG S/p stents Continue aspirin, Plavix, Imdur, Toprol and rosuvastatin History of ventricular fibrillation and cardiac arrest S/p ICD Hypertension On Imdur, Toprol, lisinopril, torsemide Will monitor BPH On Proscar CKD stage III Presented creatinine 1.15 Will follow DVT prophylaxis Heparin subcu Full code Patient is being discharged to SNF with following instruction at the point of discharge: Follow-up with your primary care physician within a week time and likely you will need labs CBC/CMP/magnesium/phosphorus. Because of your agitated behavior while in the hospital you have been put on Zyprexa 2.5 mg in the morning and 5 mg in the night. This drug use needs to be continuously monitored and can be tapered by 2.5 mg every 1 week once you are settled into your new placement to find the lowest effective dose to control your agitation/behavioral abnormalities. You will need continued evaluation by your physician upon discharge for determining the lowest effective dose and for ongoing conversation regarding risks versus benefit for the continued use of this drug. Your liver enzymes were elevated while in the hospital, likely secondary to congestive hepatopathy. You will need repeat LFT done in a week time. C oordinate with your PCP office to set up the test. Take your medications as prescribed. Please make sure that you are able to get your medications today by calling your pharmacy before you leave the hospital so that your treatment continuity is not broken. Home Health Attestation I certify that this patient is under my care and that I, or a physicians assistant hvac mechanic working with me, had a face to-face encounter that meets the home health [id number] encounter requirements with this patient. The encounter with the patient was in whole, or in part, for the following medical condition, which is the primary reason for home health care (list medical condition): I certify that, based on my findings, the following services are medically necessary home health services: My clinical findings support the need for the above services because: Further, I certify that my clinical findings support that this patient is homebound (i.e. absences from home require considerable and taxing effort and are for medical reasons or muslim services or infrequently or of short duration when for other reasons) because: Certification for Home Health Services: Based on the above findings, I certify that this patient is confined to the home and needs intermittent senior living care, physical therapy and/or speech therapy or continues to need occupational therapy. The patient is under my care, and I have initiated the establishment of the plan of care. This patient will be followed by a physician who will periodically review the plan of care. Total Time Total Time Spent Total Time Spent (In Minutes): 45 Discharge Plan Discharge Items Patient Disposition: Transfer [facility] Reason For Visit: CONFUSION, UTI Discharge Diagnosis: Altered mental status Delirium Activity: Resume your previous activity Non-emergency contact: Primary Care Provider Call non-emergency contact if: you have any medication questions and your symptoms worsen Follow-up/Referrals: Roslyn Gale DO [Primary Care Provider] - Diet: Heart Healthy Addtl Attending Provider Instructions: Follow-up with your primary care physician within a week time and likely you will need labs CBC/CMP/magnesium/phosphorus. Because of your agitated behavior while in the hospital you have been put on Zyprexa 2.5 mg in the morning and 5 mg in the night. This drug use needs to be continuously monitored and can be tapered by 2.5 mg every 1 week once you are settled into your new placement to find the lowest effective dose to control your agitation/behavioral abnormalities. You will need continued evaluation by your physician upon discharge for determining the lowest effective dose and for ongoing conversation regarding risks versus benefit for the continued use of this drug. Your liver enzymes were elevated while in the hospital, likely secondary to congestive hepatopathy. You will need repeat LFT done in a week time. Coordinate with your PCP office to set up the test. Take your medications as prescribed. Please make sure that you are able to get your medications today by calling your pharmacy before you leave the hospital so that your treatment continuity is not broken. Pending Studies at Discharge: No Stand-Alone Forms: My [employer] Skilled Items Patient informed of condition?: Yes DNR: No Discharge Level of Care: Skilled Communicable Disease: No Discharge Prognosis: Stable Lines: None Urinary Catheter: No Medications and DC Order Prescriptions: New olanzapine 2.5 mg Tablet 2.5 mg PO QAM Qty: 30 0RF olanzapine 5 mg Tablet 5 mg PO HS Qty: 30 0RF cyanocobalamin (vitamin B-12) 500 mcg Tablet 500 mcg PO QAM Qty: 30 0RF Continued clopidogrel [Plavix] 75 mg Tablet 75 mg PO QAM finasteride [Proscar] 5 mg Tablet 5 mg PO QAM aspirin [Thomas Low Dose Aspirin] 81 mg Tablet,Delayed Release (Dr/Ec) 81 mg PO QAM rosuvastatin 5 mg tablet 5 mg PO DAILY lisinopril 2.5 mg tablet 2.5 mg PO QAM potassium chloride 10 mEq capsule, extended release 10 meq PO BID isosorbide mononitrate 30 mg tablet extended release 24 hr 30 mg PO QAM levothyroxine 100 mcg tablet 100 mcg PO DAILYBB docusate sodium 100 mg Capsule 100 mg PO HS polyethylene glycol 3350 [Miralax] 17 gram/dose Powder 17 g PO DAILY torsemide 10 mg tablet 5 mg PO QAM metoprolol succinate 50 mg tablet extended release 24 hr 50 mg PO BID Rx Instructions: PER [facility]--"ONLY TAKING ONCE DAILY NON ADHERENCE" Discharge Orders: Discharge Order (Routine); Ordered 05/27/23 Ordered By: Alisha Son Admission Data Admit Date/Time: 05/18/23 05:10 Attending Provider: Alisha Son Admit Provider: Jake Thompson Primary Care Provider: Roslyn Gale Other Providers: Jake Thompson; Becky Tan; Blanca Ewing; Dion Reeves; Ezequiel Miranda
== END 2023-05-27 13:08 | DRG 689 ==
LOC: ED 21:28 → SUATTDRO 05-18 05:10 → EDINP 05-18 05:10 → 2W 05-18 05:44 → 3W 05-24 13:53

== ENCOUNTER 2023-06-10 11:24 | Inpatient (IN) ==
--- NOTE | 2023-06-10 12:01 | Emergency Department Note ---
Impression & Plan Hypoxia, Acute exacerbation of CHF (congestive heart failure), Pneumonia, ARNOLD (acute kidney injury), Elevated troponin ED Provider Note Provider: Willie Swann MD DATE OF SERVICE: 06/10/2023 CHIEF COMPLAINT: Weak not ambulating, low oxygen HISTORY OF PRESENT ILLNESS: Patient is a 82-year-old gentleman history of hyperlipidemia, hypothyroidism, CHF with a history of cardiac arrest and V-fib status post AICD, CAD status post CABG and stents, CKD, GERD, BPH, prostate cancer brought via ambulance from home with increased weakness. Evidently was hospitalized here several weeks ago and spent the last 2 weeks in a nursing facility/rehab. Discharged on Saturday. Patient states he become more fatigued. Reports feeling somewhat short of breath. EMS reports initially he was 77% on room air. No reported history of oxygen usage. States he did fall recently but cannot give me a lot of details. Does state he has bad knees. Appears somewhat fatigued. Denies nausea or abdominal pain. Denies chest pain at this time. Denies headache. PAST MEDICAL HISTORY: As noted above MEDICATIONS: Reviewed home medication list. SOCIAL HISTORY: Normally resides at home PHYSICAL EXAM: GENERAL: alert and oriented to person but weak and fatigued in no acute distress on stretcher Head: normocephalic and atraumatic EYES: No injection, discharge or icterus. PERRL, EOMI. NECK: Trachea midline. Supple. ENT: Mucous membranes pink and moist. LUNGS: Airway patent. No retractions. Breath sounds coarse with crackles in the bases HEART: Regular rate and rhythm. No chest wall tenderness ABDOMEN: Soft and non-tender, without guarding or rebound. SKIN: Acyanotic, warm, dry with some scattered healing abrasions and contusions on the forearms. EXTREMITIES: Without tenderness with trace pedal edema bilaterally lower extremities. As above some healing contusions and abrasions of the forearms without significant erythema and soft compartments. NEUROLOGICAL: No focal deficits. No aphasia. No facial droop or slurred speech but occasionally speech trails off and mumbles. Normal strength and tone in the extremities. Sensation to gross touch normal. EK bpm sinus rhythm with frequent PVCs. Due to respiratory artifact. Inferior lateral T wave inversions noted. No clear acute ST segment elevation with intraventricular conduction block. Compared to previous from May 17 of this year or respiratory artifact and now with PVCs. CONTINUOUS CARDIAC MONITORING: was ordered and showed a heart rate of 70s bpm in sinus rhythm with frequent PVCs GCS 15. Patient's laboratory studies and imaging reviewed. Differential includes Infection, dehydration, metabolic abnormality, hypo/hyperglycemia, electrolyte disturbance, anemia, hypoxia, cardiac sources, intracerebral event, toxicologic, neurologic, as well as other pathologies. IMPRESSION/MEDICAL DECISION MAKING: Patient with increased weakness now noted to be hypoxic. Possibly some falls. Patient does not seem to be the best historian. As such we will obtain a CT of the head as well as CT of the cervical spine. No obvious deformity on exam. Some appear to be healing abrasions and contusions in the forearms. Denies active chest pain or abdominal pain. Is hypoxic here on room air. Reviewed recent hospitalization here and discharge summary with admission for some confusion. History of heart failure but does not appear severely fluid overloaded on clinical exam. Will obtain chest x-ray as well as VBG. VBG reassuring without hypercarbia or acidosis. Question how much of this may be some underlying confusion based on prior discharge summary. Had extensive workup previously with negative blood and urine cultures. Patient blood work here again without significant VBG abnormality but a leukocytosis today of 14 which is new. Stable mild anemia hemoglobin 11.3 near baseline. Chemistries do show significant worsened renal function creatinine 2.4 today with a new troponin elevation of 84 as well as a BNP over 4000. BNP is appear chronically elevated. Did gentle 250 mL fluid bolus given but holding additional given possibility of heart failure. Given possibility of fall CT of the head and cervical spine obtained without significant new acute traumatic injury noted with a left upper lobe consolidation noted as well as fusion here. Will cover broadly with Zosyn for antimicrobial coverage given his recent hospitalization. Respiratory viral panel is completed. Chest x-ray question of fluid overload versus possible superimposed infection. LFTs somewhat worse with elevated bilirubin of 5. With the ARNOLD noted we will complete CT scans of the chest and abdomen pelvis contrast for further evaluation to exclude obstructive pathology and further differentiation of lung parenchyma. Lactate minimally elevated at 2.6 procalcitonin is elevated 2.5. 250 mL of normal saline given his fluid bolus to evaluate for response given concerns for heart failure but with concerning evidence for possible sepsis. Imaging does later reveal significant and intra-abdominal ascites. Unclear exact etiology of this is related to fluid overload. Doubt bleeding given his stability and lack of significant anemia. No hydronephrosis but with the bladder distention likely related to enlarged prostate, will attempt Barrera placement. CT of the chest with multifocal airspace opacities dense left upper lobe and lingula possibly pneumonia versus pulmonary edema. Updated patient and advised him of the need for further hospitalization here. Hospitalist team contacted. Given his frail state will defer any anticoagulation at this time as he is already on aspirin and Plavix. Low suspicion again this is ACS/CAD. DIAGNOSIS: Pneumonia, hypoxic respiratory failure, weakness, elevated bilirubin, ARNOLD DISPOSITION: Hospitalist will evaluate Patient was agreeable with this plan. Critical Care I have personally spent 48 minutes of critical care time in the direct management of this patient. This includes bedside care, interpretation of diagnostic studies, and testing, discussion with consultants, patient, and other required patient management activities. These 48 minutes is in excess of all separately billable procedures. 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 Pacemaker PLACED 2012 LAST CHECKED VIA REMOTE 09/20/2017 ICD (implantable cardioverter-defibrillator) in place PLACED 2012 @ [facility] LAST CHECKED VIA REMOTE 09/20/2017 Systolic CHF HTN (hypertension) GERD (gastroesophageal reflux disease) Hypothyroidism CKD (chronic kidney disease) stage 3, GFR 30-59 ml/min Prostate cancer Dx 2011, surveillance only BPH (benign prostatic hyperplasia) H/O cardiac arrest Stable angina pectoris Ischemic cardiomyopathy EF 30-35% H/O myocardial ischemia CAD (coronary artery disease) Surgical History (System 06/10/23 @ 11:33 by Ricarda Mejia) History of tonsillectomy History of appendectomy Encounter for insertion of cardiac resynchronization therapy defibrillator History of cardiac cath X6 STENTS (2012 & 2014 [place]) UNSURE OF DATES -- WILL BRING STENT CARDS DOS H/O two vessel coronary artery bypass graft 1990 and 1999 Family History Other Coronary heart disease Social History (System 06/10/23 @ 11:33 by Ricarda Mejia) Smoking Status: Never smoker Second Hand Exposure: No; Do You Dip or Chew Tobacco: No; Hx Alcohol Use: No Hx Substance Use: No Preferred Language: Citizen Of [place] Communication Ability: Effective Manager Payroll Required: No Beliefs That Will Affect Care: None marital status: Unknown Current Living Situation: Family Feels Safe at Home: Yes Assistive Devices: Walker Allergies Allergies Allergy/AdvReac Type Severity Reaction Status Date / Time pantoprazole [From Protonix] Allergy Intermediate Hives Verified 06/10/23 14:41 sucralfate Allergy Intermediate Hives Verified 06/10/23 14:41 Home Meds Home Medications Medication Instructions Recorded Confirmed aspirin 81 mg tablet,delayed 81 mg PO QAM 01/16/18 06/10/23 release (Thomas Low Dose Aspirin) clopidogrel 75 mg tablet (Plavix) 75 mg PO QAM 01/16/18 06/10/23 finasteride 5 mg tablet (Proscar) 5 mg PO QAM 01/16/18 06/10/23 rosuvastatin 5 mg tablet 5 mg PO DAILY 01/01/22 06/10/23 metoprolol succinate 50 mg 50 mg PO BID 09/25/22 06/10/23 tablet,extended release 24 hr docusate sodium 100 mg capsule 100 mg PO BID 05/17/23 06/10/23 isosorbide mononitrate 30 mg 30 mg PO QAM 05/17/23 06/10/23 tablet,extended release 24 hr polyethylene glycol 3350 17 17 g PO DAILY 05/17/23 06/10/23 gram/dose oral powder (Miralax) potassium chloride 10 mEq 10 meq PO BID 05/17/23 06/10/23 capsule,extended release donepezil 5 mg tablet (Aricept) 5 mg PO DAILY 06/10/23 06/10/23 famotidine 20 mg tablet 20 mg PO DAILY 06/10/23 06/10/23 levothyroxine 112 mcg tablet 112 mcg PO DAILY 06/10/23 06/10/23 lisinopril 2.5 mg tablet 2.5 mg PO DAILY 06/10/23 06/10/23 nirmatrelvir 150 mg-ritonavir 100 0 ea PO .COMPLEX 06/10/23 06/10/23 mg tablets in a dose pack (Paxlovid) olanzapine 2.5 mg tablet 2.5 mg PO DAILY 06/10/23 06/10/23 olanzapine 5 mg tablet 5 mg PO QDD 06/10/23 06/10/23 torsemide 10 mg tablet 5 mg PO DAILY 06/10/23 06/10/23 Results & Data (ED) Vital Signs Vital Signs - 24 hr 06/10/23 11:38 06/10/23 11:45 06/10/23 11:50 Temperature 37.4 C Temperature Source Oral Pulse Rate 82 88 Respiratory Rate 15 Blood Pressure 119/77 Blood Pressure Mean 91 Pulse Oximetry 83 L 96 Oxygen Delivery Method Room Air Nasal Cannula Oxygen Flow Rate 4 Sepsis Recent Fever Within 48 Hours No Sepsis New/Unexplained Change in Mental Status No Sepsis Action Taken by Nursing No Action Required Laboratory Data 06/10/23 11:47 06/10/23 11:47 Lab Results 06/10/23 06/10/23 Range/Units 11:47 13:00 WBC 14.34 H (4.8-10.8) K/ul RBC 3.68 L (4.70-6.10) M/uL Hgb 11.3 L (14.0-18.0) g/dl Hct 34.1 L (42.0-52.0) % MCV 92.7 (80.0-100.0) fL MCH 30.7 (25.0-34.0) pg MCHC 33.1 (32.0-36.0) g/dL RDW Std Deviation 59.4 H (36.4-46.3) fL RDW Coeff of Ángel 17.7 H (11.5-14.5) % Plt Count 167 (130-400) K/uL MPV 10.6 (9.4-12.4) fL Immature Gran % (Auto) 1.5 % Neut % (Auto) 94.0 % Lymph % (Auto) 2.6 % School[place] % (Auto) 1.8 % Eos % (Auto) 0.0 % Baso % (Auto) 0.1 % Neut # (Auto) 13.48 H (1.40-6.50) K/uL Lymph # (Auto) 0.37 L (1.20-3.40) K/uL Schoolcraft # (Auto) 0.26 (0.11-0.59) K/uL Eos # (Auto) 0.00 (0.00-0.50) K/uL Baso # (Auto) 0.02 (0.00-0.20) K/uL Immature Gran # (Auto) 0.21 H (0.01-0.20) K/uL Toxic Vacuolation 3+ Polychromasia 1+ Echinocytes 2+ PT 18.5 H (9.0-12.0) Seconds INR 1.7 H (0.9-1.1) VBG pH 7.38 (7.36-7.41) VBG pCO2 39 (38-50) mmHg VBG pO2 36 mmHg VBG HCO3 23 mmol/L VBG O2 Saturation < 60.0 % VBG Base Excess -1.8 mEq/L Sodium 137 (136-145) mmol/L Potassium 4.7 (3.5-5.1) mmol/L Chloride 104 (98-107) mmol/L Carbon Dioxide 20 L (21-32) mmol/L Anion Gap 13 H (3-11) BUN 50 H (6-23) mg/dl Creatinine 2.44 H (0.6-1.4) mg/dl Est Cr Clr Drug Dosing 18.5 ml/min Est GFR ( Amer) 27.7 ml/min Est GFR (Non-Af Amer) 23.9 ml/min BUN/Creatinine Ratio 20.5 H (10-20) Glucose 83 (70-99(Fasting)) mg/dl Lactate 2.6 H* (0.4-2.0) mmol/L Calcium 8.5 L (8.6-10.3) mg/dl Magnesium 2.5 H (1.7-2.4) mg/dl Total Bilirubin 5.3 H (0.2-1.0) mg/dl AST 86 H (13-39) U/L ALT 59 H (7-52) U/L Alkaline Phosphatase 165 H (34-104) U/L Total Creatine Kinase 110 (30-223) U/L Troponin I High Sens 84.7 H* (0-20) pg/ml B-Natriuretic Peptide 4052 H (0-100) pg/ml Total Protein 6.5 (6.0-8.3) gm/dl Albumin 2.9 L (3.4-5.0) gm/dl Globulin 3.6 (2.5-4.0) gm/dl Albumin/Globulin Ratio 0.8 L (0.9-2) Lipase 77 (11-82) U/L Procalcitonin 2.57 H (0-0.5) ng/ml TSH 3.088 (0.300-4.500) uIu/ml Adenovirus (PCR) Not Detected (NotDetected) B. pertussis DNA (PCR) Not Detected (NotDetected) B.parapertussis DNA PCR Not Detected (NotDetected) C. pneumoniae DNA (PCR) Not Detected (NotDetected) Coronavirus OC43 (PCR) Not Detected (NotDetected) Coronavirus HKU1 (PCR) Not Detected (NotDetected) Coronavirus 229E (PCR) Not Detected (NotDetected) SARS-CoV-2 (PCR) Not Detected (NotDetected) Coronavirus NL63 (PCR) Not Detected (NotDetected) Human Metapneumovir PCR Not Detected (NotDetected) Influenza Type A (PCR) Not Detected (NotDetected) Influenza Type B (PCR) Not Detected (NotDetected) M. pneumoniae (PCR) Not Detected (NotDetected) Parainfluenza 1 (PCR) Not Detected (NotDetected) Parainfluenza 2 (PCR) Not Detected (NotDetected) Parainfluenza 3 (PCR) Not Detected (NotDetected) Parainfluenza 4 (PCR) Not Detected (NotDetected) RSV (PCR) Not Detected (NotDetected) Entero/Rhino (PCR) Not Detected (NotDetected) Administered Medications Doxycycline Hyclate 100 mg/ (Dextrose) 100 mls @ 50 mls/hr IV Q12H [facility] Stop: 06/17/23 15:44 Last Admin: 06/10/23 16:37 Dose: 50 mls/hr Documented By: Sodium Chloride (Nss) 1,000 mls @ 80 mls/hr IV .[id number] [facility] Stop: 06/11/23 16:44 Last Admin: 06/10/23 16:37 Dose: 80 mls/hr Documented By: AB Discontinued Medications Piperacillin Sod/Tazobactam Sod (Zosyn) 4.5 gm in 100 mls @ 200 mls/hr IV NOW ONE Stop: 06/10/23 13:10 Last Infusion: 06/10/23 15:27 Dose: Infused Documented By: Admin: 06/10/23 13:28 Dose: 200 mls/hr Documented By: CORA Sodium Chloride (Nss) 250 mls @ 999 mls/hr IV .Q16M ONE Stop: 06/10/23 13:22 Last Infusion: 06/10/23 15:27 Dose: Infused Documented By: Admin: 06/10/23 13:29 Dose: 999 mls/hr Documented By: KV Imaging Data Radiologist's Impression: Chest X-Ray 06/10/23 11:38 XR chest 1V portable HISTORY: 82 years-old Male weakness acute weakness COMPARISON: Chest CT of same day TECHNIQUE: AP view of the chest FINDINGS: Cardiac silhouette is enlarged. Median sternotomy with left subclavian pacer/ICD. Left greater than right layering pleural effusions. Pulmonary vascular congestion with interstitial coarsening. 1.7 cm nodular density of the lateral segment right middle lobe, better seen on the comparison chest CT. Bilateral airspace opacities are most pronounced throughout the left lung. Degenerative changes of the shoulders and spine. IMPRESSION: 1. Cardiomegaly with pulmonary edema. 2. Left greater than right pleural effusions. 3. Multifocal airspace opacities which are most pronounced throughout the left lung may represent asymmetric alveolar pulmonary edema versus superimposed pneumonia. ACT 112: Negative or not required by law. The above report was generated using voice recognition software. It may contain grammatical, syntax or spelling errors. Electronically signed by: Ghanshyam Jon M.D. 06/10/2023 1:[address] 06/10/23 11:[address] DOSE: HISTORY: Multiple falls TECHNIQUE: Multiaxial CT images of the head were performed without the use of intravenous contrast. Automated exposure control was utilized for this study. A dose lowering technique was utilized adhering to the principles of ALARA. Comparison: Head CT 05/17/2023. Findings: The paranasal sinuses and mastoid air cells are clear. The calvarium and skull base are intact. There is no mass, hematoma, midline shift, acute infarct. White matter hypodensity is nonspecific but suggestive of microvascular ischemic change. The ventricles and sulci demonstrate mild age-related involutional changes. Impression: No acute intracranial abnormality. ACT 112: Negative or not required by law. Electronically signed by: Mitul Muñoz M.D. 06/10/2023 12:[address] 06/10/23 11:39 CT SCAN OF THE CERVICAL SPINE CLINICAL HISTORY: Fall. COMPARISON STUDY: No priors. TECHNIQUE: CT scan of the cervical spine is performed from the skull base to the upper thoracic spine. Images are reviewed in the axial, sagittal, and coronal planes. IV contrast was not administered for this examination. A dose lowering technique was utilized adhering to the principles of ALARA. CT DOSE: 1171.09 mGy.cm FINDINGS: Skeletal structures: The skeletal structures are osteopenic. There is no evidence of fracture or subluxation involving the cervical spine. Vertebral body height is maintained. There is 3 mm of anterolisthesis at C4-C5. Alignment is otherwise preserved. There is straightening of the cervical lordosis. Small anterior osteophytes are seen throughout. The odontoid process and lateral masses are intact. The atlantoaxial articulation is preserved noting productive degenerative change. The spinous processes appear intact. There is mild to moderate multilevel cervical spondylosis. Uncovertebral and facet arthropathy contribute to neural foraminal narrowing at several levels. Midline sternotomy wires are noted. Intervertebral discs: There is moderate disc space narrowing at C3-C4 and severe disc space narrowing at C6-C7. Mild narrowing is noted at the remaining cervical levels. Central canal: Posterior disc osteophyte complexes at C3-C4 and C6-C7 may contribute to mild acquired compromise of the central canal. Soft tissues: There is diffuse body wall edema. The prevertebral soft tissues are normal. There is atherosclerotic calcification of the carotid bulbs. Pacemaker leads are seen at the left thoracic inlet. Calvarium: The visualized calvarium at the skull base appears intact. Brain parenchyma: Partially visualized brain parenchyma at the skull base is within normal limits. Sinuses and mastoids: The visualized paranasal sinuses are clear. The mastoid air cells are well pneumatized. Lung apices: A left pleural effusion and dense left upper lobe consolidation is partially visualized. IMPRESSION: 1. There is no evidence of fracture or subluxation involving the cervical spine. 2. Osteopenia and spondylotic change as above. 3. A left pleural effusion and dense left upper lobe airspace consolidation is partially visualized. Correlate clinically. ACT 112: Negative or not required by law. Electronically signed by: Chuck Pacheco M.D. 06/10/2023 12:33 PM Abdomen/Pelvis CT 06/10/23 12:[address] WITHOUT CONTRAST CT DOSE: HISTORY: Acute kidney injury, hypoxia, LFTs/bili elevated TECHNIQUE: Multiaxial CT images of the abdomen and pelvis were performed without contrast. A dose lowering technique was utilized adhering to the principles of ALARA. COMPARISON STUDY: Abdomen and pelvis CT 10/11/2010. FINDINGS: The lung bases will be reported on the same day chest CTA. The heart is enlarged. A pacemaker wire is noted. Small right and moderate left pleural effusions. Patchy bibasilar densities are noted. There is mild motion artifact. No pneumoperitoneum. No pneumatosis. There are healed right anterior rib fractures. No acute fractures identified. There are poststernotomy changes. Severe body wall edema. Surgical clips within the left groin. Prior prostatectomy. Mild periportal edema. No hepatic or splenic masses. The unenhanced pancreas and adrenal glands are unremarkable. There are few punctate bilateral renal calculi. There is an exophytic 13 mm hypodense lesion within the left kidney on image 133. This is indeterminate but favors a hyperdense cyst. There are few additional bilateral renal hypodense lesions with the largest on the right measuring 2 cm. These are also technically indeterminate on this noncontrast study but statistically represent cysts. No ureteral stones. No hydronephrosis. Moderate calcified plaque within the normal caliber abdominal aorta. No retroperitoneal or pelvic lymphadenopathy. The bladder is moderately distended. This may be secondary to the enlarged prostate gland. There are few small bladder diverticula are noted. Moderate ascites. Suboptimal evaluation for bowel pathology due to the lack of intravenous and oral contrast. However, there is no definite bowel wall thickening or obstruction. Colonic diverticulosis. No evidence for acute diverticulitis. Questionable thickening of the ascending colon is likely due to underdistention. IMPRESSION: 1. Moderate ascites with severe body wall edema, mild periportal edema, and bilateral pleural effusions. 2. No definite bowel wall thickening or obstruction. Questionable thickening of the ascending colon is likely due to underdistention. 3. Colonic diverticulosis. No evidence for acute diverticulitis. 4. The bladder is moderately distended. This may be due to the enlarged prostate gland. 5. Bilateral nephrolithiasis. No hydronephrosis. 6. Additional findings as described above. ACT 112: Negative or not required by law. Electronically signed by: Mitul Muñoz M.D. 06/10/2023 1:[address] 06/10/23 12:41 CT SCAN OF THE CHEST WITHOUT IV CONTRAST CLINICAL HISTORY: Hypoxia. COMPARISON STUDY: Chest x-ray dated 06/10/2023. Chest CT dated 12/31/2021. TECHNIQUE: CT scan of the thorax was performed from the thoracic inlet to the upper abdomen. Images are reviewed in the axial, sagittal, and coronal planes. IV contrast was not administered for this examination as per the referring clinician. A dose lowering technique was utilized adhering to the principles of ALARA. CT DOSE: 1144.95 mGy.cm FINDINGS: Thyroid: Imaged portions of the thyroid gland are normal in size and attenuation. Thoracic aorta: There is atherosclerotic calcification of the thoracic aorta, which is normal in caliber and demonstrates standard 3-vessel arch anatomy. Heart: The patient is status post midline sternotomy. A cardiac pacemaker is seen in the left chest wall. The heart is markedly enlarged and without pericardial effusion. The coronary arteries are densely calcified. There is diminished attenuation of the cardiac blood pool is compared to the myocardium suggesting anemia. The main pulmonary arteries are dilated suggesting pulmonary artery hypertension. Lungs and pleural spaces: Emphysematous change is noted. There are small right and moderate left pleural effusions with dependent atelectasis. Intralobular septal thickening suggests congestive failure. There are multifocal airspace opacities seen throughout both lungs with dense airspace consolidation in the left upper lobe and lingula. The trachea and central airways appear clear. Mediastinum: There is no mediastinal lymphadenopathy. Tammie: Not well assessed without IV contrast. Axillae: There is no axillary lymphadenopathy. Upper abdomen: The liver appears hyperdense which could be related to iron overload or possibly amiodarone therapy. There is a small hiatal hernia. Cholecystectomy clips are noted. Upper pole renal cysts measure up to 1.9 cm. There is upper abdominal ascites. Skeletal structures: The skeletal structures are osteopenic. No lytic or blastic bony lesions are seen. Degenerative change is noted in the shoulders and spine. IMPRESSION: 1. Cardiomegaly and cardiac pacemaker without evidence of congestive failure. 2. There are multifocal airspace opacities with dense airspace consolidation in the left upper lobe and lingula. This could represent pulmonary edema and/or multifocal pneumonia. Clinical correlation will be essential and radiographic follow-up to resolution is recommended. 3. Left larger than right pleural effusions with dependent atelectasis. 4. There is body wall edema and abdominal ascites. 5. Additional findings as above. ACT 112: Negative or not required by law. Electronically signed by: Chuck Pacheco M.D. 06/10/2023 1:48 PM Discharge Plan Visit Data Chief Complaint: Illness Stated Complaint: "SICK" UNABLE TO AMBULATE ED Provider: Willie Swann Discharge Problem: Hypoxia, Acute exacerbation of CHF (congestive heart failure), Pneumonia, ARNOLD (acute kidney injury), Elevated troponin Patient Disposition: Being Evaluated by Hospitalist Discharge Instructions Interventions: ED Discharge Assessment Last Done: 06/10/23 14:03
[2023-06-10 12:06] LABS: Base Excess VBG -1.8 mEq/L; HCO3 VBG 23 mmol/L; Oxygen Saturation VBG < 60.0 %; PCO2 VBG 39 mmHg (38-50); PO2 VBG 36 mmHg; pH VBG 7.38 (7.36-7.41)
[2023-06-10 12:17] LABS: Hematocrit (blood only) 34.1 % (42.0-52.0); Hemoglobin 11.3 g/dl (14.0-18.0); Mean Corpuscular Hemoglobin 30.7 pg (25.0-34.0); Mean Corpuscular Hgb Conc 33.1 g/dL (32.0-36.0); Mean Corpuscular Volume 92.7 fL (80.0-100.0); Mean Platelet Volume 10.6 fL (9.4-12.4); Platelet Count 167 K/uL (130-400); RDW Coefficient of Variation 17.7 % (11.5-14.5); RDW Standard Deviation 59.4 fL (36.4-46.3); Red Blood Count 3.68 M/uL (4.70-6.10); White Blood Count 14.34 K/ul (4.8-10.8)
[2023-06-10 12:30] LABS: Albumin Globulin Ratio 0.8 (0.9-2); Albumin Level 2.9 gm/dl (3.4-5.0); BUN Creatinine Ratio 20.5 (10-20); Bilirubin,Total 5.3 mg/dl (0.2-1.0); Calcium 8.5 mg/dl (8.6-10.3); Creatinine Clr Calc Pharmacy 18.5 ml/min; Est GFR (African American) 27.7 ml/min; Est GFR (Non-African American) 23.9 ml/min; Globulin 3.6 gm/dl (2.5-4.0); Magnesium 2.5 mg/dl (1.7-2.4); Potassium 4.7 mmol/L (3.5-5.1); Total Protein 6.5 gm/dl (6.0-8.3)
--- NOTE | 2023-06-10 12:34 | CT Scan Report ---
CT SCAN OF THE CERVICAL SPINE CLINICAL HISTORY: Fall. COMPARISON STUDY: No priors. TECHNIQUE: CT scan of the cervical spine is performed from the skull base to the upper thoracic spine . Images are reviewed in the axial, sagittal, and coronal planes. IV contrast was not administered fo r this examination. A dose lowering technique was utilized adhering to the principles of ALARA. CT DOSE: 1171.09 mGy.cm FINDINGS: Skeletal structures: The skeletal structures are osteopenic. There is no evidence of fracture or subl uxation involving the cervical spine. Vertebral body height is maintained. There is 3 mm of anteroli sthesis at C4-C5. Alignment is otherwise preserved. There is straightening of the cervical lordosis. Small anterior osteophytes are seen throughout. The odontoid process and lateral masses are intact. T he atlantoaxial articulation is preserved noting productive degenerative change. The spinous processe s appear intact. There is mild to moderate multilevel cervical spondylosis. Uncovertebral and facet a rthropathy contribute to neural foraminal narrowing at several levels. Midline sternotomy wires are n oted. Intervertebral discs: There is moderate disc space narrowing at C3-C4 and severe disc space narrowing at C6-C7. Mild narrowing is noted at the remaining cervical levels. Central canal: Posterior disc osteophyte complexes at C3-C4 and C6-C7 may contribute to mild acquired compromise of the central canal. Soft tissues: There is diffuse body wall edema. The prevertebral soft tissues are normal. There is at herosclerotic calcification of the carotid bulbs. Pacemaker leads are seen at the left thoracic inlet . Calvarium: The visualized calvarium at the skull base appears intact. Brain parenchyma: Partially visualized brain parenchyma at the skull base is within normal limits. Sinuses and mastoids: The visualized paranasal sinuses are clear. The mastoid air cells are well pneu matized. Lung apices: A left pleural effusion and dense left upper lobe consolidation is partially visualized. IMPRESSION: 1. There is no evidence of fracture or subluxation involving the cervical spine. 2. Osteopenia and spondylotic change as above. 3. A left pleural effusion and dense left upper lobe airspace consolidation is partially visualized. Correlate clinically. ACT 112: Negative or not required by law. Electronically signed by: Chuck Pacheco M.D. 06/10/2023 12:33 PM
[2023-06-10 12:37] LABS: Troponin I High Sensitivity 84.7 pg/ml (0-20)
--- NOTE | 2023-06-10 12:37 | CT Scan Report ---
HEAD CT NONCONTRAST CT DOSE: HISTORY: Multiple falls TECHNIQUE: Multiaxial CT images of the head were performed without the use of intravenous contrast. A utomated exposure control was utilized for this study. A dose lowering technique was utilized adheri ng to the principles of ALARA. Comparison: Head CT 05/17/2023. Findings: The paranasal sinuses and mastoid air cells are clear. The calvarium and skull base are int act. There is no mass, hematoma, midline shift, acute infarct. White matter hypodensity is nonspecifi c but suggestive of microvascular ischemic change. The ventricles and sulci demonstrate mild age-rela rito involutional changes. Impression: No acute intracranial abnormality. ACT 112: Negative or not required by law. Electronically signed by: Mitul Muñoz M.D. 06/10/2023 12:36 PM
[2023-06-10 12:40] LABS: INR 1.7 (0.9-1.1); Prothrombin Time 18.5 Seconds (9.0-12.0)
[2023-06-10] MEDS ORDERED: PIPERACILLIN/TAZOBACTAM 4.5 GM/100 ML BAG IV ONE (12:41)
[2023-06-10 12:44] LABS: Thyroid Stimulating Hormone 3.088 uIu/ml (0.300-4.500)
[2023-06-10 12:50] LABS: Basophils # (auto) 0.02 K/uL (0.00-0.20); Basophils % (auto) 0.1 %; Echinocytes 2+; Immature Granulocytes # (auto) 0.21 K/uL (0.01-0.20); Immature Granulocytes % (auto) 1.5 %; Lymphocytes # (auto) 0.37 K/uL (1.20-3.40); Lymphocytes % (auto) 2.6 %; Monocytes # (auto) 0.26 K/uL (0.11-0.59); Monocytes % (auto) 1.8 %; Neutrophils # (auto) 13.48 K/uL (1.40-6.50); Polychromasia 1+; Toxic Vacuolation 3+
[2023-06-10 13:04] LABS: Adenovirus PCR Not Detected (NotDetected); Bordetella parapertussis PCR Not Detected (NotDetected); Bordetella pertussis PCR Not Detected (NotDetected); Chlamydia pneumoniae PCR Not Detected (NotDetected); Coronavirus 229E PCR Not Detected (NotDetected); Coronavirus CoV-2 (COVID19)PCR Not Detected (NotDetected); Coronavirus HKU1 PCR Not Detected (NotDetected); Coronavirus NL63 PCR Not Detected (NotDetected); Coronavirus OC43PCR Not Detected (NotDetected); Human Metapneumovirus PCR Not Detected (NotDetected); Influenza A PCR Not Detected (NotDetected); Influenza B PCR Not Detected (NotDetected); Mycoplasma pneumoniae PCR Not Detected (NotDetected); Parainfluenza Virus 1 PCR Not Detected (NotDetected); Parainfluenza Virus 2 PCR Not Detected (NotDetected); Parainfluenza Virus 3 PCR Not Detected (NotDetected); Parainfluenza Virus 4 PCR Not Detected (NotDetected); Respiratory Syncytial VirusPCR Not Detected (NotDetected); Rhinovirus/Enterovirus PCR Not Detected (NotDetected)
[2023-06-10] MEDS ORDERED: SODIUM CHLORIDE 0.9% 250 ML IV ONE (13:07)
--- NOTE | 2023-06-10 13:29 | CT Scan Report ---
ABDOMEN AND PELVIS CT WITHOUT CONTRAST CT DOSE: HISTORY: Acute kidney injury, hypoxia, LFTs/bili elevated TECHNIQUE: Multiaxial CT images of the abdomen and pelvis were performed without contrast. A dose lo wering technique was utilized adhering to the principles of ALARA. COMPARISON STUDY: Abdomen and pelvis CT 10/11/2010. FINDINGS: The lung bases will be reported on the same day chest CTA. The heart is enlarged. A pacemak er wire is noted. Small right and moderate left pleural effusions. Patchy bibasilar densities are not ed. There is mild motion artifact. No pneumoperitoneum. No pneumatosis. There are healed right anteri or rib fractures. No acute fractures identified. There are poststernotomy changes. Severe body wall e arlene. Surgical clips within the left groin. Prior prostatectomy. Mild periportal edema. No hepatic or splenic masses. The unenhanced pancreas and adrenal glands are unremarkable. There are few punctate bilateral renal calculi. There is an exophytic 13 mm hypodense lesion within the left kidney on image 133. This is indeterminate but favors a hyperdense cyst. There are few additional bilateral renal hy podense lesions with the largest on the right measuring 2 cm. These are also technically indeterminat e on this noncontrast study but statistically represent cysts. No ureteral stones. No hydronephrosis. Moderate calcified plaque within the normal caliber abdominal aorta. No retroperitoneal or pelvic ly mphadenopathy. The bladder is moderately distended. This may be secondary to the enlarged prostate gl and. There are few small bladder diverticula are noted. Moderate ascites. Suboptimal evaluation for b owel pathology due to the lack of intravenous and oral contrast. However, there is no definite bowel wall thickening or obstruction. Colonic diverticulosis. No evidence for acute diverticulitis. Questio nable thickening of the ascending colon is likely due to underdistention. IMPRESSION: 1. Moderate ascites with severe body wall edema, mild periportal edema, and bilateral pleural effusio ns. 2. No definite bowel wall thickening or obstruction. Questionable thickening of the ascending colon i s likely due to underdistention. 3. Colonic diverticulosis. No evidence for acute diverticulitis. 4. The bladder is moderately distended. This may be due to the enlarged prostate gland. 5. Bilateral nephrolithiasis. No hydronephrosis. 6. Additional findings as described above. ACT 112: Negative or not required by law. Electronically signed by: Mitul Muñoz M.D. 06/10/2023 1:28 PM
--- NOTE | 2023-06-10 13:35 | XRay Report ---
XR chest 1V portable HISTORY: 82 years-old Male weakness acute weakness COMPARISON: Chest CT of same day TECHNIQUE: AP view of the chest FINDINGS: Cardiac silhouette is enlarged. Median sternotomy with left subclavian pacer/ICD. Left greater than r ight layering pleural effusions. Pulmonary vascular congestion with interstitial coarsening. 1.7 cm n odular density of the lateral segment right middle lobe, better seen on the comparison chest CT. Bila teral airspace opacities are most pronounced throughout the left lung. Degenerative changes of the sh oulders and spine. IMPRESSION: 1. Cardiomegaly with pulmonary edema. 2. Left greater than right pleural effusions. 3. Multifocal airspace opacities which are most pronounced throughout the left lung may represent asy mmetric alveolar pulmonary edema versus superimposed pneumonia. ACT 112: Negative or not required by law. The above report was generated using voice recognition software. It may contain grammatical, syntax o r spelling errors. Electronically signed by: Ghanshyam Jon M.D. 06/10/2023 1:34 PM
--- NOTE | 2023-06-10 13:49 | CT Scan Report ---
CT SCAN OF THE CHEST WITHOUT IV CONTRAST CLINICAL HISTORY: Hypoxia. COMPARISON STUDY: Chest x-ray dated 06/10/2023. Chest CT dated 12/31/2021. TECHNIQUE: CT scan of the thorax was performed from the thoracic inlet to the upper abdomen. Images are reviewed in the axial, sagittal, and coronal planes. IV contrast was not administered for this ex amination as per the referring clinician. A dose lowering technique was utilized adhering to the kan [place]. CT DOSE: 1144.95 mGy.cm FINDINGS: Thyroid: Imaged portions of the thyroid gland are normal in size and attenuation. Thoracic aorta: There is atherosclerotic calcification of the thoracic aorta, which is normal in edda darrin and demonstrates standard 3-vessel arch anatomy. Heart: The patient is status post midline sternotomy. A cardiac pacemaker is seen in the left chest w all. The heart is markedly enlarged and without pericardial effusion. The coronary arteries are dense ly calcified. There is diminished attenuation of the cardiac blood pool is compared to the myocardium suggesting anemia. The main pulmonary arteries are dilated suggesting pulmonary artery hypertension. Lungs and pleural spaces: Emphysematous change is noted. There are small right and moderate left pleu ral effusions with dependent atelectasis. Intralobular septal thickening suggests congestive failure. There are multifocal airspace opacities seen throughout both lungs with dense airspace consolidation in the left upper lobe and lingula. The trachea and central airways appear clear. Mediastinum: There is no mediastinal lymphadenopathy. Tammie: Not well assessed without IV contrast. Axillae: There is no axillary lymphadenopathy. Upper abdomen: The liver appears hyperdense which could be related to iron overload or possibly amiod arone therapy. There is a small hiatal hernia. Cholecystectomy clips are noted. Upper pole renal cyst s measure up to 1.9 cm. There is upper abdominal ascites. Skeletal structures: The skeletal structures are osteopenic. No lytic or blastic bony lesions are see n. Degenerative change is noted in the shoulders and spine. IMPRESSION: 1. Cardiomegaly and cardiac pacemaker without evidence of congestive failure. 2. There are multifocal airspace opacities with dense airspace consolidation in the left upper lobe a nd lingula. This could represent pulmonary edema and/or multifocal pneumonia. Clinical correlation wi ll be essential and radiographic follow-up to resolution is recommended. 3. Left larger than right pleural effusions with dependent atelectasis. 4. There is body wall edema and abdominal ascites. 5. Additional findings as above. ACT 112: Negative or not required by law. Electronically signed by: Chuck Pacheco M.D. 06/10/2023 1:48 PM
[2023-06-10] MEDS ORDERED: ACETAMINOPHEN 325 MG TAB PO PRN (14:28)
--- NOTE | 2023-06-10 14:54 | Electrocardiogram Report ---
Test Reason : Blood Pressure : / mmHG Vent. Rate : 081 BPM Atrial Rate : 081 BPM P-R Int : 202 ms QRS Dur : 126 ms QT Int : 436 ms P-R-T Axes : 043 046 -62 degrees QTc Int : 506 ms Sinus rhythm with frequent Premature ventricular complexes Non-specific intra-ventricular conduction block Inferior infarct , age undetermined Poor R wave progression, consider anterior VT vs. lead placement vs. LVH T wave abnormality, consider lateral ischemia Abnormal ECG When compared with ECG of 17-MAY-2023 23:51, Premature ventricular complexes are now Present Inferior infarct is now Present T wave inversion now evident in Inferior leads Confirmed by Miky Rodriguez ([id number]) on 06/10/2023 2:53:44 PM Referred By: REFERRED SELF Confirmed By:Miky Rodriguez
[2023-06-10] MEDS: SODIUM CHLORIDE 0.9% 1,000 ML IV SCH (16:37)
[2023-06-10] MEDS: DOXYCYCLINE HYCLATE 100 MG in DEXTROSE 5% MINI-B 100 ML IV SCH (16:37)
[2023-06-10 16:51] LABS: Appearance Urine Turbid (Clear); Bacteria Urine Automated Negative (Negative); Blood Urine 1+ (Negative); Color Urine Dark Yellow; Epithelial Cell Urine Auto >30 /lpf (0-5); Glucose Urine UA Negative (Negative); Ketones Urine Negative (Negative); Leukocyte Esterase Urine Trace (Negative); Nitrite Urine Negative (Negative); Protein Urine 3+ (Negative); RBC Urine Automated 0-4 /hpf (0-4); Specific Gravity Urine 1.017 (1.000-1.030); Urobilinogen Urine Negative (Negative); WBC Urine Automated >30 /hpf (0-5); pH Urine 5.5 (4.5-7.5)
[2023-06-10 16:55] LABS: Bilirubin Urine 1+ (Negative)
[2023-06-10 17:08] LABS: Amorphous Sediment Urine Present (None Prsent)
[2023-06-10] MEDS ORDERED: VANCOMYCIN CONSULT ACTIVE PRN (17:44)
[2023-06-10] MEDS ORDERED: VANCOMYCIN HCL 1,000 MG in SODIUM CHLORIDE 0.9% 250 ML IV ONE (18:30)
--- NOTE | 2023-06-10 18:37 | Pharmacy Report ---
Pharmacy PK ABX Note - Date of Service June 10, 2023 - Assessment and Plan Assessment 82 year old M started on vancomycin for possible pneumonia. Previously hospitalized earlier this month and was at a nursing facility/rehab and discharged just this past Saturday. Patient presenting with increased weakness/hypoxia. Day # 1 of antimicrobial therapy. Plan Vancomycin * Loading dose: 1000 mg iv x 1 (ED) * Patient with ARNOLD on admission - Patient's estimated t1/2 life >24 hours therefore will order a random vancomycin level tomorrow AM to assist with further dosing Pharmacy will continue to follow and will adjust dose/frequency as necessary. Thank you.
--- NOTE | 2023-06-10 18:50 | History & Physical Report ---
Date of Service June 10, 2023 Assessment & Plan (1) Acute hypoxic respiratory failure: (2) Severe sepsis: (3) History of COVID-19: (4) Pneumonia: Plan: Admit to telemetry Patient presenting from home with reports of generalized weakness. Recently admitted to [facility] 05/18 through 05/27 for altered mental status, visual hallucinations, agitation. Patient was treated for a presumed UTI. Patient was started on Zyprexa for behavioral disturbances. He was discharged to [facility] for rehab. Patient tested positive for COVID-19 on 06/05 at [facility]. Patient was started on a course of Paxlovid. He returned home on 06/08. In the ED, patient was hypoxic on room air at 83%, currently requiring 4 L of oxygen via nasal cannula WBC 14 K, lactic acid 2.6 - > 2.2, procalcitonin 2.57. Evidence of ARNOLD and transaminitis. CXR/CT chest showing evidence of multifocal pneumonia Bio fire negative S/p Zosyn in the ED, will continue with. Doxycycline added for atypical coverage. Vancomycin added due to positive MRSA nasal swab. Gentle IVF due to underlying ischemic cardiomyopathy/HFrEF, continue to trend lactate Follow sputum and blood cultures (5) Transaminitis: Plan: T. bili 5.3, AST 86, ALT 59, alk phos 165, INR 1.7 Mild jaundice noted on exam ? Due to Paxlovid vs. recent COVID infection vs. congestive hepatopathy vs. cirrhosis; biliary dilation not mentioned on CT, will check RUQ US for follow-up Moderate ascites noted on CT ABD/pelvis GI consult, case discussed with WILLOW Low via [employer] Trend LFTs in the AM (6) ARNOLD (acute kidney injury): (7) CKD (chronic kidney disease) stage 3, GFR 30-59 ml/min: Plan: Creatinine 2.4 (baseline low 1s) Likely prerenal due to acute illness/sepsis however postobstructive uropathy may be contributing given urinary retention. Barrera placed. Gentle IVF, hold ACEi and torsemide for now, resume as able Follow renal functions (8) Elevated troponin: Plan: HS troponin 84 - > 94 No reports of chest pain EKG shows nonspecific conduction block Continue to trend troponin, resting echo, consider cardiology consult Repeat EKG in a.m. (9) ICD (implantable cardioverter-defibrillator) in place: (10) Ischemic cardiomyopathy: Plan: EF 15 to 20% Appears intravascularly dry with ARNOLD and sepsis Noted bilateral pleural effusions on chest imaging, monitor volume status closely Due to ARNOLD, holding ACEi and diuretics for now, resume as able Update echo Continue ASA, Plavix, statin, beta-shamir, nitrate (11) Urinary retention: (12) Abnormal urinalysis: Plan: Noted to have urinary retention in the ED, Barrera catheter placed UA abnormal, does not strongly suggest UTI On antibiotics as above Follow urine culture Voiding trial as able (13) Hypothyroidism: Plan: Chronic, stable Continue levothyroxine DVT PROPHYLAXIS SQ heparin Patient seen in collaboration with Dr. Brito. I spent a total of 75 minutes coordinating, documenting, and providing care for this patient excluding time spent in the performance of separately billed services. This included personally reviewing all current laboratories and imaging studies, medication reconciliation, outpatient chart review, and discussion with specialists. (14) Acute metabolic encephalopathy: Admission and Anticipated Discharge Date Admission Date: June 10, 2023 History of Present Illness Chief Complaint: Generalized weakness Primary Care Provider: Roslyn Gale DO 82-year-old male with PMH HLD, hypothyroidism, ischemic cardiomyopathy EF 15 to 20%, history of cardiac arrest, history of ventricular fibrillation, s/p AICD, CAD s/p CABG and stenting, CKD stage III, GERD, BPH, history of prostate cancer, and other problems listed below who presents to the ED for evaluation of generalized weakness. History is limited from the patient due to underlying dementia, history obtained from his son over the telephone and review of recent inpatient records, outpatient PCP and cardiology records. Patient recently admi tted to [facility] 05/18 through 05/27 for altered mental status, visual hallucinations, agitation. Patient was treated for a presumed UTI. Patient was started on Zyprexa for behavioral disturbances. He was discharged to [facility] for rehab. Patient returned home on 06/08. Son states that patient has continually gone downhill since arriving home. States the patient was very weak this morning and he had to lift him out of bed. Patient was also diagnosed with COVID-19 on 06/05 at [facility]. I spoke with the staff. They stated the patient had cough and congestion the previous week and had 3 negative COVID test. Patient was retested on 05/26 as part of [facility] wide testing. Patient was started on a course of Paxlovid. At the time my exam, patient is resting in bed and offers no complaints. In the ED, patient was found to be hypoxic on room air at 83%. He is currently requiring 4 L of oxygen via nasal cannula. Labs show WBC 14.3 K, INR 1.7, creatinine 2.4, lactate 2.6 - > 2.2, transaminitis (T. bili 5.3, AST 86, ALT 59, alk phos 165), HS troponin 84 - > 94, proBNP 4000, procalcitonin 2.57. CXR shows multifocal airspace opacities. Patient was given IV Zosyn and 250 cc NSS. Allergies Allergy/AdvReac Type Severity Reaction Status Date / Time pantoprazole [From Protonix] Allergy Intermediate Hives Verified 06/10/23 14:41 sucralfate Allergy Intermediate Hives Verified 06/10/23 14:41 Home Medications Medication Instructions Recorded Confirmed Type aspirin 81 mg tablet,delayed 81 mg PO QAM 01/16/18 06/10/23 History release (Thomas Low Dose Aspirin) clopidogrel 75 mg tablet (Plavix) 75 mg PO QAM 01/16/18 06/10/23 History finasteride 5 mg tablet (Proscar) 5 mg PO QAM 01/16/18 06/10/23 History rosuvastatin 5 mg tablet 5 mg PO DAILY 01/01/22 06/10/23 History metoprolol succinate 50 mg 50 mg PO BID 09/25/22 06/10/23 History tablet,extended release 24 hr docusate sodium 100 mg capsule 100 mg PO BID 05/17/23 06/10/23 History isosorbide mononitrate 30 mg 30 mg PO QAM 05/17/23 06/10/23 History tablet,extended release 24 hr polyethylene glycol 3350 17 17 g PO DAILY 05/17/23 06/10/23 History gram/dose oral powder (Miralax) potassium chloride 10 mEq 10 meq PO BID 05/17/23 06/10/23 History capsule,extended release donepezil 5 mg tablet (Aricept) 5 mg PO DAILY 06/10/23 06/10/23 History famotidine 20 mg tablet 20 mg PO DAILY 06/10/23 06/10/23 History levothyroxine 112 mcg tablet 112 mcg PO DAILY 06/10/23 06/10/23 History lisinopril 2.5 mg tablet 2.5 mg PO DAILY 06/10/23 06/10/23 History nirmatrelvir 150 mg-ritonavir 100 0 ea PO .COMPLEX 06/10/23 06/10/23 History mg tablets in a dose pack (Paxlovid) olanzapine 2.5 mg tablet 2.5 mg PO DAILY 06/10/23 06/10/23 History olanzapine 5 mg tablet 5 mg PO QDD 06/10/23 06/10/23 History torsemide 10 mg tablet 5 mg PO DAILY 06/10/23 06/10/23 History Past Med/Surg History Medical History Osteoarthritis, knee Pacemaker PLACED 2012 ICD (implantable cardioverter-defibrillator) in place PLACED 2012 @ [facility] HTN (hypertension) GERD (gastroesophageal reflux disease) Hypothyroidism CKD (chronic kidney disease) stage 3, GFR 30-59 ml/min Prostate cancer Dx 2011, surveillance only BPH (benign prostatic hyperplasia) H/O cardiac arrest Stable angina pectoris Ischemic cardiomyopathy EF 30-35% H/O myocardial ischemia CAD (coronary artery disease) Surgical History History of tonsillectomy History of appendectomy Encounter for insertion of cardiac resynchronization therapy defibrillator History of cardiac cath X6 STENTS (2012 & 2014 YAKIMA) UNSURE OF DATES -- WILL BRING STENT CARDS DOS H/O two vessel coronary artery bypass graft 1990 and 1999 Family History Other Coronary heart disease Social History Smoking Status: Never smoker Second Hand Exposure: No; Do You Dip or Chew Tobacco: No; Hx Alcohol Use: No Hx Substance Use: No Preferred Language: Peruvian Communication Ability: Effective Plant Utilities 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 Required: No Beliefs That Will Affect Care: None marital status: Unknown Current Living Situation: Family Other Information That Helps Us Care for You: No Feels Safe at Home: Yes Assistive Devices: Walker Physical Exam Constitutional: + ill appearing and + thin; no acute dis tress Eyes: PERRL; no conjunctival abnormality and sclerae not anicteric ENMT: external ear and nose normal, oropharynx normal Respiratory: normal respiratory effort; no respiratory distress Auscultation: + diminished lung sounds Cardiovascular: Rate/Rhythm: regular rate and regular rhythm Vessels: normal peripheral pulses Extremities: no edema Gastrointestinal (Abdomen): Inspection/Auscultation: + abdomen distended Percussion/Palpation: abdomen soft and + ascites; abdomen nontender Musculoskeletal: no cyanosis or clubbing, extremities motor strength 5/5 Skin: no rashes, warm and dry + jaundice (Mild) Neurologic: PERRL, EOMI, accommodation nl, no face palsy, no dysarthria Psychiatric: Orientation: alert, oriented to person and oriented to place; + not oriented to time Cognition: + recent memory not intact Insight: + limited insight Results & Data Results & Data Vital Signs (Past 12 Hours) Vital Signs Temp Pulse Pulse Resp BP BP Pulse Ox 06/10/23 16:30 81 22 114/86 94 06/10/23 15:30 83 06/10/23 11:50 96 06/10/23 11:45 37.4 C 88 15 119/77 83 L 06/10/23 11:38 82 O2 Del Method O2 Flow Rate 06/10/23 16:30 Nasal Cannula 4 06/10/23 15:30 06/10/23 11:50 Nasal Cannula 4 06/10/23 11:45 Room Air 06/10/23 11:38 Laboratory Results Short CBC 06/10/23 Range/Units 11:47 WBC 14.34 H (4.8-10.8) K/ul Hgb 11.3 L (14.0-18.0) g/dl Hct 34.1 L (42.0-52.0) % Plt Count 167 (130-400) K/uL BMP 06/10/23 11:47 Sodium 137 Potassium 4.7 Chloride 104 Carbon Dioxide 20 L BUN 50 H Creatinine 2.44 H Glucose 83 Calcium 8.5 L Cardiac Enzymes 06/10/23 Range/Units 11:47 Total Creatine Kinase 110 (30-223) U/L Liver Function 06/10/23 Range/Units 11:47 Total Bilirubin 5.3 H (0.2-1.0) mg/dl AST 86 H (13-39) U/L ALT 59 H (7-52) U/L Alkaline Phosphatase 165 H (34-104) U/L Albumin 2.9 L (3.4-5.0) gm/dl Urine 06/10/23 Range/Units 16:23 Urine Color Dark Yellow Urine Appearance Turbid A (Clear) Urine pH 5.5 (4.5-7.5) Ur Specific [place] 1.017 (1.000-1.030) Urine Protein 3+ H (Negative) Urine Glucose (UA) Negative (Negative) Diagnostic Findings Chest X-Ray 06/10/23 11:38 XR chest 1V portable HISTORY: 82 years-old Male weakness acute weakness COMPARISON: Chest CT of same day TECHNIQUE: AP view of the chest FINDINGS: Cardiac silhouette is enlarged. Median sternotomy with left subclavian pacer/ICD. Left greater than right layering pleural effusions. Pulmonary vascular congestion with interstitial coarsening. 1.7 cm nodular density of the lateral segment right middle lobe, better seen on the comparison chest CT. Bilateral airspace opacities are most pronounced throughout the left lung. Degenerative changes of the shoulders and spine. IMPRESSION: 1. Cardiomegaly with pulmonary edema. 2. Left greater than right pleural effusions. 3. Multifocal airspace opacities which are most pronounced throughout the left lung may represent asymmetric alveolar pulmonary edema versus superimposed pneumonia. ACT 112: Negative or not required by law. The above report was generated using voice recognition software. It may contain grammatical, syntax or spelling errors. Electronically signed by: Ghanshyam Jon M.D. 06/10/2023 1:[address] 06/10/23 11:[address] DOSE: HISTORY: Multiple falls TECHNIQUE: Multiaxial CT images of the head were performed without the use of intravenous contrast. Automated exposure control was utilized for this study. A dose lowering technique was utilized adhering to the principles of ALARA. Comparison: Head CT 05/17/2023. Findings: The paranasal sinuses and mastoid air cells are clear. The calvarium and skull base are intact. There is no mass, hematoma, midline shift, acute infarct. White matter hypodensity is nonspecific but suggestive of microvascular ischemic change. The ventricles and sulci demonstrate mild age-related involutional changes. Impression: No acute intracranial abnormality. ACT 112: Negative or not required by law. Electronically signed by: Mitul Muñoz M.D. 06/10/2023 12:[address] 06/10/23 11:39 CT SCAN OF THE CERVICAL SPINE CLINICAL HISTORY: Fall. COMPARISON STUDY: No priors. TECHNIQUE: CT scan of the cervical spine is performed from the skull base to the upper thoracic spine. Images are reviewed in the axial, sagittal, and coronal planes. IV contrast was not administered for this examination. A dose lowering technique was utilized adhering to the principles of ALARA. CT DOSE: 1171.09 mGy.cm FINDINGS: Skeletal structures: The skeletal structures are osteopenic. There is no evidence of fracture or subluxation involving the cervical spine. Vertebral body height is maintained. There is 3 mm of anterolisthesis at C4-C5. Alignment is otherwise preserved. There is straightening of the cervical lordosis. Small anterior osteophytes are seen throughout. The odontoid process and lateral ma sses are intact. The atlantoaxial articulation is preserved noting productive degenerative change. The spinous processes appear intact. There is mild to moderate multilevel cervical spondylosis. Uncovertebral and facet arthropathy contribute to neural foraminal narrowing at several levels. Midline sternotomy wires are noted. Intervertebral discs: There is moderate disc space narrowing at C3-C4 and severe disc space narrowing at C6-C7. Mild narrowing is noted at the remaining cervical levels. Central canal: Posterior disc osteophyte complexes at C3-C4 and C6-C7 may contribute to mild acquired compromise of the central canal. Soft tissues: There is diffuse body wall edema. The prevertebral soft tissues are normal. There is atherosclerotic calcification of the carotid bulbs. Pacemaker leads are seen at the left thoracic inlet. Calvarium: The visualized calvarium at the skull base appears intact. Brain parenchyma: Partially visualized brain parenchyma at the skull base is within normal limits. Sinuses and mastoids: The visualized paranasal sinuses are clear. The mastoid air cells are well pneumatized. Lung apices: A left pleural effusion and dense left upper lobe consolidation is partially visualized. IMPRESSION: 1. There is no evidence of fracture or subluxation involving the cervical spine. 2. Osteopenia and spondylotic change as above. 3. A left pleural effusion and dense left upper lobe airspace consolidation is partially visualized. Correlate clinically. ACT 112: Negative or not required by law. Electronically signed by: Chuck Pacheco M.D. 06/10/2023 12:33 PM Abdomen/Pelvis CT 06/10/23 12:[address] WITHOUT CONTRAST CT DOSE: HISTORY: Acute kidney injury, hypoxia, LFTs/bili elevated TECHNIQUE: Multiaxial CT images of the abdomen and pelvis were performed without contrast. A dose lowering technique was utilized adhering to the principles of ALARA. COMPARISON STUDY: Abdomen and pelvis CT 10/11/2010. FINDINGS: The lung bases will be reported on the same day chest CTA. The heart is enlarged. A pacemaker wire is noted. Small right and moderate left pleural effusions. Patchy bibasilar densities are noted. There is mild motion artifact. No pneumoperitoneum. No pneumatosis. There are healed right anterior rib fractures. No acute fractures identified. There are poststernotomy changes. Severe body wall edema. Surgical clips within the left groin. Prior prostatectomy. Mild periportal edema. No hepatic or splenic masses. The unenhanced pancreas and adrenal glands are unremarkable. There are few punctate bilateral renal calculi. There is an exophytic 13 mm hypodense lesion within the left kidney on image 133. This is indeterminate but favors a hyperdense cyst. There are few additional bilateral renal hypodense lesions with the largest on the right measuring 2 cm. These are also technically indeterminate on this noncontrast study but statistically represent cysts. No ureteral stones. No hydronephrosis. Moderate calcified plaque within the normal caliber abdominal aorta. No retroperitoneal or pelvic lymphadenopathy. The bladder is moderately distended. This may be secondary to the enlarged prostate gland. There are few small bladder diverticula are noted. Moderate ascites. Suboptimal evaluation for bowel pathology due to the lack of intravenous and oral contrast. However, there is no definite bowel wall thickening or obstruction. Colonic diverticulosis. No evidence for acute diverticulitis. Questionable thickening of the ascending colon is likely due to underdistention. IMPRESSION: 1. Moderate ascites with severe body wall edema, mild periportal edema, and bilateral pleural effusions. 2. No definite bowel wall thickening or obstruction. Questionable thickening of the ascending colon is likely due to underdistention. 3. Colonic diverticulosis. No evidence for acute diverticulitis. 4. The bladder is moderately distended. This may be due to the enlarged prostate gland. 5. Bilateral nephrolithiasis. No hydronephrosis. 6. Additional findings as described above. ACT 112: Negative or not required by law. Electronically signed by: Mitul Muñoz M.D. 06/10/2023 1:[address] 06/10/23 12:41 CT SCAN OF THE CHEST WITHOUT IV CONTRAST CLINICAL HISTORY: Hypoxia. COMPARISON STUDY: Chest x-ray dated 06/10/2023. Chest CT dated 12/31/2021. TECHNIQUE: CT scan of the thorax was performed from the thoracic inlet to the upper abdomen. Images are reviewed in the axial, sagittal, and coronal planes. IV contrast was not administered for this examination as per the referring clinician. A dose lowering technique was utilized adhering to the principles of ALARA. CT DOSE: 1144.95 mGy.cm FINDINGS: Thyroid: Imaged portions of the thyroid gland are normal in size and attenuation. Thoracic aorta: There is atherosclerotic calcification of the thoracic aorta, which is normal in caliber and demonstrates standard 3-vessel arch anatomy. Heart: The patient is status post midline sternotomy. A cardiac pacemaker is seen in the left chest wall. The heart is markedly enlarged and without pericardial effusion. The coronary arteries are densely calcified. There is diminished attenuation of the cardiac blood pool is compared to the myocardium suggesting anemia. The main pulmonary arteries are dilated suggesting pulmonary artery hypertension. Lungs and pleural spaces: Emphysematous change is noted. There are small right and moderate left pleural effusions with dependent atelectasis. Intralobular se ptal thickening suggests congestive failure. There are multifocal airspace opacities seen throughout both lungs with dense airspace consolidation in the left upper lobe and lingula. The trachea and central airways appear clear. Mediastinum: There is no mediastinal lymphadenopathy. Tammie: Not well assessed without IV contrast. Axillae: There is no axillary lymphadenopathy. Upper abdomen: The liver appears hyperdense which could be related to iron overload or possibly amiodarone therapy. There is a small hiatal hernia. Cholecystectomy clips are noted. Upper pole renal cysts measure up to 1.9 cm. There is upper abdominal ascites. Skeletal structures: The skeletal structures are osteopenic. No lytic or blastic bony lesions are seen. Degenerative change is noted in the shoulders and spine. IMPRESSION: 1. Cardiomegaly and cardiac pacemaker without evidence of congestive failure. 2. There are multifocal airspace opacities with dense airspace consolidation in the left upper lobe and lingula. This could represent pulmonary edema and/or multifocal pneumonia. Clinical correlation will be essential and radiographic follow-up to resolution is recommended. 3. Left larger than right pleural effusions with dependent atelectasis. 4. There is body wall edema and abdominal ascites. 5. Additional findings as above. ACT 112: Negative or not required by law. Electronically signed by: Chuck Pacheco M.D. 06/10/2023 1:48 PM Code Status & VTE Plan VTE Prophylaxis Plan VTE Prophylaxis will be ordered: Yes Supervising Physician Co-Signing Physician Notes I have seen and examined the patient and have discussed the case with the provider above. I have reviewed the advanced practitioner's documentation, and I agree with, and take responsibility for that plan of care. 82-year-old man presents with confusion hypoxia recent history of COVID-19 on Paxlovid, pneumonia, hyperbilirubinemia with jaundice and acute kidney injury. He also has ischemic cardiomyopathy with an EF less than 35%. He is a poor historian secondary to confusion and illness. He denies any pain. He has cough with poor effort that is nonproductive. He is generally weak and cannot sit up independently with ease. He is jaundiced and confused. He reports having been here at the hospital for the last couple of days. On exam he has a 3 out of 6 systolic ejection murmur across precordium. S1-S2 heard with no evidence of edema. Extremities are warm and well-perfused. Heart rate and rhythm is regular. Abdomen is soft nontender nondistended, lungs are clear to auscultation bilaterally. Speech intact. Workup as noted above. Agree with continued broad-spectrum antibiotics and supplemental oxygen. He is at high risk for PE which was considered however renal dysfunction precludes contrast study and he has additional reasons to be hypoxic. If he is not improved on therapy noted above consider workup for PE in the next 2 days. Sepsis resuscitation was 6 conservative given poor EF. Lactate has not resolved to normal yet this evening but is improving. Hyperbilirubinemia and mild transaminitis is likely secondary to Paxlovid. Patient has no evidence on CT of bile duct obstruction and clinically does not have evidence of cholangitis or other biliary tract infection. Continue empiric coverage of abdominal bugs, however, given the level of illness on presentation. Trend bilirubin and LFTs in a.m. and hopeful that off Paxlovid and with time away from COVID these will improve. Consider GI consult or more aggressive biliary workup if patient does not improve or continues to decline. DO Daryl.
--- OUTSIDE RECORDS SUMMARY | 2023-06-10 21:41 | External Medical Summary | Continuity Of Care Document ---
Author Name Unknown Address [address] [place] [address] Organization [facility] [place] () Care Team Providers Care Cost Reduction Engineer Name Role Phone DO Villafuerte Amy Primary Care Provider [phone] VITAL SIGNS Date Time Diastolic blood pressure Systolic blood pressure Body height Body weight Temperature SpO2 Blood Sugar Pulse Respirations 115 41771 0 80.00 mm[Hg] - Sitting 124.00 mm[Hg] - Sitting 97.40 Tympanic 64.00/ min 18.00/min 20093 115 77069 8 80.00 mm[Hg] - Sitting 124.00 mm[Hg] - Sitting 118.40 NI 97.40 Tympanic 64.00/ min 18.00/min 83614 115 62184 1 80.00 mm[Hg] - Sitting 124.00 mm[Hg] - Sitting 64 NI 118.40 NI 97.40 Tympanic 64.00/ min 18.00/min 77576 115 68931 9 80.00 mm[Hg] - Sitting 124.00 mm[Hg] - Sitting 64 NI 118.40 NI 97.40 Tympanic 97.00 % 64.00/ min 18.00/min 98993 115 80206 0 63.00 mm[Hg] - Sitting 118.00 mm[Hg] - Sitting 64 NI 118.40 NI 97.20 Tympanic 96.00 % 61.00/ min 18.00/min 92921 115 25631 7 72.00 mm[Hg] - Sitting 106.00 mm[Hg] - Sitting 64 NI 118.40 NI 97.10 Forehead Scan 96.00 % 67.00/ min 18.00/min 02343 116 16233 1 72.00 mm[Hg] - Sitting 106.00 mm[Hg] - Sitting 64 NI 118.40 NI 97.10 Forehead Scan 96.00 % 67.00/ min 18.00/min 75273 116 62273 8 72.00 mm[Hg] - Sitting 106.00 mm[Hg] - Sitting 64 NI 118.40 NI 97.10 Forehead Scan 96.00 % 67.00/ min 18.00/min 18717 116 82197 7 72.00 mm[Hg] - Sitting 106.00 mm[Hg] - Sitting 64 NI 118.40 NI 97.10 Forehead Scan 96.00 % 67.00/ min 18.00/min
--- OUTSIDE RECORDS SUMMARY | 2023-06-10 21:41 | External Medical Summary | Continuity Of Care Document ---
Author Name Unknown Address [address] [address] Organization [facility] () Care Team Providers Care Arch Pad Cementer Name Role Phone DO Villafuerte Amy Primary Care Provider [phone] Problems Code Description Start Date End Date Status N39.0 Urinary tract infection, site not specified Active R41.82 Altered mental status, unspecified 05/27/2023 0 Active R44.3 Hallucinations, unspecified 05/27/2023 Active E78.5 Hyperlipidemia, unspecified 05/27/2023 Active I50.20 Unspecified systolic (congestive) heart failure 05/27/2023 Active I25.10 Atherosclerotic hear t disease of [place] coronary artery without angina pectoris 05/27/2023 Active K21.9 Gastro-esophageal re flux disease without esophagitis 05/27/2023 Active N18.30 Chronic kidney disease, stage 3 unspecified Active E44.0 Moderate protein-calorie malnutrition Active N40.1 Benign prostatic hyp erplasia with lower urinary tract symptoms 05/27/2023 Active I25.5 Ischemic cardiomyopathy 05/27/2023 A ctive R63.4 Abnormal weight loss 05/27/2023 Acti ve R64. 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 05/27/2023 Active VITAL SIGNS Date Time Diastolic blood pressure Systolic blood pressure Body height Body weight Temperature SpO2 Blood Sugar Pulse Respirations 115 78143 0 80.00 mm[Hg] - Sitting 124.00 mm[Hg] - Sitting 97.40 Tympanic 64.00/ min 18.00/min 70641 115 72223 8 118.40 NI 29514 115 07993 1 64 NI 78034 115 77839 9 80.00 mm[Hg] - Sitting 124.00 mm[Hg] - Sitting 97.40 Tympanic 97.00 % 64.00/ min 18.00/min 28574 115 69887 0 63.00 mm[Hg] - Sitting 118.00 mm[Hg] - Sitting 97.20 Tympanic 96.00 % 61.00/ min 18.00/min 115 07821 7 72.00 mm[Hg] - Sitting 106.00 mm[Hg] - Sitting 97.10 Forehead Scan 67.00/ min 18.00/min 06192 116 78224 1 98455 116 61132 8 91402 116 00647 7 11557 116 84700 1 58.00 mm[Hg] - Lying Down 106.00 mm[Hg] - Lying Down 97.40 Tympanic 60.00/ min 18.00/min 23804 117 17672 7 62.00 mm[Hg] - Lying Down 124.00 mm[Hg] - Lying Down 96.80 Tympanic 68.00/ min 18.00/min 02156 117 18975 5 75.00 mm[Hg] - Sitting 114.00 mm[Hg] - Sitting 96.80 Tympanic 95.00 % 61.00/ min 20.00/min
--- OUTSIDE RECORDS SUMMARY | 2023-06-10 21:41 | External Medical Summary | Continuity Of Care Document ---
Author Name Unknown Address [address] [address] Organization [facility] () Care Team Providers Care It Help Desk Manager Name Role Phone DO Villafuerte Amy Primary Care Provider [phone] Problems Code Description Start Date End Date Status N39.0 Urinary tract infection, site not specified Active R41.82 Altered mental status, unspecified 05/27/2023 0 Active R44.3 Hallucinations, unspecified 05/27/2023 Active E78.5 Hyperlipidemia, unspecified 05/27/2023 Active I50.20 Unspecified systolic (congestive) heart failure 05/27/2023 Active I25.10 Atherosclerotic hear t disease of [place] coronary artery without angina pectoris 05/27/2023 Active [...] Temperature SpO2 Blood Sugar Pulse Respirations 115 54891 0 80.00 mm[Hg] - Sitting 124.00 mm[Hg] - Sitting 97.40 Tympanic 64.00/ min 18.00/min 98255 115 64298 8 80.00 mm[Hg] - Sitting 124.00 mm[Hg] - Sitting 118.40 NI 97.40 Tympanic 64.00/ min 18.00/min 115 94905 1 80.00 mm[Hg] - Sitting 124.00 mm[Hg] - Sitting 64 NI 118.40 NI 97.40 Tympanic 64.00/ min 18.00/min 115 12738 9 80.00 mm[Hg] - Sitting 124.00 mm[Hg] - Sitting 64 NI 118.40 NI 97.40 Tympanic 97.00 % 64.00/ min 18.00/min 115 00797 0 63.00 mm[Hg] - Sitting 118.00 mm[Hg] - Sitting 64 NI 118.40 NI 97.20 Tympanic 96.00 % 61.00/ min 18.00/min 115 25571 7 72.00 mm[Hg] - Sitting 106.00 mm[Hg] - Sitting 64 NI 118.40 NI 97.10 Forehead Scan 96.00 % 67.00/ min 18.00/min 116 88937 1 72.00 mm[Hg] - Sitting 106.00 mm[Hg] - Sitting 64 NI 118.40 NI 97.10 Forehead Scan 96.00 % 67.00/ min 18.00/min 116 12537 8 72.00 mm[Hg] - Sitting 106.00 mm[Hg] - Sitting 64 NI 118.40 NI 97.10 Forehead Scan 96.00 % 67.00/ min 18.00/min 116 12625 7 72.00 mm[Hg] - Sitting 106.00 mm[Hg] - Sitting 64 NI 118.40 NI 97.10 Forehead Scan 96.00 % 67.00/ min 18.00/min
--- OUTSIDE RECORDS SUMMARY | 2023-06-10 21:41 | External Medical Summary | Summary of Care ---
Author Name Unknown Organization [facility] Address [address] [place] [address] Phone [phone] Care Team Providers Care Salt Lifter Name Role Phone Roslyn Gale DO Primary Care Provider [phone] Encounter Details Date Type Department Care Team (Late st Contact Info) Description 05/28/2023 Result Scan Unspecified Department <No scans attached> Allergies Active Allergy Reactions Criticality Noted Date Comments Pantoprazole Hives 01/13/2016 Sucralfate Hives 01/13/2016 documented as of this encounter (statuses as of 05/29/2023) Medications Medication Sig Dispensed Refills Start Date End Date Status ASPIRIN 81 MG PO CHEWIndications:INTE RFACED RESULT Take 1 tablet by mouth daily 32 Tab 11 03/24/2013 Active Nitroglycerin 0.4 MG Sublingual Tablet Sublingual (Nitrostat)Indicatio ns:Cardiac arrest (HCC),Atherosclerosi s of [place] coronary artery of [place] heart with stable angina pectoris (HCC),Crescendo [...] Oral Tablet (pLAVix)Indications: Cardiomyopathy, ischemic,Atheroscler osis of [place] coronary artery of [place] heart with stable angina pectoris (HCC) take 1 tablet by mouth once daily 90 Tablet 3 02/23/2023 Active Metoprolol Succinate ER 50 MG Oral Tablet Extended Release 24 Hour (toPROL XL)Indications:Ather osclerosis of [place] coronary artery of [place] heart with stable angina pectoris (HCC),Cardiomyopathy , [...] as of this encounter (statuses as of 05/29/2023) Active Problems Problem Noted Date Diagnosed Date Osteoarthritis, knee 03/28/2023 Protein-calorie malnutrition 10/19/2022 VT (ventricular tachycardia) 07/13/2021 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 stage 3 chronic kidney disease 07/13/2021 VF (ventricular fibrillation) 05/11/2021 S/P drug eluting coronary stent placement 2020 Heart failure, systolic, due to CAD 07/13/2020 Atherosclerosis of [place] co ronary artery of [place] heart with stable angina pectoris 11/10/2018 History of cardiac arrest 11/10/2018 History of prostate cancer 04/22/2017 S/P CABG (coronary artery bypass graft) 04/22/20 17 Statin intolerance 10/23/2016 Gastroesophageal reflux disease with esophagitis 2015 HTN, goal below 130/80 2015 BPH without obstruction/lower urinary tract symp toms 08/20/2014 ICD (implantable cardioverter-defibrillator) in place 03/20/2013 Overview: -Cardioverter-defibrillator assayer [employer], model [id number] Fortify, serial number [id number]. -Atrial lead assayer [employer], model 1688TC-52 Tendril SDX, serial number [id number]. -Right ventricular defibrillator lead assayer [employer], model 7122Q-65 Durata, serial number [id number]. Dyslipidemia, goal LDL below 70 03/18/2013 Acquired hypothyroidism 03/18/2013 Cardiomyopathy, ischemic 03/15/2013 documented as of this encounter (statuses as of 05/29/2023) Resolved Problems Problem Noted Date Diagnosed Date [...] as of this encounter (statuses as of 05/29/2023) Immunizations Name Administration Dates Next Due Pneumococcal [...] Care Team (Late st Contact Info) Description 07/02/2023 2:30 PM EST Office Visit Cardiology, [facility] [address] [place] [address] Candace Adhikari CRNP [address] [place] [address] 10/04/2023 7:20 AM EDT [facility] [address] [place] [address] Roslyn Gale DO [address] [place] [address] Health Maintenance Due Date Last Done Comments COVID-19 Vaccine (#1) 06/07/1941 Zoster Vaccines (2 of 3) 07/12/2014 05/17/2014 Depression Screening 11/22/2020 11/23/2019 Albumin/Creatinine Ratio 10/06/2023 023, 04/15/2017, 11/10/2014 GFR 11/26/2023 05/28/2023, 03/14, 11/09/2022, Additional history exists CKD PHOS USE SMARTSET 02733 04/08/202403/14, 01/23/2022, 01/13/2021, Additional history exists TSH 04/08/2024 04/08/2023, 10/11, 10/24/2022, Additional history exists CKD HGB USE SMARTSET 54684 05/28/202405/28, 04/08/2023, 04/08/2023, Additional history exists DTaP,Tdap,and Td Vaccines (3 [...] Date/Time Associated Diagnosis Comments RADIOLOGY SCANNED RESULT 05/28/2023 documented in this encounter Results * RADIOLOGY SCANNED RESULT (05/28/2023) 05/28/2023 No Physician Data Unknown DIAGNOSTIC RAD IOLOGY [...] the patient have Health Care Power of Agricultural Production Engineer? No Code Status History Code Status Date Activated Date Inactivated Comments Full Code 07/27/2014 1:43 PM 07/28/2014 2:00 PM This order reflects the patients wishes and were consensually agreed upon. Question Answer Comments Discussion of Advance Directives occurred with: Not Discussed Does the patient have a Living Will? No Does the patient have Health Care Power of Agricultural Production Engineer? No Full Code 07/21/2014 11:34 AM 07/21/2014 10:34 PM Thi s order reflects the patients wishes and were consensually agreed upon. Question Answer Comments Discussion of Advance Directives occurred with: Not Discussed Does the patient have a Living Will? No Does the patient have Health Care Power of Agricultural Production Engineer? No Full Code 03/14/2013 10:18 PM 03/25/2013 2:39 PM Thi s order reflects the patients wishes and were consensually agreed upon. Question Answer Comments Discussion of Advance Directives occurred with: Not Discussed Does the patient have a Living Will? No Does the patient have Health Care Power of Agricultural Production Engineer? No Healthcare Agents on File Name Relationship Healthcare Agent Relationship Communication Jose HENDRIX Adult Child Health Ball Mill Operator resentative (appointed verbally by patient or by statute hierarchy) Care Teams Salt Lifter Relationship Specialty Start Date End Date Roslyn Gale DO [address] [facility] [place] [address] PCP - General Family Medicine 11/10/18 documented as of this encounter
--- OUTSIDE RECORDS SUMMARY | 2023-06-10 21:41 | External Medical Summary | Summary of Care ---
Author Name Unknown Organization [facility] Address [address] [place] [address] Phone [phone] Care Team Providers Care Music Industry Intern Name Role Phone Roslyn Gale DO Primary Care Provider [phone]- [phone] Encounter Details Date Type Department Care Team (Late st Contact Info) Description 05/29/2023 Orders Only Family Practice [facility], [place] [address] [facility] [place] [address] Roslyn Gale DO [address] [place] [address] Allergies Active Allergy Reactions Criticality Noted Date Comments Pantoprazole Hives 01/13/2016 Sucralfate Hives 01/13/2016 documented as of this encounter (statuses as of 05/29/2023) Medications Medication Sig Dispensed Refills Start Date End Date Status ASPIRIN 81 MG PO CHEWIndications:INTE RFACED RESULT Take 1 tablet by mouth daily 32 Tab 11 03/24/2013 Active Nitroglycerin 0.4 MG Sublingual Tablet Sublingual (Nitrostat)Indicatio ns:Cardiac arrest (HCC),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 (HCC),Crescendo angina [...] Oral Tablet (pLAVix)Indications: Cardiomyopathy, ischemic,Atheroscler osis of [place]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 (HCC) take 1 tablet by mouth once daily 90 Tablet 3 02/23/2023 Active Metoprolol Succinate ER 50 MG Oral Tablet Extended Release 24 Hour (toPROL XL)Indications:Ather osclerosis of [place]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 (HCC),Cardiomyopathy , [...] systolic, due to CAD 07/13/2020 Atherosclerosis of [place] co ronary artery of [place] heart with stable angina pectoris 11/10/2018 History of cardiac arrest 11/10/2018 History of prostate cancer 04/22/2017 S/P CABG (coronary artery bypass graft) 04/22/20 Statin intolerance 10/23/2016 Gastroesophageal reflux disease with esophagitis 2015 HTN, goal below 130/80 2015 BPH without obstruction/lower urinary tract symp toms 08/20/2014 ICD (implantable cardioverter-defibrillator) in place 03/20/2013 Overview: -Cardioverter-defibrillator return checker [employer], model [id number] Fortify, serial number [id number]. -Atrial lead return checker [employer], model 1688TC-52 Tendril SDX, serial number [id number]. -Right ventricular defibrillator lead return checker [employer], model 7122Q-65 Durata, serial number [id number]. Dyslipidemia, goal LDL below 70 03/18/2013 Acquired [...] 07/02/2023 2:30 PM EST Office Visit Cardiology, [facility] [address] [facility] [place] [address] Candace Adhikari CRNP [address] [place] [address] 10/04/2023 7:20 AM EDT Office Visit Family Practice [place] Bullock [address] [place] [address] Roslyn Gale DO [address] [place] [address] Health Maintenance Due Date Last Done Comments COVID-19 Vaccine (#1) 06/07/1941 Zoster Vaccines (2 of 3) 07/12/2014 05/17/2014 Depression Screening 11/22/2020 11/23/2019 Albumin/Creatinine Ratio 10/06/2023 023, 04/15/2017, 11/10/2014 GFR 11/26/2023 05/28/2023, 03/14, 11/09/2022, Additional history exists CKD PHOS USE SMARTSET 42482 04/08/202403/14, 01/23/2022, 01/13/2021, Additional history exists TSH 04/08/2024 04/08/2023, 10/11, 10/24/2022, Additional history exists CKD HGB USE SMARTSET 68304 05/28/202405/28, 04/08/2023, 04/08/2023, Additional history exists DTaP,Tdap,and [...] Procedure Name Priority Date/Time Associated Diagnosis Comments XR CHEST 1 VIEW Routine 05/28/2023 CHEMISTRY-OUTSIDE Routine 05/28/2023 documented in this encounter Results * (ABNORMAL) CHEMISTRY-OUTSIDE (05/28/2023) Not all results display below - see scan for full detail OUTSIDE LAB (SEE SCANNED REPORT) Comment:SCAN INCLUDES - E.R. LABS: UA, AMMONIA, TROPONIN, CBCD, CMP, PRO BNP, TROPONIN CREATININE-OUTSI DE LAB 1.40 0.40 - 1.50 MG/DL OUTSIDE LAB (SEE SCANNED REPORT) EGFR-OUTSIDE LAB 50(L) >=60 ML/MIN/1.73M 2 OUTSIDE LAB (SEE SCANNED REPORT) POTASSIUM-OUTSID E LAB 4.4 3.6 - 5.0 MMOL/L OUTSIDE LAB (SEE SCANNED REPORT) GLUCOSE-OUTSIDE LAB 99 65 - 110 MG/DL OUTSIDE LAB (SEE SCANNED REPORT) HOURS FASTING OUTSID E LAB (SEE SCANNED REPORT) TRIGLYCERIDES-OU TSIDE LAB OUTSIDE LAB (SEE SCANNED REPORT) CHOLESTEROL-OUTS MUREIL LAB OUTSIDE LAB (SEE SCANNED REPORT) HDL-OUTSIDE LAB OUTS MURIEL LAB (SEE SCANNED REPORT) CHOL/HDL RATIO-OUTSIDE LAB OUTSIDE LAB (SEE SCANNED REPORT) LDL (CALCULATED)-OUT SIDE LAB OUTSIDE LAB (SEE SCANNED REPORT) LDL (DIRECT MEASURE)-OUTSIDE LAB OUTSIDE LAB (SEE SCANNED REPORT) HEMOGLOBIN, [id number] LAB OUTSIDE LAB (SEE SCANNED REPORT) PHOSPHORUS-OUTSI DE LAB OUTSIDE LAB (SEE SCANNED REPORT) PTH-OUTSIDE LAB OUTS [place]URIEL LAB (SEE SCANNED REPORT) MICROALBUMIN RATIO-OUTSIDE LAB OUTSIDE LAB (SEE SCANNED REPORT) PROTEIN, UA-OUTSIDE LAB 1+(A) NEGATIVE OUTSIDE LAB (SEE SCANNED REPORT) HEMOGLOBIN-OUTSI DE LAB 10.5(A) 14.0 - 18.0 GM/DL OUTSIDE LAB (SEE SCANNED REPORT) 05/28/2023 Dion Ramso DO LABORATORY OUTSIDE LAB (SEE SCANNED REPORT) * XR CHEST 1 VIEW (05/28/2023) Anatomical Region Laterality Modality Chest Other 05/28/2023 Dion Ramos DO RADIOLOGY (RAD GENER AL) documented in this encounter Advance Directives Latest [...] the patient have Health Care Power of Timber Spotter? No Code Status History Code Status Date Activated Date Inactivated Comments Full Code 07/27/2014 1:43 PM 07/28/2014 2:00 PM This order reflects the patients wishes and were consensually agreed upon. Question Answer Comments Discussion of Advance Directives occurred with: Not Discussed Does the patient have a Living Will? No Does the patient have Health Care Power of Timber Spotter? No Full Code 07/21/2014 11:34 AM 07/21/2014 10:34 PM Thi s order reflects the patients wishes and were consensually agreed upon. Question Answer Comments Discussion of Advance Directives occurred with: Not Discussed Does the patient have a Living Will? No Does the patient have Health Care Power of Timber Spotter? No Full Code 03/14/2013 10:18 PM 03/25/2013 2:39 PM Thi s order reflects the patients wishes and were consensually agreed upon. Question Answer Comments Discussion of Advance Directives occurred with: Not Discussed Does the patient have a Living Will? No Does the patient have Health Care Power of Timber Spotter? No Healthcare Agents on File Name Relationship Healthcare Agent Relationship Communication Jose HENDRIX Adult Child Health Potato Grader resentative (appointed verbally by patient or by statute hierarchy) Care Teams Music Industry Intern Relationship Specialty Start Date End Date Roslyn Gale DO [address] [facility] [place] [address] PCP - General Family Medicine 11/10/18 documented as of this encounter
--- OUTSIDE RECORDS SUMMARY | 2023-06-10 21:41 | External Medical Summary | Summary of Care ---
Author Name Unknown Organization [facility] Address [address] [place] [address] Phone [phone] Care Team Providers Care Mainspring Former Name Role Phone Roslyn Gale DO Primary Care Provider +1- [phone] Reason for Visit * Reason Onset Date Comments Fax 05/30/2023 Fax /immunizatio n records Encounter Details Date Type Department Care Team (Late st Contact Info) Description 05/30/2023 Telephone Family Practice [place] Bullock [address] [facility] [place] [address] Roslyn Gale DO [address] [facility] [place] [address] Fax (Fax /immunization records ) Allergies Active Allergy Reactions Criticality Noted Date Comments Pantoprazole Hives 01/13/2016 Sucralfate Hives 01/13/2016 documented as of this encounter (statuses as of 05/30/2023) Medications Medication Sig Dispensed Refills Start Date End Date Status ASPIRIN 81 MG PO CHEWIndications:INTE RFACED RESULT Take 1 tablet by mouth daily 32 Tab 11 03/24/2013 Active Nitroglycerin 0.4 MG Sublingual Tablet Sublingual (Nitrostat)Indicatio ns:Cardiac arrest (HCC),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 90 Tablet 3 10/26/2022 Active Lisinopril 2.5 MG Oral Tablet (Prinivil) Take 1 Tablet by mouth in the morning. 90 Tablet 3 10/26/2022 Active Clopidogrel Bisulfate 75 MG Oral Tablet (pLAVix)Indications: Cardiomyopathy, ischemic,Atheroscler osis of [place] coronary artery of [place] heart with stable angina pectoris (HCC) take 1 tablet by mouth once daily 90 Tablet 3 02/23/2023 Active Metoprolol Succinate ER 50 MG Oral Tablet Extended Release 24 Hour (toPROL XL)Indications:Ather osclerosis of [place] coronary artery of [place] heart with stable angina pectoris (HCC),Cardiomyopathy , [...] as of this encounter (statuses as of 05/30/2023) Active Problems Problem Noted Date Diagnosed Date History of lacunar cerebrovascular accident 05/13 Osteoarthritis, knee 03/28/2023 Protein-calorie malnutrition 10/19/2022 VT (ventricular tachycardia) 07/13/2021 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 stage 3 chronic kidney disease 07/13/2021 VF (ventricular fibrillation) 05/11/2021 S/P drug eluting coronary stent placement 2020 Heart failure, systolic, due to CAD 07/13/2020 Atherosclerosis of [place] co ronary artery of [place] heart with stable angina pectoris 11/10/2018 History of cardiac arrest 11/10/2018 History of prostate cancer 04/22/2017 S/P CABG (coronary artery bypass graft) 04/22/20 17 Statin intolerance 10/23/2016 Gastroesophageal reflux disease with esophagitis 2015 HTN, goal below 130/80 2015 BPH without obstruction/lower urinary tract symp toms 08/20/2014 ICD (implantable cardioverter-defibrillator) in place 03/20/2013 Overview: -Cardioverter-defibrillator electric meter repairer apprentice [employer], model [id number] Fortify, serial number [id number]. -Atrial lead electric meter repairer apprentice [employer], model 1688TC-52 Tendril SDX, serial number [id number]. -Right ventricular defibrillator lead electric meter repairer apprentice [employer], model 7122Q-65 Durata, serial number [id number]. Dyslipidemia, goal LDL below 70 03/18/2013 Acquired hypothyroidism 03/18/2013 Cardiomyopathy, ischemic 03/15/2013 documented as of this encounter (statuses as of 05/30/2023) Resolved Problems Problem Noted Date Diagnosed Date [...] as of this encounter (statuses as of 05/30/2023) Immunizations Name Administration Dates Next Due Pneumococcal [...] Telephone Encounter - Sarah Mendoza OSA - 05/30/2023 12:17 PM EST Vaccine record faxed as requested. * Telephone Encounter - Ricarda Bryant OSA - 05/30/2023 10:52 AM EST Caller requesting the following information to be faxed: Name/Company of caller: [employer] Information requested to be faxed: immunization records Fax number: [phone] Attention to Name/Company: [employer] Any additional information?: half-way needs today documented in this encounter Plan of Treatment Upcoming Encounters Date Type Department Care Team (Late st Contact Info) Description 07/02/2023 2:30 PM EST Office Visit Cardiology, [facility] [address] [place] [address] Candace Adhikari CRNP [address] [place] [address] 10/04/2023 7:20 AM EDT Office Visit Family Practice [place] [address] [place] [address] [place] [address] Roslyn Gale DO [address] [place] [address] [place] [address] Health Maintenance Due Date Last Done Comments COVID-19 Vaccine (#1) 06/07/1941 Zoster Vaccines (2 of 3) 07/12/2014 05/17/2014 Depression Screening 11/22/2020 11/23/2019 Albumin/Creatinine Ratio 10/06/2023 023, 04/15/2017, 11/10/2014 GFR 11/26/2023 05/28/2023, 03/14, 11/09/2022, Additional history exists CKD PHOS USE SMARTSET 42648 04/08/202403/14, 01/23/2022, 01/13/2021, Additional history exists TSH 04/08/2024 04/08/2023, 10/11, 10/24/2022, Additional history exists CKD HGB USE SMARTSET 00986 05/28/202405/28, 04/08/2023, 04/08/2023, Additional history exists DTaP,Tdap,and [...] the patient have Health Care Power of Rhinologist? No Code Status History Code Status Date Activated Date Inactivated Comments Full Code 07/27/2014 1:43 PM 07/28/2014 2:00 PM This order reflects the patients wishes and were consensually agreed upon. Question Answer Comments Discussion of Advance Directives occurred with: Not Discussed Does the patient have a Living Will? No Does the patient have Health Care Power of Rhinologist? No Full Code 07/21/2014 11:34 AM 07/21/2014 10:34 PM Thi s order reflects the patients wishes and were consensually agreed upon. Question Answer Comments Discussion of Advance Directives occurred with: Not Discussed Does the patient have a Living Will? No Does the patient have Health Care Power of Rhinologist? No Full Code 03/14/2013 10:18 PM 03/25/2013 2:39 PM Thi s order reflects the patients wishes and were consensually agreed upon. Question Answer Comments Discussion of Advance Directives occurred with: Not Discussed Does the patient have a Living Will? No Does the patient have Health Care Power of Rhinologist? No Healthcare Agents on File Name Relationship Healthcare Agent Relationship Communication Jose HENDRIX Adult Child Health Hitcher resentative (appointed verbally by patient or by statute hierarchy) Care Teams Mainspring Former Relationship Specialty Start Date End Date Roslyn Gale DO [address] [facility] [place] [address] PCP - General Family Medicine 11/10/18 documented as of this encounter
--- OUTSIDE RECORDS SUMMARY | 2023-06-10 21:41 | External Medical Summary | Continuity Of Care Document ---
Author Name Unknown Address [address] [place] [address] Organization [facility] () Care Team Providers Care Insurance Associate Name Role Phone DO Villafuerte Amy Primary Care Provider [phone] Problems Code Description Start Date End Date Status R41.82 Altered mental status, unspecified 05/27/2023 0 Active R44.3 Hallucinations, unspecified 05/27/2023 Active E78.5 Hyperlipidemia, unspecified 05/27/2023 Active I50.20 Unspecified systolic (congestive) heart failure 05/27/2023 Active K21.9 Gastro-esophageal re flux disease without esophagitis 05/27/2023 Active N18.30 Chronic kidney disease, stage 3 unspecified Active N39.0 Urinary tract infection, site not specified Active I25.10 Atherosclerotic hear t disease of [place] coronary artery without angina pectoris 05/27/2023 Active VITAL SIGNS Date Time Diastolic blood pressure Systolic blood pressure Body height Body weight Temperature SpO2 Blood Sugar Pulse Respirations 115 33097 0 80.00 mm[Hg] - Sitting 124.00 mm[Hg] - Sitting 97.40 Tympanic 64.00/ min 18.00/min 58798 115 62079 8 80.00 mm[Hg] - Sitting 124.00 mm[Hg] - Sitting 118.40 NI 97.40 Tympanic 64.00/ min 18.00/min 24457 115 00650 1 80.00 mm[Hg] - Sitting 124.00 mm[Hg] - Sitting 64 NI 118.40 NI 97.40 Tympanic 64.00/ min 18.00/min 52950 115 80818 9 80.00 mm[Hg] - Sitting 124.00 mm[Hg] - Sitting 64 NI 118.40 NI 97.40 Tympanic 97.00 % 64.00/ min 18.00/min 24604 115 18236 0 63.00 mm[Hg] - Sitting 118.00 mm[Hg] - Sitting 64 NI 118.40 NI 97.20 Tympanic 96.00 % 61.00/ min 18.00/min 10994 115 61276 7 72.00 mm[Hg] - Sitting 106.00 mm[Hg] - Sitting 64 NI 118.40 NI 97.10 Forehead Scan 96.00 % 67.00/ min 18.00/min 116 47761 1 72.00 mm[Hg] - Sitting 106.00 mm[Hg] - Sitting 64 NI 118.40 NI 97.10 Forehead Scan 96.00 % 67.00/ min 18.00/min 52596 116 89841 8 72.00 mm[Hg] - Sitting 106.00 mm[Hg] - Sitting 64 NI 118.40 NI 97.10 Forehead Scan 96.00 % 67.00/ min 18.00/min 116 01888 7 72.00 mm[Hg] - Sitting 106.00 mm[Hg] - Sitting 64 NI 118.40 NI 97.10 Forehead Scan 96.00 % 67.00/ min 18.00/min
--- OUTSIDE RECORDS SUMMARY | 2023-06-10 21:41 | External Medical Summary | Continuity Of Care Document ---
Author Name Unknown Address [address] [place] [address] Organization [facility] () Care Team Providers Care Riveter Hand Name Role Phone DO Villafuerte Amy Primary Care Provider [phone] Problems Code Description Start Date End Date Status N39.0 Urinary tract infection, site not specified Active R41.82 Altered mental status, unspecified 05/27/2023 0 Active R44.3 Hallucinations, unspecified 05/27/2023 Active E78.5 Hyperlipidemia, unspecified 05/27/2023 Active I50.20 Unspecified systolic (congestive) heart failure 05/27/2023 Active I25.10 Atherosclerotic hear t disease of [place] coronary artery without angina pectoris 05/27/2023 Active [...] Temperature SpO2 Blood Sugar Pulse Respirations 115 19440 0 80.00 mm[Hg] - Sitting 124.00 mm[Hg] - Sitting 97.40 Tympanic 64.00/ min 18.00/min 87691 115 04853 8 80.00 mm[Hg] - Sitting 124.00 mm[Hg] - Sitting 118.40 NI 97.40 Tympanic 64.00/ min 18.00/min 115 63985 1 80.00 mm[Hg] - Sitting 124.00 mm[Hg] - Sitting 64 NI 118.40 NI 97.40 Tympanic 64.00/ min 18.00/min 115 97453 9 80.00 mm[Hg] - Sitting 124.00 mm[Hg] - Sitting 64 NI 118.40 NI 97.40 Tympanic 97.00 % 64.00/ min 18.00/min 115 03721 0 63.00 mm[Hg] - Sitting 118.00 mm[Hg] - Sitting 64 NI 118.40 NI 97.20 Tympanic 96.00 % 61.00/ min 18.00/min 115 91783 7 72.00 mm[Hg] - Sitting 106.00 mm[Hg] - Sitting 64 NI 118.40 NI 97.10 Forehead Scan 96.00 % 67.00/ min 18.00/min 116 36747 1 72.00 mm[Hg] - Sitting 106.00 mm[Hg] - Sitting 64 NI 118.40 NI 97.10 Forehead Scan 96.00 % 67.00/ min 18.00/min 116 98883 8 72.00 mm[Hg] - Sitting 106.00 mm[Hg] - Sitting 64 NI 118.40 NI 97.10 Forehead Scan 96.00 % 67.00/ min 18.00/min 116 49267 7 72.00 mm[Hg] - Sitting 106.00 mm[Hg] - Sitting 64 NI 118.40 NI 97.10 Forehead Scan 96.00 % 67.00/ min 18.00/min
--- OUTSIDE RECORDS SUMMARY | 2023-06-10 21:41 | External Medical Summary | Summary of Care ---
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),Crescendo angina [...] Oral Tablet (pLAVix)Indications: Cardiomyopathy, ischemic,Atheroscler osis of [place] coronary artery of [place] heart with stable angina pectoris (HCC) take 1 tablet by mouth once daily 90 Tablet 3 02/23/2023 Active Metoprolol Succinate ER 50 MG Oral Tablet Extended Release 24 Hour (toPROL XL)Indications:Ather osclerosis of [place] coronary artery of [place] heart with stable angina pectoris (HCC),Cardiomyopathy , [...] systolic, due to CAD 07/13/2020 Atherosclerosis of [place] co ronary artery of [place] heart with stable angina pectoris 11/10/2018 History of cardiac arrest 11/10/2018 History of prostate cancer 04/22/2017 S/P CABG (coronary artery bypass graft) 04/22/20 Statin intolerance 10/23/2016 Gastroesophageal reflux disease with esophagitis 2015 HTN, goal below 130/80 2015 BPH without obstruction/lower urinary tract symp toms 08/20/2014 ICD (implantable cardioverter-defibrillator) in place 03/20/2013 Overview: -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, model [id number] Fortify, serial number [id number]. -Atrial lead park maintenance technician [employer], model 1688TC-52 Tendril SDX, serial number [id number]. -Right ventricular defibrillator lead park maintenance technician [employer], model 7122Q-65 Durata, serial number [id number]. Dyslipidemia, goal LDL below 70 03/18/2013 Acquired [...] 07/02/2023 2:30 PM EST Office Visit Cardiology, [facility] [address] [facility] [place] [address] Candace Adhikari CRNP [address] [place] [address] 10/04/2023 7:20 AM EDT Office Visit Family Practice [address] [place] [address] Roslyn Gale DO [address] [place] [address] Health Maintenance Due Date Last Done Comments COVID-19 Vaccine (#1) 06/07/1941 Zoster Vaccines (2 of 3) 07/12/2014 05/17/2014 Depression Screening 11/22/2020 11/23/2019 Albumin/Creatinine Ratio 10/06/2023 023, 04/15/2017, 11/10/2014 GFR 11/26/2023 05/28/2023, 03/14, 11/09/2022, Additional history exists CKD PHOS USE SMARTSET 46545 04/08/202403/14, 01/23/2022, 01/13/2021, Additional history exists TSH 04/08/2024 04/08/2023, 10/11, 10/24/2022, Additional history exists CKD HGB USE SMARTSET 59689 05/28/202405/28, 04/08/2023, 04/08/2023, Additional history exists DTaP,Tdap,and [...] Date/Time Associated Diagnosis Comments CARDIOLOGY SCANNED RESULT 05/29/2023 documented in this encounter Results * CARDIOLOGY SCANNED RESULT (05/29/2023) 05/29/2023 Alexis Danielle DO OTHER documented in this [...] the patient have Health Care Power of Safety Relief Valve Technician? No Code Status History Code Status Date Activated Date Inactivated Comments Full Code 07/27/2014 1:43 PM 07/28/2014 2:00 PM This order reflects the patients wishes and were consensually agreed upon. Question Answer Comments Discussion of Advance Directives occurred with: Not Discussed Does the patient have a Living Will? No Does the patient have Health Care Power of Safety Relief Valve Technician? No Full Code 07/21/2014 11:34 AM 07/21/2014 10:34 PM Thi s order reflects the patients wishes and were consensually agreed upon. Question Answer Comments Discussion of Advance Directives occurred with: Not Discussed Does the patient have a Living Will? No Does the patient have Health Care Power of Safety Relief Valve Technician? No Full Code 03/14/2013 10:18 PM 03/25/2013 2:39 PM Thi s order reflects the patients wishes and were consensually agreed upon. Question Answer Comments Discussion of Advance Directives occurred with: Not Discussed Does the patient have a Living Will? No Does the patient have Health Care Power of Safety Relief Valve Technician? No Healthcare Agents on File Name Relationship Healthcare Agent Relationship Communication Jose HENDRIX Adult Child Health Digester Operator resentative (appointed verbally by patient or by statute hierarchy) Care Teams Cumulative Effects Analyst Relationship Specialty Start Date End Date Roslyn Gale DO [address] [facility] [place] [address] PCP - General Family Medicine 11/10/18 documented as of this encounter
[2023-06-10] MEDS: METOPROLOL SUCC 50MG EXT REL TAB PO SCH (21:54)
[2023-06-10] MEDS: PIPERACILLIN/TAZOBACTAM 4.5 GM in DEXTROSE 5% MINI-B 100 ML IV SCH (21:55)
[2023-06-10] MEDS: HEPARIN SOD 5,000 UNIT/0.5 ML VIAL SQ SCH (21:56)
[2023-06-10] MEDS: DOCUSATE SODIUM 100 MG CAP PO SCH (21:58)
[2023-06-11 02:51] LABS: Hematocrit (blood only) 34.3 % (42.0-52.0); Hemoglobin 11.1 g/dl (14.0-18.0); Mean Corpuscular Hemoglobin 30.7 pg (25.0-34.0); Mean Corpuscular Hgb Conc 32.4 g/dL (32.0-36.0); Mean Platelet Volume 10.5 fL (9.4-12.4); Platelet Count 133 K/uL (130-400); RDW Coefficient of Variation 17.7 % (11.5-14.5); RDW Standard Deviation 60.7 fL (36.4-46.3); Red Blood Count 3.61 M/uL (4.70-6.10); White Blood Count 14.48 K/ul (4.8-10.8)
[2023-06-11 03:03] LABS: Albumin Level 2.5 gm/dl (3.4-5.0); Bilirubin,Total 4.8 mg/dl (0.2-1.0); Calcium 7.7 mg/dl (8.6-10.3); Potassium 4.1 mmol/L (3.5-5.1)
[2023-06-11 03:09] LABS: Albumin Globulin Ratio 0.7 (0.9-2); BUN Creatinine Ratio 20.6 (10-20); Creatinine Clr Calc Pharmacy 17.2 ml/min; Est GFR (Non-African American) 22.4 ml/min; Globulin 3.6 gm/dl (2.5-4.0); Total Protein 6.1 gm/dl (6.0-8.3)
[2023-06-11 03:24] LABS: INR 1.8 (0.9-1.1)
[2023-06-11] MEDS: DOXYCYCLINE HYCLATE 100 MG in DEXTROSE 5% MINI-B 100 ML IV SCH ×2 (03:24→16:10)
[2023-06-11] MEDS: SODIUM CHLORIDE 0.9% 1,000 ML IV SCH (06:22)
[2023-06-11] MEDS: LEVOTHYROXINE SODIUM 112 MCG TABLET PO SCH (06:23)
[2023-06-11] MEDS ORDERED: VANCOMYCIN HCL 1,000 MG in SODIUM CHLORIDE 0.9% 250 ML IV ONE (08:00)
[2023-06-11] MEDS: ASPIRIN 81 MG ECTAB PO SCH (08:25)
[2023-06-11] MEDS: CLOPIDOGREL BISULFATE 75 MG TAB PO SCH (08:25)
[2023-06-11] MEDS: FINASTERIDE 5 MG TAB PO SCH (08:25)
[2023-06-11] MEDS: DOCUSATE SODIUM 100 MG CAP PO SCH ×2 (08:25→20:37)
[2023-06-11] MEDS: FAMOTIDINE 20 MG TAB PO SCH (08:26)
[2023-06-11] MEDS: ISOSORBIDE MONO EXTENDED REL 30 MG TABCR PO SCH (08:26)
[2023-06-11] MEDS: METOPROLOL SUCC 50MG EXT REL TAB PO SCH ×2 (08:26→20:37)
[2023-06-11] MEDS: OLANZAPINE 2.5 MG TAB PO SCH (08:26)
[2023-06-11] MEDS: DONEPEZIL HCL 5 MG TAB PO SCH (08:26)
[2023-06-11] MEDS: ROSUVASTATIN CALCIUM 5 MG TAB PO SCH (08:27)
[2023-06-11] MEDS: POLYETHYLENE (MIRALAX) 17 GM PACK PO SCH (08:27)
[2023-06-11] MEDS: PIPERACILLIN/TAZOBACTAM 4.5 GM in DEXTROSE 5% MINI-B 100 ML IV SCH ×2 (08:27→20:37)
--- NOTE | 2023-06-11 08:29 | Ultrasound Report ---
ULTRASOUND RIGHT UPPER QUADRANT ABDOMEN CLINICAL HISTORY: Elevated hepatic transaminases. COMPARISON STUDY: Abdominal CT dated 06/10/2023. TECHNIQUE: Real-time, grayscale, and color flow sonography of the right upper quadrant of the abdomen was performed. Images are reviewed in the transverse and longitudinal planes. FINDINGS: Liver: The liver is normal in size and heterogeneous in echotexture. There is mild nodularity of the hepatic surface contour. There is no intrahepatic biliary ductal dilatation. The main portal vein is patent. Gallbladder: The gallbladder is surgically absent. The common bile duct measures up to 0.8 cm in diam eter. Pancreas: Visualized portions of the pancreatic head and body are normal in appearance. The splenic v ein is patent. Right kidney: Survey images of the right kidney demonstrate mild cortical atrophy. Echotexture is inc reased suggesting medical renal disease.. There is no hydronephrosis. A 2.0 cm cyst is noted in the i nterpolar region. Ascites: There is upper abdominal ascites. Pleural spaces: A right pleural effusion is noted. IMPRESSION: 1. No acute sonographic abnormality is identified in the right upper quadrant. 2. Nodularity of the hepatic surface contour suggests morphologic change of cirrhosis. 3. Upper abdominal ascites and right pleural effusion. 4. Status post cholecystectomy. 5. There is evidence of medical renal disease. ACT 112: Negative or not required by law. Electronically signed by: Chuck Pacheco M.D. 06/11/2023 8:28 AM
--- NOTE | 2023-06-11 09:09 | Gastrointestinal Consultation ---
Date of Consultation June 11, 2023 Assessment & Plan (1) Transaminitis: 82 year old male with history of dyslipidemia, hypothyroidism, ischemic cardiomyopathy EF 15 to 20%, history of cardiac arrest, history of ventricular fibrillation, s/p AICD, CAD s/p CABG and stenting, CKD-III, GERD, BPH, history of prostate cancer, recent COVID-19 infection just completed a course of PAXLOVID admitted w/ weakness - GI asked to evaluate for elevated LFTs, imaging showing cirrhosis changes and ascites. His LFTS may acutely be elevated due to recent COVID infeciton, use of PAXLOVID, congestive hepatopathy. Appears he has already completed the course of PAXLOVID. Would continue to trend LFTs. 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 Given his history of CKD and now ARNOLD would avoid therapeutic paracentesis at this time. Trend LFTs. May check an acute hepatitis panel. Low NA diet as tolerated. Supervising Physician Co-Signing Physician Notes Pt with mild transaminits, hyper bili. Imaging does not show dilated ducts. No abd pain. He likely has cholestasis related to sepsis, congestion or shunting. Follow LFT's periodically. NO further recs. Please reconsult as needed. History of Present Illness Reason for Consultation: elevated LFTs Requesting Physician: Huy Attending Physician: Alisha Son MD History of Present Illness 82 year old male with history of dyslipidemia, hypothyroidism, ischemic card iomyopathy EF 15 to 20%, history of cardiac arrest, history of ventricular fibrillation, s/p AICD, CAD s/p CABG and stenting, CKD-III, GERD, BPH, history of prostate cancer, and other problems admitted through the ED w/ weakness, SOB - GI asked to evaluate for elevated LFTs. He is a poor historian. Unclear to him if he has a known liver disease. Suggests from a GI standpoint feels okay. No abd pain. No nausea, vomiting. Tolerating PO intake but appetite is low. Denies diarrhea/constipation. No black or bloody stools. No fever, chills, CP, SOB. + recent COVID infection Just completed a course of Paxlovid yesterday PLT 149 INR 1.8 Tbili 2.9 --> 5.3 --> 4.8 AST 42 --> 86 --> 71 ALT 45 --> 59 --> 50 ALKP 158 --> 165 --> 168 BNP 4,052 ABD US 2023:. No acute sonographic abnormality is identified in the right upper quadrant.. Nodularity of the hepatic surface contour suggests morphologic change of cirrhosis. Upper abdominal ascites and right pleural effusion. Status post cholecystectomy.. There is evidence of medical renal disease. CTAP 2023: Moderate ascites with severe body wall edema, mild periportal edema, and bilateral pleural effusions. No definite bowel wall thickening or obstruction. Questionable thickening of the ascending colon is likely due to underdistention. Colonic diverticulosis. No evidence for acute diverticulitis. The bladder is moderately distended. This may be due to the enlarged prostate gland. Bilateral nephrolithiasis. No hydronephrosis.213 Additional findings as described above. EGD 2022: OSH HH, normal but took biopsies Colonoscopy 2022: OSH nonbleeding hemorrhoids, diverticulosis, no specimens collected Allergies Allergy/AdvReac Type Severity Reaction Status Date / Time pantoprazole [From Protonix] Allergy Intermediate Hives Verified 06/10/23 14:41 sucralfate Allergy Intermediate Hives Verified 06/10/23 14:41 Home Medications Medication Instructions Recorded Confirmed Type aspirin 81 mg tablet,delayed 81 mg PO QAM 01/16/18 06/10/23 History release (Thomas Low Dose Aspirin) clopidogrel 75 mg tablet (Plavix) 75 mg PO QAM 01/16/18 06/10/23 History finasteride 5 mg tablet (Proscar) 5 mg PO QAM 01/16/18 06/10/23 History rosuvastatin 5 mg tablet 5 mg PO DAILY 01/01/22 06/10/23 History metoprolol succinate 50 mg 50 mg PO BID 09/25/22 06/10/23 History tablet,extended release 24 hr docusate sodium 100 mg capsule 100 mg PO BID 05/17/23 06/10/23 History isosorbide mononitrate 30 mg 30 mg PO QAM 05/17/23 06/10/23 History tablet,extended release 24 hr polyethylene glycol 3350 17 17 g PO DAILY 05/17/23 06/10/23 History gram/dose oral powder (Miralax) potassium chloride 10 mEq 10 meq PO BID 05/17/23 06/10/23 History capsule,extended release donepezil 5 mg tablet (Aricept) 5 mg PO DAILY 06/10/23 06/10/23 History famotidine 20 mg tablet 20 mg PO DAILY 06/10/23 06/10/23 History levothyroxine 112 mcg tablet 112 mcg PO DAILY 06/10/23 06/10/23 History lisinopril 2.5 mg tablet 2.5 mg PO DAILY 06/10/23 06/10/23 History nirmatrelvir 150 mg-ritonavir 100 0 ea PO .COMPLEX 06/10/23 06/10/23 History mg tablets in a dose pack (Paxlovid) olanzapine 2.5 mg tablet 2.5 mg PO DAILY 06/10/23 06/10/23 History olanzapine 5 mg tablet 5 mg PO QDD 06/10/23 06/10/23 History torsemide 10 mg tablet 5 mg PO DAILY 06/10/23 06/10/23 History Patient History Medical History ARNOLD (acute kidney injury) Osteoarthritis, knee Pacemaker PLACED 2012 ICD (implantable cardioverter-defibrillator) in place PLACED 2012 @ [facility] HTN (hypertension) GERD (gastroesophageal reflux disease) Hypothyroidism CKD (chronic kidney disease) stage 3, GFR 30-59 ml/min Prostate cancer Dx 2011, surveillance only BPH (benign prostatic hyperplasia) H/O cardiac arrest Stable angina pectoris Ischemic cardiomyopathy EF 30-35% H/O myocardial ischemia CAD (coronary artery disease) Surgical History History of tonsillectomy History of appendectomy Encounter for insertion of cardiac resynchronization therapy defibrillator History of cardiac cath X6 STENTS (2012 & 2014 WINNETT) UNSURE OF DATES -- WILL BRING STENT CARDS DOS H/O two vessel coronary artery bypass graft 1990 and 1999 Family History Other Coronary heart disease Social History Smoking Status: Never smoker Second Hand Exposure: No; Do You Dip or Chew Tobacco: No; Hx Alcohol Use: No Hx Substance Use: No Preferred Language: Algerian Communication Ability: Effective Credit Office Manager Required: No Beliefs That Will Affect Care: None marital status: Unknown Current Living Situation: Family Other Information That Helps Us Care for You: No Feels Safe at Home: Yes Assistive Devices: Walker Review of Systems Review of Systems: All systems reviewed & are unremarkable except as noted in HPI & below Physical Exam Constitutional: Chronically ill appearing elderly man in no acute distress, asleep in bed who woke up to his name. Alert to person, place but difficultly recalling his medical history Respiratory: normal respiratory effort + wearing O2 Cardiovascular: Rate/Rhythm: regular rate Gastrointestinal (Abdomen): normal bowel sounds, soft, nontender, no hepatosplenomegaly Skin: no rashes, warm and dry Results & Data Vital Signs (Past 12 Hours) Vital Signs Temp Pulse Pulse Resp BP Pulse Ox O2 Del Method 06/11/23 07:34 36.4 C L 78 17 115/73 90 Nasal Cannula 06/11/23 07:00 75 06/11/23 03:30 36.9 C 72 18 106/67 94 Nasal Cannula 06/10/23 22:41 36.9 C 76 18 95/62 L 94 Nasal Cannula 06/10/23 21:57 79 O2 Flow Rate 06/11/23 07:34 6 06/11/23 07:00 06/11/23 03:30 4 06/10/23 22:41 4 06/10/23 21:57 Laboratory Results 06/11/23 06/10/23 06/10/23 Range/Units 02:21 Unknown 21:31 WBC 14.48 H (4.8-10.8) K/ul RBC 3.61 L (4.70-6.10) M/uL Hgb 11.1 L (14.0-18.0) g/dl Hct 34.3 L (42.0-52.0) % MCV 95.0 (80.0-100.0) fL MCH 30.7 (25.0-34.0) pg MCHC 32.4 (32.0-36.0) g/dL RDW Std Deviation 60.7 H (36.4-46.3) fL RDW Coeff of Ángel 17.7 H (11.5-14.5) % Plt Count 133 (130-400) K/uL MPV 10.5 (9.4-12.4) fL Immature Gran % (Auto) % Neut % (Auto) % Lymph % (Auto) % [place] % (Auto) % Eos % (Auto) % Baso % (Auto) % Neut # (Auto) (1.40-6.50) K/uL Lymph # (Auto) (1.20-3.40) K/uL [place] # (Auto) (0.11-0.59) K/uL Eos # (Auto) (0.00-0.50) K/uL Baso # (Auto) (0.00-0.20) K/uL Immature Gran # (Auto) (0.01-0.20) K/uL Toxic Vacuolation Polychromasia Echinocytes PT 19.0 H (9.0-12.0) Seconds INR 1.8 H (0.9-1.1) VBG pH (7.36-7.41) VBG pCO2 (38-50) mmHg VBG pO2 mmHg VBG HCO3 mmol/L VBG O2 Saturation % VBG Base Excess mEq/L Sodium 136 (136-145) mmol/L Potassium 4.1 (3.5-5.1) mmol/L Chloride 105 (98-107) mmol/L Carbon Dioxide 20 L (21-32) mmol/L Anion Gap 11 (3-11) BUN 53 H (6-23) mg/dl Creatinine 2.57 H (0.6-1.4) mg/dl Est Cr Clr Drug Dosing 17.2 ml/min Est GFR ( Amer) 26.0 ml/min Est GFR (Non-Af Amer) 22.4 ml/min BUN/Creatinine Ratio 20.6 H (10-20) Glucose 97 (70-99(Fasting)) mg/dl Lactate 2.1 H* (0.4-2.0) mmol/L Calcium 7.7 L (8.6-10.3) mg/dl Magnesium (1.7-2.4) mg/dl Total Bilirubin 4.8 H (0.2-1.0) mg/dl Direct Bilirubin Pending AST 71 H (13-39) U/L ALT 50 (7-52) U/L Alkaline Phosphatase 168 H (34-104) U/L Total Creatine Kinase (30-223) U/L Troponin I High Sens 89.9 H* D (0-20) pg/ml B-Natriuretic Peptide (0-100) pg/ml Total Protein 6.1 (6.0-8.3) gm/dl Albumin 2.5 L (3.4-5.0) gm/dl Globulin 3.6 (2.5-4.0) gm/dl Albumin/Globulin Ratio 0.7 L (0.9-2) Lipase (11-82) U/L Procalcitonin (0-0.5) ng/ml TSH (0.300-4.500) uIu/ml Urine Color Urine Appearance (Clear) Urine pH (4.5-7.5) Ur Specific [place] (1.000-1.030) Urine Protein (Negative) Urine Glucose (UA) (Negative) Urine Ketones (Negative) Urine Blood (Negative) Urine Nitrite (Negative) Urine Bilirubin (Negative) Urine Urobilinogen (Negative) Ur Leukocyte Esterase (Negative) Urine WBC (Auto) (0-5) /hpf Urine RBC (Auto) (0-4) /hpf U Hyaline Cast (Auto) (0-5) /lpf U Epithel Cells (Auto) (0-5) /lpf Urine Bacteria (Auto) (Negative) Ur Renal Epithelial Cell (0-5) /lpf Amorphous Sediment (None Prsent) Granular Casts (0) /lpf Urine Yeast Nasal Screen MRSA (PCR) (Negative) Random Vancomycin 12.1 (10-20) mcg/ml Adenovirus (PCR) (NotDetected) B. pertussis DNA (PCR) (NotDetected) B.parapertussis DNA PCR (NotDetected) C. pneumoniae DNA (PCR) (NotDetected) Coronavirus OC43 (PCR) (NotDetected) Coronavirus HKU1 (PCR) (NotDetected) Coronavirus 229E (PCR) (NotDetected) SARS-CoV-2 (PCR) (NotDetected) Coronavirus NL63 (PCR) (NotDetected) Human Metapneumovir PCR (NotDetected) Influenza Type A (PCR) (NotDetected) Influenza Type B (PCR) (NotDetected) M. pneumoniae (PCR) (NotDetected) Parainfluenza 1 (PCR) (NotDetected) Parainfluenza 2 (PCR) (NotDetected) Parainfluenza 3 (PCR) (NotDetected) Parainfluenza 4 (PCR) (NotDetected) RSV (PCR) (NotDetected) Entero/Rhino (PCR) (NotDetected) SARS-CoV-2 RNA (DAMEON) Cancelled 06/10/23 06/10/23 06/10/23 Range/Units 19:43 16:23 15:25 WBC (4.8-10.8) K/ul RBC (4.70-6.10) M/uL Hgb (14.0-18.0) g/dl Hct (42.0-52.0) % MCV (80.0-100.0) fL MCH (25.0-34.0) pg MCHC (32.0-36.0) g/dL RDW Std Deviation (36.4-46.3) fL RDW Coeff of Ángel (11.5-14.5) % Plt Count (130-400) K/uL MPV (9.4-12.4) fL Immature Gran % (Auto) % Neut % (Auto) % Lymph % (Auto) % [place] % (Auto) % Eos % (Auto) % Baso % (Auto) % Neut # (Auto) (1.40-6.50) K/uL Lymph # (Auto) (1.20-3.40) K/uL [place] # (Auto) (0.11-0.59) K/uL Eos # (Auto) (0.00-0.50) K/uL Baso # (Auto) (0.00-0.20) K/uL Immature Gran # (Auto) (0.01-0.20) K/uL Toxic Vacuolation Polychromasia Echinocytes PT (9.0-12.0) Seconds INR (0.9-1.1) VBG pH (7.36-7.41) VBG pCO2 (38-50) mmHg VBG pO2 mmHg VBG HCO3 mmol/L VBG O2 Saturation % VBG Base Excess mEq/L Sodium (136-145) mmol/L Potassium (3.5-5.1) mmol/L Chloride (98-107) mmol/L Carbon Dioxide (21-32) mmol/L Anion Gap (3-11) BUN (6-23) mg/dl Creatinine (0.6-1.4) mg/dl Est Cr Clr Drug Dosing ml/min Est GFR ( Amer) ml/min Est GFR (Non-Af Amer) ml/min BUN/Creatinine Ratio (10-20) Glucose (70-99(Fasting)) mg/dl Lactate 2.1 H* (0.4-2.0) mmol/L Calcium (8.6-10.3) mg/dl Magnesium (1.7-2.4) mg/dl Total Bilirubin (0.2-1.0) mg/dl Direct Bilirubin AST (13-39) U/L ALT (7-52) U/L Alkaline Phosphatase (34-104) U/L Total Creatine Kinase (30-223) U/L Troponin I High Sens 118.8 H* D (0-20) pg/ml B-Natriuretic Peptide (0-100) pg/ml Total Protein (6.0-8.3) gm/dl Albumin (3.4-5.0) gm/dl Globulin (2.5-4.0) gm/dl Albumin/Globulin Ratio (0.9-2) Lipase (11-82) U/L Procalcitonin (0-0.5) ng/ml TSH (0.300-4.500) uIu/ml Urine Color Dark Yellow Urine Appearance Turbid A (Clear) Urine pH 5.5 (4.5-7.5) Ur Specific [place] 1.017 (1.000-1.030) Urine Protein 3+ H (Negative) Urine Glucose (UA) Negative (Negative) Urine Ketones Negative (Negative) Urine Blood 1+ H (Negative) Urine Nitrite Negative (Negative) Urine Bilirubin 1+ H (Negative) Urine Urobilinogen Negative (Negative) Ur Leukocyte Esterase Trace H (Negative) Urine WBC (Auto) >30 H (0-5) /hpf Urine RBC (Auto) 0-4 (0-4) /hpf U Hyaline Cast (Auto) 5-10 H (0-5) /lpf U Epithel Cells (Auto) >30 H (0-5) /lpf Urine Bacteria (Auto) Negative (Negative) Ur Renal Epithelial Cell 5-10 H (0-5) /lpf Amorphous Sediment Present A (None Prsent) Granular Casts 10-20 H (0) /lpf Urine Yeast Not Reportable Nasal Screen MRSA (PCR) Positive A (Negative) Random Vancomycin (10-20) mcg/ml Adenovirus (PCR) (NotDetected) B. pertussis DNA (PCR) (NotDetected) B.parapertussis DNA PCR (NotDetected) C. pneumoniae DNA (PCR) (NotDetected) Coronavirus OC43 (PCR) (NotDetected) Coronavirus HKU1 (PCR) (NotDetected) Coronavirus 229E (PCR) (NotDetected) SARS-CoV-2 (PCR) (NotDetected) Coronavirus NL63 (PCR) (NotDetected) Human Metapneumovir PCR (NotDetected) Influenza Type A (PCR) (NotDetected) Influenza Type B (PCR) (NotDetected) M. pneumoniae (PCR) (NotDetected) Parainfluenza 1 (PCR) (NotDetected) Parainfluenza 2 (PCR) (NotDetected) Parainfluenza 3 (PCR) (NotDetected) Parainfluenza 4 (PCR) (NotDetected) RSV (PCR) (NotDetected) Entero/Rhino (PCR) (NotDetected) SARS-CoV-2 RNA (DAMEON) 06/10/23 06/10/23 06/10/23 Range/Units 14:54 14:11 13:00 WBC (4.8-10.8) K/ul RBC (4.70-6.10) M/uL Hgb (14.0-18.0) g/dl Hct (42.0-52.0) % MCV (80.0-100.0) fL MCH (25.0-34.0) pg MCHC (32.0-36.0) g/dL RDW Std Deviation (36.4-46.3) fL RDW Coeff of Ángel (11.5-14.5) % Plt Count (130-400) K/uL MPV (9.4-12.4) fL Immature Gran % (Auto) % Neut % (Auto) % Lymph % (Auto) % [place] % (Auto) % Eos % (Auto) % Baso % (Auto) % Neut # (Auto) (1.40-6.50) K/uL Lymph # (Auto) (1.20-3.40) K/uL [place] # (Auto) (0.11-0.59) K/uL Eos # (Auto) (0.00-0.50) K/uL Baso # (Auto) (0.00-0.20) K/uL Immature Gran # (Auto) (0.01-0.20) K/uL Toxic Vacuolation Polychromasia Echinocytes PT (9.0-12.0) Seconds INR (0.9-1.1) VBG pH (7.36-7.41) VBG pCO2 (38-50) mmHg VBG pO2 mmHg VBG HCO3 mmol/L VBG O2 Saturation % VBG Base Excess mEq/L Sodium (136-145) mmol/L Potassium (3.5-5.1) mmol/L Chloride (98-107) mmol/L Carbon Dioxide (21-32) mmol/L Anion Gap (3-11) BUN (6-23) mg/dl Creatinine (0.6-1.4) mg/dl Est Cr Clr Drug Dosing ml/min Est GFR ( Amer) ml/min Est GFR (Non-Af Amer) ml/min BUN/Creatinine Ratio (10-20) Glucose (70-99(Fasting)) mg/dl Lactate 2.2 H* 2.6 H* (0.4-2.0) mmol/L Calcium (8.6-10.3) mg/dl Magnesium (1.7-2.4) mg/dl Total Bilirubin (0.2-1.0) mg/dl Direct Bilirubin AST (13-39) U/L ALT (7-52) U/L Alkaline Phosphatase (34-104) U/L Total Creatine Kinase (30-223) U/L Troponin I High Sens 94.6 H* (0-20) pg/ml B-Natriuretic Peptide (0-100) pg/ml Total Protein (6.0-8.3) gm/dl Albumin (3.4-5.0) gm/dl Globulin (2.5-4.0) gm/dl Albumin/Globulin Ratio (0.9-2) Lipase (11-82) U/L Procalcitonin (0-0.5) ng/ml TSH (0.300-4.500) uIu/ml Urine Color Urine Appearance (Clear) Urine pH (4.5-7.5) Ur Specific [place] (1.000-1.030) Urine Protein (Negative) Urine Glucose (UA) (Negative) Urine Ketones (Negative) Urine Blood (Negative) Urine Nitrite (Negative) Urine Bilirubin (Negative) Urine Urobilinogen (Negative) Ur Leukocyte Esterase (Negative) Urine WBC (Auto) (0-5) /hpf Urine RBC (Auto) (0-4) /hpf U Hyaline Cast (Auto) (0-5) /lpf U Epithel Cells (Auto) (0-5) /lpf Urine Bacteria (Auto) (Negative) Ur Renal Epithelial Cell (0-5) /lpf Amorphous Sediment (None Prsent) Granular Casts (0) /lpf Urine Yeast Nasal Screen MRSA (PCR) (Negative) Random Vancomycin (10-20) mcg/ml Adenovirus (PCR) (NotDetected) B. pertussis DNA (PCR) (NotDetected) B.parapertussis DNA PCR (NotDetected) C. pneumoniae DNA (PCR) (NotDetected) Coronavirus OC43 (PCR) (NotDetected) Coronavirus HKU1 (PCR) (NotDetected) Coronavirus 229E (PCR) (NotDetected) SARS-CoV-2 (PCR) (NotDetected) Coronavirus NL63 (PCR) (NotDetected) Human Metapneumovir PCR (NotDetected) Influenza Type A (PCR) (NotDetected) Influenza Type B (PCR) (NotDetected) M. pneumoniae (PCR) (NotDetected) Parainfluenza 1 (PCR) (NotDetected) Parainfluenza 2 (PCR) (NotDetected) Parainfluenza 3 (PCR) (NotDetected) Parainfluenza 4 (PCR) (NotDetected) RSV (PCR) (NotDetected) Entero/Rhino (PCR) (NotDetected) SARS-CoV-2 RNA (DAMEON) 06/10/23 Range/Units 11:47 WBC 14.34 H (4.8-10.8) K/ul RBC 3.68 L (4.70-6.10) M/uL Hgb 11.3 L (14.0-18.0) g/dl Hct 34.1 L (42.0-52.0) % MCV 92.7 (80.0-100.0) fL MCH 30.7 (25.0-34.0) pg MCHC 33.1 (32.0-36.0) g/dL RDW Std Deviation 59.4 H (36.4-46.3) fL RDW Coeff of Ángel 17.7 H (11.5-14.5) % Plt Count 167 (130-400) K/uL MPV 10.6 (9.4-12.4) fL Immature Gran % (Auto) 1.5 % Neut % (Auto) 94.0 % Lymph % (Auto) 2.6 % [place] % (Auto) 1.8 % Eos % (Auto) 0.0 % Baso % (Auto) 0.1 % Neut # (Auto) 13.48 H (1.40-6.50) K/uL Lymph # (Auto) 0.37 L (1.20-3.40) K/uL [place] # (Auto) 0.26 (0.11-0.59) K/uL Eos # (Auto) 0.00 (0.00-0.50) K/uL Baso # (Auto) 0.02 (0.00-0.20) K/uL Immature Gran # (Auto) 0.21 H (0.01-0.20) K/uL Toxic Vacuolation 3+ Polychromasia 1+ Echinocytes 2+ PT 18.5 H (9.0-12.0) Seconds INR 1.7 H (0.9-1.1) VBG pH 7.38 (7.36-7.41) VBG pCO2 39 (38-50) mmHg VBG pO2 36 mmHg VBG HCO3 23 mmol/L VBG O2 Saturation < 60.0 % VBG Base Excess -1.8 mEq/L Sodium 137 (136-145) mmol/L Potassium 4.7 (3.5-5.1) mmol/L Chloride 104 (98-107) mmol/L Carbon Dioxide 20 L (21-32) mmol/L Anion Gap 13 H (3-11) BUN 50 H (6-23) mg/dl Creatinine 2.44 H (0.6-1.4) mg/dl Est Cr Clr Drug Dosing 18.5 ml/min Est GFR ( Amer) 27.7 ml/min Est GFR (Non-Af Amer) 23.9 ml/min BUN/Creatinine Ratio 20.5 H (10-20) Glucose 83 (70-99(Fasting)) mg/dl Lactate (0.4-2.0) mmol/L Calcium 8.5 L (8.6-10.3) mg/dl Magnesium 2.5 H (1.7-2.4) mg/dl Total Bilirubin 5.3 H (0.2-1.0) mg/dl Direct Bilirubin AST 86 H (13-39) U/L ALT 59 H (7-52) U/L Alkaline Phosphatase 165 H (34-104) U/L Total Creatine Kinase 110 (30-223) U/L Troponin I High Sens 84.7 H* (0-20) pg/ml B-Natriuretic Peptide 4052 H (0-100) pg/ml Total Protein 6.5 (6.0-8.3) gm/dl Albumin 2.9 L (3.4-5.0) gm/dl Globulin 3.6 (2.5-4.0) gm/dl Albumin/Globulin Ratio 0.8 L (0.9-2) Lipase 77 (11-82) U/L Procalcitonin 2.57 H (0-0.5) ng/ml TSH 3.088 (0.300-4.500) uIu/ml Urine Color Urine Appearance (Clear) Urine pH (4.5-7.5) Ur Specific [place] (1.000-1.030) Urine Protein (Negative) Urine Glucose (UA) (Negative) Urine Ketones (Negative) Urine Blood (Negative) Urine Nitrite (Negative) Urine Bilirubin (Negative) Urine Urobilinogen (Negative) Ur Leukocyte Esterase (Negative) Urine WBC (Auto) (0-5) /hpf Urine RBC (Auto) (0-4) /hpf U Hyaline Cast (Auto) (0-5) /lpf U Epithel Cells (Auto) (0-5) /lpf Urine Bacteria (Auto) (Negative) Ur Renal Epithelial Cell (0-5) /lpf Amorphous Sediment (None Prsent) Granular Casts (0) /lpf Urine Yeast Nasal Screen MRSA (PCR) (Negative) Random Vancomycin (10-20) mcg/ml Adenovirus (PCR) Not Detected (NotDetected) B. pertussis DNA (PCR) Not Detected (NotDetected) B.parapertussis DNA PCR Not Detected (NotDetected) C. pneumoniae DNA (PCR) Not Detected (NotDetected) Coronavirus OC43 (PCR) Not Detected (NotDetected) Coronavirus HKU1 (PCR) Not Detected (NotDetected) Coronavirus 229E (PCR) Not Detected (NotDetected) SARS-CoV-2 (PCR) Not Detected (NotDetected) Coronavirus NL63 (PCR) Not Detected (NotDetected) Human Metapneumovir PCR Not Detected (NotDetected) Influenza Type A (PCR) Not Detected (NotDetected) Influenza Type B (PCR) Not Detected (NotDetected) M. pneumoniae (PCR) Not Detected (NotDetected) Parainfluenza 1 (PCR) Not Detected (NotDetected) Parainfluenza 2 (PCR) Not Detected (NotDetected) Parainfluenza 3 (PCR) Not Detected (NotDetected) Parainfluenza 4 (PCR) Not Detected (NotDetected) RSV (PCR) Not Detected (NotDetected) Entero/Rhino (PCR) Not Detected (NotDetected) SARS-CoV-2 RNA (DAMEON)
--- NOTE | 2023-06-11 09:41 | Pharmacy Report ---
Pharmacy PK ABX Note - Date of Service June 11, 2023 - Assessment and Plan Assessment 06/11: Reviewed vancomycin level this AM, level below goal range, will redose at ~15mg/kg 06/10: 82 year old M started on vancomycin for possible pneumonia. Previously hospitalized earlier this month and was at a nursing facility/rehab and discharged just this past Saturday. Patient presenting with increased weakness/hypoxia. Day # 1 of antimicrobial therapy. Plan Vancomycin * Give vancomycin 1000 mg iv x 1 this AM based on 12.5mcg/mL level at 0221 * Patient with ARNOLD on admission (Scr has not improved yet)- Patient's estimated t1/2 life >24 hours however appears to possibly be clearing vancomycin faster. Will order a level for this evening and then another level tomorrow AM. Will dose further vancomycin per levels. Pharmacy will continue to follow and will adjust dose/frequency as necessary. Thank you.
[2023-06-11] MEDS: HEPARIN SOD 5,000 UNIT/0.5 ML VIAL SQ SCH ×2 (09:45→20:37)
--- NOTE | 2023-06-11 11:26 | Electrocardiogram Report ---
Test Reason : Blood Pressure : / mmHG Vent. Rate : 074 BPM Atrial Rate : 075 BPM P-R Int : 246 ms QRS Dur : 124 ms QT Int : 450 ms P-R-T Axes : 081 082 246 degrees QTc Int : 499 ms Sinus rhythm with 1st degree A-V block Non-specific intra-ventricular conduction delay Nonspecific ST and T wave abnormality Abnormal ECG When compared with ECG of 10-JUN-2023 11:33, Premature ventricular complexes are no longer Present DC interval has increased Criteria for Inferior infarct are no longer Present ST now depressed in Anterior leads Nonspecific T wave abnormality has replaced inverted T waves in Inferior leads Confirmed by Miky Rodriguez ([id number]) on 06/11/2023 11:25:36 AM Referred By: REFERRED SELF Confirmed By:Miky Rodriguez
--- NOTE | 2023-06-11 13:40 | Hospitalist Progress Note ---
Date of Service June 11, 2023 Assessment & Plan (1) Transaminitis: Plan 82-year-old male with PMH of HLD, hypothyroidism, ischemic cardiomyopathy EF of 15 to 20%, cardiac arrest, ventricular fibrillation, status post AICD, CAD status post CABG and stenting, CKD stage III, GERD, BPH, prostate cancer presented to the ED for evaluation of generalized weakness. Patient was recently in the hospital 05/18 through 05/27 for AMS likely secondary to UTI and was started on Zyprexa for behavioral disturbances. Patient was positive for COVID on 05/26 and started on a course of Paxlovid. In the ED he was found to be hypoxic on room air at 83%. He is being managed for the following: Recent infection due to COVID-19 virus Likely superimposed bacterial pneumonia Sepsis not POA, SIRS criteria not met at presentation. Acute hypoxic respiratory failure Increase blood lactic acid level, secondary to infection Pleural effusion: Left greater than right Patient with recent history of COVID-19 infection [06/05/2023], treated with Paxlovid as outpatient. In the ED he was hypoxic on room air at 83%. Admitting CT chest with multifocal airspace opacities, left greater than right pleural effusion. Respiratory BioFire negative, MRSA positive. Admitting WBC 14.31, lactic acid elevated. Procalcitonin elevated. Continue with Zosyn 06/10 and doxycycline [for atypical and MRSA coverage] 06/10 DC vancomycin started 06/10 Follow sputum and blood cultures Patient with rapid desaturation with minimal activity, currently requiring 6 L oxygen Pulmonology consult, await recommendation. Acute kidney injury over CKD stage III: Admitting creatinine of 2.4, baseline creatinine around 1.2. Likely prerenal due to acute illness w/ possible cardiorenal component. Admitting CTAP with moderate ascites with severe body wall edema, mild periportal edema and bilateral pleural effusion. No hydronephrosis noted. Patient was started on NS at 80 mL an hour, will decrease the rate to 45 mL an h our due to volume overload picture on exam. Nephrology consulted for help with managing ARNOLD in volume overload patient with advanced heart failure [EF 15 to 20%]. Avoid nephrotoxic. ADRIANO inhibitor and torsemide on hold. Labs in AM. Elevated troponin: Likely demand ischemia. No chest pain per patient. EKG with nonspecific conduction block. Troponin fairly flat trended. Continue telemetry monitoring. Transaminitis: LFT/INR/T. bili elevated at presentation. Liver ultrasound suggestive of cirrhosis/presence of ascites. LFTs may be acutely elevated secondary to recent COVID infection, trend LFT. Will send hepatitis panel. GI on board, appreciate recommendation. Other chronic medical conditions: Continue with/resume home meds as and when able ICD in place/ischemic cardiomyopathy: EF of 15 to 20%. Continue ASA, Plavix, statin, beta-shamir, nitrate. ADRIANO inhibitors and diuretics held due to ARNOLD. Urinary retention: Patient noted to have urinary retention in the ED, Barrera catheter placed. Voiding trial as able. Hypothyroidism: Chronic, stable. Continue levothyroxine DVT prophylaxis: Subcu heparin DNR/DNI Family updated at bedside. 06/11/23. Answered all their questions. Admission and Anticipated Discharge Date Admission Date: June 10, 2023 Subjective Patient was seen and examined at bedside. Patient was lying in bed, on 6 L oxygen via nasal cannula, NAD. Per RN patient desaturates very easily with any minimal activity. He is eating okay and moving bowels okay per RN. No new acute events overnight. Patient remains alert and awake, appears confused on conversation. Denies pain. Denies fever or headache or chest pain. Physical Exam Physical Exam: GENERAL: Alert and awake, somewhat confused. NAD, on 6L O2 via NC. appears ill/weak/frail HEENT: No pallor, + icterus. Pupils equal, round and reactive to light. Oral mucosa moist. NECK: No JVD, no neck masses. HEART: S1 and S2 heard. Regular rate and rhythm. No murmur, no gallop. RESPIRATORY SYSTEM: Normal AP diameter. No accessory muscle use. No wheezing, bl crackles. bb decreased breath sounds. ABDOMEN: Soft, bowel sounds present, nontender, + distention. CENTRAL NERVOUS SYSTEM: No facial droop. Speech is clear. Obeys simple commands. Moves extremities. EXTREMITIES: No edema, no erythema seen. Results & Data Results & Data Vital Signs (Past 12 Hours) Vital Signs Temp Pulse Pulse Resp BP Pulse Ox O2 Del Method 06/11/23 10:47 36.4 C L 67 16 107/66 90 Nasal Cannula 06/11/23 08:00 Nasal Cannula 06/11/23 07:34 36.4 C L 78 17 115/73 90 Nasal Cannula 06/11/23 07:00 75 06/11/23 03:30 36.9 C 72 18 106/67 94 Nasal Cannula O2 Flow Rate 06/11/23 10:47 6 06/11/23 08:00 4 06/11/23 07:34 6 06/11/23 07:00 06/11/23 03:30 4
[2023-06-11] MEDS: OLANZapine 5 MG TABLET PO SCH (16:10)
[2023-06-11 18:28] LABS: Creatinine Clr Calc Pharmacy 15.8 ml/min; Est GFR (Non-African American) 19.8 ml/min
[2023-06-11] MEDS ORDERED: ALBUT/IPRATROP 3MG/0.5MG NEB 3 ML VIAL NEB STA (22:37)
[2023-06-11 23:04] LABS: Base Excess ABG -5.8 mEq/L (-9-1.8); HCO3 ABG 19 mmol/L (19-24); Oxygen Saturation ABG 97.6 % (90-95); PCO2 ABG 32 mmHg (35-46); PO2 ABG 83 mmHg (80-95); pH ABG 7.37 (7.35-7.45)
[2023-06-11 23:05] LABS: Magnesium 2.5 mg/dl (1.7-2.4)
[2023-06-11] MEDS ORDERED: ALBUMIN 25% 25 GM/100 ML VIAL IV ONE (23:11)
[2023-06-11] MEDS ORDERED: FUROSEMIDE 40 MG/4 ML VIAL IV ONE (23:11)
[2023-06-11 23:13] LABS: Allen Test Pos (Pos)
[2023-06-12] MEDS ORDERED: DEXAMETHASONE SOD INJ 4 MG/ML VIAL IV STA (01:14)
--- NOTE | 2023-06-12 01:15 | Communication Note ---
Date of Service: June 12, 2023 Patient noted to be hypoxemic, O2 sat 70s. Patient denies chest pain, SOB. Not coughing more than usual as per RN. Chest x-ray as per my interpretation cardiomegaly, congestion AP Hypoxemic respiratory failure COVID-19 illness Pulmonary congestion Lasix dosed for renal function plus albumin Decadron 1 dose now for severe COVID-19 pneumonia Defer decision regarding subsequent steroid doses to AM provider.
[2023-06-12] MEDS ORDERED: dexAMETHasone 10 MG in SYRINGE 0 ML IV STA (01:21)
[2023-06-12] MEDS: DOXYCYCLINE HYCLATE 100 MG in DEXTROSE 5% MINI-B 100 ML IV SCH ×2 (03:55→15:02)
[2023-06-12] MEDS ORDERED: OLANZapine 10 MG/2.1 ML SDV IM PRN (04:41)
[2023-06-12] MEDS: LEVOTHYROXINE SODIUM 112 MCG TABLET PO SCH (06:02)
[2023-06-12 06:59] LABS: Hematocrit (blood only) 34.5 % (42.0-52.0); Mean Corpuscular Hemoglobin 30.6 pg (25.0-34.0); Mean Corpuscular Hgb Conc 31.9 g/dL (32.0-36.0); Mean Corpuscular Volume 95.8 fL (80.0-100.0); Mean Platelet Volume 11.1 fL (9.4-12.4); Platelet Count 106 K/uL (130-400); RDW Coefficient of Variation 18.3 % (11.5-14.5); RDW Standard Deviation 63.7 fL (36.4-46.3); White Blood Count 12.47 K/ul (4.8-10.8)
[2023-06-12 07:20] LABS: Albumin Level 2.8 gm/dl (3.4-5.0); BUN Creatinine Ratio 18.3 (10-20); Bilirubin,Total 4.8 mg/dl (0.2-1.0); Creatinine Clr Calc Pharmacy 15.5 ml/min; Est GFR (African American) 21.6 ml/min; Est GFR (Non-African American) 18.6 ml/min; Magnesium 2.5 mg/dl (1.7-2.4); Phosphorus 5.8 mg/dl (2.5-4.9); Potassium 4.3 mmol/L (3.5-5.1); Total Protein 5.9 gm/dl (6.0-8.3)
--- NOTE | 2023-06-12 07:37 | Pulmonary Consultation ---
Date of Consultation June 12, 2023 Assessment & Plan (1) Acute hypoxic respiratory failure: (2) CHF (congestive heart failure): (3) Ischemic cardiomyopathy: (4) ARNOLD (acute kidney injury): (5) Transaminitis: Plan IMPRESSION: 82-year-old male with a significant past medical history who presents with profound hypoxia and increasing oxygen requirement. Pulmonary medicine consulted for recommendations. RECOMMENDATIONS: 1. Acute hypoxic respiratory failure - Likely in the setting of congestive heart failure. Imaging studies reviewed which show pattern more consistent with pulmonary edema. Unfortunately, the patient is noted to have an ejection fraction between 15 and 20%. This is likely precipitating his worsening respiratory status and ongoing decline. Additionally, the patient is noted to have an ARNOLD on CKD 3 with worsening electrolyte derangements and metabolic acidosis. While the patient certainly could have a small underlying bacterial process post-COVID infection, he has been appropriately treated at this point and there is no dense consolidative changes more suggestive of a bacterial process versus pulmonary edema noted on the CT. 2. Congestive heart failure - Pattern more consistent with congestive failure on imaging studies. His BNP is greater than 4000. His ejection fraction is between 15 and 20%. Unfortunately, I am concerned that this is representing decompensated heart failure and what appears to be a more end-stage process at this point. Patient had received Lasix overnight as well as albumin. Unfortunately, given his decline in renal function, I am uncertain of how well the patient will diurese moving forward. Additionally, given his poor ejection fraction, baseline dementia, and DNR status, I am uncertain how well of a candidate the patient would be for hemodialysis. Would recommend discussing the case with cardiology for their recommendations regarding the management of the patient's decompensated failure. Palliative care discussion regarding goals of care would be very appropriate in the setting. 3. Ischemic cardiomyopathy - Again, largely driving the patient's symptoms at this point. 4. Acute kidney injury - ARNOLD on CKD 3. Patient with decline in renal function as well as noted change in electrolyte derangement. Certainly would defer to nephrology for consideration of management moving forward. Uncertain how well patient would tolerate additional diuresis at this point. Would benefit from offloading volume significantly. Uncertain of how feasible this is at this point. 5. Transaminitis - Patient with cirrhotic pattern noted on his imaging studies. His exam and labs may be more consistent with a congestive hepatopathy, particularly in a patient with a poor EF with associated MR and TR. Regardless of removal of fluid, the patient is certainly at risk for reaccumulation of both edema and small effusions noted. 6. Goals of care - Patient's current status represents multisystem organ failure. Unfortunately, his ejection fraction and baseline dementia would likely make volume offloading in the form of hemodialysis extremely difficult and I am uncertain if this would be consistent with the patient/family's goals of care. I do feel that discussion regarding transitioning care to more of a goal-directed approach seems appropriate in this situation. Consideration for palliative consultation to review this information with the patient's family. Thank you for allowing us to participate in the care of this patient. History of Present Illness Reason for Consultation: vladimir machado, louise escobar, pneumonia Requesting Physician: Dr. Son Attending Physician: Brent Medina MD History of Present Illness Patient is an 82-year-old male with a significant past medical history of hypertension, hyperlipidemia, ischemic cardiomyopathy with an EF of 15 to 20%, history of prior cardiac arrest, history of ventricular fibrillation status post AICD, coronary artery disease status post CABG and stenting, CKD 3, GERD, BPH, history of prostate cancer who presented to the emergency department with complaints of generalized weakness and fatigue. The patient has a history of dementia as well and historical information previously had been provided by family. Patient had recently been admitted at [facility] for altered mental status with hallucinations and agitation. He was subsequently discharged to [facility] for rehabilitation. Patient was able to return home on 06/08. Unfortunately, the patient has had a continued decline since returning home. The patient had tested positive for COVID on 05/26 and was subsequently placed on a course of Paxlovid. Unfortunately, the patient was noted to have profound hypoxia upon arrival in the emergency setting. He was placed on supplemental oxygen and currently has been treated for pneumonia. Concerns for elevation of the patient's T. bili concerns for cirrhosis component noted as well. Pulmonary medicine consulted for worsening oxygen requirement and concerns for pneumonia process. Upon evaluation in room 216, the patient is awake and alert, but pleasantly confused. He is unable to actively contribute to history of present illness secondary to baseline mental status. He is currently with a one-to-one present at bedside at this point. Family not available at this time. Allergies Allergy/AdvReac Type Severity Reaction Status Date / Time pantoprazole [From Protonix] Allergy Intermediate Hives Verified 06/10/23 14:41 sucralfate Allergy Intermediate Hives Verified 06/10/23 14:41 Home Medications Medication Instructions Recorded Confirmed Type aspirin 81 mg tablet,delayed 81 mg PO QAM 01/16/18 06/10/23 History release (Thomas Low Dose Aspirin) clopidogrel 75 mg tablet (Plavix) 75 mg PO QAM 01/16/18 06/10/23 History finasteride 5 mg tablet (Proscar) 5 mg PO QAM 01/16/18 06/10/23 History rosuvastatin 5 mg tablet 5 mg PO DAILY 01/01/22 06/10/23 History metoprolol succinate 50 mg 50 mg PO BID 09/25/22 06/10/23 History tablet,extended release 24 hr docusate sodium 100 mg capsule 100 mg PO BID 05/17/23 06/10/23 History isosorbide mononitrate 30 mg 30 mg PO QAM 05/17/23 06/10/23 History tablet,extended release 24 hr polyethylene glycol 3350 17 17 g PO DAILY 05/17/23 06/10/23 History gram/dose oral powder (Miralax) potassium chloride 10 mEq 10 meq PO BID 05/17/23 06/10/23 History capsule,extended release donepezil 5 mg tablet (Aricept) 5 mg PO DAILY 06/10/23 06/10/23 History famotidine 20 mg tablet 20 mg PO DAILY 06/10/23 06/10/23 History levothyroxine 112 mcg tablet 112 mcg PO DAILY 06/10/23 06/10/23 History lisinopril 2.5 mg tablet 2.5 mg PO DAILY 06/10/23 06/10/23 History nirmatrelvir 150 mg-ritonavir 100 0 ea PO .COMPLEX 06/10/23 06/10/23 History mg tablets in a dose pack (Paxlovid) olanzapine 2.5 mg tablet 2.5 mg PO DAILY 06/10/23 06/10/23 History olanzapine 5 mg tablet 5 mg PO QDD 06/10/23 06/10/23 History torsemide 10 mg tablet 5 mg PO DAILY 06/10/23 06/10/23 History Patient History Medical History (Updated 06/12/23 @ 08:08 by Donny D. Pedro, PA-C) ARNOLD (acute kidney injury) Osteoarthritis, knee Pacemaker PLACED 2012 ICD (implantable cardioverter-defibrillator) in place PLACED 2012 @ [facility] HTN (hypertension) GERD (gastroesophageal reflux disease) Hypothyroidism CKD (chronic kidney disease) stage 3, GFR 30-59 ml/min Prostate cancer Dx 2011, surveillance only BPH (benign prostatic hyperplasia) H/O cardiac arrest Stable angina pectoris Ischemic cardiomyopathy EF 30-35% H/O myocardial ischemia CAD (coronary artery disease) Surgical History History of tonsillectomy History of appendectomy Encounter for insertion of cardiac resynchronization therapy defibrillator History of cardiac cath X6 STENTS (2012 & 2014 [place]) UNSURE OF DATES -- WILL BRING STENT CARDS DOS H/O two vessel coronary artery bypass graft 1990 and 1999 Family History Other Coronary heart disease Social History Smoking Status: Never smoker Second Hand Exposure: No; Do You Dip or Chew Tobacco: No; Hx Alcohol Use: No Hx Substance Use: No Preferred Language: Nepali Communication Ability: Effective Fibreglass Laminator Required: No Beliefs That Will Affect Care: None marital status: Unknown Current Living Situation: Family Other Information That Helps Us Care for You: No Feels Safe at Home: Yes Assistive Devices: Walker Review of Systems Review of Systems: Limited secondary to patient's mental status. Physical Exam Physical Exam: VITAL SIGNS - Vital signs and nursing notes were reviewed. GENERAL - 82-year-old male appearing his stated age who is in no acute distress. Pleasantly confused. SKIN - Without rashes or lesions. NOSE - Midline and without cyanosis. MOUTH/OROPHARYNX - Without perioral cyanosis. LUNGS - Diminished breath sounds LEFT greater than right. Slight rales. No wheezing. CARDIAC - RRR with S1/S2. No murmur, rubs, or gallops appreciated. ABDOMEN - Abdominal inspection demonstrates a flat abdomen. BS normoactive all four quadrants. No tenderness, palpable masses, or ascites noted. EXTREMITIES - Nail clubbing No present. No peripheral cyanosis. No pretibial edema present. +3/5 radial palpated throughout. PSYCH - Alert, oriented, and eating breakfast. Pleasantly confused. Results & Data Results & Data Vital Signs (Past 12 Hours) Vital Signs Temp Pulse Pulse Resp BP Pulse Ox O2 Del Method 06/12/23 03:05 36.9 C 66 18 106/68 94 High Flow Nasal Cannula 06/11/23 23:03 66 06/11/23 22:59 67 22 95 Nasal Cannula 06/11/23 22:15 36.6 C 84 20 101/66 93 High Flow Nasal Cannula 06/11/23 20:20 Nasal Cannula 06/11/23 20:00 06/11/23 19:48 36.5 C 67 20 103/69 93 Nasal Cannula O2 Del Method O2 Flow Rate O2 Flow Rate 06/12/23 03:05 06/11/23 23:03 06/11/23 22:59 6 06/11/23 22:15 06/11/23 20:20 6 06/11/23 20:00 Nasal Cannula 6 06/11/23 19:48 PG Care Time/CCT Total # of Minutes Spent Total Time Spent with Patient: Total time spent is greater than 50% in coordination of care (as documented) at patient's floor/unit and/or counseling patient: Coding Level of Care Code 17339 INT INP/OBS CARE 3/75MIN Diagnoses Acute hypoxic respiratory failure J96.01 CHF (congestive heart failure) I50.9 Ischemic cardiomyopathy I25.5 ARNOLD (acute kidney injury) N17.9 Transaminitis R74.01
--- NOTE | 2023-06-12 07:57 | XRay Report ---
XR chest 1V portable CLINICAL HISTORY: sob TECHNIQUE: Single frontal radiograph of the chest was obtained. Comparison: Comparison is made to chest radiograph 06/10/2023 FINDINGS: Lines and tubes are stable. Cardiomegaly is noted. Multifocal airspace opacities are seen. Small bila teral pleural effusions are seen. IMPRESSION: 1. Multifocal airspace opacities may represent multifocal pneumonia or pulmonary edema. These are si milar in extent to prior exam. 2. Small bilateral pleural effusions. ACT 112: Negative or not required by law. Electronically signed by: Candido Oswald M.D. 06/12/2023 7:56 AM
[2023-06-12] MEDS: ROSUVASTATIN CALCIUM 5 MG TAB PO SCH (08:07)
[2023-06-12] MEDS: FAMOTIDINE 20 MG TAB PO SCH (08:07)
[2023-06-12] MEDS: OLANZAPINE 2.5 MG TAB PO SCH (08:07)
[2023-06-12] MEDS: DONEPEZIL HCL 5 MG TAB PO SCH (08:07)
[2023-06-12] MEDS: CLOPIDOGREL BISULFATE 75 MG TAB PO SCH (08:07)
[2023-06-12] MEDS: ASPIRIN 81 MG ECTAB PO SCH (08:08)
[2023-06-12] MEDS: FINASTERIDE 5 MG TAB PO SCH (08:08)
[2023-06-12] MEDS: ISOSORBIDE MONO EXTENDED REL 30 MG TABCR PO SCH (08:08)
[2023-06-12] MEDS: METOPROLOL SUCC 50MG EXT REL TAB PO SCH ×2 (08:09→22:15)
[2023-06-12] MEDS: PIPERACILLIN/TAZOBACTAM 4.5 GM in DEXTROSE 5% MINI-B 100 ML IV SCH ×2 (08:10→21:37)
[2023-06-12] MEDS: HEPARIN SOD 5,000 UNIT/0.5 ML VIAL SQ SCH ×2 (08:10→21:36)
[2023-06-12] MEDS: POLYETHYLENE (MIRALAX) 17 GM PACK PO SCH (08:11)
[2023-06-12] MEDS: DOCUSATE SODIUM 100 MG CAP PO SCH ×2 (08:12→21:05)
--- NOTE | 2023-06-12 09:05 | Nephrology Consultation ---
Date of Consultation June 12, 2023 Assessment & Plan (1) ARNOLD (acute kidney injury): Stage II acute on chronic renal failure nonoliguric and worsening. Baseline creatinine 1.1-1.2. The differential here is broad but includes ischemic ATN in the setting of multiorgan failure, particularly acute on chronic heart failure. COVID can also cause ATN and glomerular disease through cytotoxic effects of the virus itself or through cytokine release: He has longstanding proteinuria and bilirubinuria but proteinuria is perhaps a bit worse and microhematuria is new; proteinuria and microhematuria together in a post COVID ARNOLD patient portend higher mortality. HRS is always a possibility. He had a relatively small dose of diuretic overnight and renal function is markedly worse today. He is so far nonoliguric. -smaller frequent doses of lasix > 40 mg IV q6h; would not give higher lasix dose unless forced to b/c can worsen renal failure faster -strict I/O -not a candidate for inotropes at this point unless other teams say differently, though this may help diuresis -started fluid limit 1.5L daily; < 2gm sodium to continue -not a dialysis candidate -daily bmp -consolidate IV meds as much as possible -will follow with you History of Present Illness Reason for Consultation: volume overload, ARNOLD/ckd Requesting Physician: Dr Son Attending Physician: Brent Medina MD History of Present Illness 82-year-old male whom I am asked to evaluate for volume overload and acute on chronic renal failure was admitted June 10 with acute hypoxic respiratory failure from multifocal pneumonia and acute on chronic HFrEF, with transaminitis in the setting of recent COVID infection. 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 Patient also with significant dementia. He was recently admitted here May 18 to the for altered mental status, visual hallucinations, agitation and was treated for presumed UTI. He was started on Zyprexa and discharged to [facility] for rehab where he tested positive for COVID on routine screening on June 05. He was started on Paxlovid and discharged home on June 08. He takes torsemide 5 mg daily as OP. In the ED, the patient required 4 L of oxygen to maintain his O2 sats. Labs were also remarkable for WBC 14.3 K, INR 1.7, lactate 2.6 - > 2.2, transaminitis (T. bili 5.3, AST 86, ALT 59, alk phos 165), HS troponin 84 - > 94, proBNP 4000, procalcitonin 2.57. CXR shows multifocal airspace opacities. Patient was started on Zosyn and had 250 cc NS His discharge creatinine on May 23 was 1.1, with a range of 1.1-1.2 during early May admission here. His creatinine on presentation was 2.4 with steady uptrend to peak at 3 this morning. Overnight he developed hypoxia with sats in the 70s. Chest x-ray with increasing vascular congestion: He received a dose of Lasix plus albumin as well as a dose of Decadron for severe COVID-19 pneumonia. Allergies Allergy/AdvReac Type Severity Reaction Status Date / Time pantoprazole [From Protonix] Allergy Intermediate Hives Verified 06/10/23 14:41 sucralfate Allergy Intermediate Hives Verified 06/10/23 14:41 Home Medications Medication Instructions Recorded Confirmed Type aspirin 81 mg tablet,delayed 81 mg PO QAM 01/16/18 06/10/23 History release (Thomas Low Dose Aspirin) clopidogrel 75 mg tablet (Plavix) 75 mg PO QAM 01/16/18 06/10/23 History finasteride 5 mg tablet (Proscar) 5 mg PO QAM 01/16/18 06/10/23 History rosuvastatin 5 mg tablet 5 mg PO DAILY 01/01/22 06/10/23 History metoprolol succinate 50 mg 50 mg PO BID 09/25/22 06/10/23 History tablet,extended release 24 hr docusate sodium 100 mg capsule 100 mg PO BID 05/17/23 06/10/23 History isosorbide mononitrate 30 mg 30 mg PO QAM 05/17/23 06/10/23 History tablet,extended release 24 hr polyethylene glycol 3350 17 17 g PO DAILY 05/17/23 06/10/23 History gram/dose oral powder (Miralax) potassium chloride 10 mEq 10 meq PO BID 05/17/23 06/10/23 History capsule,extended release donepezil 5 mg tablet (Aricept) 5 mg PO DAILY 06/10/23 06/10/23 History famotidine 20 mg tablet 20 mg PO DAILY 06/10/23 06/10/23 History levothyroxine 112 mcg tablet 112 mcg PO DAILY 06/10/23 06/10/23 History lisinopril 2.5 mg tablet 2.5 mg PO DAILY 06/10/23 06/10/23 History nirmatrelvir 150 mg-ritonavir 100 0 ea PO .COMPLEX 06/10/23 06/10/23 History mg tablets in a dose pack (Paxlovid) olanzapine 2.5 mg tablet 2.5 mg PO DAILY 06/10/23 06/10/23 History olanzapine 5 mg tablet 5 mg PO QDD 06/10/23 06/10/23 History torsemide 10 mg tablet 5 mg PO DAILY 06/10/23 06/10/23 History Patient History Medical History ARNOLD (acute kidney injury) Osteoarthritis, knee Pacemaker PLACED 2012 ICD (implantable cardioverter-defibrillator) in place PLACED 2012 @ [facility] HTN (hypertension) GERD (gastroesophageal reflux disease) Hypothyroidism CKD (chronic kidney disease) stage 3, GFR 30-59 ml/min Prostate cancer Dx 2011, surveillance only BPH (benign prostatic hyperplasia) H/O cardiac arrest Stable angina pectoris Ischemic cardiomyopathy EF 30-35% H/O myocardial ischemia CAD (coronary artery disease) Surgical History History of tonsillectomy History of appendectomy Encounter for insertion of cardiac resynchronization therapy defibrillator History of cardiac cath X6 STENTS (2012 & 2014 [facility]LINA) UNSURE OF DATES -- WILL BRING STENT CARDS DOS H/O two vessel coronary artery bypass graft 1990 and 1999 Family History Other Coronary heart disease Social History Smoking Status: Never smoker Second Hand Exposure: No; Do You Dip or Chew Tobacco: No; Hx Alcohol Use: No Hx Substance Use: No Preferred Language: Slovenian Communication Ability: Effective [employer] Required: No Beliefs That Will Affect Care: None marital status: Unknown Current Living Situation: Family Other Information That Helps Us Care for You: No Feels Safe at Home: Yes Assistive Devices: Walker Review of Systems 2 Review of Systems: Unobtainable due to cognitive status (dementia; denies chest or musculoskeletal or right upper quadrant pain or worsening dyspnea) Physical Exam 2 Constitutional: well developed, + ill appearing, + cachectic, + frail appearing and cooperative; no acute distress Eyes: EOM intact bilaterally ENMT: Ears: no external ear abnormality Nose: no external nose abnormality Mouth: + dry oral mucous membranes Neck: no nuchal rigidity Respiratory: normal respiratory effort; no cough Auscultation: + diminished lung sounds and + crackles (Right base) Cardiovascular: Rate/Rhythm: regular rate and regular rhythm Heart Sounds: + murmur Extremities: no edema Gastrointestinal (Abdomen): Inspection/Auscultation: normal bowel sounds P ercussion/Palpation: abdomen soft; abdomen nontender Musculoskeletal: Extremities: strength 5/5 throughout Skin: no rashes, warm and dry + jaundice Neurologic: catalan, fluent speech, no tremor Psychiatric: Orientation: alert and oriented to person Results & Data Vital Signs (Past 12 Hours) Vital Signs Temp Pulse Pulse Resp BP Pulse Ox O2 Del Method 06/12/23 08:06 87 20 112/75 90 Oxymask 06/12/23 03:05 36.9 C 66 18 106/68 94 High Flow Nasal Cannula 06/11/23 23:03 66 06/11/23 22:59 67 22 95 Nasal Cannula 06/11/23 22:15 36.6 C 84 20 101/66 93 High Flow Nasal Cannula O2 Flow Rate 06/12/23 08:06 15 06/12/23 03:05 06/11/23 23:03 06/11/23 22:59 6 06/11/23 22:15 Laboratory Results 06/12/23 06:00 06/12/23 06:00 ABG 2300 7.37, 32, 83, bicarb 19, 98% taken on 7 L Admission cultures all no growth to date Presenting urinalysis remarkable for granular casts and amorphous sediment with renal epithelial cells, over 30 epithelial cells, greater than 30 white cells, no bacteria, trace leukocyte Estrace, 1+ bilirubin and blood with 3+ protein a pH of 5.5 and dark yellow turbid urine specific gravity 1017 Diagnostic Findings Chest x-ray yesterday 1. Multifocal airspace opacities may represent multifocal pneumonia or pulmonary edema. These are similar in extent to prior exam. 2. Small bilateral pleural effusions. CT chest non con 1. Cardiomegaly and cardiac pacemaker without evidence of congestive failure. 2. There are multifocal airspace opacities with dense airspace consolidation in the left upper lobe and lingula. This could represent pulmonary edema and/or multifocal pneumonia. Clinical correlation will be essential and radiographic follow-up to resolution is recommended. 3. Left larger than right pleural effusions with dependent atelectasis. 4. There is body wall edema and abdominal ascites. CT abdomen pelvis Noncon June 10 FINDINGS: The lung bases will be reported on the same day chest CTA. The heart is enlarged. A pacemaker wire is noted. Small right and moderate left pleural effusions. Patchy bibasilar densities are noted. There is mild motion artifact. No pneumoperitoneum. No pneumatosis. There are healed right anterior rib fractures. No acute fractures identified. There are poststernotomy changes. Severe body wall edema. Surgical clips within the left groin. Prior prostatectomy. Mild periportal edema. No hepatic or splenic masses. The unenhanced pancreas and adrenal glands are unremarkable. There are few punctate bilateral renal calculi. There is an exophytic 13 mm hypodense lesion within the left kidney on image 133. This is indeterminate but favors a hyperdense cyst. There are few additional bilateral renal hypodense lesions with the largest on the right measuring 2 cm. These are also technically indeterminate on this noncontrast study but statistically represent cysts. No ureteral stones. No hydronephrosis. Moderate calcified plaque within the normal caliber abdominal aorta. No retroperitoneal or pelvic lymphadenopathy. The bladder is moderately distended. This may be secondary to the enlarged prostate gland. There are few small bladder diverticula are noted. Moderate ascites. Suboptimal evaluation for bowel pathology due to the lack of intravenous and oral contrast. However, there is no definite bowel wall thickening or obstruction. Colonic diverticulosis. No evidence for acute diverticulitis. Questionable thickening of the ascending colon is likely due to underdistention. IMPRESSION: 1. Moderate ascites with severe body wall edema, mild periportal edema, and bilateral pleural effusions. 2. No definite bowel wall thickening or obstruction. Questionable thickening of the ascending colon is likely due to underdistention. 3. Colonic diverticulosis. No evidence for acute diverticulitis. 4. The bladder is moderately distended. This may be due to the enlarged prostate gland. 5. Bilateral nephrolithiasis. No hydronephrosis.
--- NOTE | 2023-06-12 13:57 | Hospitalist Progress Note ---
Date of Service June 12, 2023 Assessment & Plan (1) Transaminitis: Plan 82-year-old male with PMH of HLD, hypothyroidism, ischemic cardiomyopathy EF of 15 to 20%, cardiac arrest, ventricular fibrillation, status post AICD, CAD status post CABG and stenting, CKD stage III, GERD, BPH, prostate cancer presented to the ED for evaluation of generalized weakness. Patient was recently in the hospital 05/18 through 05/27 for AMS likely secondary to UTI and was started on Zyprexa for behavioral disturbances. Patient was positive for COVID on 05/26 and started on a course of Paxlovid. In the ED he was found to be hypoxic on room air at 83%. He is being managed for the following: Recent infection due to COVID-19 virus Multifocal pneumonia Acute hypoxic respiratory failure Patient with recent history of COVID-19 infection [06/05/2023], treated with Paxlovid as outpatient. In the ED he was hypoxic on room air at 83%. Admitting CT chest with multifocal airspace opacities, left greater than right pleural effusion. Respiratory BioFire negative, MRSA positive. Admitting WBC 14.31, lactic acid elevated. Procalcitonin elevated. Continue with Zosyn 06/10 and doxycycline [for atypical and MRSA coverage] 06/10 Patient with rapid desaturation with minimal activity, currently requiring 6 L oxygen Pulmonology consult; shortness of breath likely due to multifocal pneumonia, acute on chronic CHF. Acute kidney injury over CKD stage III: Likely secondary to sepsis/cardiorenal syndrome Admitting creatinine of 2.4, baseline creatinine around 1.2. Admitting CTAP with moderate ascites with severe body wall edema, mild peripor maylin edema and bilateral pleural effusion. No hydronephrosis noted. Nephrology consulted for help with managing ARNOLD in volume overload patient with advanced heart failure [EF 15 to 20%]. Avoid nephrotoxic. ADRIANO inhibitor and torsemide on hold. Labs in AM. Started on Lasix 60 mg IV twice daily. Elevated troponin: Likely demand ischemia. No chest pain per patient. EKG with nonspecific conduction block. Troponin fairly flat trended. Continue telemetry monitoring. Transaminitis: LFT/INR/T. bili elevated at presentation. Liver ultrasound sug gestive of cirrhosis/presence of ascites. LFTs may be acutely elevated secondary to recent COVID infection, trend LFT. Hepatitis panel sent. Other chronic medical conditions: Continue with/resume home meds as and when able ICD in place/ischemic cardiomyopathy: EF of 15 to 20%. Continue ASA, Plavix, statin, beta-shamir, nitrate. ADRIANO inhibitors held due to ARNOLD. Urinary retention: Patient noted to have urinary retention in the ED, Barrera catheter placed. Voiding trial as able. Hypothyroidism: Chronic, stable. Continue levothyroxine DVT prophylaxis: Subcu heparin DNR/DNI Time spent evaluating patient, direct bedside care, chart review, placing orders, interpretation of diagnostic studies, discussion with consultants, patient, and family members, as well as other required patient management activities is 50 minutes Please note the above document was generated using voice recognition software. It may contain grammatical, syntax or spelling errors. Any formal questions or concerns about the content, text or information contained within the body of this dictation should be directly addressed to the provider for clarification Admission and Anticipated Discharge Date Admission Date: June 10, 2023 Subjective Patient seen and examined at bedside. Is sitting up on the bed; not in distress. He denies shortness of breath, fever, chills or chest pain. Review of Systems Review of Systems: All systems reviewed & are unremarkable except as noted in Subjective Physical Exam Physical Exam: GENERAL: Alert and awake, needs redirection's. HEENT: No pallor, + icterus. Pupils equal, round and reactive to light. Oral mucosa moist. NECK: No JVD, no neck masses. HEART: S1 and S2 heard. Regular rate and rhythm. No murmur, no gallop. RESPIRATORY SYSTEM: Normal AP diameter. No accessory muscle use. Bilateral crackles present. ABDOMEN: Soft, bowel sounds present, nontender, + distention. CENTRAL NERVOUS SYSTEM: No facial droop. Speech is clear. Obeys simple commands. Moves extremities. EXTREMITIES: No edema, no erythema seen. Results & Data Results & Data Vital Signs (Past 12 Hours) Vital Signs Temp Pulse Pulse Resp BP Pulse Ox Pulse Ox 06/12/23 11:10 65 22 113/75 93 06/12/23 08:06 87 20 112/75 90 06/12/23 08:00 66 06/12/23 08:00 06/12/23 08:00 96 06/12/23 03:05 36.9 C 66 18 106/68 94 O2 Del Method O2 Del Method O2 Flow Rate O2 Flow Rate 06/12/23 11:10 Nasal Cannula 06/12/23 08:06 Oxymask 15 06/12/23 08:00 06/12/23 08:00 High Flow Nasal Cannula 7 06/12/23 08:00 High Flow Nasal Cannula 7 06/12/23 03:05 High Flow Nasal Cannula
[2023-06-12] MEDS ORDERED: FUROSEMIDE 40 MG/4 ML VIAL IV SCH (14:05)
[2023-06-12] MEDS: FUROSEMIDE INJ 20 MG/2 ML VIAL IV SCH ×2 (15:02→21:36)
[2023-06-12] MEDS ORDERED: ONDANSETRON INJ 2 MG/ML 2 ML VIAL IV PRN (16:38)
[2023-06-12] MEDS ORDERED: LORazepam 0.5 MG in SYRINGE 0.25 ML IV PRN (16:38)
[2023-06-12] MEDS ORDERED: ONDANSETRON 4 MG OD TAB SL PRN (16:38)
[2023-06-12] MEDS ORDERED: LORazepam 0.5 MG TAB PO PRN (16:38)
[2023-06-12] MEDS: OLANZapine 5 MG TABLET PO SCH (16:45)
[2023-06-12] MEDS: MoRPHine SULFATE 2 MG/ML CARP IV PRN (21:52)
[2023-06-13] MEDS: LEVOTHYROXINE SODIUM 112 MCG TABLET PO SCH (06:30)
[2023-06-13] MEDS: MoRPHine SULFATE 2 MG/ML CARP IV PRN ×2 (08:30→13:30)
[2023-06-13] MEDS: ISOSORBIDE MONO EXTENDED REL 30 MG TABCR PO SCH (08:31)
[2023-06-13] MEDS: FINASTERIDE 5 MG TAB PO SCH (08:31)
[2023-06-13] MEDS: METOPROLOL SUCC 50MG EXT REL TAB PO SCH (08:31)
[2023-06-13] MEDS: OLANZAPINE 2.5 MG TAB PO SCH (08:32)
[2023-06-13 10:56] LABS: HBSAG NON-REACTIVE (NON-REACTIVE); Hepatitis A Antibody IgM NON-REACTIVE (NON-REACTIVE); Hepatitis B Core Antibody IgM NON-REACTIVE (NON-REACTIVE)
--- NOTE | 2023-06-13 13:57 | Hospitalist Progress Note ---
Date of Service June 13, 2023 Assessment & Plan (1) Transaminitis: Plan 82-year-old male with PMH of HLD, hypothyroidism, ischemic cardiomyopathy EF of 15 to 20%, cardiac arrest, ventricular fibrillation, status post AICD, CAD status post CABG and stenting, CKD stage III, GERD, BPH, prostate cancer presented to the ED for evaluation of generalized weakness. Patient was recently in the hospital 05/18 through 05/27 for AMS likely secondary to UTI and was started on Zyprexa for behavioral disturbances. Patient was positive for COVID on 05/26 and started on a course of Paxlovid. In the ED he was found to be hypoxic on room air at 83%. Recent infection due to COVID-19 virus Multifocal pneumonia Acute hypoxic respiratory failure ARNOLD Transaminitis During the hospitalization, patient was treated with IV antibiotics for multifocal pneumonia. Patient developed multiorgan failure with acute kidney injury, liver failure and increasing respiratory distress Goals of care was discussed with the patient's son. Patient was transitioned to comfort care. Morphine, Ativan as needed. DVT prophylaxis: Subcu heparin DNR/DNI Updated patient's son over the phone. Dispositionon comfort care measures. Inpatient hospice to evaluate.. Case management on board. Please note the above document was generated using voice recognition software. It may contain grammatical, syntax or spelling errors. Any formal questions or concerns about the content, text or information contained within the body of this dictation should be directly addressed to the provider for clarification Admission and Anticipated Discharge Date Admission Date: June 10, 2023 Subjective Patient seen and examined bedside. He is comfortable through alert. Distress. Denies any pain or discomfort. Review of Systems Review of Systems: Unobtainable due to cognitive status Physical Exam Physical Exam: GENERAL: Alert and awake, needs redirection's. HEENT: No pallor, + icterus. Pupils equal, round and reactive to light. Oral mucosa moist. NECK: No JVD, no neck masses. HEART: S1 and S2 heard. Regular rate and rhythm. No murmur, no gallop. RESPIRATORY SYSTEM: Normal AP diameter. No accessory muscle use. Bilateral crackles present. ABDOMEN: Soft, bowel sounds present, nontender, + distention. CENTRAL NERVOUS SYSTEM: No facial droop. Speech is clear. Obeys simple commands. Moves extremities. EXTREMITIES: No edema, no erythema seen. Results & Data Results & Data Vital Signs (Past 12 Hours) Vital Signs O2 Del Method O2 Flow Rate 06/13/23 07:42 Nasal Cannula 2
[2023-06-13] MEDS: OLANZapine 5 MG TABLET PO SCH (15:39)
--- NOTE | 2023-06-13 16:01 | Communication Note ---
Date of Service: June 13, 2023 Patient was seen at bedside . Heart and lung sounds are absent. No spontaneous cardiac or respiratory activity. Patient is not responsive/nonreactive to verbal or painful stimuli. No corneal or pupillary reflex present. Pupil fixed and dilated. He was pronounced at 3: 56 pm on 06/13/2023.
--- NOTE | 2023-06-13 16:03 | Discharge Summary ---
Date of Service June 13, 2023 Admission HPI Per Admitting Provider 82-year-old male with PMH HLD, hypothyroidism, ischemic cardiomyopathy EF 15 to 20%, history of cardiac arrest, history of ventricular fibrillation, s/p AICD, CAD s/p CABG and stenting, CKD stage III, GERD, BPH, history of prostate cancer, and other problems listed below who presents to the ED for evaluation of generalized weakness. History is limited from the patient due to underlying dementia, history obtained from his son over the telephone and review of recent inpatient records, outpatient PCP and cardiology records. Patient recently admitted to [facility] 05/18 through 05/27 for altered mental status, visual yandel lucinations, agitation. Patient was treated for a presumed UTI. Patient was started on Zyprexa for behavioral disturbances. He was discharged to [facility] for rehab. Patient returned home on 06/08. Son states that patient has continually gone downhill since arriving home. States the patient was very weak this morning and he had to lift him out of bed. Patient was also diagnosed with COVID-19 on 06/05 at [facility]. I spoke with the staff. They stated the patient had cough and congestion the previous week and had 3 negative COVID test. Patient was retested on 05/[address] [facility] wide testing. Patient was started on a course of Paxlovid. At the time my exam, patient is resting in bed and offers no complaints. In the ED, patient was found to be hypoxic on room air at 83%. He is currently requiring 4 L of oxygen via nasal cannula. Labs show WBC 14.3 K, INR 1.7, creatinine 2.4, lactate 2.6 - > 2.2, transaminitis (T. bili 5.3, AST 86, ALT 59, alk phos 165), HS troponin 84 - > 94, proBNP 4000, procalcitonin 2.57. CXR shows multifocal airspace opacities. Patient was given IV Zosyn and 250 cc NSS. Admission Exam Per Admitting Provider Constitutional: + ill appearing and + thin; no acute distressEyes: PERRL; no conjunctival abnormality and sclerae not anictericENMT: external ear and nose normal, oropharynx normalRespiratory: normal respiratory effort; no respiratory distress Auscultation: + diminished lung soundsCardiovascular: Rate/Rhythm: regular rate and regular rhythm Vessels: normal peripheral pulses Extremities: no edemaGastrointestinal (Abdomen): Inspection/Auscultation: + abdomen distended Percussion/Palpation: abdomen soft and + ascites; abdomen nontender Musculoskeletal: no cyanosis or clubbing, extremities motor strength 5/5Skin: no rashes, warm and dry + jaundice (Mild)Neurologic: PERRL, EOMI, accommodation nl, no face palsy, no dysarthriaPsychiatric: Orientation: alert, oriented to person and oriented to place; + not oriented to time Cognition: + recent memory not intact Insight: + limited insight Principal Diagnosis Recent infection due to COVID-19 virus Multifocal pneumonia Acute hypoxic respiratory failure ARNOLD Transaminitis Discharge Exam Patient Discharge Data Allergies Allergy/AdvReac Type Severity Reaction Status Date / Time pantoprazole [From Protonix] Allergy Intermediate Hives Verified 06/10/23 14:41 sucralfate Allergy Intermediate Hives Verified 06/10/23 14:41 Consultations 06/10/23 13:07 ED Decision to Admit Stat 06/10/23 15:31 Consult Gastroenterology Routine 06/11/23 12:34 Consult Nephrology Routine 06/11/23 12:50 Consult Pulmonology Routine Ordered Studies 06/10/23 11:38 CT head/brain wo con Stat 06/10/23 11:39 CT cervical spine wo con Stat 06/10/23 12:41 CT abd pelvis wo con Stat CT chest diagnostic wo con Stat 06/10/23 19:18 US RUQ [US liver] Routine Hospital Course (1) Transaminitis: Plan 82-year-old male with PMH of HLD, hypothyroidism, ischemic cardiomyopathy EF of 15 to 20%, cardiac arrest, ventricular fibrillation, status post AICD, CAD status post CABG and stenting, CKD stage III, GERD, BPH, prostate cancer presented to the ED for evaluation of generalized weakness. Patient was recently in the hospital 05/18 through 05/27 for AMS likely secondary to UTI and was started on Zyprexa for behavioral disturbances. Patient was positive for COVID on 05/26 and started on a course of Paxlovid. Multifocal pneumonia Acute hypoxic respiratory failure ARNOLD Transaminitis During the hospitalization, patient was treated with IV antibiotics for multifocal pneumonia. Patient developed multiorgan failure with acute kidney injury, liver failure and increasing respiratory distress Goals of care was discussed with with family. Patient was transitioned to comfort care. Patient at 3: 56 pm at 06/13/2023. Family(son) was call over the phone Please note the above document was generated using voice recognition software. It may contain grammatical, syntax or spelling errors. Any formal questions or concerns about the content, text or information contained within the body of this dictation should be directly addressed to the provider for clarification Total Time Total Time Spent Total Time Spent (In Minutes): 32 Total Time Includes: Examination of the Patient, Discharge Planning, Medication Reconciliation, Communication With Other Providers and Other Discharge Plan Discharge Items Patient Disposition: Other Date/Time: 06/13/23 15:56
== END 2023-06-13 18:37 | disposition expired | DRG 177 ==
LOC: EDBD → ED 11:24 → MERGE 11:24 → EDINP 13:35 → SUATTDRO 13:35 → 2S 19:30 → 3W 06-13 00:05